=== PATIENT | male | born 1950 | race Caucasian/White ===

== ENCOUNTER 2020-03-19 14:23 | Outpatient (REF) | payer OTHER, MEDICARE, SELFPAY ==
[2020-03-19 15:02] LABS: MANUAL DIFF FLAG NO
[2020-03-19 15:04] LABS: Basophils Absolute Auto 0.1 X10*3/uL (0.0-0.2); Basophils Percent Auto 0.7 % (0-2); Eosinophils Absolute Auto 0.2 X10*3/uL (0.0-0.4); Hematocrit 45.1 % (42-52); Hemoglobin 15.3 g/dl (14.0-18.0); Imm Gran Abs Auto 0.02 X10*3/uL (0.00-0.03); Imm Gran Pct Auto 0.2 % (0.0-0.4); Lymphocytes Absolute Auto 2.1 X10*3/uL (1.2-4.9); Lymphocytes Percent Auto 25.6 % (20-40); Mean Corpuscular HGB Conc 33.9 g/dl (31.0-36.0); Mean Corpuscular Hemoglobin 32.8 pg (27.0-33.0); Mean Corpuscular Volume 96.6 fL (80-98); Mean Platelet Volume 11.2 fL (9.4-12.4); Monocytes Absolute Auto 0.8 X10*3/uL (0.1-1.2); Monocytes Percent Auto 9.3 % (2-11); Neutrophils Absolute Auto 5.1 X10*3/uL (2.0-8.3); Neutrophils Percent Auto 62.2 % (45-73); Platelet Count 176 X10*3/uL (160-400); Red Blood Count 4.67 X10*6/uL (4.60-5.80); Red Cell Distribution Width 13.1 % (11.0-16.0); White Blood Count 8.2 X10*3/uL (4.8-10.8)
[2020-03-19 15:32] LABS: Anion Gap 17 (12-20); Blood Urea Nitrogen 16 mg/dL (9-16); Calcium 9.1 mg/dL (8.4-10.2); Carbon Dioxide 23 mmol/L (22-29); Chloride 101 mmol/L (96-108); Estimated Glomerular Filt Rate 52; Glucose Random 349 mg/dL (60-115); Potassium 5.3 mmol/l (3.3-5.1); Sodium 136 mmol/L (135-145)
[2020-03-19 15:54] LABS: Thyroid Stimulating Hormone 0.67 uIU/mL (0.32-4.0)
== END 2020-03-19 14:24 | disposition home or self-care (01) ==
LOC: HO.LAB 14:23
PROVIDERS: PCP Internal Medicine; Visit Provider Internal Medicine
DX: R51.9 Headache, unspecified (principal); E03.9 Hypothyroidism, unspecified
CPT/HCPCS: 36415; 80048; 84443; 85025

== ENCOUNTER → 2020-04-10 15:45 | Outpatient (BNV) | payer BC, OTHER, MEDICARE, SELFPAY | PROVIDERS: PCP Internal Medicine; Visit Provider Internal Medicine | DX: Z85.038 Personal history of other malignant neoplasm of large intestine (principal); Z85.05 Personal history of malignant neoplasm of liver | CPT/HCPCS: 99213; 99214 ==

== ENCOUNTER 2021-03-11 14:51 | Outpatient (REF) | payer OTHER, MEDICARE, SELFPAY ==
--- NOTE | ~2021-03-11 | US_ITS ---
EXAMINATION: US VENOUS ULTRASOUND WITH DOPPLER LOWER EXTREMITY, RIGHT CLINICAL INFORMATION: Right leg edema COMPARISON: None TECHNIQUE: Ultrasound of the deep veins is performed from the hip to the calf with compression sonography and color and pulse Doppler assessment. Spectral analysis with color-flow imaging is performed. FINDINGS: There is normal venous compression and respiratory variation and augmented flow. The visualized common femoral vein, superficial femoral vein, profunda femoral vein, popliteal vein, and the trifurcation region shows no evidence of deep venous thrombosis. There is no significant popliteal fossa cyst. If the patient's symptoms persist, followup ultrasound in 5 days 7 days might be of value to exclude proximal propagation from a non-visualized calf vein. US/US venous duplex LE RT IMPRESSION: No DVT demonstrated in the right lower extremity.
[2021-03-11 15:28] LABS: INTERNATIONAL NORM RATIO 1.1 (0.9-1.1); Prothrombin Time 12.4 SEC (9.9-13.0)
[2021-03-11 15:31] LABS: Partial Thromboplastin Time 37.9 SEC (24.1-38.0)
[2021-03-11 15:36] LABS: Alanine Aminotransferase 28 U/L (0-40); Albumin Level 3.6 g/dL (3.5-5.0); Alkaline Phosphatase 73 U/L (39-117); Anion Gap 11 (12-20); Aspartate Amino Transferase 30 U/L (5-37); Bilirubin Total 0.8 mg/dL (0.0-1.0); Blood Urea Nitrogen 16 mg/dL (9-16); Calcium 9.5 mg/dL (8.4-10.2); Carbon Dioxide 25 mmol/L (22-29); Chloride 107 mmol/L (96-108); Estimated Glomerular Filt Rate > 60; Glucose Random 160 mg/dL (60-115); Sodium 139 mmol/L (135-145); Total Protein 7.2 g/dL (6.5-8.0)
== END 2021-03-11 14:52 | disposition home or self-care (01) ==
LOC: HO.LAB 14:51
PROVIDERS: PCP Internal Medicine; Visit Provider Internal Medicine
DX: Z01.818 Encounter for other preprocedural examination (principal)
CPT/HCPCS: 36415; 80053; 85610; 85730

== ENCOUNTER 2021-05-23 14:49 | Outpatient (REF) | payer OTHER, MEDICARE, SELFPAY | END 2021-05-23 14:50 | disposition home or self-care (01) | LOC: HO.US 14:49 | PROVIDERS: PCP Internal Medicine; Visit Provider Internal Medicine | DX: R60.0 Localized edema (principal) | CPT/HCPCS: 93971 ==

== ENCOUNTER 2022-02-06 14:31 | Outpatient (REF) | payer OTHER, MEDICARE, SELFPAY ==
[2022-02-06 14:55] LABS: MANUAL DIFF FLAG NO
[2022-02-06 15:17] LABS: Basophils Absolute Auto 0.1 X10*3/uL (0.0-0.2); Eosinophils Absolute Auto 0.2 X10*3/uL (0.0-0.4); Eosinophils Percent Auto 4.1 % (0-4); Hemoglobin 14.2 g/dl (14.0-18.0); Imm Gran Abs Auto 0.02 X10*3/uL (0.00-0.03); Imm Gran Pct Auto 0.3 % (0.0-0.4); Lymphocytes Absolute Auto 1.7 X10*3/uL (1.2-4.9); Lymphocytes Percent Auto 29.5 % (20-40); Mean Corpuscular HGB Conc 33.8 g/dl (31.0-36.0); Mean Corpuscular Hemoglobin 32.4 pg (27.0-33.0); Mean Corpuscular Volume 95.9 fL (80.0-98.0); Mean Platelet Volume 10.4 fL (9.4-12.4); Monocytes Absolute Auto 0.8 X10*3/uL (0.1-1.2); Monocytes Percent Auto 12.8 % (2-11); Neutrophils Absolute Auto 3.1 x10*3/uL (2.0-8.3); Neutrophils Percent Auto 52.3 % (45-73); Platelet Count 225 X10*3/uL (160-400); Red Blood Count 4.38 X10*6/uL (4.60-5.80); Red Cell Distribution Width 13.3 % (11.0-16.0); White Blood Count 5.9 X10*3/uL (4.8-10.8)
[2022-02-06 16:54] LABS: Alanine Aminotransferase 27 U/L (0-40); Albumin Level 3.8 g/dL (3.5-5.0); Alkaline Phosphatase 58 U/L (39-117); Anion Gap 12 (12-20); Aspartate Amino Transferase 28 U/L (5-37); Bilirubin Total 0.7 mg/dL (0.0-1.0); Blood Urea Nitrogen 20 mg/dL (9-16); Calcium 9.2 mg/dL (8.4-10.2); Carbon Dioxide 27 mmol/L (22-29); Chloride 104 mmol/L (96-108); Cholesterol 142 mg/dL; Estimated Glomerular Filt Rate 58; Glucose Fasting 124 mg/dL (60-99); HDL Cholesterol 37 mg/dL; LDL Cholesterol Calculated 81 mg/dl; Potassium 4.9 mmol/L (3.3-5.1); Sodium 138 mmol/L (135-145); Thyroid Stimulating Hormone 1.43 uIU/mL (0.32-4.0); Total Protein 7.2 g/dL (6.5-8.0); Triglycerides 120 mg/dL
[2022-02-11 21:04] LABS: Testosterone, Free 28.7 pg/mL (30.0-135.0); Testosterone, Total 479 ng/dL (250-1100)
== END 2022-02-06 14:32 | disposition home or self-care (01) ==
LOC: HO.LAB 14:31
PROVIDERS: PCP Internal Medicine; Visit Provider Internal Medicine
DX: I10 Essential (primary) hypertension (principal); E03.9 Hypothyroidism, unspecified; E78.5 Hyperlipidemia, unspecified; R68.82 Decreased libido; Z13.0 Encounter for screening for diseases of the blood and blood-forming organs and certain disorders involving the immune mechanism
CPT/HCPCS: 36415; 80053; 80061; 84402; 84403; 84443; 85025

== ENCOUNTER 2022-10-30 13:03 | Outpatient (AMB) | payer BC, MEDICARE, SELFPAY ==
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
[2022-10-30 13:07] VITALS: BP 160/80; PULSE 85; BMI 41.3
== END 2022-10-30 13:50 | disposition home or self-care (01) ==
PROVIDERS: PCP Internal Medicine; Visit Provider Internal Medicine
DX: B35.6 Tinea cruris (principal)
CPT/HCPCS: 99213

== ENCOUNTER 2022-12-14 14:38 | Outpatient (REF) | payer BC, MEDICARE, SELFPAY ==
--- NOTE | 2022-12-14 14:56 | ECG_ITS ---
Test Reason : preop Blood Pressure : / mmHG Vent. Rate : 060 BPM Atrial Rate : 060 BPM P-R Int : 170 ms QRS Dur : 136 ms QT Int : 436 ms P-R-T Axes : -13 -21 -12 degrees QTc Int : 436 ms Normal sinus rhythm Right bundle branch block Abnormal ECG When compared with ECG of 10-SEP-2017 15:10, Right bundle branch block is now Present Referred By: Nikos Mendez Electronically Signed By:ALFREDO SEQUEIRA MD
== END 2022-12-14 14:39 | disposition home or self-care (01) ==
LOC: HO.LAB 14:38
PROVIDERS: Visit Provider Radiology Diagnostic Radiology
DX: Z01.818 Encounter for other preprocedural examination (principal)
CPT/HCPCS: 93005

== ENCOUNTER 2023-05-23 19:11 | Inpatient (IN) | payer BC, MEDICARE, SELFPAY ==
--- NOTE | 2023-05-23 | ECG_ITS ---
Test Reason : fall Blood Pressure : / mmHG Vent. Rate : 059 BPM Atrial Rate : 059 BPM P-R Int : 162 ms QRS Dur : 154 ms QT Int : 502 ms P-R-T Axes : -01 -29 -12 degrees QTc Int : 496 ms Sinus bradycardia Non-specific intra-ventricular conduction block Abnormal ECG When compared with ECG of 14-DEC-2022 14:58, Non-specific intra-ventricular conduction block has replaced Right bundle branch block Referred By: Generic ED Physician Electronically Signed By:Noe Sams
--- NOTE | ~2023-05-23 | CT_ITS ---
EXAMINATION: CT HEAD WITHOUT CONTRAST CT CERVICAL SPINE WITHOUT CONTRAST CLINICAL INFORMATION: Fall. COMPARISON: None available. TECHNIQUE: Contiguous axial imaging was performed from the skull base to vertex without intravenous administration of contrast. Contiguous axial imaging was performed from the upper chest through the skull base without intravenous administration of contrast. Coronal and sagittal reformats were obtained at the acquisition workstation. This CT examination was performed using dose optimization techniques as appropriate, variously including the following: *Automated exposure control. *Adjustment of mA and/or kV according to patient size (this includes techniques or standardized protocols for targeted exams where dose is matched to indication/reason for exam; i.e. extremities or head). *Use of iterative reconstruction technique. DLP: 1391 mGy-cm FINDINGS: Head: There is no evidence of acute intracranial hemorrhage or edematous territorial infarction. Villarreal-white matter differentiation is preserved. Scattered and partially confluent hypoattenuation in the periventricular and deep white matter are consistent with moderate microangiopathy. Proportional prominence of the ventricles and sulcal spaces without evidence of obstructive hydrocephalus. No abnormal mass effect or midline shift. No extra-axial fluid collections. Calcific atherosclerotic disease of the intracranial internal carotid and vertebral arteries. No hyperdense vessel sign. No acute soft tissue or osseous abnormalities. Mild mucosal thickening of the paranasal sinuses. The mastoid air cells and middle ear cavities are clear. Cervical Spine: The atlantooccipital and atlantoaxial articulations remain well aligned. Mild degenerative separate entrance disease of C3-C5. Otherwise, there is anatomic alignment of the vertebral bodies and posterior elements. No evidence of acute fracture or subluxation. The vertebral body heights are maintained. Moderate degenerative disc disease from C4-C7. Mild degenerative disc disease at all visualized levels. Facet and uncovertebral joint arthropathy leads to osseous encroachment on the neural foramina from C3-C7. There is no prevertebral soft tissue swelling. Right-sided chest port in place. The thyroid gland and remaining cervical soft tissues are within normal limits. The lung apices demonstrate no abnormalities. CT/CT cervical spine wo IV con IMPRESSION: 1. No evidence of acute intracranial hemorrhage or edematous territorial infarction. 2. Moderate underlying microangiopathy and generalized cerebral volume loss. 3. No evidence of acute fracture or traumatic subluxation of the cervical spine. 4. Moderate multilevel degenerative spondyloarthropathy of the cervical spine.
--- NOTE | ~2023-05-23 | US_ITS ---
EXAMINATION: US VENOUS ULTRASOUND WITH DOPPLER LOWER EXTREMITY, RIGHT CLINICAL INFORMATION: Right lower extremity edema. COMPARISON: Venous ultrasound dated 07/23/2021. TECHNIQUE: Ultrasound of the deep veins is performed from the hip to the calf with compression sonography and color and pulse Doppler assessment. Spectral analysis with color-flow imaging is performed. Imaging is limited by body habitus and edematous changes. FINDINGS: There is normal venous compression and respiratory variation and augmented flow. The visualized common femoral vein, superficial femoral vein, profunda femoral vein, popliteal vein, and the included trifurcation region shows no evidence of deep venous thrombosis. The peroneal veins are poorly visualized due to edematous changes. There is no significant popliteal fossa cyst. If the patient's symptoms persist, followup ultrasound in 5 days 7 days might be of value to exclude proximal propagation from a non-visualized calf vein. US/US venous duplex LE RT IMPRESSION: No DVT demonstrated in the right lower extremity.
--- NOTE | ~2023-05-23 | CT_ITS ---
EXAMINATION: CT ABDOMEN AND PELVIS WITH CONTRAST CLINICAL INFORMATION: Left lower quadrant pain. COMPARISON: None available. TECHNIQUE: Multidetector volumetric images were obtained from the superior aspect of the liver through the pubic symphysis following administration 85 mL of Omnipaque 350 intravenous contrast. Sagittal and coronal reformatted images were obtained on the technologist's workstation. Oral contrast: No This CT examination was performed using dose optimization techniques as appropriate, variously including the following: *Automated exposure control *Adjustment of mA and/or kV according to patient size (this includes techniques or standardized protocols for targeted exams where dose is matched to indication/reason for exam; i.e. extremities or head) *Use of iterative reconstruction technique DLP: 1509 mGy-cm FINDINGS: LUNG BASES: There is scarring at the left lung base. LIVER, GALLBLADDER, AND BILIARY TREE: The liver is of heterogeneous diminished attenuation and irregular in contour. No definitive focal liver lesions are seen. There is no intrahepatic biliary duct dilatation. There are a few gallstones. PANCREAS: Unremarkable. SPLEEN: Unremarkable. ADRENAL GLANDS: Unremarkable. KIDNEYS AND URETERS: The kidneys are normal in size, shape, and attenuation. There are a few renal vascular calcifications. There are a few left subcentimeter hypodensities likely small cysts. There is no hydronephrosis. BLADDER: There is a1 to 2 mm calculus which appears to be within the dependent urinary bladder. GASTROINTESTINAL TRACT: The small and large bowel are unremarkable. The appendix is unremarkable. ABDOMINAL WALL: No significant hernia is appreciated. LYMPH NODES: Normal. VASCULAR: There is atherosclerotic plaque of the abdominal aorta and proximal branches. PELVIC VISCERA: Unremarkable. OSSEOUS STRUCTURES: There is diffuse thoracolumbar disc degenerative change and mild to moderate bilateral hip degenerative change. CT/CT abdomen pelvis w IV con IMPRESSION: 1. 1 to 2 mm calculus in the dependent urinary bladder. No hydronephrosis. 2. Cholelithiasis. 3. The liver is of heterogeneous diminished attenuation and and irregular in contour. This may be related to fatty infiltration and/or cirrhosis. No definitive focal liver lesions are seen. Fleischner guidelines were followed.
--- NOTE | ~2023-05-23 | XR_ITS ---
EXAMINATION: XR CHEST CLINICAL INFORMATION: Low O2 sat. COMPARISON: September 10, 2017. TECHNIQUE: Frontal view of the chest was obtained. FINDINGS: Right internal jugular approach chest port tip projects at the cavoatrial junction, allowing for patient rotation. Degenerative changes in the thoracic spine. Left basilar consolidation and left costophrenic angle blunting persist, limiting evaluation of the cardiomediastinal silhouette. No new focal consolidation appreciated in the right lung. Persistent mild right costophrenic angle blunting. XR/XR chest 1V IMPRESSION: Persistent left basilar consolidation and left costophrenic angle blunting. This study was presented today May 24, 2023 for interpretation. Prompt inpatient results provided at this time as requested by referring provider.
[2023-05-23 19:22] VITALS: BP 150/96; BP 95/48; PULSE 61; PULSE 70; RESP 16; TEMP 36.7; O2SAT 94; BMI 39.6
--- NOTE | 2023-05-23 20:17 | PC.NURSE ---
This RN attempted to access port for labs but was unsuccessful.
[2023-05-23 20:28] LABS: Mean Corpuscular HGB Conc 35.1 g/dl (31.0-36.0); Mean Corpuscular Hemoglobin 32.1 pg (27.0-33.0); Mean Corpuscular Volume 91.4 fL (80.0-98.0); Mean Platelet Volume 10.1 fL (9.4-12.4); Platelet Count 199 X10*3/uL (160-400); Red Blood Count 4.05 X10*6/uL (4.60-5.80); Red Cell Distribution Width 14.7 % (11.0-16.0)
[2023-05-23 20:33] LABS: INTERNATIONAL NORM RATIO 1.1 (0.9-1.1); Prothrombin Time 13.5 SEC (11.1-13.3)
[2023-05-23 21:02] LABS: Alanine Aminotransferase 73 U/L (0-40); Albumin Level 2.5 g/dL (3.5-5.0); Alkaline Phosphatase 101 U/L (39-117); Anion Gap 17 (12-20); Aspartate Amino Transferase 267 U/L (5-37); Bilirubin Total 0.5 mg/dL (0.0-1.0); Blood Urea Nitrogen 26 mg/dL (9-16); Calcium 8.9 mg/dL (8.4-10.2); Carbon Dioxide 24 mmol/L (22-29); Chloride 97 mmol/L (96-108); Creatinine Clr Calc Pharmacy 60.2; Estimated Glomerular Filt Rate 42; Glucose Random 137 mg/dL (60-115); Magnesium 1.6 mg/dL (1.6-2.6); Potassium 3.3 mmol/L (3.3-5.1); Sodium 135 mmol/L (135-145); Total Protein 5.3 g/dL (6.5-8.0)
[2023-05-23 21:53] VITALS: BP 107/56; PULSE 57; RESP 16; O2SAT 88
[2023-05-23 21:55] VITALS: O2SAT 96
--- NOTE | 2023-05-23 21:56 | PC.NURSE ---
O2 sat down to 88% on room air. Discussed with and pt placed 2L NC IMPROVED TO 96%
[2023-05-23 22:38] VITALS: BP 108/72; PULSE 64; RESP 14; TEMP 36.3; O2SAT 92
[2023-05-23] MEDS: oxyCODONE HCl Immed Release 5 MG TABLET 10 MG PO (23:24)
[2023-05-23] MEDS: Nystatin Powder 15 GM BOTTLE 1 APPL TOPICAL (23:25)
--- NOTE | 2023-05-23 23:44 | PC.NURSE ---
IV #20 L-AC placed for CT scan. Pt medicated per APR for 8 pain.
[2023-05-23] MEDS: iohexoL 350 MG/ML 100 ML INFUS..BTL 85 ML IV (23:48)
[2023-05-24] VITALS (8 sets, daily range): BP systolic 96–172; BP diastolic 50–98; PULSE 57–92; RESP 12–20; TEMP 36.2–37; O2SAT 93–98
[2023-05-24 01:49] LABS: Appearance Urine Cloudy; Color Urine Dark Yellow; Glucose Urine UA Negative (Negative); Leukocyte Esterase Urine Trace (Negative); Nitrite Urine Negative (Negative); PH 5.5 (5.0-9.0); Specific Gravity - Urine >= 1.030 (1.005-1.025); UMIC TRIGGER UACC YES; Urine Blood Large (3+) (Negative); Urine Ketones Trace mg/dL (Negative); Urine Protein 30 (1+) mg/dL (Neg-Trace)
[2023-05-24 02:01] LABS: Bacteria Urine None Seen (None Seen); Calcium Oxalate Crystals Urine Present; RBC Urine >20 /HPF (0-2); WBC Urine 0-5 /HPF (0-5)
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
[2023-05-24] MEDS: 0.9 % Sodium Chloride 1,000 ML 999 ML IVCONT (02:41)
[2023-05-24 04:08] LABS: Influenza A PCR NEGATIVE (Negative); Influenza B PCR NEGATIVE (Negative); Resp Syncy Virus RNA Qual PCR NEGATIVE (Negative); SARS COV2 PCR INHOUSE NEGATIVE (Negative)
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
[2023-05-24 06:48] LABS: MANUAL DIFF FLAG NO
[2023-05-24 06:51] LABS: Basophils Absolute Auto 0.1 X10*3/uL (0.0-0.2); Basophils Percent Auto 0.8 % (0-2); Eosinophils Absolute Auto 0.2 X10*3/uL (0.0-0.4); Eosinophils Percent Auto 1.4 % (0-4); Hematocrit 35.6 % (42.0-52.0); Hemoglobin 12.4 g/dl (14.0-18.0); Imm Gran Abs Auto 0.16 X10*3/uL (0.00-0.03); Imm Gran Pct Auto 1.3 % (0.0-0.4); Lymphocytes Absolute Auto 1.9 X10*3/uL (1.2-4.9); Lymphocytes Percent Auto 15.2 % (20-40); Mean Corpuscular HGB Conc 34.8 g/dl (31.0-36.0); Mean Platelet Volume 10.3 fL (9.4-12.4); Monocytes Absolute Auto 1.1 X10*3/uL (0.1-1.2); Monocytes Percent Auto 9.1 % (2-11); Neutrophils Absolute Auto 8.9 x10*3/uL (2.0-8.3); Neutrophils Percent Auto 72.2 % (45-73); Platelet Count 182 X10*3/uL (160-400); Red Blood Count 3.87 X10*6/uL (4.60-5.80); Red Cell Distribution Width 14.6 % (11.0-16.0); White Blood Count 12.3 X10*3/uL (4.8-10.8)
[2023-05-24] MEDS: oxyCODONE HCl Immed Release 5 MG TABLET PO ×3 (06:53→16:57)
[2023-05-24 07:11] LABS: B Type Natriuretic Peptide 72 pg/mL (<100)
[2023-05-24 07:12] LABS: Alanine Aminotransferase 73 U/L (0-40); Albumin Level 2.2 g/dL (3.5-5.0); Alkaline Phosphatase 88 U/L (39-117); Anion Gap 10 (12-20); Aspartate Amino Transferase 240 U/L (5-37); Bilirubin Total 0.6 mg/dL (0.0-1.0); Blood Urea Nitrogen 22 mg/dL (9-16); Carbon Dioxide 26 mmol/L (22-29); Chloride 102 mmol/L (96-108); Creatinine Clr Calc Pharmacy 85.3; Estimated Glomerular Filt Rate > 60; Glucose Random 134 mg/dL (60-115); Potassium 3.3 mmol/L (3.3-5.1); Sodium 135 mmol/L (135-145); Total Protein 4.7 g/dL (6.5-8.0)
--- NOTE | 2023-05-24 07:28 | PC.NURSE ---
This RN assisted pt up to commode with great difficulty and pt had a lot of pain. MD aware and ordered Oxycodone 5 mg and it was administered. Pt has multiple fungal area and skin breakdown to groin, scrotum and bilateral abdominal folds as well as under right breast. Interdry and nystatin powder applied.
[2023-05-24] MEDS: Lactated Ringers 1,000 ML 100 ML IVCONT (08:24)
[2023-05-24] MEDS: 0.9 % Sodium Chloride Flush 3 ML SYRINGE IVFLUSH (08:25)
--- NOTE | 2023-05-24 08:48 | PC.NURSE ---
pt moved into a hospital bed for comfort. pt tolerated bed move ok with a lot of pain but reports he is much more comfortable at this time
--- NOTE | 2023-05-24 10:01 | MHC.CM.PN ---
Met with patient in regards to discharge planning. Patient lives with his and family, ambulates with a walker and had no services prior to coming to the hospital. Patient is currently on oxygen but does not use oxygen at home. PCP verified as Dr Abrams. Patient denies having a HCP. Patient believes he has a copy at home and will attempt to obtain a copy. IMM explained and signed. Physical therapy eval is pending at this time. Patient requesting info on home health aides. Referral made to [facility] Care liaisons to see if patient would qualify for any additional services. Anticipate patient's family will transport patient home. Continue to monitor for d/c needs.
--- NOTE | 2023-05-24 10:03 | PHA.MEDREC ---
Pharmacy Consult ? Medication Reconciliation Pharmacy has completed the medication reconciliation. Spoke to patient and confirmed medication list. Patient said he takes minocycline 100 mg bid, vitamin C 1000 mg bid and Vitamin D3 2000 units bid.
[2023-05-24] MEDS: Heparin Sodium,Porcine 5,000 UNIT/ML VIAL 5000 UNIT SUBCUT ×2 (11:06→16:59)
[2023-05-24] MEDS: Nystatin Oral Susp 500,000 UNIT/5 ML ORAL.SUSP 200000 UNIT BUCCAL ×4 (11:06→22:14)
[2023-05-24] MEDS: Nystatin Powder 15 GM BOTTLE 1 APPL TOPICAL ×2 (11:07→22:15)
--- NOTE | 2023-05-24 11:23 | HO.PM.IMPN ---
Subjective Subjective Date of Service: 05/24/23 Interval History: f/u on generalized weakness, diarrhea, and renal failure. He is feeling better, renal function improved still has diarrhea Physical Exam Vital Signs: Vital Signs: Last Vital Signs Temp 98.5 F 05/24/23 03:06 Pulse 57 05/24/23 05:51 Resp 18 05/24/23 05:51 BP 112/50 L 05/24/23 05:51 Pulse Ox 94 05/24/23 05:51 O2 Del Method Nasal Cannula 05/24/23 05:51 O2 Flow Rate 2.5 05/24/23 05:51 BMI result Body Mass Index 39.6 General: AO X 3, no acute distress Resp: CTA bilateral CVS: S1,S2,RRR, nonpitting leg edam GI: +BS, NT, no distention Skin: No rash Neuro: motor grossly intact Psych: appropriate affect Objective Data Active Medications Acetaminophen (Acetaminophen 325 Mg Tablet) 650 mg PO Q6H PRN PRN Reason: Pain, Mild (Pain Scale 1-3) Ascorbic Acid (Ascorbic Acid 500 Mg Tablet) 1,000 mg PO BID [facility] Cyclobenzaprine HCl (Cyclobenzaprine Hcl 10 Mg Tablet) 10 mg PO TID [facility] Dexamethasone (Dexamethasone 4 Mg Tablet) 4 mg PO BID [facility] Dexamethasone Sodium Phosphate (Dexamethasone Sod Phosphate 4 Mg/Ml Vial) 4 mg IVPUSH ONCE ONE Stop: 05/24/23 11:21 Diphenoxylate HCl/Atropine (Diphenoxylate/Atrop 2.5/0.025 Tablet) 1 tab PO QID PRN PRN Reason: Diarrhea Gabapentin (Gabapentin 300 Mg Capsule) 300 mg PO TID [facility] Heparin Sodium (Porcine) (Heparin Sodium,Porcine 5,000 Unit/Ml Vial) 5,000 unit SUBCUT Q8H [facility] Last Admin: 05/24/23 11:06 Dose: 5,000 unit Documented By: ROCKY Lactated Ringer's (Lr) 1,000 mls @ 100 mls/hr IVCONT .Q10H [facility] Last Admin: 05/24/23 08:24 Dose: 100 mls/hr Documented By: ROCKY Nystatin (Nystatin Powder 15 Gm Bottle) 1 appl TOPICAL BID [facility]; Protocol Last Admin: 05/24/23 11:07 Dose: 1 appl Documented By: ROCKY Nystatin (Nystatin Oral Susp 500,000 Unit/5 Ml Oral.Susp) 200,000 unit BUCCAL QID [facility]; Protocol Last Admin: 05/24/23 11:06 Dose: 200,000 unit Documented By: ROCKY Nystatin/Triamcinolone Acetonide (Nystatin/Triamcinolone Cream 15 Gm Tube) 1 appl TOPICAL BID [facility] Oxycodone HCl (Oxycodone Hcl Immed Release 5 Mg Tablet) 5 mg PO Q4H PRN PRN Reason: Pain, Severe (Pain Scale 7-10) Last Admin: 05/24/23 11:06 Dose: 5 mg Documented By: ROCKY Sertraline HCl (Sertraline Hcl 50 Mg Tablet) 50 mg PO DAILY [facility] Sodium Chloride (0.9 % Sodium Chloride Flush 3 Ml Syringe) 3 ml IVFLUSH QSHIFT [facility] Last Admin: 05/24/23 08:25 Dose: 3 ml Documented By: ROCKY Vitamin D (Cholecalciferol (Vitamin D3) 25 Mcg Tablet) 50 mcg PO BID [facility] Zolpidem Tartrate (Zolpidem Tartrate 5 Mg Tablet) 5 mg PO BEDTIME [facility] Labs 05/24/23 06:18 05/24/23 06:18 Labs: Laboratory Results - last 24 hr 05/23/23 05/24/23 05/24/23 20:23 01:38 03:19 MCV 91.4 MCH 32.1 MCHC 35.1 RDW 14.7 Plt Count 199 MPV 10.1 Immature Gran % (Auto) Neut % (Auto) Lymph % (Auto) Mobile % (Auto) Eos % (Auto) Baso % (Auto) Lymph # (Auto) Mobile # (Auto) Eos # (Auto) Baso # (Auto) Abs Immat Gran (auto) Absolute Neuts (auto) Absolute Nucleated RBC 0.000 Nucleated RBC % (auto) 0.0 PT 13.5 H INR 1.1 Anion Gap 17 Estim Creat Clear Calc 60.2 Estimated GFR 42 Random Glucose 137 H Calcium 8.9 Magnesium 1.6 Total Bilirubin 0.5 AST 267 H ALT 73 H Alkaline Phosphatase 101 Troponin I High Sens 32.0 B-Natriuretic Peptide Total Protein 5.3 L Albumin 2.5 L Urine Color Dark Yellow Urine Appearance Cloudy Urine pH 5.5 Ur Specific [place] >= 1.030 H Urine Protein 30 (1+) H Urine Glucose (UA) Negative Urine Ketones Trace Urine Blood Large (3+) H Urine Nitrite Negative Ur Leukocyte Esterase Trace H Urine RBC >20 H Urine WBC 0-5 Ur Squamous Epith Cells 3-5 Calcium Oxalate Crystal Present Urine Bacteria None Seen Hyaline Casts 11-20 Influenza Type A (PCR) NEGATIVE Influenza Type B (PCR) NEGATIVE RSV RNA Qual (PCR) NEGATIVE SARS-CoV-2 RNA (RT-PCR) NEGATIVE 05/24/23 06:18 MCV 92.0 MCH 32.0 MCHC 34.8 RDW 14.6 Plt Count 182 MPV 10.3 Immature Gran % (Auto) 1.3 H Neut % (Auto) 72.2 Lymph % (Auto) 15.2 L Mobile % (Auto) 9.1 Eos % (Auto) 1.4 Baso % (Auto) 0.8 Lymph # (Auto) 1.9 Mobile # (Auto) 1.1 Eos # (Auto) 0.2 Baso # (Auto) 0.1 Abs Immat Gran (auto) 0.16 H Absolute Neuts (auto) 8.9 H Absolute Nucleated RBC 0.000 Nucleated RBC % (auto) 0.0 PT INR Anion Gap 10 L Estim Creat Clear Calc 85.3 Estimated GFR > 60 Random Glucose 134 H Calcium 8.0 L D Magnesium Total Bilirubin 0.6 AST 240 H ALT 73 H Alkaline Phosphatase 88 Troponin I High Sens B-Natriuretic Peptide 72 Total Protein 4.7 L Albumin 2.2 L Urine Color Urine Appearance Urine pH Ur Specific [place] Urine Protein Urine Glucose (UA) Urine Ketones Urine Blood Urine Nitrite Ur Leukocyte Esterase Urine RBC Urine WBC Ur Squamous Epith Cells Calcium Oxalate Crystal Urine Bacteria Hyaline Casts Influenza Type A (PCR) Influenza Type B (PCR) RSV RNA Qual (PCR) SARS-CoV-2 RNA (RT-PCR) Assessment and Plan (1) Candidiasis of genitalia: Status: Acute (2) Multiple falls: Status: Acute (3) Weakness: Status: Acute (4) JOHN (acute kidney injury): Status: Acute (5) Obesity: Status: Acute Plan 72 years old man with past medical history significant for 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 Continue IVF Acute kidney injury, renal function improved. Likely secondary to poor p.o. intake. Continue IV fluids. Hold captopril. Continue to monitor renal function. Avoid nephrotoxic agents. Fall d/t weakness. Fall precaution. PT eval Leukocytosis and hypotension, improving after IV fluids. Leukocytosis d/t steroid. No sepsis. Continue to monitor WBC count and blood pressure. Elevated transaminases. Likely due to liver mets and hepatic steatosis. Continue to monitor. Essential hypertension. Hold atenolol and captopril. Hold meds in light of hypotension Tinea cruris. Continue nystatin. Wound care consult Obstructive sleep apnea. Diarrhea, check C dif History of CHF. No symptoms reported. Morbid obesity. BMI 39.6 kg/m2. Weight loss advised history of colon cancer with mets--On chemo, oncology consult, continue Decadrone ? use micocycline, presribed 100 bid x 30 dose on May 04 DVT prophylaxis: Heparin subQ Code status: Full Need for inpatient: JOHN, weakness, related to dehydration, renal failure in setting of chemo, being hydrated with IVF Quality Stroke Does the patient have a stroke diagnosis?: No VTE Prior VTE?: No VTE Risk Level:: Medical - moderate - high VTE Device Contraindication: N/A - Device Ordered VTE Drug Contraindication: N/A - Med Ordered
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
[2023-05-24] MEDS: Diphenoxylate/Atrop 2.5/0.025 TABLET 1 TAB PO (13:28)
[2023-05-24] MEDS: dexAMETHasone sod phosphate 4 MG/ML VIAL IVPUSH (13:28)
--- NOTE | 2023-05-24 16:37 | MHC.EDTECH ---
THIS PCT ASSUMED CARE OF PATIENT AT 1500 ,VITALS TAKEN ,PT WAS A MAX ASST OF 3 PERSON TO BEDSIDE COMMODE ,PT HAD LARGE LOOSE BOWEL MOVEMENT ,CARE GIVEN AND PATIENT WAS ASSISTED BACK TO BED ,FRESH ICE WATER GIVEN ,PILLOW PLACE UNDER ARM AND LEGS .
[2023-05-24] MEDS: Cyclobenzaprine HCl 10 MG TABLET PO ×2 (16:57→22:11)
[2023-05-24] MEDS: Gabapentin 300 MG CAPSULE PO ×2 (16:58→22:11)
--- NOTE | 2023-05-24 19:58 | PC.NURSE ---
this rn assumed care of pt. pt resting in stretcher, no acute distress noted, pt normal sinus on tele 80-84bpm.
--- NOTE | 2023-05-24 21:39 | MHC.EDTECH ---
2200 rounding done ,vitals taken ,i & o done ,Patient sleeping ,call kay within Pt reach ,will continue to monitor .
[2023-05-24] MEDS: Cholecalciferol (Vitamin D3) 25 MCG TABLET 50 MCG PO (22:14)
[2023-05-24] MEDS: Zolpidem Tartrate 5 MG TABLET PO (22:14)
[2023-05-24] MEDS: Ascorbic Acid 500 MG TABLET 1000 MG PO (22:14)
[2023-05-24] MEDS: Nystatin/Triamcinolone Cream 15 GM TUBE 1 APPL TOPICAL (22:15)
--- NOTE | 2023-05-24 22:21 | PC.NURSE ---
this rn assessed pt skin, pt groin noted to be red and tender to touch. nystatin powder used per apr.
[2023-05-25] VITALS (9 sets, daily range): BP systolic 122–176; BP diastolic 64–89; PULSE 71–109; RESP 17–20; TEMP 36.3–36.8; O2SAT 95–98
[2023-05-25] MEDS: Lactated Ringers 1,000 ML 75 ML IVCONT (02:23)
[2023-05-25] MEDS: Heparin Sodium,Porcine 5,000 UNIT/ML VIAL 5000 UNIT SUBCUT ×3 (02:24→16:36)
--- NOTE | 2023-05-25 02:24 | PC.NURSE ---
pt medicated per mar, pt tolerated well. no acute distress noted, pt sating 95-97% on 3L nasal cannula.
[2023-05-25 06:33] LABS: Glucose, Whole Blood 166 mg/dL (60-115)
--- NOTE | 2023-05-25 06:35 | PC.NURSE ---
this RN and Walt son at bedside to assist in cleaning an repositioning pt. pt agitated and confused, combative with staff. pt POC drawn at this time. aware and at beside. pt repositioned to left side, pt calm and cooperative. pt right under breast noted to be red and bleeding, pt skin cleaned at this time.
--- NOTE | 2023-05-25 06:39 | MHC.EDTECH ---
0600 ROUNDING DONE ,VITALS TAKEN ,LORENZANA CATHETER EMPTY ,PATIENT WAS WASHED UP BY THIS PCT AND RN MARQUEZ ,CLEAN GOWN ON AND BEDDING CHANGE ,PATIENT WAS VERY COMBATIVE TOWARDS STAFF ,PATIENT WAS REPOSITION ON LEFT SIDE WITH PILLOW BEHIND BACK AND PILLOW UNDER HEEL ,CALL WALLACE WITHIN PT REACH .
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
[2023-05-25] MEDS: Nystatin Oral Susp 500,000 UNIT/5 ML ORAL.SUSP 200000 UNIT BUCCAL ×4 (09:07→20:25)
[2023-05-25] MEDS: Gabapentin 300 MG CAPSULE PO ×3 (09:08→20:26)
[2023-05-25] MEDS: Ascorbic Acid 500 MG TABLET 1000 MG PO ×2 (09:08→20:25)
[2023-05-25] MEDS: Cyclobenzaprine HCl 10 MG TABLET PO ×3 (09:08→20:26)
[2023-05-25] MEDS: Cholecalciferol (Vitamin D3) 25 MCG TABLET 50 MCG PO ×2 (09:09→20:25)
[2023-05-25] MEDS: oxyCODONE HCl Immed Release 5 MG TABLET PO ×3 (09:09→23:06)
[2023-05-25] MEDS: Sertraline HCL 50 MG TABLET PO (09:09)
[2023-05-25] MEDS: Nystatin Powder 15 GM BOTTLE 1 APPL TOPICAL ×2 (09:11→20:41)
[2023-05-25] MEDS: Nystatin/Triamcinolone Cream 15 GM TUBE 1 APPL TOPICAL ×2 (09:11→20:41)
--- NOTE | 2023-05-25 09:44 | P.PNIM_ITS ---
Subjective Subjective Date of Service: 05/25/23 Interval History: f/u on syncope, weakness, john Overall feels better today, still weak,blood pressure is up, no arrythmia noted on tele Physical Exam 2 Vital Signs: Vital Signs: Last Vital Signs Temp 97.4 F 05/25/23 08:53 Pulse 92 05/25/23 08:53 Resp 18 05/25/23 08:53 BP 176/87 H 05/25/23 08:53 Pulse Ox 95 05/25/23 08:53 O2 Del Method Nasal Cannula 05/25/23 08:53 O2 Flow Rate 3 05/25/23 08:53 BMI result Body Mass Index 39.6 Objective Data Active Medications Acetaminophen (Acetaminophen 325 Mg Tablet) 650 mg PO Q6H PRN PRN Reason: Pain, Mild (Pain Scale 1-3) Ascorbic Acid (Ascorbic Acid 500 Mg Tablet) 1,000 mg PO BID [facility] Last Admin: 05/25/23 09:08 Dose: 1,000 mg Documented By: ZOE Cyclobenzaprine HCl (Cyclobenzaprine Hcl 10 Mg Tablet) 10 mg PO TID [facility] Last Admin: 05/25/23 09:08 Dose: 10 mg Documented By: ZOE Diphenoxylate HCl/Atropine (Diphenoxylate/Atrop 2.5/0.025 Tablet) 1 tab PO QID PRN PRN Reason: Diarrhea Last Admin: 05/24/23 13:28 Dose: 1 tab Documented By: ROCKY Gabapentin (Gabapentin 300 Mg Capsule) 300 mg PO TID [facility] Last Admin: 05/25/23 09:08 Dose: 300 mg Documented By: ZOE Heparin Sodium (Porcine) (Heparin Sodium,Porcine 5,000 Unit/Ml Vial) 5,000 unit SUBCUT Q8H [facility] Last Admin: 05/25/23 09:09 Dose: 5,000 unit Documented By: ZOE Lactated Ringer's (Lr) 1,000 mls @ 75 mls/hr IVCONT .[id number] [facility] Last Infusion: 05/25/23 09:11 Dose: 0 mls/hr Documented By: ZOE Nystatin (Nystatin Powder 15 Gm Bottle) 1 appl TOPICAL BID [facility]; Protocol Last Admin: 05/25/23 09:11 Dose: 1 appl Documented By: ZOE Nystatin (Nystatin Oral Susp 500,000 Unit/5 Ml Oral.Susp) 200,000 unit BUCCAL QID [facility]; Protocol Last Admin: 05/25/23 09:07 Dose: 200,000 unit Documented By: ZOE Nystatin/Triamcinolone Acetonide (Nystatin/Triamcinolone Cream 15 Gm Tube) 1 appl TOPICAL BID [facility] Last Admin: 05/25/23 09:11 Dose: 1 appl Documented By: ZOE Oxycodone HCl (Oxycodone Hcl Immed Release 5 Mg Tablet) 5 mg PO Q4H PRN PRN Reason: Pain, Severe (Pain Scale 7-10) Last Admin: 05/25/23 09:09 Dose: 5 mg Documented By: ZOE Sertraline HCl (Sertraline Hcl 50 Mg Tablet) 50 mg PO DAILY [facility] Last Admin: 05/25/23 09:09 Dose: 50 mg Documented By: ZOE Sodium Chloride (0.9 % Sodium Chloride Flush 3 Ml Syringe) 3 ml IVFLUSH QSHIFT [facility] Last Admin: 05/25/23 07:23 Dose: Not Given Documented By: JUAN Non-Admin Reason: IV Running Vitamin D (Cholecalciferol (Vitamin D3) 25 Mcg Tablet) 50 mcg PO BID [facility] Last Admin: 05/25/23 09:09 Dose: 50 mcg Documented By: ZOE Zolpidem Tartrate (Zolpidem Tartrate 5 Mg Tablet) 5 mg PO BEDTIME [facility] Last Admin: 05/24/23 22:14 Dose: 5 mg Documented By: KYLE Labs 05/24/23 06:18 05/24/23 06:18 Labs: Laboratory Results - last 24 hr 05/25/23 06:30 POC Glucose 166 H Assessment and Plan (1) Candidiasis of genitalia: Status: Acute (2) Multiple falls: Status: Acute (3) Weakness: Status: Acute (4) JOHN (acute kidney injury): Status: Acute (5) Syncope: Status: Acute (6) Obesity: Status: Acute Plan 72 years old man with past medical history significant for 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 Continue IVF Acute kidney injury, renal function improved. Likely secondary to poor p.o. intake and use of HCTZ. Resolved. DC IV fluids. Fall d/t weakness. Fall precaution. PT eval Syncope--likely related to low BP, no able to stand for orthostatic, BP is better with IVF, no arrythmia noted, awaiting cardiology consult Leukocytosis and hypotension, improving after IV fluids. Leukocytosis d/t steroid. No sepsis. Continue to monitor WBC count and blood pressure. Elevated transaminases. Likely due to liver mets and hepatic steatosis. Continue to monitor. Essential hypertension. BP meds were on hold due to Hypotension but BP is high now and will restart meds Restart Captopril and Atenlol Tinea cruris. Continue nystatin. Wound care consult Obstructive sleep apnea. Diarrhea, check C dif History of CHF. No symptoms reported. Morbid obesity. BMI 39.6 kg/m2. Weight loss advised history of colon cancer with mets--On chemo, oncology consult, continue Decadrone ? use micocycline, presribed 100 bid x 30 dose on May 04 DC DVT prophylaxis: Heparin subQ Code status: Full Need for inpatient: JOHN, weakness, related to dehydration, renal failure in setting of chemo, being hydrated with IVF PT eval Quality Stroke Does the patient have a stroke diagnosis?: No VTE Prior VTE?: No VTE Risk Level:: Medical - moderate - high VTE Device Contraindication: N/A - Device Ordered VTE Drug Contraindication: N/A - Med Ordered
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
[2023-05-25] MEDS: captopriL 25 MG TABLET PO ×2 (11:52→20:25)
[2023-05-25] MEDS: 0.9 % Sodium Chloride Flush 3 ML SYRINGE IVFLUSH (16:08)
--- NOTE | 2023-05-25 16:11 | HO.WOUND ---
Wound Consult: Initial 72yr old? Male admitted to [facility] on 05/24/23 - See progress notes and H&P for detailed history.? Wound consult placed for Perineal, Abdominal skin folds, right breast skin fold and toes.? Patient initially was agreeable to assessment and photo documentation he quickly became agitated, aggressive and threatening violence.? I attempted to defuse the situation but became verbally rude and aggressive and refused assessment.? Assessment not completed will attempt assessment tomorrow.? ?
--- NOTE | 2023-05-25 18:21 | PC.NURSE ---
Pt arrived to unit from ED in bed. A&OX4 although pt states I feel off . THORNE to command with generalized weakness, BLE with 2-3+ pitting edema RLE greater than left. LSC dim denies SOB or CP on 2L oxygen via NC satting mid 90's, NS/ST on tele. BS+X4 abdomen soft non-tender denies nausea/vomiting. c/o pain to groin/scrotum areas under right breast, abdominal fold, groin and scrotum cleaned. Wound RN at bedside in afternoon pt yelling out refusing to be seen at this time. Pt refused to be seen by PT. Jackson cath in place with clear dark yellow urine, jackson care provided. Pt insisted to get OOB early evening to commode no BM able to move with 1 assist. RIght chest port-cath accessed by gas line repairer in afternoon unable to get blood return. Pt refusing peripheral draws. Dr Toscano notified. updated by MD late afternoon at bedside on plan.
[2023-05-25] MEDS: Metoprolol Tartrate 50 MG TABLET PO (20:25)
[2023-05-25] MEDS: Zolpidem Tartrate 5 MG TABLET PO (20:26)
[2023-05-26] VITALS (7 sets, daily range): BP systolic 97–165; BP diastolic 52–74; PULSE 63–124; RESP 18–27; TEMP 36.4–37.8; O2SAT 91–97
[2023-05-26] MEDS: Heparin Sodium,Porcine 5,000 UNIT/ML VIAL 5000 UNIT SUBCUT ×4 (02:41→23:33)
[2023-05-26 03:52] LABS: CDiff Gene PCR NEGATIVE (Negative)
--- NOTE | 2023-05-26 07:00 | CA_ITS ---
Transthoracic Echocardiogram Patient (Last, First, Middle): Jeffery Marcus, Gender: Male Date of : 1950 Age: 72 Procedure Date: 05/26/2023 Procedure Type: Transthoracic Echocardiogram [place] [facility] Height: 187.96 cm Weight: 139.71 kg BSA: 2.61 m2 Heart Rate: bpm BP: 176 / 87 mmHg Certified Nutritionist: Referring MD: Shiloh Beck MD Symptoms: syncope, h/o chf Study Quality: Technically Difficult Conclusions: - Normal left ventricular size and systolic function. There is severely increased left ventricular wall thickness. The visually estimated ejection fraction is between 55-60%. - Mildly increased right ventricular cavity size. There is normal right ventricular systolic function. - There is mild dilatation of the ascending aorta measuring 3.90 cm. - Technically very limited study with off axis imaging. Findings Procedure Information Contrast agent, definity, is being given per protocol without apparent complications. Left Ventricle Normal left ventricular size and systolic function. There is severely increased left ventricular wall thickness. The visually estimated ejection fraction is between 55-60%. Regional wall motion abnormalities can not be excluded due to suboptimal endocardial definition. Abnormal diastolic function is noted. Spectral Doppler is indicative of an impaired relaxation filling pattern. E/E prime ratio is between 8 and 15 consistent with indeterminate filling pressures. Right Ventricle Mildly increased right ventricular cavity size. There is normal right ventricular systolic function. Atria The left atrium was not well visualized. Aortic Valve The aortic valve was not well visualized. There is no aortic valve stenosis. There is no aortic valve regurgitation. Mitral Valve The mitral valve was not well visualized. Pulmonic Valve The pulmonic valve is likely normal. Tricuspid Valve Likely normal tricuspid valve structure and function. Tricuspid regurgitation envelope is inadequate for calculation of right ventricular systolic pressure. Normal right atrial pressure. Great Vessels There is mild dilatation of the ascending aorta measuring 3.90 cm. Venous The inferior vena cava is normal in size and collapses greater than 50% with inspiration. Pericardium/Pleural There is no evidence of pericardial effusion. Prior Study Comparison No significant change compared to prior study dated: 09/11/2017. Measurements 2D Linear Measurements IVSd: 1.62 0.6-0.9/0.6-1.0 cm LVIDd: 4.35 3.9-5.3/4.2-5.9 cm LVIDd Index: 1.67 2.4-3.2/2.2-3.1 cm/m2 LVIDs: 2.67 2.0-3.6 cm LVPWd: 1.53 0.7-1.1 cm Ao Root: 3.80 2.1-3.5 cm LA Diam: 5.20 2.7-3.8/3.0-4.0 cm LAIDs Index: 1.99 1.5-2.3 cm/m2 LV Mass: 353.14 67-162/88-224 g LV Mass Index: 135.30 43-95/49-115 g/m2 LVOT Diam: 2.80 3.0+(-)1.3 cm Mitral Valve MV Pk E: 0.67 MV Decel Time: 116.00 E'Lateral: 5.66 E'Medial: 4.90 E/E' Med: 13.70 E/E' Lat: 11.90 PHT: 34.00 MVA PHT: 6.47 Decel Lenoir: 5.79 Aortic Valve AoV Pk Nelson: 1.71 AoV Mn Nelson: 1.25 AoV VTI: 0.36 AoV Pk Grad: 12.00 Aov Mn Grad: 7.00 MELIZA Cont.VTI: 3.04 LVOT LVOT Pk Nelson: 0.79 LVOT Mn Nelson: 0.55 LVOT VTI: 0.18 LVOT Pk Grad: 3.00 LVOT Mn Grad: 1.00 LVOT Diam: 2.80 LVOT Area: 6.16 Diastolic Function MV Pk E: 0.67 E'Medial: 4.90 E/E' Med: 13.70 E' Laterial: 5.66 E/E' Lat: 11.90 Right Ventricle TAPSE (mm): 29.00 Tricuspid Valve TR Pk Nelson: 1.95 TR Pk Grad: 15.00 Great Vessels Aorta Ao Root-2D: 3.80 2.0-3.7 cm Ao Asc: 3.90 2.1-3.4 cm Pulmonary Valve PV Pk Nelson: 1.28 Peak PV Grad: 7.00 Updated in Other Vendor System with Status of Final Noe Sams MD electronically signed on 05/26/2023 7:54:57 PM with status of Final
--- NOTE | 2023-05-26 08:42 | P.PNIM_ITS ---
Subjective Subjective Date of Service: 05/26/23 Interval History: f/u on syncope, weakness, john Overall feels better but generally very weak, Low blood pressure resolved, Cr had returned to baseline, he refused labs yesterday Physical Exam 2 Vital Signs: Vital Signs: Last Vital Signs Temp 97.8 F 05/26/23 07:15 Pulse 84 05/26/23 07:15 Resp 20 05/26/23 07:15 BP 119/58 L 05/26/23 07:15 Pulse Ox 97 05/26/23 07:15 O2 Del Method Nasal Cannula 05/26/23 07:15 O2 Flow Rate 2 05/26/23 07:15 BMI result Body Mass Index 39.6 Objective Data Active Medications Acetaminophen (Acetaminophen 325 Mg Tablet) 650 mg PO Q6H PRN PRN Reason: Pain, Mild (Pain Scale 1-3) Ascorbic Acid (Ascorbic Acid 500 Mg Tablet) 1,000 mg PO BID [facility] Last Admin: 05/25/23 20:25 Dose: 1,000 mg Documented By: MARCELO Captopril (Captopril 25 Mg Tablet) 25 mg PO BID [facility]; Protocol Last Admin: 05/25/23 20:25 Dose: 25 mg Documented By: MARCELO Cyclobenzaprine HCl (Cyclobenzaprine Hcl 10 Mg Tablet) 10 mg PO TID [facility] Last Admin: 05/25/23 20:26 Dose: 10 mg Documented By: MARCELO Diphenoxylate HCl/Atropine (Diphenoxylate/Atrop 2.5/0.025 Tablet) 1 tab PO QID PRN PRN Reason: Diarrhea Last Admin: 05/24/23 13:28 Dose: 1 tab Documented By: ROCKY Gabapentin (Gabapentin 300 Mg Capsule) 300 mg PO TID [facility] Last Admin: 05/25/23 20:26 Dose: 300 mg Documented By: MARCELO Heparin Sodium (Porcine) (Heparin Sodium,Porcine 5,000 Unit/Ml Vial) 5,000 unit SUBCUT Q8H [facility] Last Admin: 05/26/23 02:41 Dose: 5,000 unit Documented By: MARCELO Metoprolol Tartrate (Metoprolol Tartrate 50 Mg Tablet) 50 mg PO BID [facility]; Protocol Last Admin: 05/25/23 20:25 Dose: 50 mg Documented By: MARCELO Morphine Sulfate (Morphine Sulfate 2 Mg/Ml Cartridge) 2 mg IVPUSH Q6H PRN; Protocol PRN Reason: Pain, Severe (Pain Scale 7-10) Nystatin (Nystatin Powder 15 Gm Bottle) 1 appl TOPICAL BID [facility]; Protocol Last Admin: 05/25/23 20:41 Dose: 1 appl Documented By: MARCELO Nystatin (Nystatin Oral Susp 500,000 Unit/5 Ml Oral.Susp) 200,000 unit BUCCAL QID [facility]; Protocol Last Admin: 05/25/23 20:25 Dose: 200,000 unit Documented By: MARCELO Nystatin/Triamcinolone Acetonide (Nystatin/Triamcinolone Cream 15 Gm Tube) 1 appl TOPICAL BID [facility] Last Admin: 05/25/23 20:41 Dose: 1 appl Documented By: MARCELO Oxycodone HCl (Oxycodone Hcl Immed Release 5 Mg Tablet) 5 mg PO Q4H PRN PRN Reason: Pain, Severe (Pain Scale 7-10) Last Admin: 05/25/23 23:06 Dose: 5 mg Documented By: MARCELO Sertraline HCl (Sertraline Hcl 50 Mg Tablet) 50 mg PO DAILY [facility] Last Admin: 05/25/23 09:09 Dose: 50 mg Documented By: ZOE Sodium Chloride (0.9 % Sodium Chloride Flush 3 Ml Syringe) 3 ml IVFLUSH QSHIFT [facility] Last Admin: 05/26/23 03:33 Dose: Not Given Documented By: MARCELO Non-Admin Reason: IV Running Vitamin D (Cholecalciferol (Vitamin D3) 25 Mcg Tablet) 50 mcg PO BID [facility] Last Admin: 05/25/23 20:25 Dose: 50 mcg Documented By: MARCELO Zolpidem Tartrate (Zolpidem Tartrate 5 Mg Tablet) 5 mg PO BEDTIME [facility] Last Admin: 05/25/23 20:26 Dose: 5 mg Documented By: MARCELO Labs 05/24/23 06:18 05/24/23 06:18 Labs: Laboratory Results - last 24 hr 05/25/23 05/26/23 13:31 02:45 Anion Gap Cancelled Estim Creat Clear Calc Cancelled Estimated GFR Cancelled Random Glucose Cancelled Calcium Cancelled C. 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 He has been suficiently hydrated and recommend ample oral hydration from here Acute kidney injury, renal function improved. Likely secondary to poor p.o. intake and use of HCTZ. Resolved. Stopped IV fluids. recheck labs, he refused yesterday Fall d/t weakness. Fall precaution. PT eval; I suspect he will need a lot of help at home and may benefit rehab Syncope--likely related to low BP, no able to stand for orthostatic. BP is better with IVF, no arrythmia noted. Seen by cardiology not believed to be acute cardiac issues but recommends changing to atenolol to metoprolol Leukocytosis and hypotension, improving after IV fluids. Leukocytosis d/t steroid. No sepsis. Continue to monitor WBC count and blood pressure. Elevated transaminases. Likely due to liver mets and hepatic steatosis. Continue to monitor. Essential hypertension. BP meds were on hold due to Hypotension but BP is high now and Restart Captopril and Atenlol change to metoprolo per cardiology recommendation Tinea cruris. Continue nystatin. Wound care consult for further recommendation Obstructive sleep apnea. Diarrhea, negative C dif History of CHF. No symptoms reported. Cancer--following by Oncology, done with decadron Morbid obesity. BMI 39.6 kg/m2. Weight loss advised history of colon cancer with mets--On chemo, oncology consult, continue Decadrone ? use micocycline, presribed 100 bid x 30 dose on May 04 DVT prophylaxis: Heparin subQ Code status: Full Need for inpatient: JOHN, weakness, related to dehydration, renal failure in setting of chemo, being hydrated with IVF PT eval Quality Stroke Does the patient have a stroke diagnosis?: No VTE Prior VTE?: No VTE Risk Level:: Medical - moderate - high VTE Device Contraindication: N/A - Device Ordered VTE Drug Contraindication: N/A - Med Ordered
[2023-05-26] MEDS: Sertraline HCL 50 MG TABLET PO (09:14)
[2023-05-26] MEDS: oxyCODONE HCl Immed Release 5 MG TABLET PO ×3 (09:14→21:39)
[2023-05-26] MEDS: Ascorbic Acid 500 MG TABLET 1000 MG PO ×2 (09:14→21:38)
[2023-05-26] MEDS: Cholecalciferol (Vitamin D3) 25 MCG TABLET 50 MCG PO ×2 (09:15→21:39)
[2023-05-26] MEDS: Cyclobenzaprine HCl 10 MG TABLET PO ×3 (09:15→21:38)
[2023-05-26] MEDS: Gabapentin 300 MG CAPSULE PO ×3 (09:15→21:38)
[2023-05-26] MEDS: captopriL 25 MG TABLET PO ×2 (09:15→21:39)
[2023-05-26] MEDS: Metoprolol Tartrate 50 MG TABLET PO ×2 (09:15→21:39)
[2023-05-26] MEDS: Nystatin Oral Susp 500,000 UNIT/5 ML ORAL.SUSP 200000 UNIT BUCCAL ×4 (09:16→21:39)
[2023-05-26] MEDS: 0.9 % Sodium Chloride Flush 3 ML SYRINGE IVFLUSH ×3 (09:17→21:42)
[2023-05-26 09:23] LABS: Hematocrit 32.6 % (42.0-52.0); Hemoglobin 11.5 g/dl (14.0-18.0); Mean Corpuscular HGB Conc 35.3 g/dl (31.0-36.0); Mean Corpuscular Hemoglobin 31.9 pg (27.0-33.0); Mean Corpuscular Volume 90.6 fL (80.0-98.0); Mean Platelet Volume 10.7 fL (9.4-12.4); Platelet Count 156 X10*3/uL (160-400); Red Cell Distribution Width 14.8 % (11.0-16.0); White Blood Count 8.6 X10*3/uL (4.8-10.8)
[2023-05-26 09:35] LABS: Anion Gap 12 (12-20); Blood Urea Nitrogen 13 mg/dL (9-16); Calcium 8.6 mg/dL (8.4-10.2); Carbon Dioxide 28 mmol/L (22-29); Chloride 100 mmol/L (96-108); Creatinine Clr Calc Pharmacy 117.6; Estimated Glomerular Filt Rate > 60; Glucose Random 144 mg/dL (60-115); Potassium 3.1 mmol/L (3.3-5.1); Sodium 137 mmol/L (135-145)
[2023-05-26] MEDS: Morphine Sulfate 2 MG/ML CARTRIDGE IVPUSH ×2 (10:01→23:35)
--- NOTE | 2023-05-26 10:50 | HO.WOUND ---
Wound Consult: Initial 72yr old? admitted to [facility] on 05/24/23 - See progress notes and H&P for detailed history.? Wound consult placed for Right Breast - abdominal skin fold, scrotum and bilateral groin.? Yesterday patient refused assessment and consultation. Today prior to pre-pain medication introductions were complete and he as informed of the plan to medicate him prior to cleansing and assessment - he was agreeable to this plan at the time. Unfortunately at the time of my arrival to the bed side Jeffery began to refuse assessment - a significant amount of time was spent trying to accommodate Gerunds questions. Ultimately he was medicated a second time within providers orders to allow our assessment see below for details. Unfortunately he did not allow himself to be repositioned and the posterior side of his scrotum and buttocks were not able to be assessed. He was educated that he was sitting on a wet dry lesia pad he continued refusal despite education that this will likely cause continued skin break down. Direct care team will reach out to me if he becomes agreeable. Right Breast assessed for MASD - at base of skin fold with partial thickness tissue loss - clean no slough noted - Triad paste applied patient tolerated well. Bilateral heels assessed for intact blanchable redness - no pressure injury noted at this time. Bilateral great toes with intact red scab / pigmentation changes noted - they patient reports these are rub underwood fro his home. He reports he has neuropathy and his toes get caught when walking Often. No topical interventions needs at this time. Left Abdominal skin fold assessed for MASD (Moisture Associated Skin Damage) Currently treating with antifungal powder and cream per provider from Oncology. Patient reports his skin has improved since starting these medications. Left Abdomen is red and erythematous with scattered area of partial and full thickness tissue loss. Patient was not able to tolerate cleansing well. Antifungal cream and Triad paste applied. Scrotum was assessed for significant skin break down very tender to touch was not able to tolerate cleansing. Triad applied in an attempt to sooth irritated, excoriated and inflamed tissue. Scrotum Left Skin Folds Left great toe Righht Great Toe Recommendations: 1. Turn and Reposition every 2 hours and as needed for patient comfort.? Use pillows or wedges to support off loading positions. 2. Off Load all bony prominences with use of pillows and heel boots if needed.? Apply Preventative foams where needed. ? 3. Monitor for incontinence and moisture control, use barrier creams when needed for prevention and treatment. 4. Provide adequate and supplemental nutrition.? 5. Order Bariatric low air loss mattress. 6. When applicable maintain blood glucose levels per Providers order. 7. Heels - Elevate heels off of surface of bed - apply preventative foams peel back and assess Q shift and change every 3 days. 8. Right Breast - Cleanse with Ph balance soap, dry thoroughly. Apply Triad to base of skin fold. Apply twice daily. 9. Left Abdominal Skin Fold, Bilateral Groin and Scrotum - Cleanse thoroughly with Ph balanced wipes, dry well with ABD pad. Gently apply antifungal per provider orders. Apply thin layer of Triad to wound bed - only pat and dab no scrub and rub when soiling occurs. Reapply thin layer PRN and twice daily. Re-consult wound care Nurse for wound deterioration or wound changes.
[2023-05-26] MEDS: Nystatin/Triamcinolone Cream 15 GM TUBE 1 APPL TOPICAL ×2 (12:14→21:45)
[2023-05-26] MEDS: Nystatin Powder 15 GM BOTTLE 1 APPL TOPICAL ×2 (12:15→21:45)
--- NOTE | 2023-05-26 13:19 | MHC.CM.PN ---
Per PT, STR is the recommendation. CM will follow.
--- NOTE | 2023-05-26 13:38 | MHC.CM.PN ---
CM assisted Patient with the completion of a HCP; he has named his as his Primary Agent and his Son as his Alternate. HCP has been uploaded into [facility], copy on the chart and original and copies to Patient.
--- NOTE | 2023-05-26 14:58 | PC.NURSE ---
pt is refusing to allow nurse/ wound care nurse to adequately assess/ clean wounds. Pt is also refusing to get of bed after multiple attempts of asking. Pt was educated on the importance of ambulation and wound care. Pt is also refusing to be rolled to remove wet pads underneath, pt educated on the importance of keeping skin dry in order to prevent future wounds. Pt states we do not know what we are doing/ talking about MD notified, will continue to educate pt.
[2023-05-26] MEDS: Zolpidem Tartrate 5 MG TABLET PO (21:39)
[2023-05-27] VITALS (7 sets, daily range): BP systolic 100–132; BP diastolic 55–73; PULSE 57–106; RESP 16–22; TEMP 35.9–38.2; O2SAT 90–99
--- NOTE | 2023-05-27 04:10 | PC.NURSE ---
Patient complains of lower pelvic pain, nausea, pressure, need to void despite having a jackson in. Bladder scanned for 223ml. Jackson noted to be quite a way out. Jackson cleaned with Promon wipes, jackson insertion site swabbed/cleaned with betadine, catheter balloon deflated, and sterile technique used to gently advance jackson catheter back into place- immediate 200ml output. Balloon refilled. Patient stated pressure was relieved. Urine dark in color, concentrated with sediment noted, clamped, UA to be sent down to lab. Zofran 4mg IVP prn given at 0417 for nausea with effectiveness .
[2023-05-27] MEDS: ondansetron HCL 4 MG/2 ML VIAL IVPUSH (04:17)
[2023-05-27] MEDS: Acetaminophen 325 MG TABLET 650 MG PO ×2 (04:17→20:49)
[2023-05-27] MEDS: oxyCODONE HCl Immed Release 5 MG TABLET PO ×3 (04:17→20:49)
--- NOTE | 2023-05-27 04:17 | PC.NURSE ---
Zofran prn, oxycodone, and tylenol given at this time during downtime and back charted.
--- NOTE | 2023-05-27 06:50 | PC.NURSE ---
Bolus administered. Lab still not up to draw Blood cultures and lactate. Called phlebotomy to ensure they get drawn ANDREW. They stated they would send someone up from phleb. Report given to LUIS MIGUEL Joyce assuming care of patient. Aware to give abx once labs drawn.
--- NOTE | 2023-05-27 06:51 | PM.EVENT ---
Event Note Date of Service: 05/27/23 Event Note: Nurse reported that patient had a fever of 100.8. Blood pressure is stable but found to be tachycardic. Obtaining lactic acid, blood culture and giving IV fluids. Empiric Rocephin. Urine was cloudy as per the nurse. Obtaining UA. Time Spent With Patient Time: Total time managing care of this patient today ____ minutes.
[2023-05-27] MEDS: 0.9 % Sodium Chloride 500 ML IV (06:57)
[2023-05-27 07:18] LABS: Appearance Urine Turbid; Glucose Urine UA Negative (Negative); Leukocyte Esterase Urine Small (1+) (Negative); Nitrite Urine Negative (Negative); Specific Gravity - Urine >= 1.030 (1.005-1.025); UMIC TRIGGER UACC YES; Urine Blood Large (3+) (Negative); Urine Ketones Trace mg/dL (Negative); Urine Protein 100 (2+) mg/dL (Neg-Trace)
[2023-05-27 07:19] LABS: Color Urine Dark Yellow
[2023-05-27 07:28] LABS: Bacteria Urine Trace (None Seen); Calcium Oxalate Crystals Urine Present; RBC Urine >20 /HPF (0-2); UACC Culture Trigger YES
[2023-05-27 07:49] LABS: Lactic Acid 1.8 mmol/L (0.5-2.0)
[2023-05-27] MEDS: Nystatin Oral Susp 500,000 UNIT/5 ML ORAL.SUSP 200000 UNIT BUCCAL ×3 (08:54→20:48)
[2023-05-27] MEDS: 0.9 % Sodium Chloride Flush 3 ML SYRINGE IVFLUSH ×3 (08:54→20:47)
[2023-05-27] MEDS: captopriL 25 MG TABLET PO ×2 (08:55→20:48)
[2023-05-27] MEDS: Ascorbic Acid 500 MG TABLET 1000 MG PO ×2 (08:55→20:48)
[2023-05-27] MEDS: Cyclobenzaprine HCl 10 MG TABLET PO ×3 (08:56→20:48)
[2023-05-27] MEDS: Metoprolol Tartrate 50 MG TABLET PO ×2 (08:56→20:49)
[2023-05-27] MEDS: Gabapentin 300 MG CAPSULE PO ×3 (08:56→20:48)
[2023-05-27] MEDS: Sertraline HCL 50 MG TABLET PO (08:56)
[2023-05-27] MEDS: Cholecalciferol (Vitamin D3) 25 MCG TABLET 50 MCG PO ×2 (08:56→20:48)
[2023-05-27] MEDS: Heparin Sodium,Porcine 5,000 UNIT/ML VIAL 5000 UNIT SUBCUT ×2 (08:56→17:09)
[2023-05-27] MEDS: cefTRIAXone sodium 1 GM in 0.9 % Sodium Chloride 50 ML IV (08:57)
[2023-05-27] MEDS: Nystatin Powder 15 GM BOTTLE 1 APPL TOPICAL ×2 (08:57→20:59)
[2023-05-27] MEDS: Nystatin/Triamcinolone Cream 15 GM TUBE 1 APPL TOPICAL ×2 (08:57→20:59)
[2023-05-27] MEDS: Morphine Sulfate 2 MG/ML CARTRIDGE IVPUSH (11:12)
[2023-05-27 12:28] LABS: Influenza A PCR NEGATIVE (Negative); Influenza B PCR NEGATIVE (Negative); Resp Syncy Virus RNA Qual PCR NEGATIVE (Negative); SARS COV2 PCR INHOUSE NEGATIVE (Negative)
--- NOTE | 2023-05-27 13:57 | P.PNIM_ITS ---
Subjective Subjective Date of Service: 05/27/23 Interval History: f/u on syncope, weakness, john, on chemo. new Fever and UTI Physical Exam 2 Vital Signs: Vital Signs: Last Vital Signs Temp 98.4 F 05/27/23 12:00 Pulse 84 05/27/23 12:00 Resp 20 05/27/23 12:00 BP 100/59 L 05/27/23 12:00 Pulse Ox 95 05/27/23 12:00 O2 Del Method Nasal Cannula 05/27/23 12:00 O2 Flow Rate 3 05/27/23 12:00 BMI result Body Mass Index 39.6 General: AO X 3, no acute distress Resp: CTA bilateral CVS: S1,S2,RRR, nonpitting leg edam GI: +BS, NT, no distention Skin: extensive perineal fungal rash--see wound care pictures Neuro: motor grossly intact Psych: appropriate affect Objective Data Active Medications Acetaminophen (Acetaminophen 325 Mg Tablet) 650 mg PO Q6H PRN PRN Reason: Pain, Mild (Pain Scale 1-3) Last Admin: 05/27/23 04:17 Dose: 650 mg Documented By: TERRI Ascorbic Acid (Ascorbic Acid 500 Mg Tablet) 1,000 mg PO BID [facility] Last Admin: 05/27/23 08:55 Dose: 1,000 mg Documented By: MARINO Captopril (Captopril 25 Mg Tablet) 25 mg PO BID [facility]; Protocol Last Admin: 05/27/23 08:55 Dose: 25 mg Documented By: MARINO Cyclobenzaprine HCl (Cyclobenzaprine Hcl 10 Mg Tablet) 10 mg PO TID [facility] Last Admin: 05/27/23 08:56 Dose: 10 mg Documented By: MARINO Diphenoxylate HCl/Atropine (Diphenoxylate/Atrop 2.5/0.025 Tablet) 1 tab PO QID PRN PRN Reason: Diarrhea Last Admin: 05/24/23 13:28 Dose: 1 tab Documented By: ROCKY Gabapentin (Gabapentin 300 Mg Capsule) 300 mg PO TID [facility] Last Admin: 05/27/23 08:56 Dose: 300 mg Documented By: MARINO Heparin Sodium (Porcine) (Heparin Sodium,Porcine 5,000 Unit/Ml Vial) 5,000 unit SUBCUT Q8H [facility] Last Admin: 05/27/23 08:56 Dose: 5,000 unit Documented By: MARINO Ceftriaxone Sodium 1 gm/ (Sodium Chloride) 50 mls @ 100 mls/hr IV Q24H [facility] Last Infusion: 05/27/23 09:29 Dose: Infused Documented By: MARINO Metoprolol Tartrate (Metoprolol Tartrate 50 Mg Tablet) 50 mg PO BID [facility]; Protocol Last Admin: 05/27/23 08:56 Dose: 50 mg Documented By: MARINO Morphine Sulfate (Morphine Sulfate 2 Mg/Ml Cartridge) 2 mg IVPUSH Q6H PRN; Protocol PRN Reason: Pain, Severe (Pain Scale 7-10) Last Admin: 05/27/23 11:12 Dose: 2 mg Documented By: MARINO Nystatin (Nystatin Powder 15 Gm Bottle) 1 appl TOPICAL BID [facility]; Protocol Last Admin: 05/27/23 08:57 Dose: 1 appl Documented By: MARINO Nystatin (Nystatin Oral Susp 500,000 Unit/5 Ml Oral.Susp) 200,000 unit BUCCAL QID [facility]; Protocol Last Admin: 05/27/23 08:54 Dose: 200,000 unit Documented By: MARINO Nystatin/Triamcinolone Acetonide (Nystatin/Triamcinolone Cream 15 Gm Tube) 1 appl TOPICAL BID [facility] Last Admin: 05/27/23 08:57 Dose: 1 appl Documented By: MARINO Ondansetron HCl (Ondansetron Hcl 4 Mg/2 Ml Vial) 4 mg IVPUSH Q8H PRN PRN Reason: Nausea Last Admin: 05/27/23 04:17 Dose: 4 mg Documented By: TERRI Comments: Administered on downtime at 0417 for c/o nausea Oxycodone HCl (Oxycodone Hcl Immed Release 5 Mg Tablet) 5 mg PO Q4H PRN PRN Reason: Pain, Severe (Pain Scale 7-10) Last Admin: 05/27/23 08:55 Dose: 5 mg Documented By: MARINO Sertraline HCl (Sertraline Hcl 50 Mg Tablet) 50 mg PO DAILY [facility] Last Admin: 05/27/23 08:56 Dose: 50 mg Documented By: MARINO Sodium Chloride (0.9 % Sodium Chloride Flush 3 Ml Syringe) 3 ml IVFLUSH QSHIFT [facility] Last Admin: 05/27/23 08:54 Dose: 3 ml Documented By: MARINO Vitamin D (Cholecalciferol (Vitamin D3) 25 Mcg Tablet) 50 mcg PO BID [facility] Last Admin: 05/27/23 08:56 Dose: 50 mcg Documented By: MARINO Zolpidem Tartrate (Zolpidem Tartrate 5 Mg Tablet) 5 mg PO BEDTIME [facility] Last Admin: 05/26/23 21:39 Dose: 5 mg Documented By: TERRI Labs 05/26/23 09:01 05/26/23 09:01 Labs: Laboratory Results - last 24 hr 05/27/23 05/27/23 05/27/23 06:05 07:27 11:40 Lactic Acid 1.8 Urine Color Dark Yellow Urine Appearance Turbid Urine pH 6.0 Ur Specific [place] >= 1.030 H Urine Protein 100 (2+) H Urine Glucose (UA) Negative Urine Ketones Trace Urine Blood Large (3+) H Urine Nitrite Negative Ur Leukocyte Esterase Small (1+) H Urine RBC >20 H Urine WBC 11-20 H Ur Squamous Epith Cells 6-10 Calcium Oxalate Crystal Present Urine Bacteria Trace Hyaline Casts 3-5 Influenza Type A (PCR) NEGATIVE Influenza Type B (PCR) NEGATIVE RSV RNA Qual (PCR) NEGATIVE SARS-CoV-2 RNA (RT-PCR) NEGATIVE Assessment and Plan (1) Candidiasis of genitalia: Status: Acute (2) Multiple falls: Status: Acute (3) Weakness: Status: Acute (4) JOHN (acute kidney injury): Status: Acute (5) Syncope: Status: Acute (6) Obesity: Status: Acute Plan 72 years old man with past medical history significant for 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 He has been suficiently hydrated and recommend ample oral hydration as able and will follow labs closely Acute kidney injury, renal function improved. Likely secondary to poor p.o. intake and use of HCTZ. Resolved. Stopped IV fluids. recheck labs, Fall d/t weakness. Fall precaution. PT recommends STR Syncope--likely related to low BP, no able to stand for orthostatic. BP is better with IVF, no arrythmia noted. Seen by cardiology not believed to be acute cardiac issues but recommends changing to atenolol to metoprolol Leukocytosis and hypotension, improving after IV fluids. Leukocytosis d/t steroid. UTI/fever/has jackson--started on Ceftriaxone, follow urine culture Elevated transaminases. Likely due to liver mets and hepatic steatosis. Continue to monitor. Essential hypertension. BP meds were on hold due to Hypotension but BP is back up and has been restarted on Captopril and Atenlol change to metoprolo per cardiology recommendation Tinea cruris with extensive perineal involvment, continue barrier topical option, wound care follow, jackson to keep skin integrity intact. Continue nystatin. Wound care consult for further recommendation Obstructive sleep apnea. Diarrhea, negative C dif History of CHF. No symptoms reported. Cancer--following by Oncology, done with decadron Morbid obesity. BMI 39.6 kg/m2. Weight loss advised DVT prophylaxis: Heparin subQ Code status: Full Need for inpatient: JOHN, weakness, related to dehydration, renal failure in setting of chemo, being hydrated with IVF PT eval Quality Stroke Does the patient have a stroke diagnosis?: No VTE Prior VTE?: No VTE Risk Level:: Medical - moderate - high VTE Device Contraindication: N/A - Device Ordered VTE Drug Contraindication: N/A - Med Ordered
[2023-05-27] MEDS: Zolpidem Tartrate 5 MG TABLET PO (20:48)
[2023-05-28] VITALS (7 sets, daily range): BP systolic 108–134; BP diastolic 57–61; PULSE 58–97; RESP 16–20; TEMP 36.1–37.1; O2SAT 96–98
[2023-05-28] MEDS: Acetaminophen 325 MG TABLET 650 MG PO ×2 (06:05→20:52)
[2023-05-28] MEDS: oxyCODONE HCl Immed Release 5 MG TABLET PO ×3 (06:06→20:51)
[2023-05-28 06:54] LABS: Anion Gap 8 (12-20); Blood Urea Nitrogen 13 mg/dL (9-16); Calcium 8.6 mg/dL (8.4-10.2); Carbon Dioxide 32 mmol/L (22-29); Chloride 101 mmol/L (96-108); Creatinine Clr Calc Pharmacy 108.3; Estimated Glomerular Filt Rate > 60; Glucose Random 119 mg/dL (60-115); Potassium 4.2 mmol/L (3.3-5.1); Sodium 137 mmol/L (135-145)
[2023-05-28] MEDS: Ascorbic Acid 500 MG TABLET 1000 MG PO ×2 (09:05→20:51)
[2023-05-28] MEDS: Cyclobenzaprine HCl 10 MG TABLET PO ×3 (09:05→20:51)
[2023-05-28] MEDS: captopriL 25 MG TABLET PO ×2 (09:06→20:51)
[2023-05-28] MEDS: Sertraline HCL 50 MG TABLET PO (09:06)
[2023-05-28] MEDS: Nystatin Oral Susp 500,000 UNIT/5 ML ORAL.SUSP 200000 UNIT BUCCAL ×4 (09:06→20:52)
[2023-05-28] MEDS: Gabapentin 300 MG CAPSULE PO ×3 (09:06→20:51)
[2023-05-28] MEDS: Metoprolol Tartrate 50 MG TABLET PO ×2 (09:06→20:51)
[2023-05-28] MEDS: Cholecalciferol (Vitamin D3) 25 MCG TABLET 50 MCG PO ×2 (09:06→20:52)
[2023-05-28] MEDS: Heparin Sodium,Porcine 5,000 UNIT/ML VIAL 5000 UNIT SUBCUT ×2 (09:12→18:18)
[2023-05-28] MEDS: 0.9 % Sodium Chloride Flush 3 ML SYRINGE IVFLUSH ×2 (09:12→20:52)
[2023-05-28] MEDS: cefTRIAXone sodium 1 GM in 0.9 % Sodium Chloride 50 ML IV (09:12)
[2023-05-28] MEDS: Nystatin Powder 15 GM BOTTLE 1 APPL TOPICAL ×2 (09:19→21:01)
[2023-05-28] MEDS: Nystatin/Triamcinolone Cream 15 GM TUBE 1 APPL TOPICAL ×2 (09:19→21:01)
--- NOTE | 2023-05-28 13:01 | MHC.CM.PN ---
Addendum entered by Rosenda Marbury 05/28/23 16:08: Pts had concerns about pts chemo plan, she will follow up with Dr. Beck on Wednesday 05/31 as she is currently on vacation. Original Note: EMR reviewed and per MD rounds, pt is medically cleared for D/C to [facility]. Bed offer received from [facility], this CM met with pt and his present at bedside, and they accept bed offer at [facility]. [facility] notified and will go for auth. Hospitalist aware.
[2023-05-28] MEDS: Morphine Sulfate 2 MG/ML CARTRIDGE IVPUSH (13:08)
--- NOTE | 2023-05-28 14:40 | HO.PM.IMPN ---
Subjective Subjective Date of Service: 05/28/23 Interval History: He is reporting feeling better today, vital are stable and no more fever, he's still pretty much unambulatory and not in bed all the time Physical Exam Vital Signs: Vital Signs: Last Vital Signs Temp 97.1 F 05/28/23 12:00 Pulse 72 05/28/23 12:00 Resp 20 05/28/23 12:00 BP 134/59 L 05/28/23 12:00 Pulse Ox 97 05/28/23 12:00 O2 Del Method Nasal Cannula 05/28/23 12:00 O2 Flow Rate 3 05/28/23 12:00 BMI result Body Mass Index 39.6 General: AO X 3, no acute distress Resp: CTA bilateral CVS: S1,S2,RRR, nonpitting leg edema in both legs GI: +BS, NT, no distention Skin: extensive perineal and abdominal area fungal rash--see wound care pictures Neuro: motor grossly intact Psych: appropriate affect Objective Data Active Medications Acetaminophen (Acetaminophen 325 Mg Tablet) 650 mg PO Q6H PRN PRN Reason: Pain, Mild (Pain Scale 1-3) Last Admin: 05/28/23 06:05 Dose: 650 mg Documented By: KIKI-RIVBERNARD Ascorbic Acid (Ascorbic Acid 500 Mg Tablet) 1,000 mg PO BID [facility] Last Admin: 05/28/23 09:05 Dose: 1,000 mg Documented By: ZOE Captopril (Captopril 25 Mg Tablet) 25 mg PO BID [facility]; Protocol Last Admin: 05/28/23 09:06 Dose: 25 mg Documented By: ZOE Cyclobenzaprine HCl (Cyclobenzaprine Hcl 10 Mg Tablet) 10 mg PO TID [facility] Last Admin: 05/28/23 14:29 Dose: 10 mg Documented By: ZOE Diphenoxylate HCl/Atropine (Diphenoxylate/Atrop 2.5/0.025 Tablet) 1 tab PO QID PRN PRN Reason: Diarrhea Last Admin: 05/24/23 13:28 Dose: 1 tab Documented By: ROCKY Gabapentin (Gabapentin 300 Mg Capsule) 300 mg PO TID [facility] Last Admin: 05/28/23 14:28 Dose: 300 mg Documented By: ZOE Heparin Sodium (Porcine) (Heparin Sodium,Porcine 5,000 Unit/Ml Vial) 5,000 unit SUBCUT Q8H [facility] Last Admin: 05/28/23 09:12 Dose: 5,000 unit Documented By: ZOE Ceftriaxone Sodium 1 gm/ (Sodium Chloride) 50 mls @ 100 mls/hr IV Q24H [facility] Last Infusion: 05/28/23 09:45 Dose: Infused Documented By: ZOE Metoprolol Tartrate (Metoprolol Tartrate 50 Mg Tablet) 50 mg PO BID [facility]; Protocol Last Admin: 05/28/23 09:06 Dose: 50 mg Documented By: ZEO Morphine Sulfate (Morphine Sulfate 2 Mg/Ml Cartridge) 2 mg IVPUSH Q6H PRN; Protocol PRN Reason: Pain, Severe (Pain Scale 7-10) Last Admin: 05/28/23 13:08 Dose: 2 mg Documented By: MATTI Nystatin (Nystatin Powder 15 Gm Bottle) 1 appl TOPICAL BID [facility]; Protocol Last Admin: 05/28/23 09:19 Dose: 1 appl Documented By: ZOE Nystatin (Nystatin Oral Susp 500,000 Unit/5 Ml Oral.Susp) 200,000 unit BUCCAL QID [facility]; Protocol Last Admin: 05/28/23 14:29 Dose: 200,000 unit Documented By: ZOE Nystatin/Triamcinolone Acetonide (Nystatin/Triamcinolone Cream 15 Gm Tube) 1 appl TOPICAL BID [facility] Last Admin: 05/28/23 09:19 Dose: 1 appl Documented By: ZOE Ondansetron HCl (Ondansetron Hcl 4 Mg/2 Ml Vial) 4 mg IVPUSH Q8H PRN PRN Reason: Nausea Last Admin: 05/27/23 04:17 Dose: 4 mg Documented By: TERRI Comments: Administered on downtime at 0417 for c/o nausea Oxycodone HCl (Oxycodone Hcl Immed Release 5 Mg Tablet) 5 mg PO Q4H PRN PRN Reason: Pain, Severe (Pain Scale 7-10) Last Admin: 05/28/23 14:28 Dose: 5 mg Documented By: ZOE Sertraline HCl (Sertraline Hcl 50 Mg Tablet) 50 mg PO DAILY [facility] Last Admin: 05/28/23 09:06 Dose: 50 mg Documented By: ZOE Sodium Chloride (0.9 % Sodium Chloride Flush 3 Ml Syringe) 3 ml IVFLUSH QSHIFT [facility] Last Admin: 05/28/23 09:12 Dose: 3 ml Documented By: ZOE Vitamin D (Cholecalciferol (Vitamin D3) 25 Mcg Tablet) 50 mcg PO BID [facility] Last Admin: 05/28/23 09:06 Dose: 50 mcg Documented By: ZOE Zolpidem Tartrate (Zolpidem Tartrate 5 Mg Tablet) 5 mg PO BEDTIME [facility] Last Admin: 05/27/23 20:48 Dose: 5 mg Documented By: KIKI-RIVLA Labs 05/26/23 09:01 05/28/23 06:13 Labs: Laboratory Results - last 24 hr 05/28/23 06:13 Hold Purple Top SEE NOTE Anion Gap 8 L Estim Creat Clear Calc 108.3 Estimated GFR > 60 Random Glucose 119 H Calcium 8.6 Microbiology Microbiology Results: Microbiology 05/27/23 Unknown Urine Culture - Final Urine Catheterized - Jackson Catheter No growth. 05/27/23 07:27 Blood Culture - Preliminary Blood - Venous No growth after 24 hours. 05/27/23 07:15 Blood Culture - Preliminary Blood - Venous No growth after 24 hours. 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 He has been suficiently hydrated, he remains generally very weak and will need extensive therapy to get back on his feet Acute kidney injury, renal function improved. Likely secondary to poor p.o. intake and use of HCTZ. Resolved. Stopped IV fluids. recheck labs, Fall d/t weakness. Fall precaution. PT recommends STR, he is agreeable Syncope--likely related to low BP, no able to stand for orthostatic. BP is better with IVF, no arrythmia noted. Seen by cardiology not believed to be acute cardiac issues but recommends changing to atenolol to metoprolol Leukocytosis and hypOtension, improving after IV fluids. Leukocytosis d/t steroid. UTI/fever/has jackson--started on Ceftriaxone, follow urine culture Elevated transaminases. Likely due to liver mets and hepatic steatosis. Continue to monitor. Essential hypertension. BP meds were on hold due to Hypotension but BP is back up and has been restarted on Captopril and Atenlol change to metoprolo per cardiology recommendation Tinea cruris with extensive perineal involvment, and under skin fold, continue barrier topical option, wound care follow, jackson to keep skin integrity intact. Continue nystatin. Wound care consult for further recommendation Obstructive sleep apnea. Diarrhea, negative C dif History of CHF. No symptoms reported. Cancer--following by Oncology, future chemotherapy deferred per Dr. Beck not for the next weeks at least Morbid obesity. BMI 39.6 kg/m2. Weight loss advised DVT prophylaxis: Heparin subQ Code status: Full Need for inpatient: JOHN, weakness, related to dehydration, renal failure in setting of chemo, being hydrated with IVF PT eval recommends [facility] Quality Stroke Does the patient have a stroke diagnosis?: No VTE Prior VTE?: No VTE Risk Level:: Medical - moderate - high VTE Device Contraindication: N/A - Device Ordered VTE Drug Contraindication: N/A - Med Ordered
[2023-05-28 16:51] LABS: Lymphocytes Absolute Auto 0.8 X10*3/uL (1.2-4.9); PLT CLUMP 1; SCAN SMEAR FLAG 1
[2023-05-28 16:53] LABS: Basophils Percent Auto 0.8 % (0-2); Eosinophils Absolute Auto 0.2 X10*3/uL (0.0-0.4); Eosinophils Percent Auto 3.2 % (0-4); Hematocrit 30.2 % (42.0-52.0); Hemoglobin 10.7 g/dl (14.0-18.0); Imm Gran Abs Auto 0.08 X10*3/uL (0.00-0.03); Imm Gran Pct Auto 1.6 % (0.0-0.4); Lymphocytes Percent Auto 16.5 % (20-40); MANUAL DIFF FLAG SCAN; Mean Corpuscular HGB Conc 35.4 g/dl (31.0-36.0); Mean Corpuscular Hemoglobin 32.9 pg (27.0-33.0); Mean Corpuscular Volume 92.9 fL (80.0-98.0); Monocytes Absolute Auto 0.4 X10*3/uL (0.1-1.2); Monocytes Percent Auto 8.9 % (2-11); Neutrophils Absolute Auto 3.4 x10*3/uL (2.0-8.3); Red Blood Count 3.25 X10*6/uL (4.60-5.80)
[2023-05-28 16:57] LABS: PLT ABN DIST 1
[2023-05-28 17:05] LABS: Alanine Aminotransferase 51 U/L (0-40); Albumin Level 2.1 g/dL (3.5-5.0); Alkaline Phosphatase 68 U/L (39-117); Aspartate Amino Transferase 48 U/L (5-37); Bilirubin Direct 0.1 mg/dL (0.0-0.5); Bilirubin Total 0.4 mg/dL (0.0-1.0); Total Protein 5.1 g/dL (6.5-8.0)
[2023-05-28 17:41] LABS: SLIDE REVIEW VERIFIED
[2023-05-28] MEDS: polyethylene glycoL 3350 17 GM POWD.PACK PO (20:49)
[2023-05-28] MEDS: bisacodyL 5 MG TABLET.DR PO (20:51)
[2023-05-28] MEDS: Zolpidem Tartrate 5 MG TABLET PO (20:51)
[2023-05-28] MEDS: ondansetron HCL 4 MG/2 ML VIAL IVPUSH (20:53)
[2023-05-29] MEDS: Heparin Sodium,Porcine 5,000 UNIT/ML VIAL 5000 UNIT SUBCUT ×3 (00:43→17:28)
[2023-05-29 03:11] VITALS: BP 119/56; PULSE 72; RESP 18; TEMP 36.3; O2SAT 97
[2023-05-29 07:44] VITALS: BP 138/67; PULSE 74; RESP 20; TEMP 36.3; O2SAT 97
[2023-05-29] MEDS: cefTRIAXone sodium 1 GM in 0.9 % Sodium Chloride 50 ML IV (10:01)
[2023-05-29] MEDS: Ascorbic Acid 500 MG TABLET 1000 MG PO ×2 (10:03→20:13)
[2023-05-29] MEDS: Cholecalciferol (Vitamin D3) 25 MCG TABLET 50 MCG PO ×2 (10:05→20:14)
[2023-05-29] MEDS: captopriL 25 MG TABLET PO ×2 (10:05→20:15)
[2023-05-29] MEDS: Cyclobenzaprine HCl 10 MG TABLET PO ×3 (10:06→20:14)
[2023-05-29] MEDS: Gabapentin 300 MG CAPSULE PO ×3 (10:06→20:15)
[2023-05-29] MEDS: Metoprolol Tartrate 50 MG TABLET PO ×2 (10:07→20:12)
[2023-05-29] MEDS: Nystatin Oral Susp 500,000 UNIT/5 ML ORAL.SUSP 200000 UNIT BUCCAL ×3 (10:07→20:12)
[2023-05-29] MEDS: Sertraline HCL 50 MG TABLET PO (10:08)
[2023-05-29] MEDS: Nystatin/Triamcinolone Cream 15 GM TUBE 1 APPL TOPICAL ×2 (10:09→20:20)
[2023-05-29] MEDS: Nystatin Powder 15 GM BOTTLE 1 APPL TOPICAL ×2 (10:09→20:20)
--- NOTE | 2023-05-29 10:42 | PM.DS ---
DS: Providers Provider Date of Service: 06/02/23 Date of admission: 05/24/23 05:23 Primary care physician: Alban Abrams MD Consults: 05/24/23 10:16 Consult to Wound Care Routine Reason for consultation: perineal candidiasis 05/24/23 11:33 Consult to Hematology / Oncology Routine Consulting Provider: Shiloh Beck Reason for consultation: colon cancer with met Has provider been notified: Yes 05/24/23 14:45 Consult to Cardiology Routine Consulting Provider: [facility] [place] Cardi[facility] Services Reason for consultation: Syncope Has provider been notified: Yes DS: Diagnosis Discharge Diagnosis (1) Candidiasis of genitalia: Status: Acute (2) Multiple falls: Status: Acute (3) Syncope: Status: Acute (4) Obesity: Status: Acute DS: Summary Hospital Course Hospital Course: admission hpi Chief Complaint: Generalized weakness Jeffery Marcus is a 72 years old man with past medical history significant for 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 Beck), BRANDON, CHF, obesity and hypertension presents to the emergency department complaining of general weakness. He fell today while walking to the bathroom secondary to dizziness. Denied loss of consciousness. Reported left lower quadrant pain. He did not report any headache, shortness on breath, chest pain, palpitations, nausea, vomiting or diarrhea. He reported poor appetite. In the ED, he was found to have low BP. There is no tachycardia or fever. Oxygen saturation dropped to 88% on room air. Currently requiring 2 liters/minute supplemental oxygen via nasal cannula. Blood workup is remarkable for leukocytosis, 19.0, hemoglobin 13.0 and platelet 199. Electrolyte abnormal. BUN and creatinine are increased, 26 and 1.6, respectively. Transaminases. Alk-phos and bilirubin are normal. Troponin is 32.0. EKG showed sinus bradycardia, heart rate bpm without acute ischemia. Abdomen pelvis CT scan showed 1-2 cm calculus in the dependent urinary bladder without hydronephrosis, cholecystitis and fatty liver/cirrhosis changes. ED tx: oxycodone 10 mg PO, NS 1L bolus and nystatin powder. 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 He has been suficiently hydrated, generalised weakness somewhat improving but will need extensive therapy to get back on his feet, seen by Pt- recomended rehab. Acute kidney injury, renal function improved. Likely secondary to poor p.o. intake and use of HCTZ. Resolved. Stopped IV fluids. moniter bmp in rehab in 1 week. Syncope--likely related to low BP, no able to stand for orthostatic. BP is better with IVF, no arrythmia noted. Seen by cardiology not believed to be acute cardiac issues but recommends changing to atenolol to metoprolol. Leukocytosis and hypOtension, improving after IV fluids. Leukocytosis d/t steroid,leucocytosis seems improved. UTI/fever/has jackson--started on Ceftriaxone, follow urine culture: Completed ceftriaxone for 7 days, urine culture negative. Consider trial of voiding and discontinuing Jackson in rehab. Elevated transaminases. Likely due to liver mets and hepatic steatosis. Continue to monitor. Monitor LFTs in 1 week. Tinea cruris with extensive perineal involvment, and under skin fold, continue barrier topical option, wound care follow, jackson to keep skin integrity intact,Wound care consult for further recommendation-please see below -inaddition patient is on topical antifungals ,added po fluconazole 100 mg daily ( end date 06/06/23). skin /wound care: Turn and Reposition every 2 hours and as needed for patient comfort.? Use pillows or wedges to support off loading positions. Off Load all bony prominences with use of pillows and heel boots if needed.? Apply Preventative foams where needed. ? Monitor for incontinence and moisture control, use barrier creams when needed for prevention and treatment. Provide adequate and supplemental nutrition.? Order Bariatric low air loss mattress. When applicable maintain blood glucose levels per Providers order. Heels - Elevate heels off of surface of bed - apply preventative foams peel back and assess Q shift and change every 3 days. Right Breast - Cleanse with Ph balance soap, dry thoroughly. Apply Triad to base of skin fold. Apply twice daily. Left Abdominal Skin Fold, Bilateral Groin and Scrotum - Cleanse thoroughly with Ph balanced wipes, dry well with ABD pad. Gently apply antifungal per provider orders. inaddition surgery recomended :Mix antifungal cream with zinc oxide 20% barrier cream and apply in the areas. Clean often reapply once and then p.r.n. daily. Patient would benefit from using InterDry if we have it to line the creases to wick away moisture. avoid triad . Cancer--following by Oncology, future chemotherapy deferred per Dr. Beck for now ,follow-up with Oncology outpatient. plan: plan: fluconazole 100 mg daily for 4 more says. atenolol changed to metoprolol. competed ceftriaxone for uti.urine cultures negative. Elevated transaminases. Likely due to liver mets and hepatic steatosis. Trending down. moniter lFt's in 1 week. wound care in rehab ,consider surgery followup if needed. Above management discussed with the patient and his in detail length, they both understand and in agreement with the above plan, time spent 50 minute. Time Attestation Discharge Coordination Time (in mins): 50 Quality: Safe Use of Opioids Does Pt have an Active Cancer Diagnosis on the Problem List?: Yes Opioid Measure Date for [facility] Report: 06/10/23 Opioid Measure Time for [facility] Report: 16:01 Quality: Stroke Does the patient have a stroke diagnosis?: No Physical Exam Vital Signs: Vital Signs: Last Vital Signs Temp 97.4 F 05/29/23 07:44 Pulse 74 05/29/23 07:44 Resp 20 05/29/23 07:44 BP 138/67 05/29/23 07:44 Pulse Ox 97 05/29/23 07:44 O2 Del Method Nasal Cannula 05/29/23 07:44 O2 Flow Rate 3 05/29/23 07:44 BMI result Body Mass Index 39.6 DS: Data Data Completed and Pending Labs on day of discharge: Laboratory Results - last 24 hr 05/28/23 06:13 WBC 5.0 RBC 3.25 L Hgb 10.7 L Hct 30.2 L MCV 92.9 MCH 32.9 MCHC 35.4 RDW 16.0 Plt Count TNP MPV 13.0 H Immature Gran % (Auto) 1.6 H Neut % (Auto) 69.0 Lymph % (Auto) 16.5 L Cavalier % (Auto) 8.9 Eos % (Auto) 3.2 Baso % (Auto) 0.8 Lymph # (Auto) 0.8 L [place] # (Auto) 0.4 Eos # (Auto) 0.2 Baso # (Auto) 0.0 Abs Immat Gran (auto) 0.08 H Absolute Neuts (auto) 3.4 Absolute Nucleated RBC 0.100 H Nucleated RBC % (auto) 2.0 H Smear Tech's Comments VERIFIED Total Bilirubin 0.4 Direct Bilirubin 0.1 AST 48 H ALT 51 H Alkaline Phosphatase 68 Total Protein 5.1 L Albumin 2.1 L Preliminary micro results at discharge 05/27/23 07:27 Blood Culture - Preliminary Blood - Venous No growth after 48 hours. 05/27/23 07:15 Blood Culture - Preliminary Blood - Venous No growth after 48 hours. Discharge Plan Discharge Anticipated Discharge Date/Time: 06/02/23 09:11 Patient Disposition: er [facility] Discharge Diagnosis: Generalized weakness, JOHN, UTI, perineal skin wound , Referrals: [facility] [Outside] - 1 Week Alban Abrams MD [Primary Care Provider] - 1 Week Rosio Hicks MD [Physician] - 1 Week (follow up outaptient) Discharge Medications: New nystatin 100,000 unit/mL Suspension 200,000 unit buccal QID Qty: 1 0RF Rx Instructions: end date in 06/03/2023 zinc oxide 20 % Ointment 1 appl topical BID PRN (Reason: Diaper Rash) Qty: 1 0RF Protocol: Apply to: Apply to: mix with nystatin cream in 2 zinc oxide 1 nystatin part and apply rasharea nystatin 100,000 unit/gram Powder 1 appl topical BID Qty: 1 0RF Protocol: Apply to: Apply to: affected area oxycodone 5 mg Tablet 10 mg PO BID PRN (Reason: Pain, Mild (Pain Scale 1-3)) Qty: 10 0RF Rx Instructions: use oxycodone before dressing change metoprolol tartrate 50 mg Tablet 50 mg PO BID Qty: 1 0RF Protocol: Hold for SBP/HR < HOLD for SBP < : 90 HOLD for HR < : 60 Continued captopril 25 mg tablet 25 mg PO BID Qty: 180 8RF sertraline 50 mg tablet 50 mg PO DAILY Qty: 90 8RF diphenoxylate-atropine 2.5-0.025 mg tablet 1 tab PO QID PRN (Reason: Diarrhea) Qty: 60 5RF cyclobenzaprine 10 mg tablet 10 mg PO TID Qty: 90 8RF zolpidem 12.5 mg tablet,ext release multiphase 12.5 mg PO BEDTIME Qty: 30 0RF oxycodone-acetaminophen 10-325 mg tablet 1 tab PO Q12H PRN (Reason: pain) Qty: 60 0RF ondansetron 8 mg Tablet,Disintegrating 8 mg PO Q8H PRN (Reason: Nausea And Vomiting) Qty: 60 2RF dexamethasone 4 mg Tablet 4 mg PO BID Qty: 30 3RF Rx Instructions: for 2 days after chemo nystatin 100,000 unit/gram Powder 1 appl TOPICAL TID Qty: 1000 2RF ascorbic acid (vitamin C) [Vitamin C] 500 mg tablet 1,000 mg PO BID gabapentin 300 mg capsule 300 mg PO TID cholecalciferol (vitamin D3) [Vitamin D3] 50 mcg (2,000 unit) tablet 50 mcg PO BID clotrimazole-betamethasone 1-0.05 % cream 1 appl topical BID 14 Days Qty: 45 0RF Discontinued atenolol 100 mg tablet 100 mg PO DAILY Qty: 90 3RF minocycline 50 mg capsule 100 mg PO BID fluconazole [Diflucan] 100 mg tablet 100 mg PO DAILY Discharge Orders: Discharge Order (Routine); Ordered 06/02/23 Ordered By: Lit Peng Diet: Advance to usual diet Activity on Discharge: As tolerated Stand Alone Forms: Patient Portal Discharge page Print Language: Spanish Care Plan Goals: skin care: Turn and Reposition every 2 hours and as needed for patient comfort.? Use pillows or wedges to support off loading positions. Off Load all bony prominences with use of pillows and heel boots if needed.? Apply Preventative foams where needed. ? Monitor for incontinence and moisture control, use barrier creams when needed for prevention and treatment. Provide adequate and supplemental nutrition.? Order Bariatric low air loss mattress. When applicable maintain blood glucose levels per Providers order. Heels - Elevate heels off of surface of bed - apply preventative foams peel back and assess Q shift and change every 3 days. Right Breast - Cleanse with Ph balance soap, dry thoroughly. Apply Triad to base of skin fold. Apply twice daily. Left Abdominal Skin Fold, Bilateral Groin and Scrotum - Cleanse thoroughly with Ph balanced wipes, dry well with ABD pad. Gently apply antifungal per provider orders. inaddition surgery recomended :Mix antifungal cream with zinc oxide 20% barrier cream and apply in the areas. Clean often reapply once and then p.r.n. daily. Patient would benefit from using InterDry if we have it to line the creases to wick away moisture. avoid triad. Health Concerns: plan: fluconazole 100 mg daily for 4 more says. atenolol changed to metoprolol. competed ceftriaxone for uti.urine cultures negative. Elevated transaminases. Likely due to liver mets and hepatic steatosis. Trending down. moniter lFt's in 1 week. wound care in rehab ,consider surgery followup if needed. Plan of Treatment: as above. Assessment: as above. Discharge Date/Time: 06/02/23 15:40
--- NOTE | 2023-05-29 10:56 | P.PNIM_ITS ---
Subjective Subjective Date of Service: 05/30/23 Interval History: He continues to feels better, he selpt the best since hospitalization, unfortunately he is not making any progresssing with activity and movment His vital signs are normal and has no fever Physical Exam 2 Vital Signs: Vital Signs: Last Vital Signs Temp 97.4 F 05/29/23 07:44 Pulse 74 05/29/23 07:44 Resp 20 05/29/23 07:44 BP 138/67 05/29/23 07:44 Pulse Ox 97 05/29/23 07:44 O2 Del Method Nasal Cannula 05/29/23 07:44 O2 Flow Rate 3 05/29/23 07:44 BMI result Body Mass Index 39.6 General: AO X 3, no acute distress Resp: CTA bilateral CVS: S1,S2,RRR, nonpitting leg edema in both legs GI: +BS, NT, no distention Skin: extensive perineal and abdominal area fungal rash--see wound care pictures Neuro: motor grossly intact Psych: appropriate affect Objective Data Active Medications Acetaminophen (Acetaminophen 325 Mg Tablet) 650 mg PO Q6H PRN PRN Reason: Pain, Mild (Pain Scale 1-3) Last Admin: 05/28/23 20:52 Dose: 650 mg Documented By: N-RIVLA Ascorbic Acid (Ascorbic Acid 500 Mg Tablet) 1,000 mg PO BID [facility] Last Admin: 05/29/23 10:03 Dose: 1,000 mg Documented By: PODMORP Captopril (Captopril 25 Mg Tablet) 25 mg PO BID [facility]; Protocol Last Admin: 05/29/23 10:05 Dose: 25 mg Documented By: PODMORP Cyclobenzaprine HCl (Cyclobenzaprine Hcl 10 Mg Tablet) 10 mg PO TID [facility] Last Admin: 05/29/23 10:06 Dose: 10 mg Documented By: PODMORP Gabapentin (Gabapentin 300 Mg Capsule) 300 mg PO TID [facility] Last Admin: 05/29/23 10:06 Dose: 300 mg Documented By: JENNIFREMORP Heparin Sodium (Porcine) (Heparin Sodium,Porcine 5,000 Unit/Ml Vial) 5,000 unit SUBCUT Q8H [facility] Last Admin: 05/29/23 10:07 Dose: 5,000 unit Documented By: PODMORP Ceftriaxone Sodium 1 gm/ (Sodium Chloride) 50 mls @ 100 mls/hr IV Q24H [facility] Last Admin: 05/29/23 10:01 Dose: 100 mls/hr Documented By: PODMORP Metoprolol Tartrate (Metoprolol Tartrate 50 Mg Tablet) 50 mg PO BID [facility]; Protocol Last Admin: 05/29/23 10:07 Dose: 50 mg Documented By: PODMORP Morphine Sulfate (Morphine Sulfate 2 Mg/Ml Cartridge) 2 mg IVPUSH Q6H PRN; Protocol PRN Reason: Pain, Severe (Pain Scale 7-10) Last Admin: 05/28/23 13:08 Dose: 2 mg Documented By: ALTAMAT Nystatin (Nystatin Powder 15 Gm Bottle) 1 appl TOPICAL BID [facility]; Protocol Last Admin: 05/29/23 10:09 Dose: 1 appl Documented By: JENNIFERMORP Nystatin (Nystatin Oral Susp 500,000 Unit/5 Ml Oral.Susp) 200,000 unit BUCCAL QID [facility]; Protocol Last Admin: 05/29/23 10:07 Dose: 200,000 unit Documented By: JENNIFERMORP Nystatin/Triamcinolone Acetonide (Nystatin/Triamcinolone Cream 15 Gm Tube) 1 appl TOPICAL BID [facility] Last Admin: 05/29/23 10:09 Dose: 1 appl Documented By: JENNIFERMORP Ondansetron HCl (Ondansetron Hcl 4 Mg/2 Ml Vial) 4 mg IVPUSH Q8H PRN PRN Reason: Nausea Last Admin: 05/28/23 20:53 Dose: 4 mg Documented By: KIKI-KING Sertraline HCl (Sertraline Hcl 50 Mg Tablet) 50 mg PO DAILY [facility] Last Admin: 05/29/23 10:08 Dose: 50 mg Documented By: PODMORP Sodium Chloride (0.9 % Sodium Chloride Flush 3 Ml Syringe) 3 ml IVFLUSH QSHIFT [facility] Last Admin: 05/28/23 20:52 Dose: 3 ml Documented By: KIKI-KING Vitamin D (Cholecalciferol (Vitamin D3) 25 Mcg Tablet) 50 mcg PO BID [facility] Last Admin: 05/29/23 10:05 Dose: 50 mcg Documented By: PODMORP Zolpidem Tartrate (Zolpidem Tartrate 5 Mg Tablet) 5 mg PO BEDTIME [facility] Last Admin: 05/28/23 20:51 Dose: 5 mg Documented By: TERRI Labs 05/28/23 06:13 05/28/23 06:13 Labs: Laboratory Results - last 24 hr 05/28/23 06:13 MCV 92.9 MCH 32.9 MCHC 35.4 RDW 16.0 Plt Count TNP MPV 13.0 H Immature Gran % (Auto) 1.6 H Neut % (Auto) 69.0 Lymph % (Auto) 16.5 L [place] % (Auto) 8.9 Eos % (Auto) 3.2 Baso % (Auto) 0.8 Lymph # (Auto) 0.8 L [place]ent # (Auto) 0.4 Eos # (Auto) 0.2 Baso # (Auto) 0.0 Abs Immat Gran (auto) 0.08 H Absolute Neuts (auto) 3.4 Absolute Nucleated RBC 0.100 H Nucleated RBC % (auto) 2.0 H Smear Tech's Comments VERIFIED Total Bilirubin 0.4 Direct Bilirubin 0.1 AST 48 H ALT 51 H Alkaline Phosphatase 68 Total Protein 5.1 L Albumin 2.1 L Microbiology Microbiology Results: Microbiology 05/27/23 07:27 Blood Culture - Preliminary Blood - Venous No growth after 48 hours. 05/27/23 07:15 Blood Culture - Preliminary Blood - Venous No growth after 48 hours. 05/27/23 Unknown Urine Culture - Final Urine Catheterized - Jackson Catheter No growth. 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 He has been suficiently hydrated, he remains generally very weak and will need extensive therapy to get back on his feet Acute kidney injury, Likely secondary to poor p.o. intake and use of HCTZ. Resolved Fall d/t weakness. Fall precaution. PT recommends STR, he is agreeable Syncope on presentation--likely related to low BP, no able to stand for orthostatic. BP is better with IVF, no arrythmia noted. Seen by cardiology not believed to be acute cardiac issues but recommendsed changing to atenolol to metoprolol Leukocytosis and hypOtension, improving after IV fluids. Leukocytosis d/t steroid--resolved. UTI/fever/has jackson--started on Ceftriaxone for 7 to 10 days, follow urine culture so far no growth but responding to Abx Elevated transaminases. Likely due to liver mets and hepatic steatosis. Continue to monitor. HTN. Initially hypotensive but BP within normal and to continue Metoprolo and Captopril Tinea cruris with extensive perineal involvment, and under skin fold, buttuc escoriation d/t lack of mobilitycontinue barrier topical option, wound care follow, jackson to keep skin integrity intact event with all these measures, it remains very challenging to keep skin from breaking d/t his size and minimal mobility, will continue to use all precaution and treatment, will get surgery wound surgery to see for further recommendation Obstructive sleep apnea, not on cpap Diarrhea, negative C dif, seems resolved History of CHF. No symptoms reported. Cancer--following by Oncology, future chemotherapy deferred per Dr. Beck not for the next 2 weeks at least Morbid obesity. BMI 39.6 kg/m2. Weight loss advised DVT prophylaxis: Heparin subQ Code status: Full Need for inpatient: JOHN, weakness, related to dehydration, renal failure in setting of chemo, being hydrated with IVF At this point he is medically clear for discharge. Encourage to PT eval recommends STR Quality Stroke Does the patient have a stroke diagnosis?: No VTE Prior VTE?: No VTE Risk Level:: Medical - moderate - high VTE Device Contraindication: N/A - Device Ordered VTE Drug Contraindication: N/A - Med Ordered
[2023-05-29 11:12] VITALS: BP 114/60; PULSE 93; RESP 18; TEMP 36.1; O2SAT 98
[2023-05-29] MEDS: Morphine Sulfate 2 MG/ML CARTRIDGE IVPUSH ×2 (15:14→21:34)
[2023-05-29 15:24] VITALS: BP 125/66; PULSE 92; RESP 18; TEMP 36.2; O2SAT 95
[2023-05-29] MEDS: 0.9 % Sodium Chloride Flush 3 ML SYRINGE IVFLUSH ×3 (17:29→20:18)
[2023-05-29 19:06] VITALS: BP 105/55; PULSE 91; RESP 18; TEMP 36.4; O2SAT 95
[2023-05-29] MEDS: Zolpidem Tartrate 5 MG TABLET PO (20:15)
[2023-05-29 23:14] VITALS: BP 99/58; PULSE 97; RESP 20; TEMP 36.3; O2SAT 95
[2023-05-30] MEDS: Heparin Sodium,Porcine 5,000 UNIT/ML VIAL 5000 UNIT SUBCUT ×3 (01:28→16:29)
[2023-05-30 03:29] VITALS: BP 105/55; PULSE 75; RESP 20; TEMP 36.1; O2SAT 94
[2023-05-30 07:16] VITALS: BP 124/77; PULSE 84; RESP 18; TEMP 36.2; O2SAT 94
[2023-05-30] MEDS: cefTRIAXone sodium 1 GM in 0.9 % Sodium Chloride 50 ML IV (08:51)
[2023-05-30] MEDS: 0.9 % Sodium Chloride Flush 3 ML SYRINGE IVFLUSH ×2 (08:51→16:38)
[2023-05-30] MEDS: Nystatin Oral Susp 500,000 UNIT/5 ML ORAL.SUSP 200000 UNIT BUCCAL ×4 (08:53→20:39)
[2023-05-30] MEDS: Gabapentin 300 MG CAPSULE PO ×3 (08:54→20:39)
[2023-05-30] MEDS: captopriL 25 MG TABLET PO ×2 (08:54→20:38)
[2023-05-30] MEDS: Ascorbic Acid 500 MG TABLET 1000 MG PO ×2 (08:54→20:38)
[2023-05-30] MEDS: Metoprolol Tartrate 50 MG TABLET PO ×2 (08:54→20:39)
[2023-05-30] MEDS: Sertraline HCL 50 MG TABLET PO (08:54)
[2023-05-30] MEDS: Cyclobenzaprine HCl 10 MG TABLET PO ×3 (08:54→20:39)
[2023-05-30] MEDS: Cholecalciferol (Vitamin D3) 25 MCG TABLET 50 MCG PO ×2 (08:54→20:38)
[2023-05-30] MEDS: Nystatin/Triamcinolone Cream 15 GM TUBE 1 APPL TOPICAL ×2 (08:56→20:47)
[2023-05-30] MEDS: Nystatin Powder 15 GM BOTTLE 1 APPL TOPICAL (08:57)
--- NOTE | 2023-05-30 09:00 | HO.PM.IMPN ---
Subjective Subjective Date of Service: 05/31/23 Interval History: He says he feels better, and is not reporting any new symptoms, vitals stable, pain is controlled. Physical Exam Vital Signs: Vital Signs: Last Vital Signs Temp 97.1 F 05/30/23 07:16 Pulse 84 05/30/23 07:16 Resp 18 05/30/23 07:16 BP 124/77 05/30/23 07:16 Pulse Ox 94 05/30/23 07:16 O2 Del Method Nasal Cannula 05/30/23 07:16 O2 Flow Rate 3 05/30/23 07:16 BMI result Body Mass Index 39.6 Objective Data Active Medications Acetaminophen (Acetaminophen 325 Mg Tablet) 650 mg PO Q6H PRN PRN Reason: Pain, Mild (Pain Scale 1-3) Last Admin: 05/28/23 20:52 Dose: 650 mg Documented By: KIKI-RIVLA Ascorbic Acid (Ascorbic Acid 500 Mg Tablet) 1,000 mg PO BID [facility] Last Admin: 05/29/23 20:13 Dose: 1,000 mg Documented By: SIMI Captopril (Captopril 25 Mg Tablet) 25 mg PO BID [facility]; Protocol Last Admin: 05/29/23 20:15 Dose: 25 mg Documented By: SIMI Cyclobenzaprine HCl (Cyclobenzaprine Hcl 10 Mg Tablet) 10 mg PO TID [facility] Last Admin: 05/29/23 20:14 Dose: 10 mg Documented By: SIMI Gabapentin (Gabapentin 300 Mg Capsule) 300 mg PO TID [facility] Last Admin: 05/29/23 20:15 Dose: 300 mg Documented By: SIMI Heparin Sodium (Porcine) (Heparin Sodium,Porcine 5,000 Unit/Ml Vial) 5,000 unit SUBCUT Q8H [facility] Last Admin: 05/30/23 01:28 Dose: 5,000 unit Documented By: SIMI Ceftriaxone Sodium 1 gm/ (Sodium Chloride) 50 mls @ 100 mls/hr IV Q24H [facility] Last Infusion: 05/29/23 10:31 Dose: Infused Documented By: PODMORP Metoprolol Tartrate (Metoprolol Tartrate 50 Mg Tablet) 50 mg PO BID [facility]; Protocol Last Admin: 05/29/23 20:12 Dose: 50 mg Documented By: SIMI Morphine Sulfate (Morphine Sulfate 2 Mg/Ml Cartridge) 2 mg IVPUSH Q6H PRN; Protocol PRN Reason: Pain, Severe (Pain Scale 7-10) Last Admin: 05/29/23 21:34 Dose: 2 mg Documented By: SIMI Nystatin (Nystatin Powder 15 Gm Bottle) 1 appl TOPICAL BID [facility]; Protocol Last Admin: 05/29/23 20:20 Dose: 1 appl Documented By: SIMI Nystatin (Nystatin Oral Susp 500,000 Unit/5 Ml Oral.Susp) 200,000 unit BUCCAL QID [facility]; Protocol Last Admin: 05/29/23 20:12 Dose: 200,000 unit Documented By: SIMI Nystatin/Triamcinolone Acetonide (Nystatin/Triamcinolone Cream 15 Gm Tube) 1 appl TOPICAL BID [facility] Last Admin: 05/29/23 20:20 Dose: 1 appl Documented By: SIMI Ondansetron HCl (Ondansetron Hcl 4 Mg/2 Ml Vial) 4 mg IVPUSH Q8H PRN PRN Reason: Nausea Last Admin: 05/28/23 20:53 Dose: 4 mg Documented By: KIKI-RIVBERNARD Sertraline HCl (Sertraline Hcl 50 Mg Tablet) 50 mg PO DAILY [facility] Last Admin: 05/29/23 10:08 Dose: 50 mg Documented By: PODMORP Sodium Chloride (0.9 % Sodium Chloride Flush 3 Ml Syringe) 3 ml IVFLUSH QSHIFT [facility] Last Admin: 05/29/23 20:18 Dose: 3 ml Documented By: SIIM Vitamin D (Cholecalciferol (Vitamin D3) 25 Mcg Tablet) 50 mcg PO BID [facility] Last Admin: 05/29/23 20:14 Dose: 50 mcg Documented By: SIMI Zinc Oxide (Zinc Oxide 20% Ointment 28.35 Gm Tube) 1 appl TOPICAL BID PRN; Protocol PRN Reason: Diaper Rash Labs 05/30/23 08:51 05/30/23 08:51 Microbiology Microbiology Results: Microbiology 05/27/23 07:27 Blood Culture - Preliminary Blood - Venous No growth after 48 hours. 05/27/23 07:15 Blood Culture - Preliminary Blood - Venous No growth after 48 hours. 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 He has been suficiently hydrated, he remains generally very weak and will need extensive therapy to get back on his feet Acute kidney injury, Likely secondary to poor p.o. intake and use of HCTZ. Resolved Fall d/t weakness. Fall precaution. PT recommends STR, he is agreeable Syncope on presentation--likely related to low BP, no able to stand for orthostatic. BP is better with IVF, no arrythmia noted. Seen by cardiology not believed to be acute cardiac issues but recommendsed changing to atenolol to metoprolol Leukocytosis and hypOtension, improving after IV fluids. Leukocytosis d/t steroid--resolved. UTI/fever/has jackson--started on Ceftriaxone for 7 to 10 days, follow urine culture so far no growth but responding to Abx Elevated transaminases. Likely due to liver mets and hepatic steatosis. Trending down. Continue to monitor. HTN. Initially hypOtensive but BP within normal and to continue Metoprolo and Captopril Tinea cruris with extensive perineal involvment, and under skin fold, buttuc escoriation d/t lack of mobilitycontinue barrier topical option, wound care follow, jackson to keep skin integrity intact event with all these measures, it remains very challenging to keep skin from breaking d/t his size and minimal mobility, will continue to use all precaution and treatment, will get surgery wound surgery to see for further recommendation Obstructive sleep apnea, not on cpap Diarrhea, negative C dif, seems resolved History of CHF. No symptoms reported. Cancer--following by Oncology, future chemotherapy deferred per Dr. Beck not for the next 2 weeks at least Morbid obesity. BMI 39.6 kg/m2. Weight loss advised DVT prophylaxis: Heparin subQ Code status: Full Need for inpatient: JOHN, weakness, related to dehydration, renal failure in setting of chemo, being hydrated with IVF At this point he is medically clear for discharge. Encourage to PT eval recommends STR Quality Stroke Does the patient have a stroke diagnosis?: No VTE Prior VTE?: No VTE Risk Level:: Medical - moderate - high VTE Device Contraindication: N/A - Device Ordered VTE Drug Contraindication: N/A - Med Ordered
[2023-05-30 09:10] LABS: Hemoglobin 10.8 g/dl (14.0-18.0); PLT CLUMP 1; Red Cell Distribution Width 16.1 % (11.0-16.0)
[2023-05-30 09:12] LABS: Hematocrit 32.1 % (42.0-52.0); Mean Corpuscular HGB Conc 33.6 g/dl (31.0-36.0); Mean Corpuscular Hemoglobin 31.9 pg (27.0-33.0); Mean Corpuscular Volume 94.7 fL (80.0-98.0); Mean Platelet Volume 10.7 fL (9.4-12.4); Red Blood Count 3.39 X10*6/uL (4.60-5.80)
[2023-05-30 09:15] LABS: Platelet Count 139 X10*3/uL (160-400); White Blood Count 5.9 X10*3/uL (4.8-10.8)
[2023-05-30 11:07] VITALS: BP 130/60; PULSE 73; RESP 20; TEMP 36.2; O2SAT 94
[2023-05-30 12:17] LABS: Anion Gap 8 (12-20); Blood Urea Nitrogen 12 mg/dL (9-16); Calcium 8.6 mg/dL (8.4-10.2); Carbon Dioxide 29 mmol/L (22-29); Chloride 100 mmol/L (96-108); Estimated Glomerular Filt Rate > 60; Glucose Random 131 mg/dL (60-115); Potassium 4.2 mmol/L (3.3-5.1); Sodium 133 mmol/L (135-145)
[2023-05-30] MEDS: Morphine Sulfate 2 MG/ML CARTRIDGE IVPUSH (13:28)
--- NOTE | 2023-05-30 14:12 | PM.PNGS ---
Subjective Subjective Date of Service: 05/30/23 Interval history: Patient is feeling okay says the rash areas improved but still bothersome. He wants to go home Physical Exam Vital Signs: Vital Signs: Last Vital Signs Temp 97.1 F 05/30/23 11:07 Pulse 73 05/30/23 11:07 Resp 20 05/30/23 11:07 BP 130/60 05/30/23 11:07 Pulse Ox 94 05/30/23 11:07 O2 Del Method Nasal Cannula 05/30/23 11:07 O2 Flow Rate 3 05/30/23 11:07 BMI result Body Mass Index 39.6 Skin: Other: Patient has erythematous rash which actually looks better in the groin area and scrotal area. It is tender also. There are areas that are weeping clear fluid Objective Data Active Medications Acetaminophen (Acetaminophen 325 Mg Tablet) 650 mg PO Q6H PRN PRN Reason: Pain, Mild (Pain Scale 1-3) Last Admin: 05/28/23 20:52 Dose: 650 mg Documented By: TERRI Ascorbic Acid (Ascorbic Acid 500 Mg Tablet) 1,000 mg PO BID [facility] Last Admin: 05/30/23 08:54 Dose: 1,000 mg Documented By: ALISON Captopril (Captopril 25 Mg Tablet) 25 mg PO BID [facility]; Protocol Last Admin: 05/30/23 08:54 Dose: 25 mg Documented By: ALISON Cyclobenzaprine HCl (Cyclobenzaprine Hcl 10 Mg Tablet) 10 mg PO TID [facility] Last Admin: 05/30/23 13:28 Dose: 10 mg Documented By: ALISON Gabapentin (Gabapentin 300 Mg Capsule) 300 mg PO TID [facility] Last Admin: 05/30/23 13:28 Dose: 300 mg Documented By: ALISON Heparin Sodium (Porcine) (Heparin Sodium,Porcine 5,000 Unit/Ml Vial) 5,000 unit SUBCUT Q8H [facility] Last Admin: 05/30/23 08:54 Dose: 5,000 unit Documented By: ALISON Ceftriaxone Sodium 1 gm/ (Sodium Chloride) 50 mls @ 100 mls/hr IV Q24H [facility] Last Infusion: 05/30/23 09:25 Dose: Infused Documented By: ALISON Metoprolol Tartrate (Metoprolol Tartrate 50 Mg Tablet) 50 mg PO BID [facility]; Protocol Last Admin: 05/30/23 08:54 Dose: 50 mg Documented By: ALISON Morphine Sulfate (Morphine Sulfate 2 Mg/Ml Cartridge) 2 mg IVPUSH Q6H PRN; Protocol PRN Reason: Pain, Severe (Pain Scale 7-10) Last Admin: 05/30/23 13:28 Dose: 2 mg Documented By: ALISON Nystatin (Nystatin Powder 15 Gm Bottle) 1 appl TOPICAL BID [facility]; Protocol Last Admin: 05/30/23 08:57 Dose: 1 appl Documented By: ALISON Nystatin (Nystatin Oral Susp 500,000 Unit/5 Ml Oral.Susp) 200,000 unit BUCCAL QID [facility]; Protocol Last Admin: 05/30/23 12:11 Dose: 200,000 unit Documented By: ALISON Nystatin/Triamcinolone Acetonide (Nystatin/Triamcinolone Cream 15 Gm Tube) 1 appl TOPICAL BID [facility] Last Admin: 05/30/23 08:56 Dose: 1 appl Documented By: ALISON Ondansetron HCl (Ondansetron Hcl 4 Mg/2 Ml Vial) 4 mg IVPUSH Q8H PRN PRN Reason: Nausea Last Admin: 05/28/23 20:53 Dose: 4 mg Documented By: TERRI Sertraline HCl (Sertraline Hcl 50 Mg Tablet) 50 mg PO DAILY [facility] Last Admin: 05/30/23 08:54 Dose: 50 mg Documented By: ALISON Sodium Chloride (0.9 % Sodium Chloride Flush 3 Ml Syringe) 3 ml IVFLUSH QSHIFT [facility] Last Admin: 05/30/23 08:51 Dose: 3 ml Documented By: ALISON Vitamin D (Cholecalciferol (Vitamin D3) 25 Mcg Tablet) 50 mcg PO BID [facility] Last Admin: 05/30/23 08:54 Dose: 50 mcg Documented By: ALISON Zinc Oxide (Zinc Oxide 20% Ointment 28.35 Gm Tube) 1 appl TOPICAL BID PRN; Protocol PRN Reason: Diaper Rash Labs 05/30/23 08:51 05/30/23 08:51 Labs: Laboratory Results - last 24 hr 05/30/23 08:51 MCV 94.7 MCH 31.9 MCHC 33.6 RDW 16.1 H Plt Count 139 L MPV 10.7 Absolute Nucleated RBC 0.000 Nucleated RBC % (auto) 0.0 Anion Gap 8 L Estim Creat Clear Calc 119.0 Estimated GFR > 60 Random Glucose 131 H Calcium 8.6 Procedures Date of Service Date of Service: 05/30/23 Progress Note: A&P Assessment and plan (1) Candidiasis of genitalia: Status: Acute Assessment and Plan: Continue with recommended wound care. P.o. antifungal medication as needed as well as topical. Mix antifungal cream with zinc oxide 20% barrier cream and apply in the areas. Clean often reapply once and then p.r.n. daily. Patient would benefit from using InterDry if we have it to line the creases to wick away moisture. No need for any surgical intervention debridement etc. at this point. Time Spent With Patient Time: Total time managing care of this patient today ____ minutes. Quality Stroke Does the patient have a stroke diagnosis?: No VTE Prior VTE?: No VTE Risk Level:: Medical - moderate - high VTE Device Contraindication: N/A - Device Ordered VTE Drug Contraindication: N/A - Med Ordered
[2023-05-30 15:19] VITALS: BP 121/61; PULSE 82; RESP 18; TEMP 36.2; O2SAT 95
[2023-05-30 20:00] VITALS: BP 124/78; PULSE 98; RESP 20; TEMP 36.3; O2SAT 95
[2023-05-30] MEDS: Zinc Oxide 20% Ointment 28.35 GM TUBE 1 APPL TOPICAL (20:48)
[2023-05-31] VITALS (7 sets, daily range): BP systolic 118–146; BP diastolic 57–91; PULSE 64–94; RESP 18–20; TEMP 36.1–36.8; O2SAT 93–99
--- NOTE | 2023-05-31 | ECG_ITS ---
Test Reason : diflucan Blood Pressure : / mmHG Vent. Rate : 083 BPM Atrial Rate : 083 BPM P-R Int : 158 ms QRS Dur : 140 ms QT Int : 384 ms P-R-T Axes : 036 -30 055 degrees QTc Int : 451 ms Normal sinus rhythm Left axis deviation Non-specific intra-ventricular conduction block T wave abnormality, consider anterolateral ischemia Abnormal ECG When compared with ECG of 23-MAY-2023 19:37, T wave inversion more evident in Lateral leads Referred By: Alirio Toscano Electronically Signed By:SONA MEYER MD
[2023-05-31] MEDS: Morphine Sulfate 2 MG/ML CARTRIDGE IVPUSH ×2 (01:04→17:01)
[2023-05-31] MEDS: 0.9 % Sodium Chloride Flush 3 ML SYRINGE IVFLUSH ×4 (01:08→20:24)
[2023-05-31] MEDS: Nystatin Powder 15 GM BOTTLE 1 APPL TOPICAL ×3 (01:09→20:23)
[2023-05-31] MEDS: oxyCODONE HCl Immed Release 5 MG TABLET 10 MG PO (02:40)
[2023-05-31] MEDS: Sertraline HCL 50 MG TABLET PO (09:46)
[2023-05-31] MEDS: Metoprolol Tartrate 50 MG TABLET PO ×2 (09:46→20:18)
[2023-05-31] MEDS: Cholecalciferol (Vitamin D3) 25 MCG TABLET 50 MCG PO ×2 (09:46→20:17)
[2023-05-31] MEDS: Cyclobenzaprine HCl 10 MG TABLET PO ×3 (09:47→20:18)
[2023-05-31] MEDS: Gabapentin 300 MG CAPSULE PO ×3 (09:47→20:34)
[2023-05-31] MEDS: Heparin Sodium,Porcine 5,000 UNIT/ML VIAL 5000 UNIT SUBCUT ×2 (09:47→17:22)
[2023-05-31] MEDS: cefTRIAXone sodium 1 GM in 0.9 % Sodium Chloride 50 ML IV (09:48)
[2023-05-31] MEDS: Ascorbic Acid 500 MG TABLET 1000 MG PO ×2 (09:52→20:17)
[2023-05-31] MEDS: captopriL 25 MG TABLET PO ×2 (09:53→20:18)
[2023-05-31] MEDS: Nystatin Oral Susp 500,000 UNIT/5 ML ORAL.SUSP 200000 UNIT BUCCAL ×4 (09:53→20:17)
--- NOTE | 2023-05-31 10:49 | MHC.CM.PN ---
CM went to see pt to discuss his transfer to [facility], pt said he cannot go any place today because he is in too much pain to be moved. CM let the provider know this. Update sent to [facility].
[2023-05-31] MEDS: Zinc Oxide 20% Ointment 28.35 GM TUBE 1 APPL TOPICAL ×2 (13:46→20:24)
[2023-05-31] MEDS: Nystatin/Triamcinolone Cream 15 GM TUBE 1 APPL TOPICAL ×2 (13:47→20:24)
--- NOTE | 2023-05-31 16:03 | P.PNIM_ITS ---
Subjective Subjective Date of Service: 07/10/23 Interval History: He says he feels better, and is not reporting any new symptoms, vitals stable, pain is controlled. Skin remains pretty raw in the perineal area and buttocks area Physical Exam 2 Vital Signs: Vital Signs: Last Vital Signs Temp 98.3 F 05/31/23 15:33 Pulse 86 05/31/23 15:33 Resp 20 05/31/23 15:33 BP 125/69 05/31/23 15:33 Pulse Ox 98 05/31/23 15:33 O2 Del Method Nasal Cannula 05/31/23 15:33 O2 Flow Rate 4 05/31/23 15:33 BMI result Body Mass Index 39.6 Objective Data Active Medications Acetaminophen (Acetaminophen 325 Mg Tablet) 650 mg PO Q6H PRN PRN Reason: Pain, Mild (Pain Scale 1-3) Last Admin: 05/28/23 20:52 Dose: 650 mg Documented By: TERRI Ascorbic Acid (Ascorbic Acid 500 Mg Tablet) 1,000 mg PO BID [facility] Last Admin: 05/31/23 09:52 Dose: 1,000 mg Documented By: MATTI Captopril (Captopril 25 Mg Tablet) 25 mg PO BID [facility]; Protocol Last Admin: 05/31/23 09:53 Dose: 25 mg Documented By: MATTI Cyclobenzaprine HCl (Cyclobenzaprine Hcl 10 Mg Tablet) 10 mg PO TID [facility] Last Admin: 05/31/23 14:03 Dose: 10 mg Documented By: MATTI Gabapentin (Gabapentin 300 Mg Capsule) 300 mg PO TID [facility] Last Admin: 05/31/23 14:04 Dose: 300 mg Documented By: MATTI Heparin Sodium (Porcine) (Heparin Sodium,Porcine 5,000 Unit/Ml Vial) 5,000 unit SUBCUT Q8H [facility] Last Admin: 05/31/23 09:47 Dose: 5,000 unit Documented By: MATTI Ceftriaxone Sodium 1 gm/ (Sodium Chloride) 50 mls @ 100 mls/hr IV Q24H [facility] Last Infusion: 05/31/23 13:29 Dose: Infused Documented By: MATTI Metoprolol Tartrate (Metoprolol Tartrate 50 Mg Tablet) 50 mg PO BID [facility]; Protocol Last Admin: 05/31/23 09:46 Dose: 50 mg Documented By: MATTI Morphine Sulfate (Morphine Sulfate 2 Mg/Ml Cartridge) 2 mg IVPUSH Q6H PRN; Protocol PRN Reason: Pain, Severe (Pain Scale 7-10) Last Admin: 05/31/23 01:04 Dose: 2 mg Documented By: MYLES Nystatin (Nystatin Powder 15 Gm Bottle) 1 appl TOPICAL BID [facility]; Protocol Last Admin: 05/31/23 13:45 Dose: 1 appl Documented By: MATTI Nystatin (Nystatin Oral Susp 500,000 Unit/5 Ml Oral.Susp) 200,000 unit BUCCAL QID [facility]; Protocol Last Admin: 05/31/23 14:03 Dose: 200,000 unit Documented By: MATTI Nystatin/Triamcinolone Acetonide (Nystatin/Triamcinolone Cream 15 Gm Tube) 1 appl TOPICAL BID [facility] Last Admin: 05/31/23 13:47 Dose: 1 appl Documented By: MATTI Ondansetron HCl (Ondansetron Hcl 4 Mg/2 Ml Vial) 4 mg IVPUSH Q8H PRN PRN Reason: Nausea Last Admin: 05/28/23 20:53 Dose: 4 mg Documented By: TERRI Sertraline HCl (Sertraline Hcl 50 Mg Tablet) 50 mg PO DAILY [facility] Last Admin: 05/31/23 09:46 Dose: 50 mg Documented By: MATTI Sodium Chloride (0.9 % Sodium Chloride Flush 3 Ml Syringe) 3 ml IVFLUSH [facility] Last Admin: 05/31/23 09:48 Dose: 3 ml Documented By: MATTI Vitamin D (Cholecalciferol (Vitamin D3) 25 Mcg Tablet) 50 mcg PO BID [facility] Last Admin: 05/31/23 09:46 Dose: 50 mcg Documented By: MATTI Zinc Oxide (Zinc Oxide 20% Ointment 28.35 Gm Tube) 1 appl TOPICAL BID PRN; Protocol PRN Reason: Diaper Rash Last Admin: 05/31/23 13:46 Dose: 1 appl Documented By: MATTI Labs 05/30/23 08:51 05/30/23 08:51 Labs: Laboratory Results - last 24 hr 05/28/23 06:13 Smear Path Review Assessment and Plan (1) Multiple falls: Status: Acute (2) Hypertension: Status: Acute (3) Syncope: Status: Acute Plan 72 years old man with past medical history significant for 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 He has been suficiently hydrated, he remains generally very weak and will need extensive therapy to get back on his feet Acute kidney injury, Likely secondary to poor p.o. intake and use of HCTZ. Resolved Fall d/t weakness. Fall precaution. PT recommends STR, he is agreeable Syncope on presentation--likely related to low BP, no able to stand for orthostatic. BP is better with IVF, no arrythmia noted. Seen by cardiology not believed to be acute cardiac issues but recommendsed changing to atenolol to metoprolol Leukocytosis and hypOtension, improving after IV fluids. Leukocytosis d/t steroid--resolved. UTI/fever/has jackson--started on Ceftriaxone for 7 to 10 days, follow urine culture so far no growth but responding to Abx Elevated transaminases. Likely due to liver mets and hepatic steatosis. Trending down. Continue to monitor. HTN. Initially hypOtensive but BP within normal and to continue Metoprolo and Captopril Tinea cruris with extensive perineal involvment, and under skin fold, buttuc escoriation d/t lack of mobilitycontinue barrier topical option, wound care follow, jackson to keep skin integrity intact event with all these measures, it remains very challenging to keep skin from breaking d/t his size and minimal mobility, will continue to use all precaution and treatment, will get surgery wound surgery recommends no intervention. Adding oral Diflucan, and get ID input, keep area dry, frequent change in position. Obstructive sleep apnea, not on cpap Diarrhea, negative C dif, seems resolved History of CHF. No symptoms reported. Cancer--following by Oncology, future chemotherapy deferred per Dr. Beck not for the next 2 weeks at least Morbid obesity. BMI 39.6 kg/m2. Weight loss advised DVT prophylaxis: Heparin subQ Code status: Full Need for inpatient: JOHN, weakness, related to dehydration, renal failure in setting of chemo, being hydrated with IVF At this point he is medically clear for discharge. Encourage to PT eval recommends STR Plan of care was discussed with patient's at the bedside today, patient is reluctant to go rehab Quality Stroke Does the patient have a stroke diagnosis?: No VTE Prior VTE?: No VTE Risk Level:: Medical - moderate - high VTE Device Contraindication: N/A - Device Ordered VTE Drug Contraindication: N/A - Med Ordered
[2023-05-31] MEDS: Acetaminophen 325 MG TABLET 650 MG PO (17:07)
[2023-05-31] MEDS: Fluconazole 150 MG TABLET PO (19:04)
[2023-06-01] VITALS (11 sets, daily range): BP systolic 110–169; BP diastolic 59–88; PULSE 73–101; RESP 16–20; TEMP 36.3–36.8; O2SAT 95–97
[2023-06-01] MEDS: Morphine Sulfate 2 MG/ML CARTRIDGE IVPUSH ×3 (00:48→22:44)
[2023-06-01] MEDS: Heparin Sodium,Porcine 5,000 UNIT/ML VIAL 5000 UNIT SUBCUT ×3 (02:50→18:15)
[2023-06-01] MEDS: HYDROmorphone HCl 0.5 MG/0.5 ML SYRINGE IVPUSH (04:32)
[2023-06-01] MEDS: 0.9 % Sodium Chloride Flush 3 ML SYRINGE IVFLUSH ×2 (07:48→18:15)
[2023-06-01] MEDS: cefTRIAXone sodium 1 GM in 0.9 % Sodium Chloride 50 ML IV (07:49)
[2023-06-01] MEDS: Nystatin Oral Susp 500,000 UNIT/5 ML ORAL.SUSP 200000 UNIT BUCCAL ×4 (07:51→21:49)
[2023-06-01] MEDS: Ascorbic Acid 500 MG TABLET 1000 MG PO ×2 (07:51→21:51)
[2023-06-01] MEDS: Sertraline HCL 50 MG TABLET PO (07:52)
[2023-06-01] MEDS: Cyclobenzaprine HCl 10 MG TABLET PO ×3 (07:52→21:52)
[2023-06-01] MEDS: captopriL 25 MG TABLET PO ×2 (07:52→21:50)
[2023-06-01] MEDS: Cholecalciferol (Vitamin D3) 25 MCG TABLET 50 MCG PO ×2 (07:52→21:51)
[2023-06-01] MEDS: Gabapentin 300 MG CAPSULE PO ×3 (07:52→21:50)
[2023-06-01] MEDS: Metoprolol Tartrate 50 MG TABLET PO ×2 (07:52→21:52)
[2023-06-01] MEDS: oxyCODONE HCl Immed Release 5 MG TABLET 10 MG PO ×3 (09:56→21:50)
[2023-06-01] MEDS: Nystatin Powder 15 GM BOTTLE 1 APPL TOPICAL (09:58)
[2023-06-01] MEDS: Nystatin/Triamcinolone Cream 15 GM TUBE 1 APPL TOPICAL (09:58)
--- NOTE | 2023-06-01 11:35 | HO.WOUND ---
Wound Consult: Follow up 72yr old? admitted to [facility] on 05/24/23 - See progress notes and H&P for detailed history.? Wound consult follow up for Right Breast - abdominal skin fold, scrotum and bilateral groin.? Discussed with direct care nurse - Provider placed consult for Interdry request - Interdry available on unit and at the bedside and in place per discussion with direct care nurse. Direct care nurse reports patients skin remains denuded and at times remains resistant to care but over all s/s of improvement. Will follow up towards end of week if patient remains inpatient. Continue with current topical recommendations in addition to Interdry to skin folds. Recommendations: 1. Turn and Reposition every 2 hours and as needed for patient comfort.? Use pillows or wedges to support off loading positions. 2. Off Load all bony prominences with use of pillows and heel boots if needed.? Apply Preventative foams where needed. ? 3. Monitor for incontinence and moisture control, use barrier creams when needed for prevention and treatment. 4. Provide adequate and supplemental nutrition.? 5. Order Bariatric low air loss mattress. 6. When applicable maintain blood glucose levels per Providers order. 7. Heels - Elevate heels off of surface of bed - apply preventative foams peel back and assess Q shift and change every 3 days. 8. Right Breast - Cleanse with Ph balance soap, dry thoroughly. Apply Triad to base of skin fold. Apply twice daily. 9. Left Abdominal Skin Fold, Bilateral Groin and Scrotum - Cleanse thoroughly with Ph balanced wipes, dry well with ABD pad. Gently apply antifungal per provider orders. Apply thin layer of Triad to wound bed - only pat and dab no scrub and rub when soiling occurs. Reapply thin layer PRN and twice daily. Re-consult wound care Nurse for wound deterioration or wound changes.
--- NOTE | 2023-06-01 12:25 | MHC.CM.PN ---
Fellow CM received a call from Patient's who stated that she visited [facility] and does not feel that they can meet Patients needs; when this CM met with Patient, he agreed. Per Patient/family's request, CM extended the SNF search and after texting Patient's Oncologist,and learned that chemo would not be done while Patient is in [facility],2 additional SNFs accepted Patient([facility] [place] and [facility] [place]). Patient has chosen [facility]; CM has informed [facility] of the change and [facility]. CM will follow.
--- NOTE | 2023-06-01 14:09 | P.PNIM_ITS ---
Subjective Subjective Date of Service: 06/02/23 Interval History: He says he feels better, and is not reporting any new symptoms, vitals stable, pain is controlled. Review of Systems Skin remains still raw in the perineal area and buttocks area Physical Exam 2 Vital Signs: Vital Signs: Last Vital Signs Temp 98.3 F 06/01/23 10:52 Pulse 73 06/01/23 10:52 Resp 20 06/01/23 10:52 BP 110/60 06/01/23 10:52 Pulse Ox 95 06/01/23 10:52 O2 Del Method Nasal Cannula 06/01/23 10:52 O2 Flow Rate 3 06/01/23 10:52 BMI result Body Mass Index 39.6 General: AO X 3, no acute distress Resp: CTA bilateral CVS: S1,S2,RRR, nonpitting leg edema in both legs GI: +BS, NT, no distention Skin: extensive perineal and abdominal area fungal rash--see wound care pictures Neuro: motor grossly intact Psych: appropriate affect Objective Data Active Medications Acetaminophen (Acetaminophen 325 Mg Tablet) 650 mg PO Q6H PRN PRN Reason: Pain, Mild (Pain Scale 1-3) Last Admin: 05/31/23 17:07 Dose: 650 mg Documented By: MATTI Ascorbic Acid (Ascorbic Acid 500 Mg Tablet) 1,000 mg PO BID [facility] Last Admin: 06/01/23 07:51 Dose: 1,000 mg Documented By: CHRISTINA Captopril (Captopril 25 Mg Tablet) 25 mg PO BID [facility]; Protocol Last Admin: 06/01/23 07:52 Dose: 25 mg Documented By: CHRISTINA Cyclobenzaprine HCl (Cyclobenzaprine Hcl 10 Mg Tablet) 10 mg PO TID [facility] Last Admin: 06/01/23 07:52 Dose: 10 mg Documented By: CHRISTINA Gabapentin (Gabapentin 300 Mg Capsule) 300 mg PO TID [facility] Last Admin: 06/01/23 07:52 Dose: 300 mg Documented By: CHRISTINA Heparin Sodium (Porcine) (Heparin Sodium,Porcine 5,000 Unit/Ml Vial) 5,000 unit SUBCUT Q8H [facility] Last Admin: 06/01/23 07:51 Dose: 5,000 unit Documented By: CHRISTINA Ceftriaxone Sodium 1 gm/ (Sodium Chloride) 50 mls @ 100 mls/hr IV Q24H [facility] Last Infusion: 06/01/23 08:36 Dose: Infused Documented By: CHRISTINA Metoprolol Tartrate (Metoprolol Tartrate 50 Mg Tablet) 50 mg PO BID [facility]; Protocol Last Admin: 06/01/23 07:52 Dose: 50 mg Documented By: CHRISTINA Morphine Sulfate (Morphine Sulfate 2 Mg/Ml Cartridge) 2 mg IVPUSH Q6H PRN; Protocol PRN Reason: Pain, Severe (Pain Scale 7-10) Last Admin: 06/01/23 00:48 Dose: 2 mg Nystatin (Nystatin Powder 15 Gm Bottle) 1 appl TOPICAL BID [facility]; Protocol Last Admin: 06/01/23 09:58 Dose: 1 appl Documented By: CHRISTINA Nystatin (Nystatin Oral Susp 500,000 Unit/5 Ml Oral.Susp) 200,000 unit BUCCAL QID [facility]; Protocol Last Admin: 06/01/23 13:39 Dose: 200,000 unit Documented By: CHRISTINA Nystatin/Triamcinolone Acetonide (Nystatin/Triamcinolone Cream 15 Gm Tube) 1 appl TOPICAL BID [facility] Last Admin: 06/01/23 09:58 Dose: 1 appl Documented By: CHRISTINA Ondansetron HCl (Ondansetron Hcl 4 Mg/2 Ml Vial) 4 mg IVPUSH Q8H PRN PRN Reason: Nausea Last Admin: 05/28/23 20:53 Dose: 4 mg Documented By: KIKI-KING Oxycodone HCl (Oxycodone Hcl Immed Release 5 Mg Tablet) 10 mg PO Q4H PRN PRN Reason: Pain, Mild (Pain Scale 1-3) Last Admin: 06/01/23 13:40 Dose: 10 mg Documented By: CHRISTINA Sertraline HCl (Sertraline Hcl 50 Mg Tablet) 50 mg PO DAILY [facility] Last Admin: 06/01/23 07:52 Dose: 50 mg Documented By: CHRISTINA Sodium Chloride (0.9 % Sodium Chloride Flush 3 Ml Syringe) 3 ml IVFLUSH QSHIFT [facility] Last Admin: 06/01/23 07:48 Dose: 3 ml Documented By: CHRISTINA Vitamin D (Cholecalciferol (Vitamin D3) 25 Mcg Tablet) 50 mcg PO BID [facility] Last Admin: 06/01/23 07:52 Dose: 50 mcg Documented By: CHRISTINA Zinc Oxide (Zinc Oxide 20% Ointment 28.35 Gm Tube) 1 appl TOPICAL BID PRN; Protocol PRN Reason: Diaper Rash Last Admin: 05/31/23 20:24 Dose: 1 appl Documented By: MYLES Labs 05/30/23 08:51 05/30/23 08:51 Microbiology Microbiology Results: Microbiology 05/27/23 07:27 Blood Culture - Final Blood - Venous No growth after 5 days. 05/27/23 07:15 Blood Culture - Final Blood - Venous No growth after 5 days. 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 He has been suficiently hydrated, he remains generally very weak and will need extensive therapy to get back on his feet. Acute kidney injury, Likely secondary to poor p.o. intake and use of HCTZ. Resolved. Syncope on presentation--likely related to low BP, no able to stand for orthostatic. BP is better with IVF, no arrythmia noted. Seen by cardiology not believed to be acute cardiac issues but recommendsed changing to atenolol to metoprolol Leukocytosis and hypOtension, improving after IV fluids. Leukocytosis d/t steroid--resolved. UTI/fever/has jackson--started on Ceftriaxone for 7 to 10 days, follow urine culture so far no growth but responding to Abx Elevated transaminases. Likely due to liver mets and hepatic steatosis. Trending down. Continue to monitor. Tinea cruris with extensive perineal involvment, and under skin fold, buttuc escoriation d/t lack of mobilitycontinue barrier topical option, wound care follow, manuel to keep skin integrity intact event with all these measures, it remains very challenging to keep skin from breaking d/t his size and minimal mobility, will continue to use all precaution and treatment. surgery wound surgery recommends no intervention,also continue couwnd care. seems received oral Diflucan, and get ID input, keep area dry, frequent change in position,turn Obstructive sleep apnea, not on cpap Diarrhea, negative C dif, seems resolved History of CHF. No symptoms reported. Cancer--following by Oncology, needed further decison for chemo visited with oncology -to plan discharge for rehab. Morbid obesity. BMI 39.6 kg/m2. Weight loss advised Need for inpatient: JOHN, weakness, related to dehydration, renal failure in setting of chemo, being hydrated with IVF At this point he is medically clear for discharge. PT eval recommends [facility] Plan of care was discussed with patient's at the bedside today, patient is reluctant to go rehab. DVT prophylaxis: Heparin subQ Ongoing need for hospitlaisation:rehab placement after oncology follow up plan for chemo ,Id eval-for signiifocant skin fungal infection -need Id input . Quality Stroke Does the patient have a stroke diagnosis?: No VTE Prior VTE?: No VTE Risk Level:: Medical - moderate - high VTE Device Contraindication: N/A - Device Ordered VTE Drug Contraindication: N/A - Med Ordered
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
[2023-06-02] MEDS: Nystatin Powder 15 GM BOTTLE 1 APPL TOPICAL ×2 (00:54→09:01)
[2023-06-02] MEDS: Heparin Sodium,Porcine 5,000 UNIT/ML VIAL 5000 UNIT SUBCUT ×2 (01:10→08:56)
[2023-06-02 03:12] VITALS: BP 129/73; PULSE 71; RESP 18; TEMP 37.1; O2SAT 95
--- NOTE | 2023-06-02 06:36 | PC.NURSE ---
Contacted by at start of shift saying they have decided against [facility] and have sided with [facility]. This morning around 0530, called saying they have now decided [facility] in [place]. She asked this nurse to relay this info to day nurse and CM.
[2023-06-02 07:59] VITALS: BP 136/74; PULSE 81; RESP 18; TEMP 36.5; O2SAT 94
[2023-06-02] MEDS: Ascorbic Acid 500 MG TABLET 1000 MG PO (08:50)
[2023-06-02] MEDS: Cholecalciferol (Vitamin D3) 25 MCG TABLET 50 MCG PO (08:51)
[2023-06-02] MEDS: Metoprolol Tartrate 50 MG TABLET PO (08:51)
[2023-06-02] MEDS: 0.9 % Sodium Chloride Flush 3 ML SYRINGE IVFLUSH (08:51)
[2023-06-02] MEDS: Cyclobenzaprine HCl 10 MG TABLET PO (08:51)
[2023-06-02] MEDS: Gabapentin 300 MG CAPSULE PO (08:51)
[2023-06-02] MEDS: Sertraline HCL 50 MG TABLET PO (08:51)
[2023-06-02] MEDS: captopriL 25 MG TABLET PO (08:51)
[2023-06-02] MEDS: Nystatin Oral Susp 500,000 UNIT/5 ML ORAL.SUSP 200000 UNIT BUCCAL ×2 (08:55→13:09)
[2023-06-02] MEDS: cefTRIAXone sodium 1 GM in 0.9 % Sodium Chloride 50 ML IV (08:57)
[2023-06-02] MEDS: Zinc Oxide 20% Ointment 28.35 GM TUBE 1 APPL TOPICAL (09:01)
[2023-06-02] MEDS: Nystatin/Triamcinolone Cream 15 GM TUBE 1 APPL TOPICAL (09:02)
[2023-06-02] MEDS: Fluconazole 100 MG TABLET PO (09:08)
--- NOTE | 2023-06-02 09:17 | MHC.CM.PN ---
Critical access hospital has received auth from [facility] for Patient to change from [facility] to Critical access hospital. CM met with Patient yesterday and addressed IMM(original given to Patient and a copy has been placed on the chart). CM spoke with /HCP at [phone] to inform her of the new/second dc plan. CM spoke with at length; she wanted to change either back to [facility] or accept [facility] previous bed offer. toured [facility] to accept [facility] bed at [facility]).CM explained that Patient/family has the right to appeal the dc and that Patient has been medically cleared for dc to SNF/STR since 05/28/2023(5 days). Ultimately, agreed to the dc plan and informed CM that she wishes to be the one who informs the Patient. is aware.Patient will dc to Critical access hospital today at 11AM, via [facility].
--- NOTE | 2023-06-02 09:35 | P.DS_ITS ---
DS: Providers Provider Date of Service: 06/02/23 Date of admission: 05/24/23 05:23 Date of discharge: 06/02/23 Primary care physician: Alban Abrams MD Consults: 05/24/23 10:16 Consult to Wound Care Routine Reason for consultation: perineal candidiasis 05/24/23 11:33 Consult to Hematology / Oncology Routine Consulting Provider: Shiloh Beck Reason for consultation: colon cancer with met Has provider been notified: Yes 05/24/23 14:45 Consult to Cardiology Routine Consulting Provider: [facility] [facility] Reason for consultation: Syncope Has provider been notified: Yes 05/29/23 16:37 Consult to General Surgery Routine Consulting Provider: [facility] [place] General Surgeons Reason for consultation: extensive skin excoriation, please make further recommendation 05/30/23 14:33 Consult to Wound Care Routine Reason for consultation: can we get inter dry material to place in groin creases etc 05/31/23 16:09 Consult to Infectious Diseases Routine Consulting Provider: [facility] [place] Infectious Disease Reason for consultation: fungal skin infection Has provider been notified: No Attending physician on discharge: Lit Peng Discharging clinician: Lit Peng DS: Diagnosis Discharge Diagnosis (1) Colon cancer: Status: Chronic DS: Summary Hospital Course Hospital Course: admission hpi Chief Complaint: Generalized weakness Jeffery Marcus is a 72 years old man with past medical history significant for 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 Beck), BRANDON, CHF, obesity and hypertension presents to the emergency department complaining of general weakness. He fell today while walking to the bathroom secondary to dizziness. Denied loss of consciousness. Reported left lower quadrant pain. He did not report any headache, shortness on breath, chest pain, palpitations, nausea, vomiting or diarrhea. He reported poor appetite. In the ED, he was found to have low BP. There is no tachycardia or fever. Oxygen saturation dropped to 88% on room air. Currently requiring 2 liters/minute supplemental oxygen via nasal cannula. Blood workup is remarkable for leukocytosis, 19.0, hemoglobin 13.0 and platelet 199. Electrolyte abnormal. BUN and creatinine are increased, 26 and 1.6, respectively. Transaminases. Alk-phos and bilirubin are normal. Troponin is 32.0. EKG showed sinus bradycardia, heart rate bpm without acute ischemia. Abdomen pelvis CT scan showed 1-2 cm calculus in the dependent urinary bladder without hydronephrosis, cholecystitis and fatty liver/cirrhosis changes. ED tx: oxycodone 10 mg PO, NS 1L bolus and nystatin powder. 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 He has been suficiently hydrated, generalised weakness somewhat improving but will need extensive therapy to get back on his feet, seen by Pt- recomended rehab. Acute kidney injury, renal function improved. Likely secondary to poor p.o. intake and use of HCTZ. Resolved. Stopped IV fluids. moniter bmp in rehab in 1 week. Syncope--likely related to low BP, no able to stand for orthostatic. BP is better with IVF, no arrythmia noted. Seen by cardiology not believed to be acute cardiac issues but recommends changing to atenolol to metoprolol. Leukocytosis and hypOtension, improving after IV fluids. Leukocytosis d/t steroid,leucocytosis seems improved. UTI/fever/has jackson--started on Ceftriaxone, follow urine culture: Completed ceftriaxone for 7 days, urine culture negative. Consider trial of voiding and discontinuing Jackson in rehab. Elevated transaminases. Likely due to liver mets and hepatic steatosis. Continue to monitor. Monitor LFTs in 1 week. Tinea cruris with extensive perineal involvment, and under skin fold, continue barrier topical option, wound care follow, jackson to keep skin integrity intact,Wound care consult for further recommendation-please see below - inaddition patient is on topical antifungals ,added po fluconazole 100 mg daily ( end date 06/06/23). skin /wound care: Turn and Reposition every 2 hours and as needed for patient comfort.? Use pillows or wedges to support off loading positions. Off Load all bony prominences with use of pillows and heel boots if needed.? Apply Preventative foams where needed. ? Monitor for incontinence and moisture control, use barrier creams when needed for prevention and treatment. Provide adequate and supplemental nutrition.? Order Bariatric low air loss mattress. When applicable maintain blood glucose levels per Providers order. Heels - Elevate heels off of surface of bed - apply preventative foams peel back and assess Q shift and change every 3 days. Right Breast - Cleanse with Ph balance soap, dry thoroughly. Apply Triad to base of skin fold. Apply twice daily. Left Abdominal Skin Fold, Bilateral Groin and Scrotum - Cleanse thoroughly with Ph balanced wipes, dry well with ABD pad. Gently apply antifungal per provider orders. inaddition surgery recomended :Mix antifungal cream with zinc oxide 20% barrier cream and apply in the areas. Clean often reapply once and then p.r.n. daily. Patient would benefit from using InterDry if we have it to line the creases to wick away moisture. avoid triad . Cancer--following by Oncology, future chemotherapy deferred per Dr. Beck for now ,follow-up with Oncology outpatient. plan: plan: fluconazole 100 mg daily for 4 more says. atenolol changed to metoprolol. competed ceftriaxone for uti.urine cultures negative. Elevated transaminases. Likely due to liver mets and hepatic steatosis. Trending down. moniter lFt's in 1 week. wound care in rehab ,consider surgery followup if needed. Above management discussed with the patient and his in detail length, they both understand and in agreement with the above plan, time spent 50 minute. Time Attestation Total time managing care of this patient today: 50 mintues. Discharge Coordination Time (in mins): 50 min Quality: Safe Use of Opioids Does Pt have an Active Cancer Diagnosis on the Problem List?: Yes Opioid Measure Date for [facility] Report: 05/03/23 Opioid Measure Time for [facility] Report: 09:47 Quality: Stroke Does the patient have a stroke diagnosis?: No Physical Exam Vital Signs: Vital Signs: Last Vital Signs Temp 97.7 F 06/02/23 07:59 Pulse 81 06/02/23 07:59 Resp 18 06/02/23 07:59 BP 136/74 06/02/23 07:59 Pulse Ox 94 06/02/23 07:59 O2 Del Method Nasal Cannula 06/02/23 07:59 O2 Flow Rate 4 06/02/23 07:59 BMI result Body Mass Index 39.6 General: AO X 3, no acute distress Resp: CTA bilateral CVS: S1,S2,RRR, nonpitting leg edema in both legs GI: +BS, NT, no distention Skin: extensive perineal and abdominal area fungal rash--see wound care pictures. Neuro: motor grossly intact Psych: appropriate affect DS: Data Imaging Chest x-ray: Radiologist's impression: ITS Impressions Cervical Spine CT 05/23/23 19:55 IMPRESSION: 1. No evidence of acute intracranial hemorrhage or edematous territorial infarction. 2. Moderate underlying microangiopathy and generalized cerebral volume loss. 3. No evidence of acute fracture or traumatic subluxation of the cervical spine. 4. Moderate multilevel degenerative spondyloarthropathy of the cervical spine. Head CT 05/23/23 19:55 IMPRESSION: 1. No evidence of acute intracranial hemorrhage or edematous territorial infarction. 2. Moderate underlying microangiopathy and generalized cerebral volume loss. 3. No evidence of acute fracture or traumatic subluxation of the cervical spine. 4. Moderate multilevel degenerative spondyloarthropathy of the cervical spine. Abdomen/Pelvis CT 05/23/23 23:50 IMPRESSION: 1. 1 to 2 mm calculus in the dependent urinary bladder. No hydronephrosis. 2. Cholelithiasis. 3. The liver is of heterogeneous diminished attenuation and and irregular in contour. This may be related to fatty infiltration and/or cirrhosis. No definitive focal liver lesions are seen. Fleischner guidelines were followed. Chest X-Ray 05/24/23 05:35 IMPRESSION: Persistent left basilar consolidation and left costophrenic angle blunting. This study was presented today May 24, 2023 for interpretation. Prompt inpatient results provided at this time as requested by referring provider. Venous Duplex 05/24/23 13:10 IMPRESSION: No DVT demonstrated in the right lower extremity. Discharge Plan Discharge Anticipated Discharge Date/Time: 06/02/23 09:11 Patient Disposition: Xfer SNF Discharge Diagnosis: Generalized weakness, JOHN, UTI, perineal skin wound , Referrals: [facility] [Outside] - 1 Week Alban Abrams MD [Primary Care Provider] - 1 Week Rosio Hicks MD [Physician] - 1 Week (follow up outaptient) Discharge Medications: New nystatin 100,000 unit/mL Suspension 200,000 unit buccal QID Qty: 1 0RF Rx Instructions: end date in 06/03/2023 zinc oxide 20 % Ointment 1 appl topical BID PRN (Reason: Diaper Rash) Qty: 1 0RF Protocol: Apply to: Apply to: mix with nystatin cream in 2 zinc oxide 1 nystatin part and apply rasharea nystatin 100,000 unit/gram Powder 1 appl topical BID Qty: 1 0RF Protocol: Apply to: Apply to: affected area oxycodone 5 mg Tablet 10 mg PO BID PRN (Reason: Pain, Mild (Pain Scale 1-3)) Qty: 10 0RF Rx Instructions: use oxycodone before dressing change metoprolol tartrate 50 mg Tablet 50 mg PO BID Qty: 1 0RF Protocol: Hold for SBP/HR < HOLD for SBP < : 90 HOLD for HR < : 60 Continued captopril 25 mg tablet 25 mg PO BID Qty: 180 8RF sertraline 50 mg tablet 50 mg PO DAILY Qty: 90 8RF diphenoxylate-atropine 2.5-0.025 mg tablet 1 tab PO QID PRN (Reason: Diarrhea) Qty: 60 5RF cyclobenzaprine 10 mg tablet 10 mg PO TID Qty: 90 8RF zolpidem 12.5 mg tablet,ext release multiphase 12.5 mg PO BEDTIME Qty: 30 0RF oxycodone-acetaminophen 10-325 mg tablet 1 tab PO Q12H PRN (Reason: pain) Qty: 60 0RF ondansetron 8 mg Tablet,Disintegrating 8 mg PO Q8H PRN (Reason: Nausea And Vomiting) Qty: 60 2RF dexamethasone 4 mg Tablet 4 mg PO BID Qty: 30 3RF Rx Instructions: for 2 days after chemo nystatin 100,000 unit/gram Powder 1 appl TOPICAL TID Qty: 1000 2RF ascorbic acid (vitamin C) [Vitamin C] 500 mg tablet 1,000 mg PO BID gabapentin 300 mg capsule 300 mg PO TID cholecalciferol (vitamin D3) [Vitamin D3] 50 mcg (2,000 unit) tablet 50 mcg PO BID fluconazole [Diflucan] 100 mg tablet 100 mg PO DAILY Qty: 4 0RF clotrimazole-betamethasone 1-0.05 % cream 1 appl topical BID 14 Days Qty: 45 0RF Discontinued atenolol 100 mg tablet 100 mg PO DAILY Qty: 90 3RF minocycline 50 mg capsule 100 mg PO BID Discharge Orders: Discharge Order (Routine); Ordered 06/02/23 Ordered By: Lit Peng Diet: Advance to usual diet Activity on Discharge: As tolerated Stand Alone Forms: Patient Portal Discharge page Care Plan Goals: skin care: Turn and Reposition every 2 hours and as needed for patient comfort.? Use pillows or wedges to support off loading positions. Off Load all bony prominences with use of pillows and heel boots if needed.? Apply Preventative foams where needed. ? Monitor for incontinence and moisture control, use barrier creams when needed for prevention and treatment. Provide adequate and supplemental nutrition.? Order Bariatric low air loss mattress. When applicable maintain blood glucose levels per Providers order. Heels - Elevate heels off of surface of bed - apply preventative foams peel back and assess Q shift and change every 3 days. Right Breast - Cleanse with Ph balance soap, dry thoroughly. Apply Triad to base of skin fold. Apply twice daily. Left Abdominal Skin Fold, Bilateral Groin and Scrotum - Cleanse thoroughly with Ph balanced wipes, dry well with ABD pad. Gently apply antifungal per provider orders. inaddition surgery recomended :Mix antifungal cream with zinc oxide 20% barrier cream and apply in the areas. Clean often reapply once and then p.r.n. daily. Patient would benefit from using InterDry if we have it to line the creases to wick away moisture. avoid triad. Health Concerns: plan: fluconazole 100 mg daily for 4 more says. atenolol changed to metoprolol. competed ceftriaxone for uti.urine cultures negative. Elevated transaminases. Likely due to liver mets and hepatic steatosis. Trending down. moniter lFt's in 1 week. wound care in rehab ,consider surgery followup if needed. Plan of Treatment: as above. Assessment: as above.
[2023-06-02] MEDS: oxyCODONE HCl Immed Release 5 MG TABLET 10 MG PO ×2 (09:54→14:27)
--- NOTE | 2023-06-02 10:52 | MHC.CM.PN ---
CM and MD met with Patient at bedside and addressed all of Patient's questions. Patient and requested a copy of the dc summary, which this CM gave to Patient. Patient read through the entire dc summary and all questions were answered. Per Attending, dc has been moved from 11AM until 2 PM.CM will follow further PRN.
[2023-06-02] MEDS: Morphine Sulfate 2 MG/ML CARTRIDGE IVPUSH (10:53)
[2023-06-02 12:00] VITALS: BP 132/63; PULSE 74; RESP 20; TEMP 36.4; O2SAT 95
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
--- NOTE | 2023-06-04 11:49 | P.CDIM_ITS ---
PROVIDER RESPONSE TEXT: To clarify, the appropriate diagnosis supported by the clinical indicators: Other (explain): uti QUERY TEXT: PHYSICIAN'S DOCUMENTATION REQUEST Date of Query: 06/04/2023 10:54 AM EDT Patient Name: Jeffery Marcus Admit Date: 05/24/2023 Dear Lit Peng, A review of the medical record indicates additional documentation may be needed. Please review below and update the documentation accordingly. Documentation includes the conditions of UTI and indwelling urethral catheter. Clinical Indicators: temperature on 05/27/23: 100.8, P 106, R 22 urine culture pending treated with IV Ceftriaxone Please clarify the relationship between these conditions: Yes, UTI is related to / associated with / due to indwelling urethral catheter No, UTI is not related to / associated with / due indwelling urethral catheter Other (explain) Clinically unable to determine (explain) Thank you, Keyla Jama RN Use of terms such as suspected, likely, concern for, or probable (associated with a specific diagnosi s that is being evaluated, monitored, or treated as if it exists) are acceptable and can be coded in the inpatient se tting, when documented at the time of discharge. Please use your independent medical judgment in providing your response. THIS QUERY IS PART OF THE PERMANENT MEDICAL RECORD
--- NOTE | 2023-06-18 10:30 | MHC.HEMONC ---
Triage call-Spoke with pt who states he has been at [facility] for a few weeks. States he just got out of isolation States he could not move the left side of his body. States he believes this is related to chemotherapy. States he will need to go to rehab after he gets discharged from [facility]. Pt is unsure of when he will be discharged. Pt instructed to call our department when he is discharged-pt agrees to call our department
== END 2023-06-02 15:40 | disposition skilled nursing facility (03) | DRG 469 ==
LOC: HO.ED 05-24 02:39 → HO.EDOVER 05-24 05:29 → HO.IMC 05-25 07:09
PROVIDERS: Emergency Medicine; Internal Medicine; Student in an Organized Health Care Education/Training Program; Admitting Provider Internal Medicine; Emergency Provider Emergency Medicine; PCP Internal Medicine; Visit Provider Internal Medicine
DX: N17.9 Acute kidney failure, unspecified (principal); C78.01 Secondary malignant neoplasm of right lung; C78.7 Secondary malignant neoplasm of liver and intrahepatic bile duct; I11.0 Hypertensive heart disease with heart failure; E66.01 Morbid (severe) obesity due to excess calories; I50.9 Heart failure, unspecified; E86.0 Dehydration; C19 Malignant neoplasm of rectosigmoid junction; B37.49 Other urogenital candidiasis; K12.31 Oral mucositis (ulcerative) due to antineoplastic therapy; B37.2 Candidiasis of skin and nail; N39.0 Urinary tract infection, site not specified; T45.1X5A Adverse effect of antineoplastic and immunosuppressive drugs, initial encounter; K76.0 Fatty (change of) liver, not elsewhere classified; I95.2 Hypotension due to drugs; T50.2X5A Adverse effect of carbonic-anhydrase inhibitors, benzothiadiazides and other diuretics, initial encounter; B35.6 Tinea cruris; G47.33 Obstructive sleep apnea (adult) (pediatric); R29.6 Repeated falls; Z20.822 Contact with and (suspected) exposure to COVID-19; Z68.39 Body mass index [BMI] 39.0-39.9, adult; Z79.899 Other long term (current) drug therapy
CPT/HCPCS: 0241U; 36415; 70450; 71045; 72125; 74177; 80048; 80053; 80076; 81001; 82947; 83605; 83735; 83880; 84484; 85025; 85027; 85610; 87040; 87086; 87493; 92950; 93005; 93306; 93971; 97116; 97162; 97530; 99285; C1758; J0696; J1100; J1170; J1644; J2270; J2405; J7120; Q9957; Q9967

== ENCOUNTER → 2023-05-23 19:37 | Outpatient (BNV) | payer BC, MEDICARE, SELFPAY | PROVIDERS: Admitting Provider Internal Medicine; Emergency Provider Emergency Medicine; PCP Internal Medicine; Visit Provider Internal Medicine Cardiovascular Disease | DX: R00.1 Bradycardia, unspecified (principal) | CPT/HCPCS: 93010 ==

== ENCOUNTER 2023-05-24 05:23 | Outpatient (BNV) | payer BC, MEDICARE, SELFPAY | END 2023-05-31 16:41 | PROVIDERS: Admitting Provider Internal Medicine; Emergency Provider Emergency Medicine; PCP Internal Medicine; Visit Provider Internal Medicine Cardiovascular Disease | DX: I45.4 Nonspecific intraventricular block (principal); R94.31 Abnormal electrocardiogram [ECG] [EKG] | CPT/HCPCS: 93010 ==

== ENCOUNTER 2023-05-24 05:23 | Outpatient (BNV) | payer BC, MEDICARE, SELFPAY | END 2023-05-26 07:00 | PROVIDERS: Admitting Provider Internal Medicine; Emergency Provider Emergency Medicine; PCP Internal Medicine; Visit Provider Internal Medicine Cardiovascular Disease | DX: I71.21 Aneurysm of the ascending aorta, without rupture (principal) | CPT/HCPCS: 93306 ==

== ENCOUNTER → 2023-05-24 05:23 | Outpatient (BNV) | payer BC, MEDICARE, SELFPAY | PROVIDERS: Admitting Provider Internal Medicine; Emergency Provider Emergency Medicine; Visit Provider Internal Medicine | DX: B37.49 Other urogenital candidiasis (principal); R29.6 Repeated falls; R55 Syncope and collapse; E66.01 Morbid (severe) obesity due to excess calories; Z68.39 Body mass index [BMI] 39.0-39.9, adult; I10 Essential (primary) hypertension | CPT/HCPCS: 99223; 99231; 99232; 99239; 99499 ==

== ENCOUNTER → 2023-05-24 05:23 | Outpatient (BNV) | payer BC, MEDICARE, SELFPAY | PROVIDERS: Admitting Provider Internal Medicine; Emergency Provider Emergency Medicine; PCP Internal Medicine; Visit Provider Internal Medicine | DX: R55 Syncope and collapse (principal); B37.49 Other urogenital candidiasis; R29.6 Repeated falls; R53.1 Weakness | CPT/HCPCS: 99221 ==

== ENCOUNTER → 2023-05-24 05:23 | Outpatient (BNV) | payer BC, MEDICARE, SELFPAY | PROVIDERS: Admitting Provider Internal Medicine; Emergency Provider Emergency Medicine; PCP Internal Medicine; Visit Provider Internal Medicine Cardiovascular Disease | DX: R55 Syncope and collapse (principal); R29.6 Repeated falls | CPT/HCPCS: 99223 ==

== ENCOUNTER → 2023-05-24 05:23 | Outpatient (BNV) | payer BC, MEDICARE, SELFPAY | PROVIDERS: Admitting Provider Internal Medicine; Emergency Provider Emergency Medicine; PCP Internal Medicine; Visit Provider Surgery | DX: B37.49 Other urogenital candidiasis (principal) | CPT/HCPCS: 99231 ==

== ENCOUNTER → 2023-05-24 05:23 | Outpatient (BNV) | payer BC, MEDICARE, SELFPAY | PROVIDERS: Admitting Provider Internal Medicine; Emergency Provider Emergency Medicine; PCP Internal Medicine; Visit Provider Internal Medicine | DX: C18.9 Malignant neoplasm of colon, unspecified (principal) | CPT/HCPCS: 99222; 99231 ==

== ENCOUNTER → 2023-08-03 23:59 | Outpatient (BNV) | payer BC, MEDICARE, SELFPAY | PROVIDERS: PCP Internal Medicine; Visit Provider Internal Medicine | DX: G81.94 Hemiplegia, unspecified affecting left nondominant side (principal); C20 Malignant neoplasm of rectum; I10 Essential (primary) hypertension | CPT/HCPCS: G0180 ==

== ENCOUNTER 2023-08-18 11:00 | Outpatient (AMB) | payer BC, MEDICARE, SELFPAY ==
[2023-08-18 11:03] VITALS: BP 138/64; PULSE 65; O2SAT 98; BMI 41.3
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
== END 2023-08-18 11:30 | disposition home or self-care (01) ==
PROVIDERS: PCP Internal Medicine; Visit Provider Internal Medicine
DX: C18.9 Malignant neoplasm of colon, unspecified (principal); M51.9 Unspecified thoracic, thoracolumbar and lumbosacral intervertebral disc disorder
CPT/HCPCS: 99213

== ENCOUNTER 2023-12-13 12:52 | Outpatient (AMB) | payer BC, MEDICARE, SELFPAY ==
[2023-12-13 12:54] VITALS: BP 132/80; PULSE 122; O2SAT 97; BMI 39.8
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
== END 2023-12-13 13:42 | disposition home or self-care (01) ==
PROVIDERS: PCP Internal Medicine; Visit Provider Internal Medicine
DX: C18.9 Malignant neoplasm of colon, unspecified (principal)

== ENCOUNTER → 2023-12-13 12:52 | Outpatient (BNVA) | payer BC, MEDICARE, SELFPAY | PROVIDERS: PCP Internal Medicine; Visit Provider Internal Medicine | DX: C18.9 Malignant neoplasm of colon, unspecified (principal); Z23 Encounter for immunization | CPT/HCPCS: 90471; 90656 ==

== ENCOUNTER 2024-01-04 10:06 | Outpatient (REF) | payer BC, MEDICARE, SELFPAY | END 2024-01-04 10:07 | disposition home or self-care (01) | LOC: HO.HOSX 10:06 | PROVIDERS: Visit Provider Orthopaedic Surgery | DX: M25.561 Pain in right knee (principal); M25.562 Pain in left knee; M17.0 Bilateral primary osteoarthritis of knee | CPT/HCPCS: 73562 ==

== ENCOUNTER 2024-01-04 15:15 | Outpatient (AMB) | payer BC, MEDICARE, SELFPAY ==
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
[2024-01-04 15:42] VITALS: BMI 38.5
== END 2024-01-04 16:01 | disposition home or self-care (01) ==
LOC: HO.HOS 15:15
PROVIDERS: PCP Internal Medicine; Visit Provider Orthopaedic Surgery
DX: M25.561 Pain in right knee (principal); M25.562 Pain in left knee
CPT/HCPCS: 99203

== ENCOUNTER 2024-02-08 15:59 | Outpatient (REF) | payer BC, MEDICARE, SELFPAY ==
--- OUTSIDE RECORDS SUMMARY | 2024-02-10 03:08 | XMS_ITS | Continuity of Care Document ---
Author Organization [facility] Address [address] [place] [id number]- [facility] Name Relationship Address Phone KUFTA, RAJANI Personal Relationship Unknown Unava ilable KUFTA, RAJANI spouse Unknown Unavailable KUFTA, KATHLEEN child Unknown Unavailable KUFTA, PHOUNG Personal Relationship Unknown Unava ilable KUFTA, RAJANI Personal Relationship Unknown Unava ilable KUFTA, RAJANI spouse Unknown Unavailable Care Team Providers Care Bass Viol Repairer Name Role Phone Jose Alberto EUGENE, Alban Mcpherson Primary Care Physician [place] [facility] [place]): [place]/[facility] [address] [place] [id number] Attending Physician: Robina Velazquez Admitting Physician: AdmtrRobina Referring Physician: AdmtrRobina Encounter Type: Triage Allergies, Adverse Reactions, Alerts Substance Criticality Severity Reaction Reaction Severity Status aspirin facial swelling, hives Active Immunizations Given and Recorded Vaccine Date Status Refusal Reason influenza virus vaccine, inactivated 02/11/23 Al rded influenza virus vaccine, inactivated 01/01/20 Al rded influenza virus vaccine, inactivated 03/28/19 Al rded influenza virus vaccine, inactivated 02/18/18 Al rded influenza virus vaccine, inactivated 01/15/17 Al rded influenza virus vaccine, inactivated 12/13/15 Al rded influenza virus vaccine, inactivated 11/21/08 Al rded influenza virus vaccine, inactivated 11/21/07 Al rded SARS-CoV-2 (COVID-19) mRNA BNT-162b2 vac 02/14/21 Recorded SARS-CoV-2 (COVID-19) mRNA BNT-162b2 vac 06/04/20 Recorded SARS-CoV-2 (COVID-19) mRNA BNT-162b2 vac 05/14/20 Recorded tetanus-diphtheria toxoids (Td) 04/10/17 Recorded pneumococcal 23-valent vaccine 12/13/15 Recorded tetanus/diphtheria/pertussis, acel(Tdap) 12/13/15 Recorded Medications acetaminophen-oxycodone 325 mg-10 mg oral tablet See Instructions, 1 tab every 12 hours prn pain Start Date: 10/18/23 Status: Ordered Repeat number: 1 Ascorbic Acid 0 Refills, Maintenance, 04/27/23 3:32:00 PM EST, Partial fill upon patient request if the prescription is for a schedule II opioid drug. Start Date: 04/27/23 Status: Ordered Repeat number: 1 atenolol 100 mg oral tablet 1 tablet = 100 mg, By Mouth, Daily, 0 Refills, Soft Stop, 01/11/09 9:22:08 AM EST Start Date: 01/11/09 Stop Date: 02/10/09 Status: Ordered Repeat number: 1 Capoten 25 mg oral tablet 1 tablet = 25 mg, By Mouth, 2 times a day, 0 Refills, Soft Stop, 01/11/09 9:23:18 AM EST Start Date: 01/11/09 Stop Date: 02/10/09 Status: Ordered Repeat number: 1 Centrum Silver Men's By Mouth, Daily, 0 Refills, Maintenance, 02/02/22 1:40:00 PM EST, Partial fill upon patient request if the prescription is for a schedule II opioid drug. Start Date: 02/02/22 Status: Ordered Repeat number: 1 cyclobenzaprine 10 mg oral tablet 10 mg, 1, tablet, By Mouth, 3 times a day, PRN, Spasm Start Date: 06/21/23 Status: Ordered Repeat number: 1 gabapentin 300 mg oral capsule 300 mg, By Mouth, 3 times a day, Refills 0, Maintenance, 06/21/23 11:06:00 AM EDT, Partial fill uponpatient request if the prescription is for a schedule II opioid drug. Start Date: 06/21/23 Status: Ordered Repeat number: 1 Guaiatussin = 600 mg, By Mouth, Every 4 hours, Maintenance, 11/26/23 2:55:00 PM EDT Start Date: 11/26/23 Status: Ordered Repeat number: 1 HYDROmorphone 4 mg oral tablet 1 tablet = 4 mg, By Mouth, Every 4 hours, PRN as needed for pain, 0 Refills, Maintenance, 11/26/23 2:51:00 PM EDT, Tablet, Partial fill upon patient request if the prescription is for a schedule II opioid drug. Start Date: 11/26/23 Status: Ordered Repeat number: 1 Multivitamin 0 Refills, Maintenance, 04/27/23 3:32:00 PM EST, Partial fill upon patient request if the prescription is for a schedule II opioid drug. Start Date: 04/27/23 Status: Ordered Repeat number: 1 nystatin topical 470659 u/gm powder APPLY TO AFFECTED AREA TOPICALLY 3 TIMES A DAY Start Date: 06/21/23 Status: Ordered Repeat number: 1 sertraline 50 mg oral tablet 1 tablet = 50 mg, By Mouth, Daily, # 30 tablet, 0 Refills, Maintenance, 06/11/23 5:43:00 AM EDT, Tablet, Partial fill upon patient request if the prescription is for a schedule II opioid drug. Start Date: 06/11/23 Status: Ordered Quantity: 30.0 Unit: tablet Repeat number: 1 venlafaxine 75 mg oral tablet 1 tablet = 75 mg, By Mouth, Daily, 0 Refills, Maintenance, 06/11/23 5:45:00 AM EDT, Tablet, Partial fill upon patient request if the prescription is for a schedule II opioid drug. Start Date: 06/11/23 Stop Date: 07/11/23 Status: Ordered Repeat number: 1 Vitamin D3 2000 intl units oral tablet 1 tablet = 50 mcg, By Mouth, Daily, 0 Refills, Maintenance, 04/27/23 3:31:00 PM EST, Partial fill upon patient request if the prescription is for a schedule II opioid drug. Start Date: 04/27/23 Status: Ordered Repeat number: 1 Problem List Condition Confirmation Course Effective Dates Status H ealth Status Informant Sacroiliac joint dysfunction of both sides Confirmed Active Obesity Confirmed Active Knee osteoarthritis Confirmed Active Severe obesity Confirmed Active Sleep apnea Confirmed Active Social History Social History Type Response Smoking Status Former smoker entered on: 01/26/17 Sex Sex Representation Male (finding) Patient Care team information Care Team Personnel Name: Isaias Jacome RN Position: [facility] RN Member Role: Primary Care Nurse Name: Savita Martins RN Position: [facility] Supv Member Role: Primary Care Nurse Name: Luke Hanley Position: [facility] RN Member Role: Primary Care Nurse Name: Alban Abrams MD Position: Reference Physician Member Role: PCP Address: [address] [place] [address] Telecom: Name: Amee Francis RN Position: [facility] RN Member Role: Primary Care Nurse Name: Brielle Howard RN Position: [facility] RN Member Role: Primary Care Nurse Name: Melonie Tomas RN Position: [facility] RN Member Role: Primary Care Nurse Name: Sommer Angeles RN Position: [facility] RN Member Role: Primary Care Nurse Name: Janny Platt RN Position: [facility] RN Member Role: Primary Care Nurse Name: Ashwin Patrick RN Position: [facility] RN Member Role: Primary Care Nurse Name: Palma Hawk RN Position: [facility] RN Member Role: Primary Care Nurse Name: Dede Rocha LPN Position: [facility] RN Member Role: Primary Care Nurse Care Team Related Persons Name: KATHLEEN HERNANDEZ Name: RAJANI HERNANDEZ Insurance Providers Guarantor name: INESSA HERNANDEZ Health Plan Information #: 1 Payer: [employer] Member Number: NA Policy Number: NA Group Number: NA Health Plan Information #: 2 Payer: MEDICARE PART B OUTPT Member Number: NA Policy Number: NA Group Number: NA
--- OUTSIDE RECORDS SUMMARY | 2024-02-10 03:09 | XMS_ITS | Data Portability ---
Author Organization [facility] igobubble [facility], Main Office Address [address] [place] [address] Care Team Providers Care Compliance Reviewer Name Role Phone BEREKET SURESH - 2ND FLOOR OTHER BERTHA BARRY Primary Care Provider Assessment No assessment recorded. Plan of Treatment Reminders Order Date Submit Date Provider Last Modified By Organization Details Last Modified Time Details Appointments None recorded. Lab None recorded. Referral None recorded. Procedures None recorded. Surgeries None recorded. Imaging None recorded. Medication Orders oxycodone 5 mg tablet 2023 024 [facility] , [address] [place] [address], [id number], 4 08:37:48 Ambien CR 12.5 mg tablet,ext ended release 2023 024 [facility] , [address] [place] [address], [id number], 4 08:37:48 Patient TargetsNo targets recorded. Patient Instructions Encounter Date Encounter Id Patient Instructions Last Modified By Organization Details Last Modified Time 06/04/2023 [id number] shingles: care instructions Not available 06/04/2023 17:34:45 Reason for Referral None Reported. Problems Name Problem SNOMED Code Status Onset Date Resolution Date Notes Provider Name and Address Organization Details Recorded Time 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 Active 2023 Bren Valero NP [address] [facility] [facility], [address], [place], [address] [email or web address] 4 08:59:38 Acute kidney injury 67838859 Active 2023 Bren Valero NP [address], [address], [place], [address], [facility] 4 08:59:46 Tinfelix singletary 165179872 Active 2023 Bren Valero NP [address], [address], [place], [address], [facility] 4 09:00:05 Obstructive sleep apnea syndrome 88629300 Active 2023 Bren Valero NP [address], [address], [place], [address], [facility] 4 09:00:33 Obesity 277915117 Active 2023 Bren Valero NP [address], [address], [place], [address], [facility] 4 09:00:40 Congestive heart failure 41722204 Active 2023 Bren Valero NP [address], [address], [place], [address], [facility] 4 09:00:47 Recurrent falls 253531311 Active 2023 Bren Valero NP [address], [place], [address], [facility] 4 09:00:54 Hypertensiv e disorder 21451745 Active 2023 Bren Valero NP [address], [address], [place], [address], [facility] 4 09:01:04 Asthenia 60961359 Active 2023 Bren Valero NP [address], [place], [address], [facility] 4 09:04:03 Retention of urine 356065543 Active 2023 Bren Valero NP [address], [place], [address], [facility] 4 09:07:12 Syncope 126504146 Active 2023 Bren Valero NP [address] [facility], [address], [place], [address], [facility] 4 09:09:13 Leukocytosi s 840715908 Active 2023 Bren Valero NP [address] [facility], [address], [place], [address], [facility] 4 09:13:27 Aspartate transaminas e level above reference range 8304287320661 08 Active 2023 Bren Valero NP [address] [facility], [address], [place], [address], [facility] 4 09:15:25 Loose stool 333017653 Active 2023 Bren Valero NP [address] [facility], [address], [place], [address], [facility] 4 09:24:36 Candidiasis 34156526 Active 2023 Bren Valero NP [address] [facility], [address], [place], [address], [facility] 4 09:28:02 Insomnia 034852897 Active 2023 Bren Valero NP [address] [facility], [address], [place], [address], [facility] 4 10:17:35 Malignant neoplasm of colon and/or rectum 078324075 Active 2023 Joselo Alonso MD [address] [facility], [address], [place], [address], [facility] 4 14:45:45 Problem Notes None recorded. Medical Equipment None Reported. Allergies Allergen ID Allergen Name Allergen Category Reaction Reaction Severity Criticality Documentation Date Start Date Code Code System Note Provider Name and Address Organization Details Recorded Time 24155 aspirin medicatio n other Not available unabletoasse 06/03/2023 1191 RxNorm rBen Valero NP [address] [facility], [address], [place], [address], [facility] 4 10:21:26 Medications Name Sig Start Date Stop Date Status Note LastModified by Organization Details LastModified Time Dilaudid 2 mg tablet Take 1 tablet every 4 hours by oral route as needed, for pain. active Not Available Not Available Not Avai lable morphine concentrate 100 mg/5 mL (20 mg/mL) oral solution 5-10 mg PO q 4 hours PRN pain active Not Available Not Available Not Avai lable atenolol 100 mg tablet TAKE 1 TABLET BY MOUTH DAILY active Not Available Not Available No t Available minocycline 50 mg capsule active Not Available Not Availabl e Not Available captopril 25 mg tablet TAKE 1 TABLET BY MOUTH TWICE A DAY active Not Available Not Available No t Available gabapentin 300 mg capsule TAKE 1 CAPSULE BY MOUTH THREE TIMES A DAY active Not Available Not Available No t Available nystatin 100,000 unit/gram topical powder active Not Available Not Available Not Available sertraline 50 mg tablet TAKE 1 TABLET BY MOUTH DAILY active Not Available Not Available No t Available oxycodone 5 mg tablet 1 tab po mild mod pain and 2 tabs mod severe pain q 6 hours prn active Not Available Not Available Not Avai lable Ambien CR 12.5 mg tablet,extend ed release 1 tab po qhs active Not Available Not Available Not Avai lable OxyContin 20 mg tablet,crush resistant,ext ended release active Not Available Not Availabl e Not Available Vitals Date Recorded Heart rate Respiratory rate Systolic blood pressure Diastolic blood pressure Provider Name and Address Organization Details Last Updated DateTime 06/03/2023 100 /min 18 /min 130 mm[Hg] 84 mm[Hg] Bren Valero NP [address] [facility] [address], [place], [address] , [facility] 06/03/2023 08:19:07 Date Recorded Heart rate Respiratory rate Body temperature Oxygen saturation Oxygen saturation in Arterial blood by Pulse oximetry Systolic blood pressure Diastolic blood pressure Provider Name and Address Organization Details Last Updated DateTime 100 /min 18 /min 97.6 [degF] 93 % 93 % 149 mm[Hg] 83 mm[Hg] Bren Valero NP [address] [facility] [address], [place], [address], [facility] 17:23:47 Date Recorded Heart rate Respiratory rate Body temperature Oxygen saturation Oxygen saturation in Arterial blood by Pulse oximetry Systolic blood pressure Diastolic blood pressure Provider Name and Address Organization Details Last Updated DateTime 98 /min 16 /min 97.9 [degF] 94 % 94 % 149 mm[Hg] 92 mm[Hg] Bren Valero NP [address] [facility], [address], [place], [address], [facility] 12:33:05 Date Recorded Systolic blood pressure Diastolic blood pressure Provider Name and Address Organization Details Last Updated DateTime 06/05/2023 177 mm[Hg] 100 mm[Hg] Joselo Alonso MD [address] [facility], [address], [place], [address], [facility] 06/05/2023 14:39:02 Social History Question Answer Notes LastModified by Organizat ion Details LastModified Time Tobacco Smoking Status Former Smoker Bren Valero NP [address] [facility], [address], [place], [address], [facility] 06/03/2023 10:22:59 Do You Have An Advance Directive? No Information not available 06/03/2023 What Is Your Level Of Alcohol Consumption? None Information not available 06/03/2023 What Is Your Code Status? Full Code Information not available 06/03/2023 Where Do You Live? [place] Information not available 06/03/2023 What Was The Date Of Your Most Recent Tobacco Screening? 06/03/2023 Information not available 06/03/2023 Do You Have An Out Of Hospital DNR? No Information not available 06/03/2023 What Is Your Relationship Status? Information not available 06/03/2023 How Much Tobacco Do You Smoke? No Information not available 06/03/2023 Do You Use Any Illicit Or Recreational Drugs? No Tried Cbd Gummies 2 Years Ago Information not available 06/03/2023 Has Tobacco Cessation Counseling Been Provided? No Information not available 06/03/2023 Do You Or Have You Ever Used Any Other Forms Of Tobacco Or Nicotine? No Information not available 06/03/2023 Sex: Male Functional Status None recorded. Mental Status None recorded. Family History Nothing Reported Notes:father: colon and kidn ey cancer Medical History No medical history recorded. Immunizations Vaccine Type Date Status Note Provider Nam e and Address Organization Details Recorded Time [facility] 12:23:34 Td(adult) unspecified formulation 8 completed [facility] 06/04/2023 12:23:50 pneumococcal polysaccharide PPV23 6 completed [facility] 06/04/2023 12:24:08 influenza, unspecified formulation 3 completed [facility] 06/04/2023 12:24:27 SARS-COV-2 (COVID-19) vaccine, UNSPECIFIED 1 completed [facility] 06/04/2023 12:24:41 SARS-COV-2 (COVID-19) vaccine, UNSPECIFIED 1 completed [facility] 06/04/2023 12:24:50 SARS-COV-2 (COVID-19) vaccine, UNSPECIFIED 1 completed [facility] 06/04/2023 12:24:59 Past Encounters Encounter ID Performer Location Encounter Start Date Encounter Closed Date Diagnosis/Indication Diagnosis SNOMED-CT Code Diagnosis ICD10 Code [id number] Bren Valero NP [address] [address] 06/03/2023 08:17:28 06/07/2023 10:25:32 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 2768226826 C80.1 Acute kidney injury 1466 9001 N17.9 Recurrent falls 68321984 2 R29.6 Asthenia 07415438 R53.1 Tinea cruris 269938926 B 35.6 Hypertensive disorder 38 897487 I10 Obstructiv e sleep apnea syndrome 24869019 G47.33 Congestive heart failure 98982074 I50.9 Obesity 894027341 E66.9 Retention of urine 04857 4002 R33.9 Syncope 474891008 R55 Leukocytosis 931709109 D 72.829 Aspartate transaminase level above reference range 2591618708 99347 R74.01 Depressive disorder 3548 9007 F32.A Loose stool 101728569 R1 9.5 Candidiasis 86924592 B37 .9 Insomnia 122476452 G47.0 0 Chronic pain 58558968 G8 9.29 [id number] Bren Valero NP [address] [address] 06/04/2023 16:56:47 06/07/2023 12:36:23 Herpes zoster 7883490 B02.9 [id number] Joselo Alonso MD [address] [address] 06/05/2023 14:38:30 06/08/2023 12:28:37 Malignant neoplasm of colon and/or rectum 531282355 C19 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 3380417613 C80.1 Acute kidney injury 1466 9001 N17.8 Recurrent falls 30944204 2 R29.6 Asthenia 61564906 R53.1 Hypertensive disorder 38 106214 I10 Congestive heart failure 70722518 I50.22 Depressive disorder 3548 9007 F33.8 Insomnia 804703822 G47.0 0 Acute infe ctive cystitis 365187670 N30.00 Herpes zoster 0631559 B0 2.9 Edema of scrotum 5028180 0 N50.89 Candidiasis of skin 4988 3006 B37.2 [id number] [facility] [address] 06/08/2023 12:31:40 06/16/2023 11:13:19 Malignant neoplasm of colon and/or rectum 921100490 C19 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 0057642814 C80.1 Acute kidney injury 1466 9001 N17.8 Asthenia 17662325 R53.1 Recurrent falls 62053585 2 R29.6 Hypertensive disorder 38 844799 I10 Congestive heart failure 77456190 I50.22 Acute infe ctive cystitis 641769907 N30.00 Depressive disorder 3548 9007 F33.8 Insomnia 981195701 G47.0 0 Herpes zoster 8037400 B0 2.9 Candidiasis of skin 4988 3006 B37.2 Edema of scrotum 1289258 0 N50.89 Health Concerns Section Related Observation LastModified by Organization Detai ls LastModified Time None Recorded Concern Status LastModified by Organization Details LastModified Time None Recorded Advance Directives Directive N: Payers Encounter Date Sequence Insurance Name Policy Number Policy Ochoa Covered Member ID Ochoa Member ID Guarantor Name 06/03/2023 1 [employer]) [id number] Jeffery Landisa [id number] Jeffery [employer] 06/04/2023 1 [employer] [id number] Jeffery Landisa [id number] Jeffery [employer] 06/05/2023 1 [employer]) [id number] Jeffery Juddfta [id number] Jeffery [employer] 06/08/2023 1 [employer]) [id number] Jeffery Landisa [id number] Jeffery Landisa Notes Date Note Type Note Provider Name and Address Organization Details Recorded Time 06/03/19 24 text/htm l Pt is seen for an initial visit. 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 Beck, BRANDON, CHF, obesity, HTN. Jeffery a 72 yo male with pmh above who [facility] continued care after hospitalization at [facility] from 05/22/-06/02/23 initially presenting with fall, weakness, and dizziness found to have dehydration secondary to chemo, JOHN, leukocytosis, UTI, tinea cruris, and elevated transaminases. His workup showed low bp, o2 88% on ra resolved with o2, leukocytosis 19, hgb 13 and platelet 199, bun 26, cr 1.6. trop 32. Abd CT showed 1-2 cm calculus in the urinary bladder without hydronephrosis, cholelithiasis, and fatty liver/cirrhosis changes. Cervical spine Ct and head CT showed no acute changes. Moderate underlying microangiopathy and gen cerebral vol loss. 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 Vencous doppler showed no DVT to RLE.He was treated with IVF, oxycodone, nystatin powder, and fluconazole for 4 more days. leukocytosis felt to be from steroids. UTI with jackson was treated with ceftriaxone and urine culture negative with plan to dc jackson in rehab. Elevated transaminases felt likely to liver mets and hepatic steatosis with recheck of LFTs rec in one week. During his hospitalization he was started on nystatin susp, zinc oxide ointment, oxycodone 10 mg po bid prn and metoprolol tartate 50 mg bid, fluconazole x 4 doses, and clotrimazole/betamethasone cream. His atenolol and minocycline were d/c'd. On exam, pt is alert and oriented x4. He is very articulate in his needs and a good historian. Overall received chemo approx 10 days ago and also follows with Alexa Alejandro. He is unsure of next appt with Dr. Beck and will have [facility] [place] for appt today. Lungs diminshed throughtout, very obese with poor effort and has extensive rash to abd folds and groin. He denies any concerns except pain today and mentions he received IV pain meds in addition to oxycodone there. He requests oxycodone more frequent and will agree as he percocet will be dc'd due to liver mets. He does not have oral thrush today, but also on diflucan. MOLST:Full code 06/03 23 signedBIMS /15MOLST high fall risk Bren Valero, BK [address] [facility], [address], [place], [address], [email or web address] 06/03/2023 10:48:27 06/04/19 24 text/htm l Pt is seen for an acute visit for nursing concern of shingles per wound PA. 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 Beck, BRANDON, CHF, obesity, HTN. Jeffery a 72 yo male with pmh above who is admitted to [facility] for rehab and continued care after hospitalization at [facility] from 05/22/-06/02/23 initially presenting with fall, weakness, and dizziness found to have dehydration secondary to chemo, JOHN, leukocytosis, UTI, tinea cruris, and elevated transaminases. On exam, Pt is sitting up in bed in NAD. He states he is due for the oxycodone and would like his dose but overall states he needs the IV pain management with morphine, dilaudid, or demerol. He is aware we cannot provide IV narcotic medications in rehab and will have nurse deliver his next dose. He is alert and awake and shows this RADIO MECHANIC APPRENTICE his panus with multiple vesicular open areas in his fold which he states is very painful. He has interdry sheets to the area currently. Education on shingles is provided to nursing, pt, and daughter in room including precautions. Plan to keep the area covered as much as possible. Due to immunosuppression with recent chemo without leukopenia will start acyclovir today. MOLST:Full code 06/03 23 signedBIMS MOLST high fall risk Bren Valero NP [address] [facility], [address], [place], [address], [facility] 06/04/2023 17:34:47 06/05/19 24 text/htm l Patient is a 72 yo male admit from hospital after presenting with weakness s/p fall. Found to be in ARF with elevated wbc count and UTI complicated by rectosigmoid cancer s/p partial colectomy on chemotherapy, concern for dehydration. Treated with rocephin and IVF. Elevated LFTs felt secondary to probable metastatic spread to liver. Followed at [facility] for above CA, now with chemo at [facility] Of note since arrival at facility patient dx with shingles and started on acyclovir present and questions answered PMH significant forcolon CA s/p partial colectomychfhtnobesityOSA admit to facility for continued care and therapy to eval and treat Joselo Alonso MD [address] [facility], [address], [place], [address], [facility] 06/05/2023 15:30:47 06/08/19 24 text/htm l Pt is seen for acute rounding visit today. 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 Beck, BRANDON, CHF, obesity, HTN. Jeffery is a 72 yo male admitted to [facility] from hospital 05/22-06/01 after presenting with weakness s/p fall. Found to be in ARF with leukocytosis felt due to UTI complicated by rectosigmoid cancer s/p partial colectomy on chemotherapy, and concern for dehydration. While in the hosp he tx with rocephin and IVF. Elevated LFTs felt likely to metastatic spread to liver. Followed at [facility] for above CA, now with chemo at [facility]. On 06/03 pt diagnosed with shingles and fungal rash to abd/groin/panus, started on acyclovir, requiring oxycodone to manage pain.On 06/04 pt required extended addition of diflucan, oxycontin for pain in addition to oxycodone on admit, and increased metoprolol for high hr.On 06/07 this provider completed a P to P with insurance to inquire about clinical status for his care and progress with therapy which took over 10-15 minutes of this providers time. On exam, Pt is sitting up in bed in [facility]. He is scrolling through the pictures on his phone stating he would like to share some pictures. This RADIO MECHANIC APPRENTICE waited over 10 minutes for pt to show his picture on his phone which he cannot bring up regarding his wound. He refuses to left this RADIO MECHANIC APPRENTICE see his wound today. He reports standing and leg exercises daily with therapy but is too weak to do much more. He also reports pain 5/10 which is tolerable today on current pain regimen. Lungs clear and heart rate reg. No new concerns today. MOLST:Full code 06/02 24 signedBIMS MOLST high fall risk Bren Valero, BK [address] [facility], [address], [place], [address], [facility] - [email or web address] 06/08/2023 14:09:08
== END 2024-02-08 16:00 | disposition home or self-care (01) ==
LOC: HO.HOSX 15:59
PROVIDERS: Visit Provider Orthopaedic Surgery
DX: Z13.89 Encounter for screening for other disorder (principal)

== ENCOUNTER 2024-04-18 09:59 | Outpatient (REF) | payer BC, MEDICARE, SELFPAY ==
--- NOTE | ~2024-04-18 | US_ITS ---
EXAMINATION: US TRIPLEX LOWER EXTREMITY, RIGHT CLINICAL INFORMATION: Pain, right lower extremity COMPARISON: May 24, 2023. TECHNIQUE: Color-flow triplex imaging with spectral analysis and compression Doppler were performed on the right lower extremity. FINDINGS: Respiratory variation, normal compression and augmented flow are noted throughout the right lower extremity. The visualized common femoral vein, superficial femoral vein, profunda femoral vein, popliteal vein and midcalf peroneal and posterior tibial venous segments show no evidence of deep venous thrombosis. There is no Beatty's cyst. Prominent inguinal lymph nodes. US/US venous duplex LE RT IMPRESSION: No acute deep venous thrombosis involving the right lower extremity. Negative for DVT.. Electronically signed by: Carmelo Read MD 04/18/2024 03:38 PM EST
--- NOTE | ~2024-04-18 | XR_ITS ---
CLINICAL HISTORY: cough 2 view chest x-ray Comparison: None Findings: Limited films due to body habitus. Left lower lobe consolidation and/or hemidiaphragm elevation. Left lower lobe nodular density is nonspecific. Follow-up chest CT may be of value. No prior studies available for comparison. Right lung clear. Cardiomegaly. Right infusion catheter tip SVC. No acute bony abnormality. Impression: Nonspecific lobular left lower lobe density Question consolidation with or without hemidiaphragm elevation 3 cm rounded density left lower lobe, recommend follow-up CT This document has been electronically signed by: Bharathi Allen MD on 04/18/2024 19:07:13
--- OUTSIDE RECORDS SUMMARY | 2024-04-18 10:49 | XMS_ITS | Clinical Summary ---
Author Organization [facility] Address [address] [place] [address] Care Team Providers Care Alcohol Rubber Name Role Phone Pcp, No Primary Care Provider Unavailabl e Allergies Active Allergy Reactions Criticality Noted Date Comments Aspirin Hives Medium 11/24/2022 Medications Medication Sig Dispensed Refills Start Date End Date Status gabapentin (NEURONTIN) 300 MG capsuleIndications:P ain in left ankle and joints of left foot TAKE 1 CAPSULE BY MOUTH THREE TIMES A DAY 270 capsule 02/22/2024 Active [facility] Vitamin C 500 MG tabletIndications:No ndisplaced fracture of fifth metatarsal bone, unspecified foot, initial encounter for closed fracture TAKE 2 TABLETS BY MOUTH EVERY DAY 30 tablet 3 02/22/2024 Active Cholecalciferol (D3) 50 MCG (1999) TabIndications:Nondi splaced fracture of fifth metatarsal bone, unspecified foot, initial encounter for closed fracture TAKE 2 TABLETS (4,000 UNITS TOTAL) BY MOUTH DAILY. 180 tablet 3 02/22/2024 Active Encounters Date Type Department Care Team Description 02/21/2024 Ref[facility] [address] [address] Angie Greer, ANDREA Nondisplaced fracture of fifth metatarsal bone, unspecified foot, initial encounter for closed fracture 02/21/2024 [facility] [address] [facility] [address] [facility] [address] [place] [address] Raymon Castellanos MD Pain in left ankle and joints of left foot from Last 3 Months Social History Tobacco Use Types Packs/Day Years Used Date Smoking Tobacco: Never Assessed Sex and Gender Information Value Date Recorded Sex Assigned at Male 11/24/2022 7:02 AM EDT Gender Identity Male 11/24/2022 7:02 AM EDT Sexual Orientation Choose not to disclose 2022 7:02 AM EDT Plan of Treatment Health Maintenance Due Date Last Done Comments Hepatitis C Virus Screening 1950 DTaP/Tdap/Td Vaccines (1 - Tdap) 12/27/1967 Colonoscopy 1993 Pneumococcal Vaccines 50+ (1 of 1 - PCV) 1998 Zoster (Shingles) Vaccine (1 of 2) 1998 Influenza Vaccine 09/30/2023 COVID-19 Vaccine (1 - 2023-2 5 season) 2023 RSV Vaccine 60 years and old er and Patients (1 - 1-dose 75+ series) 12/27/2023 Hepatitis B Vaccines Aged Out No long er eligible based on patient's age to complete this topic Care Teams Alcohol Rubber Relationship Specialty Start Date End Date Pcp, No PCP - General General Medicine 11/23/22
--- OUTSIDE RECORDS SUMMARY | 2024-04-18 10:49 | XMS_ITS ---
Author Name [facility] Organization Unknown Problems Problem Status Onset Date Problem Type Date of Resoluti on Source Nondisplaced fracture of fifth metatarsal bone, unspecified foot, initial encounter for closed fracture [facility]
--- OUTSIDE RECORDS SUMMARY | 2024-04-18 10:49 | XMS_ITS | Continuity of Care Document ---
Author Organization [facility] Address [address] [place] [id number] [facility] Name Relationship Address Phone KUFTA, RAJANI Personal Relationship Unknown Unava ilable KUFTA, RAJANI spouse Unknown Unavailable KUFTA, KATHLEEN child Unknown Unavailable KUFTA, PHOUNG Personal Relationship Unknown Unava ilable KUFTA, RAJANI Personal Relationship Unknown Unava ilable KUFTA, RAJANI spouse Unknown Unavailable Care Team Providers Care Supervisor Contact Lens Name Role Phone Jose Alberto EUGENE, Alban Mcpherson Primary [id number] Date(s): 01/20/24 - 03/23/24 [facility] [address] [place] [id number] Attending Physician: Franky Ramirez MD Admitting Physician: Franky Ramierz MD Encounter Type: Pre-OutPatient One Time Allergies, Adverse Reactions, Alerts Substance Criticality Severity [...] 06/04/20 Recorded SARS-CoV-2 (COVID-19) mRNA BNT-162b2 vac 3/16/21 Recorded tetanus-diphtheria toxoids (Td) 04/10/17 Recorded pneumococcal [...] Status: Ordered Repeat number: 1 nystatin topical [id number] u/gm powder APPLY TO AFFECTED AREA TOPICALLY [...] Team Personnel Name: Isaias Jacome RN Position: S RN Member Role: Primary Care Nurse Name: Savita Martins RN Position: S RN Supv Member Role: Primary Care Nurse Name: Luke Hanley Position: [facility] RN Member Role: Primary Care Nurse Name: Alban Abrams MD Position: Reference Physician Member Role: PCP Address: [address] [place] [id number] Telecom: Name: Amee Francis RN Position: [facility] RN Member Role: Primary Care Nurse Name: Brielle Howard RN Position: S RN Member Role: Primary Care Nurse Name: Melonie Tomas RN Position: [facility] RN Member Role: Primary Care Nurse Name: Sommer Angeles RN Position: [facility] RN Member Role: Primary Care Nurse Name: Janny Platt RN Position: [facility] RN Member Role: Primary Care Nurse Name: Ashwin Patrick RN Position: [facility] RN Member Role: Primary Care Nurse Name: Palma Hawk RN Position: [facility] RN Member Role: Primary Care Nurse Name: Dede Rocha LPN Position: [facility] RN Member Role: Primary Care Nurse Care Team Related Persons Name: KATHLEEN HERNANDEZ Name: RAJANI HERNANDEZ Insurance Providers Guarantor name: INESSA HERNANDEZ Health Plan Information #: 4 Payer: [facility] Member Number: [id number] Policy Number: NA Group Number: NA Health Plan Information #: 1 Payer: [employer] Member Number: [id number] Policy Number: NA Group Number: [id number] Health Plan Information #: 3 Payer: OUT OF STATE PLANS Member Number: [id number] Policy Number: NA Group Number: NA Health Plan Information #: 2 Payer: MEDICARE PART B OUTPT Member Number: [id number] Policy Number: NA Group Number: NA
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
== END 2024-04-18 10:00 | disposition home or self-care (01) ==
LOC: HO.US 09:59
PROVIDERS: PCP Internal Medicine; Visit Provider Internal Medicine
DX: C18.9 Malignant neoplasm of colon, unspecified (principal); R05.9 Cough, unspecified; R60.9 Edema, unspecified
CPT/HCPCS: 71046; 93971

== ENCOUNTER → 2024-04-18 10:07 | Outpatient (BNV) | payer BC, MEDICARE, SELFPAY | PROVIDERS: PCP Internal Medicine; Visit Provider Radiology Diagnostic Radiology | DX: R91.1 Solitary pulmonary nodule (principal); M79.604 Pain in right leg | CPT/HCPCS: 71046; 93971 ==

== ENCOUNTER → 2024-04-25 09:42 | Outpatient (BNVA) | payer BC, MEDICARE, SELFPAY | PROVIDERS: PCP Internal Medicine ==

== ENCOUNTER 2024-04-26 14:30 | Outpatient (AMB) | payer BC, MEDICARE, SELFPAY ==
[2024-04-26 14:35] VITALS: BP 148/82; PULSE 120; O2SAT 93; BMI 41.7
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
--- OUTSIDE RECORDS SUMMARY | 2024-04-26 17:57 | XMS_ITS | Clinical Summary ---
Author Organization [facility] Address [address] [place] [address] Care Team Providers Care Fan Engine Engineer Name Role Phone Pcp, No Primary Care [...] Care Team Description 02/21/2024 [facility] [address] [address] Angie Greer, ANDREA Nondisplaced fracture of fifth metatarsal bone, unspecified foot, initial encounter for closed fracture 02/21/2024 [facility] [address] [place] [address] Raymon Castellanos MD Pain in left ankle [...] age to complete this topic Care Teams Fan Engine Engineer Relationship Specialty Start Date End Date Pcp, No PCP - General General Medicine 11/23/22
--- OUTSIDE RECORDS SUMMARY | 2024-04-26 17:57 | XMS_ITS | Data Portability ---
Author Organization [facility] [email or web address] [facility], Main Office Address [address] [place] [address] Care Team Providers Care Film Washer Name Role Phone BEREKET SURESH - 2ND FLOOR OTHER BERTHA BARRY Primary Care Provider [phone] Assessment No assessment recorded. Plan of Treatment Reminders Order Date Submit Date Provider Last Modified By Organization Details Last Modified Time Details Appointments None recorded. Lab None recorded. Referral None recorded. Procedures None recorded. Surgeries None recorded. Imaging None recorded. Medication Orders oxycodone 5 mg tablet 2023 024 [facility] , [address] [place] [address], [id number], 4 08:37:48 Ambien CR 12.5 mg tablet,ext ended release 2023 024 [facility] , [address] [place] [address], [id number], 4 08:37:48 Patient TargetsNo targets recorded. Patient Instructions Encounter Date Encounter Id Patient Instructions Last Modified By Organization Details Last Modified Time 06/04/2023 [id number] shingles: care instructions Not available 06/04/2023 17:34:45 Reason for Referral None Reported. Problems Name Problem SNOMED Code Status Onset Date Resolution Date Notes Provider Name and Address Organization Details Recorded Time 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 Active 2023 Bren Valero NP [address], [address], [place], [address] , [facility] [employer] 4 08:59:38 Acute kidney injury 21284885 Active 2023 Bren Valero NP [address], [address], [place], [address], [facility] 4 08:59:46 Tinfelix singletary 066940956 Active 2023 Bren Valero NP [address], [address], [place], [address], [facility] 4 09:00:05 Obstructive sleep apnea syndrome 22292907 Active 2023 Bren Valero NP [address], [address], [place], [address], [facility] 4 09:00:33 Obesity 942055841 Active 2023 Bren Valero NP [address], [address], [place], [address], [facility] 4 09:00:40 Congestive heart failure 74442032 Active 2023 Bren Valero NP [address], [place], [address], [facility] 4 09:00:47 Recurrent falls 275092334 Active 2023 Bren Valero NP [address], [address], [place], [address], [facility] 4 09:00:54 Hypertensiv e disorder 67973758 Active 2023 Bren Valero NP [address], [place], [address], [facility] 4 09:01:04 Asthenia 89183622 Active 2023 Bren Valero NP [address], [address], [place], [address], [facility] 4 09:04:03 Retention of urine 180827975 Active 2023 Bren Valero NP [address], [place], [address], [facility] 4 09:07:12 Syncope 364685120 Active 2023 Bren Valero NP [address], [address], [place], [address], [facility] 4 09:09:13 Leukocytosi s 646456375 Active 2023 Bren Valero NP [address], [address], [place], [address], [facility] 4 09:13:27 Aspartate transaminas e level above reference range 8018590042412 08 Active 2023 Bren Valero NP [address], [address], [place], [address], [facility] 4 09:15:25 Loose stool 053925567 Active 2023 Bren Valero NP [address], [address], [place], [address], [facility] 4 09:24:36 Candidiasis 77178832 Active 2023 Bren Valero NP [address], [address], [place], [address], [facility] 4 09:28:02 Insomnia 273635699 Active 2023 Bren Valero NP [address], [address], [place], [address], [facility] 4 10:17:35 Malignant neoplasm of colon and/or rectum 421034189 Active 2023 Joselo Alonso MD [address], [address], [place], [address], [facility] 4 14:45:45 Problem Notes None recorded. Medical Equipment None Reported. Allergies Allergen ID Allergen Name Allergen Category Reaction Reaction Severity Criticality Documentation Date Start Date Code Code System Note Provider Name and Address Organization Details Recorded Time 88193 aspirin medicatio n other Not available unabletoasse ss 06/03/2023 1191 RxNorm Not Available Not Available Not Available Medications Name Sig Start Date Stop Date Status Note LastModified by Organization Details LastModified Time Dilaudid 2 mg tablet Take 1 tablet every 4 hours by oral route as needed, for pain. 024 active Not Available Not Available Not Avai lable morphine concentrate 100 mg/5 mL (20 mg/mL) oral solution 5-10 mg PO q 4 hours PRN pain 024 active Not Available Not Available Not Avai [...] mod severe pain q 6 hours prn 024 active Not Available Not Available Not Avai lable Ambien CR 12.5 mg tablet,extend ed release 1 tab po qhs 024 active Not Available Not Available Not Avai lable OxyContin 20 mg tablet,crush resistant,ext ended release active Not Available Not Availabl e Not Available Vitals Date Recorded Heart rate Respiratory rate Systolic blood pressure Diastolic blood pressure Provider Name and Address Organization Details Last Updated DateTime 06/03/2023 100 /min 18 /min 130 mm[Hg] 84 mm[Hg] Bren Valero NP [address], [address] , [facility] 06/03/2023 08:19:07 Date Recorded Heart rate Respiratory rate Body temperature Oxygen saturation Oxygen saturation in Arterial blood by Pulse oximetry Systolic blood pressure Diastolic blood pressure Provider Name and Address Organization Details Last Updated DateTime 4 100 /min 18 /min 97.6 [degF] 93 % 93 % 149 mm[Hg] 83 mm[Hg] Bren Valero NP [address] [facility] [address], [place], [address], [facility] 4 17:23:47 Date Recorded Heart rate Respiratory rate Body temperature Oxygen saturation Oxygen saturation in Arterial blood by Pulse oximetry Systolic blood pressure Diastolic blood pressure Provider Name and Address Organization Details Last Updated DateTime 4 98 /min 16 /min 97.9 [degF] 94 % 94 % 149 mm[Hg] 92 mm[Hg] Bren Valero NP [address], [address], [place], [address], [facility] 4 12:33:05 Date Recorded Systolic blood pressure Diastolic blood pressure Provider Name and Address Organization Details Last Updated DateTime 06/05/2023 177 mm[Hg] 100 mm[Hg] Joselo Alonso MD [address], [address], [place], [address], [facility] 06/05/2023 14:39:02 Social History Question Answer Notes LastModified by Organizat ion Details LastModified Time Tobacco Smoking Status Former Smoker Bren Valero NP [address], [address], [place], [address], [facility] 06/03/2023 10:22:59 Do You Have An Advance Directive? No Information not available 06/03/2023 What Is Your Level Of Alcohol Consumption? None Information not available 06/03/2023 What Is Your Code Status? Full Code Information not available 06/03/2023 Where Do You Live? [facility] Information not available 06/03/2023 What Was The [...] Organization Details Recorded Time Tdap 6 completed [facility] 06/04/2023 12:23:34 Td(adult) unspecified formulation 8 completed [facility] 06/04/2023 12:23:50 pneumococcal polysaccharide PPV23 6 completed [facility] 06/04/2023 12:24:08 influenza, unspecified formulation 3 completed [facility] 06/04/2023 12:24:27 SARS-COV-2 (COVID-19) vaccine, UNSPECIFIED 1 completed [facility] 06/04/2023 12:24:41 SARS-COV-2 (COVID-19) vaccine, UNSPECIFIED 1 completed [facility] 06/04/2023 12:24:50 SARS-COV-2 (COVID-19) vaccine, UNSPECIFIED 1 completed [facility] 06/04/2023 12:24:59 Past Encounters Encounter ID Performer Location Encounter Start Date Encounter Closed Date Diagnosis/Indication Diagnosis SNOMED-CT Code Diagnosis ICD10 Code Diagnosis Note [id number] Bren Valero NP [address] [address] 06/03/2023 08:17:28 06/07/2023 10:25:32 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 4688655497 C80.1 rectosigmo id cancer with mets to liver and lungs with partial colectomy on chemochang e oxycodone 5 mg mild to mod pain, 10 mg mod to severe pain q 6 hours prn ( pt reports extreme pain and was using iv meds in hosp)dc percocet with liver diseasecon tcyclobenz aprine 10 mg po tiddexamet hasone 4 mg bid 2 days after chemoascor bic acid 500 mg po bidgabapen tin 300 mg po tidcholeca liferol 50 mcg po bidfu with dr beck outpt for chemo , nsg to call and see when next appt is for chemomonit or for sequelae, vitals Acute kidney injury 1466 9001 N17.9 JOHN resolved with fluids in hosp, hctz stoppedmon itor bmp weekly while heremonito r for s/s of dehydratio nmonitor bmp weekly while here Recurrent falls 35077259 2 R29.6 recurrent falls at homewhile in hosp felt due to syncope, dehydratio n and chemoCT head/spine neg for fxPT/OT treat and evalsuppor tive measures and safetymoni tor labs weekly and hydration status Asthenia 19763971 R53.1 felt very deconditio raquel in hosp and rec:PT OT eval and treat with rehab for strength, gait, balance, conditioni ng Tinea cruris 140913348 B 35.6 rash extensiveP kaylyn:nystat in powder topically tiddicfluc an 100 mg po daily x 4 more dosesclotr imazole betamethas one cream topcially bid to affected areainterd rywound consult Hypertensive disorder 38 191003 I10 metoprolol tartate 50 mg po bid hold SBP <90 HR <60captopr il 25 mg po bidmonitor bp, vitals Obstructiv e sleep apnea syndrome 54902696 G47.33 monitor resp status Congestive heart failure 31123819 I50.9 0-4 liters prn keep sat >90%monito r resp status, vitals, labs Obesity 130706183 E66.9 encourage good eating habitsweek ly wgtsdietic katiana consult for supportive diet and planmonito r Retention of urine 61192 4002 R33.9 retention of urine in hosp with foleyhad UTI resolved with ceftriaxon e x 7 days, however urine culture negremove jackson today, pvr q shift, sc > 350, reinsert jackson > 3 times sc, remove pvr if <350 x 3. Syncope 178222857 R55 found to be orthostati c with syncope in hospfelt resolved with fluids, no arrythmias foundateno lol changed to metoprolol in hospitalmo nitor Leukocytosis 230176614 D 72.829 felt rt steriods and tx with ceftriaxon e x 7 days with resolution monitor cbc weekly Aspartate transaminase level above reference range 6741546095 56768 R74.01 likely due to liver mets and hepatic steatosism onitor lfts weekly x 3 while in rehabavoid liver toxic meds/ pt on diflucanmo nitor closely Depressive disorder 3548 9007 F32.A sertraline 50 mg po dailymonit or Loose stool 405649593 R1 9.5 diphenoxyl ate-atropi ne 2.5/0.025 mg po qid prn loose stoolsmoni tor Candidiasis 98167883 B37 .9 minimal to no thrush noted on exam todaynysta tin susp po swish and spit qidalso on diflucanmo nitor Insomnia 379552348 G47.0 0 ambien 12.5 mg po qhsmonitor Chronic pain 25842679 G8 9.29 see mets cancerchan ge oxycodone 5 mg mild to mod pain, 10 mg mod to severe pain q 6 hours prn ( pt reports extreme pain and was using iv meds in hosp)dc percocet with liver disease [id number] Bren Valero NP [address] [address] 06/04/2023 16:56:47 06/07/2023 12:36:23 Herpes zoster 5871958 B02.9 shingles noted by wound team today with pain banding in stomach and vescicular blister like open areas to abd foldfacili ty precaution s with contact precaution s and no preg staff/fami lyacyclovi r 800 mg po 5 x /day x 10 daysalread y on gabapentin 300 mg po tid and oxycodone 10 mg q 6 hours prnfamily pt and staff educated on shinglesmo nitor [id number] Joselo Alonso MD [address] [address] 06/05/2023 14:38:30 06/08/2023 12:28:37 Malignant neoplasm of colon and/or rectum 888656485 C19 see HPIrectosi gmoid cancer s/p partial colectomy on chemothera pyLFTs felt secondary to probable metastatic spread to liverfollo wed [facility] te with concernsmo nitor for pain control now on oxycodone for pain controlwil l start oxycontin 20 mg bidcontinu e oxycodone 10 mg q 5-10 mg q 6 pro breakthrou gh 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 4126598271 C80.1 see above with recent elevated LFTsmonito r CMP on current antiviralc oordinate care with oncology Acute kidney injury 1466 9001 N17.8 hx colon resection with ARF appears secondary to dehydratio nmonitor fluid intake and renal functionno w off diureticre cintia on captopril Recurrent falls 88181490 2 R29.6 PT OT Eval and treatmonit or fall risk Asthenia 60966832 R53.1 PT OT eval and treatmonit or for improvemen t in functional ability and need for increased assist in community Hypertensive disorder 38 467400 I10 metoprolol 50 mg bidcaptopr il 25 mg bidcurrent ly elevated will increase metoprolol to 75 mg bid with parameters in placediscu ssed with nursing Congestive heart failure 18144409 I50.22 carrying dxno longer on HCTZmonito r respirator y and fluid status Depressive disorder 3548 9007 F33.8 zoloft 50 mg qdmonitor for effectpsyc h eval prn Insomnia 440166174 G47.0 0 ambien 12.5 mg qhsmonitor for effect Acute infe ctive cystitis 306301390 N30.00 treated with course of rocephinmo nitor for recurrent disease Herpes zoster 2790578 B0 2.9 question zoster outbreak left groinnow on acyclovir to complete courseprec autions in placemonit or to resolution on gabapentin 300 mg tid at baseline Edema of scrotum 1159172 0 N50.89 see abovemonit or for impairment of circulatio n to tissueto ED for acute decompensa tion Candidiasis of skin 4988 3006 B37.2 severe candidiasi s not improving on nystatin powderwith erythema, weeping edema and maceration of skinstart diflucan 150 mg qd x 10 dayswound care to follow with continued dressing changes in skin folds [id number] Bren Valero NP [address] [address] 06/08/2023 12:31:40 06/16/2023 11:13:19 Malignant neoplasm of colon and/or rectum 427640373 C19 see HPI for hxrectosig moid cancer s/p partial colectomy on chemothera pyLFTs felt secondary to probable metastatic spread to liverfollo wed [facility] outptupdat e with concernsmo nitor for pain control now on oxycodone for pain controlcon toxycontin 20 mg bidoxycodo ne 10 mg q 5-10 mg q 6 pro breakthrou ghcycloben zaprine 10 mg po tiddexamet hasone 4 mg bid 2 days after chemoascor bic acid 500 mg po bidgabapen tin 300 mg po tidcholeca lciferol 50 mcg po bidfu with dr beck outpt for chemo , nsg to call and see when next appt is for chemo, roughly around 4/ per pt. 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 2965147437 C80.1 see above with recent elevated LFTsmonito r CMP on current antiviralc oordinate care with oncology Acute kidney injury 1466 9001 N17.8 hx colon resection with ARF appears secondary to dehydratio navoid nephrotoxi c medsccmoni tor fluid intake and renal functionno w off diureticre cintia on captoprilm onitor labs cbc and bmp abd liver profile weekly Asthenia 17927373 R53.1 PT OT eval and treatmonit or for improvemen t in functional ability and need for increased assist in community Recurrent falls 13308782 2 R29.6 PT OT Eval and treatmonit or fall risk Hypertensive disorder 38 951748 I10 contcaptop ril 25 mg bidmetopro lol to 75 mg bid with parameters in place(incr eased on 06/04) hr decreasing with slightly high at times still 80-90s.dis cussed with nursing Congestive heart failure 41918188 I50.22 carrying dxno longer on HCTZadd bnp to labsmonito r respirator y and fluid status Acute infe ctive cystitis 874488842 N30.00 resolvedtr eated with course of rocephin in hospmonito r for recurrent disease Depressive disorder 3548 9007 F33.8 contzoloft 50 mg qdmonitor for effectpsyc h eval prn Insomnia 337856284 G47.0 0 contambien 12.5 mg qhsmonitor for effect Herpes zoster 8830040 B0 2.9 question zoster outbreak left groinnow on acyclovir to complete courseprec autions in placemonit or to resolution gabapentin 300 mg tid at baselineox ycontin 20 mg bidoxycodo ne 10 mg q 5-10 mg q 6 prn breakthrou gh Candidiasis of skin 4988 3006 B37.2 severe candidiasi s not improving on nystatin powder alonewith erythema, weeping edema and maceration of skindifluc an 150 mg qd x 10 days total extended hereinterd rypossibly related to shingles alsowound care to follow with continued dressing changes in skin folds Edema of scrotum 9546821 0 N50.89 see abovemonit or for impairment of circulatio n to tissueto ED for acute decompensa tion Health Concerns Section Related Observation LastModified by Organization Detai ls LastModified Time None Recorded Concern Status LastModified by Organization Details LastModified Time None Recorded Advance Directives Directive N: Payers Encounter Date Sequence Insurance Name Policy Number Policy Ochoa Covered Member ID Ochoa Member ID Guarantor Name 06/03/2023 1 [employer] [id number] Jeffery Marcus [id number] Jeffery Marcus 06/04/2023 1 [employer] [id number] Jeffery Landisa [id number] Jeffery Landisa 06/05/2023 1 [employer] [id number] Jeffery Landisa [id number] Jeffery Landisa 06/08/2023 1 [employer] [id number] Jeffery Marcus [id number] Jeffery Marcus Notes Date Note Type Note Provider Name and Address Organization Details Recorded Time 06/03/19 24 text/htm l Pt is seen for an initial visit. 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 Beck, BRANDON, CHF, obesity, HTN. Jeffery a 72 yo male with pmh above who is admitted to [facility] care for rehab and continued care after hospitalization at [facility] from 05/22/-06/02/23 initially presenting with fall, weakness, [...] days ago and also follows with [facility]. He is unsure of next appt with Dr. Beck and will have nsg call for appt today. Lungs diminshed throughtout, [...] on diflucan. MOLST:Full code 06/03 23 signedBIMS MOLST high fall risk Bren Valero, BK [address], [address], [place], [address], [facility] 06/03/2023 10:48:27 06/04/19 24 text/htm l Pt is seen for an acute visit for nursing concern of shingles per wound PA. 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 Beck, BRANDON, CHF, obesity, HTN. Jeffery a 72 yo male with pmh above who is admitted to [facility] for rehab and continued care after hospitalization at [facility] from -06/02/23 initially presenting with fall, weakness, and dizziness [...] is alert and awake and shows this [employer] his panus with multiple vesicular open areas [...] 23 signedBIMS MOLST high fall risk Bren Valero, [employer] [address], [address], [place], [address], [facility] [employer] 06/04/2023 17:34:47 06/05/19 24 text/htm l Patient is a 72 yo male admit from hospital after presenting with weakness s/p fall. Found to be in ARF with elevated wbc count and UTI complicated by rectosigmoid cancer s/p partial colectomy on chemotherapy, concern for dehydration. Treated with rocephin and IVF. Elevated LFTs felt secondary to probable metastatic spread to liver. Followed at [facility] for above CA, now with chemo at [facility] Of note since arrival at facility patient dx with shingles and started on acyclovir present and questions answered PMH significant forcolon CA s/p partial colectomychfhtnobesityOSA admit to facility for continued care and therapy to eval and treat Joselo Alonso MD [address], [address], [place], [address], [facility] [employer] 06/05/2023 15:30:47 06/08/19 24 text/htm l Pt is seen for acute rounding visit today. 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 Beck, BRANDON, CHF, obesity, HTN. Jeffery is a 72 yo male admitted to [facility] from hospital 05/22-06/01 after presenting with weakness s/p fall. Found to be in ARF with leukocytosis felt due to UTI complicated by rectosigmoid cancer s/p partial colectomy on chemotherapy, and concern for dehydration. While in the hosp he tx with rocephin and IVF. Elevated LFTs felt likely to metastatic spread to liver. Followed at [facility] for above CA, now with chemo at [facility]. On 06/03 pt diagnosed with shingles and [...] sitting up in bed in NAD. He is scrolling through the pictures on his phone stating he would like to share some pictures. This [employer] waited over 10 minutes for pt to show his picture on his phone which he cannot bring up regarding his wound. He refuses to left this [employer] INS[employer] see his wound today. He reports standing and leg exercises daily with therapy but is too weak to do much more. He also reports pain 5/10 which is tolerable today on current pain regimen. Lungs clear and heart rate reg. No new concerns today. MOLST:Full code 4/4 24 signedBITN MOLST high fall risk Bren Valero, BK [address], [address], [place], [address], [facility] 06/08/2023 14:09:08
== END 2024-04-26 15:51 | disposition home or self-care (01) ==
PROVIDERS: PCP Internal Medicine; Visit Provider Internal Medicine
DX: C18.9 Malignant neoplasm of colon, unspecified (principal); C78.7 Secondary malignant neoplasm of liver and intrahepatic bile duct; I10 Essential (primary) hypertension; I73.9 Peripheral vascular disease, unspecified; M54.50 Low back pain, unspecified; R35.0 Frequency of micturition

== ENCOUNTER → 2024-04-26 14:30 | Outpatient (BNVA) | payer BC, MEDICARE, SELFPAY | PROVIDERS: PCP Internal Medicine; Visit Provider Internal Medicine | DX: C18.9 Malignant neoplasm of colon, unspecified (principal); C78.7 Secondary malignant neoplasm of liver and intrahepatic bile duct; I10 Essential (primary) hypertension; I73.9 Peripheral vascular disease, unspecified; M54.50 Low back pain, unspecified; R35.0 Frequency of micturition | CPT/HCPCS: 96127 ==

== ENCOUNTER 2024-05-24 13:37 | Outpatient (REF) | payer BC, MEDICARE, SELFPAY ==
--- NOTE | ~2024-05-24 | XR_ITS ---
EXAMINATION: XR SHOULDER, LEFT CLINICAL INFORMATION: M25.512 - Pain in left shoulder COMPARISON: None available. TECHNIQUE: AP external rotation, Grashey, scapular Y, and axillary views of the left shoulder. FINDINGS: Sclerosis of the articular surface of the acromioclavicular joint and glenohumeral joint. No acute cortical disruption or malalignment. No lytic or blastic lesions. XR/XR shoulder LT min 2V IMPRESSION: [id number]-odnpfova degenerative changes, left shoulder. Electronically signed by: Carmelo Read MD 05/24/2024 03:25 PM EDT
--- NOTE | ~2024-05-24 | US_ITS ---
CLINICAL HISTORY: R35.0 - Frequency of micturition US prostate and bladder Comparison: None Findings: The urinary bladder is unremarkable. Prevoid volume 246 mL. Post void volume 159 mL. Right ureteral jet visualized. Left ureteral jet not visualized. Prostate is never well visualized. Rounded structure is measured in the lower pelvis. This structure measures 6.1 x 4.6 x 5.9 cm. It is heterogeneous without specific focal nodule. Volume of presumed prostate 87.9 mL. Impression: Prostate heterogeneous and enlarged but not well seen Postvoid residual volume 159 mL This document has been electronically signed by: Bharathi Allen MD on 05/24/2024 19:10:14
--- NOTE | ~2024-05-24 | XR_ITS ---
EXAMINATION: XR LUMBOSACRAL SPINE CLINICAL INFORMATION: M54.50 - Low back pain, unspecified COMPARISON: None available. TECHNIQUE: Three views of the lumbosacral spine. FINDINGS: Multilevel endplate sclerosis and marginal osteophyte formation more conspicuous at L5-S1. Bilateral facet joint hypertrophy from L3-4 to L5-S1. No acute cortical disruption or gross malalignment. Calcified plaques throughout the aorta. Degenerative changes in the left hip. Vascular calcifications in the splenic artery. XR/XR lumbar spine 2-3V IMPRESSION: Multilevel thoracolumbar spondylosis. Atherosclerosis disease. Electronically signed by: Carmelo Read MD 05/24/2024 03:21 PM EDT
== END 2024-05-24 13:38 | disposition home or self-care (01) ==
LOC: HO.US 13:37
PROVIDERS: PCP Internal Medicine; Visit Provider Internal Medicine
DX: R35.0 Frequency of micturition (principal); M54.50 Low back pain, unspecified; M25.512 Pain in left shoulder
CPT/HCPCS: 72100; 73030; 76857

== ENCOUNTER → 2024-05-24 13:42 | Outpatient (BNV) | payer BC, MEDICARE, SELFPAY | PROVIDERS: PCP Internal Medicine; Visit Provider Radiology Diagnostic Radiology | DX: M19.012 Primary osteoarthritis, left shoulder (principal); M47.895 Other spondylosis, thoracolumbar region; N40.1 Benign prostatic hyperplasia with lower urinary tract symptoms | CPT/HCPCS: 72100; 73030; 76857 ==

== ENCOUNTER 2024-06-20 15:32 | Outpatient (AMB) | payer BC, MEDICARE, SELFPAY ==
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
[2024-06-20 15:51] VITALS: BP 140/80; PULSE 112; TEMP 36.6; O2SAT 92; BMI 39.3
--- OUTSIDE RECORDS SUMMARY | 2024-06-20 18:26 | XMS_ITS | Clinical Summary ---
Author Organization [facility] Address [address] [place] [address] Care Team Providers Care Operations Planner Name Role Phone Pcp, No Primary Care Provider Unavailabl e Allergies Active Allergy Reactions Criticality Noted Date Comments Aspirin Hives Medium 11/24/2022 Medications gabapentin (NEURONTIN) 300 MG capsuleIndicatio ns:Pain in left ankle and joints of left foot TAKE 1 CAPSULE BY MOUTH THREE TIMES A DAY 270 capsule 02/22/2024 Active [facility] Vitamin C 500 MG tabletIndication s:Nondisplaced fracture of fifth metatarsal bone, unspecified foot, initial encounter for closed fracture TAKE 2 TABLETS BY MOUTH EVERY DAY 30 tablet 3 02/22/2024 Active Cholecalciferol (D3) 50 MCG (1999 UT) TabIndications:N ondisplaced fracture of fifth metatarsal bone, unspecified foot, initial encounter for closed fracture TAKE 2 TABLETS (4,000 UNITS TOTAL) BY MOUTH DAILY. 180 tablet 3 02/22/2024 Active Social History Tobacco Use Types Packs/Day Years Used Date Smoking Tobacco: Never Assessed Sex and Gender Information Value Date Recorded Sex Assigned at Male 11/24/2022 7:02 AM EDT Legal Sex Male 10:17 AM EDT Gender Identity Male 11/24/2022 7:02 AM EDT Sexual Orientation Choose not to disclose 2022 7:02 AM EDT Plan of Treatment Health Maintenance Due Date Last Done Comments Hepatitis C Virus Screening 1950 DTaP/Tdap/Td Vaccines (1 - Tdap) 12/27/1967 Colonoscopy 1993 Pneumococcal Vaccines 50+ (1 of 1 - PCV) 1998 Zoster (Shingles) Vaccine (1 of 2) 1998 Influenza Vaccine 09/30/2023 COVID-19 Vaccine ( - 2023-2 5 season) 2023 RSV Vaccine 60 years and old er and Patients (1 - 1-dose 75+ series) 12/27/2023 Hepatitis B Vaccines Aged Out No long er eligible based on patient's age to complete this topic Insurance MEDICARE PART A & B [facility] Care Teams Operations Planner Relationship Specialty Start Date End Date Pcp, No PCP - General General Medicine 11/23/22
--- OUTSIDE RECORDS SUMMARY | 2024-06-20 18:26 | XMS_ITS | Data Portability ---
Author Organization [facility] [employer] [facility] (formerly [facility])[3], Main Office Address [address], [address] [place] [address] Care Team Providers Care Palletiser Operator Name Role Phone BEREKET SURESH - 2ND FLOOR OTHER BERTHA BARRY Primary Care Provider Assessment No assessment recorded. Plan of Treatment Reminders Order Date Submit Date Provider Last Modified By Organization Details Last Modified Time Details Appointments None recorded. Lab None recorded. Referral None recorded. Procedures None recorded. Surgeries None recorded. Imaging None recorded. Medication Orders oxycodone 5 mg tablet 2023 024 [facility] , [address] [place] [address], [address], 4 08:37:48 Ambien CR 12.5 mg tablet,ext ended release 2023 024 [facility] , [address] [place] [address], [address], 4 08:37:48 Patient TargetsNo targets recorded. Patient Instructions Encounter Date Encounter Id Patient Instructions Last Modified By Organization Details Last Modified Time 06/04/2023 [id number] shingles: care instructions Not available 06/04/2023 17:34:45 Reason for Referral None Reported. Problems Name Problem SNOMED Code Status Onset Date Resolution Date Notes Provider Name and Address Organization Details Recorded Time 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 Active 2023 Bren Valero NP [address], [address], [place], [address] , [facility] 4 08:59:38 Acute kidney injury 06227459 Active 2023 Bren Valero NP [address], [address], [place], [address], [facility] 4 08:59:46 Tinfelix singletary 636240338 Active 2023 Bren Valero NP [address], [address], [place], [address], [facility] 4 09:00:05 Obstructive sleep apnea syndrome 58539476 Active 2023 Bren Valero NP [address], [place], [address], [facility] 4 09:00:33 Obesity 103895702 Active 2023 Bren Valero NP [address], [place], [address], [facility] 4 09:00:40 Congestive heart failure 42634079 Active 2023 Bren Valero NP [address], [place], [address], [facility] 4 09:00:47 Recurrent falls 522996821 Active 2023 Bren Valero NP [address], [address], [place], [address], [facility] 4 09:00:54 Hypertensiv e disorder 96986715 Active 2023 Bren Valero NP [address], [place], [address], [facility] 4 09:01:04 Asthenia 38589881 Active 2023 Bren Valero NP [address], [place], [address], [facility] 4 09:04:03 Retention of urine 282903231 Active 2023 Bren Valero NP [address], [place], [address], [facility] 4 09:07:12 Syncope 592902173 Active 2023 Bren Valero NP [address], [address], [place], [address], [facility] 4 09:09:13 Leukocytosi s 452706887 Active 2023 Bren Valreo NP [address], [address], [place], [address], [facility] 4 09:13:27 Aspartate transaminas e level above reference range 9411155910712 08 Active 2023 Bren Valero NP [address], [address], [place], [address], [facility] 4 09:15:25 Loose stool 253686854 Active 2023 Bren Valero NP [address], [address], [place], [address], [facility] 4 09:24:36 Candidiasis 25465012 Active 2023 Bren Valero NP [address], [address], [place], [address], [facility] 4 09:28:02 Insomnia 070517084 Active 2023 Bren Valero NP [address], [address], [place], [address], [facility] 4 10:17:35 Malignant neoplasm of colon and/or rectum 705606428 Active 2023 Joselo Alonso MD [address], [address], [place], [address], [facility] 4 14:45:45 Problem Notes None recorded. Medical Equipment None Reported. Allergies Allergen ID Allergen Name Allergen Category Reaction Reaction Severity Criticality Documentation Date Start Date Code Code System Note Provider Name and Address Organization Details Recorded Time 16733 aspirin medicatio n other Not available unabletoasse [...] mm[Hg] 84 mm[Hg] Bren Valero NP [address], [address] , [facility] 06/03/2023 08:19:07 Date Recorded Heart rate Respiratory rate Body temperature Oxygen saturation Oxygen saturation in Arterial blood by Pulse oximetry Systolic blood pressure Diastolic blood pressure Provider Name and Address Organization Details Last Updated DateTime 4 100 /min 18 /min 97.6 [degF] 93 % 93 % 149 mm[Hg] 83 mm[Hg] Bren Valero NP [address] [facility] [address], [place], [address], [facility] 4 17:23:47 Date Recorded Heart rate Respiratory rate Body temperature Oxygen saturation Oxygen saturation in Arterial blood by Pulse oximetry Systolic blood pressure Diastolic blood pressure Provider Name and Address Organization Details Last Updated DateTime 4 98 /min 16 /min 97.9 [degF] 94 % 94 % 149 mm[Hg] 92 mm[Hg] Bren Valero NP [address], [address], [place], [address], [facility] 4 12:33:05 Date Recorded Systolic blood pressure Diastolic blood pressure Provider Name and Address Organization Details Last Updated DateTime 06/05/2023 177 mm[Hg] 100 mm[Hg] Joselo Alonso MD [address], [address], [place], [address], [facility] 06/05/2023 14:39:02 Social History Question Answer Notes LastModified by Organizat ion Details LastModified Time Tobacco Smoking Status Former Smoker Bren Valero NP [address], [address], [place], [address], [facility] 06/03/2023 10:22:59 Do You Have An Advance Directive? No Information not available 06/03/2023 What Is Your Level Of Alcohol Consumption? None Information not available 06/03/2023 What Is Your Code Status? Full Code Information not available 06/03/2023 Where Do You Live? [facility] Information not available 06/03/2023 What Was [...] Tdap 6 completed [facility] 06/04/2023 12:23:34 Td(adult) unspecified formulation 8 completed [facility] 06/04/2023 12:23:50 pneumococcal polysaccharide PPV23 6 completed [facility] 06/04/2023 12:24:08 influenza, unspecified formulation 3 completed [facility] 06/04/2023 12:24:27 SARS-COV-2 (COVID-19) vaccine, UNSPECIFIED 1 completed [facility] 06/04/2023 12:24:41 SARS-COV-2 (COVID-19) vaccine, UNSPECIFIED 1 completed [facility] 06/04/2023 12:24:50 SARS-COV-2 (COVID-19) vaccine, UNSPECIFIED 1 completed [facility] 06/04/2023 12:24:59 Past Encounters Encounter ID Performer Location Encounter Start Date Encounter Closed Date Diagnosis/Indication Diagnosis SNOMED-CT Code Diagnosis ICD10 Code Diagnosis Note [id number] Bren Valero NP [address] [address] 06/03/2023 08:17:28 06/07/2023 10:25:32 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 7773280082 C80.1 rectosigmo id cancer with mets to [...] liferol 50 mcg po bidfu with dr [facility] outpt for chemo , nsg to call and see when next appt is for chemomonit or for sequelae, vitals Acute kidney injury 1466 9001 N17.9 JOHN resolved with fluids in hosp, hctz stoppedmon itor bmp weekly while heremonito r for s/s of dehydratio nmonitor bmp weekly while here Recurrent falls 69102490 2 R29.6 recurrent falls at homewhile in hosp felt due to syncope, dehydratio n and chemoCT head/spine neg for fxPT/OT treat and evalsuppor tive measures and safetymoni tor labs weekly and hydration status Asthenia 08111725 R53.1 felt very deconditio raquel in hosp and rec:PT OT eval and treat with rehab for strength, gait, balance, conditioni ng Tinea cruris 860499816 B 35.6 rash extensiveP kaylyn:nystat in powder topically tiddicfluc an 100 mg po daily x 4 more dosesclotr imazole betamethas one cream topcially bid to affected areainterd rywound consult Hypertensive disorder 38 520043 I10 metoprolol tartate 50 mg po bid hold SBP <90 HR <60captopr il 25 mg po bidmonitor bp, vitals Obstructiv e sleep apnea syndrome 23330939 G47.33 monitor resp status Congestive heart failure 18948261 I50.9 0-4 liters prn keep sat >90%monito r resp status, vitals, labs Obesity 861128659 E66.9 encourage good eating habitsweek ly wgtsdietic katiana consult for supportive diet and planmonito r Retention of urine 70866 4002 R33.9 retention of urine in hosp with foleyhad UTI resolved with ceftriaxon e x 7 days, however urine culture negremove jackson today, pvr q shift, sc > 350, reinsert jackson > 3 times sc, remove pvr if <350 x 3. Syncope 413445354 R55 found to be orthostati c with syncope in hospfelt resolved with fluids, no arrythmias foundateno lol changed to metoprolol in hospitalmo nitor Leukocytosis 677772779 D 72.829 felt rt steriods and tx with ceftriaxon e x 7 days with resolution monitor cbc weekly Aspartate transaminase level above reference range 5813909706 37508 R74.01 likely due to liver mets and hepatic steatosism onitor lfts weekly x 3 while in rehabavoid liver toxic meds/ pt on diflucanmo nitor closely Depressive disorder 3548 9007 F32.A sertraline 50 mg po dailymonit or Loose stool 431969851 R1 9.5 diphenoxyl ate-atropi ne 2.5/0.025 mg po qid prn loose stoolsmoni tor Candidiasis 55383648 B37 .9 minimal to no thrush noted on exam todaynysta tin susp po swish and spit qidalso on diflucanmo nitor Insomnia 922083617 G47.0 0 ambien 12.5 mg po qhsmonitor Chronic pain 33127404 G8 9.29 see mets cancerchan ge oxycodone 5 mg mild to mod pain, 10 mg mod to severe pain q 6 hours prn ( pt reports extreme pain and was using iv meds in hosp)dc percocet with liver disease [id number] Bren Valero NP [address] [address] 06/04/2023 16:56:47 06/07/2023 12:36:23 Herpes zoster 5313074 B02.9 shingles noted by wound team today [...] pt and staff educated on shinglesmo nitor [id number] Joselo Alonso MD [address] [address] 06/05/2023 14:38:30 06/08/2023 12:28:37 Malignant neoplasm of colon and/or rectum 403770963 C19 see HPIrectosi gmoid cancer s/p partial colectomy on chemothera pyLFTs felt secondary to probable metastatic spread to liverfollo [facility] with concernsmo nitor for pain control now on oxycodone for pain controlwil l start oxycontin 20 mg bidcontinu e oxycodone 10 mg q 5-10 mg q 6 pro breakthrou gh 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 9587597419 C80.1 see above with recent elevated LFTsmonito r CMP on current antiviralc oordinate care with oncology Acute kidney injury 1466 9001 N17.8 hx colon resection with ARF appears secondary to dehydratio nmonitor fluid intake and renal functionno w off diureticre cintia on captopril Recurrent falls 23934261 2 R29.6 PT OT Eval and treatmonit or fall risk Asthenia 44750959 R53.1 PT OT eval and treatmonit or for improvemen t in functional ability and need for increased assist in community Hypertensive disorder 38 872412 I10 metoprolol 50 mg bidcaptopr il 25 mg bidcurrent ly elevated will increase metoprolol to 75 mg bid with parameters in placediscu ssed with nursing Congestive heart failure 39453913 I50.22 carrying dxno longer on HCTZmonito r respirator y and fluid status Depressive disorder 3548 9007 F33.8 zoloft 50 mg qdmonitor for effectpsyc h eval prn Insomnia 071245729 G47.0 0 ambien 12.5 mg qhsmonitor for effect Acute infe ctive cystitis 203750690 N30.00 treated with course of rocephinmo nitor for recurrent disease Herpes zoster 6510255 B0 2.9 question zoster outbreak left groinnow on acyclovir to complete courseprec autions in placemonit or to resolution on gabapentin 300 mg tid at baseline Edema of scrotum 2914925 0 N50.89 see abovemonit or for impairment of circulatio n to tissueto ED for acute decompensa tion Candidiasis of skin 4988 3006 B37.2 severe candidiasi s not improving on nystatin powderwith erythema, weeping edema and maceration of skinstart diflucan 150 mg qd x 10 dayswound care to follow with continued dressing changes in skin folds [id number] Bren Valero NP [address] [address] 06/08/2023 12:31:40 06/16/2023 11:13:19 Malignant neoplasm of colon and/or rectum 546289831 C19 see HPI for hxrectosig moid cancer s/p partial colectomy on chemothera pyLFTs felt secondary to probable metastatic spread to liverfollo wed [facility] outptupdat e with concernsmo nitor for pain [...] tor for relief 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 7548351702 C80.1 see above with recent elevated LFTsmonito r CMP on current antiviralc oordinate care with oncology Acute kidney injury 1466 9001 N17.8 hx colon resection with ARF appears secondary to dehydratio navoid nephrotoxi c medsccmoni tor fluid intake and renal functionno w off diureticre cintia on captoprilm onitor labs cbc and bmp abd liver profile weekly Asthenia 44214642 R53.1 PT OT eval and treatmonit or for improvemen t in functional ability and need for increased assist in community Recurrent falls 68241425 2 R29.6 PT OT Eval and treatmonit or fall risk Hypertensive disorder 38 183960 I10 contcaptop ril 25 mg bidmetopro lol to 75 mg bid with parameters in place(incr eased on 06/04) hr decreasing with slightly high at times still 80-90s.dis cussed with nursing Congestive heart failure 46247844 I50.22 carrying dxno longer on HCTZadd bnp to labsmonito r respirator y and fluid status Acute infe ctive cystitis 485075226 N30.00 resolvedtr eated with course of rocephin in hospmonito r for recurrent disease Depressive disorder 3548 9007 F33.8 contzoloft 50 mg qdmonitor for effectpsyc h eval prn Insomnia 752169017 G47.0 0 contambien 12.5 mg qhsmonitor for effect Herpes zoster 8389305 B0 2.9 question zoster outbreak left groinnow [...] changes in skin folds Edema of scrotum 0621202 0 N50.89 see abovemonit or for impairment [...] Guarantor Name 06/03/2023 1 [employer] [id number] Jeffery Marcus [id number] Jeffery Marcus 06/04/2023 1 [employer] [id number] Jeffery Landisa [id number] Jeffery Landisa 06/05/2023 1 [employer] [id number] Jeffrey Landisa [id number] Jeffery Landisa 06/08/2023 1 [employer] [id number] Jeffery Marcus [id number] Jeffery Marcus Notes Date Note Type Note [...] with pmh above who is admitted to [facility] for rehab and continued care after hospitalization at [facility] from 05/22/-06/02/23 initially presenting with fall, weakness, [...] days ago and also follows with [facility]. He is unsure of next appt with [...] high fall risk Bren Valero, BK [address], [address], [place], [address], [facility] 06/03/2023 10:48:27 06/04/19 24 text/htm l Pt is seen for an acute visit for nursing concern of shingles per wound PA. 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 Beck, BRANDON, CHF, obesity, HTN. Jeffery a 72 yo male with pmh above who is admitted to [facility] for rehab and continued care after hospitalization at [facility] from -06/02/23 initially presenting with fall, weakness, [...] is alert and awake and shows this [employer] his panus with multiple vesicular open areas [...] signedBIMS MOLST high fall risk Bren Valero, [employer] [address], [address], [place], [address], [facility] [employer] 06/04/2023 17:34:47 06/05/19 24 text/htm l Patient is a 72 yo male admit from hospital after presenting with weakness s/p fall. Found to be in ARF with elevated wbc count and UTI complicated by rectosigmoid cancer s/p partial colectomy on chemotherapy, concern for dehydration. Treated with rocephin and IVF. Elevated LFTs felt secondary to probable metastatic spread to liver. Followed at [facility] for above CA, now with chemo at [facility] Of note since arrival at facility patient dx with shingles and started on acyclovir present and questions answered PMH significant forcolon CA s/p partial colectomychfhtnobesityOSA admit to facility for continued care and therapy to eval and treat Joselo Alonso MD [address], [address], [place], [address], [facility] [employer] 06/05/2023 15:30:47 06/08/19 24 text/htm l Pt is seen for acute rounding visit today. 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 Beck, BRANDON, CHF, obesity, HTN. Jeffery is a 72 yo male admitted to [facility] from hospital 05/22-06/01 after presenting with weakness s/p fall. Found to be in ARF with leukocytosis felt due to UTI complicated by rectosigmoid cancer s/p partial colectomy on chemotherapy, and concern for dehydration. While in the hosp he tx with rocephin and IVF. Elevated LFTs felt likely to metastatic spread to liver. Followed at [facility] for above CA, now with chemo at [facility]. On 06/03 pt diagnosed with shingles and [...] would like to share some pictures. This [employer] waited over 10 minutes for pt to show his picture on his phone which he cannot bring up regarding his wound. He refuses to left this [employer] see his wound today. He reports standing and leg exercises daily with therapy but is too weak to do much more. He also reports pain 5/10 which is tolerable today on current pain regimen. Lungs clear and heart rate reg. No new concerns today. MOLST:Full code 4/4 24 signedBIOH MOLST high fall risk Bren Valero, BK [address], [address], [place], [address], [facility] 06/08/2023 14:09:08
== END 2024-06-20 17:11 | disposition home or self-care (01) ==
LOC: HO.HMCH 15:32
PROVIDERS: PCP Internal Medicine
DX: R20.0 Anesthesia of skin (principal); C18.9 Malignant neoplasm of colon, unspecified; C78.7 Secondary malignant neoplasm of liver and intrahepatic bile duct; R44.1 Visual hallucinations; R44.0 Auditory hallucinations; I10 Essential (primary) hypertension; R60.0 Localized edema; R29.898 Other symptoms and signs involving the musculoskeletal system; R07.9 Chest pain, unspecified; H04.123 Dry eye syndrome of bilateral lacrimal glands

== ENCOUNTER → 2024-06-20 15:32 | Outpatient (BNVA) | payer BC, MEDICARE, SELFPAY | PROVIDERS: PCP Internal Medicine ==

== ENCOUNTER 2024-06-26 14:35 | Outpatient (REF) | payer BC, MEDICARE, SELFPAY ==
--- OUTSIDE RECORDS SUMMARY | 2024-06-26 17:27 | XMS_ITS | Data Portability ---
Author Organization [facility] [employer] [facility], Main Office Address [address] [facility] [address] [place] [address] Care Team Providers Care Pulper Name Role Phone BEREKET SURESH - 2ND FLOOR OTHER BERTHA BARRY Primary Care Provider Assessment No assessment recorded. Plan of Treatment Reminders Order Date Submit Date Provider Last Modified By Organization Details Last Modified Time Details Appointments None recorded. Lab None recorded. Referral None recorded. Procedures None recorded. Surgeries None recorded. Imaging None recorded. Medication Orders oxycodone 5 mg tablet 2023 024 [facility] , [address] [place] [address], [address], 4 08:37:48 Ambien CR 12.5 mg tablet,ext ended release 2023 024 [facility] , [address] [place] [address], [address], 4 08:37:48 Patient TargetsNo targets recorded. Patient Instructions Encounter Date Encounter Id Patient Instructions Last Modified By Organization Details Last Modified Time 06/04/2023 [id number] shingles: care instructions Not available 06/04/2023 17:34:45 Reason for Referral None Reported. Problems Name Problem SNOMED Code Status Onset Date Resolution Date Notes Provider Name and Address Organization Details Recorded Time 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 Active 2023 Bren Valero NP [address] [facility], [address], [place], [address] , [facility] [employer] 4 08:59:38 Acute kidney injury 48093018 Active 2023 Bren Valero NP [address], [address], [place], [address], [facility] 4 08:59:46 Tinfelix singletary 738143200 Active 2023 Bren Valero NP [address], [address], [place], [address], [facility] 4 09:00:05 Obstructive sleep apnea syndrome 43159882 Active 2023 Bren Valero NP [address], [address], [place], [address], [facility] 4 09:00:33 Obesity 087985021 Active 2023 Bren Valero NP [address], [address], [place], [address], [facility] 4 09:00:40 Congestive heart failure 09894970 Active 2023 Bren Valero NP [address], [address], [place], [address], [facility] 4 09:00:47 Recurrent falls 186057878 Active 2023 Bren Valero NP [address], [address], [place], [address], [facility] 4 09:00:54 Hypertensiv e disorder 67848252 Active 2023 Bren Valero NP [address], [address], [place], [address], [facility] 4 09:01:04 Asthenia 27202122 Active 2023 Bren Valero NP [address], [address], [place], [address], [facility] 4 09:04:03 Retention of urine 324528099 Active 2023 Bren Valero NP [address], [address], [place], [address], [facility] 4 09:07:12 Syncope 796055486 Active 2023 Bren Valero NP [address] [facility], [address], [place], [address], [facility] 4 09:09:13 Leukocytosi s 534875550 Active 2023 Bren Valero NP [address] [facility], [address], [place], [address], [facility] 4 09:13:27 Aspartate transaminas e level above reference range 8388422191273 08 Active 2023 Bren Valero NP [address] [facility], [address], [place], [address], [facility] 4 09:15:25 Loose stool 918009604 Active 2023 Bren Valero NP [address] [facility], [address], [place], [address], [facility] 4 09:24:36 Candidiasis 67340744 Active 2023 Bren Valero NP [address] [facility], [address], [place], [address], [facility] 4 09:28:02 Insomnia 123436352 Active 2023 Bren Valero NP [address] [facility], [address], [place], [address], [facility] 4 10:17:35 Malignant neoplasm of colon and/or rectum 919697088 Active 2023 Joselo Alonso MD [address] [facility], [address], [place], [address], [facility] 4 14:45:45 Problem Notes None recorded. Medical Equipment None Reported. Allergies Allergen ID Allergen Name Allergen Category Reaction Reaction Severity Criticality Documentation Date Start Date Code Code System Note Provider Name and Address Organization Details Recorded Time 74177 aspirin medicatio n other Not available unabletoasse [...] mm[Hg] 84 mm[Hg] Bren Valero NP [address], [address] , [facility] 06/03/2023 08:19:07 Date Recorded Heart rate Respiratory rate Body temperature Oxygen saturation Oxygen saturation in Arterial blood by Pulse oximetry Systolic blood pressure Diastolic blood pressure Provider Name and Address Organization Details Last Updated DateTime 4 100 /min 18 /min 97.6 [degF] 93 % 93 % 149 mm[Hg] 83 mm[Hg] Bren Valero NP 38 [facility] [address], [place], [address], [facility] 4 17:23:47 Date Recorded Heart rate Respiratory rate Body temperature Oxygen saturation Oxygen saturation in Arterial blood by Pulse oximetry Systolic blood pressure Diastolic blood pressure Provider Name and Address Organization Details Last Updated DateTime 4 98 /min 16 /min 97.9 [degF] 94 % 94 % 149 mm[Hg] 92 mm[Hg] Bren Valero NP [address] [facility], [address], [place], [address], [facility] 4 12:33:05 Date Recorded Systolic blood pressure Diastolic blood pressure Provider Name and Address Organization Details Last Updated DateTime 06/05/2023 177 mm[Hg] 100 mm[Hg] Joselo Alonso MD [address] [facility], [address], [place], [address], [facility] 06/05/2023 14:39:02 Social History Question Answer Notes LastModified by Organizat ion Details LastModified Time Tobacco Smoking Status Former Smoker Bren Valero NP [address] [facility], [address], [place], [address], [facility] 06/03/2023 10:22:59 Do You Have An Advance Directive? No Information not available 06/03/2023 What Is Your Level Of Alcohol Consumption? None Information not available 06/03/2023 What Is Your Code Status? Full Code Information not available 06/03/2023 Where Do You Live? [facility] Information not available 06/03/2023 What Was [...] Organization Details Recorded Time Tdap 6 completed [facility] 06/04/2023 12:23:34 Td(adult) unspecified formulation 8 completed [facility] 06/04/2023 12:23:50 pneumococcal polysaccharide PPV23 6 completed [facility] 06/04/2023 12:24:08 influenza, unspecified formulation 3 completed [facility] 06/04/2023 12:24:27 SARS-COV-2 (COVID-19) vaccine, UNSPECIFIED 1 completed [facility] 06/04/2023 12:24:41 SARS-COV-2 (COVID-19) vaccine, UNSPECIFIED 1 completed [facility] 06/04/2023 12:24:50 SARS-COV-2 (COVID-19) vaccine, UNSPECIFIED 1 completed [facility] 06/04/2023 12:24:59 Past Encounters Encounter ID Performer Location Encounter Start Date Encounter Closed Date Diagnosis/Indication Diagnosis SNOMED-CT Code Diagnosis ICD10 Code Diagnosis Note [id number] Bren Valero NP [address] [address] 06/03/2023 08:17:28 06/07/2023 10:25:32 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 5216107183 C80.1 rectosigmo id cancer with mets to [...] nmonitor bmp weekly while here Recurrent falls 36614104 2 R29.6 recurrent falls at homewhile in hosp felt due to syncope, dehydratio n and chemoCT head/spine neg for fxPT/OT treat and evalsuppor tive measures and safetymoni tor labs weekly and hydration status Asthenia 85886496 R53.1 felt very deconditio raquel in hosp and rec:PT OT eval and treat with rehab for strength, gait, balance, conditioni ng Tinea cruris 139582839 B 35.6 rash extensiveP kaylyn:nystat in powder topically tiddicfluc an 100 mg po daily x 4 more dosesclotr imazole betamethas one cream topcially bid to affected areainterd rywound consult Hypertensive disorder 38 060617 I10 metoprolol tartate 50 mg po bid hold SBP <90 HR <60captopr il 25 mg po bidmonitor bp, vitals Obstructiv e sleep apnea syndrome 20099909 G47.33 monitor resp status Congestive heart failure 96881013 I50.9 0-4 liters prn keep sat >90%monito r resp status, vitals, labs Obesity 925231557 E66.9 encourage good eating habitsweek ly wgtsdietic katiana consult for supportive diet and planmonito r Retention of urine 98003 4002 R33.9 retention of urine in hosp with foleyhad UTI resolved with ceftriaxon e x 7 days, however urine culture negremove jackson today, pvr q shift, sc > 350, reinsert jackson > 3 times sc, remove pvr if <350 x 3. Syncope 760270868 R55 found to be orthostati c with syncope in hospfelt resolved with fluids, no arrythmias foundateno lol changed to metoprolol in hospitalmo nitor Leukocytosis 712162487 D 72.829 felt rt steriods and tx with ceftriaxon e x 7 days with resolution monitor cbc weekly Aspartate transaminase level above reference range 5788628262 05110 R74.01 likely due to liver mets and hepatic steatosism onitor lfts weekly x 3 while in rehabavoid liver toxic meds/ pt on diflucanmo nitor closely Depressive disorder 3548 9007 F32.A sertraline 50 mg po dailymonit or Loose stool 763946871 R1 9.5 diphenoxyl ate-atropi ne 2.5/0.025 mg po qid prn loose stoolsmoni tor Candidiasis 56428398 B37 .9 minimal to no thrush noted on exam todaynysta tin susp po swish and spit qidalso on diflucanmo nitor Insomnia 208143559 G47.0 0 ambien 12.5 mg po qhsmonitor Chronic pain 23986531 G8 9.29 see mets cancerchan ge oxycodone 5 mg mild to mod pain, 10 mg mod to severe pain q 6 hours prn ( pt reports extreme pain and was using iv meds in hosp)dc percocet with liver disease [id number] Bren Valero NP [address] [address] 06/04/2023 16:56:47 06/07/2023 12:36:23 Herpes zoster 0119168 B02.9 shingles noted by wound team today [...] pt and staff educated on shinglesmo nitor [id number] Joselo Alonso MD [address] [address] 06/05/2023 14:38:30 06/08/2023 12:28:37 Malignant neoplasm of colon and/or rectum 188291112 C19 see HPIrectosi gmoid cancer s/p partial colectomy on chemothera pyLFTs felt secondary to probable metastatic spread [facility] liverfollo [facility] with concernsmo nitor for pain control now on oxycodone for pain controlwil l start oxycontin 20 mg bidcontinu e oxycodone 10 mg q 5-10 mg q 6 pro breakthrou gh 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 2438476532 C80.1 see above with recent elevated LFTsmonito r CMP on current antiviralc oordinate care with oncology Acute kidney injury 1466 9001 N17.8 hx colon resection with ARF appears secondary to dehydratio nmonitor fluid intake and renal functionno w off diureticre cintia on captopril Recurrent falls 98712382 2 R29.6 PT OT Eval and treatmonit or fall risk Asthenia 16544826 R53.1 PT OT eval and treatmonit or for improvemen t in functional ability and need for increased assist in community Hypertensive disorder 38 875856 I10 metoprolol 50 mg bidcaptopr il 25 mg bidcurrent ly elevated will increase metoprolol to 75 mg bid with parameters in placediscu ssed with nursing Congestive heart failure 95430117 I50.22 carrying dxno longer on HCTZmonito r respirator y and fluid status Depressive disorder 3548 9007 F33.8 zoloft 50 mg qdmonitor for effectpsyc h eval prn Insomnia 326791143 G47.0 0 ambien 12.5 mg qhsmonitor for effect Acute infe ctive cystitis 620942516 N30.00 treated with course of rocephinmo nitor for recurrent disease Herpes zoster 6082373 B0 2.9 question zoster outbreak left groinnow on acyclovir to complete courseprec autions in placemonit or to resolution on gabapentin 300 mg tid at baseline Edema of scrotum 7165821 0 N50.89 see abovemonit or for impairment of circulatio n to tissueto ED for acute decompensa tion Candidiasis of skin 4988 3006 B37.2 severe candidiasi s not improving on nystatin powderwith erythema, weeping edema and maceration of skinstart diflucan 150 mg qd x 10 dayswound care to follow with continued dressing changes in skin folds [id number] Bren Valero NP [address] [address] 06/08/2023 12:31:40 06/16/2023 11:13:19 Malignant neoplasm of colon and/or rectum 300328509 C19 see HPI for hxrectosig moid cancer s/p partial colectomy on chemothera pyLFTs felt secondary to probable metastatic spread to liverfollo [facility] with concernsmo nitor for pain [...] tor for relief 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 9453892023 C80.1 see above with recent elevated LFTsmonito r CMP on current antiviralc oordinate care with oncology Acute kidney injury 1466 9001 N17.8 hx colon resection with ARF appears secondary to dehydratio navoid nephrotoxi c medsccmoni tor fluid intake and renal functionno w off diureticre cintia on captoprilm onitor labs cbc and bmp abd liver profile weekly Asthenia 51294208 R53.1 PT OT eval and treatmonit or for improvemen t in functional ability and need for increased assist in community Recurrent falls 13728859 2 R29.6 PT OT Eval and treatmonit or fall risk Hypertensive disorder 38 861531 I10 contcaptop ril 25 mg bidmetopro lol to 75 mg bid with parameters in place(incr eased on 06/04) hr decreasing with slightly high at times still 80-90s.dis cussed with nursing Congestive heart failure 40700661 I50.22 carrying dxno longer on HCTZadd bnp to labsmonito r respirator y and fluid status Acute infe ctive cystitis 623976518 N30.00 resolvedtr eated with course of rocephin in hospmonito r for recurrent disease Depressive disorder 3548 9007 F33.8 contzoloft 50 mg qdmonitor for effectpsyc h eval prn Insomnia 386515321 G47.0 0 contambien 12.5 mg qhsmonitor for effect Herpes zoster 9118398 B0 2.9 question zoster outbreak left groinnow [...] changes in skin folds Edema of scrotum 8165249 0 N50.89 see abovemonit or for impairment [...] Guarantor Name 06/03/2023 1 [employer] [id number] Jeffery Marcus [id number] Jeffery Marcus 06/04/2023 1 [employer] [id number] Jeffery Landisa [id number] Jeffery Landisa 06/05/2023 1 [employer] [id number] Jeffery Landisa [id number] Jeffery Landisa 06/08/2023 1 [employer] [id number] Jeffery Marcus [id number] Jeffery Marcus Notes Date Note Type Note [...] with pmh above who is admitted to [facility] for rehab and continued care after hospitalization at [facility] [place] 05/22/-06/02/23 initially presenting with fall, weakness, [...] days ago and also follows with Alexa Hamill. He is unsure of next appt with [...] high fall risk Bren Valero, BK [address] [facility], [address], [place], [address], [facility] 06/03/2023 10:48:27 06/04/19 24 text/htm l Pt is seen for an acute visit for nursing concern of shingles per wound PA. 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 Beck, BRANDON, CHF, obesity, HTN. Jeffery a 72 yo male with pmh above who is admitted to [facility] for rehab and continued care after hospitalization at [facility] from -06/02/23 initially presenting with fall, weakness, [...] is alert and awake and shows this SAP PORTAL ARCHITECT his panus with multiple vesicular open areas [...] signedBIMS MOLST high fall risk Bren Valero, SAP PORTAL ARCHITECT [address] [facility], [address], [place], [address], [facility] [employer] 06/04/2023 17:34:47 06/05/19 24 text/htm l Patient is a 72 yo male admit from hospital after presenting with weakness s/p fall. Found to be in ARF with elevated wbc count and UTI complicated by rectosigmoid cancer s/p partial colectomy on chemotherapy, concern for dehydration. Treated with rocephin and IVF. Elevated LFTs felt secondary to probable metastatic spread to liver. Followed at [facility] for above CA, now with chemo at [facility] Of note since arrival at facility patient dx with shingles and started on acyclovir present and questions answered PMH significant forcolon CA s/p partial colectomychfhtnobesityOSA admit to facility for continued care and therapy to eval and treat Joselo Alonso MD [address] [facility], [address], [place], [address], [facility] [employer] 06/05/2023 15:30:47 06/08/19 24 text/htm l Pt is seen for acute rounding visit today. 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 Beck, BRANDON, CHF, obesity, HTN. Jeffery is a 72 yo male admitted to [facility] from hospital 05/22-06/01 after presenting with weakness s/p fall. Found to be in ARF with leukocytosis felt due to UTI complicated by rectosigmoid cancer s/p partial colectomy on chemotherapy, and concern for dehydration. While in the hosp he tx with rocephin and IVF. Elevated LFTs felt likely to metastatic spread to liver. Followed at [facility] for above CA, now with chemo at [facility]. On 06/03 pt diagnosed with shingles [...] would like to share some pictures. This SAP PORTAL ARCHITECT waited over 10 minutes for pt to show his picture on his phone which he cannot bring up regarding his wound. He refuses to left this SAP PORTAL ARCHITECT see his wound today. He reports standing and leg exercises daily with therapy but is too weak to do much more. He also reports pain 5/10 which is tolerable today on current pain regimen. Lungs clear and heart rate reg. No new concerns today. MOLST:Full code 4/4 24 signedBIHI MOLST high fall risk Bren Valero, BK [address] [facility], [address], [place], [address], [facility] 06/08/2023 14:09:08
--- OUTSIDE RECORDS SUMMARY | 2024-06-26 17:27 | XMS_ITS | Clinical Summary ---
Author Organization [facility] Address [address] [place] [address] Care Team Providers Care Quarantine Officer Name Role Phone Pcp, No Primary Care [...] topic Insurance MEDICARE PART A & B [facility] Care Teams Quarantine Officer Relationship Specialty Start Date End Date Pcp, No PCP - General General Medicine 11/23/22
== END 2024-06-26 14:36 | disposition home or self-care (01) ==
LOC: HO.CT 14:35
PROVIDERS: PCP Internal Medicine
DX: Z13.89 Encounter for screening for other disorder (principal)

== ENCOUNTER 2024-06-26 15:17 | Emergency (ER) | payer BC, MEDICARE, SELFPAY ==
[2024-06-26] VITALS (8 sets, daily range): BP systolic 141–190; BP diastolic 84–110; PULSE 89–122; RESP 16–20; TEMP 36.6–37.1; O2SAT 94–98; BMI 39.3
--- NOTE | 2024-06-26 | ECG_ITS ---
Test Reason : cp Blood Pressure : */* mmHG Vent. Rate : 121 BPM Atrial Rate : 121 BPM P-R Int : 146 ms QRS Dur : 132 ms QT Int : 346 ms P-R-T Axes : 29 -20 -52 degrees QTcB Int : 491 ms Sinus tachycardia Right bundle branch block T wave abnormality, consider inferolateral ischemia Abnormal ECG When compared with ECG of 31-May-2023 16:41, Inverted T waves have replaced nonspecific T wave abnormality in Inferior leads Referred By: Generic ED Physician Electronically Signed By: Noe Sams
--- NOTE | ~2024-06-26 | XR_ITS ---
EXAMINATION: XR CHEST CLINICAL INFORMATION: pain COMPARISON: April 18, 2024. TECHNIQUE: 2 views of the chest were obtained. FINDINGS: No consolidation. Blunting of the right costophrenic angle. No pneumothorax. Cardiomediastinal silhouette size is normal. Calcified plaque thoracic aorta. Multilevel thoracic spondylosis. Osteopenia versus osteoporosis. Right-sided Port-A-Cath tip ends in the SVC, unchanged. XR/XR chest 2V IMPRESSION: Right-sided pleural effusion, small to moderate volume. Mild interstitial lung edema. Electronically signed by: Carmelo Read MD 06/26/2024 04:20 PM EDT
--- NOTE | ~2024-06-26 | CT_ITS ---
CLINICAL HISTORY: new Auditory hallucination CT head without contrast Comparison: Head CT from 05/23/2023 Findings: No acute intracranial hemorrhage. No midline shift or hydrocephalus. Mild-moderate white matter lesions are redemonstrated as can be seen with small-vessel ischemic disease. No large arterial territorial infarction. No change in small left basal ganglia region lacunar infarctions. Vascular calcifications again noted. Mucosal thickening includes imaged paranasal sinuses. Imaged mastoid air cells are well-aerated. No acute skull fracture. IMPRESSION: 1. No acute intracranial abnormality by CT. This document has been electronically signed by: Micheal Bell MD on 06/26/2024 21:23:36
--- NOTE | ~2024-06-26 | CT_ITS ---
CLINICAL HISTORY: dissection CT angiography chest with contrast. With MIP MPR Postprocessing. Comparison: CT of the abdomen and pelvis from same day. Findings: No central pulmonary embolism accounting for motion artifacts. Solid pulmonary nodule measures 2.7 cm in the superior segment of the left lower lobe. Multiple additional pulmonary nodules are scattered in both lower lobes, with right lower measuring 2 cm. Additional atelectasis/pneumonitis of both lung bases. Calcified and noncalcified plaque involving the tortuous aorta. No dissection flap accounting for motion artifacts. Ascending thoracic aorta selectively measures 3.8 cm in the study with motion artifacts. Coronary artery calcifications noted with mild cardiomegaly majority of the mediastinum deviated to the left. Mild mediastinal lipomatosis also present. Mild vertebral height losses appear old/chronic and accentuated by Schmorl's nodes. Bridging osteophytes are multifocal. Degenerative changes include imaged shoulders and imaged spine. Right-sided chest port is in place. The visualized upper abdomen is unremarkable. No acute fractures. IMPRESSION: 1. No central pulmonary embolism or aortic dissection accounting for artifacts. 2. Bibasilar atelectasis/pneumonitis. 3. Multiple pulmonary nodules particularly in the lower lobes concerning for lung neoplasms. 4. Please refer to separate report for CT of the abdomen and pelvis. This document has been electronically signed by: Micheal Bell MD on 06/26/2024 21:36:08
--- NOTE | ~2024-06-26 | CT_ITS ---
CLINICAL HISTORY: dissection CT angiography abdomen and pelvis with contrast. With MIP MPR post processing. Comparison: CT abdomen and pelvis from 05/23/2023 Findings: Redemonstration of the steatotic change of the liver. Multiple cholelithiasis are redemonstrated in the distended gallbladder. Spleen is nonenlarged. Mild volume loss of the pancreas noted. The adrenal glands are normal. No hydronephrosis. No aneurysmal dilatation of the infrarenal abdominal aorta. Tortuosity aorta noted. No defined dissection flap accounting for artifacts. Calcified and noncalcified plaque involving the imaged aorta and its branches. Mild stenosis of the celiac axis and SMA accounting for motion artifacts and calcium artifacts. Petufvci-tf-qwudwr stenosis of the proximal right renal artery. Moderate stenosis of the proximal left renal artery. MELODY opacifies. Tortuosity of the imaged iliacs without significant stenosis. Calcified and noncalcified plaque including the imaged femoral arteries with mild stenosis of the left common femoral artery. Prostate gland measures 4.7 cm transversely and indents upon the urinary bladder with mild nonspecific wall thickening of the urinary bladder. No small bowel obstruction. Mild wall thickening of the large intestine including cecum may reflect colitis but is nonspecific by CT. No free intraperitoneal air. Artifacts noted including from motion, superficial metal, and positioning of the upper extremities. Mild vertebral height losses appear old/chronic and accentuated by multifocal Schmorl's nodes. Degenerative changes include severe osteoarthritis of the both hips. Mild/minimal pelvis deformities otherwise appear old/chronic. CT findings of spinal stenosis including lumbar spine. IMPRESSION: 1. Multifocal atherosclerosis, without dissection accounting for artifacts. 2. Cholelithiasis. 3. Please refer to separate report for chest CT. This document has been electronically signed by: Micheal Bell MD on 06/26/2024 21:30:31
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
[2024-06-26 15:40] LABS: MANUAL DIFF FLAG NO
[2024-06-26 15:43] LABS: Basophils Percent Auto 0.5 % (0-2); Eosinophils Percent Auto 0.5 % (0-4); Hematocrit 43.8 % (42.0-52.0); Hemoglobin 15.2 g/dl (14.0-18.0); Imm Gran Abs Auto 0.03 X10*3/uL (0.00-0.03); Imm Gran Pct Auto 0.5 % (0.0-0.4); Lymphocytes Absolute Auto 0.9 X10*3/uL (1.2-4.9); Mean Corpuscular HGB Conc 34.7 g/dl (31.0-36.0); Mean Corpuscular Hemoglobin 31.9 pg (27.0-33.0); Mean Platelet Volume 10.3 fL (9.4-12.4); Monocytes Absolute Auto 0.7 X10*3/uL (0.1-1.2); Monocytes Percent Auto 10.3 % (2-11); Neutrophils Absolute Auto 4.8 x10*3/uL (2.0-8.3); Neutrophils Percent Auto 74.2 % (45-73); Platelet Count 279 X10*3/uL (160-400); Red Blood Count 4.76 X10*6/uL (4.60-5.80); Red Cell Distribution Width 14.6 % (11.0-16.0); White Blood Count 6.5 X10*3/uL (4.8-10.8)
[2024-06-26 15:56] LABS: Alanine Aminotransferase 46 U/L (0-40); Albumin Level 3.7 g/dL (3.5-5.0); Alkaline Phosphatase 151 U/L (39-117); Anion Gap 18 (12-20); Aspartate Amino Transferase 59 U/L (5-37); Bilirubin Total 1.1 mg/dL (0.0-1.0); Blood Urea Nitrogen 10 mg/dL (9-16); Calcium 9.8 mg/dL (8.4-10.2); Carbon Dioxide 24 mmol/L (22-29); Chloride 103 mmol/L (96-108); Creatinine Clr Calc Pharmacy 101.7; Estimated Glomerular Filt Rate > 60; Glucose Random 119 mg/dL (60-115); Lipase 35 U/L (8-78); Potassium 4.9 mmol/L (3.3-5.1); Sodium 140 mmol/L (135-145); Total Protein 7.7 g/dL (6.5-8.0)
[2024-06-26 16:00] LABS: B Type Natriuretic Peptide 88 pg/mL (<100); Troponin-I High Sensitivity 36.6 ng/L (<3.5-35.0)
--- OUTSIDE RECORDS SUMMARY | 2024-06-26 19:18 | XMS_ITS | Clinical Summary ---
Author Organization [facility] Address [address] [place] [address] Care Team Providers Care Sales Leader Name Role Phone Pcp, No Primary Care [...] topic Insurance MEDICARE PART A & B [facility] Care Teams Sales Leader Relationship Specialty Start Date End Date Pcp, No PCP - General General Medicine 11/23/22
[2024-06-26 19:33] LABS: Bilirubin Direct 0.5 mg/dL (0.0-0.5)
--- NOTE | 2024-06-26 20:17 | PC.NURSE ---
Port accessed to right upper chest by Swati Tamez RN & this RN assisting. Pt has double ports to right chest. Power push/CT compatible needle used. Sterile technique performed. Patient away for CT scan at this time. at bedside. Plan to administer medications upon return. Primarily receives oncology care at [facility].
[2024-06-26 20:24] LABS: Ammonia 32 umol/L (13-55)
[2024-06-26] MEDS: iohexoL 350 MG/ML 100 ML INFUS..BTL IV (20:53)
[2024-06-26 20:54] LABS: Appearance Urine Clear; Color Urine Dark Yellow; Glucose Urine UA Negative (Negative); Leukocyte Esterase Urine Negative (Negative); Nitrite Urine Negative (Negative); PH 5.5 (5.0-9.0); Specific Gravity - Urine >= 1.030 (1.005-1.025); UMIC TRIGGER UACC YES; Urine Blood Small (1+) (Negative); Urine Ketones 40 mg/dL (Negative); Urine Protein Trace mg/dL (Neg-Trace)
[2024-06-26] MEDS: HYDROmorphone HCl 1 MG/ML SYRINGE IVPUSH (21:03)
[2024-06-26] MEDS: ondansetron HCL 4 MG/2 ML VIAL IVPUSH (21:03)
[2024-06-26] MEDS: 0.9 % Sodium Chloride 1,000 ML 999 ML IV (21:04)
[2024-06-26 21:05] LABS: Bacteria Urine None Seen (None Seen); Calcium Oxalate Crystals Urine Present; WBC Urine 0-5 /HPF (0-5)
[2024-06-26 23:30] LABS: Troponin-I High Sensitivity 37.5 ng/L (<3.5-35.0)
--- NOTE | 2024-06-26 23:33 | PC.NURSE ---
Took over care from LUIS MIGUEL Longoria, pt resting at this time. awaiting disposition.
[2024-06-27 01:03] VITALS: BP 157/101; PULSE 98; RESP 16; TEMP 36.8; O2SAT 98
--- NOTE | 2024-06-27 01:17 | PC.NURSE ---
pt discharged by Charge nurse Mckenna.
--- NOTE | 2024-06-27 01:20 | PC.NURSE ---
port de-accessed and discharge instruction given and reviewed by charge nurse Mckenna.
== END 2024-06-27 01:21 | disposition home or self-care (01) ==
PROVIDERS: Physician Assistant; Physician Assistant Medical; Emergency Provider Emergency Medicine; PCP Internal Medicine
DX: R07.89 Other chest pain (principal); R10.2 Pelvic and perineal pain; R00.0 Tachycardia, unspecified; R94.31 Abnormal electrocardiogram [ECG] [EKG]; I45.10 Unspecified right bundle-branch block; R51.9 Headache, unspecified; R06.02 Shortness of breath; Z79.899 Other long term (current) drug therapy; Z87.891 Personal history of nicotine dependence
CPT/HCPCS: 36415; 70450; 71046; 71275; 74174; 80053; 81001; 82140; 82248; 83690; 83880; 84484; 85025; 93005; 96374; 96375; 99284; 99285; J1171; J2405; Q9967

== ENCOUNTER → 2024-06-26 15:20 | Outpatient (BNV) | payer BC, MEDICARE, SELFPAY | PROVIDERS: Emergency Provider Emergency Medicine; PCP Internal Medicine; Visit Provider Internal Medicine Cardiovascular Disease | DX: I45.10 Unspecified right bundle-branch block (principal); R00.0 Tachycardia, unspecified | CPT/HCPCS: 93010 ==

== ENCOUNTER → 2024-06-26 15:26 | Outpatient (BNV) | payer BC, MEDICARE, SELFPAY | PROVIDERS: PCP Internal Medicine; Visit Provider Radiology Diagnostic Radiology | DX: R91.8 Other nonspecific abnormal finding of lung field (principal); J98.11 Atelectasis; R44.0 Auditory hallucinations; J90 Pleural effusion, not elsewhere classified; J84.9 Interstitial pulmonary disease, unspecified; I25.10 Atherosclerotic heart disease of native coronary artery without angina pectoris; K80.80 Other cholelithiasis without obstruction | CPT/HCPCS: 70450; 71046; 71275; 74174 ==

== ENCOUNTER 2024-07-17 16:12 | Outpatient (AMB) | payer MEDICARE, SELFPAY ==
--- OUTSIDE RECORDS SUMMARY | 2024-07-17 16:16 | XMS_ITS ---
Author Organization [facility] Care Team Providers Care Controller [place] Name Role Phone Catracho Aysha Unavailable Unavailable Duncan Lane Unavailable Unavailable Kellen Blevins Unavailable Unavailable Aurea Garduno Unavailable Unavailable Petr Medina Unavailable Unavailable Allergies and adverse reactions Code CodeSystem Substance Reaction Severity StartDate Concern Status 1191 RXNORM Aspirin Unknown 06/21/2023 active Care Team Name Role Address Phone Organization Dates Duncan [address] PCP [address], [place], [address], [place] (Office): [facility] 06/21/2023 - 07/07/2023 Aysha Hayden [address], [place], [address], [place] (Office): [facility] 06/21/2023 - 07/07/2023 Kellen Blevins [address], [place], [address], [place] (Office): [facility] 06/21/2023 - 07/07/2023 Aurea Garduno [address] [place], [address], [place] (Office): [facility] 06/21/2023 - 07/07/2023 Petr Medina [address] [place], [address], [place] (Office): : [facility] 06/21/2023 - 07/07/2023 Immunizations Immunization Status Vaccine Details Vaccine Code CodeSystem Date Notes Influenza completed Influenza, split virus, trivalent, injectable, contains preservative 141 CVX created date: 06/23/2023 administere d date: 02/11/2023 TB 2 Step Mantoux Skin Test completed tuberculin skin test; unspecified formulation lotNumber: [id number] expiry: 01/29/2025 Mfg: [employer] Given 0.1 ml Left Forearm subcutaneously Step 1 of Multi-step 98 CVX created date: 06/29/2023 consent date: 06/29/2023 administere d date: 06/29/2023 Pneumococcal Polysaccharide Vaccine (PPSV23) completed pneumococcal polysaccharide vaccine, 23 valent 33 CVX created date: 06/23/2023 administere d date: 12/13/2015 SARS-COV-2 (COVID-19) completed SARS-COV-2 (COVID-19) vaccine, mRNA, spike protein, LNP, preservative free, 30 mcg/0.3mL dose Step 1 of Multi-step with next step required 208 CVX created date: 06/23/2023 administere d date: 02/14/2021 SARS-COV-2 (COVID-19) completed SARS-COV-2 (COVID-19) vaccine, mRNA, spike protein, LNP, bivalent, preservative free, 30 mcg/0.3 mL dose, vita-sucrose formulation Step 1 of Multi-step with next step required 300 CVX created date: 06/23/2023 administere d date: 06/04/2020 SARS-COV-2 (COVID-19) completed SARS-COV-2 (COVID-19) vaccine, mRNA, spike protein, LNP, bivalent, preservative free, 30 mcg/0.3 mL dose, vita-sucrose formulation Step 1 of Multi-step with next step required 300 CVX created date: 06/23/2023 administere d date: 05/14/2020 Td (adult), 5 Lf tetanus toxoid, preservative free, adsorbed completed tetanus and diphtheria toxoids, adsorbed, preservative free, for adult use (5 Lf of tetanus toxoid and 2 Lf of diphtheria toxoid) 113 CVX created date: 06/23/2023 administere d date: 04/10/2017 Tdap completed tetanus toxoid, reduced diphtheria toxoid, and acellular pertussis vaccine, adsorbed 115 CVX created date: 06/23/2023 administere d date: 12/13/2015 Mental Status Section Date Assessment Total Score Description 07/07/2023 BIMS 14 cognitively int act CAM 0 No delirium ind icated PHQ-9 00 06/27/2023 BIMS 14 cognitively int act CAM 0 No delirium ind icated PHQ-9 00 Problems Problem # Description Date of onset Resolved Date Code CodeSystem Concern Status 1 DEPRESSION, UNSPECIFIED 06/22/[address] active 2 INSOMNIA, UNSPECIFIED 06/22/[address] active 3 BILATERAL PRIMARY OSTEOARTHRITIS OF KNEE 06/21/[address] active 4 CHRONIC PAIN SYNDROME 06/21/[address] active 5 DIFFICULTY IN WALKING, NOT ELSEWHERE CLASSIFIED 06/21/[address] active 6 ELEVATION OF LEVELS OF LIVER TRANSAMINASE LEVELS 06/21/[address] active 7 ESSENTIAL (PRIMARY) HYPERTENSION 06/21/[address] active 8 MALIGNANT NEOPLASM OF COLON, UNSPECIFIED 06/21/[address] active 9 MALIGNANT NEOPLASM OF RECTUM 06/21/[address] active 10 MUSCLE WEAKNESS (GENERALIZED) 06/21/[address] active 11 NEED FOR ASSISTANCE WITH PERSONAL CARE 06/21/[id number] active 12 OTHER INJURY OF UNSPECIFIED BODY REGION, SUBSEQUENT ENCOUNTER 06/21/[address] active 13 SLEEP APNEA, UNSPECIFIED 06/21/[address] active 14 UNSPECIFIED DEMENTIA, UNSPECIFIED SEVERITY, WITHOUT BEHAVIORAL DISTURBANCE, PSYCHOTIC DISTURBANCE, MOOD DISTURBANCE, AND ANXIETY 06/21/[address] active 15 UNSPECIFIED SYMPTOMS AND SIGNS INVOLVING THE NERVOUS SYSTEM 06/21/[address] active 16 WEAKNESS 06/21/[address] active Reason for Referral No Reasons for Referral Entered Social History Social History Observation Description Start Date End Date Code Code System Current Smoking Status Tobacco smoking consumption unknown 991402961 SNOMED CT Sex Assigned At Male 1950 68248-7 [facility] Gender Identity Vital Signs Code Code System Vitals Name Values and Units Timing Information 85333-8 [facility] O2 % BldC Oximetry Value=96.0 Units= % 07/07/2023 58166-8 [facility] Pain Level Value=2.0 07/07/2023 9279-1 [facility] Respiratory Rate Value=16.0 Units=/m in 07/07/2023 8310-5 [facility] Body Temperature Value=98.2 Units=?? F 07/07/2023 8867-4 [facility] Heart rate Value=78.0 Units=/min 09/2023 8462-4 [facility] Blood Pressure-Diastolic Value=69 Un its=mmHg 07/07/2023 8480-6 [facility] Blood Pressure-Systolic Yutjk=596 Un its=mmHg 07/07/2023 50756-6 [facility] Weight Ercqp=951.0 Units=Lbs 04/2023 8302-2 [facility] Height Value=74.0 Units=Inches 06/21/2023
--- OUTSIDE RECORDS SUMMARY | 2024-07-17 16:16 | XMS_ITS | Data Portability ---
Author Organization [facility], Main Office Address [address] [facility] [address], [address] [place] [address] Care Team Providers Care General Repairer Name Role Phone BEREKET SURESH - 2ND FLOOR OTHER BERTHA BARRY Primary Care Provider [phone] Assessment No assessment recorded. Plan of Treatment Reminders Order Date Submit Date Provider Last Modified By Organization Details Last Modified Time Details Appointments None recorded. Lab None recorded. Referral None recorded. Procedures None recorded. Surgeries None recorded. Imaging None recorded. Medication Orders oxycodone 5 mg tablet 2023 024 [facility] , [address] [place] [address], [address], 4 08:37:48 Ambien CR 12.5 mg tablet,ext ended release 2023 024 [facility] , [address] [place] [address], [address], 4 08:37:48 Patient TargetsNo targets recorded. Patient Instructions Encounter Date Encounter Id Patient Instructions Last Modified By Organization Details Last Modified Time 06/04/2023 [id number] shingles: care instructions Not available 06/04/2023 17:34:45 Reason for Referral None Reported. Problems Name Problem SNOMED Code Status Onset Date Resolution Date Notes Provider Name and Address Organization Details Recorded Time 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 Active 2023 Bren Valero NP [address] [facility], [address], [place], [address] , [facility] 4 08:59:38 Acute kidney injury 65684316 Active 2023 Bren Valero NP [address], [address], [place], [address], [facility] 4 08:59:46 Tinfelix singletary 581693936 Active 2023 Bren Valero NP [address], [address], [place], [address], [facility] 4 09:00:05 Obstructive sleep apnea syndrome 76196758 Active 2023 Bren Valero NP [address], [place], [address], [facility] 4 09:00:33 Obesity 756485952 Active 2023 Bren Valero NP [address], [address], [place], [address], [facility] 4 09:00:40 Congestive heart failure 59395393 Active 2023 Bren Valero NP [address], [place], [address], [facility] 4 09:00:47 Recurrent falls 850532907 Active 2023 Bren Valero NP [address], [place], [address], [facility] 4 09:00:54 Hypertensiv e disorder 37395641 Active 2023 Bren Valero NP [address], [place], [address], [facility] 4 09:01:04 Asthenia 99859201 Active 2023 Bren Valero NP [address], [place], [address], [facility] 4 09:04:03 Retention of urine 453970532 Active 2023 Bren Valero NP [address], [place], [address], [facility] 4 09:07:12 Syncope 898011051 Active 2023 Bren Valero NP [address] [facility], [address], [place], [address], [facility] 4 09:09:13 Leukocytosi s 502014765 Active 2023 Bren Valero NP [address] [facility], [address], [place], [address], [facility] 4 09:13:27 Aspartate transaminas e level above reference range 6074116736000 08 Active 2023 Bren Valero NP [address] [facility], [address], [place], [address], [facility] 4 09:15:25 Loose stool 806288853 Active 2023 Bren Valero NP [address] [facility], [address], [place], [address], [facility] 4 09:24:36 Candidiasis 74797866 Active 2023 Bren Valero NP [address] [facility], [address], [place], [address], [facility] 4 09:28:02 Insomnia 379340027 Active 2023 Bren Valero NP [address] [facility], [address], [place], [address], [facility] 4 10:17:35 Malignant neoplasm of colon and/or rectum 198161007 Active 2023 Joselo Alonso MD [address] [facility], [address], [place], [address], [facility] 4 14:45:45 Problem Notes None recorded. Medical Equipment None Reported. Allergies Allergen ID Allergen Name Allergen Category Reaction Reaction Severity Criticality Documentation Date Start Date Code Code System Note Provider Name and Address Organization Details Recorded Time 28667 aspirin medicatio n other Not available unabletoasse 06/03/2023 1191 RxNorm Bren Valero NP [address] [facility], [address], [place], [address], [facility] 4 10:21:26 Medications Name Sig Start [...] mm[Hg] 84 mm[Hg] Bren Valero NP [address] [facility] [address], [place], [address] , [facility] 06/03/2023 08:19:07 Date Recorded Heart rate Respiratory rate Body temperature Oxygen saturation Oxygen saturation in Arterial blood by Pulse oximetry Systolic blood pressure Diastolic blood pressure Provider Name and Address Organization Details Last Updated DateTime 100 /min 18 /min 97.6 [degF] 93 % 93 % 149 mm[Hg] 83 mm[Hg] Bren Valero NP [address] [facility] [address], [place], [address], [facility] 17:23:47 Date Recorded Heart rate Respiratory rate Body temperature Oxygen saturation Oxygen saturation in Arterial blood by Pulse oximetry Systolic blood pressure Diastolic blood pressure Provider Name and Address Organization Details Last Updated DateTime 98 /min 16 /min 97.9 [degF] 94 % 94 % 149 mm[Hg] 92 mm[Hg] Bren Valero NP [address] [facility], [address], [place], [address], [facility] 4 12:33:05 Date Recorded Systolic blood pressure Diastolic blood pressure Provider Name and Address Organization Details Last Updated DateTime 06/05/2023 177 mm[Hg] 100 mm[Hg] Joselo Alonso MD [address] [facility], [address], [place], [address], [facility] 06/05/2023 14:39:02 Social History Question Answer Notes LastModified by Jiankongbao Details LastModified Time Tobacco Smoking Status Former Smoker Bren Valero NP [address] [facility], [address], [place], [address], [facility] 06/03/2023 10:22:59 Do You Have An [...] You Smoke? No Information not available 06/03/2023 Has Tobacco Cessation Counseling Been Provided? No Information not available 06/03/2023 Sex: Male Functional Status Question Answer Note LastModified by Jiankongbao Details LastModified Time Do you use any illicit or recreational drugs? No tried cbd gummies 2 years ago Information not available 06/03/2023 Do you or have you ever used any other forms of tobacco or nicotine? No Information not available 06/03/2023 What is your level of alcohol consumption? None Information not available 06/03/2023 Mental Status None recorded. Family History Nothing Reported Notes:father: colon and kidn ey cancer Medical History No medical history recorded. Immunizations Vaccine Type Date Status Note Provider Nam e and Address Organization Details Recorded Time Tdap 6 completed [facility] 06/04/2023 12:23:34 Td(adult) unspecified formulation 8 completed [facility] 06/04/2023 12:23:50 pneumococcal polysaccharide PPV23 6 completed [facility] 06/04/2023 12:24:08 influenza, unspecified formulation 3 completed [facility] 06/04/2023 12:24:27 SARS-COV-2 (COVID-19) vaccine, UNSPECIFIED 1 completed [facility] 06/04/2023 12:24:41 SARS-COV-2 (COVID-19) vaccine, UNSPECIFIED 1 completed [facility] 06/04/2023 12:24:50 SARS-COV-2 (COVID-19) vaccine, UNSPECIFIED 1 completed [facility] 06/04/2023 12:24:59 Past Encounters Encounter ID Performer Location Encounter Start Date Encounter Closed Date Diagnosis/Indication Diagnosis SNOMED-CT Code Diagnosis ICD10 Code Diagnosis Note [id number] Bren Valero NP [facility] [address] [place] [address] 06/03/2023 08:17:28 06/07/2023 10:25:32 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 7583015097 C80.1 rectosigmo id cancer with mets to [...] nmonitor bmp weekly while here Recurrent falls 60835442 2 R29.6 recurrent falls at homewhile in hosp felt due to syncope, dehydratio n and chemoCT head/spine neg for fxPT/OT treat and evalsuppor tive measures and safetymoni tor labs weekly and hydration status Asthenia 76485794 R53.1 felt very deconditio raquel in hosp and rec:PT OT eval and treat with rehab for strength, gait, balance, conditioni ng Tinea cruris 011480735 B 35.6 rash extensiveP kaylyn:nystat in powder topically tiddicfluc an 100 mg po daily x 4 more dosesclotr imazole betamethas one cream topcially bid to affected areainterd rywound consult Hypertensive disorder 38 460435 I10 metoprolol tartate 50 mg po bid hold SBP <90 HR <60captopr il 25 mg po bidmonitor bp, vitals Obstructiv e sleep apnea syndrome 04449092 G47.33 monitor resp status Congestive heart failure 85506388 I50.9 0-4 liters prn keep sat >90%monito r resp status, vitals, labs Obesity 833299527 E66.9 encourage good eating habitsweek ly wgtsdietic katiana consult for supportive diet and planmonito r Retention of urine 82908 4002 R33.9 retention of urine in hosp with foleyhad UTI resolved with ceftriaxon e x 7 days, however urine culture negremove jackson today, pvr q shift, sc > 350, reinsert jackson > 3 times sc, remove pvr if <350 x 3. Syncope 743941065 R55 found to be orthostati c with syncope in hospfelt resolved with fluids, no arrythmias foundateno lol changed to metoprolol in hospitalmo nitor Leukocytosis 976171065 D 72.829 felt rt steriods and tx with ceftriaxon e x 7 days with resolution monitor cbc weekly Aspartate transaminase level above reference range 4289736925 95279 R74.01 likely due to liver mets and hepatic steatosism onitor lfts weekly x 3 while in rehabavoid liver toxic meds/ pt on diflucanmo nitor closely Depressive disorder 3548 9007 F32.A sertraline 50 mg po dailymonit or Loose stool 286971153 R1 9.5 diphenoxyl ate-atropi ne 2.5/0.025 mg po qid prn loose stoolsmoni tor Candidiasis 16175475 B37 .9 minimal to no thrush noted on exam todaynysta tin susp po swish and spit qidalso on diflucanmo nitor Insomnia 981157080 G47.0 0 ambien 12.5 mg po qhsmonitor Chronic pain 56357926 G8 9.29 see mets cancerchan ge oxycodone 5 mg mild to mod pain, 10 mg mod to severe pain q 6 hours prn ( pt reports extreme pain and was using iv meds in hosp)dc percocet with liver disease [id number] Bren Valero NP [address] [address] 06/04/2023 16:56:47 06/07/2023 12:36:23 Herpes zoster 4429194 B02.9 shingles noted by wound team today [...] pt and staff educated on shinglesmo nitor [id number] [facility] [address] 06/05/2023 14:38:30 06/08/2023 12:28:37 Malignant neoplasm of colon and/or rectum 980158231 C19 see HPIrectosi gmoid cancer s/p partial colectomy on chemothera pyLFTs felt secondary to probable metastatic spread to liverfollo wed at [facility] te with concernsmo nitor for pain control now on oxycodone for pain controlwil l start oxycontin 20 mg bidcontinu e oxycodone 10 mg q 5-10 mg q 6 pro breakthrou gh 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 4711114394 C80.1 see above with recent elevated LFTsmonito r CMP on current antiviralc oordinate care with oncology Acute kidney injury 1466 9001 N17.8 hx colon resection with ARF appears secondary to dehydratio nmonitor fluid intake and renal functionno w off diureticre cintia on captopril Recurrent falls 31290409 2 R29.6 PT OT Eval and treatmonit or fall risk Asthenia 27813515 R53.1 PT OT eval and treatmonit or for improvemen t in functional ability and need for increased assist in community Hypertensive disorder 38 578230 I10 metoprolol 50 mg bidcaptopr il 25 mg bidcurrent ly elevated will increase metoprolol to 75 mg bid with parameters in placediscu ssed with nursing Congestive heart failure 76956997 I50.22 carrying dxno longer on HCTZmonito r respirator y and fluid status Depressive disorder 3548 9007 F33.8 zoloft 50 mg qdmonitor for effectpsyc h eval prn Insomnia 672962285 G47.0 0 ambien 12.5 mg qhsmonitor for effect Acute infe ctive cystitis 772670242 N30.00 treated with course of rocephinmo nitor for recurrent disease Herpes zoster 4448529 B0 2.9 question zoster outbreak left groinnow on acyclovir to complete courseprec autions in placemonit or to resolution on gabapentin 300 mg tid at baseline Edema of scrotum 0550377 0 N50.89 see abovemonit or for impairment of circulatio n to tissueto ED for acute decompensa tion Candidiasis of skin 4988 3006 B37.2 severe candidiasi s not improving on nystatin powderwith erythema, weeping edema and maceration of skinstart diflucan 150 mg qd x 10 dayswound care to follow with continued dressing changes in skin folds [id number] Bren Valero NP [facility] [place] [address] 06/08/2023 12:31:40 06/16/2023 11:13:19 Malignant neoplasm of colon and/or rectum 895024250 C19 see HPI for hxrectosig moid cancer s/p partial colectomy on chemothera pyLFTs felt secondary to probable metastatic spread to liverfollo wed at [facility] outptupdat e with concernsmo nitor for pain [...] tor for relief 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 5097493198 C80.1 see above with recent elevated LFTsmonito r CMP on current antiviralc oordinate care with oncology Acute kidney injury 1466 9001 N17.8 hx colon resection with ARF appears secondary to dehydratio navoid nephrotoxi c medsccmoni tor fluid intake and renal functionno w off diureticre cintia on captoprilm onitor labs cbc and bmp abd liver profile weekly Asthenia 20820766 R53.1 PT OT eval and treatmonit or for improvemen t in functional ability and need for increased assist in community Recurrent falls 05121609 2 R29.6 PT OT Eval and treatmonit or fall risk Hypertensive disorder 38 893644 I10 contcaptop ril 25 mg bidmetopro lol to 75 mg bid with parameters in place(incr eased on 06/04) hr decreasing with slightly high at times still 80-90s.dis cussed with nursing Congestive heart failure 87226239 I50.22 carrying dxno longer on HCTZadd bnp to labsmonito r respirator y and fluid status Acute infe ctive cystitis 669677777 N30.00 resolvedtr eated with course of rocephin in hospmonito r for recurrent disease Depressive disorder 3548 9007 F33.8 contzoloft 50 mg qdmonitor for effectpsyc h eval prn Insomnia 418426922 G47.0 0 contambien 12.5 mg qhsmonitor for effect Herpes zoster 3016545 B0 2.9 question zoster outbreak left groinnow [...] changes in skin folds Edema of scrotum 1091744 0 N50.89 see abovemonit or for impairment [...] Guarantor Name 06/03/2023 1 [employer] [id number] Jeffery Marcus [id number] Jeffery Marcus 06/04/2023 1 [employer] [id number] Jeffery Marcus [id number] Jeffery Marcus 06/05/2023 1 [employer] [id number] Jeffery Marcus [id number] Jeffery Marcus 06/08/2023 1 [employer] [id number] Jeffery Marcus [id number] Jeffery Marcus Notes Date Note Type Note [...] with pmh above who is [facility] and continued care after hospitalization at [facility] from 05/22/-06/02/23 initially presenting [...] days ago and also follows with [facility]. He is unsure of next appt with [...] also on diflucan. MOLST:Full code 06/03 23 signedBIOK 1515MOLST high fall risk Bren Valero, BK [address] [facility], [address], [place], [address], [facility] 06/03/2023 10:48:27 06/04/19 24 text/htm l Pt is seen for an acute visit for nursing concern of shingles per wound PA. 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 Beck, BRANDON, CHF, obesity, HTN. Jeffery a 72 yo male with pmh above who is admitted to [facility] for rehab and continued care after hospitalization at [facility] from 05/22/-06/02/23 initially presenting [...] is alert and awake and shows this BUDDHIST MONK his panus with multiple vesicular open areas [...] start acyclovir today. MOLST:Full code 06/03 [facility]MOL[facility] high fall risk Bren Valero NP [address] [facility], [address], [place], [address], [facility] 06/04/2023 17:34:47 06/05/19 24 text/htm l Patient is a 72 yo male admit from hospital after presenting with weakness s/p fall. Found to be in ARF with elevated wbc count and UTI complicated by rectosigmoid cancer s/p partial colectomy on chemotherapy, concern for dehydration. Treated with rocephin and IVF. Elevated LFTs felt secondary to probable metastatic spread to liver. Followed at [facility] for above CA, now with chemo at [facility] Of note since arrival at facility patient dx with shingles and started on acyclovir present and questions answered PMH significant forcolon CA s/p partial colectomychfhtnobesityOSA admit to facility for continued care and therapy to eval and treat Joselo Alonso MD [address] [facility], [address], [place], [address], [facility] 06/05/2023 15:30:47 06/08/19 24 text/htm l Pt is seen for acute rounding visit today. 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 Beck, BRANDON, CHF, obesity, HTN. Jeffery is a 72 yo male admitted to [facility] from hospital 05/22-06/01 after presenting with weakness s/p fall. Found to be in ARF with leukocytosis felt due to UTI complicated by rectosigmoid cancer s/p partial colectomy on chemotherapy, and concern for dehydration. While in the hosp he tx with rocephin and IVF. Elevated LFTs felt likely to metastatic spread to liver. Followed at [facility] for above CA, now with chemo at [facility]. On 06/03 pt diagnosed with shingles [...] would like to share some pictures. This BUDDHIST MONK waited over 10 minutes for pt to show his picture on his phone which he cannot bring up regarding his wound. He refuses to left this BUDDHIST MONK see his wound today. He reports standing and leg exercises daily with therapy but is too weak to do much more. He also reports pain 5/10 which is tolerable today on current pain regimen. Lungs clear and heart rate reg. No new concerns today. MOLST:Full code 06/03 23 signedBIMS MOLST high fall risk Bren Valero NP [address] [facility], [address], [place], [address], [facility] 06/08/2023 14:09:08
--- OUTSIDE RECORDS SUMMARY | 2024-07-17 16:16 | XMS_ITS | Clinical Summary ---
Author Organization [facility] Address [address] [place] [address] Care Team Providers Care Varnish Inspector Name Role Phone Pcp, No Primary Care [...] Zoster (Shingles) Vaccine (1 of 2) 1998 COVID-19 Vaccine (2023-2 5 season) 2023 RSV Vaccine 60 years and old er and Patients (1 - 1-dose 75+ series) 12/27/2023 Influenza Vaccine 09/29/2024 Hepatitis B Vaccines Aged Out No long er eligible based on patient's age to complete this topic Insurance MEDICARE PART A & B [facility] Care Teams Varnish Inspector Relationship Specialty Start Date End Date Pcp, No PCP - General General Medicine 11/23/22
[2024-07-17 16:31] VITALS: BP 144/80; PULSE 60; O2SAT 94; BMI 38.2
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
== END 2024-07-17 17:15 | disposition home or self-care (01) ==
LOC: HO.HMCH 16:13
PROVIDERS: PCP Internal Medicine; Visit Provider Internal Medicine
DX: R44.1 Visual hallucinations (principal); E66.9 Obesity, unspecified; Z68.38 Body mass index [BMI] 38.0-38.9, adult; C18.9 Malignant neoplasm of colon, unspecified; C78.7 Secondary malignant neoplasm of liver and intrahepatic bile duct; I10 Essential (primary) hypertension

== ENCOUNTER → 2024-07-17 16:12 | Outpatient (BNVA) | payer BC, MEDICARE, SELFPAY | PROVIDERS: PCP Internal Medicine; Visit Provider Internal Medicine | DX: E66.9 Obesity, unspecified (principal); Z68.38 Body mass index [BMI] 38.0-38.9, adult; C18.9 Malignant neoplasm of colon, unspecified; C78.7 Secondary malignant neoplasm of liver and intrahepatic bile duct; R44.1 Visual hallucinations; I10 Essential (primary) hypertension; Z79.899 Other long term (current) drug therapy | CPT/HCPCS: 96127; 99212 ==

== ENCOUNTER 2024-08-24 13:57 | Outpatient (REF) | payer BC, MEDICARE, SELFPAY ==
--- NOTE | 2024-08-24 14:01 | EMG_ITS ---
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 History of peripheral neuropathy affecting both feet and fingertips. Sudden onset weakness on left arm. Exam shows atrophy of left FDI. But he does not have any intrinsic hand weakness. Reason for referral: Evaluate for ulnar neuropathy Referred by: Ely ZAMBRANO Procedure done: Left upper extremity NCS/EMG Precautions and/or limitations: None The limb temperature was monitored continuously and remained between 32-36 degrees C during the performance of the NCS. Ulnar motor NCS was performed with moderate elbow flexion between 70-90 degrees, with across-elbow distance of 10 cm. Nerve Conduction Studies Anti Sensory Summary Table ?Stim Site NR Onset (ms) Norm Onset (ms) Peak (ms) Norm Peak (ms) O-P Amp (?V) Norm O-P Amp Site1 Site2 Delta-0 (ms) Dist (cm) Nelson (m/s) Norm Nelson (m/s) Left Median Anti Sensory (2nd Digit) Wrist ? 2.7 3.5 <3.6 4.7 >10 Wrist 2nd Digit 2.7 14.0 52 Left Radial Anti Sensory (Thumb) Forearm ? 1.7 2.2 <3.1 5.7 Forearm Thumb 1.7 0.0 Left Ulnar Anti Sensory (5th Digit) Wrist NR <3.7 >15.0 Wrist 5th Digit 14.0 Motor Summary Table ?Stim Site NR Onset (ms) Norm Onset (ms) O-P Amp (mV) Norm O-P Amp iAmp (mV) Amp (1st) (%) Site1 Site2 Delta-0 (ms) Dist (cm) Nelson (m/s) Norm Nelson (m/s) Left Median Motor (Abd Poll Brev) Wrist ? 3.8 <3.9 7.2 >4.5 10.0 100.0 Elbow Wrist 5.0 25.0 50 >45 Elbow ? 8.8 7.3 9.7 101.4 Left Ulnar Motor (Abd Dig Minimi) Wrist ? 3.4 <3.0 2.5 >5 3.4 100.0 B Elbow Wrist 6.3 24.0 38 >45 B Elbow ? 9.7 1.5 1.9 60.0 A Elbow B Elbow 2.0 10.0 50 >45 A Elbow ? 11.7 2.6 3.4 104.0 Left Ulnar Motor (FDI) Wrist ? 4.7 <3.0 3.6 >5 4.3 100.0 B Elbow Wrist 5.8 22.0 38 >45 B Elbow ? 10.5 0.4 0.4 11.1 A Elbow B Elbow 2.0 10.0 50 >45 A Elbow ? 12.5 1.0 1.1 27.8 EMG ?Side Muscle Nerve Root Ins Act Fibs Psw Amp Dur Poly Recrt Int Pat Comment Left 1stDorInt Ulnar C8-T1 Incr 1+ 1+ Nml Nml 0 Nml Complete Left Biceps Musculocut C5-6 Nml Nml Nml Nml Nml 0 Nml Complete Left Triceps Radial C6-7-8 Nml Nml Nml Nml Nml 0 Nml Complete Left Deltoid Axillary C5-6 Nml Nml Nml Nml Nml 0 Nml Complete Left FlexCarpiUln Ulnar C8,T1 Nml Nml Nml Nml Nml 0 Nml Complete Paraspinal EMG ?Side Muscle Nerve Root Ins Act Fibs Psw Comment Left Cervical Upper Rami Nml Nml Nml Left Cervical Mid Rami Nml Nml Nml Left Cervical Lower Rami Nml Nml Nml FINDINGS: Left ulnar motor nerve, recording at ADM and FDI, both showed prolonged distal latency, small amplitudes and slow conduction velocity distally. But no conduction block across elbow. Left ulnar sensory nerve absent response. Left median sensory nerve showed normal peak latency but small amplitude. Left radial sensory nerve also showed small amplitude. All other nerves tested were within normal. Concentric needle EMG was performed in selected muscles of the left upper extremity and cervical paraspinals. Study revealed signs of electric abnormalities as shown in the table above. Left FDI showed increased insertional activity, PSWs and fibrillations. No denervation seen on FCU muscle. No denervation seen on cervical paraspinals. IMPRESSION: 1. This is an abnormal study. 2. 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 3. There is no electrodiagnostic evidence for median neuropathy, brachial plexopathy, or cervical radiculopathy. Thank you for your kind referral. Giovanna Suazo MD, [place] Board Certified, [place] [employer] and [employer] (ABPMR) Board Certified, [place] Board [employer] Electro[employer]ostic [employer] (ABEM) [place] [id number] [address]
--- OUTSIDE RECORDS SUMMARY | 2024-08-24 16:50 | XMS_ITS | Data Portability ---
Author Organization [facility], Main Office Address [address] [place] [address] Care Team Providers Care Brainer Name Role Phone BEREKET SURESH - 2ND FLOOR OTHER BERTHA BARRY Primary Care Provider Assessment No assessment recorded. Plan of Treatment Reminders Order Date Submit Date Provider Last Modified By Organization Details Last Modified Time Details Appointments None recorded. Lab None recorded. Referral None recorded. Procedures None recorded. Surgeries None recorded. Imaging None recorded. Medication Orders oxycodone 5 mg tablet 2023 024 [facility] , [address] [place] [address], [id number], 4 08:37:48 Ambien CR 12.5 mg tablet,ext ended release 2023 024 [facility] , [address] [place] [address], [id number], 4 08:37:48 Patient TargetsNo targets recorded. Patient Instructions Encounter Date Encounter Id Patient Instructions Last Modified By Organization Details Last Modified Time 06/04/2023 [id number] shingles: care instructions Not available 06/04/2023 17:34:45 Reason for Referral None Reported. Problems Name Problem SNOMED Code Status Onset Date Resolution Date Notes Provider Name and Address Organization Details Recorded Time 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 Active 2023 Bren Valero NP [address] [facility], [address], [place], [address], [facility] 4 08:59:38 Acute kidney injury 42614264 Active 2023 Bren Valero NP [address] [facility], [address], [place], [address], [facility] 4 08:59:46 Deondre singletary 362414721 Active 2023 Bren Valeor NP [address], [address], [place], [address], [facility] 4 09:00:05 Obstructive sleep apnea syndrome 48631091 Active 2023 Bren Valero NP [address] [facility], [address], [place], [address], [facility] 4 09:00:33 Obesity 738847472 Active 2023 Bren Valero NP [address] [facility], [address], [place], [address], [facility] 4 09:00:40 Congestive heart failure 78545014 Active 2023 Bren Valero NP [address] [facility], [address], [place], [address], [facility] 4 09:00:47 Recurrent falls 067439165 Active 2023 Bren Valero NP [address] [facility], [address], [place], [address], [facility] 4 09:00:54 Hypertensiv e disorder 41921461 Active 2023 Bren Valero NP [address] [facility], [address], [place], [address], [facility] 4 09:01:04 Asthenia 28569241 Active 2023 Bren Valero NP [address] [facility], [address], [place], [address], [facility] 4 09:04:03 Retention of urine 209603703 Active 2023 Bren Valero NP [address] [facility], [address], [place], [address], [facility] 4 09:07:12 Syncope 962104508 Active 2023 Bren Valero NP [address] [facility], [address], [place], [address], [facility] 4 09:09:13 Leukocytosi s 054122349 Active 2023 Bren Valero NP [address] [facility], [address], [place], [address], [facility] 4 09:13:27 Aspartate transaminas e level above reference range 8545152284051 08 Active 2023 Bren Valero NP [address] [facility], [address], [place], [address], [facility] 4 09:15:25 Loose stool 139947228 Active 2023 Bren Valero NP [address] [facility], [address], [place], [address], [facility] 4 09:24:36 Candidiasis 26807212 Active 2023 Bren Valero NP [address] [facility], [address], [place], [address], [facility] 4 09:28:02 Insomnia 810187747 Active 2023 Bren Valero NP [address] [facility], [address], [place], [address], [facility] 4 10:17:35 Malignant neoplasm of colon and/or rectum 625369697 Active 2023 Joselo Alonso MD [address] [facility], [address], [place], [address], [facility] 4 14:45:45 Problem Notes None recorded. Medical Equipment None Reported. Allergies Allergen ID Allergen Name Allergen Category Reaction Reaction Severity Criticality Documentation Date Start Date Code Code System Note Provider Name and Address Organization Details Recorded Time 79983 aspirin medicatio n other Not available unabletoasse 06/03/2023 1191 RxNorm Bren Valero NP [address] [facility], [address], [place], [address], [facility] 4 10:21:26 Medications Name Sig Start Date Stop Date Status Note LastModified by Organization Details LastModified Time Dilaudid 2 mg tablet Take 1 tablet every 4 hours by oral route as needed, for pain. active Not Available Not Available Not Avai labmatt morphine concentrate 100 mg/5 mL (20 mg/mL) [...] mm[Hg] 84 mm[Hg] Bren Valero NP [address] [facility] [address], [place], [address] , [facility] 06/03/2023 08:19:07 Date Recorded Heart rate Respiratory rate Body temperature Oxygen saturation Oxygen saturation in Arterial blood by Pulse oximetry Systolic blood pressure Diastolic blood pressure Provider Name and Address Organization Details Last Updated DateTime 100 /min 18 /min 97.6 [degF] 93 % 93 % 149 mm[Hg] 83 mm[Hg] Bren Valero NP [address] [facility] [address], [place], [address], [facility] 4 17:23:47 Date Recorded Systolic blood pressure Diastolic blood pressure Provider Name and Address Organization Details Last Updated DateTime 06/05/2023 177 mm[Hg] 100 mm[Hg] Joselo Alonso MD [address] [facility], [address], [place], [address], [facility] 06/05/2023 14:39:02 Date Recorded Heart rate Respiratory rate Body temperature Oxygen saturation Oxygen saturation in Arterial blood by Pulse oximetry Systolic blood pressure Diastolic blood pressure Provider Name and Address Organization Details Last Updated DateTime 98 /min 16 /min 97.9 [degF] 94 % 94 % 149 mm[Hg] 92 mm[Hg] Bren Valero NP [address] [facility], [address], [place], [address], [facility] 4 12:33:05 Social History Question Answer Notes LastModified by [employer] Details LastModified Time Tobacco Smoking Status Former Smoker Bren Valero NP [address] [facility], [facility] [[email or web address] [address], [place], [address], [facility] 06/03/2023 10:22:59 Do You Have An [...] Functional Status Question Answer Note LastModified by [employer] Details LastModified Time Do you use any [...] Organization Details Recorded Time Tdap 6 completed [facility] 06/04/2023 12:23:34 Td(adult) unspecified formulation 8 completed [facility] 06/04/2023 12:23:50 pneumococcal polysaccharide PPV23 6 completed [facility] 06/04/2023 12:24:08 influenza, unspecified formulation 3 completed [facility] 06/04/2023 12:24:27 SARS-COV-2 (COVID-19) vaccine, UNSPECIFIED 1 completed [facility] 06/04/2023 12:24:41 SARS-COV-2 (COVID-19) vaccine, UNSPECIFIED 1 completed [facility] 06/04/2023 12:24:50 SARS-COV-2 (COVID-19) vaccine, UNSPECIFIED 1 completed [facility] 06/04/2023 12:24:59 Past Encounters Encounter ID Performer Location Encounter Start Date Encounter Closed Date Diagnosis/Indication Diagnosis SNOMED-CT Code Diagnosis ICD10 Code Diagnosis Note [id number] Bren Valero NP [facility] [address] [place] [address] 06/03/2023 08:17:28 06/07/2023 10:25:32 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 0233116794 C80.1 rectosigmo id cancer with mets to [...] nmonitor bmp weekly while here Recurrent falls 64068369 2 R29.6 recurrent falls at homewhile in hosp felt due to syncope, dehydratio n and chemoCT head/spine neg for fxPT/OT treat and evalsuppor tive measures and safetymoni tor labs weekly and hydration status Asthenia 39784906 R53.1 felt very deconditio raquel in hosp and rec:PT OT eval and treat with rehab for strength, gait, balance, conditioni ng Tinea cruris 202602834 B 35.6 rash extensiveP kaylyn:nystat in powder topically tiddicfluc an 100 mg po daily x 4 more dosesclotr imazole betamethas one cream topcially bid to affected areainterd rywound consult Hypertensive disorder 38 006097 I10 metoprolol tartate 50 mg po bid hold SBP <90 HR <60captopr il 25 mg po bidmonitor bp, vitals Obstructiv e sleep apnea syndrome 40841919 G47.33 monitor resp status Congestive heart failure 57358773 I50.9 0-4 liters prn keep sat >90%monito r resp status, vitals, labs Obesity 975355996 E66.9 encourage good eating habitsweek ly wgtsdietic katiana consult for supportive diet and planmonito r Retention of urine 73786 4002 R33.9 retention of urine in hosp with foleyhad UTI resolved with ceftriaxon e x 7 days, however urine culture negremove jackson today, pvr q shift, sc > 350, reinsert jackson > 3 times sc, remove pvr if <350 x 3. Syncope 122727317 R55 found to be orthostati c with syncope in hospfelt resolved with fluids, no arrythmias foundateno lol changed to metoprolol in hospitalmo nitor Leukocytosis 135041880 D 72.829 felt rt steriods and tx with ceftriaxon e x 7 days with resolution monitor cbc weekly Aspartate transaminase level above reference range 6337023068 14547 R74.01 likely due to liver mets and hepatic steatosism onitor lfts weekly x 3 while in rehabavoid liver toxic meds/ pt on diflucanmo nitor closely Depressive disorder 3548 9007 F32.A sertraline 50 mg po dailymonit or Loose stool 528471456 R1 9.5 diphenoxyl ate-atropi ne 2.5/0.025 mg po qid prn loose stoolsmoni tor Candidiasis 17618521 B37 .9 minimal to no thrush noted on exam todaynysta tin susp po swish and spit qidalso on diflucanmo nitor Insomnia 104355623 G47.0 0 ambien 12.5 mg po qhsmonitor Chronic pain 26939700 G8 9.29 see mets cancerchan ge oxycodone 5 mg mild to mod pain, 10 mg mod to severe pain q 6 hours prn ( pt reports extreme pain and was using iv meds in hosp)dc percocet with liver disease [id number] Bren Valero NP [address] [address] 06/04/2023 16:56:47 06/07/2023 12:36:23 Herpes zoster 0882172 B02.9 shingles noted by wound team today [...] pt and staff educated on shinglesmo nitor [id number] Joselo Alonso MD [address] [address] 06/05/2023 14:38:30 06/08/2023 12:28:37 Malignant neoplasm of colon and/or rectum 613990211 C19 see HPIrectosi gmoid cancer s/p partial colectomy on chemothera pyLFTs felt secondary to probable metastatic spread to liverfollo [facility] with concernsmo nitor for pain control now on oxycodone for pain controlwil l start oxycontin 20 mg bidcontinu e oxycodone 10 mg q 5-10 mg q 6 pro breakthrou gh 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 6015920691 C80.1 see above with recent elevated LFTsmonito r CMP on current antiviralc oordinate care with oncology Acute kidney injury 1466 9001 N17.8 hx colon resection with ARF appears secondary to dehydratio nmonitor fluid intake and renal functionno w off diureticre cintia on captopril Recurrent falls 61864016 2 R29.6 PT OT Eval and treatmonit or fall risk Asthenia 57006306 R53.1 PT OT eval and treatmonit or for improvemen t in functional ability and need for increased assist in community Hypertensive disorder 38 320894 I10 metoprolol 50 mg bidcaptopr il 25 mg bidcurrent ly elevated will increase metoprolol to 75 mg bid with parameters in placediscu ssed with nursing Congestive heart failure 81399115 I50.22 carrying dxno longer on HCTZmonito r respirator y and fluid status Depressive disorder 3548 9007 F33.8 zoloft 50 mg qdmonitor for effectpsyc h eval prn Insomnia 242488845 G47.0 0 ambien 12.5 mg qhsmonitor for effect Acute infe ctive cystitis 141533035 N30.00 treated with course of rocephinmo nitor for recurrent disease Herpes zoster 4586137 B0 2.9 question zoster outbreak left groinnow on acyclovir to complete courseprec autions in placemonit or to resolution on gabapentin 300 mg tid at baseline Edema of scrotum 2973459 0 N50.89 see abovemonit or for impairment of circulatio n to tissueto ED for acute decompensa tion Candidiasis of skin 4988 3006 B37.2 severe candidiasi s not improving on nystatin powderwith erythema, weeping edema and maceration of skinstart diflucan 150 mg qd x 10 dayswound care to follow with continued dressing changes in skin folds [id number] Bren Valero NP [facility] [address] [facility] [place] [address] 06/08/2023 12:31:40 06/16/2023 11:13:19 Malignant neoplasm of colon and/or rectum 654199123 C19 see HPI for hxrectosig moid cancer s/p partial colectomy on chemothera pyLFTs felt secondary to probable metastatic spread to liverfollo wed at [facility] outptupdat e with concernsmo nitor for [...] next appt is for chemo, roughly around 05/30 per pt. 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 2903012025 C80.1 see above with recent elevated LFTsmonito r CMP on current antiviralc oordinate care with oncology Acute kidney injury 1466 9001 N17.8 hx colon resection with ARF appears secondary to dehydratio navoid nephrotoxi c medsccmoni tor fluid intake and renal functionno w off diureticre cintia on captoprilm onitor labs cbc and bmp abd liver profile weekly Asthenia 14318591 R53.1 PT OT eval and treatmonit or for improvemen t in functional ability and need for increased assist in community Recurrent falls 33531759 2 R29.6 PT OT Eval and treatmonit or fall risk Hypertensive disorder 38 649801 I10 contcaptop ril 25 mg bidmetopro lol to 75 mg bid with parameters in place(incr eased on 06/04) hr decreasing with slightly high at times still 80-90s.dis cussed with nursing Congestive heart failure 07132487 I50.22 carrying dxno longer on HCTZadd bnp to labsmonito r respirator y and fluid status Acute infe ctive cystitis 965833550 N30.00 resolvedtr eated with course of rocephin in hospmonito r for recurrent disease Depressive disorder 3548 9007 F33.8 contzoloft 50 mg qdmonitor for effectpsyc h eval prn Insomnia 673522846 G47.0 0 contambien 12.5 mg qhsmonitor for effect Herpes zoster 4615125 B0 2.9 question zoster outbreak left groinnow [...] changes in skin folds Edema of scrotum 0710670 0 N50.89 see abovemonit or for impairment of circulatio n to tissueto ED for acute decompensa tion Health Concerns Section Related Observation LastModified by Organization Detai ls LastModified Time None Recorded Concern Status LastModified by Organization Details LastModified Time None Recorded Advance Directives Directive N: Payers Insurance Date Sequence Insurance Name Policy Number Policy Ochoa Covered Member ID Ochoa Member ID Guarantor Name 06/16/2023 1 [facility] BCBS (PPO) [id number] Jeffery Marcus [id number] Jeffery Marcus 06/03/2023 1 MEDICARE B-[place]: [facility] [employer] Jeffery Marcus [id number] Jeffery Marcus Notes Date Note Type Note [...] with pmh above who is admitted to [facility] for rehab and continued care [place] [facility] [place] initially presenting with fall, weakness, [...] days ago and also follows with [facility] [place]. He is unsure of next appt with [...] high fall risk Bren Valero, BK [address] [facility], [address], [place], [address], [facility] 06/03/2023 10:48:27 06/04/19 24 text/htm l Pt [...] rehab and continued care after hospitalization [place] [facility] [place] -[place] initially presenting with fall, weakness, [...] is alert and awake and shows this SEW ON OPERATOR his panus with multiple vesicular open areas [...] signedBIMS MOLST high fall risk Bren Valero, SEW ON OPERATOR [address] [facility], [address], [place], [address], [facility] 06/04/2023 17:34:47 06/05/19 24 text/htm l Patient is a 72 yo male admit from hospital after presenting with weakness s/p fall. Found to be in ARF with elevated wbc count and UTI complicated by rectosigmoid cancer s/p partial colectomy on chemotherapy, concern for dehydration. Treated with rocephin and IVF. Elevated LFTs felt secondary to probable metastatic spread to liver. Followed at [facility] for above CA, now with chemo at [facility] Of note since arrival at facility patient dx with shingles and started on acyclovir present and questions answered PMH significant forcolon CA s/p partial colectomychfhtnobesityOSA admit to facility for continued care and therapy to eval and treat Joselo Alonso MD [address] [facility], [address], [place], [address], [facility] 06/05/2023 15:30:47 06/08/19 24 text/htm l Pt is seen for acute rounding visit today. 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 Beck, BRANDON, CHF, obesity, HTN. Jeffery is a 72 yo male admitted to [facility] from hospital 05/22-06/01 after presenting with weakness s/p fall. Found to be in ARF with leukocytosis felt due to UTI complicated by rectosigmoid cancer s/p partial colectomy on chemotherapy, and concern for dehydration. While in the hosp he tx with rocephin and IVF. Elevated LFTs felt likely to metastatic spread to liver. Followed at [facility] for above CA, now with chemo at [facility]. On 06/03 pt diagnosed with [...] would like to share some pictures. This SEW ON OPERATOR waited over 10 minutes for pt to show his picture on his phone which he cannot bring up regarding his wound. He refuses to left this SEW ON OPERATOR see his wound today. He reports standing and leg exercises daily with therapy but is too weak to do much more. He also reports pain 5/10 which is tolerable today on current pain regimen. Lungs clear and heart rate reg. No new concerns today. MOLST:Full code 06/03 23 signedBIMS MOLST high fall risk Bren Valero NP [address] [facility], [address], [place], [address], [facility] 06/08/2023 14:09:08
== END 2024-08-24 13:58 | disposition home or self-care (01) ==
LOC: HO.NEURO 13:57
PROVIDERS: PCP Internal Medicine
DX: R20.0 Anesthesia of skin (principal)
CPT/HCPCS: 95886; 95909

== ENCOUNTER → 2024-08-24 14:01 | Outpatient (BNV) | payer BC, MEDICARE, SELFPAY | PROVIDERS: PCP Internal Medicine; Visit Provider Physical Medicine & Rehabilitation | DX: G56.22 Lesion of ulnar nerve, left upper limb (principal) | CPT/HCPCS: 95886; 95909 ==

== ENCOUNTER 2024-09-05 13:54 | Outpatient (AMB) | payer BC, MEDICARE, SELFPAY ==
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
--- OUTSIDE RECORDS SUMMARY | 2024-09-05 14:45 | XMS_ITS | Data Portability ---
Author Organization [facility] [employer] [facility], Main Office Address [address] [place] [address] Care Team Providers Care Motorcycle Builder Name Role Phone BEREKET SURESH - 2ND FLOOR OTHER BERTHA BARRY Primary Care Provider Assessment No assessment recorded. Plan of Treatment Reminders Order Date Submit Date Provider Last Modified By Organization Details Last Modified Time Details Appointments None recorded. Lab None recorded. Referral None recorded. Procedures None recorded. Surgeries None recorded. Imaging None recorded. Medication Orders oxycodone 5 mg tablet 2023 024 [facility] , [address] [place] [address], [address], 4 08:37:48 Ambien CR 12.5 mg tablet,ext ended release 2023 024 [facility] , [address] [place] [address], [address], 4 08:37:48 Patient TargetsNo targets recorded. Patient Instructions Encounter Date Encounter Id Patient Instructions Last Modified By Organization Details Last Modified Time 06/04/2023 [id number] shingles: care instructions Not available 06/04/2023 17:34:45 Reason for Referral None Reported. Problems Name Problem SNOMED Code Status Onset Date Resolution Date Notes Provider Name and Address Organization Details Recorded Time 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 Active 2023 Bren Valero NP [address] [facility], [address], [place], [address], [facility] [employer] 4 08:59:38 Acute kidney injury 61967614 Active 2023 Bren Valero NP [address] [facility], [address], [place], [address], [facility] 4 08:59:46 Deondre singletary 629749466 Active 2023 Bren Valero NP [address], [address], [place], [address], [facility] 4 09:00:05 Obstructive sleep apnea syndrome 24662737 Active 2023 Bren Valero NP [address] [facility], [address], [place], [address], [facility] 4 09:00:33 Obesity 053213142 Active 2023 Bren Valero NP [address] [facility], [address], [place], [address], [facility] 4 09:00:40 Congestive heart failure 30266059 Active 2023 Bren Valero NP [address] [facility], [address], [place], [address], [facility] 4 09:00:47 Recurrent falls 126220222 Active 2023 Bren Valero NP [address] [facility], [address], [place], [address], [facility] 4 09:00:54 Hypertensiv e disorder 38974109 Active 2023 Bren Valero NP [address] [facility], [address], [place], [address], [facility] 4 09:01:04 Asthenia 51028963 Active 2023 Bren Valero NP [address] [facility], [address], [place], [address], [facility] 4 09:04:03 Retention of urine 728418459 Active 2023 Bren Valero NP [address] [facility], [address], [place], [address], [facility] 4 09:07:12 Syncope 667244660 Active 2023 Bren Valero NP [address] [facility], [address], [place], [address], [facility] 4 09:09:13 Leukocytosi s 716617647 Active 2023 Bren Valero NP [address] [facility], [address], [place], [address], [facility] 4 09:13:27 Aspartate transaminas e level above reference range 6148668723631 08 Active 2023 Bren Valero NP [address] [facility], [address], [place], [address], [facility] 4 09:15:25 Loose stool 953436291 Active 2023 Bren Valero NP [address] [facility], [address], [place], [address], [facility] 4 09:24:36 Candidiasis 47163936 Active 2023 Bren Valero NP [address] [facility], [address], [place], [address], [facility] 4 09:28:02 Insomnia 024146962 Active 2023 Bren Valero NP [address] [facility], [address], [place], [address], [facility] 4 10:17:35 Malignant neoplasm of colon and/or rectum 224662500 Active 2023 Joselo Alonso MD [address] [facility], [address], [place], [address], [facility] 4 14:45:45 Problem Notes None recorded. Medical Equipment None Reported. Allergies Allergen ID Allergen Name Allergen Category Reaction Reaction Severity Criticality Documentation Date Start Date Code Code System Note Provider Name and Address Organization Details Recorded Time 70607 aspirin medicatio n other Not available unabletoasse 06/03/2023 1191 RxNorm Bren Valero NP [address] [facility], [address], [place], [address], [facility] 4 10:21:26 Medications Name Sig Start [...] Date Recorded Heart rate Respiratory rate Systolic And Diastolic Provider Name and Address Organization Details Last Updated DateTime 06/03/2023 100 /min 18 /min 130/84 mm[Hg] Bren Valero NP [address] [facility] [address], [place], [address], [facility] 06/03/2023 08:19:07 Date Recorded Heart rate Respiratory rate Body temperature Oxygen saturation Oxygen saturation in Arterial blood by Pulse oximetry Systolic And Diastolic Provider Name and Address Organization Details Last Updated DateTime 100 /min 18 /min 97.6 [degF] 93 % 93 % 149/83 mm[Hg] Bren Valero NP [address] [facility] [address], [place], [address], [facility] 17:23:47 Date Recorded Systolic And Diastolic Provider Name and Address Organization Details Last Updated DateTime 06/05/2023 177/100 mm[Hg] Joselo Alonso MD [address] [facility], [address], [place], [address], [facility] 06/05/2023 14:39:02 Date Recorded Heart rate Respiratory rate Body temperature Oxygen saturation Oxygen saturation in Arterial blood by Pulse oximetry Systolic And Diastolic Provider Name and Address Organization Details Last Updated DateTime 98 /min 16 /min 97.9 [degF] 94 % 94 % 149/92 mm[Hg] Bren Valero NP [address] [facility], [address], [place], [address], [facility] 4 12:33:05 Social History Question Answer Notes LastModified by [employer] Details LastModified Time Tobacco Smoking Status Former Smoker Bren Valero NP [address] [facility], [address], [place], [address], [facility] 06/03/2023 10:22:59 Do You Have An [...] Functional Status Question Answer Note LastModified by Organizat ion Details LastModified Time Do you use any [...] Organization Details Recorded Time Tdap 6 completed [facility] 06/04/2023 12:23:34 Td(adult) unspecified formulation 8 completed [facility] 06/04/2023 12:23:50 pneumococcal polysaccharide PPV23 6 completed [facility] 06/04/2023 12:24:08 influenza, unspecified formulation 3 completed [facility] 06/04/2023 12:24:27 SARS-COV-2 (COVID-19) vaccine, UNSPECIFIED 1 completed [facility] 06/04/2023 12:24:41 SARS-COV-2 (COVID-19) vaccine, UNSPECIFIED 1 completed [facility] 06/04/2023 12:24:50 SARS-COV-2 (COVID-19) vaccine, UNSPECIFIED 1 completed [facility] 06/04/2023 12:24:59 Past Encounters Encounter ID Performer Location Encounter Start Date Encounter Closed Date Diagnosis/Indication Diagnosis SNOMED-CT Code Diagnosis ICD10 Code Diagnosis Note [id number] Bren Valero NP [address] [address] 06/03/2023 08:17:28 06/07/2023 10:25:32 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 2186760189 C80.1 rectosigmo id cancer with mets to [...] nmonitor bmp weekly while here Recurrent falls 53625118 2 R29.6 recurrent falls at homewhile in hosp felt due to syncope, dehydratio n and chemoCT head/spine neg for fxPT/OT treat and evalsuppor tive measures and safetymoni tor labs weekly and hydration status Asthenia 89126574 R53.1 felt very deconditio raquel in hosp and rec:PT OT eval and treat with rehab for strength, gait, balance, conditioni ng Tinea cruris 778114045 B 35.6 rash extensiveP kaylyn:nystat in powder topically tiddicfluc an 100 mg po daily x 4 more dosesclotr imazole betamethas one cream topcially bid to affected areainterd rywound consult Hypertensive disorder 38 273051 I10 metoprolol tartate 50 mg po bid hold SBP <90 HR <60captopr il 25 mg po bidmonitor bp, vitals Obstructiv e sleep apnea syndrome 30601340 G47.33 monitor resp status Congestive heart failure 01009853 I50.9 0-4 liters prn keep sat >90%monito r resp status, vitals, labs Obesity 567917922 E66.9 encourage good eating habitsweek ly wgtsdietic katiana consult for supportive diet and planmonito r Retention of urine 09616 4002 R33.9 retention of urine in hosp with foleyhad UTI resolved with ceftriaxon e x 7 days, however urine culture negremove jackson today, pvr q shift, sc > 350, reinsert jackson > 3 times sc, remove pvr if <350 x 3. Syncope 082758383 R55 found to be orthostati c with syncope in hospfelt resolved with fluids, no arrythmias foundateno lol changed to metoprolol in hospitalmo nitor Leukocytosis 953491247 D 72.829 felt rt steriods and tx with ceftriaxon e x 7 days with resolution monitor cbc weekly Aspartate transaminase level above reference range 6556842596 93560 R74.01 likely due to liver mets and hepatic steatosism onitor lfts weekly x 3 while in rehabavoid liver toxic meds/ pt on diflucanmo nitor closely Depressive disorder 3548 9007 F32.A sertraline 50 mg po dailymonit or Loose stool 682426978 R1 9.5 diphenoxyl ate-atropi ne 2.5/0.025 mg po qid prn loose stoolsmoni tor Candidiasis 54615622 B37 .9 minimal to no thrush noted on exam todaynysta tin susp po swish and spit qidalso on diflucanmo nitor Insomnia 743628505 G47.0 0 ambien 12.5 mg po qhsmonitor Chronic pain 12796522 G8 9.29 see mets cancerchan ge oxycodone 5 mg mild to mod pain, 10 mg mod to severe pain q 6 hours prn ( pt reports extreme pain and was using iv meds in hosp)dc percocet with liver disease [id number] [facility] [address] 06/04/2023 16:56:47 06/07/2023 12:36:23 Herpes zoster 6731620 B02.9 shingles noted by wound team today [...] pt and staff educated on shinglesmo nitor [id number] [facility]onso [facility] [address] 06/05/2023 14:38:30 06/08/2023 12:28:37 Malignant neoplasm of colon and/or rectum 759849055 C19 see HPIrectosi gmoid cancer s/p partial colectomy on chemothera pyLFTs felt secondary to probable metastatic spread to liverfollo [facility] with concernsmo nitor for pain control now on oxycodone for pain controlwil l start oxycontin 20 mg bidcontinu e oxycodone 10 mg q 5-10 mg q 6 pro breakthrou gh 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 6116458837 C80.1 see above with recent elevated LFTsmonito r CMP on current antiviralc oordinate care with oncology Acute kidney injury 1466 9001 N17.8 hx colon resection with ARF appears secondary to dehydratio nmonitor fluid intake and renal functionno w off diureticre cintia on captopril Recurrent falls 67688983 2 R29.6 PT OT Eval and treatmonit or fall risk Asthenia 84610012 R53.1 PT OT eval and treatmonit or for improvemen t in functional ability and need for increased assist in community Hypertensive disorder 38 129331 I10 metoprolol 50 mg bidcaptopr il 25 mg bidcurrent ly elevated will increase metoprolol to 75 mg bid with parameters in placediscu ssed with nursing Congestive heart failure 08156157 I50.22 carrying dxno longer on HCTZmonito r respirator y and fluid status Depressive disorder 3548 9007 F33.8 zoloft 50 mg qdmonitor for effectpsyc h eval prn Insomnia 650960177 G47.0 0 ambien 12.5 mg qhsmonitor for effect Acute infe ctive cystitis 918045756 N30.00 treated with course of rocephinmo nitor for recurrent disease Herpes zoster 6528449 B0 2.9 question zoster outbreak left groinnow on acyclovir to complete courseprec autions in placemonit or to resolution on gabapentin 300 mg tid at baseline Edema of scrotum 9322892 0 N50.89 see abovemonit or for impairment of circulatio n to tissueto ED for acute decompensa tion Candidiasis of skin 4988 3006 B37.2 severe candidiasi s not improving on nystatin powderwith erythema, weeping edema and maceration of skinstart diflucan 150 mg qd x 10 dayswound care to follow with continued dressing changes in skin folds [id number] Bren Valero NP [address] [address] 06/08/2023 12:31:40 06/16/2023 11:13:19 Malignant neoplasm of colon and/or rectum 139060920 C19 see HPI for hxrectosig moid cancer s/p partial colectomy on chemothera pyLFTs felt secondary to probable metastatic spread to liverfollo wed at [facility] outptupdat e with concernsmo nitor for [...] tor for relief 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 4151791399 C80.1 see above with recent elevated LFTsmonito r CMP on current antiviralc oordinate care with oncology Acute kidney injury 1466 9001 N17.8 hx colon resection with ARF appears secondary to dehydratio navoid nephrotoxi c medsccmoni tor fluid intake and renal functionno w off diureticre cintia on captoprilm onitor labs cbc and bmp abd liver profile weekly Asthenia 40266495 R53.1 PT OT eval and treatmonit or for improvemen t in functional ability and need for increased assist in community Recurrent falls 49385274 2 R29.6 PT OT Eval and treatmonit or fall risk Hypertensive disorder 38 422753 I10 contcaptop ril 25 mg bidmetopro lol to 75 mg bid with parameters in place(incr eased on 06/04) hr decreasing with slightly high at times still 80-90s.dis cussed with nursing Congestive heart failure 07568919 I50.22 carrying dxno longer on HCTZadd bnp to labsmonito r respirator y and fluid status Acute infe ctive cystitis 675869420 N30.00 resolvedtr eated with course of rocephin in hospmonito r for recurrent disease Depressive disorder 3548 9007 F33.8 contzoloft 50 mg qdmonitor for effectpsyc h eval prn Insomnia 211551925 G47.0 0 contambien 12.5 mg qhsmonitor for effect Herpes zoster 2238652 B0 2.9 question zoster outbreak left groinnow [...] changes in skin folds Edema of scrotum 0440730 0 N50.89 see abovemonit or for impairment [...] [place] Member ID Guarantor Name 06/16/2023 1 [employer] [facility] BC[employer] ([employer]) [id number] Jeffery Marcus [id number] Jeffery Marcus 06/03/2023 1 MEDICARE B-[place]: [employer] Jeffery Marcus [id number] Jeffery Marcus Notes Date Note Type [...] with pmh above who is admitted to [facility] for rehab and continued care after hospitalization at [facility] from 05/22/-06/02/23 initially [...] signedBIMS MOLST high fall risk Bren Valero, DIESEL ENGINE PIPE FITTER [address] [facility], [address], [place], [address], [facility] [employer] 06/03/2023 10:48:27 06/04/19 24 text/htm l Pt is seen for an acute visit for nursing concern of shingles per wound PA. 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 Beck, BRANDON, CHF, obesity, HTN. Jeffery a 72 yo male with pmh above who is admitted to [facility] for rehab and continued care after hospitalization at [facility] from -06/02/23 initially presenting with fall, weakness, [...] is alert and awake and shows this DIESEL ENGINE PIPE FITTER his panus with multiple vesicular open areas [...] signedBIMS MOLST high fall risk Bren Valero, DIESEL ENGINE PIPE FITTER [address] [facility], [address], [place], [address], [facility] [employer] 06/04/2023 17:34:47 06/05/19 24 text/htm l Patient is a 72 yo male admit from hospital after presenting with weakness s/p fall. Found to be in ARF with elevated wbc count and UTI complicated by rectosigmoid cancer s/p partial colectomy on chemotherapy, concern for dehydration. Treated with rocephin and IVF. Elevated LFTs felt secondary to probable metastatic spread to liver. Followed at [facility] for above CA, now with chemo at [facility] Of note since arrival at facility patient dx with shingles and started on acyclovir present and questions answered PMH significant forcolon CA s/p partial colectomychfhtnobesityOSA admit to facility for continued care and therapy to eval and treat Joselo Alonso MD [address] [facility], [address], [place], [address], [facility] 06/05/2023 15:30:47 06/08/19 24 text/htm l Pt is seen for acute rounding visit today. 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 Beck, BRANDON, CHF, obesity, HTN. Jeffery is a 72 yo male admitted to [facility] from hospital 05/22-06/01 after presenting with weakness s/p fall. Found to be in ARF with leukocytosis felt due to UTI complicated by rectosigmoid cancer s/p partial colectomy on chemotherapy, and concern for dehydration. While in the hosp he tx with rocephin and IVF. Elevated LFTs felt likely to metastatic spread to liver. Followed at [facility] for above CA, now with chemo at [facility]. On 06/03 pt diagnosed with shingles [...] would like to share some pictures. This DIESEL ENGINE PIPE FITTER waited over 10 minutes for pt to show his picture on his phone which he cannot bring up regarding his wound. He refuses to left this DIESEL ENGINE PIPE FITTER see his wound today. He reports standing and leg exercises daily with therapy but is too weak to do much more. He also reports pain 5/10 which is tolerable today on current pain regimen. Lungs clear and heart rate reg. No new concerns today. MOLST:Full code 06/03 23 signedBIMS 15/15MOLST high fall risk Bren Valero NP [address] [facility], [address], [place], [address], [facility] 06/08/2023 14:09:08
--- OUTSIDE RECORDS SUMMARY | 2024-09-05 14:45 | XMS_ITS | Clinical Summary ---
Author Organization [facility] Address [address] [place] [address] Care Team Providers Care Crozer Name Role Phone Pcp, No Primary Care [...] topic Insurance MEDICARE PART A & B [facility] Care Teams Crozer Relationship Specialty Start Date End Date Pcp, No PCP - General General Medicine 11/23/22
== END 2024-09-05 14:57 | disposition home or self-care (01) ==
PROVIDERS: PCP Internal Medicine; Visit Provider Urology
DX: N32.0 Bladder-neck obstruction (principal); N52.9 Male erectile dysfunction, unspecified; R35.0 Frequency of micturition
CPT/HCPCS: 99204

== ENCOUNTER → 2024-09-05 13:54 | Outpatient (BNVA) | payer BC, MEDICARE, SELFPAY | PROVIDERS: PCP Internal Medicine; Visit Provider Urology | DX: N32.0 Bladder-neck obstruction (principal); N52.9 Male erectile dysfunction, unspecified; R35.0 Frequency of micturition | CPT/HCPCS: 51798 ==

== ENCOUNTER 2024-09-27 | Outpatient (REF) | payer MEDICARE, BC, SELFPAY ==
--- NOTE | ~2024-09-27 | XR_ITS ---
EXAMINATION: XR FOOT, LEFT CLINICAL INFORMATION: Lt ankle, foot pain, edema bruising s/p fall 09/26 COMPARISON: None available. TECHNIQUE: AP, lateral, and oblique views of the left foot. FINDINGS: There appear to be fractures involving the second, third, and fourth proximal metatarsals at the metaphyseal levels. The Lisfranc interval appears preserved. Pes planus. Hammertoe deformities. Mild arthritis throughout the intertarsal and tarsometatarsal joints. Arthritis noted in the subtalar joints. There is a moderate-sized plantar calcaneal spur. There is diffuse soft tissue swelling most prominent dorsally. XR/XR foot LT min 3V IMPRESSION: 1. There are acute or subacute fractures involving the proximal metaphyses of the second, third, and fourth metatarsals, and possibly the first. Lisfranc interval appears preserved, although findings appear to represent a Lisfranc fracture pattern. 2. Extensive dorsal soft tissue swelling. 3. Pes planus deformity. Electronically signed by: Carlos Kelsey MD 09/27/2024 04:19 PM EDT
--- NOTE | ~2024-09-27 | XR_ITS ---
EXAMINATION: XR ANKLE, left CLINICAL INFORMATION: Lt ankle, foot pain, edema bruising s/p fall 09/26 COMPARISON: None available. TECHNIQUE: AP, lateral, and mortise views lower extremity joint, ankle. FINDINGS: Ankle mortise is congruent. There is no widening of the syndesmosis. There is focal low density in the medial talar dome. There is a moderate plantar calcaneal enthesiophytes. There is mild degenerative irregularity of the medial malleolus. 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 Electronically signed by: Archie Nettles MD 09/27/2024 04:14 PM EDT
--- OUTSIDE RECORDS SUMMARY | 2024-11-01 16:06 | XMS_ITS ---
Author Name [facility] Organization Unknown Allergies Allergen Reaction Severity Comment Documented Date Source Statu s [facility] 11/24/2022 CCT active Problems Problem Status Onset Date Problem Type Date of Resoluti on Source Nondisplaced fracture of fifth metatarsal bone, unspecified foot, initial encounter for closed fracture active EncounterDiagnosisAct CCT Encounters Encounter Type Encounter Reason Primary Diagnosis Location Date Ambulatory [facility] 11/24/2022 Ambulatory Nondisplaced fracture of fifth metatarsal bone, unspecified foot, initial encounter for closed fracture Nondisplaced fracture of fifth metatarsal bone, unspecified foot, initial encounter for closed fracture [facility] 11/24/2022 Care Team Organization Name Specialty Phone Email Start Date End Da te [facility] PCP,No Primary Care 11/24/2022 05/17/2024 [facility] NO PCP Primary Care 11/24/2022 12/29/2022 [facility] 11/24/2022 12/17/2022
== END 2024-09-27 00:01 | disposition home or self-care (01) ==
LOC: HO.XRAY
PROVIDERS: PCP Internal Medicine; Visit Provider Nurse Practitioner Family
DX: S99.922A Unspecified injury of left foot, initial encounter (principal); S99.912A Unspecified injury of left ankle, initial encounter; M25.572 Pain in left ankle and joints of left foot; M79.672 Pain in left foot; R60.0 Localized edema; W19.XXXA Unspecified fall, initial encounter
CPT/HCPCS: 73610; 73630

== ENCOUNTER → 2024-09-27 15:41 | Outpatient (BNV) | payer BC, MEDICARE, SELFPAY | PROVIDERS: PCP Internal Medicine; Visit Provider Radiology Diagnostic Radiology | DX: M77.32 Calcaneal spur, left foot (principal); S92.302A Fracture of unspecified metatarsal bone(s), left foot, initial encounter for closed fracture | CPT/HCPCS: 73610; 73630 ==

== ENCOUNTER 2024-11-01 11:42 | Emergency (ER) | payer BC, MEDICARE, SELFPAY ==
--- NOTE | ~2024-11-01 | XR_ITS ---
EXAMINATION: XR ANKLE, left CLINICAL INFORMATION: pain COMPARISON: September 27, 2024 TECHNIQUE: AP, lateral, and mortise views lower extremity joint, ankle. FINDINGS: Ankle mortise is congruent. There is no widening of the syndesmosis. Small marginal sites are evident involving medial malleolus. Focal osteopenia in the medial talar dome is not appreciated on the current exam. There are moderate plantar calcaneal enthesophytes. XR/XR ankle LT min 3V IMPRESSION: Mild degenerative changes in the medial ankle joint. Moderate calcaneal spur. Electronically signed by: Archie Nettles MD 11/01/2024 01:52 PM EDT
--- NOTE | ~2024-11-01 | XR_ITS ---
EXAMINATION: XR CHEST CLINICAL INFORMATION: weakness COMPARISON: June 26, 2024 TECHNIQUE: Frontal view of the chest was obtained. FINDINGS: The patient rotated to the left on the x-ray Right-sided Port-A-Cath terminating in the superior cavoatrial junction is again noted. Heart size is within normal limits. There is patchy opacity in the left lung base and blunting of the costophrenic angle. There are coarse markings in the right lung base. Lungs are otherwise clear. XR/XR chest 1V IMPRESSION: Developing left basilar opacity and small pleural effusion. Left basilar pneumonia versus atelectasis. Electronically signed by: Archie Nettles MD 11/01/2024 01:55 PM EDT
[2024-11-01 11:59] VITALS: BP 116/58; BP 142/98; PULSE 78; PULSE 99; RESP 18; TEMP 37; O2SAT 92; O2SAT 94; BMI 38.0
--- NOTE | 2024-11-01 13:29 | ECG_ITS ---
Test Reason : fall Blood Pressure : */* mmHG Vent. Rate : 71 BPM Atrial Rate : 71 BPM P-R Int : 160 ms QRS Dur : 132 ms QT Int : 420 ms P-R-T Axes : 3 -20 51 degrees QTcB Int : 456 ms Normal sinus rhythm Non-specific intra-ventricular conduction block Nonspecific T wave abnormality Abnormal ECG When compared with ECG of 26-Jun-2024 15:20, Vent. rate has decreased by 50 bpm Non-specific intra-ventricular conduction block has replaced Right bundle branch block Referred By: Preston Phelps Electronically Signed By: Noe Sams
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
--- NOTE | 2024-11-01 13:59 | PC.NURSE ---
son called stating he does live with his father but that ig his dad feels like he is safe to go home than he thinks that it would be fine for him to go home
[2024-11-01] MEDS: oxyCODONE HCl Immed Release 5 MG TABLET PO (14:04)
--- OUTSIDE RECORDS SUMMARY | 2024-11-01 14:48 | XMS_ITS | Encounter Summary ---
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 Role Phone Alban Abrams MD Primary Care Provider [phone] Self-Referred, Patient Unavailable Unavailab Jair Rodriguez MD, PhD Unavailable [phone] Jair Gonzalez MD, PhD Unavailable [phone] Raymon Norman MD Unavailable [phone] Shiloh Beck MD Unavailable [phone] Encounter Details Date Type Department Care Team (Late st Contact Info) Description 09/29/2023 Procedure Pass [facility] [address] [place] [address] Social History Tobacco Use Types Packs/Day Years Used Date Smoking Tobacco: Former Cigarettes 3 10 1 980 - 1989 Smokeless Tobacco: Never Comments:25 years ago Alcohol Use Standard Drinks/Week Comments No 0 (1 standard drink = 0.6 oz pur e alcohol) Education Answer Date Recorded Are you interested in more education? Not on surya e 06/27/2022 Are you concerned about learning? Not on file 06/27/2022 No 06/27/2022 No 06/27/2022 Digital Access Answer Date Recorded No 07/26/2022 No 07/26/2022 Reliable internet access at home? Not on file 07/26/2022 Device with a working camera? Not on file Sex and Gender Information Value Date Recorded Sex Assigned at Not on file Legal Sex Male 5:42 PM EST Gender Identity Not on file Sexual Orientation Not on file documented as of this encounter Plan of Treatment Upcoming Encounters Date Type Department Care Team (Late st Contact Info) Description 10/12/[address] [facility], [facility], [place] [address] [facility] [place] [address] 10/12/[address] [facility], [facility], [place] [address] [facility], [facility] [address] [place] [address] 01/11/2025 6:45 AM EST Blood Draw [facility], [facility], Imaging [email or web address] [address] [place] [address], [facility] [address] [place] [address] Jair Gonzalez MD, PhD [address] [place] [email or web address] 01/11/2025 8:[address] [facility], [facility], [place] [address] [facility], [facility] [address] [place] [address] Jair Gonzalez MD, PhD [address] [place] [email or web address] 01/11/2025 10:30 AM EST Office [facility], [address] 10[address] [place] [address] Jair Gonzalez MD, PhD [address] [place] [email or web address] documented as of this encounter Visit Diagnoses Not on filedocumented in this encounter Care Teams Commercial Construction Estimator Relationship Specialty Start Date End Date Alban Abrams MD [address] [place] [address] [facility] [place] [place] [address] PCP - General Internal Medicine 02/17/17 Self-Referred, Patient Referring Physician 02/17/17 Jari Gonzalez MD, PhD [address] [place] [address] [email or web address] Primary Oncologist Oncology 02/17/17 Jair Gonzalez MD, PhD [address] [place] [address] [email or web address] Primary Oncologist Oncology 02/17/17 Raymon Norman MD [address] [place] [id number] [email or web address] Primary Oncologist Surgical Oncology 03/17/17 Shiloh Beck MD [address] [place] [email or web address] 12/30/17 documented as of this encounter Additional Source Comments The information contained in this document represents components of the legal health record. It is not the complete legal health record.[facility]
--- OUTSIDE RECORDS SUMMARY | 2024-11-01 14:48 | XMS_ITS | Encounter Summary ---
Author Organization [facility] Address [address] [place] [address] Phone Care Team Providers Care Tree Scout Name Role Phone Alban Abrams MD Primary Care Provider [phone] Self-Referred, Patient Unavailable Unavailab Jair Rodriguez MD, PhD Unavailable [phone] Jair Gonzalez MD, PhD Unavailable [phone] Raymon Norman MD Unavailable [phone] Shiloh Beck MD Unavailable [phone] Reason for Referral * MRI/CAT Scan - Closed Specialty Diagnoses / Procedures Referred By Alessandra t Referred To Contact Radiology Diagnoses Malignant neoplasm of colon, unspecified part of colon Procedures CT Abdomen/Pelvis CT CHEST Jair Gonzalez MD, PhD [address] [place] [address] Phone: tel: fax: mailto:[email or web address] Referral ID Status Reason Start Date Expiration Date Visits Re quested Visits Authorized [id number] Closed 10/09/2024 04/08/2025 1 1 * MRI/CAT Scan - Closed Specialty Diagnoses / Procedures Referred By Contac t Referred To Contact Radiology Diagnoses Malignant neoplasm of colon, unspecified part of colon Procedures CT Chest CT ABDOMEN/PELVIS Jair Gonzalez MD, PhD [address] [place] [address] Phone: tel: fax: mailto:[email or web address] Referral ID Status Reason Start Date Expiration Date Visits Re quested Visits Authorized [id number] Closed 10/09/2024 04/08/2025 1 1 Encounter Details Date Type Department Care Team (Late st Contact Info) Description 10/09/2024 Orders Only [facility] [address] 10th [place] [address] Jair Gonzalez MD, PhD [address] [place] [address] [email or web address] Malignant neoplasm of colon, unspecified part of colon (Primary Dx) Social History Tobacco Use Types Packs/Day Years Used Date Smoking Tobacco: Former Cigarettes 3 10 1 - 1989 Smokeless Tobacco: Never Comments:25 years ago Alcohol Use Standard Drinks/Week Comments No 0 (1 standard drink = 0.6 oz pur e alcohol) Education Answer Date Recorded Are you interested in more education? Not on surya e 06/27/2022 Are you concerned about learning? Not on file 06/27/2022 No 06/27/2022 No 06/27/2022 Food Answer Date Recorded Within the past 6 months we worried whether our food would run out before we got money to buy more. Never True 10/26/2023 Within the past 6 months the food we bought just didn't last and we didn't have enough money to get more. Never True Residential Stability Answer Date Recor ded What is your housing situation today? I have enmanuel sing 10/26/2023 How many times have you move d in the past 12 months? Zero (I did not move) 10/26/2023 Paying for Meds Answer Date Recorded Do you have trouble paying for medicines? No 10/26/2023 Paying Utility Bills Answer Date Record ed Do you have trouble paying your heating or elect ricity bill? No 10/26/2023 Transportation Answer Date Recorded Has the lack of transportati on kept you from medical appointments or from getting medications? No 10/26/2023 Digital Access Answer Date Recorded No 10/26/2023 Yes 10/26/2023 Do you have reliable internet access at home? Ye s 10/26/2023 Do you have a device (e.g., phone, tablet, computer) with a working camera? Yes 10/26/2023 Intimate Partner Violence Answer Date R ecorded Are you denied basic needs s uch as food, clothing, or medical care? No 01/25/2024 In the past 12 months have y ou been in a relationship with a person who hurts, threatens, or tries to control you? No 01/25/2024 Are you denied basic needs s uch as food, clothing, or medical care? No 01/25/2024 In the past 12 months have y ou been in a relationship with a person who hurts, threatens, or tries to control you? No 01/25/2024 Sex and Gender Information Value Date Recorded Sex Assigned at Not on file Legal Sex Male 5:42 PM EST Gender Identity Not on file Sexual Orientation Not on file documented as of this encounter Plan of Treatment Upcoming Encounters Date Type Department Care Team (Late st Contact Info) Description 10/12/2024 Procedure Pass [facility] Imaging Department, [facility], [place] [address] [place] [address] 10/12/2024 Procedure Pass [facility] Imaging Department, [facility] [place] [address], [address] [place] [address] 01/11/2025 6:45 AM EST Blood Draw [facility] Imaging Department, [facility], Imaging [id number] [address] [place] [address] Jair Gonzalez MD, PhD [address] [place] [email or web address] 01/11/2025 8:40 AM EST Appointment [facility] Imaging Department, [facility] [place] [address], [address] [place] [address] Jair Gonzalez MD, PhD [address] [place] [address] [email or web address] 01/11/2025 10:30 AM EST Office Visit [facility] [address], 10th [place] [address] Jair Gonzalez MD, PhD [address] [place] [address] [email or web address] documented as of this encounter Results * CT ABDOMEN/PELVIS WITH CONTRAST (10/11/2024 4:05 PM EDT) Anatomical Region Laterality Modality Abdomen, Pelvis Computed Tomogra phy Other 10/12/2024 7:51 AM EDT Impressions 10/12/2024 11:59 PM EDT 1. Decrease in size of post ablation zones in the liver. 2. New trace fluid in the mesentery compared to outside CT 05/2024 similar trace fluid along the left paracolic gutter. 3. No definite new sites of metastatic disease within the abdomen and pelvis. 4. Please see same day separately reported CT chest. ATTESTATION: Manisha Mckeon, as teaching physician have reviewed the images, if any, for this patient's exam, and if necessary, have edited the report originally created by D[employer] Grof. 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 Restaging.. TECHNIQUE: Multidetector-row CT of the abdomen and pelvis was performed after administration of intravenous contrast using tailored dose modulation techniques. Images were reconstructed in the axial, coronal, and sagittal planes. COMPARISON: CT ABDOMEN/PELVIS OUTSIDE (NO INTERPRETATION) ; CT ABDOMEN/PELVIS WITH CONTRAST ; AMIGO PET/CT (RAD-LED) ; MRI ABDOMEN WITH AND WITHOUT CONTRAST FINDINGS: Lower Chest: CT chest from the same day is reported separately. Liver: Reduced attenuation consistent with fatty liver. Unchanged morphology with hypertrophy of the caudate lobe. Status post cryoablation of 3 liver metastases with decrease in size of the hypoattenuating ablation zones compared to retrospective measurements on CT 04/2024 given similar phase of imaging: - 1.6 x 1.0 cm (previously 3.2 x 2.0 cm) segment 4A (1:17) - 1.3 x 0.8 cm (previously 2.9 x 1.4 cm) segment 8 pericaval region (1:19) - 2.8 x 1.5 cm (previously 3.2 x 2.0 cm) segment 2/3 lesion (1:20) Slight decrease in size of a 7.9 x 5.4 cm (previously 8.8 x 5.9 cm) ablation zone abutting the left hepatic lobe and gastric margin (1:14). The subtle 0.8 cm hypodense focus in segment 7/[address] 04/2024 is not seen with certainty on current exam. Biliary: No biliary ductal dilatation. Cholelithiasis. Spleen: Enlarged spleen measuring 13.7 cm craniocaudad (previously 14.2 cm). No focal lesions. Pancreas: The T2 hyperintense cystic foci in the pancreatic tail are not visualized by CT likely due to size and differences in modality compared to MRI 11/2023. No ductal dilatation. Adrenal Glands: No nodules. Kidneys/Ureters: Right kidney/ureter: No solid masses or hydronephrosis. There is a punctate (0.1 cm) nonobstructing stone at the lower pole (5:68). Cortical thinning/scarring at the upper pole. Left kidney/ureter: No solid masses or hydronephrosis. Multiple nonobstructing stones measuring 0.5-0.6 cm within the mid pole collecting system (5:77-78) and 0.1-0.2 cm in the lower pole collecting system (5:75). No change in a few cortical based and exophytic hypodense lesions previously characterized as cysts on MRI 11/2023. Bowel: Status post low anterior resection with similar appearance of the anastomosis accounting for differences in the degree of distention. Normal caliber appendix. Colonic diverticulosis. No distention or wall thickening. Peritoneum/Retroperitoneum: No change in trace fluid along the left paracolic gutter adjacent to the mid to distal descending colon (1:47, 67) compared to outside CT 05/2024; however, appears new compared to CT 04/2024. New trace amount stranding fluid in the mesentery of the upper pelvis (1:67). Similar appearance of trace presacral stranding/fluid (6:104) measuring up to 1.0 cm in width at the level of the S2 vertebral body. No pneumoperitoneum. Lymph Nodes: No enlarged lymph nodes by short axis size criteria. Pelvic Organs/Bladder: Enlarged prostate measures 5.1 cm transverse. No change in mild asymmetry of the seminal vesicles, left greater than right. Moderate distention of the discrete wall abnormality. Vessels: Mild to moderate atherosclerotic calcification of the nonaneurysmal abdominal aorta and branch vessels. Bones/Soft Tissues: No destructive osseous lesions. Diffuse osseous demineralization. Mild multilevel changes in the imaged thoracolumbar spine. Lucent fracture lines with surrounding sclerosis and callus formation in the left lateral sixth, seventh, eighth, and ninth ribs likely healing fractures. Postsurgical changes along the anterior abdominal wall.Small right greater fat-containing inguinal hernia. 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 TECHNIQUE: Multidetector-row CT of the abdomen and pelvis was performedafter administration of intravenous contrast using tailored dosemodulation techniques. Images were reconstructed in the axial, coronal,and sagittal planes. COMPARISON: CT ABDOMEN/PELVIS OUTSIDE (NO INTERPRETATION) ; CTABDOMEN/PELVIS WITH CONTRAST ; AMIGO PET/CT (RAD-LED); MRI ABDOMEN WITH AND WITHOUT CONTRAST FINDINGS: Lower Chest: CT chest from the same day is reported separately. Liver: Reduced attenuation consistent with fatty liver. Unchangedmorphology with hypertrophy of the caudate lobe. Status post cryoablationof 3 liver metastases with decrease in size of the hypoattenuatingablation zones compared to retrospective measurements on CT 04/2024 givensimilar phase of imaging: - 1.6 x 1.0 cm (previously 3.2 x 2.0 cm) segment 4A (1:17) - 1.3 x 0.8 cm (previously 2.9 x 1.4 cm) segment 8 pericaval region(1:19) - 2.8 x 1.5 cm (previously 3.2 x 2.0 cm) segment 2/3 lesion (1:20) Slight decrease in size of a 7.9 x 5.4 cm (previously 8.8 x 5.9 cm)ablation zone abutting the left hepatic lobe and gastric margin (1:14). The subtle 0.8 cm hypodense focus in segment 7/[address] 04/2024 is not seenwith certainty on current exam. Biliary: No biliary ductal dilatation. Cholelithiasis. Spleen: Enlarged spleen measuring 13.7 cm craniocaudad (previously 14.2cm). No focal lesions. Pancreas: The T2 hyperintense cystic foci in the pancreatic tail are notvisualized by CT likely due to size and differences in modality comparedto MRI 11/2023. No ductal dilatation. Adrenal Glands: No nodules. Kidneys/Ureters: Right kidney/ureter: No solid masses or hydronephrosis. There is apunctate (0.1 cm) nonobstructing stone at the lower pole (5:68). Corticalthinning/scarring at the upper pole. Left kidney/ureter: No solid masses or hydronephrosis. Multiplenonobstructing stones measuring 0.5-0.6 cm within the mid pole collectingsystem (5:77-78) and 0.1-0.2 cm in the lower pole collecting system(5:75). No change in a few cortical based and exophytic hypodense lesionspreviously characterized as cysts on MRI 11/2023. Bowel: Status post low anterior resection with similar appearance of theanastomosis accounting for differences in the degree of distention. Normalcaliber appendix. Colonic diverticulosis. No distention or wallthickening. Peritoneum/Retroperitoneum: No change in trace fluid along the leftparacolic gutter adjacent to the mid to distal descending colon (1:47, 67)compared to outside CT 05/2024; however, appears new compared to CT 04/2024.New trace amount stranding fluid in the mesentery of the upper pelvis(1:67). Similar appearance of trace presacral stranding/fluid (6:104)measuring up to 1.0 cm in width at the level of the S2 vertebral body. Nopneumoperitoneum. Lymph Nodes: No enlarged lymph nodes by short axis size criteria. Pelvic Organs/Bladder: Enlarged prostate measures 5.1 cm transverse. Nochange in mild asymmetry of the seminal vesicles, left greater than right.Moderate distention of the discrete wall abnormality. Vessels: Mild to moderate atherosclerotic calcification of thenonaneurysmal abdominal aorta and branch vessels. Bones/Soft Tissues: No destructive osseous lesions. Diffuse osseousdemineralization. Mild multilevel changes in the imaged thoracolumbarspine. Lucent fracture lines with surrounding sclerosis and callusformation in the left lateral sixth, seventh, eighth, and ninth ribslikely healing fractures. Postsurgical changes along the anterior abdominal wall.Small right greaterfat-containing inguinal hernia. IMPRESSION: 1. Decrease in size of post ablation zones in the liver. 2. New trace fluid in the mesentery compared to outside CT 05/2024 similartrace fluid along the left paracolic gutter. 3. No definite new sites of metastatic disease within the abdomen andpelvis. 4. Please see same day separately reported CT chest. ATTESTATION: Manisha Mckeon, as teaching physician have reviewed theimages, if any, for this patient's exam, and if necessary, have edited thereport originally created by Dread Chawla. us Jair Gonzalez MD, PhD IMG CT ABD/PELVIS Final Result * CT CHEST WITH CONTRAST (10/11/2024 4:05 PM EDT) Anatomical Region Laterality Modality Chest Computed Tomogra phy Other 10/12/2024 8:25 AM EDT Impressions 10/12/2024 8:56 AM EDT 1. Decreased size of pulmonary metastases. 2. Healed right posterolateral fourth rib fracture, new from prior. Narrative 10/12/2024 8:[address] CHEST WITH CONTRAST Referring clinician's provided indication for this examination in Epic: * Colon cancer, restaging TECHNIQUE: Multidetector CT of the chest was performed with intravenous contrast using tailored dose modulation techniques. COMPARISON: CT CHEST OUTSIDE (NO INTERPRETATION) FINDINGS: Devices/Tubes/Lines: Right IJ port terminating at the superior cavoatrial junction. Lungs: Decreased size of multiple pulmonary nodules including: * 6 mm nodule along the superior segment of the right upper lobe previously measured 9 mm, now with central cavitation (5:177). * 4 mm nodule previously measured 8 mm (5:91). * Right upper lobe 15 x 8 mm peribronchial/endobronchial nodule with bronchial infiltration and impaction previously measured 21 x 10 mm (5:151). * 10 mm left lower lobe nodule previously measured 24 mm (5:27). Left lower lobe consolidative opacity is along the nodule status post cryoablation. Dependent atelectasis in the left lower lobe. Upper lobe predominant centrilobular emphysema. Trace secretions in the trachea (5:91). Pleura: No pleural effusion or pneumothorax. Mediastinum: No thyroid nodules. No pericardial effusion. Similar leftward mediastinal shift. No pericardial effusion. Moderate to severe amount of coronary calcifications. Aortic valve calcifications. Lymph Nodes: No enlarged supraclavicular, axillary, mediastinal, or hilar lymph nodes. Upper Abdomen: Please see concurrent abdominal CT for abdominal findings. Chest Wall: Subcutaneous stranding along the left lateral chest wall (3:30), similar to 04/28/2024. Bones: Cortical irregularities of the right posterior fourth rib appears similar, likely along a healed fracture deformity (3:21). A more lateral fourth rib healed fracture deformity (3:28), is new from 04/28/2024 and 06/26/2024. Degenerative changes of the imaged spine. Diffuse osteopenia. Procedure Note Denae Ferrer MD - 10/12/2024 CT CHEST WITH CONTRAST Referring clinician's provided indication for this examination in Epic: *Colon cancer, restaging TECHNIQUE: Multidetector CT of the chest was performed with intravenouscontrast using tailored dose modulation techniques. COMPARISON: CT CHEST OUTSIDE (NO INTERPRETATION) 2024- FINDINGS: Devices/Tubes/Lines: Right IJ port terminating at the superior cavoatrialjunction. Lungs: Decreased size of multiple pulmonary nodules including: * 6 mm nodule along the superior segment of the right upper lobepreviously measured 9 mm, now with central cavitation (5:177). * 4 mm nodule previously measured 8 mm (5:91). * Right upper lobe 15 x 8 mm peribronchial/endobronchial nodule withbronchial infiltration and impaction previously measured 21 x 10 mm(5:151). * 10 mm left lower lobe nodule previously measured 24 mm (5:27). Left lower lobe consolidative opacity is along the nodule status postcryoablation. Dependent atelectasis in the left lower lobe. Upper lobe predominantcentrilobular emphysema. Trace secretions in the trachea (5:91). Pleura: No pleural effusion or pneumothorax. Mediastinum: No thyroid nodules. No pericardial effusion. Similar leftwardmediastinal shift. No pericardial effusion. Moderate to severe amount ofcoronary calcifications. Aortic valve calcifications. Lymph Nodes: No enlarged supraclavicular, axillary, mediastinal, or hilarlymph nodes. Upper Abdomen: Please see concurrent abdominal CT for abdominalfindings. Chest Wall: Subcutaneous stranding along the left lateral chest wall(3:30), similar to 04/28/2024. Bones: Cortical irregularities of the right posterior fourth rib appearssimilar, likely along a healed fracture deformity (3:21). A more lateralfourth rib healed fracture deformity (3:28), is new from 04/28/2024 and06/26/2024. Degenerative changes of the imaged spine. Diffuse osteopenia. IMPRESSION: 1. Decreased size of pulmonary metastases. 2. Healed right posterolateral fourth rib fracture, new from prior. Jair Gonzalez MD, PhD IMG CT CHEST Final R esult * Magnesium (10/11/2024 2:25 PM EDT) Pathologist [facility] MAGNESIUM 2.1 1.7 - 2.6 mg/dL [facility]# [id number] Blood 10/11/2024 2:25 PM EDT 10/11/2024 2:26 PM EDT Jair Gonzalez MD, PhD LAB BLOOD ORDERABLES Fi nal Result [facility]# [id number] [address] [place] [address] * (ABNORMAL) Comprehensive metabolic panel (10/11/2024 2:25 PM EDT) [facility] SODIUM 139 136 - 145 mmol/L [facility] LIC# [id number] POTASSIUM 4.2 3.4 - 5.1 mmol/L [facility]# [id number] CHLORIDE 103 98 - 107 mmol/L [facility]# [id number] CO2 20(L) 22 - 31 mmol/L [facility]# [id number] BUN 27(H) 6 - 23 mg/dL [facility]# [id number] CREATININE 1.12 0.50 - 1.20 mg/dL [facility]# [id number] GLUCOSE 180(H) 70 - 100 mg/dL [facility]# [id number] ALBUMIN 3.4(L) 3.5 - 5.2 g/dL [facility]# [id number] TOTAL PROTEIN 6.0(L) 6.4 - 8.3 g/dL [facility]# [id number] CALCIUM 9.0 8.8 - 10.7 mg/dL [facility]# [id number] ALKALINE PHOSPHATASE 110 40 - 129 U/L [facility]# [id number] TOTAL BILIRUBIN 0.7 0.2 - 1.2 mg/dL [facility]# [id number] AST 33 <41 U/L [facility]# [id number] ALT 42(H) <42 U/L [facility]# [id number] GLOBULIN 2.6 2.3 - 4.2 g/dL [facility]# [id number] EGFR 69 >59 mL/min/1.7 3m2 [facility]# [id number] Comment:Estimated glomerular filtration rate calculated using the CKD-EPI refit equation. ANION GAP 16 7 - 17 mmol/L [facility]# [id number] Blood 10/11/2024 2:25 PM EDT 10/11/2024 2:26 PM EDT us Jair Gonzalez MD, PhD LAB BLOOD ORDERABLES Fi nal Result [facility]# [id number] [address] [place] [address] * (ABNORMAL) Carcinoembryonic antigen (CEA) (10/11/2024 2:25 PM EDT) CEA 6.4(H) 0 - 3.7 ng/mL [facility]# [id number] Comment: CEA REFERENCE RANGE: NON-SMOKERS: < 3.8 ng/mL SMOKERS: < 5.0 ng/mL Blood 10/11/2024 2:25 PM EDT 10/11/2024 2:26 PM EDT us Jair Gonzalez MD, PhD LAB BLOOD ORDERABLES Fi nal Result [facility]# [id number] [address] [place] [address], [facility] * (ABNORMAL) CBC and differential (10/11/2024 2:25 PM EDT) WBC 3.19(L) 4.00 - 10.00 K/uL [facility] LIC# [id number] RBC 3.19(L) 4.50 - 6.40 M/uL [facility] LIC# [id number] HGB 10.4(L) 13.5 - 18.0 g/dL [facility]# [id number] HCT 31.1(L) 40.0 - 54.0 % [facility] LIC# [id number] PLT 143(L) 150 - 450 K/uL [facility]# [id number] MCV 97.5 80.0 - 100.0 fL [facility] LIC# [id number] MCH 32.6(H) 27.0 - 32.0 pg [facility] LIC# [id number] MCHC 33.4 32.0 - 36.0 g/dL [facility]# [id number] RDW 15.4(H) 11.5 - 14.5 % [facility] LIC# [id number] MPV 9.9 8.4 - 12.0 fL [facility] LIC# [id number] NRBC 0.00 0.00 /100 WBCs [facility] LIC# [id number] ABSOLUTE NRBC 0.00 0 K/uL [facility] LIC# [id number] DIFF METHOD Auto [facility] LIC# [id number] NEUTS 86.3(H) 48.0 - 76.0 % [facility]# [id number] LYMPHS 9.7(L) 18.0 - 41.0 % [facility] LIC# [id number] MONOS 3.4(L) 4.0 - 11.0 % [facility]# [id number] EOS 0.0 0.0 - 5.0 % [facility] LIC# [id number] BASOS 0.0 0.00 - 1.50 % [facility] LIC# [id number] % IMMATURE GRANS 0.6 0.00 - 1.00 % [facility] LIC# [id number] ABSOLUTE NEUTS 2.75 1.92 - 7.60 K/uL [facility] LIC# [id number] ABSOLUTE LYMPHS 0.31(L) 0.72 - 4.10 K/uL [facility] LIC# [id number] ABSOLUTE MONOS 0.11(L) 0.16 - 1.10 K/uL [facility] LIC# [id number] ABSOLUTE EOS 0.00 0.00 - 0.50 K/uL [facility] LIC# [id number] ABSOLUTE BASOS 0.00 0.00 - 0.15 K/uL [facility] LIC# [id number] ABS IMMATURE GRANS 0.02 0.00 - 0.10 K/uL [facility] LIC# [id number] Blood 10/11/2024 2:2 5 PM EDT 10/11/2024 2:26 PM EDT us Jair Gonzalez MD, PhD LAB BLOOD ORDERABLES Fi nal Result [facility]# [id number] [address] documented in this encounter Visit Diagnoses Diagnosis Malignant neoplasm of colon, unspecified part of colon- Primary Malignant neoplasm of colon, unspecified part of colon documented in this encounter Care Teams Tree Scout Relationship Specialty Start Date End Date Alban Abrams MD [address] [place] [address] [place] [address] PCP - General Internal Medicine 02/17/17 Self-Referred, Patient Referring Physician 02/17/17 Jair Gonzalez MD, PhD [address] [place] [address] [email or web address] Primary Oncologist Oncology 02/17/17 Jair Gonzalez MD, PhD [address] [place] [address] [email or web address] Primary Oncologist Oncology 02/17/17 Raymon Norman MD [address] [place] [email or web address] Primary Oncologist Surgical Oncology 03/17/17 Shiloh Beck MD [address] [place] [id number] [email or web address] 12/30/17 documented as of this encounter Additional Source Comments The information contained in this document represents components of the legal health record. It is not the complete legal health record.[facility]
--- OUTSIDE RECORDS SUMMARY | 2024-11-01 14:48 | XMS_ITS | Encounter Summary ---
Author Organization [facility] Address [address] [facility] [address] [place] [address] Phone Care Team Providers Care Junior Administrative Assistant Name Role Phone Alban Abrams MD Primary Care Provider [phone] Self-Referred, Patient Unavailable Unavailab Jair Rodriguez MD, PhD Unavailable [phone] Jair Gonzalez MD, PhD Unavailable [phone] Raymon Norman MD Unavailable Shiloh Beck MD Unavailable [phone] Encounter Details Date Type Department Care Team (Late st Contact Info) Description 10/26/2023 Procedure Pass [facility] Periop [address] [place] [address] Social History Tobacco Use Types Packs/Day Years [...] computer) with a working camera? Yes 10/26/2023 Sex and Gender Information Value Date Recorded Sex Assigned at Not on file Legal Sex Male 5:42 PM EST Gender Identity Not on file Sexual Orientation Not on file documented as of this encounter Functional Status * Calculated C-SSRS Risk Score (Lifetime/Recent) Answer Date of Assessment Author No Risk Indicated 10/26/2023 6:20 PM EDT Dawna Pozo RN * [place]lin Suicide Severity Rating Scale (Screener/Recent Self-Report) Question Answer Date of Assessment Author 1. Wish to be (Past 1 Month) No 10/26/2023 6:20 PM EDT Debbie Kim RN 2. Non-Specific Active Suicidal Thoughts (Past 1 Month) No 10/26/2023 6:20 PM EDT Debbie Kim RN 6. Suicidal Behavior (Lifetime) No 10/26/2023 6:20 PM EDT Debbie Kim RN documented as of this encounter Plan of Treatment Upcoming Encounters Date Type Department Care Team (Late st Contact Info) Description 10/12/2024 Procedure Pass [facility] Imaging [facility], [facility], [place] [address] [facility], [address] [place] [address] 10/12/2024 Procedure Pass [facility] Imaging Department, [facility], [place] [address] [facility], [address] [place] [address] 01/11/2025 6:45 AM EST Blood Draw [facility] Imaging Department, [facility], Imaging Ltqrj-[id number] [address] [facility], [address] [place] [address] Jair Gonzalez MD, PhD [address] [place] [phone] [email or web address] 01/11/2025 8:40 AM EST Appointment [facility] Imaging Department, [facility], [place] [address] [facility], [address] [place] [address] Jair Gonzalez MD, PhD [address] [place] [id number] [email or web address] 01/11/2025 10:30 AM EST Office [facility], [address] 10[address] [place] [address] Jair Gonzalez MD, PhD [address] [place] [id number] [email or web address] documented as of this encounter Visit Diagnoses Not on filedocumented in this encounter Care Teams Junior Administrative Assistant Relationship Specialty Start Date End Date Alban Abrams MD [address] [place] [address] [place] [address] PCP - General Internal Medicine 12/20/17 Self-Referred, Patient Referring Physician 02/17/17 Jair Gonzalez MD, PhD [address] [place] [address] [email or web address] Primary Oncologist Oncology 02/17/17 Jair Gonzalez MD, PhD [address] [place] [address] [email or web address] Primary Oncologist Oncology 02/17/17 Raymon Norman MD [address] [place] [phone] [email or web address] Primary Oncologist Surgical Oncology 03/17/17 Shiloh Beck MD [address] [place] [phone] [email or web address] 12/30/17 documented as of this encounter Additional Source Comments The information contained in this document represents components of the legal health record. It is not the complete legal health record.[facility]
--- OUTSIDE RECORDS SUMMARY | 2024-11-01 14:48 | XMS_ITS | Encounter Summary ---
Author Organization [facility] Address [address] [address] [place] [address] Phone Care Team Providers Care Fish Egg Packer Name Role Phone Alban Abrams MD Primary Care Provider [phone] Self-Referred, Patient Unavailable Unavailab Jair Rodriguez MD, PhD Unavailable [phone] Jair Gonzalez MD, PhD Unavailable [phone] Raymon Norman MD Unavailable Shiloh Beck MD Unavailable [phone] Encounter Details Date Type Department Care Team (Late st Contact Info) Description 10/09/2024 Procedure Pass [facility] [place] [facility] [place] [place] [address] [facility] [address] [place] [address] Social History Tobacco Use Types Packs/Day Years [...] 10/12/2024 Procedure Pass [facility] Imaging Department, [facility] [place], [place] [address], [address] [place] [address] 10/12/2024 Procedure Pass [facility] Imaging Department, [facility], [place] [address], [address] [place] [address] 01/11/2025 6:45 AM EST Blood Draw [facility] Imaging Department, [facility], Imaging V[facility] [address], [address] [place] [address] Jair Gonzalez MD, PhD [address] [place] [phone] [email or web address] 01/11/2025 8:40 AM EST Appointment [facility] Imaging Department, [facility], [place] [address], [address] [place] [address] Jair Gonzalez MD, PhD [address] [place] [phone] [email or web address] 01/11/2025 10:30 AM EST Office [facility], [address], 10[address] [place] [address] Jair Gonzalez MD, PhD [address] [place] [phone] [email or web address] documented as of this encounter Visit Diagnoses Not on filedocumented in this encounter Care Teams Fish Egg Packer Relationship Specialty Start Date End Date Alban Abrams MD [address] [place] [address] [place] [address] PCP - General Internal Medicine 02/17/17 Self-Referred, Patient Referring Physician 02/17/17 Jair Gonzalez MD, PhD [address] [place] [address], [place] [phone] [email or web address] Primary Oncologist Oncology 02/17/17 Jair Gonzalez MD, PhD [address] [place] [address] [email or web address] Primary Oncologist Oncology 02/17/17 Raymon Norman MD [address] [place] [phone] [email or web address] Primary Oncologist Surgical Oncology 03/17/17 Shiloh Beck MD [address] [place] [phone] [email or web address] Hematology and Oncology 12/30/17 documented as of this encounter Additional Source Comments The information contained in this document represents components of the legal health record. It is not the complete legal health record.[facility]
--- OUTSIDE RECORDS SUMMARY | 2024-11-01 14:48 | XMS_ITS | Clinical Summary ---
Author Organization [facility] Address [address] [place] [address] Phone Care Team Providers Care Data Analytics Architect Name Role Phone Bertha Barry MD Primary Care Provider [phone] Self-Referred, Patient Unavailable Unavailab Jair Rodriguez MD, PhD Unavailable [phone] Jair Gonzalez MD, PhD Unavailable Raymon Norman MD Unavailable [phone] Shiloh Beck MD Unavailable [phone] Allergies Active Allergy Reactions Criticality Noted Date Comments Aspirin Anaphylaxis,Hives High 03/04/2017 Pollen Extracts 03/13/2021 Trees, shrubs Medications captopril (CAPOTEN) 50 MG tablet Take 50 mg by mouth 2 (two) times a day. Active dextromethorphan-g uaiFENesin (MUCINEX DM) 30-600 mg per 12 hr tablet Take 1 tablet by mouth every 12 (twelve) hours. Active atenolol (TENORMIN) 100 MG tablet Take 1 tablet (100 mg total) by mouth daily. 30 tablet 3 07/27/19 Active Additional Information Patient not taking.Reported on 01/24/2024 zolpidem (AMBIEN CR) 12.5 MG CR tablet Take 1 tablet (12.5 mg total) by mouth nightly at bedtime as needed. 30 tablet 1 07/27/19 Active Additional Information Patient taking differently:12.5 mg Oral Nightly PRN,for sleep, Reported on 01/25/2024 diphenoxylate-atro pine (LOMOTIL) 2.5-0.025 mg per tablet Take 2 tablets by mouth 4 (four) times a day as needed for diarrhea. 30 tablet 2 07/27/19 Active cyclobenzaprine (FLEXERIL) 10 MG tablet Take 10 mg by mouth 3 (three) times a day as needed. 09/13/19 Active loratadine (CLARITIN) 10 mg tablet Take 10 mg by mouth daily as needed for allergies. Active ux-dld-qyame-K1-ly copen-lutein (CENTRUM SILVER ULTRA MEN'S) [phone] mcg Tab Take by mouth. 02/03/20 Active cholecalciferol (VITAMIN D3) 25 MCG (1,000 unit) tablet Take 1,000 Units by mouth daily. Active ascorbic acid, vitamin C, (VITAMIN C) 500 MG tablet Take 500 mg by mouth 2 (two) times a day. Active gabapentin (NEURONTIN) 300 MG capsule Take 300 mg by mouth daily. Active sertraline (ZOLOFT) 50 MG tablet Take 50 mg by mouth daily. Active venlafaxine (EFFEXOR) 25 MG tablet Take 25 mg by mouth daily. Active nystatin (NYSTOP) powder Apply topically as needed. 09/22/19 Active ondansetron (ZOFRAN-ODT) 8 MG disintegrating tablet Take 8 mg by mouth every 8 (eight) hours as needed. 10/17/19 Active oxyCODONE-acetamin ophen (PERCOCET) 10-325 mg per tablet Take 1 tablet by mouth every 12 (twelve) hours as needed for pain (specific location in comments). 12/17/19 24 Active HYDROmorphone (DILAUDID) 2 MG tablet Take 1-2 tablets (2-4 mg total) by mouth every 4 (four) hours as needed for pain (specific location in comments). 36 tablet 01/26/20 Active dexAMETHasone (DECADRON) 4 MG tablet 08/31/19 Active ELIQUIS 2.5 mg Take 2.5 mg by mouth 2 (two) times a day. Active HYDROmorphone (DILAUDID) 4 MG tablet 10/03/19 25 Active Active Problems Problem Noted Date Diagnosed Date Metastatic colon cancer to liver 01/25/2024 Lesion of lung 11/16/2023 Lung tumor 11/16/2023 Cancer, metastatic to lung 10/26/2023 Liver tumor 08/31/2023 Observation after surgery 02/10/2023 Colon cancer 12/15/2022 Secondary malignant neoplasm of liver 02/06/2021 S/P left colectomy 04/18/2017 Rectal cancer 03/04/2017 Cancer Staging:Clinical stage from 08/17/2017:Stage JOSEPH(T3, N0, M1a) - Unsigned Pathologic stage from 08/17/2017:Stage JOSEPH(T4a, N1c, M1a) - Unsigned Encounters Date Type Department Care Team Description 10/12/2024 10:00 AM EDT [facility] Visit [facility], [address], [address] [place] [address] Jair Gonzalez MD, PhD Malignant neoplasm metastatic to lung, unspecified laterality (Primary Dx) 10/11/2024 4:30 PM EDT Infusion Infusion Therapy Services [facility] at [address] [address] Raymon Norman MD Wagner, Andrea Tomasetti, RN 10/11/2024 2:29 PM EDT - 10/11/2024 11:59 PM EDT Hospital Encounter [place], [place] [address] [address] Jair Gonzalez MD, PhD Discharge Disposition: Home or Self Care 10/10/2024 Telephone [facility], [facility] at [address] [address] Amber Jamison, LUIS MIGUEL Care Coordination 10/09/2024 Procedure Pass [address] 3rd [place] [address] 10/09/2024 Procedure Pass [facility] - [place], [place] [address] [facility] 3rd [place] [address] 10/09/2024 Orders Only [facility], [facility] [place] [address] [facility], 10th [place] [address] Jair Gonzalez MD, PhD Malignant neoplasm of colon, unspecified part of colon (Primary Dx) from Last 3 Months Immunizations Immunization Administration Dates Next Due Influenza High-Dose Quadrivalent Preservative Fr ee IM 02/11/2023 Family History Medical History Relation Comments Cancer Father prostate? Cancer Maternal Grandfather Relation Status Comments Father Maternal Grandfather Social History Tobacco Use Types Packs/Day Years Used Date Smoking Tobacco: Former Cigarettes 3 10 1 1989 Smokeless Tobacco: Never Tobacco Cessation:Counseling Given: Not Answered Comments:25 years ago Alcohol Use Standard Drinks/Week [...] on file Sexual Orientation Not on file Last Filed Vital Signs Vital Sign Reading Time Taken Comments Blood Pressure 110/57 10/12/2024 10:30 AM EDT Pulse 107 10/12/2024 10:30 AM EDT Temperature 36.9 C (98.4 F) 10/12/2024 10:30 AM EDT Respiratory Rate 16 10/12/2024 10:2 7 AM EDT Oxygen Saturation 95% 10/12/2024 10: 30 AM EDT Inhaled Oxygen Concentration - - Weight 139.8 kg (308 lb 3.3 oz) 10/12/2024 10:27 AM EDT with shoes on Height 188 cm (6' 2 ) 11/16/2023 7:13 AM EDT Body Mass Index 39.57 11/16/2023 7:13 AM EDT Plan of Treatment Upcoming Encounters Date Type Department Care Team (Late st Contact Info) Description 10/12/2024 Procedure Pass [facility] Imaging Department, [facility], [place] [address] [facility], Floor [address] [place] [address] 10/12/2024 Procedure Pass [facility] Imaging Department, [facility], [place] [address] [facility], [address] [place] [address] 01/11/2025 6:45 AM EST Blood Draw [facility] Imaging Department, [facility], Imaging [employer] [address] [facility], [address] [place] [address] Jair Gonzalez MD, PhD [address] [place] [address] [email or web address] 01/11/2025 8:40 AM EST Appointment [facility] Imaging Department, [facility], [place] [address] [facility], [address] [place] [address] Jair Gonzalze MD, PhD [address] [place] [address] [email or web address] 01/11/2025 10:30 AM EST Office Visit [facility], [facility] [address] [facility], 10th [place] [address] Jair Gonzalez MD, PhD [address] [place] [id number] [email or web address] Health Maintenance Due Date Last Done Comments LIPID PANEL 1950 DEPRESSION SCREENING 1960 HEPATITIS C SCREENING 1966 HEPATITIS A VACCINES (1 of 2 - Risk 2-dose series) 12/27/1967 ZOSTER VACCINES (1 of 2) 12/27/1967 COLOGUARD 1993 FIT TEST 1993 FOBT 1993 VIRTUAL COLONOSCOPY 1993 PNEUMOCOCCAL VACCINES (50+ years) (2 of 2 - PCV) 12/12/2016 12/13/2015 SIGMOIDOSCOPY 06/08/2023 06/07/2018, 04/13/2017 COVID-19 VACCINE ( season) 2023 02/14/2021, 06/04/2020, 05/14/2020 RSV VACCINE (1 - 1-dose 75+ series) 12/27/2023 INFLUENZA VACCINE (#1) 2024 , 02/11/2023, 01/01/2020, Additional history exists CREATININE LEVEL 10/11/2025 10/11/2024, , 01/26/2024, Additional history exists POTASSIUM LEVEL 10/11/2025 10/11/2024, 04/02, 01/26/2024, Additional history exists Adult Td,Tdap Booster 04/10/2027 04/10/2017, 016 COLONOSCOPY 01/10/2029 01/10/2019 COLORECTAL CANCER SCREENING 01/10/2029 SMOKING STATUS SCREENING (Once After 26 Yrs) Completed 08/24/2023 HIB VACCINES Aged Out No longer eligi ble based on patient's age to complete this topic MENINGOCOCCAL VACCINES (ACWY) Aged Out No longer eligible based on patient's age to complete this topic MENINGOCOCCAL VACCINES (B) Aged Out N o longer eligible based on patient's age to complete this topic Medical Devices Implanted Type Area Analysis Engineer Device Identifier Shelf Expiration Date Model / Serial / Lot Port Implantable 9.5fr Infusion Dual Lumen Catheter [employer]ureth[employer] - [id number] Implanted:Qty: 1 on 06/09/2017 by Ernie Viramontes MD at [facility] STANDARD Right: Chest Wall [employer] [id number] 01/28/2019 [id number] / / [id number] Description:RT IJ Marker Description:liver marker Procedures Procedure Name Priority Date/Time Associated Diagnosis Comments CT ABDOMEN/PELVIS WITH CONTRAST Routine 10/11/2024 4:05 PM EDT Malignant neoplasm of colon, unspecified part of colon CT CHEST WITH CONTRAST Routine 4:05 PM EDT Malignant neoplasm of colon, unspecified part of colon MAGNESIUM Routine 10/11/2024 2:25 PM EDT Malignant neoplasm of colon, unspecified part of colon COMPREHENSIVE METABOLIC PANEL Routine 10/11/2024 2:25 PM EDT Malignant neoplasm of colon, unspecified part of colon CARCINOEMBRYONIC ANTIGEN (CEA) Routine 10/11/2024 2:25 PM EDT Malignant neoplasm of colon, unspecified part of colon HC BLOOD COUNT COMPLETE AUTO&AUTO DIFRNTL WBC Routine 10/11/2024 2:25 PM EDT Malignant neoplasm of colon, unspecified part of colon ENDOSCOPY, COLON 01/10/2019 12:5 7 PM EST ENDOSCOPY, SIGMOID 06/07/2018 3: 39 PM EDT from Last 3 Months or Most Recently Relevant to Health Maintenance Results * CT CHEST WITH CONTRAST (10/11/2024 4:05 [...] clinician's provided indication for this examination in [facility]: *Colon cancer, restaging TECHNIQUE: Multidetector CT of [...] posterolateral fourth rib fracture, new from prior. us Jair Gonzalez MD, PhD IMG CT CHEST Final R esult * CT ABDOMEN/PELVIS WITH CONTRAST (10/11/2024 4:05 [...] edited the report originally created by Dread Chawla. Narrative 10/12/2024 11:[address] ABDOMEN/PELVIS [...] this examination in Epic: *Colon cancer, restaging Review of the Electronic [...] PhD IMG CT ABD/PELVIS Final Result * (ABNORMAL) Comprehensive metabolic panel (10/11/2024 2:25 PM EDT) SODIUM 139 136 - 145 mmol/L [facility]# [id number] POTASSIUM 4.2 3.4 - 5.1 mmol/L [facility]# [id number] CHLORIDE 103 98 - 107 mmol/L [facility]# [id number] CO2 20(L) 22 - 31 mmol/L [facility]# [id number] BUN 27(H) 6 - 23 mg/dL [facility]# [id number] CREATININE 1.12 0.50 - 1.20 mg/dL [facility]# [id number] GLUCOSE 180(H) 70 - 100 mg/dL [facility]# [id number] ALBUMIN 3.4(L) 3.5 - 5.2 g/dL [facility]# [id number] TOTAL PROTEIN 6.0(L) 6.4 - 8.3 g/dL [facility]# [id number] CALCIUM 9.0 8.8 - 10.7 mg/dL [facility]# [id number] ALKALINE PHOSPHATASE 110 40 - 129 U/L [facility]# [id number] TOTAL BILIRUBIN 0.7 0.2 - 1.2 mg/dL [facility]# [id number] AST 33 <41 U/L [facility]# [id number] ALT 42(H) <42 U/L [facility]# [id number] GLOBULIN 2.6 2.3 - 4.2 g/dL [facility]# [id number] EGFR 69 >59 mL/min/1.7 3m2 [facility]# [id number] Comment:Estimated glomerular filtration rate calculated using the CKD-EPI refit equation. ANION GAP 16 7 - 17 mmol/L [facility]# [id number] Blood 10/11/2024 2:25 PM EDT 10/11/2024 2:26 PM EDT us Jair Gonzalez MD, PhD LAB BLOOD ORDERABLES Fi nal Result [facility]# [id number] [address] [place] [address], [facility] * (ABNORMAL) CBC and differential (10/11/2024 2:25 PM EDT) [facility] WBC 3.19(L) 4.00 - 10.00 K/uL [facility]# [id number] RBC 3.19(L) 4.50 - 6.40 M/uL [facility]# [id number] HGB 10.4(L) 13.5 - 18.0 g/dL [facility]# [id number] HCT 31.1(L) 40.0 - 54.0 % [facility]# [id number] PLT 143(L) 150 - 450 K/uL [facility]# [id number] MCV 97.5 80.0 - 100.0 fL [facility]# [id number] MCH 32.6(H) 27.0 - 32.0 pg [facility]# [id number] MCHC 33.4 32.0 - 36.0 g/dL [facility]# [id number] RDW 15.4(H) 11.5 - 14.5 % [facility]# [id number] MPV 9.9 8.4 - 12.0 fL [facility]# [id number] NRBC 0.00 0.00 /100 WBCs [facility]# [id number] ABSOLUTE NRBC 0.00 0 K/uL [facility] LIC# [id number] DIFF METHOD Auto [facility] LIC# [id number] NEUTS 86.3(H) 48.0 - 76.0 % [facility]# [id number] LYMPHS 9.7(L) 18.0 - 41.0 % [facility]# [id number] MONOS 3.4(L) 4.0 - 11.0 % [facility]# [id number] EOS 0.0 0.0 - 5.0 % [facility]# [id number] BASOS 0.0 0.00 - 1.50 % [facility]# [id number] % IMMATURE GRANS 0.6 0.00 - 1.00 % [facility]# [id number] ABSOLUTE NEUTS 2.75 1.92 - 7.60 K/uL [facility]# [id number] ABSOLUTE LYMPHS 0.31(L) 0.72 - 4.10 K/uL [facility]# [id number] ABSOLUTE MONOS 0.11(L) 0.16 - 1.10 K/uL [facility]# [id number] ABSOLUTE EOS 0.00 0.00 - 0.50 K/uL [facility]# [id number] ABSOLUTE BASOS 0.00 0.00 - 0.15 K/uL [facility]# [id number] ABS IMMATURE GRANS 0.02 0.00 - 0.10 K/uL [facility]# [id number] Blood 10/11/2024 2:25 PM EDT 10/11/2024 2:26 PM EDT us Jair Gonzalez MD, PhD LAB BLOOD ORDERABLES Fi nal Result [facility]# [id number] [address] [place] [address], [facility] * Magnesium (10/11/2024 2:25 PM EDT) MAGNESIUM 2.1 1.7 - 2.6 mg/dL [facility]# [id number] Blood 10/11/2024 2:25 PM EDT 10/11/2024 2:26 PM EDT Jair Gonzalez MD, PhD LAB BLOOD ORDERABLES Fi nal Result Performing Organization Address [facility] de Phone Number [facility]# [id number] [address] [place] [address] * (ABNORMAL) Carcinoembryonic antigen (CEA) (10/11/2024 2:25 PM EDT) CEA 6.4(H) 0 - 3.7 ng/mL [facility]# [id number] Comment: CEA REFERENCE RANGE: NON-SMOKERS: < 3.8 ng/mL SMOKERS: < 5.0 ng/mL Blood 10/11/2024 2:25 PM EDT 10/11/2024 2:26 PM EDT Jair Gonzalez MD, PhD LAB BLOOD ORDERABLES Fi nal Result Performing Organization Address [facility] Co de Phone Number [facility]IC# [id number] [address] [place] [address] * ENDOSCOPY, COLON (01/10/2019 12:57 PM EST) 01/10/2019 12:5 7 PM EST Narrative Transcriptions Riki Lopez MD - 01/10/2019 12:57 PM EST [facility] Gastroenterology Patient Name: Jeffery Hernandez Procedure Date: 01/10/2019 12:57 PM Date of : 1950 Admit Type: Outpatient Age: 68 Room: 8 Gender: Male Note Status: Finalized Attending MD: Riki Lopez MD Procedure: Colonoscopy Indications: High risk colon cancer surveillance: Personal history of colon cancer. hx of a low anterior resection. Providers: Riki Lopez MD, RAVIN Peter RN Referring MD: BERTHA BARRY MD (Referring MD) Medicines: Midazolam 4 mg IV, Fentanyl 100 micrograms IV Complications: No immediate complications. Procedure: Pre-Anesthesia Assessment: - All questions were answered and informed consent was obtained. - ASA Grade Assessment: II - A patient with mild systemic disease. - Airway Examination: Mallampati Class II (the uvula but not tonsillar pillars visualized). After informed consent was obtained, the scope was passed under direct vision. Throughout the procedure, the patient's blood pressure, pulse, and oxygen saturations were monitored continuously. The Colonoscope was introduced through the anus and advanced to the cecum, identified by appendiceal orifice and ileocecal valve. The colonoscopy was performed without difficulty. The patient tolerated the procedure well. The quality of the bowel preparation was adequate to identify polyps. Findings: The perianal and digital rectal examinations were normal. There was evidence of a prior end-to-side colo-rectal anastomosis in the recto-sigmoid colon. This was patent and was characterized by healthy appearing mucosa. The anastomosis was traversed. A few small and large-mouthed diverticula were found in the descending colon. The exam was otherwise without abnormality. Impression: - Patent end-to-side colo-rectal anastomosis, characterized by healthy appearing mucosa. - Diverticulosis in the descending colon. - The examination was otherwise normal. - No specimens collected. Moderate Sedation: Moderate (conscious) sedation was administered by the endoscopy nurse and supervised by the endoscopist. The following parameters were monitored: oxygen saturation, heart rate, blood pressure, and response to care. Total physician intraservice time was 19 minutes. Recommendation: - Discharge patient to home (ambulatory). - Repeat colonoscopy in 3 years for surveillance. MD Riki Rdz MD 01/10/2019 1:33:51 PM This report has been signed electronically. Number of Addenda: 0 Note Initiated On: 01/10/2019 12:57 PM Bertha Barry MD GI PROCEDURE ORDERABLES Final Result * ENDOSCOPY, SIGMOID (06/07/2018 3:39 PM EDT) 06/07/2018 3:39 PM EDT Narrative Transcriptions Riki Lopez MD - 06/07/2018 3:39 PM EDT [facility] Gastroenterology Patient Name: Jeffery Hernandez Procedure Date: 06/07/2018 3:39 PM Date of : 1950 Admit Type: Outpatient Age: 67 Room: 8 Gender: Male Note Status: Finalized Attending MD: Riki Lopez MD Procedure: Flexible Sigmoidoscopy Indications: High risk colon cancer surveillance: Personal history of colon cancer. Hx of sigmoid resection last year. Complaint of irregular stools. Providers: Riki Lopez MD, HARLEY MART RN Referring MD: Riki Lopez MD (Referring MD) Medicines: None Complications: No immediate complications. Procedure: Pre-Anesthesia Assessment: - All questions were answered and informed consent was obtained. - ASA Grade Assessment: II - A patient with mild systemic disease. - Airway Examination: Mallampati Class II (the uvula but not tonsillar pillars visualized). After informed consent was obtained, the endoscope was passed under direct vision. Throughout the procedure, the patient's blood pressure, pulse, and oxygen saturations were monitored continuously. The [id number] was introduced through the anus and advanced to the descending colon. Findings: The perianal and digital rectal examinations were normal. There was evidence of a prior end-to-side colo-rectal anastomosis in the recto-sigmoid colon. This was patent and was characterized by healthy appearing mucosa. A few small-mouthed diverticula were found in the descending colon. The exam was otherwise without abnormality. Impression: - Patent end-to-side colo-rectal anastomosis, characterized by healthy appearing mucosa. - Diverticulosis in the descending colon. - The examination was otherwise normal. - No specimens collected. Recommendation: - Discharge patient to home (ambulatory). Add fiber to the diet to help normalize stool pattern. - Perform a colonoscopy in 6 months for surveillance and to rule out any new lesions. MD Riki Rdz MD 06/07/2018 3:57:40 PM This report has been signed electronically. Number of Addenda: 0 Note Initiated On: 06/07/2018 3:39 PM us Riki Lopez MD GI PROCEDURE ORDERABLES Final R esult from Last 3 Months or Most Recently Relevant to Health Maintenance Insurance MEDICARE PART A & B [facility] PPO MEDICARE PART A & B [facility] OUT OF STATE PPO MEDICARE PART A & B 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 01/25/2024 * Full Code (Latest Code Status on File) Date Activated Date Inactivated Comments 01/25/2024 4:20 PM Question Answer Comments Code Status Confirmed With: Patient * Full Code Date Activated Date Inactivated Comments 11/16/2023 7:24 PM 01/25/2024 4:20 PM Question Answer Comments Code Status Confirmed With: Patient * Full Code Date Activated Date Inactivated Comments 11/16/2023 12:14 PM 11/16/2023 7:24 PM Question Answer Comments Code Status Confirmed With: Patient * Full Code Date Activated Date Inactivated Comments 08/31/2023 4:58 PM 11/16/2023 12:14 PM Question Answer Comments Code Status Confirmed With: Other (specify below ) * Full Code Date Activated Date Inactivated Comments 12/16/2022 8:12 AM 08/31/2023 4:58 PM Question Answer Comments Code Status Confirmed With: Patient Care Teams Data Analytics Architect Relationship Specialty Start Date End Date Bertha Barry MD [address] [place] [address] [place] [address] PCP - General Internal Medicine 02/17/17 Self-Referred, Patient Referring Physician 02/17/17 Jair Gonzalez MD, PhD [address] [place] [phone] [email or web address] Primary Oncologist Oncology 02/17/17 Jair Gonzalez MD, PhD [address] [place] [phone] [email or web address] Primary Oncologist Oncology 02/17/17 Raymon Norman MD [address] [place] [phone] [email or web address] Primary Oncologist Surgical Oncology 03/17/17 Shiloh Beck MD [address] [place] [address] [email or web address] 12/30/17 Additional Source Comments The information contained in this document represents components of the legal health record. It is not the complete legal health record.[facility]
--- OUTSIDE RECORDS SUMMARY | 2024-11-01 14:48 | XMS_ITS | Encounter Summary ---
Author Organization [facility] Address [address] [place] [address] Phone Care Team Providers Care Metal Miner Blasting Name Role Phone Alban Abrams MD Primary Care Provider [phone] Self-Referred, Patient Unavailable Unavailab Jair Rodriguez MD, PhD Unavailable [phone] Jair Gonzalez MD, PhD Unavailable [phone] Raymon Norman MD Unavailable Shiloh Beck MD Unavailable [phone] Encounter Details Date Type Department Care Team (Late st Contact Info) Description 12/30/2023 Procedure Pass [facility], [facility] [place] 450 [facility], [place] [address]1 [place] [address] Social History Tobacco Use Types Packs/Day Years [...] st Contact Info) Description 10/12/2024 Procedure Pass [facility] Imaging Department, [facility] [place] [place] 450 [facility], [place] [address] [place] [address] 10/12/2024 Procedure Pass [facility] Imaging Department, [facility] [place] 450 [facility], [place] [address] [place] [address] 01/11/2025 6:45 AM EST Blood Draw [facility] Imaging Department, [facility] [place], Imaging Rcgio-te-Mywc 450 [facility], [place] [address] [place] [address] Jair Gonzalez MD, PhD [address] [place] [address] [email or web address]@d [email or web address] 01/11/2025 8:40 AM EST Appointment [facility], [facility] [place] 450 [facility], [place] [address] [place] [address] Jair Gonzalez MD, PhD [address] [place] [address] Samm@d [email or web address] 01/11/2025 10:30 AM EST Office Visit [facility], [facility] [place] 450 [facility], 10th [place] [address] Jair Gonzalez MD, PhD [address] [place] [address] [email or web address]@d [email or web address] documented as of this encounter Visit Diagnoses Not on filedocumented in this encounter Care Teams Metal Miner Blasting Relationship Specialty Start Date End Date Alban Abrams MD [address] [place] [address] [place] [address] PCP - General Internal Medicine 02/17/17 Self-Referred, Patient Referring Physician 02/17/17 Jair Gonzalez MD, PhD [address] [place] [phone] [email or web address] Primary Oncologist Oncology 02/17/17 Jair Gonzalez MD, PhD [address] [place] [address] [email or web address] Primary Oncologist Oncology 02/17/17 Raymon Norman MD [address] [place] [address] [email or web address] Primary Oncologist Surgical Oncology 03/17/17 Shiloh Beck MD [address] [place] [address] [email or web address] Hematology [facility] Oncology 12/30/17 documented as of this encounter Additional Source Comments The information contained in this document represents components of the legal health record. It is not the complete legal health record.[facility]
--- OUTSIDE RECORDS SUMMARY | 2024-11-01 14:48 | XMS_ITS | Encounter Summary ---
Author Organization [facility] Address [address] [facility] [address] [place] [address] Phone Care Team Providers Care Fire Protection Inspector Name Role Phone Alban Abrams MD Primary Care Provider [phone] Self-Referred, Patient Unavailable Unavailab Jair Rodriguez MD, PhD Unavailable [phone] Jair Gonzalez MD, PhD Unavailable [phone] Raymon Norman MD Unavailable [phone] Shiloh Beck MD Unavailable [phone] Encounter Details Date Type Department Care Team (Late st Contact Info) Description 10/15/2017 Procedure Pass [facility] Imaging Department, [facility] [place] 450 [facility], Floor L1 [place] [address] Social History Tobacco Use Types Packs/Day Years Used Date Smoking Tobacco: Former Cigarettes 3 10 1 - 1989 Smokeless Tobacco: Never Comments:25 years ago Alcohol Use Standard Drinks/Week Comments No 0 (1 standard drink = 0.6 oz pur e alcohol) Sex and Gender Information Value Date Recorded Sex Assigned at Not on file Legal Sex Male 5:42 PM EST Gender Identity Not on file Sexual Orientation Not on file documented as of this encounter Plan of Treatment Upcoming Encounters Date Type Department Care Team (Late st Contact Info) Description 10/12/[address] [facility] Imaging Department, [facility] [place] 450 [facility], Floor [address]1 [place] [address] 10/12/[address] [facility] Imaging Department, [facility] [place] 450 [facility], Floor [address]1 [place] [address] 01/11/2025 6:45 [address] [facility] Imaging Department, [facility], Imaging Amzge-nm-Ilnn 450 [facility], Floor [address]1 [place] [address] Jair Gonzalez MD, PhD [address] [place] [address] [email or web address] [facility] 01/11/2025 8:[address] [facility] Imaging Department, [facility] [place] 450 [facility], Floor [address]1 [place] [address] Jair Gonzalez MD, PhD [address] [place] [address] [email or web address] [email or web address] 01/11/2025 10:30 AM EST Office Visit [facility], [address], 10th [place] [address] Jair Gonzalez MD, PhD [address] [place] [phone] Samm@d [email or web address] documented as of this encounter Visit Diagnoses Not on filedocumented in this encounter Care Teams Fire Protection Inspector Relationship Specialty Start Date End Date Alban Abrams MD [address] [place] [address] [place] [address] PCP - General Internal Medicine 02/17/17 Self-Referred, Patient Referring Physician 02/17/17 Jair Gonzalez MD, PhD 450 [place] [address] [email or web address] Primary Oncologist Oncology 02/17/17 Jair Gonzalez MD, PhD 450 [place] [address] [email or web address] Primary Oncologist Oncology 02/17/17 Raymon Norman MD [address] [place] [address] [email or web address] Primary Oncologist Surgical Oncology 03/17/17 Shiloh Beck MD [address] [place] [phone] [email or web address] Hematology and Oncology 12/30/17 documented as of this encounter Additional Source Comments The information contained in this document represents components of the legal health record. It is not the complete legal health record.[facility]
--- OUTSIDE RECORDS SUMMARY | 2024-11-01 14:48 | XMS_ITS | Encounter Summary ---
Author Organization [facility] Address [address] [facility] [address] [place] [address] Phone Care Team Providers Care Automobile Appraiser Name Role Phone Alban Abrams MD Primary Care Provider [phone] Self-Referred, Patient Unavailable Unavailab Jair Rodriguez MD, PhD Unavailable [phone] Jair Gonzalez MD, PhD Unavailable [phone] Raymon Norman MD Unavailable Shiloh eBck MD Unavailable [phone] Encounter Details Date Type Department Care Team (Late st Contact Info) Description 10/09/2024 Procedure Pass [facility] [place] 300 [facility] [address] [place] [address] Social History Tobacco Use Types Packs/Day Years [...] Pass [facility] Imaging Department, [facility] [place] 450 [facility], Floor L1 [place] [address] 10/12/2024 Procedure Pass [facility] Imaging Department, [facility], [place] 450 [facility], Floor [address]1 [place] [address] 01/11/2025 6:45 AM EST Blood Draw [facility] Imaging Department, [facility], Imaging Pxkyo-gl-Vvdr 450 [facility], Floor [address]1 [place] [address] Jair Gonzalez MD, PhD [address] [place] [address] Samm@d [email or web address] 01/11/2025 8:40 AM EST Appointment [facility] Imaging Department, [facility], [place] 450 [facility], Floor [address]1 [place] [address] Jair Gonzalez MD, PhD [address] [place] [address] Samm@d [email or web address] 01/11/2025 10:30 AM EST Office Visit [facility], [address], 10th [place] [address] Jair Gonzalez MD, PhD [address] [place] [address] Samm@d [email or web address] documented as of this encounter Visit Diagnoses Not on filedocumented in this encounter Care Teams Automobile Appraiser Relationship Specialty Start Date End Date Alban Abrams MD [address] [place] [address] [place] [address] PCP - General Internal Medicine 02/17/17 Self-Referred, Patient Referring Physician 02/17/17 Jair Gonzalez MD, PhD [address] [place] [address], [place] [address] [email or web address] Primary Oncologist Oncology 02/17/17 Jair Gonzalez MD, PhD 450 [place] [address] [email or web address] Primary Oncologist Oncology 02/17/17 Raymon Norman MD [address] [place] [address] [email or web address] u Primary Oncologist Surgical Oncology 03/17/17 Shiloh Beck MD [address] [place] [address] [email or web address] [employer] Hematology and Oncology 12/30/17 documented as of this encounter Additional Source Comments The information contained in this document represents components of the legal health record. It is not the complete legal health record.[facility]
--- OUTSIDE RECORDS SUMMARY | 2024-11-01 14:48 | XMS_ITS | Encounter Summary ---
Author Organization [facility] Address [address] [place] [address] Phone Care Team Providers Care Specialist Wound Care Name Role Phone Alban Abrams MD Primary Care Provider [phone] Self-Referred, Patient Unavailable Unavailab Jair Rodriguez MD, PhD Unavailable [phone] Jair Gonzalez MD, PhD Unavailable [phone] Rayomn Norman MD Unavailable Shiloh Beck MD Unavailable Encounter Details Date Type Department Care Team (Late st Contact Info) Description 07/15/2023 Procedure Pass [facility] Imaging Department, [facility] [place], [place] 450 [facility], Floor L1 [place] [address] Social History Tobacco Use Types Packs/Day Years [...] st Contact Info) Description 10/12/2024 Procedure Pass [facility] Imaging Department, [facility] 450 [facility], Floor L1 [place] [address] 10/12/2024 Procedure Pass [facility] Imaging Department, [facility] [place] 450 [facility], Floor [address]1 [place] [address] 01/11/2025 6:45 AM EST Blood Draw [facility] Imaging Department, [facility], Imaging Acupw-rp-Xqrb 450 [facility], Floor [address]1 [place] [address] Jair Gonzalez MD, PhD [address] [place] [phone] Samm@[email or web address] 01/11/2025 8:40 AM EST Appointment [facility] Imaging Department, [facility] [place] 450 [facility], Floor [address]1 [place] [address] Jair Gonzalez MD, PhD [address] [place] [phone] Samm@[email or web address] 01/11/2025 10:30 AM EST Office Visit [facility], [facility] [address] [facility], 10th [place] [address] Jair Gonzalez MD, PhD 450 [place] [address] Samm@[email or web address] documented as of this encounter Visit Diagnoses Not on filedocumented in this encounter Care Teams Specialist Wound Care Relationship Specialty Start Date End Date Alban Abrams MD [address] [place] [address] [address] PCP - General Internal Medicine 02/17/17 Self-Referred, Patient Referring Physician 02/17/17 Jair Gonzalez MD, PhD [address] [place] [phone] [email or web address] Primary Oncologist Oncology 02/17/17 Jair Gonzalez MD, PhD [address] [place] [address] [email or web address] Primary Oncologist Oncology 02/17/17 Raymon Norman MD [address] [place] [address] [email or web address] Primary Oncologist Surgical Oncology 03/17/17 Shiloh Beck MD [address] [place] [address] [email or web address] Hematology and Oncology 12/30/17 documented as of this encounter Additional Source Comments The information contained in this document represents components of the legal health record. It is not the complete legal health record.[facility]
--- OUTSIDE RECORDS SUMMARY | 2024-11-01 14:48 | XMS_ITS | Encounter Summary ---
Author Organization [facility] Address [address] [facility] [address] [place] [address] Phone Care Team Providers Care Teacher Assistant Name Role Phone Alban Abrams MD Primary Care Provider [phone] Self-Referred, Patient Unavailable Unavailab Jair Rodriguez MD, PhD Unavailable [phone] Jair Gonzalez MD, PhD Unavailable [phone] Raymon Norman MD Unavailable Shiloh Beck MD Unavailable [phone] Encounter Details Date Type Department Care Team (Late st Contact Info) Description 10/23/2021 Procedure Pass [facility] Imaging Department, [facility] [place], [place] 450 [facility], Floor L1 [place] [address] Social History Tobacco Use Types Packs/Day Years [...] Info) Description 10/12/2024 Procedure Pass [facility] Imaging Department, [facility] [place] 450 [facility], Floor [address] [place] [address] 10/12/2024 Procedure Pass [facility] Imaging Department, [facility] [place] 450 [facility], Floor [address] [place] [address] 01/11/2025 6:45 AM EST Blood Draw [facility] Imaging Department, [facility], Imaging Kbpgr-ev-Ylcc 450 [facility], Floor [address]1 [place] [address] Jair Gonzalez MD, PhD [address] [place] [address] [email or web address] 01/11/2025 8:40 AM EST Appointment [facility] Imaging Department, [facility] [place] 450 [facility], Floor [address]1 [place] [address] Jair Gonzalez MD, PhD [address] [place] [phone] Samm@d [email or web address] 01/11/2025 10:30 AM EST Office Visit [facility], [address], 10th [place] [address] Jair Gonzalez MD, PhD [address] [place] [phone] [email or web address]@d [email or web address] documented as of this encounter Visit Diagnoses Not on filedocumented in this encounter Care Teams Teacher Assistant Relationship Specialty Start Date End Date Alban Arbams MD [address] [place] [address] [place] [address] PCP - General Internal Medicine 02/17/17 Self-Referred, Patient Referring Physician 02/17/17 Jair Gonzalez MD, PhD 450 [place] [address] [email or web address] Primary Oncologist Oncology 02/17/17 Jair Gonzalez MD, PhD 450 [place] [address] [email or web address] beds [facility] Primary Oncologist Oncology 02/17/17 Raymon Norman MD [address] [place] [address] [email or web address] Primary Oncologist Surgical Oncology 03/17/17 Shiloh Beck MD [address] [place] [address] [email or web address] Hematology and Oncology 12/30/17 documented as of this encounter Additional Source Comments The information contained in this document represents components of the legal health record. It is not the complete legal health record.[facility]
--- OUTSIDE RECORDS SUMMARY | 2024-11-01 14:48 | XMS_ITS | Encounter Summary ---
Author Organization [facility] Address [address] [place] [address] Phone Care Team Providers Care Shot Hole Driller Name Role Phone Alban Abrams MD Primary Care Provider [phone] Self-Referred, Patient Unavailable Unavailab Jair Rodriguez MD, PhD Unavailable Jair Gonzalez MD, PhD Unavailable [phone] Raymon Norman MD Unavailable [phone] Shiloh Beck MD Unavailable [phone] Encounter Details Date Type Department Care Team (Late st Contact Info) Description 12/30/2023 Procedure Pass [facility] Imaging Department, [facility] [place] 450 [facility], Floor L1 [place] [address] Social History Tobacco Use Types Packs/Day Years [...] st Contact Info) Description 10/12/2024 Procedure Pass [facility] Imaging Department, [facility] [place] 450 [facility], Floor [address]1 [place] [address] 10/12/2024 Procedure Pass [facility] Imaging Department, [facility] 450 [facility], Floor [address]1 [place] [address] 01/11/2025 6:45 AM EST Blood Draw [facility] Imaging Department, [facility], Imaging Xpium-my-Cbtv 450 [facility], Floor [address] [place] [address] Jair Gonzalez MD, PhD [address] [place] [phone] Samm@d [email or web address] 01/11/2025 8:40 AM EST Appointment [facility] Imaging [facility], [facility] 450 [facility], Floor [address]1 [place] [address] Jair Gonzalez MD, PhD [address] [place] [phone] Samm@d [email or web address] 01/11/2025 10:30 AM EST Office Visit [facility], [facility] 450 [facility], 10th [place] [address] Jair Gonzalez MD, PhD [address] [place] [phone] Samm@d [email or web address] documented as of this encounter Visit Diagnoses Not on filedocumented in this encounter Care Teams Shot Hole Driller Relationship Specialty Start Date End Date Alban Abrams MD [address] [place] [address] [place] [address] PCP - General Internal Medicine 02/17/17 Self-Referred, Patient Referring Physician 02/17/17 Jair Gonzalez MD, PhD [address] [place] [phone] [email or web address] Primary Oncologist Oncology 02/17/17 Jair Gonzalez MD, PhD [address] [place] [address] [email or web address] Primary Oncologist Oncology 02/17/17 Raymon Norman MD [address] [place] [address] [email or web address] Primary Oncologist Surgical Oncology 03/17/17 Shiloh Beck MD [address] [place] [phone] [email or web address] Hematology and Oncology 12/30/17 documented as of this encounter Additional Source Comments The information contained in this document represents components of the legal health record. It is not the complete legal health record.[facility]
--- OUTSIDE RECORDS SUMMARY | 2024-11-01 14:48 | XMS_ITS | Encounter Summary ---
Author Organization [facility] Address [address] [facility] [address] [place] [address] Phone Care Team Providers Care Sales Representative Metals Name Role Phone Alban Abrams MD Primary Care Provider Self-Referred, Patient Unavailable Unavailab Jair Rodriguez MD, PhD Unavailable [phone] Jair Gonzalez MD, PhD Unavailable [phone] Raymon Norman MD Unavailable [phone] Shiloh Beck MD Unavailable [phone] Encounter Details Date Type Department Care Team (Late st Contact Info) Description 10/23/2021 Procedure Pass [facility] Imaging Department, [facility] [place] 450 [facility], Floor L1 [place] [address] Social History Tobacco Use Types Packs/Day Years [...] st Contact Info) Description 10/12/2024 Procedure Pass [facility] Imaging Department, [facility], [place] 450 [facility], Floor L1 [place] [address] 10/12/2024 Procedure Pass [facility] Imaging Department, [facility] [place] 450 [facility], Floor [address] [place] [address] 01/11/2025 6:45 AM EST Blood Draw [facility] Imaging Department, [facility], Imaging Ojuet-hk-Wmsz 450 [facility], Floor [address] [place] [address] Jair Gonzalez MD, PhD [address] [place] [phone] [email or web address] 01/11/2025 8:40 AM EST Appointment [facility] Imaging Department, [facility] [place] 450 [facility], Floor [address] [place] [address] Jair Gonzalez MD, PhD [address] [place] [address] [email or web address] [email or web address] 01/11/2025 10:30 AM EST Office Visit [facility], [address], 10th [place] [address] Jair Gonzalez MD, PhD [address] [place] [phone] Samm@d [facility] documented as of this encounter Visit Diagnoses Not on filedocumented in this encounter Care Teams Sales Representative Metals Relationship Specialty Start Date End Date Alban Abrams MD [address] [place] [address] [place] [address] PCP - General Internal Medicine 02/17/17 Self-Referred, Patient Referring Physician 02/17/17 Jair Gonzalez MD, PhD 450 [place] [address] [email or web address] Primary Oncologist Oncology 02/17/17 Jair Gonzalez MD, PhD 450 [place] [address] [email or web address] Primary Oncologist Oncology 02/17/17 Raymon Norman MD [address] [place] [address] [email or web address] Primary Oncologist Surgical Oncology 03/17/17 Shiloh Beck MD [address] [place] [phone] [email or web address] Hematology and Oncology 12/30/17 documented as of this encounter Additional Source Comments The information contained in this document represents components of the legal health record. It is not the complete legal health record.[facility]
--- OUTSIDE RECORDS SUMMARY | 2024-11-01 14:48 | XMS_ITS | Encounter Summary ---
Author Organization [facility] Address [address] [facility] [address] [place] [address] Phone Care Team Providers Care Glass Vial Filler Name Role Phone Alban Abrams MD Primary Care Provider Self-Referred, Patient Unavailable Unavailab Jair Rodriguez MD, PhD Unavailable [phone] Jair Gonzalez MD, PhD Unavailable [phone] Raymon oNrman MD Unavailable [phone] Shiloh Beck MD Unavailable [phone] Encounter Details Date Type Department Care Team (Late st Contact Info) Description 11/16/2023 Procedure Pass [facility] Periop [address] [place] [address] Social History Tobacco Use Types Packs/Day Years [...] Date of Assessment Author No Risk Indicated 11/16/2023 8:13 PM EDT Kellie Mchugh RN * [place] Suicide Severity Rating Scale (Screener/Recent Self-Report) Question Answer Date of Assessment Author 1. Wish to be (Past 1 Month) No 11/16/2023 8:13 PM EDT Alem Camara RN 2. Non-Specific Active Suicidal Thoughts (Past 1 Month) No 11/16/2023 8:13 PM KATTYT Alem Camara RN 6. Suicidal Behavior (Lifetime) No 11/16/2023 8:13 PM KATTYT Alem Camara RN documented as of this encounter Plan of Treatment Upcoming Encounters Date Type Department Care Team (Late st Contact Info) Description 10/12/2024 Procedure Pass [facility], [facility], [place] [address] [facility], Floor [address]1 [place] [address] 10/12/2024 Procedure Pass [facility] Imaging Department, [facility], [place] [address] [facility], Floor [address] [place] [address] 01/11/2025 6:45 AM EST Blood Draw [facility] Imaging Department, [facility], Imaging Dcabz-nh-Bksq [address] [facility], Floor [address] [place] [address] Jair Gonzalez MD, PhD [address] [place] [address] [email or web address] 01/11/2025 8:40 AM EST Appointment [facility] Imaging Department, [facility], [place] [address] [facility], Floor [address]1 [place] [address] Jair Gonzalez MD, PhD [address] [place] [address] [email or web address] 01/11/2025 10:30 AM EST Office [facility], [address], 10th [place] [address] Jair Gonzalez MD, PhD [address] [place] [phone] [email or web address] documented as of this encounter Visit Diagnoses Not on filedocumented in this encounter Care Teams Glass Vial Filler Relationship Specialty Start Date End Date Alban Abrams MD [address] [place] [address] [place] [address] PCP - General Internal Medicine 02/17/17 Self-Referred, Patient Referring Physician 02/17/17 Jair Gonzalez MD, PhD [address] [place] [address] [email or web address] Primary Oncologist Oncology 02/17/17 Jair Gonzalez MD, PhD [address] [place] [address] [email or web address] Primary Oncologist Oncology 02/17/17 Raymon Norman MD [address] [place] [address] [email or web address] Primary Oncologist Surgical Oncology 03/17/17 Shiloh Beck MD [address] [place] [address] [email or web address] Hematology and Oncology 12/30/17 documented as of this encounter Additional Source Comments The information contained in this document represents components of the legal health record. It is not the complete legal health record.[facility]
--- OUTSIDE RECORDS SUMMARY | 2024-11-01 14:48 | XMS_ITS ---
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 Past Treatment and Therapy Plans Access and Flush Therapy Plan Plan Name Start Date Discontinue Date Treatment Medications Discontinue Reason Plan Provider ACCESS AND FLUSH (DFCI) 02/14/2020 06/17/2023 No medications scheduled. a. Therapy Complete Jair Gonzalez MD, PhD TREATMENT PLAN Plan Name Start Date Discontinue Date Treatment Medications Discontinue Reason Plan Provider Cycles OXALIPLA TIN/FLUO ROURACIL 1200 MG/M2/LE UCOVORIN 06/10/2017 08/10/2024 fluorouracil (ADRACIL)fluorou racil (ADRUCIL)fluorou racil (ADRUCIL) CADD pump infusion (total dose > 5000 mg, infusion time > 24 hours) (336 mL)oxaliplatin (ELOXATIN) IVPB a. Therapy Jair Marinelli MD, PhD 1 of 6 cycles started
--- OUTSIDE RECORDS SUMMARY | 2024-11-01 14:48 | XMS_ITS | Clinical Summary ---
Author Organization [facility] Address [address] [place] [address] Care Team Providers Care Costume Design Teacher Name Role Phone Pcp, No Primary Care [...] Health Maintenance Due Date Last Done Comments Advance Care Planning 1950 Hepatitis C Virus Screening 1950 DTaP/Tdap/Td Vaccines (1 - Tdap) 12/27/1967 Colonoscopy 1993 Pneumococcal Vaccines 50+ (1 of 1 - PCV) 1998 Zoster (Shingles) Vaccine (1 of 2) 1998 COVID-19 Vaccine ( - 2023-2 5 season) 2023 RSV Vaccine 60 years and old er and Patients (1 - 1-dose 75+ series) 12/27/2023 Influenza Vaccine 09/29/2024 Hepatitis B Vaccines Aged Out No long er eligible based on patient's age to complete this topic Insurance MEDICARE PART A & B [facility] Care Teams Costume Design Teacher Relationship Specialty Start Date End Date Pcp, No PCP - General General Medicine 11/23/22
--- OUTSIDE RECORDS SUMMARY | 2024-11-01 14:48 | XMS_ITS | Encounter Summary ---
Author Organization [facility] Address [address] [facility] [address] [place] [address] Phone Care Team Providers Care Sewer Pipe Layer Helper Name Role Phone Alban Abrams MD Primary Care Provider Self-Referred, Patient Unavailable Unavailab Jair Rodriguez MD, PhD Unavailable [phone] Jair Gonzalez MD, PhD Unavailable [phone] Raymon Norman MD Unavailable Shiloh Beck MD Unavailable [phone] Encounter Details Date Type Department Care Team (Late st Contact Info) Description 10/15/2017 Procedure Pass [facility] Imaging Department, [facility] [place], [place] [address] [facility], Floor [address]1 [place] [address] Social History Tobacco Use Types Packs/Day Years [...] Info) Description 10/12/2024 Procedure Pass [facility] Imaging Department, [facility], [place] [address] [facility], Floor [address]1 [place] [address] 10/12/2024 Procedure Pass [facility] Imaging Department, [facility], [place] [address] [facility], Floor [address]1 [place] [address] 01/11/2025 6:45 AM EST Blood Draw [facility] Imaging Department, [facility], Imaging Ukrrz-kw-Heop [address] [facility], Floor [address] [place] [address] Jair Gonzalez MD, PhD [address] [place] [phone] [email or web address] 01/11/2025 8:40 AM EST Appointment [facility] Imaging Department, [facility], [place] [address] [facility], Floor [address] [place] [address] Jair Gonzalez MD, PhD [address] [place] [phone] [email or web address] 01/11/2025 10:30 AM EST Office Visit [facility], [address], 10th [place] [address] Jair Gonzalez MD, PhD [address] [place] [address] [email or web address] documented as of this encounter Visit Diagnoses Not on filedocumented in this encounter Care Teams Sewer Pipe Layer Helper Relationship Specialty Start Date End Date Alban Abrams MD [address] [place] [address] [place] [address] PCP - General Internal Medicine 02/17/17 Self-Referred, Patient Referring Physician 02/17/17 Jair Gonzalez MD, PhD [address] [place] [address] [email or web address] Primary Oncologist Oncology 02/17/17 Jair Gonzalez MD, PhD [address] [place] [address] [email or web address] Primary Oncologist Oncology 02/17/17 Raymon Norman MD [address] [place] [phone] [email or web address] Primary Oncologist Surgical Oncology 03/17/17 Shiloh Beck MD [address] [place] [address] [email or web address] Hematology and Oncology 12/30/17 documented as of this encounter Additional Source Comments The information contained in this document represents components of the legal health record. It is not the complete legal health record.[facility]
--- OUTSIDE RECORDS SUMMARY | 2024-11-01 14:49 | XMS_ITS | Encounter Summary ---
Author Organization [facility] Address [address] [employer] [address] [facility] [address] [place] [address] Phone Care Team Providers Care Machinist Tool And Die Name Role Phone Alban Abrams MD Primary Care Provider [phone] Self-Referred, Patient Unavailable Unavailab Jair Rodriguez MD, PhD Unavailable [phone] Jair Gonzalez MD, PhD Unavailable [phone] Raymon Norman MD Unavailable [phone] Shiloh Beck MD Unavailable [phone] Encounter Details Date Type Department Care Team (Late st Contact Info) Description 04/02/2022 Procedure Pass [facility] Imaging Department, [facility] [place], [place] [address] [facility], Floor [address]1 [place] [address] Social History Tobacco Use Types Packs/Day Years [...] st Contact Info) Description 10/12/2024 Procedure Pass [facility] Imaging Department, [facility], [place] [address] [facility], Floor [address]1 [place] [address] 10/12/2024 Procedure Pass [facility] Imaging Department, [facility], [place] [address] [facility], Floor [address]1 [place] [address] 01/11/2025 6:45 AM EST Blood Draw [facility] Imaging Department, [facility], Imaging Nbngs-lw-Mwvf [address] [facility], Floor [address]1 [place] [address] Jair Gonzalez MD, PhD [address] [place] [address] [email or web address] 01/11/2025 8:40 AM EST Appointment [facility] Imaging Department, [facility], [place] [address] [facility], Floor [address]1 [place] [address] Jair Gonzalez MD, PhD [address] [place] [phone] [email or web address] [email or web address] 01/11/2025 10:30 AM EST Office Visit [facility], [address], 10th [place] [address] Jair Gonzalez MD, PhD [address] [place] [address] Samm@d [email or web address] documented as of this encounter Visit Diagnoses Not on filedocumented in this encounter Care Teams Machinist Tool And Die Relationship Specialty Start Date End Date Alban Abrams MD [address] [place] [address] [place] [address] PCP - General Internal Medicine 02/17/17 Self-Referred, Patient Referring Physician 02/17/17 Jair Gonzalez MD, PhD [address] [place] [address] [email or web address] Primary Oncologist Oncology 02/17/17 Jair Gonzalez MD, PhD [address] [place] [address] [email or web address] Primary Oncologist Oncology 02/17/17 Raymon Norman MD [address] [place] [address] [email or web address] Primary Oncologist Surgical Oncology 03/17/17 Shiloh Beck MD [address] [place] [phone] [email or web address] Hematology and Oncology 12/30/17 documented as of this encounter Additional Source Comments The information contained in this document represents components of the legal health record. It is not the complete legal health record.[facility]
--- OUTSIDE RECORDS SUMMARY | 2024-11-01 14:49 | XMS_ITS | Encounter Summary ---
Author Organization [facility] Address [address] [facility] [address] [place] [address] Phone Care Team Providers Care Physical Education Department Chair Name Role Phone Alban Abrams MD Primary Care Provider [phone] Self-Referred, Patient Unavailable Unavailab Jair Rodriguez MD, PhD Unavailable [phone] Jair Gonzalez MD, PhD Unavailable [phone] Raymon Norman MD Unavailable Shiloh Beck MD Unavailable Encounter Details Date Type Department Care Team (Late st Contact Info) Description 01/25/2024 Procedure Pass [facility] Periop [address] [place] [address] Social History Tobacco Use Types Packs/Day Years [...] st Contact Info) Description 10/12/2024 Procedure Pass [facility] Imaging Department, [facility] [place] [address] [facility], Floor [address]1 [place] [address] 10/12/2024 Procedure Pass [facility] Imaging Department, [facility], [place] [address] [facility], Floor [address]1 [place] [address] 01/11/2025 6:45 AM EST Blood Draw [facility] Imaging Department, [facility], Imaging Rmgwn-tj-Ugmc [address] [facility], Floor [address] [place] [address] Jair Gonzalez MD, PhD [address] [place] [address] Samm@d [email or web address] 01/11/2025 8:40 AM EST Appointment [facility] Imaging Department, [facility], [place] [address] [facility], Floor [address] [place] [address] Jair Gonzalez MD, PhD [address] [place] [address] Samm@d [email or web address] 01/11/2025 10:30 AM EST Office Visit [facility], [address], 10th [place] [address] Jair Gonzalez MD, PhD [address] [place] [address] [email or web address]@d [email or web address] documented as of this encounter Visit Diagnoses Not on filedocumented in this encounter Care Teams Physical Education Department Chair Relationship Specialty Start Date End Date Alban Abrams MD [address] [place] [address] [place] [address] PCP - General Internal Medicine 02/17/17 Self-Referred, Patient Referring Physician 02/17/17 Jair Gonzalez MD, PhD [address] [place] [phone] [email or web address] Primary Oncologist Oncology 02/17/17 Jair Gonzalez MD, PhD [address] [place] [address] [email or web address] Primary Oncologist Oncology 02/17/17 Raymon Norman MD [address] [place] [address] [email or web address] Primary Oncologist Surgical Oncology 03/17/17 Shiloh Beck MD [address] [place] [phone] [email or web address] Hematology and Oncology 12/30/17 documented as of this encounter Additional Source Comments The information contained in this document represents components of the legal health record. It is not the complete legal health record.[facility]
--- OUTSIDE RECORDS SUMMARY | 2024-11-01 14:49 | XMS_ITS | Encounter Summary ---
Author Organization [facility] Address [address] [place] [address] Phone Care Team Providers Care Mill Tender Washing Name Role Phone Alban Abrams MD Primary Care Provider [phone] Self-Referred, Patient Unavailable Unavailab Jair Rodriguez MD, PhD Unavailable [phone] Jair Gonzalez MD, PhD Unavailable [phone] Raymon Norman MD Unavailable [phone] Shiloh Beck MD Unavailable [phone] Encounter Details Date Type Department Care Team (Late st Contact Info) Description 01/05/2024 Procedure Pass [facility] [address] [place] [address] Social History Tobacco Use Types Packs/Day Years [...] Info) Description 10/12/2024 Procedure Pass [facility] Imaging Department, [facility], [place] [address] [facility], Floor [address]1 [place] [address] 10/12/2024 Procedure Pass [facility] Imaging Department, [facility], [place] [address] [facility], Floor [address]1 [place] [address] 01/11/2025 6:45 AM EST Blood Draw [facility] Imaging Department, [facility], Imaging Wpfyo-dn-Zxkz [address] [facility], Floor [address] [place] [address] Jair Gonzalez MD, PhD [address] [place] [address] Samm@[email or web address] 01/11/2025 8:40 AM EST Appointment [facility], [facility], [place] [address] [facility], Floor [address] [place] [address] Jair Gonzalez MD, PhD [address] [place] [address] [email or web address]@[email or web address] 01/11/2025 10:30 AM EST Office Visit [facility], [facility] [address] [facility], 10th [place] [address] Jair Gonzalez MD, PhD [address] [place] [address] [email or web address]@d [email or web address] documented as of this encounter Visit Diagnoses Not on filedocumented in this encounter Care Teams Mill Tender Washing Relationship Specialty Start Date End Date Alban Abrams MD [address] [place] [address] [place] [address] PCP - General Internal Medicine 02/17/17 Self-Referred, Patient Referring Physician 02/17/17 Jair Gonzalez MD, PhD [address] [place] [phone] [email or web address] Primary Oncologist Oncology 02/17/17 Jair Gonzalez MD, PhD [address] [place] [phone] [email or web address] Primary Oncologist Oncology 02/17/17 Raymon Norman MD [address] [place] [phone] [email or web address] Primary Oncologist Surgical Oncology 03/17/17 Shiloh Beck MD [address] [place] [phone] [email or web address] Hematology and Oncology 12/30/17 documented as of this encounter Additional Source Comments The information contained in this document represents components of the legal health record. It is not the complete legal health record.[facility]
--- OUTSIDE RECORDS SUMMARY | 2024-11-01 14:49 | XMS_ITS | Encounter Summary ---
Author Organization [facility] Address [address] [place] [address] Phone Care Team Providers Care Senior Regulatory Affairs Specialist Name Role Phone Alban Abrams MD Primary Care Provider [phone] Self-Referred, Patient Unavailable Unavailab Jair Rodriguez MD, PhD Unavailable [phone] Jair Gonzalez MD, PhD Unavailable [phone] Raymon Norman MD Unavailable [phone] Shiloh Beck MD Unavailable [phone] Encounter Details Date Type Department Care Team (Late st Contact Info) Description 08/11/[address] [facility] [address] [place] [address] Social History Tobacco Use Types Packs/Day Years [...] Info) Description 10/12/2024 Procedure Pass [facility] Imaging Department, [facility], [place] [address] [facility], Floor [address]1 [place] [address] 10/12/2024 Procedure Pass [facility] Imaging Department, [facility], [place] [address] [facility], [facility] L1 [place] [address] 01/11/2025 6:45 AM EST Blood Draw [facility] Imaging Department, [facility], Imaging Urjoo-cj-Jdsd [address] [place] [address], [facility] L1 [place] [address] Jair Gonzalez MD, PhD [address] [place] [phone] [email or web address] 01/11/2025 8:40 AM EST Appointment [facility] Imaging Department, [facility], [place] [address] [facility], [facility] [address]1 [place] [address] Jair Gonzalez MD, PhD [address] [place] [phone] [email or web address] 01/11/2025 10:30 AM EST Office Visit [facility], [address], 10th [place] [address] Jair Gonzalez MD, PhD [address] [place] [phone] Samm@d [email or web address] documented as of this encounter Visit Diagnoses Not on filedocumented in this encounter Care Teams Senior Regulatory Affairs Specialist Relationship Specialty Start Date End Date Alban Abrams MD [address] [place] [address] [facility] [place] [address] PCP - General Internal Medicine 02/17/17 Self-Referred, Patient Referring Physician 02/17/17 Jair Gonzalez MD, PhD [address] [place] [address] [email or web address] Primary Oncologist Oncology 02/17/17 Jair Gonzalez MD, PhD [address] [place] [address] [email or web address] Primary Oncologist Oncology 02/17/17 Raymon Norman MD [address] [place] [phone] [email or web address] Primary Oncologist Surgical Oncology 03/17/17 Shiloh Beck MD [address] [place] [address] [email or web address] Hematology and Oncology 12/30/17 documented as of this encounter Additional Source Comments The information contained in this document represents components of the legal health record. It is not the complete legal health record.[facility]
--- OUTSIDE RECORDS SUMMARY | 2024-11-01 14:49 | XMS_ITS | Encounter Summary ---
Author Organization [facility] Address [address] [place] [address] Phone Care Team Providers Care Jersey Knitter Name Role Phone Alban Abrams MD Primary Care Provider [phone] Self-Referred, Patient Unavailable Unavailab Jair Rodriguez MD, PhD Unavailable [phone] Jair Gonzalez MD, PhD Unavailable [phone] Raymon Norman MD Unavailable [phone] Shiloh Beck MD Unavailable [phone] Encounter Details Date Type Department Care Team (Late Contact Info) Description 06/07/2018 Procedure Pass [facility] Endoscopy Department [address] [place] [address] Social History Tobacco Use Types Packs/Day Years [...] Contact Info) Description 10/12/2024 Procedure Pass [facility] Imaging [facility], [facility], [place] [address], [address] [place] [address] 10/12/2024 Procedure Pass [facility] Imaging Department, [facility], [place] [address], [address] [place] [address] 01/11/2025 6:45 AM EST Blood Draw [facility] Imaging Department, [facility], Imaging Xmafz-dg-Dfyg [address], [address] [place] [address] Jair Gonzalez MD, PhD [address] [place] [phone] [email or web address] 01/11/2025 8:40 AM EST Appointment [facility] Imaging Department, [facility], [place] [address], Floor [address] [place] [address] Jair Gonzalez MD, PhD [address] [place] [phone] [email or web address] 01/11/2025 10:30 AM EST Office Visit [facility], [address], 10th [place] [address] Jair Gonzalez MD, PhD [address] [place] [phone] [email or web address] documented as of this encounter Visit Diagnoses Not on filedocumented in this encounter Care Teams Jersey Knitter Relationship Specialty Start Date End Date Alban Abrams MD [address] [place] [address] [place] [address] PCP - General Internal Medicine 02/17/17 Self-Referred, Patient Referring Physician 02/17/17 Jair Gonzalez MD, PhD [address] [place] [address] [email or web address] Primary Oncologist Oncology 02/17/17 Jair Gonzalez MD, PhD [address] [place] [address] [email or web address] Primary Oncologist Oncology 02/17/17 Raymon Norman MD [address] [place] [address] [email or web address] Primary Oncologist Surgical Oncology 03/17/17 Shiloh Beck MD [address] [place] [address] [email or web address] Hematology and Oncology 12/30/17 documented as of this encounter Additional Source Comments The information contained in this document represents components of the legal health record. It is not the complete legal health record.[facility]
--- OUTSIDE RECORDS SUMMARY | 2024-11-01 14:49 | XMS_ITS | Encounter Summary ---
Author Organization [facility] Address [address] [place] [address] Phone Care Team Providers Care Commercial Housekeeper Name Role Phone Alban Abrams MD Primary Care Provider [phone] Self-Referred, Patient Unavailable Unavailab Jair Rodriguez MD, PhD Unavailable [phone] Jair Gonzalez MD, PhD Unavailable [phone] Raymon Norman MD Unavailable [phone] Shiloh Beck MD Unavailable Encounter Details Date Type Department Care Team (Late Contact Info) Description 01/10/2019 Procedure Pass [facility] Endoscopy Department [address] [place] [address] Social History Tobacco Use Types Packs/Day Years [...] st Contact Info) Description 10/12/2024 Procedure Pass [facility] Imaging Department, [facility], [place] [address] [facility], Floor [address] [place] [address] 10/12/2024 Procedure Pass [facility] Imaging Department, [facility], [place] [address] [facility], [address] [place] [address] 01/11/2025 6:45 AM EST Blood Draw [facility] Imaging Department, [facility], Imaging Hijqw-li-Ixwa [address] [facility], [address] [place] [address] Jair Gonzalez MD, PhD [address] [place] [address] [email or web address] 01/11/2025 8:40 AM EST Appointment [facility] Imaging Department, [facility], [place] [address] [facility], Floor [address] [place] [address] Jair Gonzalez MD, PhD [address] [place] [phone] [email or web address] 01/11/2025 10:30 AM EST Office Visit [facility], [address], 10th [place] [address] Jair Gonzalez MD, PhD [address] [place] [phone] [email or web address] documented as of this encounter Visit Diagnoses Not on filedocumented in this encounter Care Teams Commercial Housekeeper Relationship Specialty Start Date End Date Alban Abrams MD [address] [place] [address] [place] [address] PCP - General Internal Medicine 02/17/17 Self-Referred, Patient Referring Physician 02/17/17 Jair Gonzalez MD, PhD [address] [place] [address] [email or web address] Primary Oncologist Oncology 02/17/17 Jair Gonzalez MD, PhD [address] [place] [address] [email or web address] Primary Oncologist Oncology 02/17/17 Raymon Norman MD [address] [place] [address] [email or web address] Primary Oncologist Surgical Oncology 03/17/17 Shiloh Beck MD [address] [place] [address] [email or web address] Hematology and Oncology 12/30/17 documented as of this encounter Additional Source Comments The information contained in this document represents components of the legal health record. It is not the complete legal health record.[facility]
--- OUTSIDE RECORDS SUMMARY | 2024-11-01 14:49 | XMS_ITS | Encounter Summary ---
Author Organization [facility] Address [address] [place] [address] Phone Care Team Providers Care Studio Control Operator Name Role Phone Alban Abrams MD Primary Care Provider [phone] Self-Referred, Patient Unavailable Unavailab Jair Rodriguez MD, PhD Unavailable [phone] Jair Gonzalez MD, PhD Unavailable [phone] Raymon Norman MD Unavailable [phone] Shiloh Beck MD Unavailable [phone] Encounter Details Date Type Department Care Team (Late st Contact Info) Description 08/11/2023 Procedure Pass [facility] [address] [place] [address] Social History Tobacco Use Types Packs/Day Years [...] st Contact Info) Description 10/12/2024 Procedure Pass [facility] Imaging Department, [facility], [place] [address] [facility], [address] [place] [address] 10/12/2024 Procedure Pass [facility] Imaging Department, [facility], [place] [address], [facility] L1 [place] [address] 01/11/2025 6:45 AM EST Blood Draw [facility] Imaging Department, [facility], Imaging Xvisq-hw-Eeqz [address] [place] [address], [facility] [address] [place] [address] Jair Gonzalez MD, PhD [address] [place] [phone] [email or web address] 01/11/2025 8:40 AM EST Appointment [facility] Imaging Department, [facility], [place] [address] [facility], [facility] [address]1 [place] [address] Jair Gonzalez MD, PhD [address] [place] [address] [email or web address] 01/11/2025 10:30 AM EST Office Visit [facility], [address], 10th [place] [address] Jair Gonzalez MD, PhD [address] [place] [address] [email or web address] documented as of this encounter Visit Diagnoses Not on filedocumented in this encounter Care Teams Studio Control Operator Relationship Specialty Start Date End Date Alban Abrams MD [address] [place] [address] [facility] [place] [address] PCP - General Internal Medicine 02/17/17 Self-Referred, Patient Referring Physician 02/17/17 Jair Gonzalez MD, PhD [address] [place] [address] [email or web address] Primary Oncologist Oncology 02/17/17 Jair Gonzalez MD, PhD [address] [place] [address] [email or web address] Primary Oncologist Oncology 02/17/17 Raymon Norman MD [address] [place] [phone] [email or web address] Primary Oncologist Surgical Oncology 03/17/17 Shiloh Beck MD [address] [place] [phone] [email or web address] H[facility] On[facility] 12/30/17 documented as of this encounter Additional Source Comments The information contained in this document represents components of the legal health record. It is not the complete legal health record.[facility]
--- OUTSIDE RECORDS SUMMARY | 2024-11-01 14:49 | XMS_ITS | Encounter Summary ---
Author Organization [facility] Address [address] [place] [address] Phone Care Team Providers Care Small Business Representative Name Role Phone Alban Abrams MD Primary Care Provider [phone] Self-Referred, Patient Unavailable Unavailab Jair Rodriguez MD, PhD Unavailable [phone] Jair Gonzalez MD, PhD Unavailable [phone] Raymon Norman MD Unavailable [phone] Shiloh Beck MD Unavailable [phone] Encounter Details Date Type Department Care Team (Late st Contact Info) Description 05/26/2023 Procedure Pass [facility] [address] [place] [address] Social History Tobacco Use Types Packs/Day Years [...] Info) Description 10/12/2024 Procedure Pass [facility] Imaging Department, [facility], [place] [address] [facility], Floor [address] [place] [address] 10/12/2024 Procedure Pass [facility] Imaging Department, [facility], [place] [address] [facility], [facility] [address] [place] [address] 01/11/2025 6:45 AM EST Blood Draw [facility] Imaging Department, [facility], Imaging Ohksy[employer] [address] [place] [address], Floor [address] [place] [address] Jair Gonzalez MD, PhD [address] [place] [address] [email or web address] 01/11/2025 8:40 AM EST Appointment [facility] Imaging Department, [facility], [place] [address] [facility], [facility] [address] [place] [address] Jair Gonzalez MD, PhD [address] [place] [phone] [email or web address] 01/11/2025 10:30 AM EST Office Visit [facility], [address], 10th [place] [address] Jair Gonzalez MD, PhD [address] [place] [address] [email or web address]@d [email or web address] documented as of this encounter Visit Diagnoses Not on filedocumented in this encounter Care Teams Small Business Representative Relationship Specialty Start Date End Date Alban Abrams MD [address] [place] [address] [address] PCP - General Internal Medicine 02/17/17 Self-Referred, Patient Referring Physician 02/17/17 Jair Gonzalez MD, PhD [address] [place] [address] [email or web address] Primary Oncologist Oncology 02/17/17 Jair Gonzalez MD, PhD [address] [place] [address] [email or web address] Primary Oncologist Oncology 02/17/17 Raymon Norman MD [address] [place] [address] [email or web address] Primary Oncologist Surgical Oncology 03/17/17 Shiloh Beck MD [address] [place] [address] [email or web address] Hematology and Oncology 12/30/17 documented as of this encounter Additional Source Comments The information contained in this document represents components of the legal health record. It is not the complete legal health record.[facility]
--- OUTSIDE RECORDS SUMMARY | 2024-11-01 14:49 | XMS_ITS | Encounter Summary ---
Author Organization [facility] Address [address] [place] [address] Phone Care Team Providers Care Wood Mechanist Name Role Phone Alban Abrams MD Primary Care Provider [phone] Self-Referred, Patient Unavailable Unavailab Jair Rodriguez MD, PhD Unavailable [phone] Jair Gonzalez MD, PhD Unavailable [phone] Raymon Norman MD Unavailable [phone] Shiloh Beck MD Unavailable [phone] Reason for Referral * MRI/CAT Scan - Closed Specialty Diagnoses / Procedures Referred By Alessandra t Referred To Contact Radiology Diagnoses Liver lesion Procedures CT Abdomen/Pelvis CT Abdomen Only (No Pelvis) CHG CT SCAN OF ABDOMEN COMBO CHG CT SCAN,ABDOMENT AND PELVIS,W CONTRAST Nikos Mendez MD Phone: tel: fax: mailto:[email or web address] Referral ID Status Reason Start Date Expiration Date Visits Re quested Visits Authorized [id number] Closed 08/30/2023 02/26/2024 1 1 Encounter Details Date Type Department Care Team (Late Contact Info) Description 08/30/2023 Ancillary Orders [facility] Radiology [facility] [address], 3rd Floor, [place] [address] Nikos Mendez MD [address] [place] [address] [email or web address] Liver lesion (Primary Dx) Social History Tobacco Use Types [...] Encounters Date Type Department Care Team (Late Contact Info) Description 10/12/2024 Procedure Pass [facility] Imaging Department, [facility], [place] [address] [facility], Floor [address]1 [place] [address] 10/12/2024 Procedure Pass [facility] Imaging Department, [facility] [place] [address] [facility] [address] [facility], Floor [address]1 [place] [address] 01/11/2025 6:45 AM EST Blood Draw [facility] Imaging Department, [facility], Imaging Rgcrh-kj-Bnoi [address] [facility] [address] [facility], Floor [address]1 [place] [address] Jair Gonzalez MD, PhD [address] [place] [address] Samm@[email or web address] 01/11/2025 8:40 AM EST Appointment [facility] Imaging Department, [facility], [place] [address] [facility], Floor [address]1 [place] [address] Jair Gonzalez MD, PhD [address] [place] [address] Samm@[email or web address] 01/11/2025 10:30 AM EST Office Visit [facility], [facility] [address] [facility], 10th [place] [address] Jair Gonzalez MD, PhD [address] [place] [phone] [email or web address] documented as of this encounter Results * CT ABDOMEN/PELVIS (LIVER) WITH CONTRAST (08/30/2023 6:30 PM EDT) Anatomical Region Laterality Modality Abdomen, Pelvis Computed Tomogra phy 08/31/2023 8:18 AM EDT Impressions 09/01/2023 11:41 AM EDT 1. Three liver metastases, two of which appear slightly increased in size in segment 5 and segment 6/7 and third is similar to prior allowing for variation in exam technique. 2. Small lung base nodules, as seen on prior chest CT. 3. No new sites of metastatic disease in the abdomen/pelvis Narrative 09/01/2023 11:[address] ABDOMEN/PELVIS (LIVER) WITH CONTRAST Referring clinician's provided indication for this examination in Epic: * Liver lesion, > 1cm, US nondiagnostic; Colorectal cancer, liver lesions. TECHNIQUE: Multidetector-row CT of the abdomen and pelvis was performed after administration of intravenous contrast using tailored dose modulation techniques. Images were reconstructed in the axial, coronal, and sagittal planes. COMPARISON: Abdominal MRI from July 14, 2023, CT abdomen/pelvis from May 23, 2023 FINDINGS: Lower Chest: Bilateral subcentimeter lung base nodules, more fully evaluated on June [address] No pleural effusions. Liver: Similar appearance with caudate lobe hypertrophy. Three lesions are again seen: * 3.2 x 2.6cm segment 5 lesion (10:28), previously 2.3 x 2.0cm remeasured in similar contrast phase. * 1.9 x 1.9 cm segment 6/7 lesion adjacent to the IVC (10:29), previously 1.2 x 1.0 remeasured in similar plane * 1.5 x 1.4 cm segment 2/3 lesion (10:21) at inferior aspect of remote ablation zone and adjacent to the stomach, previously 1.4 x 1.4 cm. Biliary: Cholelithiasis. No biliary system dilation. Spleen: No splenomegaly or focal lesions. Pancreas: No main duct dilation. Tiny cystic lesions better appreciated on prior MRI. Adrenal Glands: No nodules. Kidneys/Ureters: Unchanged cysts. Bilateral sub-5mm nonobstructing renal calyceal stones. No solid masses or hydronephrosis. Bowel: No distention or wall thickening. Post LAR with anastomosis in the pelvis. Colonic diverticulosis. Peritoneum/Retroperitoneum: No masses, pneumoperitoneum, or fluid. Mild stranding in the upper abdomen adjacent to the celiac artery origin (10:40), similar. Lymph Nodes: No lymphadenopathy. Pelvic Organs/Bladder: No mass. Vessels: No abdominal aortic aneurysm. Bones/Soft Tissues: No focal marrow replacing lesions. Small bilateral inguinal hernias. Laxity of left abdominal wall. Degenerative changes in the spine. Procedure Note Nikos Mendez MD - 09/01/2023 CT ABDOMEN/PELVIS (LIVER) WITH CONTRAST Referring clinician's provided indication for this examination in Epic: *Liver lesion, > 1cm, US nondiagnostic; Colorectal cancer, liver lesions. TECHNIQUE: Multidetector-row CT of the abdomen and pelvis was performedafter administration of intravenous contrast using tailored dosemodulation techniques. Images were reconstructed in the axial, coronal,and sagittal planes. COMPARISON: Abdominal MRI from July 14, 2023, CT abdomen/pelvis from 2023 FINDINGS: Lower Chest: Bilateral subcentimeter lung base nodules, more fullyevaluated on June [address] No pleural effusions. Liver: Similar appearance with caudate lobe hypertrophy. Three lesions are again seen: * 3.2 x 2.6cm segment 5 lesion (10:28), previously 2.3 x 2.0cm remeasuredin similar contrast phase. * 1.9 x 1.9 cm segment 6/7 lesion adjacent to the IVC (10:29), previously1.2 x 1.0 remeasured in similar plane * 1.5 x 1.4 cm segment 2/3 lesion (10:21) at inferior aspect of remoteablation zone and adjacent to the stomach, previously 1.4 x 1.4 cm. Biliary: Cholelithiasis. No biliary system dilation. Spleen: No splenomegaly or focal lesions. Pancreas: No main duct dilation. Tiny cystic lesions better appreciated onprior MRI. Adrenal Glands: No nodules. Kidneys/Ureters: Unchanged cysts. Bilateral sub-5mm nonobstructing renalcalyceal stones. No solid masses or hydronephrosis. Bowel: No distention or wall thickening. Post LAR with anastomosis in thepelvis. Colonic diverticulosis. Peritoneum/Retroperitoneum: No masses, pneumoperitoneum, or fluid. Mildstranding in the upper abdomen adjacent to the celiac artery origin(10:40), similar. Lymph Nodes: No lymphadenopathy. Pelvic Organs/Bladder: No mass. Vessels: No abdominal aortic aneurysm. Bones/Soft Tissues: No focal marrow replacing lesions. Small bilateralinguinal hernias. Laxity of left abdominal wall. Degenerative changes inthe spine. IMPRESSION: 1. Three liver metastases, two of which appear slightly increased in sizein segment 5 and segment 6/7 and third is similar to prior allowing forvariation in exam technique. 2. Small lung base nodules, as seen on prior chest CT. 3. No new sites of metastatic disease in the abdomen/pelvis Nikos Mendez MD IMG CT ABD/PELVIS Final Result documented in this encounter Visit Diagnoses Diagnosis Liver lesion Other specified disorders of liver Liver lesion- Primary Other specified disorders of liver documented in this encounter Care Teams Wood Mechanist Relationship Specialty Start Date End Date Alban Abrams MD [address] [place] [address] [place] [address] PCP - General Internal Medicine 02/17/17 Self-Referred, Patient Referring Physician 02/17/17 Jair Gonzalez MD, PhD [address] [place] [address] [email or web address] include 234 beds at [facility] Primary Oncologist Oncology 02/17/17 Jair Gonzalez MD, PhD [address] [place] [address] [email or web address] include 234 beds at the [facility] Primary Oncologist Oncology 02/17/17 Raymon Norman MD [address] [place] [address] [email or web address] Primary Oncologist Surgical Oncology 03/17/17 Shiloh Beck MD [address] [place] [address] Hematology and Oncology 12/30/17 documented as of this encounter Additional Source Comments The information contained in this document represents components of the legal health record. It is not the complete legal health record.[facility]
--- OUTSIDE RECORDS SUMMARY | 2024-11-01 14:49 | XMS_ITS | Encounter Summary ---
Author Organization [facility] Address [address] [place] [address] Phone Care Team Providers Care Director Asset Name Role Phone Alban Abrams MD Primary Care Provider [phone] Self-Referred, Patient Unavailable Unavailab Jair Rodriguez MD, PhD Unavailable [phone] Jair Gonzalez MD, PhD Unavailable [phone] Raymon Norman MD Unavailable [phone] Shiloh Beck MD Unavailable [phone] Encounter Details Date Type Department Care Team (Late st Contact Info) Description 03/11/2017 Procedure Pass [facility] OUTSIDE IMG [address] [place] [address] Social History Tobacco Use Types Packs/Day Years [...] (Late Contact Info) Description 10/12/2024 Procedure Pass [facility] Imaging Department, [facility] [place] [place] [address] [facility], Floor [address]1 [place] [address] 10/12/2024 Procedure Pass [facility] Imaging Department, [facility] [place] [address] [facility], [facility] L1 [place] [address] 01/11/2025 6:45 AM EST Blood Draw [facility] Imaging Department, [facility], Imaging Gogjl-gk-Xhgs [address] [facility], Floor [address]1 [place] [address] Jair Gonzalez MD, PhD [address] [place] [address] [email or web address] 01/11/2025 8:40 AM EST Appointment [facility] Imaging Department, [facility], [place] [address] [facility], Floor [address]1 [place] [address] Jair Gonzalez MD, PhD [address] [place] [address] Samm@d [email or web address] 01/11/2025 10:30 AM EST Office Visit [facility], [address], 10th [place] [address] Jair Gonzalez MD, PhD [address] [place] [address] [email or web address] documented as of this encounter Visit Diagnoses Not on filedocumented in this encounter Care Teams Director Asset Relationship Specialty Start Date End Date Alban Abrams MD [address] [place] [address] [place] [address] PCP - General Internal Medicine 02/17/17 Self-Referred, Patient Referring Physician 02/17/17 Jair Gonzalez MD, PhD [address] [place] [address] [email or web address] Primary Oncologist Oncology 02/17/17 Jair Gonzalez MD, PhD [address] [place] [address] [email or web address] Primary Oncologist Oncology 02/17/17 Raymon Norman MD [address] [place] [address] [email or web address] Primary Oncologist Surgical Oncology 03/17/17 Shiloh Beck MD 5 [place] [address] [email or web address] Hematology and Oncology 12/30/17 documented as of this encounter Additional Source Comments The information contained in this document represents components of the legal health record. It is not the complete legal health record.[facility]
--- OUTSIDE RECORDS SUMMARY | 2024-11-01 14:49 | XMS_ITS | Encounter Summary ---
Author Organization [facility] Address [address] [facility] [address] [place] [address] Phone Care Team Providers Care Keller Machine Operator Name Role Phone Alban Abrams MD Primary Care Provider [phone] Self-Referred, Patient Unavailable Unavailab Jair Rodriguez MD, PhD Unavailable [phone] Jair Gonzalez MD, PhD Unavailable [phone] Raymon Norman MD Unavailable [phone] Shiloh Beck MD Unavailable [phone] Encounter Details Date Type Department Care Team (Late st Contact Info) Description 04/02/2022 Procedure Pass [facility] Imaging Department, [facility] [place], [place] [address] [facility], Floor [address]1 [place] [address] Social History Tobacco Use Types Packs/Day Years [...] Description 10/12/2024 Procedure Pass [facility] Imaging Department, [facility], [place] [address] [facility], Floor [address]1 [place] [address] 10/12/2024 Procedure Pass [facility] Imaging Department, [facility], [place] [address] [facility], Floor [address]1 [place] [address] 01/11/2025 6:45 AM EST Blood Draw [facility] Imaging Department, [facility], Imaging Isrcy-rn-Pfti [address] [facility], Floor [address]1 [place] [address] Jair Gonzalez MD, PhD [address] [place] [phone] Samm@[email or web address] 01/11/2025 8:40 AM EST Appointment [facility] Imaging Department, [facility], [place] [address] [facility], Floor [address]1 [place] [address] Jair Gonzalez MD, PhD [address] [place] [address] [email or web address] [email or web address] 01/11/2025 10:30 AM EST Office Visit [facility], [address], 10th [place] [address] Jair Gonzalez MD, PhD [address] [place] [address] Samm@d [email or web address] documented as of this encounter Visit Diagnoses Not on filedocumented in this encounter Care Teams Keller Machine Operator Relationship Specialty Start Date End Date Alban Abrams MD [address] [place] [address] [place] [address] PCP - General Internal Medicine 02/17/17 Self-Referred, Patient Referring Physician 02/17/17 Jair Gonzalez MD, PhD [address] [place] [address] [email or web address] Primary Oncologist Oncology 02/17/17 Jair Gonzalez MD, PhD [address] [place] [address] [email or web address] Primary Oncologist Oncology 02/17/17 Raymon Norman MD [address] [place] [address] [email or web address] Primary Oncologist Surgical Oncology 03/17/17 Shiloh Beck MD [address] [place] [address] [email or web address] Hematology and Oncology 12/30/17 documented as of this encounter Additional Source Comments The information contained in this document represents components of the legal health record. It is not the complete legal health record.[facility]
--- OUTSIDE RECORDS SUMMARY | 2024-11-01 14:49 | XMS_ITS | Encounter Summary ---
Author Organization [facility] Address [address] [facility] [address] [place] [address] Phone Care Team Providers Care Screening Specialist Name Role Phone Alban Abrams MD Primary Care Provider [phone] Self-Referred, Patient Unavailable Unavailab Jair Rodriguez MD, PhD Unavailable [phone] Jair Gonzalez MD, PhD Unavailable [phone] Raymon Norman MD Unavailable [phone] Shiloh Beck MD Unavailable [phone] Encounter Details Date Type Department Care Team (Late st Contact Info) Description 10/03/2019 Procedure Pass [facility] Imaging Department, [facility] [place], [place] [address] [facility], Floor [address]1 [place] [address] Social History Tobacco Use Types Packs/Day Years [...] Contact Info) Description 10/12/2024 Procedure Pass [facility] Imaging Department, [facility], [place] [address] [facility], Floor [address]1 [place] [address] 10/12/2024 Procedure Pass [facility] Imaging Department, [facility], [place] [address] [facility], Floor [address] [place] [address] 01/11/2025 6:45 AM EST Blood Draw [facility] Imaging Department, [facility], Imaging Fmsgm-pd-Astv [address] [facility], Floor [address] [place] [address] Jair Gonzalez MD, PhD [address] [place] [address] Samm@d [email or web address] 01/11/2025 8:40 AM EST Appointment [facility] Imaging Department, [facility], [place] [address] [facility], Floor [address]1 [place] [address] Jair Gonzalez MD, PhD [address] [place] [phone] [email or web address] [email or web address] 01/11/2025 10:30 AM EST Office Visit [facility], [address], 10th [place] [address] Jair Gonzalez MD, PhD [address] [place] [phone] Samm@d [email or web address] documented as of this encounter Visit Diagnoses Not on filedocumented in this encounter Care Teams Screening Specialist Relationship Specialty Start Date End Date Alban Abrams MD [address] [place] [address] [place] [address] PCP - General Internal Medicine 02/17/17 Self-Referred, Patient Referring Physician 02/17/17 Jair Gonzalez MD, PhD 450 [place] [address] [email or web address] Primary Oncologist Oncology 02/17/17 Jair Gonzalez MD, PhD 450 [place] [address] [email or web address] Primary Oncologist Oncology 02/17/17 Raymon Norman MD [address] [place] [address] [email or web address] Primary Oncologist Surgical Oncology 03/17/17 Shiloh Beck MD [address] [place] [phone] [email or web address] Hematology and Oncology 12/30/17 documented as of this encounter Additional Source Comments The information contained in this document represents components of the legal health record. It is not the complete legal health record.[facility]
--- OUTSIDE RECORDS SUMMARY | 2024-11-01 14:49 | XMS_ITS | Encounter Summary ---
Author Organization [facility] Address [address] [place] [address] Phone Care Team Providers Care Reinforcer Name Role Phone Alban Abrams MD Primary Care Provider [phone] Self-Referred, Patient Unavailable Unavailab Jair Rodriguez MD, PhD Unavailable [phone] Jair Gonzalez MD, PhD Unavailable [phone] Raymon Norman MD Unavailable [phone] Shiloh Beck MD Unavailable Encounter Details Date Type Department Care Team (Late st Contact Info) Description 09/23/2023 Procedure Pass [facility] Imaging Department, [facility] [place], [place] [address] [facility], Floor L1 [place] [address] Social History Tobacco Use Types Packs/Day Years [...] Contact Info) Description 10/12/2024 Procedure Pass [facility] Imaging Department, [facility], [place] [address] [facility], Floor [address]1 [place] [address] 10/12/2024 Procedure Pass [facility] Imaging Department, [facility], [place] [address] [facility], Floor [address]1 [place] [address] 01/11/2025 6:45 AM EST Blood Draw [facility] Imaging Department, [facility], Imaging Ykami-xg-Exwp [address] [facility], Floor [address]1 [place] [address] Jair Gonzalez MD, PhD [address] [place] [address] [email or web address] 01/11/2025 8:40 AM EST Appointment [facility] Imaging Department, [facility], [place] [address] [facility], Floor L1 [place] [address] Jair Gonzalez MD, PhD [address] [place] [phone] [email or web address] 01/11/2025 10:30 AM EST Office Visit [facility], [facility] 450 [facility], 10th [place] [address] Jair Gonzalez MD, PhD 450 [place] [address] [email or web address] documented as of this encounter Visit Diagnoses Not on filedocumented in this encounter Care Teams Reinforcer Relationship Specialty Start Date End Date Alban Abrams MD [address] [place] [address] [address] PCP - General Internal Medicine 02/17/17 Self-Referred, Patient Referring Physician 02/17/17 Jair Gonzalez MD, PhD [address] [place] [phone] [email or web address] Primary Oncologist Oncology 02/17/17 Jair Gonzalez MD, PhD [address] [place] [address] Samm@[email or web address] Primary Oncologist Oncology 02/17/17 Raymon Norman MD [address] [place] [address] [email or web address] Primary Oncologist Surgical Oncology 03/17/17 Shiloh Beck MD [address] [place] [address] [email or web address] Hematology and Oncology 12/30/17 documented as of this encounter Additional Source Comments The information contained in this document represents components of the legal health record. It is not the complete legal health record.[facility]
--- OUTSIDE RECORDS SUMMARY | 2024-11-01 14:49 | XMS_ITS | Encounter Summary ---
Author Organization [facility] Address [address] [facility] [facility] [address] [place] [address] Phone Care Team Providers Care Supervisor Cemetery Workers Name Role Phone Alban Abrams MD Primary Care Provider [phone] Self-Referred, Patient Unavailable Unavailab Jair Rodriguez MD, PhD Unavailable [phone] Jair Gonzalez MD, PhD Unavailable [phone] Raymon Norman MD Unavailable [phone] Shiloh Beck MD Unavailable [phone] Encounter Details Date Type Department Care Team (Late st Contact Info) Description 05/26/2023 Procedure Pass [facility] Imaging, [place] [address] [place] [address] Social History Tobacco Use Types Packs/Day Years [...] st Contact Info) Description 10/12/2024 Procedure Pass [facility] [place] Imaging Department, [facility], [place] [address] [facility], Floor L1 [place] [address] 10/12/2024 Procedure Pass [facility] [place] Imaging Department, [facility], [place] [address] [facility], [facility] L1 [place] [address] 01/11/2025 6:45 AM EST Blood Draw [facility] [place] Imaging Department, [facility], Imaging Cfaub-tl-Fktp [address] [place] [address], Floor L1 [place] [address] Jair Gonzalez MD, PhD [address] [place] [address] Samm@[email or web address] 01/11/2025 8:40 AM EST Appointment [facility] [place] Imaging Department, [facility], [place] [address] [facility], [facility] L1 [place] [address] Jair Gonzalez MD, PhD [address] [place] [phone] Samm@[email or web address] 01/11/2025 10:30 AM EST Office Visit [facility], [address], 10th [place] [address] Jair Gonzalez MD, PhD [address] [place] [address] Samm@d [email or web address] documented as of this encounter Visit Diagnoses Not on filedocumented in this encounter Care Teams Supervisor Cemetery Workers Relationship Specialty Start Date End Date Alban Abrams MD [address] [place] [address] [address] PCP - General Internal Medicine 02/17/17 Self-Referred, Patient Referring Physician 02/17/17 Jair Gonzalez MD, PhD 450 [place] [address] [email or web address] Primary Oncologist Oncology 02/17/17 Jair Gonzalez MD, PhD 450 [place] [address] Samm@[email or web address] Primary Oncologist Oncology 02/17/17 Raymon Norman MD [address] [place] [phone] [email or web address] Primary Oncologist Surgical Oncology 03/17/17 Shiloh Beck MD [address] [place] [phone] [email or web address] Hematology and Oncology 12/30/17 documented as of this encounter Additional Source Comments The information contained in this document represents components of the legal health record. It is not the complete legal health record.[facility]
--- OUTSIDE RECORDS SUMMARY | 2024-11-01 14:49 | XMS_ITS | Encounter Summary ---
Author Organization [facility] Address [address] [place] [address] Phone Care Team Providers Care Cereal Maker Name Role Phone Alban Abrams MD Primary Care Provider Self-Referred, Patient Unavailable Unavailab Jair Rodriguez MD, PhD Unavailable [phone] Jair Gonzalez MD, PhD Unavailable [phone] Raymon Norman MD Unavailable Shiloh Beck MD Unavailable [phone] Encounter Details Date Type Department Care Team (Late st Contact Info) Description 01/05/2024 Procedure Pass [facility] [address] [place] [address] Social History Tobacco Use Types Packs/Day Years [...] Info) Description 10/12/2024 Procedure Pass [facility] Imaging Department, [facility], [place] [address] [facility], Floor L1 [place] [address] 10/12/2024 Procedure Pass [facility] Imaging Department, [facility], [place] [address] [facility], Floor L1 [place] [address] 01/11/2025 6:45 AM EST Blood Draw [facility] Imaging Department, [facility], Imaging Gtaqn-vw-Ktgt [address] [facility], Floor [address]1 [place] [address] Jair Gonzalez MD, PhD 450 [place] [address] Samm@[email or web address] 01/11/2025 8:40 AM EST Appointment [facility], [facility], [place] [address] [facility], Floor L1 [place] [address] Jair Gonzalez MD, PhD [address] [place] [address] Samm@d [email or web address] 01/11/2025 10:30 AM EST Office Visit [facility], [facility] 450 [facility], 10th [place] [address] Jair Gonzalez MD, PhD 450 [place] [address] [email or web address] [email or web address] documented as of this encounter Visit Diagnoses Not on filedocumented in this encounter Care Teams Cereal Maker Relationship Specialty Start Date End Date Alban Abrams MD [address] [place] [address] [place] [address] PCP - General Internal Medicine 02/17/17 Self-Referred, Patient Referring Physician 02/17/17 Jair Gonzalez MD, PhD [address] [place] [phone] [email or web address] Primary Oncologist Oncology 02/17/17 Jair Gonzalez MD, PhD [address] [place] [address] Samm@[email or web address] Primary Oncologist Oncology 02/17/17 Raymon Norman MD [address] [place] [phone] [email or web address] Primary Oncologist Surgical Oncology 03/17/17 Shiloh Beck MD [address] [place] [phone] [email or web address] Hematology and Oncology 12/30/17 documented as of this encounter Additional Source Comments The information contained in this document represents components of the legal health record. It is not the complete legal health record.[facility]
--- OUTSIDE RECORDS SUMMARY | 2024-11-01 14:49 | XMS_ITS | Encounter Summary ---
Author Organization [facility] Address [address] [place] [address] Phone Care Team Providers Care Gas Turbine Mechanic Name Role Phone Alban Abrams MD Primary Care Provider [phone] Self-Referred, Patient Unavailable Unavailab Jair Rodriguez MD, PhD Unavailable [phone] Jair Gonzalez MD, PhD Unavailable [phone] Raymon Norman MD Unavailable Shiloh Beck MD Unavailable [phone] Encounter Details Date Type Department Care Team (Late st Contact Info) Description 09/23/2023 Procedure Pass [facility] [address] [facility], Floor [address]1 [place] [address] Social History Tobacco Use Types Packs/Day Years [...] Contact Info) Description 10/12/2024 Procedure Pass [facility] Imaging Department, [facility], [place] [address] [facility], Floor [address]1 [place] [address] 10/12/2024 Procedure Pass [facility] Imaging Department, [facility], [place] [address] [facility], Floor [address]1 [place] [address] 01/11/2025 6:45 AM EST Blood Draw [facility] Imaging Department, [facility], Imaging Hzpwn-cl-Jgif [address] [facility], Floor [address]1 [place] [address] Jair Gonzalez MD, PhD [address] [place] [phone] [email or web address] 01/11/2025 8:40 AM EST Appointment [facility] Imaging Department, [facility], [place] [address] [facility], Floor [address]1 [place] [address] Jair Gonzalez MD, PhD [address] [place] [phone] [email or web address] 01/11/2025 10:30 AM EST Office Visit [facility], [facility] 450 [facility], 10th [place] [address] Jair Gonzalez MD, PhD 450 [place] [address] [email or web address] documented as of this encounter Visit Diagnoses Not on filedocumented in this encounter Care Teams Gas Turbine Mechanic Relationship Specialty Start Date End Date Alban Abrams MD [address] [place] [address] [address] PCP - General Internal Medicine 02/17/17 Self-Referred, Patient Referring Physician 02/17/17 Jair Gonzalez MD, PhD [address] [place] [phone] [email or web address] Primary Oncologist Oncology 02/17/17 Jair Gonzalez MD, PhD [address] [place] [phone] Samm@[email or web address] Primary Oncologist Oncology 02/17/17 Raymon Norman MD [address] [place] [address] [email or web address] Primary Oncologist Surgical Oncology 03/17/17 Shiloh Beck MD [address] [place] [phone] [email or web address] Hematology and Oncology 12/30/17 documented as of this encounter Additional Source Comments The information contained in this document represents components of the legal health record. It is not the complete legal health record.[facility]
--- OUTSIDE RECORDS SUMMARY | 2024-11-01 14:49 | XMS_ITS | Encounter Summary ---
Author Organization [facility] Address [address] [facility] [address] [place] [address] Phone Care Team Providers Care Medical Detailist Name Role Phone Alban Abrams MD Primary Care Provider [phone] Self-Referred, Patient Unavailable Unavailab Jair Rodriguez MD, PhD Unavailable [phone] Jair Gonzalez MD, PhD Unavailable [phone] Raymon Norman MD Unavailable Shiloh Beck MD Unavailable Encounter Details Date Type Department Care Team (Late st Contact Info) Description 10/03/2019 Procedure Pass [facility] Imaging Department, [facility] [address] [facility], Floor [address]1 [place] [address] Social History Tobacco Use Types Packs/Day Years [...] st Contact Info) Description 10/12/2024 Procedure Pass [facility] Imaging Department, [facility], [place] [address] [facility], Floor [address]1 [place] [address] 10/12/2024 Procedure Pass [facility] Imaging Department, [facility] [address] [facility], Floor [address] [place] [address] 01/11/2025 6:45 AM EST Blood Draw [facility] Imaging Department, [facility], Imaging Pktwg-vl-Ddfp [address] [facility], Floor [address] [place] [address] Jair Gonzalez MD, PhD [address] [place] [address] [email or web address] 01/11/2025 8:40 AM EST Appointment [facility] Imaging Department, [facility] [address] [facility], Floor [address]1 [place] [address] Jair Gonzalze MD, PhD [address] [place] [address] [email or web address] [email or web address] 01/11/2025 10:30 AM EST Office Visit [facility], [address], 10th [place] [address] Jair Gonzalez MD, PhD [address] [place] [address] [email or web address] documented as of this encounter Visit Diagnoses Not on filedocumented in this encounter Care Teams Medical Detailist Relationship Specialty Start Date End Date Alban Abrams MD [address] [place] [address] [place] [address] PCP - General Internal Medicine 02/17/17 Self-Referred, Patient Referring Physician 02/17/17 Jair Gonzalez MD, PhD [address] [place] [address] [email or web address] Primary Oncologist Oncology 02/17/17 Jair Gonzalez MD, PhD [address] [place] [address] [email or web address] Primary Oncologist Oncology 02/17/17 Raymon Normna MD [address] [place] [address] [email or web address] Primary Oncologist Surgical Oncology 03/17/17 Shiloh Beck MD [address] [place] [address] [email or web address] Hematology and Oncology 12/30/17 documented as of this encounter Additional Source Comments The information contained in this document represents components of the legal health record. It is not the complete legal health record.[facility]
--- OUTSIDE RECORDS SUMMARY | 2024-11-01 14:49 | XMS_ITS | Encounter Summary ---
Author Organization [facility] Address [address] [place] [address] Phone Care Team Providers Care Grinder Operator Surface Tool Name Role Phone Alban Abrams MD Primary Care Provider [phone] Self-Referred, Patient Unavailable Unavailab Jair Rodriguez MD, PhD Unavailable [phone] Jair Gonzalez MD, PhD Unavailable [phone] Raymon Norman MD Unavailable [phone] Shiloh Beck MD Unavailable [phone] Encounter Details Date Type Department Care Team (Late st Contact Info) Description 10/27/2023 Procedure Pass [facility] [address] [place] [address] Social History Tobacco Use Types Packs/Day Years [...] st Contact Info) Description 10/12/2024 Procedure Pass [facility] Imaging Department, [facility], [place] [address] [facility], Floor [address]1 [place] [address] 10/12/2024 Procedure Pass [facility] Imaging Department, [facility], [place] [address] [facility], [address] [place] [address] 01/11/2025 6:45 AM EST Blood Draw [facility] Imaging Department, [facility], Imaging Hhrlf-gq-Qttg [address] [facility], [address] [place] [address] Jair Gonzalez MD, PhD [address] [place] [address] [email or web address] 01/11/2025 8:40 AM EST Appointment [facility] Imaging Department, [facility], [place] [address] [facility], Floor [address] [place] [address] Jair Gonzalez MD, PhD 450 [place] [address] Samm@d [email or web address] 01/11/2025 10:30 AM EST Office Visit [facility], [facility] [address] [facility], 10th [place] [address] Jair Gonzalez MD, PhD [address] [place] [address] Samm@d [email or web address] documented as of this encounter Visit Diagnoses Not on filedocumented in this encounter Care Teams Grinder Operator Surface Tool Relationship Specialty Start Date End Date Alban Abrams MD [address] [place] [address] [place] [address] PCP - General Internal Medicine 02/17/17 Self-Referred, Patient Referring Physician 02/17/17 Jair Gonzalez MD, PhD [address] [place] [address] [email or web address] Primary Oncologist Oncology 02/17/17 Jair Gonzalez MD, PhD [address] [place] [address] [email or web address] Primary Oncologist Oncology 02/17/17 Raymon Norman MD [address] [place] [address] [email or web address] Primary Oncologist Surgical Oncology 03/17/17 Shiloh Beck MD [address] [place] [address] [email or web address] Hematology and Oncology 12/30/17 documented as of this encounter Additional Source Comments The information contained in this document represents components of the legal health record. It is not the complete legal health record.[facility]
--- OUTSIDE RECORDS SUMMARY | 2024-11-01 14:50 | XMS_ITS | Encounter Summary ---
Author Organization [facility] Address [address] [facility] [address] [place] [address] Phone Care Team Providers Care Home Demonstration Agent Name Role Phone Alban Abrams MD Primary Care Provider [phone] Self-Referred, Patient Unavailable Unavailab Jair Rodriguez MD, PhD Unavailable [phone] Jair Gonzalez MD, PhD Unavailable [phone] Raymon Norman MD Unavailable [phone] Shiloh Beck MD Unavailable Encounter Details Date Type Department Care Team (Late Contact Info) Description 05/25/2017 Procedure Pass [facility] Imaging, [place] [address] [place] [address] Social History Tobacco Use Types Packs/Day Years [...] st Contact Info) Description 10/12/2024 Procedure Pass [facility] Imaging Department, [facility] [address] [facility], Floor [address]1 [place] [address] 10/12/2024 Procedure Pass [facility] Imaging Department, [facility] [address] [facility], [address]1 [place] [address] 01/11/2025 6:45 AM EST Blood Draw [facility] Imaging Department, [facility], Imaging Qhndl-yg-Epnp [address] [facility], Floor [address]1 [place] [address] Jair Gonzalez MD, PhD [address] [place] [address] [email or web address] 01/11/2025 8:40 AM EST Appointment [facility] Imaging Department, [facility], [place] [address] [facility], Floor [address]1 [place] [address] Jair Gonzalez MD, PhD [address] [place] [address] [email or web address] [email or web address] 01/11/2025 10:30 AM EST Office Visit [facility], [address], 10th [place] [address] Jair Gonzalez MD, PhD [address] [place] [phone] Samm@d [email or web address] documented as of this encounter Visit Diagnoses Not on filedocumented in this encounter Care Teams Home Demonstration Agent Relationship Specialty Start Date End Date Alban Abrams MD [address] [place] [address] [place] [address] PCP - General Internal Medicine 02/17/17 Self-Referred, Patient Referring Physician 02/17/17 Jair Gonzalez MD, PhD 450 [place] [address] [email or web address] Primary Oncologist Oncology 02/17/17 Jair Gonzalez MD, PhD 450 [place] [address] [email or web address] Primary Oncologist Oncology 02/17/17 Raymon Norman MD [address] [place] [address] [email or web address] Primary Oncologist Surgical Oncology 03/17/17 Shiloh Beck MD [address] [place] [phone] [email or web address] [facility] [employer] Hematology and Oncology 12/30/17 documented as of this encounter Additional Source Comments The information contained in this document represents components of the legal health record. It is not the complete legal health record.[facility]
--- OUTSIDE RECORDS SUMMARY | 2024-11-01 14:50 | XMS_ITS | Encounter Summary ---
Author Organization [facility] Address [address] [facility] [address] [place] [address] Phone Care Team Providers Care Rotary Engine Assembler Name Role Phone Alban Abrams MD Primary Care Provider [phone] Self-Referred, Patient Unavailable Unavailab Jair Rodriguez MD, PhD Unavailable [phone] Jair Gonzalez MD, PhD Unavailable [phone] Raymon Norman MD Unavailable Shiloh Beck MD Unavailable [phone] Encounter Details Date Type Department Care Team (Late st Contact Info) Description 12/15/2022 Procedure Pass [facility] Periop [address] [place] [address] Social History Tobacco Use Types Packs/Day Years [...] Date of Assessment Author No Risk Indicated 12/15/2022 11:00 PM EDT Orly Milton RN * [place] Suicide Severity Rating Scale (Screener/Recent Self-Report) Question Answer Date of Assessment Author 1. Wish to be (Past 1 Month) No 023 11:00 PM EDT Orly Milton RN 2. Non-Specific Active Suici tra Thoughts (Past 1 Month) No 12/15/2022 11:00 PM EDT Orly Milton RN 6. Suicidal Behavior (Lifetime) No 11:00 PM EDT Orly Milton RN documented as of this encounter Plan of Treatment Upcoming Encounters Date Type Department Care Team (Late st Contact Info) Description 10/12/2024 Procedure Pass [facility] Imaging Department, [facility] [address] [facility], Floor [address]1 [place] [address] 10/12/2024 Procedure Pass [facility] Imaging Department, [facility], [place] [address] [facility], [address]1 [place] [address] 01/11/2025 6:45 AM EST Blood Draw [facility] Imaging Department, [facility], Imaging Lxqtf-nk-Xxie [address] [facility], [address]1 [place] [address] Jair Gonzalez MD, PhD 450 [place] [address] [email or web address] [email or web address] 01/11/2025 8:40 AM EST Appointment [facility] Imaging Department, [facility], [place] [address] [facility], [address]1 [place] [address] Jair Gonzalez MD, PhD 450 [place] [address] Samm@d [facility] 01/11/2025 10:30 AM EST Office Visit [facility], [facility] [place] 450 [facility], 10th [place] [address] Jair Gonzalez MD, PhD 450 [place] [address] Samm@d [facility] documented as of this encounter Visit Diagnoses Not on filedocumented in this encounter Care Teams Rotary Engine Assembler Relationship Specialty Start Date End Date Alban Abrams MD [address] [place] [address] [place] [address] PCP - General Internal Medicine 02/17/17 Self-Referred, Patient Referring Physician 02/17/17 Jair Gonzalez MD, PhD [address] [place] [address] [email or web address] Primary Oncologist Oncology 02/17/17 Jair Gonzalez MD, PhD [address] [place] [phone] [email or web address] Primary Oncologist Oncology 02/17/17 Raymon Norman MD [address] [place] [address] [email or web address] Primary Oncologist Surgical Oncology 03/17/17 Shiloh Beck MD [address] [place] [address] [email or web address] Hematology and Oncology 12/30/17 documented as of this encounter Additional Source Comments The information contained in this document represents components of the legal health record. It is not the complete legal health record.[facility]
--- OUTSIDE RECORDS SUMMARY | 2024-11-01 14:50 | XMS_ITS | Encounter Summary ---
Author Organization [facility] Address [address] [facility] [address] [place] [address] Phone Care Team Providers Care Clerical Car Checker Name Role Phone Alban Abrams MD Primary Care Provider [phone] Self-Referred, Patient Unavailable Unavailab Jair Rodriguez MD, PhD Unavailable [phone] Jair Gonzalez MD, PhD Unavailable [phone] Raymon Norman MD Unavailable [phone] Shiloh Beck MD Unavailable [phone] Encounter Details Date Type Department Care Team (Late st Contact Info) Description 04/16/2017 Procedure Pass [facility] Periop [address] [place] [address] Social History Tobacco Use Types Packs/Day Years [...] Contact Info) Description 10/12/2024 Procedure Pass [facility] Imaging Department, [facility], [place] [address] [facility], Floor [address]1 [place] [address] 10/12/2024 Procedure Pass [facility] Imaging Department, [facility], [place] [address] [facility], Floor [address]1 [place] [address] 01/11/2025 6:45 AM EST Blood Draw [facility] Imaging Department, [facility], Imaging Jomxc-zo-Dtdg [address] [facility], Floor [address]1 [place] [address] Jair Gonzalez MD, PhD [address] [place] [phone] Samm@d [email or web address] 01/11/2025 8:40 AM EST Appointment [facility] Imaging Department, [facility], [place] [address] [facility], Floor [address]1 [place] [address] Jair Gonzalez MD, PhD [address] [place] [phone] Samm@d [email or web address] 01/11/2025 10:30 AM EST Office Visit [facility], [address], 10th [place] [address] Jair Gonzalez MD, PhD [address] [place] [phone] Samm@d [email or web address] documented as of this encounter Visit Diagnoses Not on filedocumented in this encounter Care Teams Clerical Car Checker Relationship Specialty Start Date End Date Alban Abrams MD [address] [place] [address] [place] [address] PCP - General Internal Medicine 02/17/17 Self-Referred, Patient Referring Physician 02/17/17 Jair Gonzalez MD, PhD 450 [place] [address] Samm@[email or web address] Primary Oncologist Oncology 02/17/17 Jair Gonzalez MD, PhD 450 [place] [address] Samm@[email or web address] Primary Oncologist Oncology 02/17/17 Raymon Norman MD [address] [place] [address] [email or web address] Primary Oncologist Surgical Oncology 03/17/17 Shiloh Beck MD [address] [place] [phone] Hematology and Oncology 12/30/17 documented as of this encounter Additional Source Comments The information contained in this document represents components of the legal health record. It is not the complete legal health record.[facility]
--- OUTSIDE RECORDS SUMMARY | 2024-11-01 14:50 | XMS_ITS | Encounter Summary ---
Author Organization [facility] Address [address] [facility] [address] [place] [address] Phone Care Team Providers Care Pulper Tender Name Role Phone Alban Abrams MD Primary Care Provider [phone] Self-Referred, Patient Unavailable Unavailab Jair Rodriguez MD, PhD Unavailable [phone] Jair Gonzalez MD, PhD Unavailable [phone] Raymon Norman MD Unavailable [phone] Shiloh Beck MD Unavailable [phone] Encounter Details Date Type Department Care Team (Late st Contact Info) Description 10/24/2020 Procedure Pass [facility] [place] [address] [facility] 3rd [place] [address] Social History Tobacco Use Types Packs/Day Years [...] Info) Description 10/12/2024 Procedure Pass [facility] Imaging Department, [employer], [place] [address] [facility], Floor [address]1 [place] [address] 10/12/2024 Procedure Pass [facility] Imaging Department, [employer], [place] [address] [facility], Floor [address] [place] [address] 01/11/2025 6:45 AM EST Blood Draw [facility] Imaging Department, [employer], Imaging Lknrd-dj-Kybz [address] [facility], Floor [address] [place] [address] Jair Gonzalez MD, PhD [address] [place] [address] [email or web address] 01/11/2025 8:40 AM EST Appointment [facility] Imaging Department, [employer], [place] [address] [facility], Floor [address] [place] [address] Jair Gonzalez MD, PhD [address] [place] [address] [address] [email or web address] [email or web address] 01/11/2025 10:30 AM EST Office Visit [facility], [address], 10th [place] [address] Jair Gonzalez MD, PhD [address] [place] [address] [email or web address] documented as of this encounter Visit Diagnoses Not on filedocumented in this encounter Care Teams Pulper Tender Relationship Specialty Start Date End Date Alban Abrams MD [address] [place] [address] [place] [address] PCP - General Internal Medicine 02/17/17 Self-Referred, Patient Referring Physician 02/17/17 Jair Gonzalez MD, PhD 450 [place] [address] [email or web address] Primary Oncologist Oncology 02/17/17 Jair Gonzalez MD, PhD 450 [place] [address] [email or web address] Primary Oncologist Oncology 02/17/17 Raymon Norman MD [address] [place] [address] [email or web address] Primary Oncologist Surgical Oncology 03/17/17 Shiloh Beck MD [address] [place] [address] [email or web address] Hematology and Oncology 12/30/17 documented as of this encounter Additional Source Comments The information contained in this document represents components of the legal health record. It is not the complete legal health record.[facility]
--- OUTSIDE RECORDS SUMMARY | 2024-11-01 14:50 | XMS_ITS | Encounter Summary ---
Author Organization [facility] Address [address] [facility] [address] [place] [address] Phone Care Team Providers Care Supervisor Filtration Name Role Phone Alban Abrams MD Primary Care Provider [phone] Self-Referred, Patient Unavailable Unavailab Jair Rodriguez MD, PhD Unavailable [phone] Jair Gonzalez MD, PhD Unavailable [phone] Raymon Norman MD Unavailable [phone] Shiloh Beck MD Unavailable [phone] Encounter Details Date Type Department Care Team (Late st Contact Info) Description 10/24/2020 Procedure Pass [facility] [place], MRI [address] [facility] 4th [place] [address] Social History Tobacco Use Types Packs/Day Years [...] [facility], [facility], [place] 450 [facility], Floor L1 [place] [address] 10/12/2024 Procedure Pass [facility] Imaging Department, [facility], [place] 450 [facility], Floor [address]1 [place] [address] 01/11/2025 6:45 AM EST Blood Draw [facility] Imaging Department, [facility], Imaging Svchj-td-Djbp [address] [facility], Floor [address]1 [place] [address] Jair Gonzalez MD, PhD [address] [place] [phone] [email or web address] 01/11/2025 8:40 AM EST Appointment [facility] Imaging Department, [facility], [place] [address] [facility], Floor [address]1 [place] [address] Jair Gonzalez MD, PhD [address] [place] [address] [email or web address] [email or web address] 01/11/2025 10:30 AM EST Office Visit [facility], [address], 10th [place] [address] Jair Gonzalez MD, PhD [address] [place] [phone] [email or web address] documented as of this encounter Visit Diagnoses Not on filedocumented in this encounter Care Teams Supervisor Filtration Relationship Specialty Start Date End Date Alban Abrams MD [address] [place] [address] [place] [address] PCP - General Internal Medicine 02/17/17 Self-Referred, Patient Referring Physician 02/17/17 Jair Gonzalez MD, PhD 450 [place] [address] [email or web address] Primary Oncologist Oncology 02/17/17 Jair Gonzalez MD, PhD 450 [place] [address] [email or web address] Primary Oncologist Oncology 02/17/17 Raymon Norman MD [address] [place] [address] [email or web address] Primary Oncologist Surgical Oncology 03/17/17 Shiloh Beck MD [address] [place] [address] [email or web address] Hematology and Oncology 12/30/17 documented as of this encounter Additional Source Comments The information contained in this document represents components of the legal health record. It is not the complete legal health record.[facility]
--- OUTSIDE RECORDS SUMMARY | 2024-11-01 14:50 | XMS_ITS | Encounter Summary ---
Author Organization [facility] Address [address] [place] [address] Phone Care Team Providers Care Animal Nutrition Consultant Name Role Phone Alban Abrams MD Primary Care Provider [phone] Self-Referred, Patient Unavailable Unavailab Jair Rodriguez MD, PhD Unavailable [phone] Jair Gonzalez MD, PhD Unavailable [phone] Raymon Norman MD Unavailable [phone] Shiloh Beck MD Unavailable [phone] Encounter Details Date Type Department Care Team (Late st Contact Info) Description 11/11/2022 Procedure Pass [facility] [address] [place] [address] Social History Tobacco Use Types Packs/Day Years [...] Info) Description 10/12/2024 Procedure Pass [facility] Imaging Department, [facility], [place] [address] [facility], Floor L1 [place] [address] 10/12/2024 Procedure Pass [facility] Imaging Department, [facility], [place] [address] [facility], [facility] L1 [place] [address] 01/11/2025 6:45 AM EST Blood Draw [facility] Imaging Department, [facility], Imaging Vlmsc-bf-Jwff [address] [place] [address], [facility] L1 [place] [address] Jair Gonzalez MD, PhD [address] [place] [address] Samm@[email or web address] 01/11/2025 8:40 AM EST Appointment [facility] Imaging Department, [facility], [place] [address] [facility], [facility] L1 [place] [address] Jair Gonzalez MD, PhD [address] [place] [address] Samm@[email or web address] 01/11/2025 10:30 AM EST Office Visit [facility], [address], 10th [place] [address] Jair Gonzalez MD, PhD [address] [place] [address] [email or web address] documented as of this encounter Visit Diagnoses Not on filedocumented in this encounter Care Teams Animal Nutrition Consultant Relationship Specialty Start Date End Date Alban Abrams MD [address] [place] [address] [facility] [place] [address] PCP - General Internal Medicine 02/17/17 Self-Referred, Patient Referring Physician 02/17/17 Jair Gonzalez MD, PhD [address] [place] [address] [email or web address] Primary Oncologist Oncology 02/17/17 Jair Gonzalez MD, PhD [address] [place] [address] [email or web address] Primary Oncologist Oncology 02/17/17 Raymon Norman MD [address] [place] [address] [email or web address] Primary Oncologist Surgical Oncology 03/17/17 Shiloh Beck MD [address] [place] [address] [email or web address] 12/30/17 documented as of this encounter Additional Source Comments The information contained in this document represents components of the legal health record. It is not the complete legal health record.[facility]
--- OUTSIDE RECORDS SUMMARY | 2024-11-01 14:50 | XMS_ITS | Encounter Summary ---
Author Organization [facility] Address [address] [facility] [address] [place] [address] Phone Care Team Providers Care Thermal Cutter Hand Name Role Phone Alban Abrams MD Primary Care Provider [phone] Self-Referred, Patient Unavailable Unavailab Jair Rodriguez MD, PhD Unavailable [phone] Jair Gonzalez MD, PhD Unavailable [phone] Raymon Norman MD Unavailable [phone] Shiloh Beck MD Unavailable [phone] Encounter Details Date Type Department Care Team (Late st Contact Info) Description 03/11/2017 Procedure Pass [facility] OUTSIDE IMG [address] [place] [address] Social History Tobacco Use Types Packs/Day Years [...] 10/12/2024 Procedure Pass [facility], [facility] [place] [address] [facility], Floor L1 [place] [address] 10/12/2024 Procedure Pass [facility] Imaging Department, [facility] [place] [address] [facility], [facility] L1 [place] [address] 01/11/2025 6:45 AM EST Blood Draw [facility] Imaging Department, [facility], Imaging Afsor-ag-Vixu [address] [facility], Floor L1 [place] [address] Jair Gonzalez MD, PhD [address] [place] [address] [email or web address] 01/11/2025 8:40 AM EST Appointment [facility] Imaging Department, [facility] [place] [address] [facility], Floor [address]1 [place] [address] Jair Gonzalez MD, PhD [address] [place] [address] Samm@d [email or web address] 01/11/2025 10:30 AM EST Office Visit [facility], [address], 10th [place] [address] Jair Gonzalez MD, PhD [address] [place] [address] Samm@d [email or web address] documented as of this encounter Visit Diagnoses Not on filedocumented in this encounter Care Teams Thermal Cutter Hand Relationship Specialty Start Date End Date Alban Abrams MD [address] [place] [address] [place] [address] PCP - General Internal Medicine 02/17/17 Self-Referred, Patient Referring Physician 02/17/17 Jair Gonzalez MD, PhD [address] [place] [address] [email or web address] Primary Oncologist Oncology 02/17/17 Jair Gonzalez MD, PhD [address] [place] [address] [email or web address] Primary Oncologist Oncology 02/17/17 Raymon Norman MD [address] [place] [address] [email or web address] Primary Oncologist Surgical Oncology 03/17/17 Shiloh Beck MD [address] [place] [address] [email or web address] Hematology and Oncology 12/30/17 documented as of this encounter Additional Source Comments The information contained in this document represents components of the legal health record. It is not the complete legal health record.[facility]
--- OUTSIDE RECORDS SUMMARY | 2024-11-01 14:50 | XMS_ITS | Encounter Summary ---
Author Organization [facility] Address [address] [facility] [address] [place] [address] Phone Care Team Providers Care Investigative Research Specialist Name Role Phone Alban Abrams MD Primary Care Provider [phone] Self-Referred, Patient Unavailable Unavailab Jair Rodriguez MD, PhD Unavailable [phone] Jair Gonzalez MD, PhD Unavailable [phone] Raymon Norman MD Unavailable Shiloh Beck MD Unavailable [phone] Encounter Details Date Type Department Care Team (Late st Contact Info) Description 02/09/2023 Procedure Pass [facility] Periop [address] [place] [address] Social History Tobacco Use Types Packs/Day Years [...] Date of Assessment Author No Risk Indicated 02/09/2023 6:00 PM Ruth Cool RN * [place] Suicide Severity Rating Scale (Screener/Recent Self-Report) Question Answer Date of Assessment Author 1. Wish to be (Past 1 Month) No 02/09/2023 6:00 PM Ruth Cool RN 2. Non-Specific Active Suicidal Thoughts (Past 1 Month) No 02/09/2023 6:00 PM Ruth Cool RN 6. Suicidal Behavior (Lifetime) No 02/09/2023 6:00 PM Ruth Cool RN documented as of this encounter Plan of Treatment Upcoming Encounters Date Type Department Care Team (Late st Contact Info) Description 10/12/2024 Procedure Pass [facility] Imaging Department, [facility] [place] [place] [address] [facility], Floor [address]1 [place] [address] 10/12/2024 Procedure Pass [facility] Imaging Department, [facility] [place] [address] [facility], Floor [address]1 [place] [address] 01/11/2025 6:45 AM EST Blood Draw [facility] Imaging Department, [facility] [place], Imaging Hefqw-wl-Uetz [address] [facility], Floor [address]1 [place] [address] Jair Gonzalez MD, PhD 450 [place] [address] [email or web address] 01/11/2025 8:40 AM EST Appointment [facility] Imaging Department, [facility] [place] [address] [facility], Floor [address]1 [place] [address] Jair Gonzalez MD, PhD 450 [place] [address] Samm@d [email or web address] 01/11/2025 10:30 AM EST Office Visit [facility], [facility] [place] [address] [facility], 10th [place] [address] Jair Gonzalez MD, PhD [address] [place] [address] Samm@d [facility] documented as of this encounter Visit Diagnoses Not on filedocumented in this encounter Care Teams Investigative Research Specialist Relationship Specialty Start Date End Date Alban Abrams MD [address] [place] [address] [place] [address] PCP - General Internal Medicine 02/17/17 Self-Referred, Patient Referring Physician 02/17/17 Jair Gonzalez MD, PhD [address] [place] [phone] [email or web address] Primary Oncologist Oncology 02/17/17 Jair Gonzalez MD, PhD [address] [place] [phone] Samm@[email or web address] Primary Oncologist Oncology 02/17/17 Raymon Norman MD [address] [place] [address] [email or web address] Primary Oncologist Surgical Oncology 03/17/17 Shiloh Beck MD [address] [place] [address] [email or web address] On[facility] 12/30/17 documented as of this encounter Additional Source Comments The information contained in this document represents components of the legal health record. It is not the complete legal health record.[facility]
--- OUTSIDE RECORDS SUMMARY | 2024-11-01 14:50 | XMS_ITS | Encounter Summary ---
Author Organization [facility] Address [address] [place] [address] Phone Care Team Providers Care Ecommerce Marketing Specialist Name Role Phone Alabn Abrams MD Primary Care Provider [phone] Self-Referred, Patient Unavailable Unavailab Jair Rodriguez MD, PhD Unavailable [phone] Jair Gonzalez MD, PhD Unavailable [phone] Raymon Norman MD Unavailable Shiloh Beck MD Unavailable [phone] Encounter Details Date Type Department Care Team (Late st Contact Info) Description 07/15/2023 Procedure Pass [facility] [place] [address] [facility], Floor L1 [place] [address] Social History Tobacco Use Types Packs/Day Years [...] Info) Description 10/12/2024 Procedure Pass [facility] Imaging Department, [facility], [place] [address] [facility], Floor L1 [place] [address] 10/12/2024 Procedure Pass [facility] Imaging Department, [facility] [place] [address] [facility], Floor L1 [place] [address] 01/11/2025 6:45 AM EST Blood Draw [facility] Imaging Department, [facility], Imaging Vihlh-oh-Nzqn [address] [facility], Floor L1 [place] [address] Jair Gonzalez MD, PhD [address] [place] [phone] [email or web address] 01/11/2025 8:40 AM EST Appointment [facility] Imaging Department, [facility], [place] [address] [facility], Floor L1 [place] [address] Jair Gonzalez MD, PhD [address] [place] [address] [email or web address] 01/11/2025 10:30 AM EST Office Visit [facility], [facility] [address] [facility], 10th [place] [address] Jair Gonzalez MD, PhD 450 [place] [address] [email or web address] documented as of this encounter Visit Diagnoses Not on filedocumented in this encounter Care Teams Ecommerce Marketing Specialist Relationship Specialty Start Date End Date Alban Abrams MD [address] [place] [address] [address] PCP - General Internal Medicine 02/17/17 Self-Referred, Patient Referring Physician 02/17/17 Jair Gonzalez MD, PhD [address] [place] [phone] [email or web address] Primary Oncologist Oncology 02/17/17 Jair Gonzalez MD, PhD [address] [place] [phone] [email or web address] Primary Oncologist Oncology 02/17/17 Raymon Norman MD [address] [place] [address] [email or web address] Primary Oncologist Surgical Oncology 03/17/17 Shiloh Beck MD [address] [place] [address] [email or web address] 12/30/17 documented as of this encounter Additional Source Comments The information contained in this document represents components of the legal health record. It is not the complete legal health record.[facility]
--- OUTSIDE RECORDS SUMMARY | 2024-11-01 14:50 | XMS_ITS | Encounter Summary ---
Author Organization [facility] Address [address] [facility] [address] [place] [address] Phone Care Team Providers Care Insurance Coder Name Role Phone Alban Abrams MD Primary Care Provider [phone] Self-Referred, Patient Unavailable Unavailab Jair Rodriguez MD, PhD Unavailable [phone] Jair Gonzalez MD, PhD Unavailable [phone] Raymon Norman MD Unavailable [phone] Shiloh Beck MD Unavailable [phone] Encounter Details Date Type Department Care Team (Late st Contact Info) Description 08/11/2023 Procedure Pass [facility] [address] [place] [address] Social History Tobacco Use Types Packs/Day Years [...] Info) Description 10/12/2024 Procedure Pass [facility] Imaging Department, [facility] [place] [place] [address] [facility], Floor L1 [place] [address] 10/12/2024 Procedure Pass [facility] Imaging Department, [facility] [place] [place] [address] [facility], [facility] L1 [place] [address] 01/11/2025 6:45 AM EST Blood Draw [facility] Imaging Department, [facility] [place], Imaging Xpphn-wp-Scfs [address] [place] [address], Floor L1 [place] [address] Jair Gonzalez MD, PhD [address] [place] [address] Samm@[email or web address] 01/11/2025 8:40 AM EST Appointment [facility] Imaging Department, [facility] [place] [place] [address] [facility], [facility] L1 [place] [address] Jair Gonzalez MD, PhD [address] [place] [phone] Samm@[email or web address] 01/11/2025 10:30 AM EST Office Visit [facility], [address], 10th [place] [address] Jair Gonzalez MD, PhD [address] [place] [phone] Samm@d [facility] documented as of this encounter Visit Diagnoses Not on filedocumented in this encounter Care Teams Insurance Coder Relationship Specialty Start Date End Date Alban Abrams MD [address] [place] [address] [address] PCP - General Internal Medicine 02/17/17 Self-Referred, Patient Referring Physician 02/17/17 Jair Gonzalez MD, PhD 450 [place] [address] [email or web address] Primary Oncologist Oncology 02/17/17 Jair Gonzalez MD, PhD 450 [place] [address] [email or web address] Primary Oncologist Oncology 02/17/17 Raymon Norman MD [address] [place] [address] [email or web address] Primary Oncologist Surgical Oncology 03/17/17 Shiloh Beck MD [address] [place] [address] [email or web address] Hemat[facility] On[facility] 12/30/17 documented as of this encounter Additional Source Comments The information contained in this document represents components of the legal health record. It is not the complete legal health record.[facility]
--- OUTSIDE RECORDS SUMMARY | 2024-11-01 14:51 | XMS_ITS | Encounter Summary ---
Author Organization [facility] Address [address] [facility] [address] [place] [address] Phone Care Team Providers Care Managed Care Specialist Name Role Phone Alban Abrams MD Primary Care Provider [phone] Self-Referred, Patient Unavailable Unavailab Jair Rodriguez MD, PhD Unavailable [phone] Jair Gonzalez MD, PhD Unavailable [phone] Raymon Norman MD Unavailable [phone] Shiloh Beck MD Unavailable [phone] Encounter Details Date Type Department Care Team (Late st Contact Info) Description 04/15/2017 Transcribe Orders [facility] Echocardiography [address] [place] [address] Riki Lopez MD [address] [facility] 3rd [place] [address] [email or web address] Social History Tobacco Use Types Packs/Day Years [...] Info) Description 10/12/2024 Procedure Pass [facility] Imaging Department, [facility], [place] [address] [facility], Floor [address]1 [place] [address] 10/12/2024 Procedure Pass [facility] Imaging Department, [facility] [place] [address] [facility], Floor L1 [place] [address] 01/11/2025 6:45 AM EST Blood Draw [facility] Imaging Department, [facility], Imaging Xofua-vo-Snxm [address] [facility], Floor [address]1 [place] [address] Jair Gonzalez MD, PhD [address] [place] [phone] Samm@d [email or web address] 01/11/2025 8:40 AM EST Appointment [facility] Imaging Department, [facility], [place] [address] [facility], Floor [address]1 [place] [address] Jair Gonzalez MD, PhD [address] [place] [phone] Samm@d [email or web address] 01/11/2025 10:30 AM EST Office Visit [facility], [facility] [address] [facility], 10th [place] [address] Jair Gonzalez MD, PhD [address] [place] [phone] Samm@d [email or web address] documented as of this encounter Visit Diagnoses Not on filedocumented in this encounter Care Teams Managed Care Specialist Relationship Specialty Start Date End Date Alban Abrams MD [address] [place] [address] PCP - General Internal Medicine 02/17/17 Self-Referred, Patient Referring Physician 02/17/17 Jair Gonzalez MD, PhD 450 [place] [address] [email or web address] Primary Oncologist Oncology 02/17/17 Jair Gonzalez MD, PhD 450 [place] [address] Samm@[email or web address] Primary Oncologist Oncology 02/17/17 Raymon Norman MD [address] [place] [phone] [email or web address] Primary Oncologist Surgical Oncology 03/17/17 Shiloh Beck MD [address] [place] [address] [email or web address] [employer] Hematology and Oncology 12/30/17 documented as of this encounter Additional Source Comments The information contained in this document represents components of the legal health record. It is not the complete legal health record.[facility]
--- OUTSIDE RECORDS SUMMARY | 2024-11-01 14:51 | XMS_ITS | Encounter Summary ---
Author Organization [facility] Address [address] [facility] [address] [place] [address] Phone Care Team Providers Care Short Goods Drier Name Role Phone Alban Abrams MD Primary Care Provider [phone] Self-Referred, Patient Unavailable Unavailab Jair Rodriguez MD, PhD Unavailable [phone] Jair Gonzalez MD, PhD Unavailable [phone] Raymon Norman MD Unavailable [phone] Shiloh Beck MD Unavailable [phone] Encounter Details Date Type Department Care Team (Late Contact Info) Description 04/13/2017 Procedure Pass [facility] Endoscopy Department [address] [place] [address] Social History Tobacco Use Types Packs/Day Years [...] st Contact Info) Description 10/12/2024 Procedure Pass [facility] Imaging Department, [facility], [place] [address] [facility], Floor [address]1 [place] [address] 10/12/2024 Procedure Pass [facility] Imaging Department, [facility], [place] [address] [facility], Floor [address]1 [place] [address] 01/11/2025 6:45 AM EST Blood Draw [facility] Imaging Department, [facility], Imaging Bbmsr-rf-Zsnx [address] [facility], Floor [address]1 [place] [address] Jair Gonzalez MD, PhD [address] [place] [phone] Samm@d [facility] 01/11/2025 8:40 AM EST Appointment [facility] Imaging Department, [facility], [place] [address] [facility], Floor [address]1 [place] [address] Jair Gonzalez MD, PhD [address] [place] [phone] [email or web address] [email or web address] 01/11/2025 10:30 AM EST Office Visit [facility], [address], 10th [place] [address] Jair Gonzalez MD, PhD [address] [place] [phone] [email or web address] [email or web address] documented as of this encounter Visit Diagnoses Not on filedocumented in this encounter Care Teams Short Goods Drier Relationship Specialty Start Date End Date Alban Abrams MD [address] [place] [address] [place] [address] PCP - General Internal Medicine 02/17/17 Self-Referred, Patient Referring Physician 02/17/17 Jair Gonzalez MD, PhD 450 [place] [address] [email or web address] Primary Oncologist Oncology 02/17/17 Jair Gonzalez MD, PhD [address] [place] [address] [email or web address] Primary Oncologist Oncology 02/17/17 Raymon Norman MD [address] [place] [address] [email or web address] Primary Oncologist Surgical Oncology 03/17/17 Shiloh Beck MD [address] [place] [phone] [email or web address] H[facility]ology [facility] On[facility] 12/30/17 documented as of this encounter Additional Source Comments The information contained in this document represents components of the legal health record. It is not the complete legal health record.[facility]
--- OUTSIDE RECORDS SUMMARY | 2024-11-01 14:51 | XMS_ITS | Encounter Summary ---
Author Organization [facility] Address [address] [place] [address] Phone Care Team Providers Care Ply Splicer Name Role Phone Alban Abrams MD Primary Care Provider [phone] Self-Referred, Patient Unavailable Unavailab Jair Rodriguez MD, PhD Unavailable [phone] Jair Gonzalez MD, PhD Unavailable [phone] Raymon Norman MD Unavailable [phone] Shiloh Beck MD Unavailable [phone] Encounter Details Date Type Department Care Team (Late st Contact Info) Description 12/22/2022 Procedure Pass [facility] [address] [place] [address] Social History Tobacco Use Types Packs/Day Years [...] Info) Description 10/12/2024 Procedure Pass [facility] Imaging Department, [facility], [place] [address] [facility], Floor L1 [place] [address] 10/12/2024 Procedure Pass [facility] Imaging Department, [facility], [place] [address] [facility], [facility] L1 [place] [address] 01/11/2025 6:45 AM EST Blood Draw [facility] Imaging Department, [facility], Imaging Fwrlw-bx-Sxbu [address] [place] [address], [facility] [address]1 [place] [address] Jair Gonzalez MD, PhD [address] [place] [address] [email or web address] 01/11/2025 8:40 AM EST Appointment [facility] Imaging Department, [facility], [place] [address] [facility], [facility] [address]1 [place] [address] Jair Gonzalez MD, PhD [address] [place] [address] [email or web address] 01/11/2025 10:30 AM EST Office [facility], [address], 10th [place] [address] Jair Gonzalez MD, PhD [address] [place] [address] [email or web address]@d [email or web address] documented as of this encounter Visit Diagnoses Not on filedocumented in this encounter Care Teams Ply Splicer Relationship Specialty Start Date End Date Alban Abrams MD [address] [place] [address] [facility] [place] [address] PCP - General Internal Medicine 02/17/17 Self-Referred, Patient Referring Physician 02/17/17 Jair Gonzalez MD, PhD [address] [place] [address] [email or web address] Primary Oncologist Oncology 02/17/17 Jair Gonzalez MD, PhD [address] [place] [address] [email or web address] Primary Oncologist Oncology 02/17/17 Raymon Norman MD [address] [place] [address] [email or web address] Primary Oncologist Surgical Oncology 03/17/17 Shiloh Beck MD [address] [place] [address] [email or web address] [employer] Hematology and Oncology 12/30/17 documented as of this encounter Additional Source Comments The information contained in this document represents components of the legal health record. It is not the complete legal health record.[facility]
--- OUTSIDE RECORDS SUMMARY | 2024-11-01 14:51 | XMS_ITS | Encounter Summary ---
Author Organization [facility] Address [address] [facility] [address] [place] [address] Phone Care Team Providers Care Dough Braker Name Role Phone Alban Abrams MD Primary Care Provider [phone] Self-Referred, Patient Unavailable Unavailab Jair Rodriguez MD, PhD Unavailable Jair Gonzalez MD, PhD Unavailable [phone] Raymon Norman MD Unavailable [phone] Shiloh Beck MD Unavailable [phone] Encounter Details Date Type Department Care Team (Late st Contact Info) Description 03/31/2017 Prep for Surgery [facility] General & GI Surgery [address] [place] [address] ASB2-3 [place] [address] Mercy Lyles MD [address] [place] [address] Department of Anesthesiology-CWN L1 [place] [address] Social History Tobacco Use Types Packs/Day Years Used Date Smoking Tobacco: Former Cigarettes 3 10 1 980 - 1989 Smokeless Tobacco: Never Comments:25 years ago Alcohol Use Standard Drinks/Week Comments No 0 (1 standard drink = 0.6 oz pur e alcohol) 1 glass wine per month Sex and Gender Information Value Date Recorded Sex Assigned at Not on file Legal Sex Male 5:42 PM EST Gender Identity Not on file Sexual Orientation Not on file documented as of this encounter Plan of Treatment Upcoming Encounters Date Type Department Care Team (Late st Contact Info) Description 10/12/2024 Procedure Pass [facility] Imaging Department, [facility], [place] [address] [facility], Floor L1 [place] [address] 10/12/2024 Procedure Pass [facility] Imaging Department, [facility], [place] [address] [facility], Floor L1 [place] [address] 01/11/2025 6:45 AM EST Blood Draw [facility] Imaging Department, [facility], Imaging Cmcii-bo-Figq [address] [facility], Floor [address]1 [place] [address] Jair Gonzalez MD, PhD [address] [place] [address] [email or web address] 01/11/2025 8:40 AM EST Appointment [facility] Imaging Department, [facility], [place] [address] [facility], Floor L1 [place] [address] Jair Gonzalez MD, PhD [address] [place] [address] Samm@d [email or web address] 01/11/2025 10:30 AM EST Office Visit [facility], [address], 10th [place] [address] Jair Gonzalez MD, PhD [address] [place] [phone] Samm@d [email or web address] documented as of this encounter Visit Diagnoses Not on filedocumented in this encounter Care Teams Dough Braker Relationship Specialty Start Date End Date Alban Abrams MD [address] [place] [address] PCP - General Internal Medicine 02/17/17 Self-Referred, Patient Referring Physician 02/17/17 Jair Gonzalez MD, PhD 450 [place] [address] [email or web address] Primary Oncologist Oncology 02/17/17 Jair Gonzalez MD, PhD [address] [place] [address] Samm@[email or web address] Primary Oncologist Oncology 02/17/17 Raymon Norman MD [address] [place] [address] [email or web address] Primary Oncologist Surgical Oncology 03/17/17 Shiloh Beck MD [address] [place] [address] [email or web address] Hematology and Oncology 12/30/17 documented as of this encounter Additional Source Comments The information contained in this document represents components of the legal health record. It is not the complete legal health record.[facility]
--- OUTSIDE RECORDS SUMMARY | 2024-11-01 14:51 | XMS_ITS | Encounter Summary ---
Author Organization [facility] Address [address] [facility] [address] [place] [address] Phone Care Team Providers Care Digester Cook Name Role Phone Alban Abrams MD Primary Care Provider [phone] Self-Referred, Patient Unavailable Unavailab Jair Rodriguez MD, PhD Unavailable [phone] Jair Gonzalez MD, PhD Unavailable [phone] Raymon Norman MD Unavailable [phone] Shiloh Beck MD Unavailable [phone] Encounter Details Date Type Department Care Team (Late st Contact Info) Description 10/10/2020 Procedure Pass [facility] Imaging [facility], [facility] [place], [place] [address] [facility], Floor L1 [place] [address] Social History Tobacco Use Types Packs/Day Years [...] st Contact Info) Description 10/12/2024 Procedure Pass [facility] Imaging Department, [facility], [place] [address] [facility], Floor [address]1 [place] [address] 10/12/2024 Procedure Pass [facility] Imaging Department, [facility], [place] [address] [facility], Floor [address]1 [place] [address] 01/11/2025 6:45 AM EST Blood Draw [facility] Imaging Department, [facility], Imaging Xbslg-cz-Puqj [address] [facility], Floor [address]1 [place] [address] Jair Gonzalez MD, PhD [address] [place] [address] [email or web address] 01/11/2025 8:40 AM EST Appointment [facility] Imaging Department, [facility], [place] [address] [facility], Floor L1 [place] [address] Jair Gonzalez MD, PhD [address] [place] [address] Samm@d [email or web address] 01/11/2025 10:30 AM EST Office Visit [facility], [address], 10th [place] [address] Jair Gonzalez MD, PhD [address] [place] [address] [email or web address] [email or web address] documented as of this encounter Visit Diagnoses Not on filedocumented in this encounter Care Teams Digester Cook Relationship Specialty Start Date End Date Alban Abrams MD [address] [place] [address] [place] [address] PCP - General Internal Medicine 02/17/17 Self-Referred, Patient Referring Physician 02/17/17 Jair Gonzalez MD, PhD 450 [place] [address] Samm@[email or web address] Primary Oncologist Oncology 02/17/17 Jair Gonzalez MD, PhD 450 [place] [address] Samm@[email or web address] Primary Oncologist Oncology 02/17/17 Raymon Norman MD [address] [place] [address] [email or web address] u Primary Oncologist Surgical Oncology 03/17/17 Shiloh Beck MD [address] [place] [address] [email or web address] Hematology and Oncology 12/30/17 documented as of this encounter Additional Source Comments The information contained in this document represents components of the legal health record. It is not the complete legal health record.[facility]
--- OUTSIDE RECORDS SUMMARY | 2024-11-01 14:51 | XMS_ITS | Encounter Summary ---
Author Organization [facility] Address [address] [facility] [address] [place] [address] Phone Care Team Providers Care Right Of Way Cutter Name Role Phone Alban Abrams MD Primary Care Provider [phone] Self-Referred, Patient Unavailable Unavailab Jair Rodriguez MD, PhD Unavailable [phone] Jair Gonzalez MD, PhD Unavailable [phone] Raymon Norman MD Unavailable [phone] Shiloh Beck MD Unavailable [phone] Encounter Details Date Type Department Care Team (Late st Contact Info) Description 10/10/2020 Procedure Pass [facility] Imaging Department, [facility] [place] [address] [facility], Floor L1 [place] [address] Social History Tobacco Use Types Packs/Day Years [...] Info) Description 10/12/2024 Procedure Pass [facility] Imaging Department, [facility], [place] [address] [facility], Floor L1 [place] [address] 10/12/2024 Procedure Pass [facility] Imaging Department, [facility], [place] [address] [facility], Floor [address]1 [place] [address] 01/11/2025 6:45 AM EST Blood Draw [facility] Imaging Department, [facility], Imaging Dcrkj-ck-Mvkl [address] [facility], Floor [address]1 [place] [address] Jair Gonzalez MD, PhD [address] [place] [phone] Samm@[email or web address] 01/11/2025 8:40 AM EST Appointment [facility] Imaging Department, [facility], [place] [address] [facility], Floor [address]1 [place] [address] Jair Gonzalez MD, PhD [address] [place] [address] [email or web address] 01/11/2025 10:30 AM EST Office Visit [facility], [address], 10th [place] [address] Jair Gonzalez MD, PhD [address] [place] [address] [email or web address]@d [email or web address] documented as of this encounter Visit Diagnoses Not on filedocumented in this encounter Care Teams Right Of Way Cutter Relationship Specialty Start Date End Date Alban Abrams MD [address] [place] [address] [place] [address] PCP - General Internal Medicine 02/17/17 Self-Referred, Patient Referring Physician 02/17/17 Jair Gonzalez MD, PhD [address] [place] [address] [email or web address] Primary Oncologist Oncology 02/17/17 Jair Gonzalez MD, PhD [address] [place] [address] Samm@[email or web address] Primary Oncologist Oncology 02/17/17 Raymon Norman MD [address] [place] [address] [email or web address] Primary Oncologist Surgical Oncology 03/17/17 Shiloh Beck MD [address] [place] [address] [email or web address] Hematology and Oncology 12/30/17 documented as of this encounter Additional Source Comments The information contained in this document represents components of the legal health record. It is not the complete legal health record.[facility]
--- OUTSIDE RECORDS SUMMARY | 2024-11-01 14:51 | XMS_ITS | Encounter Summary ---
Author Organization [facility] Address [address] [facility] [address] [place] [address] Phone Care Team Providers Care Haulpak Driver Name Role Phone Alban Abrams MD Primary Care Provider [phone] Self-Referred, Patient Unavailable Unavailab Jair Rodriguez MD, PhD Unavailable [phone] Jair Gonzalez MD, PhD Unavailable [phone] Raymon Norman MD Unavailable Shiloh Beck MD Unavailable [phone] Encounter Details Date Type Department Care Team (Late st Contact Info) Description 08/31/2023 Procedure Pass [facility] Periop [address] [place] [address] Social History Tobacco Use Types Packs/Day Years [...] Contact Info) Description 10/12/2024 Procedure Pass [facility] Imaging Department, [facility], [place] [address] [facility], [facility] L1 [place] [address] 10/12/2024 Procedure Pass [facility] Imaging Department, [facility], [place] [address] [facility], [facility] L1 [place] [address] 01/11/2025 6:45 AM EST Blood Draw [facility] Imaging Department, [facility], Imaging Cuxhc-xa-Eszi [address] [place] [address], Floor L1 [place] [address] Jair Gonzalez MD, PhD [address] [place] [address] Samm@d [facility] 01/11/2025 8:40 AM EST Appointment [facility] Imaging Department, [facility], [place] [address] [facility], Floor [address]1 [place] [address] Jair Gonzalez MD, PhD [address] [place] [phone] Samm@d [facility] 01/11/2025 10:30 AM EST Office Visit [facility], [address], 10th [place] [address] Jair Gonzalez MD, PhD [address] [place] [address] Samm@d [facility] documented as of this encounter Visit Diagnoses Not on filedocumented in this encounter Care Teams Haulpak Driver Relationship Specialty Start Date End Date Alban Abrams MD [address] [place] [address] [address] PCP - General Internal Medicine 02/17/17 Self-Referred, Patient Referring Physician 02/17/17 Jair Gonzalez MD, PhD 450 [place] [address] [email or web address] Primary Oncologist Oncology 02/17/17 Jair Gonzalez MD, PhD 450 [place] [address] [email or web address] Primary Oncologist Oncology 02/17/17 Raymon Norman MD [address] [place] [address] [email or web address] Primary Oncologist Surgical Oncology 03/17/17 Shiloh Beck MD [address] [place] [address] [email or web address] [employer] Hematology and Oncology 12/30/17 documented as of this encounter Additional Source Comments The information contained in this document represents components of the legal health record. It is not the complete legal health record.[facility]
--- OUTSIDE RECORDS SUMMARY | 2024-11-01 14:52 | XMS_ITS | Encounter Summary ---
Author Organization [facility] Address [address] [facility] [address] [place] [address] Phone Care Team Providers Care Training Consultant Name Role Phone Alban Abrams MD Primary Care Provider [phone] Self-Referred, Patient Unavailable Unavailab Jair Rodriguez MD, PhD Unavailable [phone] Jair Gonzalez MD, PhD Unavailable [phone] Raymon Norman MD Unavailable [phone] Shiloh Beck MD Unavailable [phone] Encounter Details Date Type Department Care Team (Late Contact Info) Description 03/13/2021 Procedure Pass [facility] Periop [address] [place] [address] Social History Tobacco Use Types Packs/Day Years [...] Pass [facility] Imaging Department, [facility], [place] [address] [facility], Floor L1 [place] [address] 10/12/2024 Procedure Pass [facility] Imaging Department, [facility], [place] [address] [facility], Floor L1 [place] [address] 01/11/2025 6:45 AM EST Blood Draw [facility] Imaging Department, [facility], Imaging Lsxdj-cf-Sqqa [address] [facility], Floor [address]1 [place] [address] Jair Gonzalez MD, PhD [address] [place] [address] Samm@d [facility] 01/11/2025 8:40 AM EST Appointment [facility] Imaging Department, [facility], [place] [address] [facility], Floor [address]1 [place] [address] Jair Gonzalez MD, PhD [address] [place] [address] [email or web address] [email or web address] 01/11/2025 10:30 AM EST Office Visit [facility], [address], 10th [place] [address] Jair Gonzalez MD, PhD [address] [place] [phone] [email or web address] [email or web address] documented as of this encounter Visit Diagnoses Not on filedocumented in this encounter Care Teams Training Consultant Relationship Specialty Start Date End Date Alban Abrams MD [address] [place] [address] [place] [address] PCP - General Internal Medicine 02/17/17 Self-Referred, Patient Referring Physician 02/17/17 Jair Gonzalez MD, PhD 450 [place] [address] [email or web address] Primary Oncologist Oncology 02/17/17 Jair Gonzalez MD, PhD [address] [place] [address] Samm@[facility] Primary Oncologist Oncology 02/17/17 Raymon Norman MD [address] [place] [address] [email or web address] Primary Oncologist Surgical Oncology 03/17/17 Shiloh Beck MD [address] [place] [address] [email or web address] Hematology and Oncology 12/30/17 documented as of this encounter Additional Source Comments The information contained in this document represents components of the legal health record. It is not the complete legal health record.[facility]
--- OUTSIDE RECORDS SUMMARY | 2024-11-01 14:52 | XMS_ITS | Encounter Summary ---
Author Organization [facility] Address [address] [facility] [address] [place] [address] Phone Care Team Providers Care Chief Writer Name Role Phone Alban Abrams MD Primary Care Provider [phone] Self-Referred, Patient Unavailable Unavailab Jair Rodriguez MD, PhD Unavailable [phone] Jair Gonzalez MD, PhD Unavailable [phone] Raymon Norman MD Unavailable [phone] Shiloh Beck MD Unavailable [phone] Encounter Details Date Type Department Care Team (Late st Contact Info) Description 01/16/2021 Procedure Pass [facility] Imaging Department, [facility] [place] [place] [address] [facility], Floor L1 [place] [address] Social History Tobacco Use Types Packs/Day Years [...] Info) Description 10/12/2024 Procedure Pass [facility] Imaging Department, [facility], [place] [address] [facility], Floor L1 [place] [address] 10/12/2024 Procedure Pass [facility] Imaging Department, [facility], [place] [address] [facility], Floor L1 [place] [address] 01/11/2025 6:45 AM EST Blood Draw [facility] Imaging Department, [facility], Imaging Jigrh-hy-Ujra [address] [facility], Floor [address]1 [place] [address] Jair Gonzalez MD, PhD [address] [place] [phone] Samm@[email or web address] 01/11/2025 8:40 AM EST Appointment [facility] Imaging Department, [facility], [place] [address] [facility], Floor [address]1 [place] [address] Jair Gonzalez MD, PhD [address] [place] [phone] [email or web address] [email or web address] 01/11/2025 10:30 AM EST Office Visit [facility], [address] [place] [address], 10th [place] [address] Jair Gonzalez MD, PhD [address] [place] [address] Samm@d [email or web address] documented as of this encounter Visit Diagnoses Not on filedocumented in this encounter Care Teams Chief Writer Relationship Specialty Start Date End Date Alban Abrams MD [address] [place] [address] [place] [address] PCP - General Internal Medicine 02/17/17 Self-Referred, Patient Referring Physician 02/17/17 Jair Gonzalez MD, PhD 450 [place] [address] [email or web address] Primary Oncologist Oncology 02/17/17 Jair Gonzalez MD, PhD 450 [place] [address] [email or web address] Primary Oncologist Oncology 02/17/17 Raymon Norman MD [address] [place] [address] [email or web address] Primary Oncologist Surgical Oncology 03/17/17 Shiloh Beck MD [address] [place] [address] [email or web address] Hematology and Oncology 12/30/17 documented as of this encounter Additional Source Comments The information contained in this document represents components of the legal health record. It is not the complete legal health record.[facility]
--- OUTSIDE RECORDS SUMMARY | 2024-11-01 14:52 | XMS_ITS | Encounter Summary ---
Author Organization [facility] Address [address] [place] [address] Phone Care Team Providers Care Foundry Worker General Name Role Phone Alban Abrams MD Primary Care Provider [phone] Self-Referred, Patient Unavailable Unavailab Jair Rodriguez MD, PhD Unavailable [phone] Jair Gonzalez MD, PhD Unavailable [phone] Raymon Norman MD Unavailable [phone] Shiloh Beck MD Unavailable [phone] Encounter Details Date Type Department Care Team (Late Contact Info) Description 02/07/2021 Procedure Pass [facility] [address] [place] [address] Social History Tobacco Use Types Packs/Day Years [...] (Late Contact Info) Description 10/12/2024 Procedure Pass [facility] Imaging [facility], [facility], [place] [address] [facility], Floor L1 [place] [address] 10/12/2024 Procedure Pass [facility] Imaging Department, [facility] [place] [address] [facility], Floor [address]1 [place] [address] 01/11/2025 6:45 AM EST Blood Draw [facility] Imaging Department, [facility], Imaging Ovwyo-cq-Ibhd [address] [facility], Floor [address]1 [place] [address] Jair Gonzalez MD, PhD [address] [place] [address] [email or web address] 01/11/2025 8:40 AM EST Appointment [facility] Imaging Department, [facility], [place] [address] [facility], Floor [address]1 [place] [address] Jair Gonzalez MD, PhD [address] [place] [address] Samm@d [email or web address] 01/11/2025 10:30 AM EST Office Visit [facility], [address], 10th [place] [address] Jair Gonzalez MD, PhD [address] [place] [address] Samm@d [email or web address] documented as of this encounter Visit Diagnoses Not on filedocumented in this encounter Care Teams Foundry Worker General Relationship Specialty Start Date End Date Alban Abrams MD [address] [place] [address] [place] [address] PCP - General Internal Medicine 02/17/17 Self-Referred, Patient Referring Physician 02/17/17 Jair Gonzalez MD, PhD [address] [place] [address] Samm@[email or web address] Primary Oncologist Oncology 02/17/17 Jair Gonzalez MD, PhD [address] [place] [address] Samm@[email or web address] Primary Oncologist Oncology 02/17/17 Raymon Norman MD [address] [place] [address] [email or web address] u Primary Oncologist Surgical Oncology 03/17/17 Shiloh Beck MD [address] [place] [address] [email or web address] Hematology and Oncology 12/30/17 documented as of this encounter Additional Source Comments The information contained in this document represents components of the legal health record. It is not the complete legal health record.[facility]
--- OUTSIDE RECORDS SUMMARY | 2024-11-01 14:52 | XMS_ITS | Encounter Summary ---
Author Organization [facility] Address [address] [facility] [address] [facility] [address] [place] [address] Phone Care Team Providers Care Therapist Asst Name Role Phone Alban Abrams MD Primary Care Provider [phone] Self-Referred, Patient Unavailable Unavailab Jair Rodriguez MD, PhD Unavailable [phone] Jair Gonzalez MD, PhD Unavailable [phone] Raymon Norman MD Unavailable [phone] Shiloh Beck MD Unavailable [phone] Encounter Details Date Type Department Care Team (Late Contact Info) Description 10/08/2017 Procedure Pass [facility] Imaging, Carpenter [address] [place] [address] Social History Tobacco Use Types Packs/Day Years [...] [facility] Imaging Department, [facility], [place] [address] [facility], Floor [address]1 [place] [address] 10/12/2024 Procedure Pass [facility] Imaging Department, [facility] [place] [address] [facility], Floor [address]1 [place] [address] 01/11/2025 6:45 AM EST Blood Draw [facility] Imaging Department, [facility], Imaging Eymax-gj-Rlpj [address] [facility], Floor [address]1 [place] [address] Jair Goznalez MD, PhD [address] [place] [address] Samm@[email or web address] 01/11/2025 8:40 AM EST Appointment [facility] Imaging Department, [facility], [place] [address] [facility], Floor [address]1 [place] [address] Jair Gonzalez MD, PhD [address] [place] [address] Samm@d [email or web address] 01/11/2025 10:30 AM EST Office Visit [facility], [address], 10th [place] [address] Jair Gonzalez MD, PhD [address] [place] [address] Samm@[email or web address] documented as of this encounter Visit Diagnoses Not on filedocumented in this encounter Care Teams Therapist Asst Relationship Specialty Start Date End Date Alban Abrams MD [address] [place] [address] [place] [address] PCP - General Internal Medicine 02/17/17 Self-Referred, Patient Referring Physician 02/17/17 Jair Gonzalez MD, PhD [address] [place] [address] Samm@[email or web address] Primary Oncologist Oncology 02/17/17 Jair Gonzalez MD, PhD [address] [place] [address] Samm@[email or web address] Primary Oncologist Oncology 02/17/17 Raymon Norman MD [address] [place] [address] [email or web address] Primary Oncologist Surgical Oncology 03/17/17 Shiloh Beck MD [address] [place] [address] [email or web address] Hematology and Oncology 12/30/17 documented as of this encounter Additional Source Comments The information contained in this document represents components of the legal health record. It is not the complete legal health record.[facility]
--- OUTSIDE RECORDS SUMMARY | 2024-11-01 14:52 | XMS_ITS | Encounter Summary ---
Author Organization [facility] Address [address] [place] [address] Phone Care Team Providers Care Head Usher Name Role Phone Alban Abrams MD Primary Care Provider [phone] Self-Referred, Patient Unavailable Unavailab Jair Rodriguez MD, PhD Unavailable [phone] Jair Gonzalez MD, PhD Unavailable [phone] Raymon Norman MD Unavailable [phone] Shiloh Beck MD Unavailable [phone] Encounter Details Date Type Department Care Team (Late st Contact Info) Description 03/18/2023 Procedure Pass [facility] Contracts Administrator [place] [address] [place] [address] Social History Tobacco Use Types Packs/Day Years [...] Info) Description 10/12/2024 Procedure Pass [facility] Imaging Department, [facility] [place] [address] [facility], Floor [address] [place] [address] 10/12/2024 Procedure Pass [facility] Imaging Department, [facility] [place] [address] [facility], [facility] L1 [place] [address] 01/11/2025 6:45 AM EST Blood Draw [facility] Imaging Department, [facility], Imaging Ggdin-sq-Fdby [address] [place] [address], Floor L1 [place] [address] Jair Gonzalez MD, PhD [address] [place] [address] Samm@[email or web address] 01/11/2025 8:40 AM EST Appointment [facility] Imaging Department, [facility] [place] [address] [facility], Floor [address] [place] [address] Jair Gonzalez MD, PhD [address] [place] [address] Samm@[email or web address] 01/11/2025 10:30 AM EST Office Visit [facility], [address], 10th [place] [address] Jair Gonzalez MD, PhD [address] [place] [address] Samm@[email or web address] documented as of this encounter Visit Diagnoses Not on filedocumented in this encounter Care Teams Head Usher Relationship Specialty Start Date End Date Alban Abrams MD [address] [place] [address] PCP - General Internal Medicine 02/17/17 Self-Referred, Patient Referring Physician 02/17/17 Jair Gonzalez MD, PhD [address] [place] [address] Samm@[email or web address] Primary Oncologist Oncology 02/17/17 Jair Gonzalez MD, PhD [address] [place] [address] Samm@[email or web address] Primary Oncologist Oncology 02/17/17 Raymon Norman MD [address] [place] [address] [email or web address] u Primary Oncologist Surgical Oncology 03/17/17 Shiloh Beck MD [address] [place] [address] [email or web address] Hematology and Oncology 12/30/17 documented as of this encounter Additional Source Comments The information contained in this document represents components of the legal health record. It is not the complete legal health record.[facility]
--- OUTSIDE RECORDS SUMMARY | 2024-11-01 14:52 | XMS_ITS | Encounter Summary ---
Author Organization [facility] Address [address] [place] [address] Phone Care Team Providers Care Order Processing Clerk Name Role Phone Alban Abrams MD Primary Care Provider [phone] Self-Referred, Patient Unavailable Unavailab Jair Rodriguez MD, PhD Unavailable [phone] Jair Gonzalez MD, PhD Unavailable [phone] Raymon Norman MD Unavailable [phone] Shiloh Beck MD Unavailable [phone] Encounter Details Date Type Department Care Team (Late st Contact Info) Description 11/13/2022 Procedure Pass [facility], [facility] [place] [address] [facility], Floor [address]1 [place] [address] Social History Tobacco Use Types Packs/Day Years [...] 10/12/2024 Procedure Pass [facility] Imaging Department, [facility], [place] [address] [facility], Floor L1 [place] [address] 10/12/2024 Procedure Pass [facility] Imaging Department, [facility] [address] [facility], Floor [address]1 [place] [address] 01/11/2025 6:45 AM EST Blood Draw [facility] Imaging Department, [facility], Imaging Xqwip-bj-Ghvc [address] [facility], Floor [address]1 [place] [address] Jair Gonzalez MD, PhD [address] [place] [phone] Samm@[email or web address] 01/11/2025 8:40 AM EST Appointment [facility] Imaging Department, [facility], [place] [address] [facility], Floor [address]1 [place] [address] Jair Gonzalez MD, PhD [address] [place] [phone] Samm@[email or web address] 01/11/2025 10:30 AM EST Office Visit [facility], [facility] [address] [facility], 10th [place] [address] Jair Gonzalez MD, PhD [address] [place] [address] Samm@[email or web address] documented as of this encounter Visit Diagnoses Not on filedocumented in this encounter Care Teams Order Processing Clerk Relationship Specialty Start Date End Date Alban Abrams MD [address] [place] [address] [address] PCP - General Internal Medicine 02/17/17 Self-Referred, Patient Referring Physician 02/17/17 Jair Gonzalez MD, PhD [address] [place] [address] Samm@[email or web address] Primary Oncologist Oncology 02/17/17 Jair Gonzalez MD, PhD [address] [place] [phone] Samm@[email or web address] Primary Oncologist Oncology 02/17/17 Raymon Norman MD [address] [place] [address] [email or web address] Primary Oncologist Surgical Oncology 03/17/17 Shiloh Beck MD [address] [place] [address] [email or web address] Hematology and Oncology 12/30/17 documented as of this encounter Additional Source Comments The information contained in this document represents components of the legal health record. It is not the complete legal health record.[facility]
--- OUTSIDE RECORDS SUMMARY | 2024-11-01 14:52 | XMS_ITS | Encounter Summary ---
Author Organization [facility] Address [address] [employer] [address] [facility] [address] [place] [address] Phone Care Team Providers Care Precision Aircraft Systems Assembler Name Role Phone Alban Abrams MD Primary Care Provider [phone] Self-Referred, Patient Unavailable Unavailab Jair Rodriguez MD, PhD Unavailable [phone] Jair Gonzalez MD, PhD Unavailable [phone] Raymon Norman MD Unavailable Shiloh Beck MD Unavailable [phone] Encounter Details Date Type Department Care Team (Late st Contact Info) Description 06/10/2017 Procedure Pass [facility] Imaging [facility], [facility] [place], MRI [address] [facility], Floor L1 [place] [address] Social History Tobacco Use Types Packs/Day Years [...] Pass [facility] Imaging Department, [facility] [place] [address] [facility], Floor L1 [place] [address] 10/12/2024 Procedure Pass [facility] Imaging Department, [facility] [place] [address] [facility], Floor L1 [place] [address] 01/11/2025 6:45 AM EST Blood Draw [facility] Imaging Department, [facility], Imaging [employer] [address] [facility], Floor L1 [place] [address] Jair Gonzalez MD, PhD [address] [place] [address] Samm@d [email or web address] 01/11/2025 8:40 AM EST Appointment [facility] Imaging Department, [facility] [place] [address] [facility], Floor [address]1 [place] [address] Jair Gonzalez MD, PhD [address] [place] [phone] Samm@d [email or web address] 01/11/2025 10:30 AM EST Office Visit [facility], [address], 10th [place] [address] Jair Gonzalez MD, PhD [address] [place] [address] Samm@d [email or web address] documented as of this encounter Visit Diagnoses Not on filedocumented in this encounter Care Teams [employer] Assembler Relationship Specialty Start Date End Date Alban Abrams MD [address] [place] [address] [place] [address] PCP - General Internal Medicine 02/17/17 Self-Referred, Patient Referring Physician 02/17/17 Jair Gonzalez MD, PhD [address] [place] [address] Samm@[email or web address] Primary Oncologist Oncology 02/17/17 Jair Gonzalez MD, PhD [address] [place] [address] Samm@[email or web address] Primary Oncologist Oncology 02/17/17 Raymon Norman MD [address] [place] [address] [email or web address] Primary Oncologist Surgical Oncology 03/17/17 Shiloh Beck MD [address] [place] [address] [email or web address] Hematology and Oncology 12/30/17 documented as of this encounter Additional Source Comments The information contained in this document represents components of the legal health record. It is not the complete legal health record.[facility]
--- OUTSIDE RECORDS SUMMARY | 2024-11-01 14:52 | XMS_ITS | Encounter Summary ---
Author Organization [facility] Address [address] [facility] [address] [place] [address] Phone Care Team Providers Care Family Independence Case Manager Name Role Phone Alban Abrams MD Primary Care Provider [phone] Self-Referred, Patient Unavailable Unavailab Jair Rodriguez MD, PhD Unavailable [phone] Jair Gonzalez MD, PhD Unavailable [phone] Raymon Norman MD Unavailable [phone] Shiloh Beck MD Unavailable [phone] Encounter Details Date Type Department Care Team (Late Contact Info) Description 05/25/2017 Procedure Pass [facility] Imaging, Carpenter [address] [place] [address] Social History Tobacco Use Types Packs/Day Years [...] 10/12/2024 Procedure Pass [facility] Imaging Department, [facility], [place] [address] [facility], Floor L1 [place] [address] 10/12/2024 Procedure Pass [facility] Imaging Department, [facility], [place] [address] [facility], Floor [address]1 [place] [address] 01/11/2025 6:45 AM EST Blood Draw [facility] Imaging Department, [facility], Imaging Btdsc-bd-Zduc [address] [facility], Floor [address]1 [place] [address] Jair Gonzalez MD, PhD [address] [place] [phone] Samm@[email or web address] 01/11/2025 8:40 AM EST Appointment [facility] Imaging Department, [facility] [place] [address] [facility], Floor [address]1 [place] [address] Jair Gonzalez MD, PhD [address] [place] [phone] Samm@d [email or web address] 01/11/2025 10:30 AM EST Office Visit [facility], [address], 10th [place] [address] Jair Gonzalez MD, PhD [address] [place] [phone] Samm@d [email or web address] documented as of this encounter Visit Diagnoses Not on filedocumented in this encounter Care Teams Family Independence Case Manager Relationship Specialty Start Date End Date Alban Abrams MD [address] [place] [address] [place] [address] PCP - General Internal Medicine 02/17/17 Self-Referred, Patient Referring Physician 02/17/17 Jair Gonzalez MD, PhD [address] [place] [address] Samm@[email or web address] Primary Oncologist Oncology 02/17/17 Jair Gonzalez MD, PhD [address] [place] [address] [email or web address] Primary Oncologist Oncology 02/17/17 Raymon Norman MD [address] [place] [address] [email or web address] Primary Oncologist Surgical Oncology 03/17/17 Shiloh Beck MD [address] [place] [address] [email or web address] Hematology and Oncology 12/30/17 documented as of this encounter Additional Source Comments The information contained in this document represents components of the legal health record. It is not the complete legal health record.[facility]
--- OUTSIDE RECORDS SUMMARY | 2024-11-01 14:52 | XMS_ITS | Encounter Summary ---
Author Organization [facility] Address [address] [employer] [facility] [address] [place] [address] Phone Care Team Providers Care Phosphatic Fertilizer Supervisor Name Role Phone Alban Abrams MD Primary Care Provider [phone] Self-Referred, Patient Unavailable Unavailab Jair Rodriguez MD, PhD Unavailable [phone] Jair Gonzalez MD, PhD Unavailable [phone] Raymon Norman MD Unavailable [phone] Shiloh Beck MD Unavailable [phone] Encounter Details Date Type Department Care Team (Late st Contact Info) Description 01/16/2021 Procedure Pass [facility] Imaging Department, [facility] [place], [place] [address] [facility], Floor L1 [place] [address] Social History Tobacco Use Types Packs/Day Years [...] [facility] Imaging [facility], [facility], [place] [address] [facility], Floor L1 [place] [address] 10/12/2024 Procedure Pass [facility] Imaging Department, [facility] [place] [address] [facility], Floor L1 [place] [address] 01/11/2025 6:45 AM EST Blood Draw [facility] Imaging Department, [facility], Imaging Aupeb-nz-Oigm [address] [facility], Floor L1 [place] [address] Jair Gonzalez MD, PhD [address] [place] [phone] Samm@[email or web address] 01/11/2025 8:40 AM EST Appointment [facility] Imaging Department, [facility] [place] [address] [facility], Floor [address]1 [place] [address] Jair Gonzalez MD, PhD [address] [place] [phone] Samm@d [email or web address] 01/11/2025 10:30 AM EST Office Visit [facility], [address], 10th [place] [address] Jair Gonzalez MD, PhD [address] [place] [phone] Samm@d [facility] documented as of this encounter Visit Diagnoses Not on filedocumented in this encounter Care Teams Phosphatic Fertilizer Supervisor Relationship Specialty Start Date End Date Alban Abrams MD [address] [place] [address] [place] [address] PCP - General Internal Medicine 02/17/17 Self-Referred, Patient Referring Physician 02/17/17 Jair Gonzalez MD, PhD [address] [place] [address] Samm@[email or web address] Primary Oncologist Oncology 02/17/17 Jair Gonzalez MD, PhD [address] [place] [address] Samm@[email or web address] Primary Oncologist Oncology 02/17/17 Raymon Norman MD [address] [place] [address] [email or web address] u Primary Oncologist Surgical Oncology 03/17/17 Shiloh Beck MD [address] [place] [phone] [email or web address] Hematology and Oncology 12/30/17 documented as of this encounter Additional Source Comments The information contained in this document represents components of the legal health record. It is not the complete legal health record.[facility]
--- OUTSIDE RECORDS SUMMARY | 2024-11-01 14:52 | XMS_ITS | Encounter Summary ---
Author Organization [facility] Address [address] [place] [address] Phone Care Team Providers Care General Office Assistant Name Role Phone Alban Abrams MD Primary Care Provider [phone] Self-Referred, Patient Unavailable Unavailab Jair Rodriguez MD, PhD Unavailable [phone] Jair Gonzalez MD, PhD Unavailable [phone] Raymon Norman MD Unavailable Shiloh Beck MD Unavailable [phone] Encounter Details Date Type Department Care Team (Late st Contact Info) Description 11/13/2022 Procedure Pass [facility], [facility] [place], [place] [address] [facility], [address] [place] [address] Social History Tobacco Use Types Packs/Day Years [...] Contact Info) Description 10/12/2024 Procedure Pass [facility] Imaging Department, [facility], [place] [address] [facility], [address] [place] [address] 10/12/2024 Procedure Pass [facility] Imaging Department, [facility], [place] [address] [facility], [address] [place] [address] 01/11/2025 6:45 AM EST Blood Draw [facility] Imaging Department, [facility], Imaging Fqopx-ur-Qzdm [address] [facility], [address] [place] [address] Jair Gonzalez MD, PhD [address] [place] [phone] [email or web address] [email or web address] 01/11/2025 8:40 AM EST Appointment [facility] Imaging Department, [facility], [place] [address] [facility], [address] [place] [address] Jair Gonzalez MD, PhD [address] [place] [phone] [email or web address] [email or web address] 01/11/2025 10:30 AM EST Office Visit [facility], [facility] [address] [facility], 10th [place] [address] Jair Gonzalez MD, PhD [address] [place] [address] [email or web address] documented as of this encounter Visit Diagnoses Not on filedocumented in this encounter Care Teams General Office Assistant Relationship Specialty Start Date End Date Alban Abrams MD [address] [place] [address] [address] PCP - General Internal Medicine 02/17/17 Self-Referred, Patient Referring Physician 02/17/17 Jair Gonzalez MD, PhD [address] [place] [phone] [email or web address] Primary Oncologist Oncology 02/17/17 Jair Gonzalez MD, PhD [address] [place] [phone] [email or web address] Primary Oncologist Oncology 02/17/17 Raymon Norman MD [address] [place] [phone] [email or web address] Primary Oncologist Surgical Oncology 03/17/17 Shiloh Beck MD [address] [place] [phone] [email or web address] [facility] [email or web address] 12/30/17 documented as of this encounter Additional Source Comments The information contained in this document represents components of the legal health record. It is not the complete legal health record.[facility]
--- OUTSIDE RECORDS SUMMARY | 2024-11-01 14:52 | XMS_ITS | Encounter Summary ---
Author Organization [facility] Address [address] [facility] [facility] [place] [address] Phone Care Team Providers Care Import Customer Service Manager Name Role Phone Alban Abrams MD Primary Care Provider [phone] Self-Referred, Patient Unavailable Unavailab Jair Rodriguez MD, PhD Unavailable [phone] Jair Gonzalez MD, PhD Unavailable [phone] Raymon Norman MD Unavailable [phone] Shiloh Beck MD Unavailable [phone] Encounter Details Date Type Department Care Team (Late st Contact Info) Description 06/12/2021 Procedure Pass [facility] [place] [facility] [place] [address] [facility] 3rd [place] [address] Social History Tobacco Use Types Packs/Day Years [...] st Contact Info) Description 10/12/2024 Procedure Pass [facility] Imaging Department, [facility], [place] [address] [facility], [address] [place] [address] 10/12/2024 Procedure Pass [facility] Imaging Department, [facility], [place] [address] [facility], [address] [place] [address] 01/11/2025 6:45 AM EST Blood Draw [facility] Imaging Department, [facility], Imaging Aewve-xq-Kch[facility] [address] [facility], [address] [place] [address] Jair Gonzalez MD, PhD [address] [place] [phone] [email or web address] 01/11/2025 8:40 AM EST Appointment [facility] Imaging Department, [facility], [place] [address] [facility], [address] [place] [address] Jair Gonzalez MD, PhD [address] [place] [phone] [email or web address] 01/11/2025 10:30 AM EST Office Visit [facility], [address] [place] [address] Jair Gonzalez MD, PhD [address] [place] [phone] [email or web address] documented as of this encounter Visit Diagnoses Not on filedocumented in this encounter Care Teams Import Customer Service Manager Relationship Specialty Start Date End Date Alban Abrams MD [address] [place] [address] [place] [id number] PCP - General Internal Medicine 02/17/17 Self-Referred, Patient Referring Physician 02/17/17 Jair Gonzalez MD, PhD [address] [place] [address] [email or web address] Primary Oncologist Oncology 02/17/17 Jair Gonzalez MD, PhD [address] [place] [address] [email or web address] Primary Oncologist Oncology 02/17/17 Raymon Norman MD [address] [place] [phone] [email or web address] Primary Oncologist Surgical Oncology 03/17/17 Shiloh Beck MD [address] [place] [phone] [email or web address] Hematology and Oncology 12/30/17 documented as of this encounter Additional Source Comments The information contained in this document represents components of the legal health record. It is not the complete legal health record.[facility]
[2024-11-01 15:01] LABS: Alanine Aminotransferase 35 U/L (0-40); Albumin Level 2.7 g/dL (3.5-5.0); Alkaline Phosphatase 83 U/L (39-117); Anion Gap 10 (12-20); Aspartate Amino Transferase 26 U/L (5-37); Blood Urea Nitrogen 24 mg/dL (9-16); Calcium 8.1 mg/dL (8.4-10.2); Carbon Dioxide 26 mmol/L (22-29); Chloride 103 mmol/L (96-108); Creatinine Clr Calc Pharmacy 81.5; Estimated Glomerular Filt Rate > 60; Lipase 35 U/L (8-78); Potassium 4.2 mmol/L (3.3-5.1); Sodium 135 mmol/L (135-145); Total Protein 4.8 g/dL (6.5-8.0)
[2024-11-01 15:47] LABS: Appearance Urine Cloudy; Glucose Urine UA Negative (Negative); PH 5.0 (5.0-9.0); Specific Gravity - Urine 1.020 (1.005-1.025); UMIC TRIGGER UACC YES
[2024-11-01 15:52] LABS: Hematocrit 27.5 % (42.0-52.0); Hemoglobin 9.5 g/dl (14.0-18.0); Imm Gran Abs Auto 0.01 X10*3/uL (0.00-0.03); Imm Gran Pct Auto 0.5 % (0.0-0.4); Lymphocytes Absolute Auto 0.6 X10*3/uL (1.2-4.9); Mean Corpuscular HGB Conc 34.5 g/dl (31.0-36.0); Mean Corpuscular Hemoglobin 33.1 pg (27.0-33.0); Mean Corpuscular Volume 95.8 fL (80.0-98.0); NRBC Abs Auto 0.020 X10*3/uL (0.0-0.012); Red Blood Count 2.87 X10*6/uL (4.60-5.80); SCAN SMEAR FLAG 1
[2024-11-01 15:53] LABS: NRBC Pct Auto 1.1 /100WBC (0.0-0.2); Platelet Count 72 X10*3/uL (160-400); White Blood Count 1.9 X10*3/uL (4.8-10.8)
[2024-11-01 16:27] LABS: MANUAL DIFF FLAG NO
[2024-11-01 17:12] VITALS: BP 116/58; PULSE 78; RESP 18; TEMP 37; O2SAT 92
--- NOTE | 2024-11-01 21:07 | MHC.CM.ED ---
Pt is A&Ox3. Has colon CA with mets to lung and liver. Cared for by Dr. Beck and [facility]. Pt with weakness and falls. Unable to get up. Lives with . States he is active with [facility]. PT recommends STR. Pt declines. Wants services in his home. Will use hospital bed on first floor of home. Has commode, walker and Wheelchair. Lives with his . Son, George is HCP. He lives in [place]. Pt also tells CM that he is waiting for MOW to begin. Will placed referral to [facility] and to [facility]. CM spoke with , Nara.([phone]). She verifies the above information. She feels her is safe at home. She will pick him up at discharge. She tells CM that he has 3 months of chemo. CM encouraged to have patient return if she feels he is too weak or that he needs STR. Will contact [facility] about them being active with this patient. F2F completed if needed. Will upload if requested. Pt discharged to home.
== END 2024-11-01 17:12 | disposition home or self-care (01) ==
PROVIDERS: Emergency Provider Emergency Medicine; PCP Internal Medicine
DX: S99.912A Unspecified injury of left ankle, initial encounter (principal); R94.31 Abnormal electrocardiogram [ECG] [EKG]; I45.10 Unspecified right bundle-branch block; M25.572 Pain in left ankle and joints of left foot; J90 Pleural effusion, not elsewhere classified; R26.81 Unsteadiness on feet; E66.9 Obesity, unspecified; W06.XXXA Fall from bed, initial encounter; Z91.81 History of falling; Y93.9 Activity, unspecified; Y92.9 Unspecified place or not applicable; Y99.8 Other external cause status; Z79.899 Other long term (current) drug therapy; Z87.891 Personal history of nicotine dependence
CPT/HCPCS: 36415; 71045; 73610; 80053; 81001; 83690; 85025; 93005; 97162; 99285

== ENCOUNTER → 2024-11-01 13:29 | Outpatient (BNV) | payer MEDICARE, BC, SELFPAY | PROVIDERS: Emergency Provider Emergency Medicine; PCP Internal Medicine; Visit Provider Internal Medicine Cardiovascular Disease | DX: I45.4 Nonspecific intraventricular block (principal) | CPT/HCPCS: 93010 ==

== ENCOUNTER → 2024-11-01 13:30 | Outpatient (BNV) | payer MEDICARE, BC, SELFPAY | PROVIDERS: Emergency Provider Emergency Medicine; PCP Internal Medicine; Visit Provider Radiology Diagnostic Radiology | DX: J90 Pleural effusion, not elsewhere classified (principal); R91.8 Other nonspecific abnormal finding of lung field; M77.32 Calcaneal spur, left foot | CPT/HCPCS: 71045; 73610 ==

== ENCOUNTER 2024-11-03 10:10 | Inpatient (IN) | payer BC, MEDICARE, SELFPAY ==
[2024-11-03] VITALS (20 sets, daily range): BP systolic 107–171; BP diastolic 50–97; PULSE 76–131; RESP 16–29; TEMP 36.7–39.6; O2SAT 87–97; BMI 39.5
--- NOTE | 2024-11-03 | ECG_ITS ---
Test Reason : TACHYCARDIA, SEPSIS Blood Pressure : */* mmHG Vent. Rate : 115 BPM Atrial Rate : 115 BPM P-R Int : 150 ms QRS Dur : 128 ms QT Int : 358 ms P-R-T Axes : 34 -21 68 degrees QTcB Int : 495 ms Sinus tachycardia with Premature atrial complexes Non-specific intra-ventricular conduction block T wave abnormality, consider anterior ischemia Abnormal ECG When compared with ECG of 01-Nov-2024 14:31, Premature atrial complexes are now Present Vent. rate has increased by 44 bpm T wave inversion more evident in Anterior leads Referred By: Gagandeep Murphy Electronically Signed By: Noe Sams
--- NOTE | ~2024-11-03 | CT_ITS ---
EXAMINATION: CT ANGIOGRAM CHEST CLINICAL INFORMATION: Possible pulmonary emboli. COMPARISON: June 26, 2024. TECHNIQUE: Multiple axial images were obtained through the chest after the administration of 65 mL of Omnipaque 350 intravenous contrast. Extensive vascular post-processing including two-dimensional and three-dimensional reformatted images were created and reviewed on an independent workstation. SmartPrep technique. This CT examination was performed using dose optimization techniques as appropriate, variously including the following: *Automated exposure control *Adjustment of mA and/or kV according to patient size (this includes techniques or standardized protocols for targeted exams where dose is matched to indication/reason for exam; i.e. extremities or head) *Use of iterative reconstruction technique DLP: 1114 mGy centimeter. FINDINGS: The main pulmonary artery or its main branches and its main subsegmental pulmonary branches are patent without intraluminal filling defects No aneurysm or dissection, thoracic aorta. Calcified plaques in the thoracic aorta wall and its main branches and the coronary arteries. There is a patchy confluent pulmonary groundglass extending from the perihilar regions to almost to the periphery of the lungs, right greater than left. Right-sided the pleural effusion, moderate volume. Left-sided pleural effusion, small volume. No pneumothorax. No pneumomediastinum. No hemothorax. No pericardial effusion. No mediastinal lymphadenopathy. Central venous line ends at the right atrium junction. The intra-abdominal organs demonstrated a prominent caudate lobe of the liver and a nodular surface. Punctate calcification left hepatic lobe. Multilevel thoracic spondylosis with the ossification of the anterior longitudinal ligament and kyphotic deformity apex at T3-4. CT/CT angio chest PE protocol IMPRESSION: No acute pulmonary artery emboli. No aneurysm or dissection, thoracic aorta. Concerning pulmonary edema and bilateral pleural effusions, moderate volume on the right and small volume on the left. Probable hepatocellular dysfunction/cirrhosis. Ankylosis spondylitis, thoracic spine. Fleischner guidelines were followed. Electronically signed by: Carmelo Read MD 11/06/2024 12:01 PM EDT
--- NOTE | ~2024-11-03 | US_ITS ---
CLINICAL HISTORY: pain swelling; eval for clot Bilateral lower extremity venous duplex ultrasound. Study was performed using color and spectral waveform analysis. Comparison: 04/18/2024 Findings: Visualized deep veins are fully compressible with normal flow and augmentation. No popliteal cysts. No significant adenopathy. Impression: Bilateral lower extremity venous duplex ultrasound negative for DVT This document has been electronically signed by: Bharathi Allen MD on 11/03/2024 21:03:10
--- NOTE | ~2024-11-03 | XR_ITS ---
EXAMINATION: XR CHEST 1 VIEW HISTORY: sob COMPARISON: Comparison is made with the prior examination dated 11/03/2024. FINDINGS: Two AP portable views of the chest performed at 8:31 AM are submitted. A right-sided central venous catheter is unchanged in position. There is new opacity throughout the right lung which may represent pneumonia or pulmonary edema. There is persistent opacification of the left lung base. There is no pneumothorax. The heart is normal in size. There is degenerative disc disease of the spine. XR/XR chest 1V IMPRESSION: 1. Diffuse opacity in the right lung which may represent pneumonia or pulmonary edema. 2. Persistent opacification of the left lung base which may represent atelectasis or pneumonia. Electronically signed by: Herrera Molina MD 11/06/2024 08:58 AM EDT
--- NOTE | ~2024-11-03 | XR_ITS ---
EXAMINATION: XR CHEST 1 VIEW HISTORY: cough, fever, ,lung CA COMPARISON: Comparison is made with the prior examination dated 11/01/2024. FINDINGS: Two AP portable views of the chest performed at 11:11 AM are submitted. The patient is rotated to the left. A right-sided port is unchanged in position. Again seen is partial opacification of the left lung base which may represent atelectasis or pneumonia. There may be a trace left pleural effusion. There is no pneumothorax or pulmonary vascular congestion. The heart is normal in size. There is degenerative disc disease of the spine. XR/XR chest 1V IMPRESSION: Left basilar atelectasis versus pneumonia. Probable tiny left pleural effusion. Electronically signed by: Herrera Molina MD 11/03/2024 11:26 AM EDT
--- NOTE | ~2024-11-03 | XR_ITS ---
EXAMINATION: XR FOOT, LEFT CLINICAL INFORMATION: pain, swelling COMPARISON: 09/27/2024 FINDINGS: There appear to be subacute healing involving the first, second, third, and fourth proximal metatarsals at the metaphyseal levels. The Lisfranc interval appears preserved. Pes planus. Hammertoe deformities. Mild arthritis throughout the intertarsal and tarsometatarsal joints. Arthritis noted in the subtalar joints. There is a moderate-sized plantar calcaneal spur. There is diffuse soft tissue swelling most prominent dorsally. XR/XR foot LT min 3V IMPRESSION: 1. There are subacute healing fractures involving the proximal metaphyses of the second, third, and fourth metatarsals, and possibly the first. Lisfranc interval appears preserved, although findings again appear to represent a Lisfranc fracture pattern. 2. Persistent but improving dorsal soft tissue swelling. 3. Pes planus deformity. Electronically signed by: Carlos Kelsey MD 11/03/2024 12:59 PM EDT
--- NOTE | ~2024-11-03 | XR_ITS ---
EXAMINATION: XR CHEST 2 VIEWS HISTORY: pneumonia COMPARISON: Comparison is made with the prior examination dated 11/07/2024. FINDINGS: AP and lateral views of the chest are submitted. A right-sided port is unchanged in position. Again seen is diffuse opacity throughout the right lung, compatible with pneumonia. There is persistent opacification of the left lung base may represent atelectasis or pneumonia. A small left pleural effusion is not excluded. There is no pneumothorax. The heart appears enlarged. There is degenerative disc disease of the spine. XR/XR chest 2V IMPRESSION: 1. Persistent opacity throughout the right lung consistent with pneumonia. 2. Left basilar atelectasis versus pneumonia. Electronically signed by: Herrera Molina MD 11/08/2024 07:57 AM EDT
--- NOTE | ~2024-11-03 | CT_ITS ---
EXAMINATION: CT HEAD WITHOUT CONTRAST CLINICAL INFORMATION: encephalopathy COMPARISON: November 03, 2024 TECHNIQUE: Contiguous axial imaging was performed from the skull base to vertex without intravenous administration of contrast. This CT examination was performed using dose optimization techniques as appropriate, variously including the following: *Automated exposure control *Adjustment of mA and/or kV according to patient size (this includes techniques or standardized protocols for targeted exams where dose is matched to indication/reason for exam; i.e. extremities or head) *Use of iterative reconstruction technique DLP: 1195 mGy-cm FINDINGS: Bilateral, multifocal patchy and confluent deep periventricular white matter hypodensity involving centrum semiovale and asher radiata. Multifocal old lacunar infarct, distal ganglia and extracapsular and asher radiata white matter. No acute intracranial hemorrhage, mass effect, midline shift, hydrocephalus or herniation. Prominence of the extra-axial CSF spaces cerebral sulci and ventricles. Sellar/suprasellar region demonstrated no gross masses. Craniocervical junction demonstrates normal position of the cerebellar tonsils. No air-fluid levels in the paranasal sinuses. Small retention cysts versus polyp, right maxillary sinus. Tympanic cavities and mastoid cells are aerated. Calcified plaques in the cavernous supraclinoid segments both ICAs in the V3 segments of the vertebral arteries. CT/CT head/brain wo IV con IMPRESSION: No acute intracranial hemorrhage. Extensive white matter disease. Superimposed encephalopathy cannot be excluded. Electronically signed by: Carmelo Read MD 11/07/2024 11:22 AM EDT
--- NOTE | ~2024-11-03 | CT_ITS ---
EXAMINATION: CT HEAD WITHOUT IV CONTRAST HISTORY: altered mental status, hx of metastatic CA. TECHNIQUE: Unenhanced helical CT of the head was performed per standard departmental protocol. Coronal and sagittal reformats of the head were also evaluated. One or more of the following techniques was used for dose reduction: Automated exposure control, adjustment of the mA and/or kV according to patient size, use of iterative reconstruction technique. DLP: 885 mGy-cm COMPARISON: Comparison is made with the prior examination dated 06/26/2024. FINDINGS: BRAIN: There is diffuse prominence of the ventricular system and cortical sulci, consistent with atrophy. Periventricular and subcortical white matter hypodensities are noted which are nonspecific, but often seen in the setting of small vessel ischemic disease. There is no mass effect or midline shift. No intra- or extra-axial fluid collections are identified. SINUSES: The visualized paranasal sinuses are clear. The mastoid air cells and middle ear cavities are well pneumatized. ORBITS: The visualized orbits are unremarkable. BONES/SOFT TISSUES: The extracranial soft tissues are unremarkable. The calvarium is intact. No suspicious lytic or sclerotic lesions. CT/CT head/brain wo IV con IMPRESSION: No acute intracranial abnormality. Electronically signed by: Herrera Molina MD 11/03/2024 03:15 PM EDT
--- NOTE | ~2024-11-03 | XR_ITS ---
EXAMINATION: XR CHEST CLINICAL INFORMATION: sob COMPARISON: November 06, 2024 and November 03, 2024. TECHNIQUE: Frontal view of the chest was obtained. FINDINGS: Opacity left lower hemithorax. Poor inspiration. Prominence of the interstitial markings asymmetric to the right lung. No gross pneumothorax. Right-sided Port-A-Cath remains at the SVC/right atrium. XR/XR chest 1V IMPRESSION: Worsening asymmetric right-sided pulmonary edema versus pneumonitis versus multifocal pneumonia. Persistent left-sided pleural effusion and compression atelectasis versus airspace disease. Electronically signed by: Carmelo Read MD 11/07/2024 12:08 PM EDT
--- NOTE | ~2024-11-03 | XR_ITS ---
EXAMINATION: XR CHEST 1 VIEW HISTORY: pneumonia COMPARISON: Comparison is made with the prior examination dated 11/08/2024. FINDINGS: A single AP portable view of the chest performed at 7:13 AM is submitted. A right-sided port is unchanged in position. There has been improved aeration of the right lung since the prior study. Residual interstitial and groundglass opacities remain. There is persistent airspace opacity at the left lung base, consistent with atelectasis or pneumonia. There maybe a small left pleural effusion. No pneumothorax. The heart is normal in size. There is degenerative disc disease of the spine. XR/XR chest 1V IMPRESSION: 1. Improved aeration of the right lung. 2. Persistent airspace opacity at the left lung base, consistent with atelectasis or pneumonia. Electronically signed by: Herrera Molina MD 11/10/2024 07:39 AM EDT
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
--- NOTE | 2024-11-03 11:17 | PC.NURSE ---
IV abx admin delayed- pt has port that was accessed by primary RN, however blood return was not adequate for lab specimens. MD Murphy to bedside to place US IV.
[2024-11-03 11:37] LABS: VBG HCO3 26 mmol/L (22-26); VBG O2 % Saturation 42.0 %
[2024-11-03 11:37] LABS: Hematocrit 29.3 % (42.0-52.0); Hemoglobin 10.0 g/dl (14.0-18.0); Imm Gran Abs Auto 0.01 X10*3/uL (0.00-0.03); Imm Gran Pct Auto 1.0 % (0.0-0.4); Lymphocytes Absolute Auto 0.3 X10*3/uL (1.2-4.9); MANUAL DIFF FLAG SCAN; Mean Corpuscular Hemoglobin 32.1 pg (27.0-33.0); Mean Corpuscular Volume 93.9 fL (80.0-98.0); NRBC Abs Auto 0.000 X10*3/uL (0.0-0.012); NRBC Pct Auto 0.0 /100WBC (0.0-0.2); Red Blood Count 3.12 X10*6/uL (4.60-5.80); SCAN SMEAR FLAG 1
[2024-11-03 11:38] LABS: Venous Blood Gas Refer to POC result
[2024-11-03 11:38] LABS: Platelet Count 85 X10*3/uL (160-400); White Blood Count 1.0 X10*3/uL (4.8-10.8)
[2024-11-03 11:40] LABS: Mean Corpuscular HGB Conc 34.1 g/dl (31.0-36.0)
[2024-11-03 11:42] LABS: INTERNATIONAL NORM RATIO 1.3 (0.9-1.1); Prothrombin Time 14.7 SEC (10.9-12.4)
--- OUTSIDE RECORDS SUMMARY | 2024-11-03 11:48 | XMS_ITS | Clinical Summary ---
Author Organization [facility] Address [address] [facility] [address] [place] [address] Phone Care Team Providers Care Batch Records Clerk Name Role Phone Bertha Barry MD Primary Care Provider [phone] Self-Referred, Patient Unavailable Unavailab Jair Rodriguez MD, PhD Unavailable [phone] Jair Gonzalez MD, PhD Unavailable [phone] Raymon Norman MD Unavailable [phone] Shiloh Beck MD Unavailable [phone] Allergies Active Allergy Reactions Criticality Noted [...] mouth daily as needed for allergies. Active lq-ccc-gqodq-K1-ly copen-lutein (CENTRUM SILVER ULTRA MEN'S) [id number] mcg Tab Take by mouth. 02/03/20 Active [...] EDT Office Visit [facility], [address], [address] [place] [address] Jair Gonzalez MD, PhD Malignant neoplasm metastatic to lung, unspecified laterality (Primary Dx) 10/11/2024 4:30 PM EDT Infusion Infusion Therapy Services [facility] at [address] [address] Raymon Norman MD Wagner, Andrea Tomasetti, RN 10/11/2024 2:29 PM EDT - 10/11/2024 11:59 PM EDT Hospital Encounter [place], [place] [address] [address] Jair Gonzalez MD, PhD Discharge Disposition: Home or Self Care 10/10/2024 Telephone [facility], [facility] at [address] [address] Amber Jamison, LUIS MIGUEL Care Coordination 10/09/2024 Procedure Pass [address] 3rd [place] [address] 10/09/2024 Procedure Pass [facility] [place] [place] [address] [facility] 3rd [place] [address] 10/09/2024 Orders Only [facility], [facility] [place] [address] [facility], 10th [place] [address] Jair Gonzalez MD, PhD Malignant neoplasm of [...] Contact Info) Description 10/12/2024 Procedure Pass [facility] Imaging Department, [facility], [place] [address] [facility], Floor [address]1 [place] [address] 10/12/2024 Procedure Pass [facility] Imaging Department, [facility], [place] [address] [facility], Floor [address]1 [place] [address] 01/11/2025 6:45 AM EST Blood Draw [facility] Imaging Department, [facility], Imaging Kodrt-vm-Miop [address] [facility], Floor [address] [place] [address] Jair Gonzalez MD, PhD 450 [place] [address] Samm@[email or web address] 01/11/2025 8:40 AM EST Appointment [facility] Imaging Department, [facility], [place] [address] [facility], Floor [address] [place] [address] Jair Gonzalez MD, PhD 450 [place] [address] Samm@[email or web address] 01/11/2025 10:30 AM EST Office Visit [facility], [facility] [address] [facility], 10th [place] [address] Jair Gonzalez MD, PhD [address] [place] [address] [email or web address] Health Maintenance Due Date Last Done Comments [...] this topic Medical Devices Implanted Type Area Electrical Sign Wirer Helper Device Identifier Shelf Expiration Date Model / Serial / Lot Port Implantable 9.5fr Infusion Dual Lumen Catheter [employer] - [id number] Implanted:Qty: 1 on 06/09/2017 by Ernie Viramontes MD at [facility] STANDARD Right: Chest Wall [employer] [id number] 01/28/2019 [id number] / / [id number] Description:RT IJ Marker Description:liver marker Procedures Procedure [...] clinician's provided indication for this examination in [facility]: *Colon cancer, restaging TECHNIQUE: [...] EDT) SODIUM 139 136 - 145 mmol/L [facility]# [id number] POTASSIUM 4.2 3.4 - 5.1 mmol/L [facility]# [id number] CHLORIDE 103 98 - 107 mmol/L [facility]# [id number] CO2 20(L) 22 - 31 mmol/L [facility]# [id number] BUN 27(H) 6 - 23 mg/dL [facility]# [id number] CREATININE 1.12 0.50 - 1.20 mg/dL [facility]# [id number] GLUCOSE 180(H) 70 - 100 mg/dL [facility]# [id number] ALBUMIN 3.4(L) 3.5 - 5.2 g/dL [facility]# [id number] TOTAL PROTEIN 6.0(L) 6.4 - 8.3 g/dL [facility]# [id number] CALCIUM 9.0 8.8 - 10.7 mg/dL [facility]# [id number] ALKALINE PHOSPHATASE 110 40 - 129 U/L [facility]# [id number] TOTAL BILIRUBIN 0.7 0.2 - 1.2 mg/dL [facility]# [id number] AST 33 <41 U/L [facility]# [id number] ALT 42(H) <42 U/L [facility]# [id number] GLOBULIN 2.6 2.3 - 4.2 g/dL [facility]# [id number] EGFR 69 >59 mL/min/1.7 3m2 [facility]# [id number] Comment:Estimated glomerular filtration rate calculated using the CKD-EPI refit equation. ANION GAP 16 7 - 17 mmol/L [facility]# [id number] Blood 10/11/2024 2:25 PM EDT 10/11/2024 2:26 PM EDT us Jair Gonzalez MD, PhD LAB BLOOD ORDERABLES Fi nal Result [facility]# [id number] [address] [place] [address], [facility] * (ABNORMAL) CBC and differential (10/11/2024 2:25 PM EDT) [facility] WBC 3.19(L) 4.00 - 10.00 K/uL [facility]# [id number] RBC 3.19(L) 4.50 - 6.40 M/uL [facility]# [id number] HGB 10.4(L) 13.5 - 18.0 g/dL [facility]# [id number] HCT 31.1(L) 40.0 - 54.0 % [facility]# [id number] PLT 143(L) 150 - 450 K/uL [facility]# [id number] MCV 97.5 80.0 - 100.0 fL [facility]# [id number] MCH 32.6(H) 27.0 - 32.0 pg [facility]# [id number] MCHC 33.4 32.0 - 36.0 g/dL [facility]# [id number] RDW 15.4(H) 11.5 - 14.5 % [facility]# [id number] MPV 9.9 8.4 - 12.0 fL [facility]# [id number] NRBC 0.00 0.00 /100 WBCs [facility]# [id number] ABSOLUTE NRBC 0.00 0 K/uL [facility]# [id number] DIFF METHOD Auto [facility]# [id number] NEUTS 86.3(H) 48.0 - 76.0 % [facility]# [id number] LYMPHS 9.7(L) 18.0 - 41.0 % [facility]# [id number] MONOS 3.4(L) 4.0 - 11.0 % [facility]# [id number] EOS 0.0 0.0 - 5.0 % [facility]# [id number] BASOS 0.0 0.00 - 1.50 % [facility]# [id number] % IMMATURE GRANS 0.6 0.00 - 1.00 % [facility]# [id number] ABSOLUTE NEUTS 2.75 1.92 - 7.60 K/uL [facility]# [id number] ABSOLUTE LYMPHS 0.31(L) 0.72 - 4.10 K/uL [facility]# [id number] ABSOLUTE MONOS 0.11(L) 0.16 - 1.10 K/uL [facility]# [id number] ABSOLUTE EOS 0.00 0.00 - 0.50 K/uL [facility]# [id number] ABSOLUTE BASOS 0.00 0.00 - 0.15 K/uL [facility]# [id number] ABS IMMATURE GRANS 0.02 0.00 - 0.10 K/uL [facility]# [id number] Blood 10/11/2024 2:25 PM EDT 10/11/2024 2:26 PM EDT us Jair Gonzalez MD, PhD LAB BLOOD ORDERABLES Fi nal Result [facility]# [id number] [address] [place] [address], [facility] * Magnesium (10/11/2024 2:25 PM EDT) MAGNESIUM 2.1 1.7 - 2.6 mg/dL [facility]# [id number] Blood 10/11/2024 2:25 PM EDT 10/11/2024 2:26 PM EDT Jair Gonzalez MD, PhD LAB BLOOD ORDERABLES Fi nal Result Performing Organization Address [facility] de Phone Number [facility]# [id number] [address] [place] [address] * (ABNORMAL) Carcinoembryonic antigen (CEA) (10/11/2024 2:25 PM EDT) CEA 6.4(H) 0 - 3.7 ng/mL [facility]# [id number] Comment: CEA REFERENCE RANGE: NON-SMOKERS: < 3.8 ng/mL SMOKERS: < 5.0 ng/mL Blood 10/11/2024 2:25 PM EDT 10/11/2024 2:26 PM EDT Jair Gonzalez MD, PhD LAB BLOOD ORDERABLES Fi nal Result Performing Organization Address [facility] Co de Phone Number [facility]# [id number] [address] [place] [address] * ENDOSCOPY, COLON (01/10/2019 12:57 PM EST) 01/10/2019 12:5 7 PM EST Narrative Transcriptions Riki Lopez MD - 01/10/2019 12:57 PM EST [facility] Gastroenterology Patient Name: Jeffery Hernandez Procedure Date: [...] Lopez MD - 06/07/2018 3:39 PM EDT [facility] Gastroenterology Patient Name: Jeffery Hernandez Procedure Date: [...] Maintenance Insurance MEDICARE PART A & B [facility] PPO MEDICARE PART A & B [facility] OUT OF STATE PPO MEDICARE PART A & B [facility] OUT [facility] MEDICARE [facility] A & B MEDICARE PART A & B MEDICARE PART A & B [employer] OUT OF STATE PPO MEDICARE PART A & B [facility] PPO MEDICARE PART A & B MEDICARE PART A & B PPO Advance Directives For more information, please contact: [phone] (9AM - 5PM Jes/[facility], Wednesday-Wednesday) Documents on File Type Date Recorded Patient Aerial Photograph Interpreter Expl anation Healthcare Proxy 01/25/2024 * Full [...] Code Status Confirmed With: Patient Care Teams Batch Records Clerk Relationship Specialty Start Date End Date Bertha Barry MD [address] [place] [address] [place] [address] PCP - General Internal Medicine 02/17/17 Self-Referred, Patient Referring Physician 02/17/17 Jair Gonzalez MD, PhD [address] [place] [phone] [email or web address] Primary Oncologist Oncology 02/17/17 Jair Gonzalez MD, PhD [address] [place] [phone] [email or web address] Primary Oncologist Oncology 02/17/17 Raymon Norman MD [address] [place] [address] [email or web address] Primary Oncologist Surgical Oncology 03/17/17 Shiloh Beck MD [address] [place] [address] [email or web address] 12/30/17 Additional Source Comments The information contained in this document represents components of the legal health record. It is not the complete legal health record.[facility]
--- OUTSIDE RECORDS SUMMARY | 2024-11-03 11:48 | XMS_ITS | Encounter Summary ---
Author Organization [facility] Address [address] [place] [address] Phone Care Team Providers Care Last Code Striper Name Role Phone Alban Abrams MD Primary Care Provider [phone] Self-Referred, Patient Unavailable Unavailab Jair Rodriguez MD, PhD Unavailable [phone] Jair Gonzalez MD, PhD Unavailable [phone] Raymon Norman MD Unavailable Shiloh Beck MD Unavailable [phone] Encounter Details Date Type Department Care Team (Late st Contact Info) Description 07/15/2023 Procedure Pass [facility], [facility] [place], [place] [address] [facility], Floor [address]1 [place] [address] Social History Tobacco Use Types Packs/Day Years [...] st Contact Info) Description 10/12/2024 Procedure Pass [facility] Imaging Department, [facility], [place] [address] [facility], Floor [address]1 [place] [address] 10/12/2024 Procedure Pass [facility] Imaging Department, [facility], [place] [address] [facility], Floor [address]1 [place] [address] 01/11/2025 6:45 AM EST Blood Draw [facility] Imaging Department, [facility], Imaging Sqkpk-vn-Rkpv [address] [facility], Floor [address] [place] [address] Jair Gonzalez MD, PhD [address] [place] [phone] [email or web address] 01/11/2025 8:40 AM EST Appointment [facility] Imaging Department, [facility], [place] [address] [facility], [address] [place] [address] Jair Gonzalez MD, PhD [address] [place] [phone] [email or web address] 01/11/2025 10:30 AM EST Office Visit [facility], [facility] [address] [facility], 10th [place] [address] Jair Gonzalez MD, PhD 450 [place] [address] [email or web address] documented as of this encounter Visit Diagnoses Not on filedocumented in this encounter Care Teams Last Code Striper Relationship Specialty Start Date End Date Alban Abrams MD [address] [place] [address] [address] PCP - General Internal Medicine 02/17/17 Self-Referred, Patient Referring Physician 02/17/17 Jair Gonzalez MD, PhD [address] [place] [phone] [email or web address] Primary Oncologist Oncology 02/17/17 Jair Gonzalez MD, PhD [address] [place] [phone] [email or web address] Primary Oncologist Oncology 02/17/17 Raymon Norman MD [address] [place] [address] [email or web address] Primary Oncologist Surgical Oncology 03/17/17 Shiloh Beck MD [address] [place] [phone] [email or web address] 12/30/17 documented as of this encounter Additional Source Comments The information contained in this document represents components of the legal health record. It is not the complete legal health record.[facility]
--- OUTSIDE RECORDS SUMMARY | 2024-11-03 11:49 | XMS_ITS | Encounter Summary ---
Author Organization [facility] Address [address] [employer] [facility] [address] [place] [address] Phone Care Team Providers Care Transfer Controller Name Role Phone Alban Abrams MD Primary Care Provider [phone] Self-Referred, Patient Unavailable Unavailab Jair Rodriguez MD, PhD Unavailable [phone] Jair Gonzalez MD, PhD Unavailable [phone] Raymon Norman MD Unavailable [phone] Shiloh Beck MD Unavailable [phone] Encounter Details Date Type Department Care Team (Late st Contact Info) Description 04/02/2022 Procedure Pass [facility] Imaging [facility], [facility] [place] [address] [facility], Floor [address]1 [place] [address] Social History Tobacco Use Types Packs/Day Years [...] Pass [facility] Imaging Department, [facility], [place] [address] [facility], Floor [address] [place] [address] 10/12/2024 Procedure Pass [facility] Imaging Department, [facility], [place] [address] [facility], Floor [address]1 [place] [address] 01/11/2025 6:45 AM EST Blood Draw [facility] Imaging Department, [facility], Imaging Ancek-cm-Utas [address] [facility], Floor [address] [place] [address] Jair Gonzalez MD, PhD [address] [place] [phone] [email or web address] 01/11/2025 8:40 AM EST Appointment [facility] Imaging Department, [facility], [place] [address] [facility], Floor [address] [place] [address] Jair Gonzalez MD, PhD [address] [place] [phone] [email or web address] 01/11/2025 10:30 AM EST Office Visit [facility], [address], 10th [place] [address] Jair Gonzalez MD, PhD [address] [place] [phone] [email or web address] documented as of this encounter Visit Diagnoses Not on filedocumented in this encounter Care Teams Transfer Controller Relationship Specialty Start Date End Date Alban Abrams MD [address] [place] [address] [place] [address] PCP - General Internal Medicine 02/17/17 Self-Referred, Patient Referring Physician 02/17/17 Jair Gonzalez MD, PhD 450 [place] [address] [email or web address] Primary Oncologist Oncology 02/17/17 Jair Gonzalez MD, PhD 450 [place] [address] [email or web address] Primary Oncologist Oncology 02/17/17 Raymon Norman MD [address] [place] [address] [email or web address] Primary Oncologist Surgical Oncology 03/17/17 Shiloh Beck MD [address] [place] [address] [email or web address] [facility] 12/30/17 documented as of this encounter Additional Source Comments The information contained in this document represents components of the legal health record. It is not the complete legal health record.[facility]
--- OUTSIDE RECORDS SUMMARY | 2024-11-03 11:49 | XMS_ITS | Encounter Summary ---
Author Organization [facility] Address [address] [place] [address] Phone Care Team Providers Care Field Examiner Name Role Phone Alban Abrams MD Primary Care Provider [phone] Self-Referred, Patient Unavailable Unavailab Jair Rodriguez MD, PhD Unavailable [phone] Jair Gonzalez MD, PhD Unavailable [phone] Raymon Norman MD Unavailable Shiloh Beck MD Unavailable [phone] Encounter Details Date Type Department Care Team (Late st Contact Info) Description 09/29/2023 Procedure Pass [facility] [address] [place] [address] Social History Tobacco Use Types Packs/Day Years [...] Contact Info) Description 10/12/2024 Procedure Pass [facility] Imaging Department, [facility], [place] 450 [facility], Floor [address]1 [place] [address] 10/12/2024 Procedure Pass [facility] Imaging Department, [facility], [place] 450 [facility], [facility] L1 [place] [address] 01/11/2025 6:45 AM EST Blood Draw [facility] Imaging Department, [facility], Imaging Asphw-sb-Wwyb [address] [place] [address], [facility] [address] [place] [address] Jair Gonzalez MD, PhD [address] [place] [phone] [email or web address] 01/11/2025 8:40 AM EST Appointment [facility] Imaging Department, [facility], [place] 450 [facility], [facility] [address] [place] [address] Jair Gonzalez MD, PhD [address] [place] [phone] [email or web address] 01/11/2025 10:30 AM EST Office Visit [facility], [address], 10th [place] [address] Jair Gonzalez MD, PhD [address] [place] [phone] [email or web address] [email or web address] documented as of this encounter Visit Diagnoses Not on filedocumented in this encounter Care Teams Field Examiner Relationship Specialty Start Date End Date Alban Abrams MD [address] [place] [address] [facility] [address] PCP - General Internal Medicine 02/17/17 Self-Referred, Patient Referring Physician 02/17/17 Jair Gonzalez MD, PhD [address] [place] [address] [email or web address] Primary Oncologist Oncology 02/17/17 Jair Gonzalez MD, PhD [address] [place] [address] [email or web address] Primary Oncologist Oncology 02/17/17 Raymon Norman MD [address] [place] [phone] [email or web address] Primary Oncologist Surgical Oncology 03/17/17 Shiloh Beck MD [address] [place] [phone] [email or web address] Hemat[facility] On[facility] 12/30/17 documented as of this encounter Additional Source Comments The information contained in this document represents components of the legal health record. It is not the complete legal health record.[facility]
--- OUTSIDE RECORDS SUMMARY | 2024-11-03 11:49 | XMS_ITS | Encounter Summary ---
Author Organization [facility] Address [address] [facility] [address] [place] [address] Phone Care Team Providers Care Dental Laboratory Supervisor Name Role Phone Alban Abrams MD Primary Care Provider [phone] Self-Referred, Patient Unavailable Unavailab Jair Rodriguez MD, PhD Unavailable [phone] Jair Gonzalez MD, PhD Unavailable [phone] Raymon Norman MD Unavailable [phone] Shiloh Beck MD Unavailable [phone] Encounter Details Date Type Department Care Team (Late Contact Info) Description 01/10/2019 Procedure Pass [facility] Endoscopy Department 75 [place] [address] Social History Tobacco Use Types Packs/Day Years [...] st Contact Info) Description 10/12/2024 Procedure Pass [facility] Imaging Department, [facility], [place] [address] [facility], Floor [address]1 [place] [address] 10/12/2024 Procedure Pass [facility] Imaging Department, [facility], [place] [address] [facility], Floor [address]1 [place] [address] 01/11/2025 6:45 AM EST Blood Draw [facility] Imaging Department, [facility], Imaging Oermt-es-Ugns [address] [facility], [address] [place] [address] Jair Gonzalez MD, PhD [address] [place] [phone] [email or web address] 01/11/2025 8:40 AM EST Appointment [facility] Imaging Department, [facility], [place] [address] [facility], Floor [address] [place] [address] Jair Gonzalez MD, PhD [address] [place] [phone] [email or web address] 01/11/2025 10:30 AM EST Office Visit [facility], [address], 10th [place] [address] Jair Gonzalez MD, PhD [address] [place] [phone] [email or web address] documented as of this encounter Visit Diagnoses Not on filedocumented in this encounter Care Teams Dental Laboratory Supervisor Relationship Specialty Start Date End Date Alban Abrams MD [address] [place] [address] [place] [address] PCP - General Internal Medicine 02/17/17 Self-Referred, Patient Referring Physician 02/17/17 Jair Gonzalez MD, PhD 450 [place] [address] [email or web address] Primary Oncologist Oncology 02/17/17 Jair Gonzalez MD, PhD 450 [place] [address] [email or web address] Primary Oncologist Oncology 02/17/17 Raymon Norman MD [address] [place] [address] [email or web address] Primary Oncologist Surgical Oncology 03/17/17 Shiloh Beck MD [address] [place] [address] [email or web address] [facility] 12/30/17 documented as of this encounter Additional Source Comments The information contained in this document represents components of the legal health record. It is not the complete legal health record.[facility]
--- OUTSIDE RECORDS SUMMARY | 2024-11-03 11:49 | XMS_ITS | Encounter Summary ---
Author Organization [facility] Address [address] [place] [address] Phone Care Team Providers Care Door Technician Name Role Phone Alban Abrams MD Primary Care Provider [phone] Self-Referred, Patient Unavailable Unavailab Jair Rodriguez MD, PhD Unavailable [phone] Jair Gonzalez MD, PhD Unavailable [phone] Raymon Norman MD Unavailable Shiloh Beck MD Unavailable [phone] Encounter Details Date Type Department Care Team (Late st Contact Info) Description 12/30/2023 Procedure Pass [facility], [facility] [place] [address] [facility], Floor L1 [place] [address] Social History Tobacco Use Types Packs/Day Years [...] st Contact Info) Description 10/12/2024 Procedure Pass [facility] Imaging Department, [facility], [place] [address] [facility], Floor L1 [place] [address] 10/12/2024 Procedure Pass [facility] Imaging Department, [facility], [place] [address] [facility], Floor L1 [place] [address] 01/11/2025 6:45 AM EST Blood Draw [facility] Imaging Department, [facility], Imaging Eppji-eq-Cbmw [address] [facility], Floor L1 [place] [address] Jair Gonzalez MD, PhD [address] [place] [address] [email or web address] 01/11/2025 8:40 AM EST Appointment [facility], [facility], [place] [address] [facility], Floor L1 [place] [address] Jair Gonzalez MD, PhD [address] [place] [phone] [email or web address] 01/11/2025 10:30 AM EST Office Visit [facility], [facility] [address] [facility], 10th [place] [address] Jair Gonzalez MD, PhD [address] [place] [address] [email or web address] documented as of this encounter Visit Diagnoses Not on filedocumented in this encounter Care Teams Door Technician Relationship Specialty Start Date End Date Alban Abrams MD [address] [place] [address] [place] [address] PCP - General Internal Medicine 02/17/17 Self-Referred, Patient Referring Physician 02/17/17 Jair Gonzalez MD, PhD [address] [place] [phone] [email or web address] Primary Oncologist Oncology 02/17/17 Jair Gonzalez MD, PhD [address] [place] [phone] [email or web address] Primary Oncologist Oncology 02/17/17 Raymon Norman MD [address] [place] [phone] [email or web address] Primary Oncologist Surgical Oncology 03/17/17 Shiloh Beck MD [address] [place] [phone] [email or web address] Hematology and Oncology 12/30/17 documented as of this encounter Additional Source Comments The information contained in this document represents components of the legal health record. It is not the complete legal health record.[facility]
--- OUTSIDE RECORDS SUMMARY | 2024-11-03 11:49 | XMS_ITS | Encounter Summary ---
Author Organization [facility] Address [address] [place] [address] Phone Care Team Providers Care Master Plumber Name Role Phone Alban Abrams MD Primary Care Provider [phone] Self-Referred, Patient Unavailable Unavailab Jair Rodriguez MD, PhD Unavailable Jair Gonzalez MD, PhD Unavailable [phone] Raymon Norman MD Unavailable Shiloh Beck MD Unavailable [phone] Encounter Details Date Type Department Care Team (Late st Contact Info) Description 12/30/2023 Procedure Pass [facility] Imaging [facility], [facility] [place] [address] [facility], Floor L1 [place] [address] Social History Tobacco Use Types Packs/Day Years [...] st Contact Info) Description 10/12/2024 Procedure Pass [facility] Imaging Department, [facility], [place] [address] [facility], Floor [address]1 [place] [address] 10/12/2024 Procedure Pass [facility] Imaging Department, [facility], [place] [address] [facility], Floor [address]1 [place] [address] 01/11/2025 6:45 AM EST Blood Draw [facility] Imaging Department, [facility], Imaging Fmmsu-rl-Gdlx [address] [facility], Floor [address]1 [place] [address] Jair Gonzalez MD, PhD [address] [place] [phone] [email or web address] 01/11/2025 8:40 AM EST Appointment [facility], [facility], [place] [address] [facility], Floor [address]1 [place] [address] Jair Gonzalez MD, PhD [address] [place] [phone] [email or web address] 01/11/2025 10:30 AM EST Office Visit [facility], [facility] 450 [facility], 10th [place] [address] Jair Gonzalez MD, PhD [address] [place] [phone] [email or web address] documented as of this encounter Visit Diagnoses Not on filedocumented in this encounter Care Teams Master Plumber Relationship Specialty Start Date End Date Alban Abrams MD [address] [place] [address] [place] [address] PCP - General Internal Medicine 02/17/17 Self-Referred, Patient Referring Physician 02/17/17 Jair Gonzalez MD, PhD [address] [place] [phone] [email or web address] Primary Oncologist Oncology 02/17/17 Jair Gonzalez MD, PhD [address] [place] [phone] [email or web address] Primary Oncologist Oncology 02/17/17 Raymon Norman MD [address] [place] [phone] [email or web address] Primary Oncologist Surgical Oncology 03/17/17 Shiloh Beck MD [address] [place] [phone] [email or web address] Hematology [email or web address] 12/30/17 documented as of this encounter Additional Source Comments The information contained in this document represents components of the legal health record. It is not the complete legal health record.[facility]
--- OUTSIDE RECORDS SUMMARY | 2024-11-03 11:49 | XMS_ITS | Encounter Summary ---
Author Organization [facility] Address [address] [facility] [address] [place] [address] Phone Care Team Providers Care Horn Player Name Role Phone Alban Abrams MD Primary Care Provider [phone] Self-Referred, Patient Unavailable Unavailab Jair Rodriguez MD, PhD Unavailable [phone] Jair Gonzalez MD, PhD Unavailable [phone] Raymon Norman MD Unavailable [phone] Shiloh Beck MD Unavailable [phone] Encounter Details Date Type Department Care Team (Late st Contact Info) Description 10/23/2021 Procedure Pass [facility] Imaging [facility], [facility] [place] 450 [facility], Floor L1 [place] [address] Social History Tobacco Use Types Packs/Day Years [...] st Contact Info) Description 10/12/2024 Procedure Pass [facility] Imaging Department, [facility], [place] [address] [facility], Floor [address]1 [place] [address] 10/12/2024 Procedure Pass [facility] Imaging Department, [facility], [place] [address] [facility], Floor [address]1 [place] [address] 01/11/2025 6:45 AM EST Blood Draw [facility] Imaging Department, [facility], Imaging Ebkdl-ua-Pecm [address] [facility], Floor [address]1 [place] [address] Jair Gonzalez MD, PhD [address] [place] [phone] [email or web address] 01/11/2025 8:40 AM EST Appointment [facility] Imaging Department, [facility], [place] [address] [facility], Floor [address]1 [place] [address] Jair Gonzalez MD, PhD [address] [place] [phone] [email or web address] 01/11/2025 10:30 AM EST Office Visit [facility], [address], 10th [place] [address] Jair Gonzalez MD, PhD [address] [place] [phone] [email or web address] documented as of this encounter Visit Diagnoses Not on filedocumented in this encounter Care Teams Horn Player Relationship Specialty Start Date End Date Alban Abrams MD [address] [place] [address] [place] [address] PCP - General Internal Medicine 02/17/17 Self-Referred, Patient Referring Physician 02/17/17 Jair Gonzalez MD, PhD [address] [place] [address] [email or web address] Primary Oncologist Oncology 02/17/17 Jiar Gonzalez MD, PhD [address] [place] [address] [email or web address] Primary Oncologist Oncology 02/17/17 Raymon Norman MD [address] [place] [phone] [email or web address] u Primary Oncologist Surgical Oncology 03/17/17 Shiloh Bekc MD [address] [place] [phone] [email or web address] Hematology and Oncology 12/30/17 documented as of this encounter Additional Source Comments The information contained in this document represents components of the legal health record. It is not the complete legal health record.[facility]
--- OUTSIDE RECORDS SUMMARY | 2024-11-03 11:49 | XMS_ITS | Encounter Summary ---
Author Organization [facility] Address [address] [facility] [address] [place] [address] Phone Care Team Providers Care Wheel Assembler Name Role Phone Alban Abrams MD Primary Care Provider [phone] Self-Referred, Patient Unavailable Unavailab Jair Rodriguez MD, PhD Unavailable [phone] Jair Gonzalez MD, PhD Unavailable [phone] Raymon Norman MD Unavailable [phone] Shiloh Beck MD Unavailable [phone] Reason for Referral * MRI/CAT Scan - Closed Specialty Diagnoses / Procedures Referred By Alessandra t Referred To Contact Radiology Diagnoses Malignant neoplasm of colon, unspecified part of colon Procedures CT Abdomen/Pelvis CT CHEST Jair Gonzalez MD, PhD [address] [place] [address] Phone: tel: fax: mailto:[email or web address] Referral ID Status Reason Start Date Expiration Date Visits Re quested Visits Authorized [id number] Closed 10/09/2024 04/08/2025 1 1 * MRI/CAT Scan - Closed Specialty Diagnoses / Procedures Referred By Contac t Referred To Contact Radiology Diagnoses Malignant neoplasm of colon, unspecified part of colon Procedures CT Chest CT ABDOMEN/PELVIS Jair Gonzalez MD, PhD [address] [place] [address] Phone: tel: fax: mailto:[email or web address] Referral ID Status Reason Start Date Expiration Date Visits Re quested Visits Authorized [id number] Closed 10/09/2024 04/08/2025 1 1 Encounter Details Date Type Department Care Team (Late st Contact Info) Description 10/09/2024 Orders Only [facility], [facility] [place] [address] [facility], 10th [place] [address] Jair Gonzalez MD, PhD [address] [place] [address] [email or web address] Malignant neoplasm of colon, unspecified part of [...] st Contact Info) Description 10/12/2024 Procedure Pass [facility] Imaging Department, [facility], [place] [address] [facility], Floor [address]1 [place] [address] 10/12/2024 Procedure Pass [facility] Imaging Department, [facility], [place] [address] [facility], [place] [address] [place] [address] 01/11/2025 6:45 AM EST Blood Draw [facility] Imaging Department, [facility], Imaging Jwrlf-iv-Whdz [address] [facility], [place] [address] [place] [address] Jair Gonzalez MD, PhD [address] [place] [address] [email or web address] 01/11/2025 8:40 AM EST Appointment [facility], [facility], [place] [address] [facility], [place] [address] [place] [address] Jair Gonzalez MD, PhD [address] [place] [address] [email or web address] [email or web address] 01/11/2025 10:30 AM EST Office Visit [facility], [facility] [address] [facility], 10th [place] [address] Jair Gonzalez MD, PhD [address] [place] [address] [email or web address] documented as of this encounter Results * [...] clinician's provided indication for this examination in [facility]: *Colon cancer, restaging Review of the Electronic [...] * Magnesium (10/11/2024 2:25 PM EDT) Pathologist [facility] MAGNESIUM 2.1 1.7 - 2.6 mg/dL [facility]# [id number] Blood 10/11/2024 2:25 PM EDT 10/11/2024 2:26 PM EDT Jair Gonzalez MD, PhD LAB BLOOD ORDERABLES Fi nal Result [facility]# [id number] [address] [place] [address] * (ABNORMAL) Comprehensive metabolic panel (10/11/2024 2:25 PM EDT) [facility] SODIUM 139 136 - 145 mmol/L [facility] LIC# [id number] POTASSIUM 4.2 3.4 - 5.1 mmol/L [facility]# [id number] CHLORIDE 103 98 - 107 mmol/L [facility]# [id number] CO2 20(L) 22 - 31 mmol/L [facility]# [id number] BUN 27(H) 6 - 23 mg/dL [facility]# [id number] CREATININE 1.12 0.50 - 1.20 mg/dL [facility]# [id number] GLUCOSE 180(H) 70 - 100 mg/dL [facility]# [id number] ALBUMIN 3.4(L) 3.5 - 5.2 g/dL [facility]# [id number] TOTAL PROTEIN 6.0(L) 6.4 - 8.3 g/dL [facility]# [id number] CALCIUM 9.0 8.8 - 10.7 mg/dL [facility]# [id number] ALKALINE PHOSPHATASE 110 40 - 129 U/L [facility]# [id number] TOTAL BILIRUBIN 0.7 0.2 - 1.2 mg/dL [facility]# [id number] AST 33 <41 U/L [facility]# [id number] ALT 42(H) <42 U/L [facility]# [id number] GLOBULIN 2.6 2.3 - 4.2 g/dL [facility]# [id number] EGFR 69 >59 mL/min/1.7 3m2 [facility]# [id number] Comment:Estimated glomerular filtration rate calculated using the CKD-EPI refit equation. ANION GAP 16 7 - 17 mmol/L [facility]# [id number] Blood 10/11/2024 2:25 PM EDT 10/11/2024 2:26 PM EDT us Jair Gonzalez MD, PhD LAB BLOOD ORDERABLES Fi nal Result [facility]# [id number] [address] [place] [address] * (ABNORMAL) Carcinoembryonic antigen (CEA) (10/11/2024 2:25 PM EDT) CEA 6.4(H) 0 - 3.7 ng/mL [facility]# [id number] Comment: CEA REFERENCE RANGE: NON-SMOKERS: < 3.8 ng/mL SMOKERS: < 5.0 ng/mL Blood 10/11/2024 2:25 PM EDT 10/11/2024 2:26 PM EDT us Jair Gonzalez MD, PhD LAB BLOOD ORDERABLES Fi nal Result [facility]# [id number] [address] [place] [address], [facility] * (ABNORMAL) CBC and differential (10/11/2024 2:25 PM EDT) WBC 3.19(L) 4.00 - 10.00 K/uL [facility]IC# [id number] RBC 3.19(L) 4.50 - 6.40 M/uL [facility]IC# [id number] HGB 10.4(L) 13.5 - 18.0 g/dL [facility]# [id number] HCT 31.1(L) 40.0 - 54.0 % [facility] LIC# [id number] PLT 143(L) 150 - 450 K/uL [facility]# [id number] MCV 97.5 80.0 - 100.0 fL [facility]# [id number] MCH 32.6(H) 27.0 - 32.0 pg [facility]# [id number] MCHC 33.4 32.0 - 36.0 g/dL [facility]# [id number] RDW 15.4(H) 11.5 - 14.5 % [facility]IC# [id number] MPV 9.9 8.4 - 12.0 fL [facility]# [id number] NRBC 0.00 0.00 /100 WBCs [facility] LIC# [id number] ABSOLUTE NRBC 0.00 0 K/uL [facility] LIC# [id number] DIFF METHOD Auto [facility] LIC# [id number] NEUTS 86.3(H) 48.0 - 76.0 % [facility]# [id number] LYMPHS 9.7(L) 18.0 - 41.0 % [facility]IC# [id number] MONOS 3.4(L) 4.0 - 11.0 % [facility]# [id number] EOS 0.0 0.0 - 5.0 % [facility]IC# [id number] BASOS 0.0 0.00 - 1.50 % [facility] LIC# [id number] % IMMATURE GRANS 0.6 0.00 - 1.00 % [facility] LIC# [id number] ABSOLUTE NEUTS 2.75 1.92 - 7.60 K/uL [facility]IC# [id number] ABSOLUTE LYMPHS 0.31(L) 0.72 - 4.10 K/uL [facility]IC# [id number] ABSOLUTE MONOS 0.11(L) 0.16 - 1.10 K/uL [facility] LIC# [id number] ABSOLUTE EOS 0.00 0.00 - 0.50 K/uL [facility] LIC# [id number] ABSOLUTE BASOS 0.00 0.00 - 0.15 K/uL [facility]IC# [id number] ABS IMMATURE GRANS 0.02 0.00 - 0.10 K/uL [facility]IC# [id number] Blood 10/11/2024 2:2 5 PM EDT 10/11/2024 2:26 PM EDT us Jair Gonzalez MD, PhD LAB BLOOD ORDERABLES Fi nal Result [facility]# [id number] [address] documented in this encounter Visit Diagnoses Diagnosis Malignant neoplasm of colon, unspecified part of colon- Primary Malignant neoplasm of colon, unspecified part of colon documented in this encounter Care Teams Wheel Assembler Relationship Specialty Start Date End Date Alban Abrams MD [address] [place] [address] [place] [address] PCP - General Internal Medicine 02/17/17 Self-Referred, Patient Referring Physician 02/17/17 Jair Gonzalez MD, PhD [address] [place] [address] [email or web address] Primary Oncologist Oncology 02/17/17 Jair Gonzalez MD, PhD [address] [place] [address] [email or web address] Primary Oncologist Oncology 02/17/17 Raymon Norman MD [address] [place] [phone] [email or web address] Primary Oncologist Surgical Oncology 03/17/17 Shiloh Beck MD [address] [place] [phone] [email or web address] [email or web address] 12/30/17 documented as of this encounter Additional Source Comments The information contained in this document represents components of the legal health record. It is not the complete legal health record.[facility]
--- OUTSIDE RECORDS SUMMARY | 2024-11-03 11:49 | XMS_ITS | Encounter Summary ---
Author Organization [facility] Address [address] [place] [address] Phone Care Team Providers Care Nurse Recruiter Name Role Phone Alban Abrams MD Primary Care Provider Self-Referred, Patient Unavailable Unavailab Jair Rodriguez MD, PhD Unavailable [phone] Jair Gonzalez MD, PhD Unavailable [phone] Raymon Norman MD Unavailable Shiloh Beck MD Unavailable [phone] Encounter Details Date Type Department Care Team (Late st Contact Info) Description 09/23/2023 Procedure Pass [facility] Imaging Department, [facility] [place], [place] [address] [facility], Floor [address]1 [place] [address] Social History Tobacco Use Types Packs/Day Years [...] Procedure Pass [facility] Imaging Department, [facility], [place] [address] [facility], Floor [address] [place] [address] 10/12/2024 Procedure Pass [facility] Imaging Department, [facility], [place] [address] [facility], Floor [address]1 [place] [address] 01/11/2025 6:45 AM EST Blood Draw [facility] Imaging Department, [facility], Imaging Kszqw-sd-Lmwi [address] [facility], [address] [place] [address] Jair Gonzalez MD, PhD [address] [place] [phone] [email or web address] 01/11/2025 8:40 AM EST Appointment [facility] Imaging Department, [facility], [place] [address] [facility], [address]1 [place] [address] Jair Gonzalez MD, PhD [address] [place] [phone] [email or web address] 01/11/2025 10:30 AM EST Office Visit [facility], [facility] 450 [facility], 10th [place] [address] Jair Gonzalez MD, PhD [address] [place] [address] [email or web address] documented as of this encounter Visit Diagnoses Not on filedocumented in this encounter Care Teams Nurse Recruiter Relationship Specialty Start Date End Date Alban Abrams MD [address] [place] [address] [address] PCP - General Internal Medicine 02/17/17 Self-Referred, Patient Referring Physician 02/17/17 Jair Gonzalez MD, PhD [address] [place] [phone] [email or web address] Primary Oncologist Oncology 02/17/17 Jair Gonzalez MD, PhD [address] [place] [phone] [email or web address] Primary Oncologist Oncology 02/17/17 Raymon Norman MD [address] [place] [phone] [email or web address] Primary Oncologist Surgical Oncology 03/17/17 Shiloh Beck MD [address] [place] [phone] [email or web address] Hematology and Oncology 12/30/17 documented as of this encounter Additional Source Comments The information contained in this document represents components of the legal health record. It is not the complete legal health record.[facility]
--- OUTSIDE RECORDS SUMMARY | 2024-11-03 11:49 | XMS_ITS | Clinical Summary ---
Author Organization [facility] Address [address] [place] [address] Care Team Providers Care Director Erp Name Role Phone Pcp, No Primary Care [...] Zoster (Shingles) Vaccine (1 of 2) 1998 RSV Vaccine 60 years and old er and Patients (1 - 1-dose 75+ series) 12/27/2023 Influenza Vaccine 09/29/2024 COVID-19 Vaccine (2023-2 5 season) 2024 Hepatitis B Vaccines Aged Out No long er eligible based on patient's age to complete this topic Insurance MEDICARE PART A & B [facility] Care Teams Director Erp Relationship Specialty Start Date End Date Pcp, No PCP - General General Medicine 11/23/22
--- OUTSIDE RECORDS SUMMARY | 2024-11-03 11:49 | XMS_ITS | Encounter Summary ---
Author Organization [facility] Address [address] [employer] [facility] [address] [place] [address] Phone Care Team Providers Care Gear Hobber Operator Name Role Phone Alban Abrams MD Primary Care Provider [phone] Self-Referred, Patient Unavailable Unavailab Jair Rodriguez MD, PhD Unavailable [phone] Jair Gonzalez MD, PhD Unavailable [phone] Raymon Norman MD Unavailable Shiloh Beck MD Unavailable Encounter Details Date Type Department Care Team (Late st Contact Info) Description 10/15/2017 Procedure Pass [facility], [facility] [place] [address] [facility], Floor [address]1 [place] [address] Social History Tobacco Use Types Packs/Day Years [...] Info) Description 10/12/2024 Procedure Pass [facility] Imaging Department, [facility], [place] [address] [facility], [address] [place] [address] 10/12/2024 Procedure Pass [facility] Imaging Department, [facility] [place] [address] [facility], [address] [place] [address] 01/11/2025 6:45 AM EST Blood Draw [facility] Imaging Department, [facility], Imaging Vvqpl-na-Wprn [address] [facility], [address] [place] [address] Jair Gonzalez MD, PhD [address] [place] [phone] Samm@d [facility] 01/11/2025 8:40 AM EST Appointment [facility] Imaging Department, [facility], [place] [address] [facility], [address] [place] [address] Jair Gonzalez MD, PhD [address] [place] [address] Samm@d [email or web address] 01/11/2025 10:30 AM EST Office Visit [facility], [address], 10th [place] [address] Jair Gonzalez MD, PhD [address] [place] [address] Samm@d [facility] documented as of this encounter Visit Diagnoses Not on filedocumented in this encounter Care Teams Gear Hobber Operator Relationship Specialty Start Date End Date Alban Abrams MD [address] [place] [address] [place] [address] PCP - General Internal Medicine 02/17/17 Self-Referred, Patient Referring Physician 02/17/17 Jair Gonzalez MD, PhD [address] [place] [address] [email or web address] Primary Oncologist Oncology 02/17/17 Jair Gonzalez MD, PhD [address] [place] [address] [email or web address] Primary Oncologist Oncology 02/17/17 Raymon Norman MD [address] [place] [address] [email or web address] Primary Oncologist Surgical Oncology 03/17/17 Shiloh Beck MD [address] [place] [address] [email or web address] Hematology and Oncology 12/30/17 documented as of this encounter Additional Source Comments The information contained in this document represents components of the legal health record. It is not the complete legal health record.[facility]
--- OUTSIDE RECORDS SUMMARY | 2024-11-03 11:49 | XMS_ITS | Encounter Summary ---
Author Organization [facility] Address [address] [employer] [facility] [address] [place] [address] Phone Care Team Providers Care Acrobatic Dancer Name Role Phone Alban Abrams MD Primary Care Provider [phone] Self-Referred, Patient Unavailable Unavailab Jair Rodriguez MD, PhD Unavailable [phone] Jair Gonzalez MD, PhD Unavailable [phone] Raymon Norman MD Unavailable [phone] Shiloh Beck MD Unavailable [phone] Encounter Details Date Type Department Care Team (Late st Contact Info) Description 10/23/2021 Procedure Pass [facility], [facility] [place] [address] [facility], Floor [address]1 [place] [address] Social History Tobacco Use Types Packs/Day Years [...] Contact Info) Description 10/12/2024 Procedure Pass [facility] Imaging Department, [facility], [place] [address] [facility], Floor [address]1 [place] [address] 10/12/2024 Procedure Pass [facility] Imaging Department, [facility] [address] [facility], [address] [place] [address] 01/11/2025 6:45 AM EST Blood Draw [facility] Imaging Department, [facility], Imaging Jkzfl-on-Sxcz [address] [facility], [address] [place] [address] Jair Gonzalez MD, PhD [address] [place] [address] [email or web address] 01/11/2025 8:40 AM EST Appointment [facility] Imaging Department, [facility], [place] [address] [facility], Floor [address]1 [place] [address] Jair Gonzalez MD, PhD [address] [place] [address] [email or web address] [email or web address] 01/11/2025 10:30 AM EST Office Visit [facility], [address], 10th [place] [address] Jair Gonzalez MD, PhD [address] [place] [address] Samm@d [facility] documented as of this encounter Visit Diagnoses Not on filedocumented in this encounter Care Teams Acrobatic Dancer Relationship Specialty Start Date End Date Alban Abrams MD [address] [place] [address] [place] [address] PCP - General Internal Medicine 02/17/17 Self-Referred, Patient Referring Physician 02/17/17 Jair Gonzalez MD, PhD [address] [place] [address] [email or web address] Primary Oncologist Oncology 02/17/17 Jair Gonzalez MD, PhD [address] [place] [address] Samm@[email or web address] Primary Oncologist Oncology 02/17/17 Raymon Norman MD [address] [place] [address] [email or web address] Primary Oncologist Surgical Oncology 03/17/17 Shiloh Beck MD [address] [place] [phone] [email or web address] Hematology and Oncology 12/30/17 documented as of this encounter Additional Source Comments The information contained in this document represents components of the legal health record. It is not the complete legal health record.[facility]
--- OUTSIDE RECORDS SUMMARY | 2024-11-03 11:49 | XMS_ITS | Encounter Summary ---
Author Organization [facility] Address [address] [place] [address] Phone Care Team Providers Care Ict Programmer Name Role Phone Alban Abrams MD Primary Care Provider [phone] Self-Referred, Patient Unavailable Unavailab Jair Rodriguez MD, PhD Unavailable [phone] Jair Gonzalez MD, PhD Unavailable [phone] Raymon Norman MD Unavailable Shiloh Beck MD Unavailable [phone] Encounter Details Date Type Department Care Team (Late st Contact Info) Description 10/09/2024 Procedure Pass [facility] [place] [facility] [place] [address] [facility] 3rd [place] [address] Social History Tobacco Use Types Packs/Day Years [...] Pass [facility] Imaging Department, [facility] [place], [place] 450 [facility], Floor [address]1 [place] [address] 10/12/2024 Procedure Pass [facility] Imaging Department, [facility] [place] [address] [facility], Floor [address] [place] [address] 01/11/2025 6:45 AM EST Blood Draw [facility] Imaging Department, [facility], Imaging Vzpak-dr-Htlp [address] [facility], Floor [address] [place] [address] Jair Gonzalez MD, PhD [address] [place] [address] Samm@d [facility] 01/11/2025 8:40 AM EST Appointment [facility] Imaging Department, [facility] [place] [address] [facility], [address] [place] [address] Jair Gonzalez MD, PhD [address] [place] [phone] Samm@d [facility] 01/11/2025 10:30 AM EST Office Visit [facility], [address], 10th [place] [address] Jair Gonzalez MD, PhD [address] [place] [phone] Samm@d [facility] documented as of this encounter Visit Diagnoses Not on filedocumented in this encounter Care Teams Ict Programmer Relationship Specialty Start Date End Date Alban Abrams MD [address] [place] [address] [place] [address] PCP - General Internal Medicine 02/17/17 Self-Referred, Patient Referring Physician 02/17/17 Jair Gonzalez MD, PhD [address] [place] [address], [place] [address] [email or web address] Primary Oncologist Oncology 02/17/17 Jair Gonzalez MD, PhD [address] [place] [address] [email or web address] Primary Oncologist Oncology 02/17/17 Raymon Norman MD [address] [place] [address] [email or web address] Primary Oncologist Surgical Oncology 03/17/17 Shiloh Beck MD [address] [place] [address] [email or web address] Hematology and Oncology 12/30/17 documented as of this encounter Additional Source Comments The information contained in this document represents components of the legal health record. It is not the complete legal health record.[facility]
--- OUTSIDE RECORDS SUMMARY | 2024-11-03 11:49 | XMS_ITS | Encounter Summary ---
Author Organization [facility] Address [address] [facility] [address] [place] [address] Phone Care Team Providers Care Ham Curer Name Role Phone Alban Abrams MD Primary Care Provider [phone] Self-Referred, Patient Unavailable Unavailab Jair Rodriguez MD, PhD Unavailable [phone] Jair Gonzalez MD, PhD Unavailable [phone] Raymon Norman MD Unavailable Shiloh Beck MD Unavailable [phone] Encounter Details Date Type Department Care Team (Late st Contact Info) Description 11/16/2023 Procedure Pass [facility] Periop [address] [place] [address] Social History Tobacco Use Types Packs/Day Years [...] 8:13 PM EDT Kellie Mchugh RN * [place] Suicide Severity Rating Scale (Screener/Recent Self-Report) Question [...] 10/12/2024 Procedure Pass [facility], [facility], [place] [address] [facility], Floor [address]1 [place] [address] 10/12/2024 Procedure Pass [facility] Imaging Department, [facility] [place] [address] [facility], [address]1 [place] [address] 01/11/2025 6:45 AM EST Blood Draw [facility] Imaging Department, [facility], Imaging Ljqfo-hc-Tisr [address] [facility], [address] [place] [address] Jair Gonzalez MD, PhD [address] [place] [address] [email or web address] 01/11/2025 8:40 AM EST Appointment [facility] Imaging Department, [facility], [place] [address] [facility], [address]1 [place] [address] Jair Gonzalez MD, PhD [address] [place] [address] Samm@d [email or web address] 01/11/2025 10:30 AM EST Office Visit [facility], [address], 10th [place] [address] Jair Gonzalez MD, PhD [address] [place] [phone] Samm@d [email or web address] documented as of this encounter Visit Diagnoses Not on filedocumented in this encounter Care Teams Ham Curer Relationship Specialty Start Date End Date Alban Abrams MD [address] [place] [address] [place] [address] PCP - General Internal Medicine 02/17/17 Self-Referred, Patient Referring Physician 02/17/17 Jair Gonzalez MD, PhD [address] [place] [address] Samm@[email or web address] Primary Oncologist Oncology 02/17/17 Jair Gonzalez MD, PhD [address] [place] [address] Samm@[email or web address] Primary Oncologist Oncology 02/17/17 Raymon Norman MD [address] [place] [phone] [email or web address] Primary Oncologist Surgical Oncology 03/17/17 Shiloh Beck MD [address] [place] [address] [email or web address] Hematology and Oncology 12/30/17 documented as of this encounter Additional Source Comments The information contained in this document represents components of the legal health record. It is not the complete legal health record.[facility]
--- OUTSIDE RECORDS SUMMARY | 2024-11-03 11:49 | XMS_ITS | Encounter Summary ---
Author Organization [facility] Address [address] [place] [address] Phone Care Team Providers Care Greige Mender Name Role Phone Alban Abrams MD Primary Care Provider [phone] Self-Referred, Patient Unavailable Unavailab Jair Rodriguez MD, PhD Unavailable [phone] Jair Gonzalez MD, PhD Unavailable [phone] Raymon Norman MD Unavailable [phone] Shiloh Beck MD Unavailable [phone] Encounter Details Date Type Department Care Team (Late st Contact Info) Description 10/27/2023 Procedure Pass [facility] [address] [place] [address] Social History Tobacco Use Types Packs/Day Years [...] st Contact Info) Description 10/12/2024 Procedure Pass [facility] Imaging Department, [facility], [place] [address] [facility], Floor [address]1 [place] [address] 10/12/2024 Procedure Pass [facility] Imaging Department, [facility] [place] [address] [facility], Floor [address] [place] [address] 01/11/2025 6:45 AM EST Blood Draw [facility] Imaging Department, [facility], Imaging Ckcug-pw-Ojyi [address] [facility], Floor [address]1 [place] [address] Jair Gonzalez MD, PhD [address] [place] [address] Samm@[email or web address] 01/11/2025 8:40 AM EST Appointment [facility], [facility], [place] [address] [facility], Floor [address]1 [place] [address] Jair Gonzalez MD, PhD [address] [place] [address] Samm@d [facility] 01/11/2025 10:30 AM EST Office Visit [facility], [facility] [address] [facility], 10th [place] [address] Jair Gonzalez MD, PhD [address] [place] [address] Samm@d [facility] documented as of this encounter Visit Diagnoses Not on filedocumented in this encounter Care Teams Greige Mender Relationship Specialty Start Date End Date Alban Abrams MD [address] [place] [address] [place] [address] PCP - General Internal Medicine 02/17/17 Self-Referred, Patient Referring Physician 02/17/17 Jair Gonzalez MD, PhD [address] [place] [phone] Samm@[email or web address] Primary Oncologist Oncology 02/17/17 Jair Gonzalez MD, PhD [address] [place] [phone] Samm@[email or web address] Primary Oncologist Oncology 02/17/17 Raymon Norman MD [address] [place] [address] [email or web address] Primary Oncologist Surgical Oncology 03/17/17 Shiloh Beck MD [address] [place] [address] [email or web address] Hematology and Oncology 12/30/17 documented as of this encounter Additional Source Comments The information contained in this document represents components of the legal health record. It is not the complete legal health record.[facility]
--- OUTSIDE RECORDS SUMMARY | 2024-11-03 11:49 | XMS_ITS | Encounter Summary ---
Author Organization [facility] Address [address] [place] [address] Phone Care Team Providers Care Brass Buffer Name Role Phone Alban Abrams MD Primary Care Provider [phone] Self-Referred, Patient Unavailable Unavailab Jair Rodriguez MD, PhD Unavailable [phone] Jair Gonzalez MD, PhD Unavailable [phone] Raymon Norman MD Unavailable Shiloh Beck MD Unavailable [phone] Encounter Details Date Type Department Care Team (Late st Contact Info) Description 10/09/2024 Procedure Pass [facility] [place] 300 [facility] 3rd [place] [address] Social History Tobacco Use Types Packs/Day Years [...] Pass [facility] Imaging Department, [facility] [place] [address] [facility], Floor [address]1 [place] [address] 10/12/2024 Procedure Pass [facility] Imaging Department, [facility] [place] [address] [facility], Floor [address]1 [place] [address] 01/11/2025 6:45 AM EST Blood Draw [facility] Imaging Department, [facility], Imaging Znxlj-ee-Kgcn [address] [facility], Floor [address]1 [place] [address] Jair Gonzalez MD, PhD [address] [place] [address] Samm@d [facility] 01/11/2025 8:40 AM EST Appointment [facility] Imaging Department, [facility], [place] [address] [facility], Floor [address]1 [place] [address] Jair Gonzalez MD, PhD [address] [place] [phone] Samm@d [facility] 01/11/2025 10:30 AM EST Office Visit [facility], [address], 10th [place] [address] Jair Gonzalez MD, PhD [address] [place] [address] Samm@d [facility] documented as of this encounter Visit Diagnoses Not on filedocumented in this encounter Care Teams Brass Buffer Relationship Specialty Start Date End Date Alban Abrams MD [address] [place] [address] [place] [address] PCP - General Internal Medicine 02/17/17 Self-Referred, Patient Referring Physician 02/17/17 Jair Gonzalez MD, PhD [address] [place] [address], [place] [address] [email or web address] Primary Oncologist Oncology 02/17/17 Jair Gonzalez MD, PhD 450 [place] [address] [email or web address] Primary Oncologist Oncology 02/17/17 Raymon Norman MD [address] [place] [address] [email or web address]. u Primary Oncologist Surgical Oncology 03/17/17 Shiloh Beck MD [address] [place] [address] [email or web address] Hematology and Oncology 12/30/17 documented as of this encounter Additional Source Comments The information contained in this document represents components of the legal health record. It is not the complete legal health record.[facility]
--- OUTSIDE RECORDS SUMMARY | 2024-11-03 11:49 | XMS_ITS | Encounter Summary ---
Author Organization [facility] Address [address] [employer] [facility] [address] [place] [address] Phone Care Team Providers Care Director Script Name Role Phone Alban Abrams MD Primary Care Provider Self-Referred, Patient Unavailable Unavailab Jair Rodriguez MD, PhD Unavailable [phone] Jair Gonzalez MD, PhD Unavailable [phone] Raymon Norman MD Unavailable Shiloh Beck MD Unavailable [phone] Encounter Details Date Type Department Care Team (Late st Contact Info) Description 10/15/2017 Procedure Pass [facility] Imaging Department, [facility] [place] [address] [facility], Floor [address]1 [place] [address] Social History Tobacco Use Types Packs/Day Years [...] st Contact Info) Description 10/12/2024 Procedure Pass [facility] Imaging Department, [facility] [place] [address] [facility], Floor [address]1 [place] [address] 10/12/2024 Procedure Pass [facility] Imaging Department, [facility] [place] [address] [facility], Floor [address]1 [place] [address] 01/11/2025 6:45 AM EST Blood Draw [facility] Imaging Department, [facility], Imaging Ayfzn-hx-Tjta [address] [facility], Floor [address] [place] [address] Jair Gonzalez MD, PhD [address] [place] [phone] Samm@d [email or web address] 01/11/2025 8:40 AM EST Appointment [facility] Imaging Department, [facility], [place] [address] [facility], Floor [address] [place] [address] Jair Gonzalez MD, PhD [address] [place] [phone] [email or web address] [email or web address] 01/11/2025 10:30 AM EST Office Visit [facility], [address], 10th [place] [address] Jair Gonzalez MD, PhD [address] [place] [address] Samm@d [facility] documented as of this encounter Visit Diagnoses Not on filedocumented in this encounter Care Teams Director Script Relationship Specialty Start Date End Date Alban Abrams MD [address] [place] [address] [place] [address] PCP - General Internal Medicine 02/17/17 Self-Referred, Patient Referring Physician 02/17/17 Jair Gonzalez MD, PhD 450 [place] [address] [email or web address] Primary Oncologist Oncology 02/17/17 Jair Gonzalez MD, PhD [address] [place] [address] [email or web address] Primary Oncologist Oncology 02/17/17 Raymon Norman MD [address] [place] [phone] [email or web address] Primary Oncologist Surgical Oncology 03/17/17 Shiloh Beck MD [address] [place] [address] [email or web address] Hematology and Oncology 12/30/17 documented as of this encounter Additional Source Comments The information contained in this document represents components of the legal health record. It is not the complete legal health record.[facility]
--- OUTSIDE RECORDS SUMMARY | 2024-11-03 11:49 | XMS_ITS | Encounter Summary ---
Author Organization [facility] Address [address] [place] [address] Phone Care Team Providers Care Online Advertising Manager Name Role Phone Alban Abrams MD Primary Care Provider [phone] Self-Referred, Patient Unavailable Unavailab Jair Rodriguez MD, PhD Unavailable [phone] Jair Gonzlaez MD, PhD Unavailable [phone] Raymon Norman MD Unavailable [phone] Shiloh Beck MD Unavailable [phone] Encounter Details Date Type Department Care Team (Late Contact Info) Description 06/07/2018 Procedure Pass [facility] Endoscopy Department [address] [place] [address] Social History Tobacco Use Types Packs/Day Years [...] Info) Description 10/12/[address] [facility] Imaging Department, [facility], [place] [address] [facility], Floor [address]1 [place] [address] 10/12/[address] [facility] Imaging Department, [facility], [place] [address] [facility], Floor [address]1 [place] [address] 01/11/2025 6:45 AM EST Blood Draw [facility] Imaging Department, [facility], Imaging Hxxzd-dk-Fova [address], Floor [address]1 [place] [address] Jair Gonzalez MD, PhD [address] [place] [phone] Samm@d [email or web address] 01/11/2025 8:40 AM EST Appointment [facility] Imaging Department, [facility], [place] [address] [facility], Floor [address]1 [place] [address] Jair Gonzalez MD, PhD [address] [place] [address] Samm@d [email or web address] 01/11/2025 10:30 AM EST Office Visit [facility], [address], 10th [place] [address] Jair Gonzalez MD, PhD [address] [place] [address] Samm@d [email or web address] documented as of this encounter Visit Diagnoses Not on filedocumented in this encounter Care Teams Online Advertising Manager Relationship Specialty Start Date End Date Alban Abrams MD [address] [place] [address] [place] [address] PCP - General Internal Medicine 02/17/17 Self-Referred, Patient Referring Physician 02/17/17 Jair Gonzalez MD, PhD [address] [place] [address] [email or web address] Primary Oncologist Oncology 02/17/17 Jair Gonzalez MD, PhD [address] [place] [address] [email or web address] Primary Oncologist Oncology 02/17/17 Raymon Norman MD [address] [place] [address] [email or web address] Primary Oncologist Surgical Oncology 03/17/17 Shiloh Beck MD [address] [place] [address] [email or web address] Hematology and Oncology 12/30/17 documented as of this encounter Additional Source Comments The information contained in this document represents components of the legal health record. It is not the complete legal health record.[facility]
--- OUTSIDE RECORDS SUMMARY | 2024-11-03 11:49 | XMS_ITS | Encounter Summary ---
Author Organization [facility] Address [address] [place] [address] Phone Care Team Providers Care Musician Instrumental Name Role Phone Alban Abrams MD Primary Care Provider [phone] Self-Referred, Patient Unavailable Unavailab Jair Rodriguez MD, PhD Unavailable [phone] Jair Gonzalez MD, PhD Unavailable [phone] Raymon Norman MD Unavailable Shiloh Beck MD Unavailable [phone] Encounter Details Date Type Department Care Team (Late st Contact Info) Description 09/23/2023 Procedure Pass [facility] [place] [address] [facility], Floor [address]1 [place] [address] Social History Tobacco Use Types Packs/Day Years [...] st Contact Info) Description 10/12/2024 Procedure Pass [facility] Imaging Department, [facility], [place] [address] [facility], Floor [address]1 [place] [address] 10/12/2024 Procedure Pass [facility] Imaging Department, [facility], [place] [address] [facility], Floor [address]1 [place] [address] 01/11/2025 6:45 AM EST Blood Draw [facility] Imaging Department, [facility], Imaging Iwlic-wz-Bmvp [address] [facility], Floor [address]1 [place] [address] Jair Gonzalez MD, PhD [address] [place] [address] Samm@[email or web address] 01/11/2025 8:40 AM EST Appointment [facility] Imaging Department, [facility], [place] [address] [facility], Floor [address]1 [place] [address] Jair Gonzalez MD, PhD [address] [place] [phone] Samm@[email or web address] 01/11/2025 10:30 AM EST Office Visit [facility], [facility] [address] [facility], 10th [place] [address] Jair Gonzalez MD, PhD [address] [place] [address] Samm@[email or web address] documented as of this encounter Visit Diagnoses Not on filedocumented in this encounter Care Teams Musician Instrumental Relationship Specialty Start Date End Date Alban Abrams MD [address] [place] [address] [address] PCP - General Internal Medicine 02/17/17 Self-Referred, Patient Referring Physician 02/17/17 Jair Gonzalez MD, PhD [address] [place] [phone] [email or web address] Primary Oncologist Oncology 02/17/17 Jair Gonzalez MD, PhD [address] [place] [address] [email or web address] Primary Oncologist Oncology 02/17/17 Raymon Norman MD [address] [place] [address] [email or web address] Primary Oncologist Surgical Oncology 03/17/17 Shiloh Beck MD [address] [place] [address] [email or web address] Hematology and Oncology 12/30/17 documented as of this encounter Additional Source Comments The information contained in this document represents components of the legal health record. It is not the complete legal health record.[facility]
--- OUTSIDE RECORDS SUMMARY | 2024-11-03 11:49 | XMS_ITS ---
Author Organization [facility] Address [address] [place] [address] Phone Care Team Providers Care Instrument Setter Name Role Phone Alban Abrams MD Primary Care Provider [phone] Self-Referred, Patient Unavailable Unavailab Jair Rodriguez MD, PhD Unavailable [phone] Jair Gonzalez MD, PhD Unavailable [phone] Raymon Norman MD Unavailable [phone] Shiloh Beck MD Unavailable [phone] Active Problems Problem Noted Date Diagnosed [...]
--- OUTSIDE RECORDS SUMMARY | 2024-11-03 11:49 | XMS_ITS | Encounter Summary ---
Author Organization [facility] Address [address] [facility] [address] [place] [address] Phone Care Team Providers Care Doper Name Role Phone Alban Abrams MD Primary Care Provider [phone] Self-Referred, Patient Unavailable Unavailab Jair Rodriguez MD, PhD Unavailable [phone] Jair Gonzalez MD, PhD Unavailable [phone] Raymon Norman MD Unavailable Shiloh Beck MD Unavailable [phone] Encounter Details Date Type Department Care Team (Late st Contact Info) Description 10/26/2023 Procedure Pass [facility] Periop [address] [place] [address] Social History Tobacco Use Types Packs/Day Years [...] 6:20 PM EDT Dawna Pozo RN * [place] Suicide Severity Rating Scale (Screener/Recent Self-Report) Question [...] 10/12/2024 Procedure Pass [facility] Imaging Department, [facility], [place] [address] [facility], Floor [address]1 [place] [address] 10/12/2024 Procedure Pass [facility] Imaging Department, [facility], [place] [address] [facility], Floor [address]1 [place] [address] 01/11/2025 6:45 AM EST Blood Draw [facility] Imaging Department, [facility], Imaging Fngzc-kr-Vobb [address] [facility], Floor [address]1 [place] [address] Jair Gonzalez MD, PhD [address] [place] [phone] [email or web address] 01/11/2025 8:40 AM EST Appointment [facility] Imaging Department, [facility], [place] [address] [facility], Floor [address]1 [place] [address] Jair Gonzalez MD, PhD [address] [place] [phone] Samm@d [email or web address] 01/11/2025 10:30 AM EST Office Visit [facility], [address], 10th [place] [address] Jair Gonzalez MD, PhD [address] [place] [phone] Samm@d [email or web address] documented as of this encounter Visit Diagnoses Not on filedocumented in this encounter Care Teams Doper Relationship Specialty Start Date End Date Alban Abrams MD [address] [place] [address] [place] [address] PCP - General Internal Medicine 12/20/17 Self-Referred, Patient Referring Physician 02/17/17 Jair Gonzalez MD, PhD 450 [place] [address] [email or web address] Primary Oncologist Oncology 02/17/17 Jair Gonzalez MD, PhD [address] [place] [address] [email or web address] Primary Oncologist Oncology 02/17/17 Raymon Norman MD [address] [place] [address] [email or web address] Primary Oncologist Surgical Oncology 03/17/17 Shiloh Beck MD [address] [place] [address] [email or web address] Hematology and Oncology 12/30/17 documented as of this encounter Additional Source Comments The information contained in this document represents components of the legal health record. It is not the complete legal health record.[facility]
--- OUTSIDE RECORDS SUMMARY | 2024-11-03 11:50 | XMS_ITS | Encounter Summary ---
Author Organization [facility] Address [address] [facility] [address] [place] [address] Phone Care Team Providers Care Cannoneer Name Role Phone Alban Abrams MD Primary Care Provider [phone] Self-Referred, Patient Unavailable Unavailab Jair Rodriguez MD, PhD Unavailable [phone] Jair Gonzalez MD, PhD Unavailable [phone] Raymon Norman MD Unavailable [phone] Shiloh Beck MD Unavailable [phone] Encounter Details Date Type Department Care Team (Late st Contact Info) Description 10/24/2020 Procedure Pass [facility] [place] [facility] [place] [address] [facility] 3rd [place] [address] Social History Tobacco Use Types Packs/Day Years [...] st Contact Info) Description 10/12/2024 Procedure Pass [facility] Imaging Department, [facility] [place] [address] [facility], Floor L1 [place] [address] 10/12/2024 Procedure Pass [facility] Imaging Department, [facility] [place] [address] [facility], Floor [address]1 [place] [address] 01/11/2025 6:45 AM EST Blood Draw [facility] Imaging Department, [facility], Imaging Tomtr-dd-Elqy [address] [facility], Floor [address]1 [place] [address] Jair Gonzalez MD, PhD [address] [place] [address] Samm@[email or web address] 01/11/2025 8:40 AM EST Appointment [facility] Imaging Department, [facility], [place] [address] [facility], Floor L1 [place] [address] Jair Gonzalez MD, PhD [address] [place] [phone] Samm@d [email or web address] 01/11/2025 10:30 AM EST Office Visit [facility], [address], 10th [place] [address] Jair Gonzalez MD, PhD [address] [place] [address] Samm@[email or web address] documented as of this encounter Visit Diagnoses Not on filedocumented in this encounter Care Teams Cannoneer Relationship Specialty Start Date End Date Alban Abrams MD [address] [place] [address] [place] [address] PCP - General Internal Medicine 02/17/17 Self-Referred, Patient Referring Physician 02/17/17 Jair Gonzalez MD, PhD 450 [place] [address] [email or web address] Primary Oncologist Oncology 02/17/17 Jair Gonzalez MD, PhD [address] [place] [address] Samm@[email or web address] Primary Oncologist Oncology 02/17/17 Raymon Norman MD [address] [place] [address] [email or web address] Primary Oncologist Surgical Oncology 03/17/17 Shiloh Beck MD [address] [place] [phone] Hematology and Oncology 12/30/17 documented as of this encounter Additional Source Comments The information contained in this document represents components of the legal health record. It is not the complete legal health record.[facility]
--- OUTSIDE RECORDS SUMMARY | 2024-11-03 11:50 | XMS_ITS | Encounter Summary ---
Author Organization [facility] Address [address] [place] [address] Phone Care Team Providers Care Filling Hauler Name Role Phone Alban Abrams MD Primary Care Provider [phone] Self-Referred, Patient Unavailable Unavailab Jair Rodriguez MD, PhD Unavailable [phone] Jair Gonzalez MD, PhD Unavailable [phone] Raymon Norman MD Unavailable [phone] Shiloh Beck MD Unavailable [phone] Encounter Details Date Type Department Care Team (Late st Contact Info) Description 01/05/2024 Procedure Pass [facility] [address] [place] [address] Social History Tobacco Use Types Packs/Day Years [...] Info) Description 10/12/2024 Procedure Pass [facility] Imaging Department, [facility] [address] [facility], Floor [address]1 [place] [address] 10/12/2024 Procedure Pass [facility] Imaging Department, [facility] [place] [address] [facility], Floor [address]1 [place] [address] 01/11/2025 6:45 AM EST Blood Draw [facility] Imaging Department, [facility], Imaging Pzswp-im-Vbcl [address] [facility], Floor [address]1 [place] [address] Jair Gonzalez MD, PhD [address] [place] [address] Samm@[email or web address] 01/11/2025 8:40 AM EST Appointment [facility] Imaging Department, [facility], [place] [address] [facility], Floor [address]1 [place] [address] Jair Gonzalez MD, PhD [address] [place] [address] Samm@d [facility] 01/11/2025 10:30 AM EST Office Visit [facility], [facility] [address] [facility], 10th [place] [address] Jair Gonzalez MD, PhD [address] [place] [address] Samm@d [email or web address] documented as of this encounter Visit Diagnoses Not on filedocumented in this encounter Care Teams Filling Hauler Relationship Specialty Start Date End Date Alban Abrams MD [address] [place] [address] [place] [address] PCP - General Internal Medicine 02/17/17 Self-Referred, Patient Referring Physician 02/17/17 Jair Gonzalez MD, PhD [address] [place] [phone] Samm@[email or web address] Primary Oncologist Oncology 02/17/17 Jair Gonzalez MD, PhD [address] [place] [phone] Samm@[email or web address] Primary Oncologist Oncology 02/17/17 Raymon Norman MD [address] [place] [address] [email or web address] Primary Oncologist Surgical Oncology 03/17/17 Shiloh Beck MD [address] [place] [address] [email or web address] Hematology and Oncology 12/30/17 documented as of this encounter Additional Source Comments The information contained in this document represents components of the legal health record. It is not the complete legal health record.[facility]
--- OUTSIDE RECORDS SUMMARY | 2024-11-03 11:50 | XMS_ITS | Encounter Summary ---
Author Organization [facility] Address [address] [facility] [address] [place] [address] Phone Care Team Providers Care Railroad Dispatcher Name Role Phone Alban Abrams MD Primary Care Provider Self-Referred, Patient Unavailable Unavailab Jair Rodriguez MD, PhD Unavailable [phone] Jair Gonzalez MD, PhD Unavailable [phone] Raymon Norman MD Unavailable Shiloh Beck MD Unavailable [phone] Encounter Details Date Type Department Care Team (Late st Contact Info) Description 01/25/[address] [facility] Periop [address] [place] [address] Social History Tobacco Use Types Packs/Day Years [...] Info) Description 10/12/2024 Procedure Pass [facility] Imaging Department, [facility] [place] [place] [address] [facility], Floor [address]1 [place] [address] 10/12/2024 Procedure Pass [facility] Imaging Department, [facility], [place] [address] [facility], Floor [address]1 [place] [address] 01/11/2025 6:45 AM EST Blood Draw [facility] Imaging Department, [facility], Imaging Fojds-an-Cvia [address] [facility], Floor [address]1 [place] [address] Jair Gonzalez MD, PhD [address] [place] [address] Samm@d [facility] 01/11/2025 8:40 AM EST Appointment [facility] Imaging Department, [facility], [place] [address] [facility], Floor [address]1 [place] [address] Jair Gonzalez MD, PhD [address] [place] [address] Samm@d [facility] 01/11/2025 10:30 AM EST Office Visit [facility], [address], 10th [place] [address] Jair Gonzalez MD, PhD [address] [place] [phone] Samm@d [facility] documented as of this encounter Visit Diagnoses Not on filedocumented in this encounter Care Teams Railroad Dispatcher Relationship Specialty Start Date End Date Alban Abrams MD [address] [place] [address] [place] [address] PCP - General Internal Medicine 02/17/17 Self-Referred, Patient Referring Physician 02/17/17 Jair Gonzalez MD, PhD [address] [place] [address] [email or web address] Primary Oncologist Oncology 02/17/17 Jair Gonzalez MD, PhD [address] [place] [phone] [email or web address] Primary Oncologist Oncology 02/17/17 Raymon Norman MD [address] [place] [address] [email or web address] Primary Oncologist Surgical Oncology 03/17/17 Shiloh Beck MD [address] [place] [address] [email or web address] Hematology and Oncology 12/30/17 documented as of this encounter Additional Source Comments The information contained in this document represents components of the legal health record. It is not the complete legal health record.[facility]
--- OUTSIDE RECORDS SUMMARY | 2024-11-03 11:50 | XMS_ITS | Encounter Summary ---
Author Organization [facility] Address [address] [place] [address] Phone Care Team Providers Care Records Technician Name Role Phone Alban Abrams MD Primary Care Provider [phone] Self-Referred, Patient Unavailable Unavailab Jair Rodriguez MD, PhD Unavailable [phone] Jair Gonzalez MD, PhD Unavailable [phone] Raymon Norman MD Unavailable Shiloh Beck MD Unavailable [phone] Encounter Details Date Type Department Care Team (Late st Contact Info) Description 08/11/2023 Procedure Pass [facility] [address] [place] [address] Social History Tobacco Use Types Packs/Day Years [...] Contact Info) Description 10/12/2024 Procedure Pass [facility] Imaging Department, [facility], [place] [address] [facility], Floor [address]1 [place] [address] 10/12/2024 Procedure Pass [facility] Imaging Department, [facility], [place] [address] [facility], [facility] [address]1 [place] [address] 01/11/2025 6:45 AM EST Blood Draw [facility] Imaging Department, [facility], Imaging Xxovm-oj-Tkvn [address] [place] [address], [facility] [address]1 [place] [address] Jair Gonzalez MD, PhD [address] [place] [phone] Samm@[email or web address] 01/11/2025 8:40 AM EST Appointment [facility] Imaging Department, [facility], [place] [address] [facility], [facility] [address] [place] [address] Jair Gonzalez MD, PhD [address] [place] [phone] Samm@[email or web address] 01/11/2025 10:30 AM EST Office Visit [facility], [address], 10th [place] [address] Jair Gonzalez MD, PhD [address] [place] [address] Samm@d [email or web address] documented as of this encounter Visit Diagnoses Not on filedocumented in this encounter Care Teams Records Technician Relationship Specialty Start Date End Date Alban Abrams MD [address] [place] [address] [facility] [place] [address] PCP - General Internal Medicine 02/17/17 Self-Referred, Patient Referring Physician 02/17/17 Jair Gonzalez MD, PhD [address] [place] [address] [email or web address] Primary Oncologist Oncology 02/17/17 Jair Gonzalez MD, PhD [address] [place] [address] [email or web address] Primary Oncologist Oncology 02/17/17 Raymon Norman MD [address] [place] [address] [email or web address] Primary Oncologist Surgical Oncology 03/17/17 Shiloh Beck MD [address] [place] [address] [email or web address] Hematology and Oncology 12/30/17 documented as of this encounter Additional Source Comments The information contained in this document represents components of the legal health record. It is not the complete legal health record.[facility]
--- OUTSIDE RECORDS SUMMARY | 2024-11-03 11:50 | XMS_ITS | Encounter Summary ---
Author Organization [facility] Address [address] [place] [address] Phone Care Team Providers Care Railway Track Worker Name Role Phone Alban Abrams MD Primary Care Provider Self-Referred, Patient Unavailable Unavailab Jair Rodriguez MD, PhD Unavailable [phone] Jair Gonzalez MD, PhD Unavailable [phone] Raymon Norman MD Unavailable [phone] Shiloh Beck MD Unavailable [phone] Encounter Details Date Type Department Care Team (Late st Contact Info) Description 08/11/2023 Procedure Pass [facility] [address] [place] [address] Social History Tobacco Use Types Packs/Day Years [...] st Contact Info) Description 10/12/2024 Procedure Pass [facility] Imaging Department, [facility], [place] [address] [facility], Floor L1 [place] [address] 10/12/2024 Procedure Pass [facility] Imaging Department, [facility], [place] [address] [facility], [facility] [address] [place] [address] 01/11/2025 6:45 AM EST Blood Draw [facility] Imaging Department, [facility], Imaging Mqbce-ka-Bnhi [address] [place] [address], [facility] [address] [place] [address] Jair Gonzalez MD, PhD [address] [place] [phone] Samm@[email or web address] 01/11/2025 8:40 AM EST Appointment [facility] Imaging Department, [facility], [place] [address] [facility], [facility] [address] [place] [address] Jair Gonzalez MD, PhD [address] [place] [phone] Samm@[email or web address] 01/11/2025 10:30 AM EST Office Visit [facility], [address], 10th [place] [address] Jair Gonzalez MD, PhD [address] [place] [address] Samm@d [email or web address] documented as of this encounter Visit Diagnoses Not on filedocumented in this encounter Care Teams Railway Track Worker Relationship Specialty Start Date End Date Alban Abrams MD [address] [place] [address] [facility] [place] [address] PCP - General Internal Medicine 02/17/17 Self-Referred, Patient Referring Physician 02/17/17 Jair Gonzalez MD, PhD [address] [place] [address] [email or web address] Primary Oncologist Oncology 02/17/17 Jair Gonzalez MD, PhD [address] [place] [address] [email or web address] Primary Oncologist Oncology 02/17/17 Raymon Norman MD [address] [place] [address] [email or web address] Primary Oncologist Surgical Oncology 03/17/17 Shiloh Beck MD [address] [place] [address] [email or web address] [employer] Hematology and Oncology 12/30/17 documented as of this encounter Additional Source Comments The information contained in this document represents components of the legal health record. It is not the complete legal health record.[facility]
--- OUTSIDE RECORDS SUMMARY | 2024-11-03 11:50 | XMS_ITS | Encounter Summary ---
Author Organization [facility] Address [address] [facility] [address] [place] [address] Phone Care Team Providers Care Power Superintendent Name Role Phone Alban Abrams MD Primary Care Provider [phone] Self-Referred, Patient Unavailable Unavailab Jair Rodriguez MD, PhD Unavailable [phone] Jair Gonzalez MD, PhD Unavailable [phone] Raymon Norman MD Unavailable [phone] Shiloh Beck MD Unavailable [phone] Encounter Details Date Type Department Care Team (Late st Contact Info) Description 03/11/2017 Procedure Pass [facility] OUTSIDE IMG [address] [place] [address] Social History Tobacco Use Types Packs/Day Years [...] Pass [facility] Imaging Department, [facility] [place], [place] [address] [facility], Floor L1 [place] [address] 10/12/2024 Procedure Pass [facility] Imaging Department, [facility], [place] [address] [facility], [facility] L1 [place] [address] 01/11/2025 6:45 AM EST Blood Draw [facility] Imaging Department, [facility], Imaging Axcfk-qb-Kunp [address] [facility], Floor [address]1 [place] [address] Jair Gonzalez MD, PhD [address] [place] [address] [email or web address] 01/11/2025 8:40 AM EST Appointment [facility] Imaging Department, [facility], [place] [address] [facility], Floor [address]1 [place] [address] Jair Gonzalez MD, PhD [address] [place] [phone] Samm@d [email or web address] 01/11/2025 10:30 AM EST Office Visit [facility], [address], 10th [place] [address] Jair Gonzalez MD, PhD [address] [place] [phone] [email or web address] [email or web address] documented as of this encounter Visit Diagnoses Not on filedocumented in this encounter Care Teams Power Superintendent Relationship Specialty Start Date End Date Alban Abrams MD [address] [place] [address] [place] [address] PCP - General Internal Medicine 02/17/17 Self-Referred, Patient Referring Physician 02/17/17 Jair Gonzalez MD, PhD [address] [place] [address] [email or web address] Primary Oncologist Oncology 02/17/17 Jair Gonzalez MD, PhD [address] [place] [address] [email or web address] Primary Oncologist Oncology 02/17/17 Raymon Norman MD [address] [place] [address] [email or web address]. u Primary Oncologist Surgical Oncology 03/17/17 Shiloh Beck MD [address] [place] [address] [email or web address] Hematology and Oncology 12/30/17 documented as of this encounter Additional Source Comments The information contained in this document represents components of the legal health record. It is not the complete legal health record.[facility]
--- OUTSIDE RECORDS SUMMARY | 2024-11-03 11:50 | XMS_ITS | Encounter Summary ---
Author Organization [facility] Address [address] [facility] [address] [place] [address] Phone Care Team Providers Care County Manager Name Role Phone Alban Abrams MD Primary Care Provider [phone] Self-Referred, Patient Unavailable Unavailab Jair Rodriguez MD, PhD Unavailable [phone] Jair Gonzalez MD, PhD Unavailable [phone] Raymon Norman MD Unavailable [phone] Shiloh Beck MD Unavailable [phone] Encounter Details Date Type Department Care Team (Late st Contact Info) Description 05/26/2023 Procedure Pass [facility], [place] [address] [place] [address] Social History Tobacco Use Types Packs/Day Years [...] Contact Info) Description 10/12/2024 Procedure Pass [facility] Imaging Department, [facility], [place] [address] [facility], Floor [address]1 [place] [address] 10/12/2024 Procedure Pass [facility] Imaging Department, [facility], [place] [address] [facility], [facility] [place] [address] 01/11/2025 6:45 AM EST Blood Draw [facility] Imaging Department, [facility], Imaging Fcgrb-vn-Hjlw [address] [place] [address], Floor [address]1 [place] [address] Jair Gonzalez MD, PhD [address] [place] [phone] Samm@[email or web address] 01/11/2025 8:40 AM EST Appointment [facility] Imaging Department, [facility], [place] [address] [facility], [facility] [address] [place] [address] Jair Gonzalez MD, PhD [address] [place] [phone] Samm@[facility] 01/11/2025 10:30 AM EST Office Visit [facility], [address], 10th [place] [address] Jair Gonzalez MD, PhD [address] [place] [address] Samm@d [facility] documented as of this encounter Visit Diagnoses Not on filedocumented in this encounter Care Teams County Manager Relationship Specialty Start Date End Date Alban Abrams MD [address] [place] [address] [address] PCP - General Internal Medicine 02/17/17 Self-Referred, Patient Referring Physician 02/17/17 Jair Gonzalez MD, PhD [address] [place] [address] [email or web address] Primary Oncologist Oncology 02/17/17 Jair Gonzalez MD, PhD [address] [place] [address] Samm@[email or web address] Primary Oncologist Oncology 02/17/17 Raymon Norman MD [address] [place] [address] [email or web address] Primary Oncologist Surgical Oncology 03/17/17 Shiloh Beck MD [address] [place] [address] [email or web address] Hematology and Oncology 12/30/17 documented as of this encounter Additional Source Comments The information contained in this document represents components of the legal health record. It is not the complete legal health record.[facility]
--- OUTSIDE RECORDS SUMMARY | 2024-11-03 11:50 | XMS_ITS | Encounter Summary ---
Author Organization [facility] Address [address] [facility] [address] [place] [address] Phone Care Team Providers Care Journalism Internship Name Role Phone Alban Abrams MD Primary Care Provider [phone] Self-Referred, Patient Unavailable Unavailab Jair Rodriguez MD, PhD Unavailable [phone] Jair Gonzalez MD, PhD Unavailable [phone] Raymon Norman MD Unavailable [phone] Shiloh Beck MD Unavailable [phone] Encounter Details Date Type Department Care Team (Late st Contact Info) Description 04/02/2022 Procedure Pass [facility] Imaging Department, [facility] [place] [address] [facility], Floor L1 [place] [address] Social History Tobacco Use Types Packs/Day Years [...] [facility] Imaging Department, [facility], [place] [address] [facility], Floor L1 [place] [address] 10/12/2024 Procedure Pass [facility] Imaging Department, [facility], [place] [address] [facility], Floor [address]1 [place] [address] 01/11/2025 6:45 AM EST Blood Draw [facility] Imaging Department, [facility], Imaging Kzjts-nj-Vyvw [address] [facility], Floor [address]1 [place] [address] Jair Gonzalez MD, PhD [address] [place] [address] Samm@[email or web address] 01/11/2025 8:40 AM EST Appointment [facility] Imaging Department, [facility], [place] [address] [facility], Floor L1 [place] [address] Jair Gonzalez MD, PhD [address] [place] [address] Samm@d [email or web address] 01/11/2025 10:30 AM EST Office Visit [facility], [address], 10th [place] [address] Jair Gonzalez MD, PhD [address] [place] [phone] Samm@d [email or web address] documented as of this encounter Visit Diagnoses Not on filedocumented in this encounter Care Teams Journalism Internship Relationship Specialty Start Date End Date Alban Abrams MD [address] [place] [address] [place] [address] PCP - General Internal Medicine 02/17/17 Self-Referred, Patient Referring Physician 02/17/17 Jair Gonzalez MD, PhD 450 [place] [address] [email or web address] Primary Oncologist Oncology 02/17/17 Jair Gonzalez MD, PhD [address] [place] [address] [email or web address] Primary Oncologist Oncology 02/17/17 Raymon Norman MD [address] [place] [address] [email or web address] u Primary Oncologist Surgical Oncology 03/17/17 Shiloh Beck MD [address] [place] [address] [email or web address] Hematology and Oncology 12/30/17 documented as of this encounter Additional Source Comments The information contained in this document represents components of the legal health record. It is not the complete legal health record.[facility]
--- OUTSIDE RECORDS SUMMARY | 2024-11-03 11:50 | XMS_ITS | Encounter Summary ---
Author Organization [facility] Address [address] [facility] [address] [facility] [address] [place] [address] Phone Care Team Providers Care Quality Control Industrial Engineer Name Role Phone Alban Abrams MD Primary Care Provider [phone] Self-Referred, Patient Unavailable Unavailab Jair Rodriguez MD, PhD Unavailable [phone] Jair Gonzalez MD, PhD Unavailable [phone] Raymon Norman MD Unavailable [phone] Shiloh Beck MD Unavailable [phone] Encounter Details Date Type Department Care Team (Late st Contact Info) Description 05/26/2023 Procedure Pass [facility] [address] [place] [address] Social History Tobacco Use Types Packs/Day Years [...] Procedure Pass [facility] Imaging Department, [facility], [place] [address] [facility], Floor L1 [place] [address] 10/12/2024 Procedure Pass [facility] Imaging Department, [facility], [place] [address] [facility], [facility] L1 [place] [address] 01/11/2025 6:45 AM EST Blood Draw [facility] Imaging Department, [facility], Imaging Igxak-ks-Fmgr [address] [place] [address], Floor [address]1 [place] [address] Jair Gonzalez MD, PhD [address] [place] [address] Samm@[email or web address] 01/11/2025 8:40 AM EST Appointment [facility] Imaging Department, [facility], [place] [address] [facility], [facility] L1 [place] [address] Jair Gonzalez MD, PhD [address] [place] [phone] Samm@[email or web address] 01/11/2025 10:30 AM EST Office Visit [facility], [address], 10th [place] [address] Jair Gonzalez MD, PhD [address] [place] [phone] Samm@d [email or web address] documented as of this encounter Visit Diagnoses Not on filedocumented in this encounter Care Teams Quality Control Industrial Engineer Relationship Specialty Start Date End Date Alban Abrams MD [address] [place] [address] [address] PCP - General Internal Medicine 02/17/17 Self-Referred, Patient Referring Physician 02/17/17 Jair Gonzalez MD, PhD [address] [place] [address] Samm@[email or web address] Primary Oncologist Oncology 02/17/17 Jair Gonzalez MD, PhD [address] [place] [address] Samm@[email or web address] Primary Oncologist Oncology 02/17/17 Raymon Norman MD [address] [place] [address] [email or web address] Primary Oncologist Surgical Oncology 03/17/17 Shiloh Beck MD [address] [place] [phone] [email or web address] Hematology [facility] Oncology 12/30/17 documented as of this encounter Additional Source Comments The information contained in this document represents components of the legal health record. It is not the complete legal health record.[facility]
--- OUTSIDE RECORDS SUMMARY | 2024-11-03 11:50 | XMS_ITS | Encounter Summary ---
Author Organization [facility] Address [address] [facility] [address] [place] [address] Phone Care Team Providers Care Research Programmer Name Role Phone Alban Abrams MD Primary Care Provider [phone] Self-Referred, Patient Unavailable Unavailab Jair Rodriguez MD, PhD Unavailable [phone] Jair Gonzalez MD, PhD Unavailable [phone] Raymon Norman MD Unavailable Shiloh Beck MD Unavailable [phone] Encounter Details Date Type Department Care Team (Late st Contact Info) Description 08/11/2023 Procedure Pass [facility] [address] [place] [address] Social History Tobacco Use Types Packs/Day Years [...] Info) Description 10/12/2024 Procedure Pass [facility] Imaging Department, [facility], [place] [address] [facility], Floor L1 [place] [address] 10/12/2024 Procedure Pass [facility] Imaging Department, [facility], [place] [address] [facility], [facility] L1 [place] [address] 01/11/2025 6:45 AM EST Blood Draw [facility] Imaging Department, [facility], Imaging Imnje-qe-Qdup [address] [place] [address], Floor L1 [place] [address] Jair Gonzalez MD, PhD [address] [place] [phone] Samm@[email or web address] 01/11/2025 8:40 AM EST Appointment [facility] Imaging Department, [facility], [place] [address] [facility], [facility] L1 [place] [address] Jair Gonzalez MD, PhD [address] [place] [address] Samm@[email or web address] 01/11/2025 10:30 AM EST Office Visit [facility], [address], 10th [place] [address] Jair Gonzalez MD, PhD [address] [place] [address] Samm@d [facility] documented as of this encounter Visit Diagnoses Not on filedocumented in this encounter Care Teams Research Programmer Relationship Specialty Start Date End Date Alban Abrams MD [address] [place] [address] [address] PCP - General Internal Medicine 02/17/17 Self-Referred, Patient Referring Physician 02/17/17 Jair Gonzalez MD, PhD 450 [place] [address] Samm@[email or web address] Primary Oncologist Oncology 02/17/17 Jair Gonzalez MD, PhD [address] [place] [address] Samm@[email or web address] Primary Oncologist Oncology 02/17/17 Raymon Norman MD [address] [place] [address] [email or web address] Primary Oncologist Surgical Oncology 03/17/17 Shiloh Beck MD [address] [place] [address] [email or web address] Hematology and Oncology 12/30/17 documented as of this encounter Additional Source Comments The information contained in this document represents components of the legal health record. It is not the complete legal health record.[facility]
--- OUTSIDE RECORDS SUMMARY | 2024-11-03 11:50 | XMS_ITS | Encounter Summary ---
Author Organization [facility] Address [address] [facility] [address] [place] [address] Phone Care Team Providers Care Aeronautics Commission Director Name Role Phone Alban Abrams MD Primary Care Provider [phone] Self-Referred, Patient Unavailable Unavailab Jair Rodriguez MD, PhD Unavailable [phone] Jair Gonzalez MD, PhD Unavailable [phone] Raymon Norman MD Unavailable [phone] Shiloh Beck MD Unavailable Encounter Details Date Type Department Care Team (Late st Contact Info) Description 03/11/2017 Procedure Pass [facility] OUTSIDE IMG [address] [place] [address] Social History Tobacco Use Types Packs/Day Years [...] Pass [facility] Imaging Department, [facility] [place], [place] [address] [facility], Floor L1 [place] [address] 10/12/2024 Procedure Pass [facility] Imaging Department, [facility], [place] [address] [facility], [facility] L1 [place] [address] 01/11/2025 6:45 AM EST Blood Draw [facility] Imaging Department, [facility], Imaging Sohfw-tp-Zshq [address] [facility], Floor L1 [place] [address] Jair Gonzalez MD, PhD [address] [place] [address] Samm@[email or web address] 01/11/2025 8:40 AM EST Appointment [facility] Imaging Department, [facility], [place] [address] [facility], Floor [address]1 [place] [address] Jair Gonzalez MD, PhD [address] [place] [address] Samm@d [facility] 01/11/2025 10:30 AM EST Office Visit [facility], [address], 10th [place] [address] Jair Gonzalez MD, PhD [address] [place] [address] [email or web address] [email or web address] documented as of this encounter Visit Diagnoses Not on filedocumented in this encounter Care Teams Aeronautics Commission Director Relationship Specialty Start Date End Date Alban Abrams MD [address] [place] [address] [place] [address] PCP - General Internal Medicine 02/17/17 Self-Referred, Patient Referring Physician 02/17/17 Jair Gonzalez MD, PhD [address] [place] [address] Samm@[email or web address] Primary Oncologist Oncology 02/17/17 Jair Gonzalez MD, PhD [address] [place] [address] Samm@[email or web address] Primary Oncologist Oncology 02/17/17 Raymon Norman MD [address] [place] [address] [email or web address] Primary Oncologist Surgical Oncology 03/17/17 Shiloh Beck MD 5 [place] [address] [email or web address] Hematology and Oncology 12/30/17 documented as of this encounter Additional Source Comments The information contained in this document represents components of the legal health record. It is not the complete legal health record.[facility]
--- OUTSIDE RECORDS SUMMARY | 2024-11-03 11:50 | XMS_ITS | Encounter Summary ---
Author Organization [facility] Address [address] [employer] [facility] [address] [place] [address] Phone Care Team Providers Care Customer Sales Service Manager Name Role Phone Alban Abrams MD Primary Care Provider [phone] Self-Referred, Patient Unavailable Unavailab Jair Rodriguez MD, PhD Unavailable [phone] Jair Gonzalez MD, PhD Unavailable [phone] Raymon Norman MD Unavailable [phone] Shiloh Beck MD Unavailable Encounter Details Date Type Department Care Team (Late st Contact Info) Description 10/03/2019 Procedure Pass [facility], [facility] [place], [place] [address] [facility], Floor [address]1 [place] [address] Social History Tobacco Use Types Packs/Day Years [...] st Contact Info) Description 10/12/2024 Procedure Pass [facility] Imaging Department, [facility], [place] [address] [facility], Floor [address]1 [place] [address] 10/12/2024 Procedure Pass [facility] Imaging Department, [facility] [place] [address] [facility], Floor [address]1 [place] [address] 01/11/2025 6:45 AM EST Blood Draw [facility] Imaging Department, [facility], Imaging Iwteo-at-Vyox [address] [facility], Floor [address]1 [place] [address] Jair Gonzalez MD, PhD [address] [place] [address] Samm@d [email or web address] 01/11/2025 8:40 AM EST Appointment [facility] Imaging Department, [facility], [place] [address] [facility], Floor [address]1 [place] [address] Jair Gonzalez MD, PhD [address] [place] [address] Samm@d [email or web address] 01/11/2025 10:30 AM EST Office Visit [facility], [address], 10th [place] [address] Jair Gonzalez MD, PhD [address] [place] [address] Samm@d [facility] documented as of this encounter Visit Diagnoses Not on filedocumented in this encounter Care Teams Customer Sales Service Manager Relationship Specialty Start Date End Date Alban Abrams MD [address] [place] [address] [place] [address] PCP - General Internal Medicine 02/17/17 Self-Referred, Patient Referring Physician 02/17/17 Jair Gonzalez MD, PhD 450 [place] [address] [email or web address] Primary Oncologist Oncology 02/17/17 Jair Gonzalez MD, PhD 450 [place] [address] [email or web address] Primary Oncologist Oncology 02/17/17 Raymon Norman MD [address] [place] [address] [email or web address] Primary Oncologist Surgical Oncology 03/17/17 Shiloh Beck MD [address] [place] [address] [email or web address] Hematology and Oncology 12/30/17 documented as of this encounter Additional Source Comments The information contained in this document represents components of the legal health record. It is not the complete legal health record.[facility]
--- OUTSIDE RECORDS SUMMARY | 2024-11-03 11:50 | XMS_ITS | Encounter Summary ---
Author Organization [facility] Address [address] [facility] [address] [place] [address] Phone Care Team Providers Care Back Office Medical Assistant Name Role Phone Alban Abrams MD Primary Care Provider [phone] Self-Referred, Patient Unavailable Unavailab Jair Rodriguez MD, PhD Unavailable [phone] Jair Gonzalez MD, PhD Unavailable [phone] Raymon Norman MD Unavailable Shiloh Beck MD Unavailable [phone] Encounter Details Date Type Department Care Team (Late st Contact Info) Description 12/15/2022 Procedure Pass [facility] Periop [address] [place] [address] Social History Tobacco Use Types Packs/Day Years [...] 11:00 PM EDT Orly Milton RN * [place] Suicide Severity Rating Scale (Screener/Recent Self-Report) Question [...] Info) Description 10/12/2024 Procedure Pass [facility] Imaging Department, [facility], [place] [address] [facility], Floor [address]1 [place] [address] 10/12/2024 Procedure Pass [facility] Imaging Department, [facility], [place] [address] [facility], Floor [address]1 [place] [address] 01/11/2025 6:45 AM EST Blood Draw [facility] Imaging Department, [facility], Imaging Uflwp-yg-Besi [address] [facility], Floor [address] [place] [address] Jair Gonzalez MD, PhD 450 [place] [address] [email or web address] 01/11/2025 8:40 AM EST Appointment [facility] Imaging Department, [facility], [place] [address] [facility], Floor [address]1 [place] [address] Jair Gonzalez MD, PhD 450 [place] [address] [email or web address]@d [email or web address] 01/11/2025 10:30 AM EST Office Visit [facility], [employer] [facility] [place] [address] [facility], 10th [place] [address] Jair Gonzalez MD, PhD [address] [place] [address] [email or web address]@d [email or web address] documented as of this encounter Visit Diagnoses Not on filedocumented in this encounter Care Teams Back Office Medical Assistant Relationship Specialty Start Date End Date Alban Abrams MD [address] [place] [address] [place] [address] PCP - General Internal Medicine 02/17/17 Self-Referred, Patient Referring Physician 02/17/17 Jair Gonzalez MD, PhD [address] [place] [address] [email or web address] Primary Oncologist Oncology 02/17/17 Jair Gonzalez MD, PhD [address] [place] [address] Samm@[email or web address] Primary Oncologist Oncology 02/17/17 Raymon Norman MD [address] [place] [place] [address] [email or web address] Primary Oncologist Surgical Oncology 03/17/17 Shiloh Beck MD [address] [place] [address] [email or web address] Hematology and Oncology 12/30/17 documented as of this encounter Additional Source Comments The information contained in this document represents components of the legal health record. It is not the complete legal health record.[facility]
--- OUTSIDE RECORDS SUMMARY | 2024-11-03 11:50 | XMS_ITS | Encounter Summary ---
Author Organization [facility] Address [address] [facility] [address] [place] [address] Phone Care Team Providers Care Job Analyst Name Role Phone Alban Abrams MD Primary Care Provider [phone] Self-Referred, Patient Unavailable Unavailab Jair Rodriguez MD, PhD Unavailable [phone] Jair Gonzalez MD, PhD Unavailable Raymon Norman MD Unavailable [phone] Shiloh Beck MD Unavailable [phone] Reason for Referral * MRI/CAT Scan - Closed Specialty Diagnoses / Procedures Referred By Alessandra t Referred To Contact Radiology Diagnoses Liver lesion Procedures CT Abdomen/Pelvis CT Abdomen Only (No Pelvis) CHG CT SCAN OF ABDOMEN COMBO CHG CT SCAN,ABDOMENT AND PELVIS,W CONTRAST Nikos Mendez MD Phone: tel: fax: mailto:[email or web address] Referral ID Status Reason Start Date Expiration Date Visits Re quested Visits Authorized [id number] Closed 08/30/2023 02/26/2024 1 1 Encounter Details Date Type Department Care Team (Late Contact Info) Description 08/30/2023 Ancillary Orders [facility] Radiology [facility] [address] [facility], 3rd Floor, [place] [address] Nikos Mendez MD [address] [place] [address] [email or web address] Liver lesion (Primary Dx) Social History Tobacco [...] (Late Contact Info) Description 10/12/2024 Procedure Pass [facility] Imaging Department, [facility] [place] [address] [facility], Floor [address]1 [place] [address] 10/12/2024 Procedure Pass [facility] Imaging Department, [facility] [place], [place] [address] [facility], Floor [address]1 [place] [address] 01/11/2025 6:45 AM EST Blood Draw [facility] Imaging Department, [facility], Imaging Rblnk-gy-Civi [address] [facility], Floor [address] [place] [address] Jair Gonzalez MD, PhD 450 [place] [address] Samm@[email or web address] 01/11/2025 8:40 AM EST Appointment [facility] Imaging Department, [facility] [address] [facility], Floor [address]1 [place] [address] Jair Gonzalez MD, PhD 450 [place] [address] Samm@[email or web address] 01/11/2025 10:30 AM EST Office Visit [facility], [facility] 450 [facility], 10th [place] [address] Jair Gonzalez MD, PhD [address] [place] [address] [email or web address] documented as of this encounter Results * [...] liver documented in this encounter Care Teams Job Analyst Relationship Specialty Start Date End Date Alban Abrams MD [address] [place] [address] [place] [address] PCP - General Internal Medicine 02/17/17 Self-Referred, Patient Referring Physician 02/17/17 Jari Gonzalez MD, PhD 450 [place] [address] [email or web address] Primary Oncologist Oncology 02/17/17 Jair Gonzalez MD, PhD 450 [place] [address] Samm@[email or web address] Primary Oncologist Oncology 02/17/17 Raymon Norman MD [address] [place] [address] [email or web address] Primary Oncologist Surgical Oncology 03/17/17 Shiloh Beck MD [address] [place] [address] Hematology and Oncology 12/30/17 documented as of this encounter Additional Source Comments The information contained in this document represents components of the legal health record. It is not the complete legal health record.[facility]
--- OUTSIDE RECORDS SUMMARY | 2024-11-03 11:50 | XMS_ITS | Encounter Summary ---
Author Organization [facility] Address [address] [facility] [address] [place] [address] Phone Care Team Providers Care Stoker Erector And Servicer Name Role Phone Alban Abrams MD Primary Care Provider [phone] Self-Referred, Patient Unavailable Unavailab Jair Rodriguez MD, PhD Unavailable [phone] Jair Gonzalez MD, PhD Unavailable [phone] Raymon Norman MD Unavailable [phone] Shiloh Beck MD Unavailable [phone] Encounter Details Date Type Department Care Team (Late st Contact Info) Description 10/24/2020 Procedure Pass [facility] [place] [facility], [place] [address] [facility] 4th [place] [address] Social History Tobacco Use Types Packs/Day Years [...] Info) Description 10/12/2024 Procedure Pass [facility] Imaging Department, [facility] [place] [address] [facility], Floor [address]1 [place] [address] 10/12/2024 Procedure Pass [facility] Imaging Department, [facility] [address] [facility], Floor [address]1 [place] [address] 01/11/2025 6:45 AM EST Blood Draw [facility] Imaging Department, [facility], Imaging Entts-iv-Lljo [address] [facility], Floor [address]1 [place] [address] Jair Gonzalez MD, PhD [address] [place] [address] Samm@[email or web address] 01/11/2025 8:40 AM EST Appointment [facility] Imaging Department, [facility] [address] [facility], Floor [address]1 [place] [address] Jair Gonzalez MD, PhD [address] [place] [address] Samm@d [email or web address] 01/11/2025 10:30 AM EST Office Visit [facility], [address], 10th [place] [address] Jair Gonzalez MD, PhD [address] [place] [address] [email or web address] documented as of this encounter Visit Diagnoses Not on filedocumented in this encounter Care Teams Stoker Erector And Servicer Relationship Specialty Start Date End Date Alban Abrams MD [address] [place] [address] [place] [address] PCP - General Internal Medicine 02/17/17 Self-Referred, Patient Referring Physician 02/17/17 Jair Gonzalez MD, PhD 450 [place] [address] Samm@[email or web address] Primary Oncologist Oncology 02/17/17 Jair Gonzalez MD, PhD 450 [place] [address] Samm@[email or web address] Primary Oncologist Oncology 02/17/17 Raymon Norman MD [address] [place] [address] [email or web address] Primary Oncologist Surgical Oncology 03/17/17 Shiloh Beck MD [address] [place] [address] [email or web address] Hematology and Oncology 12/30/17 documented as of this encounter Additional Source Comments The information contained in this document represents components of the legal health record. It is not the complete legal health record.[facility]
--- OUTSIDE RECORDS SUMMARY | 2024-11-03 11:50 | XMS_ITS | Encounter Summary ---
Author Organization [facility] Address [address] [employer] [facility] [address] [place] [address] Phone Care Team Providers Care Food Beverage Supervisor Name Role Phone Alban Abrams MD Primary Care Provider [phone] Self-Referred, Patient Unavailable Unavailab Jair Rodriguez MD, PhD Unavailable [phone] Jair Gonzalez MD, PhD Unavailable [phone] Raymon Norman MD Unavailable [phone] Shiloh Beck MD Unavailable [phone] Encounter Details Date Type Department Care Team (Late st Contact Info) Description 10/03/2019 Procedure Pass [facility] Imaging Department, [facility] [place], [place] [address] [facility], Floor [address]1 [place] [address] Social History Tobacco Use Types Packs/Day Years [...] [facility], [facility] [place] [address] [facility], Floor [address] [place] [address] 10/12/2024 Procedure Pass [facility] Imaging Department, [facility] [place] [address] [facility], Floor [address] [place] [address] 01/11/2025 6:45 AM EST Blood Draw [facility] Imaging Department, [facility], Imaging Cqonq-kb-Riyv [address] [facility], Floor [address] [place] [address] Jair Gonzalez MD, PhD [address] [place] [address] Samm@d [email or web address] 01/11/2025 8:40 AM EST Appointment [facility] Department, [facility] [place] [address] [facility], Floor [address]1 [place] [address] Jair Gonzalez MD, PhD [address] [place] [address] Samm@d [email or web address] 01/11/2025 10:30 AM EST Office Visit [facility], [address], 10th [place] [address] Jair Gonzalez MD, PhD [address] [place] [address] Samm@d [email or web address] documented as of this encounter Visit Diagnoses Not on filedocumented in this encounter Care Teams Food Beverage Supervisor Relationship Specialty Start Date End Date Alban Abrams MD [address] [place] [address] [place] [address] PCP - General Internal Medicine 02/17/17 Self-Referred, Patient Referring Physician 02/17/17 Jair Gonzalez MD, PhD 450 [place] [address] [email or web address] Primary Oncologist Oncology 02/17/17 Jair Gonzalez MD, PhD 450 [place] [address] [email or web address] Primary Oncologist Oncology 02/17/17 Raymon Norman MD [address] [place] [address] [email or web address] Primary Oncologist Surgical Oncology 03/17/17 Shiloh Beck MD [address] [place] [address] [email or web address] Hematology and Oncology 12/30/17 documented as of this encounter Additional Source Comments The information contained in this document represents components of the legal health record. It is not the complete legal health record.[facility]
--- OUTSIDE RECORDS SUMMARY | 2024-11-03 11:50 | XMS_ITS | Encounter Summary ---
Author Organization [facility] Address [address] [facility] [address] [place] [address] Phone Care Team Providers Care Compensation And Benefits Administrator Name Role Phone Alban Abrams MD Primary Care Provider Self-Referred, Patient Unavailable Unavailab Jair Rodriguez MD, PhD Unavailable [phone] Jair Gonzalez MD, PhD Unavailable [phone] Raymon Norman MD Unavailable Shiloh Beck MD Unavailable [phone] Encounter Details Date Type Department Care Team (Late st Contact Info) Description 02/09/2023 Procedure Pass [facility] Periop [address] [place] [address] Social History Tobacco Use Types Packs/Day Years [...] 02/09/2023 6:00 PM Ruth Cool RN * [place] Suicide Severity Rating Scale (Screener/Recent Self-Report) Question [...] Procedure Pass [facility] Imaging Department, [facility], [place] [address] [facility], Floor [address]1 [place] [address] 10/12/2024 Procedure Pass [facility] Imaging Department, [facility] [address] [facility], Floor [address]1 [place] [address] 01/11/2025 6:45 AM EST Blood Draw [facility] Imaging Department, [facility], Imaging Fvlgd-sh-Jdcq [address] [facility], Floor [address]1 [place] [address] Jair Gonzalez MD, PhD 450 [place] [address] [email or web address] 01/11/2025 8:40 AM EST Appointment [facility] Imaging Department, [facility], [place] [address] [facility], Floor [address] [place] [address] Jair Gonzalez MD, PhD 450 [place] [address] Samm@d [email or web address] 01/11/2025 10:30 AM EST Office Visit [facility], [facility] [address] [facility], 10th [place] [address] Jair Gonzalez MD, PhD 450 [place] [address] Samm@d [facility] documented as of this encounter Visit Diagnoses Not on filedocumented in this encounter Care Teams Compensation And Benefits Administrator Relationship Specialty Start Date End Date Alban Abrams MD [address] [place] [address] [place] [address] PCP - General Internal Medicine 02/17/17 Self-Referred, Patient Referring Physician 02/17/17 Jair Gonzalez MD, PhD [address] [place] [address] [email or web address] Primary Oncologist Oncology 02/17/17 Jair Gonzalez MD, PhD [address] [place] [address] Samm@[email or web address] Primary Oncologist Oncology 02/17/17 Raymon Norman MD [address] [place] [address] [email or web address] Primary Oncologist Surgical Oncology 03/17/17 Shiloh Beck MD [address] [place] [address] [email or web address] Hematology and Oncology 12/30/17 documented as of this encounter Additional Source Comments The information contained in this document represents components of the legal health record. It is not the complete legal health record.[facility]
--- OUTSIDE RECORDS SUMMARY | 2024-11-03 11:50 | XMS_ITS | Encounter Summary ---
Author Organization [facility] Address [address] [place] [address] Phone Care Team Providers Care Venipuncturist Name Role Phone Alban Abrams MD Primary Care Provider [phone] Self-Referred, Patient Unavailable Unavailab Jair Rodriguez MD, PhD Unavailable [phone] Jair Gonzalez MD, PhD Unavailable [phone] Raymon Norman MD Unavailable [phone] Shiloh Beck MD Unavailable [phone] Encounter Details Date Type Department Care Team (Late st Contact Info) Description 11/11/2022 Procedure Pass [facility] 75 [place] [address] Social History Tobacco Use Types Packs/Day Years [...] st Contact Info) Description 10/12/2024 Procedure Pass [facility] Imaging Department, [facility], [place] [address] [facility], Floor [address]1 [place] [address] 10/12/2024 Procedure Pass [facility] Imaging Department, [facility], [place] [address] [facility], [facility] [address]1 [place] [address] 01/11/2025 6:45 AM EST Blood Draw [facility] Imaging Department, [facility], Imaging Dzlty-mp-Vtjc [address] [place] [address], [facility] L1 [place] [address] Jair Gonzalez MD, PhD [address] [place] [phone] Samm@[email or web address] 01/11/2025 8:40 AM EST Appointment [facility] Imaging Department, [facility], [place] [address] [facility], [facility] L1 [place] [address] Jair Gonzalez MD, PhD [address] [place] [address] Samm@[email or web address] 01/11/2025 10:30 AM EST Office Visit [facility], [address], 10th [place] [address] Jair Gonzalez MD, PhD [address] [place] [phone] Samm@d [email or web address] documented as of this encounter Visit Diagnoses Not on filedocumented in this encounter Care Teams Venipuncturist Relationship Specialty Start Date End Date Alban Abrams MD [address] [place] [address] [place] [address] PCP - General Internal Medicine 02/17/17 Self-Referred, Patient Referring Physician 02/17/17 Jair Gonzalez MD, PhD 450 [place] [address] [email or web address] Primary Oncologist Oncology 02/17/17 Jari Gonzalez MD, PhD 450 [place] [address] [email or web address] Primary Oncologist Oncology 02/17/17 Raymon Norman MD [address] [place] [address] [email or web address] Primary Oncologist Surgical Oncology 03/17/17 Shiloh Beck MD [address] [place] [address] [email or web address] [employer] [employer] Hematology and Oncology 12/30/17 documented as of this encounter Additional Source Comments The information contained in this document represents components of the legal health record. It is not the complete legal health record.[facility]"
--- OUTSIDE RECORDS SUMMARY | 2024-11-03 11:50 | XMS_ITS | Encounter Summary ---
Author Organization [facility] Address [address] [place] [address] Phone Care Team Providers Care Site Operations Manager Name Role Phone Alban Abrams MD Primary Care Provider Self-Referred, Patient Unavailable Unavailab Jair Rodriguez MD, PhD Unavailable [phone] Jair Gonzalez MD, PhD Unavailable [phone] Raymon oNrman MD Unavailable [phone] Shiloh Beck MD Unavailable [phone] Encounter Details Date Type Department Care Team (Late st Contact Info) Description 01/05/[address] [facility] [address] [place] [address] Social History Tobacco Use Types Packs/Day Years [...] st Contact Info) Description 10/12/2024 Procedure Pass [facility] Imaging Department, [facility], [place] [address] [facility], [place] [address]1 [place] [address] 10/12/2024 Procedure Pass [facility] Imaging Department, [facility] [place] [address] [facility], [place] [address] [place] [address] 01/11/2025 6:45 AM EST Blood Draw [facility] Imaging Department, [facility], Imaging Twwom-je-Rech [address] [facility], [address] [place] [address] Jair Gonzalez MD, PhD [address] [place] [address] [email or web address] 01/11/2025 8:40 AM EST Appointment [facility] Imaging Department, [facility], [place] [address] [facility], [place] [address] [place] [address] Jair Gonzalez MD, PhD [address] [place] [address] Samm@d [email or web address] 01/11/2025 10:30 AM EST Office Visit [facility], [facility] [address] [facility], 10th [place] [address] Jair Gonzalez MD, PhD [address] [place] [address] [email or web address] documented as of this encounter Visit Diagnoses Not on filedocumented in this encounter Care Teams Site Operations Manager Relationship Specialty Start Date End Date Alban Abrams MD [address] [place] [address] [place] [address] PCP - General Internal Medicine 02/17/17 Self-Referred, Patient Referring Physician 02/17/17 Jair Gonzalez MD, PhD [address] [place] [address] [email or web address] Primary Oncologist Oncology 02/17/17 Jair Gonzalez MD, PhD [address] [place] [address] [email or web address] Primary Oncologist Oncology 02/17/17 Raymon Norman MD [address] [place] [address] [email or web address] Primary Oncologist Surgical Oncology 03/17/17 Shiloh Beck MD [address] [place] [address] [email or web address]) Hematology and Oncology 12/30/17 documented as of this encounter Additional Source Comments The information contained in this document represents components of the legal health record. It is not the complete legal health record.[facility]
--- OUTSIDE RECORDS SUMMARY | 2024-11-03 11:51 | XMS_ITS | Encounter Summary ---
Author Organization [facility] Address [address] [facility] [address] [place] [address] Phone Care Team Providers Care Slab Lifting Engineer Name Role Phone Alban Abrams MD Primary Care Provider [phone] Self-Referred, Patient Unavailable Unavailab Jair Rodriguez MD, PhD Unavailable [phone] Jair Gonzalez MD, PhD Unavailable [phone] Raymon Norman MD Unavailable Shiloh Beck MD Unavailable [phone] Encounter Details Date Type Department Care Team (Late Contact Info) Description 03/13/2021 Procedure Pass [facility] Periop [address] [place] [address] Social History Tobacco Use Types Packs/Day Years [...] st Contact Info) Description 10/12/2024 Procedure Pass [facility] Imaging Department, [facility], [place] [address] [facility], Floor [address]1 [place] [address] 10/12/2024 Procedure Pass [facility] Imaging Department, [facility], [place] [address] [facility], Floor [address]1 [place] [address] 01/11/2025 6:45 AM EST Blood Draw [facility] Imaging Department, [facility], Imaging Abphp-rk-Rjau [address] [facility], Floor [address]1 [place] [address] Jair Gonzalez MD, PhD [address] [place] [address] Samm@d [email or web address] 01/11/2025 8:40 AM EST Appointment [facility] Imaging Department, [facility], [place] [address] [facility], Floor [address]1 [place] [address] Jair Gonzalez MD, PhD [address] [place] [address] Samm@d [email or web address] 01/11/2025 10:30 AM EST Office Visit [facility], [address], 10th [place] [address] Jair Gonzalez MD, PhD [address] [place] [address] Samm@d [email or web address] documented as of this encounter Visit Diagnoses Not on filedocumented in this encounter Care Teams Slab Lifting Engineer Relationship Specialty Start Date End Date Alban Abrams MD [address] [place] [address] [place] [address] PCP - General Internal Medicine 02/17/17 Self-Referred, Patient Referring Physician 02/17/17 Jair Gonzalez MD, PhD [address] [place] [address] [email or web address] Primary Oncologist Oncology 02/17/17 Jair Gonzalez MD, PhD [address] [place] [address] [email or web address] Primary Oncologist Oncology 02/17/17 Raymon Noramn MD [address] [place] [address] [email or web address] Primary Oncologist Surgical Oncology 03/17/17 Shiloh Beck MD [address] [place] [address] Hematology and Oncology 12/30/17 documented as of this encounter Additional Source Comments The information contained in this document represents components of the legal health record. It is not the complete legal health record.[facility]
--- OUTSIDE RECORDS SUMMARY | 2024-11-03 11:51 | XMS_ITS | Encounter Summary ---
Author Organization [facility] Address [address] [facility] [address] [place] [address] Phone Care Team Providers Care Poultry Farmer Meat Name Role Phone Alban Abrams MD Primary Care Provider [phone] Self-Referred, Patient Unavailable Unavailab Jair Rodriguez MD, PhD Unavailable [phone] Jair Gonzalez MD, PhD Unavailable [phone] Raymon Norman MD Unavailable [phone] Shiloh Beck MD Unavailable [phone] Encounter Details Date Type Department Care Team (Late Contact Info) Description 04/13/2017 Procedure Pass [facility] Endoscopy Department [address] [place] [address] Social History Tobacco Use Types Packs/Day Years [...] Contact Info) Description 10/12/2024 Procedure Pass [facility] Imaging Department, [facility] [place], [place] [address] [facility], Floor [address]1 [place] [address] 10/12/2024 Procedure Pass [facility] Imaging Department, [facility] [place], [place] [address] [facility], Floor [address] [place] [address] 01/11/2025 6:45 AM EST Blood Draw [facility] Imaging Department, [facility], Imaging Pklic-az-Rpwf [address] [facility], Floor [address]1 [place] [address] Jair Gonzalez MD, PhD [address] [place] [address] [email or web address] 01/11/2025 8:40 AM EST Appointment [facility] Imaging Department, [facility], [place] [address] [facility], Floor [address]1 [place] [address] Jair Gonzalez MD, PhD [address] [place] [phone] Samm@d [email or web address] 01/11/2025 10:30 AM EST Office Visit [facility], [address], 10th [place] [address] Jair Gonzalez MD, PhD [address] [place] [phone] Samm@d [email or web address] documented as of this encounter Visit Diagnoses Not on filedocumented in this encounter Care Teams Poultry Farmer Meat Relationship Specialty Start Date End Date Alban Abrams MD [address] [place] [address] [place] [address] PCP - General Internal Medicine 02/17/17 Self-Referred, Patient Referring Physician 02/17/17 Jair Gonzalez MD, PhD 450 [place] [address] Samm@[email or web address] Primary Oncologist Oncology 02/17/17 Jair Gonzalez MD, PhD [address] [place] [address] Samm@[email or web address] Primary Oncologist Oncology 02/17/17 Raymon Norman MD [address] [place] [address] [email or web address]. u Primary Oncologist Surgical Oncology 03/17/17 Shiloh Beck MD [address] [place] [address] [email or web address] Hematology and Oncology 12/30/17 documented as of this encounter Additional Source Comments The information contained in this document represents components of the legal health record. It is not the complete legal health record.[facility]
--- OUTSIDE RECORDS SUMMARY | 2024-11-03 11:51 | XMS_ITS | Encounter Summary ---
Author Organization [facility] Address [address] [place] [address] Phone Care Team Providers Care Soft Work Wrapper Examiner Name Role Phone Alban Abrams MD Primary Care Provider [phone] Self-Referred, Patient Unavailable Unavailab Jair Rodriguez MD, PhD Unavailable [phone] Jair Gonzalez MD, PhD Unavailable [phone] Raymon Norman MD Unavailable [phone] Shiloh Beck MD Unavailable [phone] Encounter Details Date Type Department Care Team (Late st Contact Info) Description 11/13/2022 Procedure Pass [facility] Imaging Department, [facility] [place] [address] [facility], [address]1 [place] [address] Social History Tobacco Use Types Packs/Day Years [...] 10/12/[address] [facility] Imaging Department, [facility], [place] [address] [facility], [address]1 [place] [address] 10/12/[address] [facility] Imaging Department, [facility] [place] [address] [facility], [address] [place] [address] 01/11/2025 6:45 AM EST [facility] [address] [facility] Imaging Department, [facility], Imaging Jqlvy-st-Sdew [address] [facility], [address]1 [place] [address] Jair Gonzalez MD, PhD [address] [place] [phone] [email or web address] 01/11/2025 8:[address] [facility] Imaging Department, [facility], [place] [address] [facility], [address]1 [place] [address] Jair Gonzalez MD, PhD [address] [place] [phone] [email or web address] 01/11/2025 10:30 AM EST Office Visit [facility], [facility] 450 [facility], 10th [place] [address] Jair Gonzalez MD, PhD 450 [place] [address] [email or web address] documented as of this encounter Visit Diagnoses Not on filedocumented in this encounter Care Teams Soft Work Wrapper Examiner Relationship Specialty Start Date End Date Alban Abrams MD [address] [place] [address] [address] PCP - General Internal Medicine 02/17/17 Self-Referred, Patient Referring Physician 02/17/17 Jair Gonzalez MD, PhD [address] [place] [phone] [email or web address] Primary Oncologist Oncology 02/17/17 Jair Gonzalez MD, PhD [address] [place] [address] [email or web address] Primary Oncologist Oncology 02/17/17 Raymon Norman MD [address] [place] [address] [email or web address] Primary Oncologist Surgical Oncology 03/17/17 Shiloh Beck MD [address] [place] [address] [email or web address] Hematology and Oncology 12/30/17 documented as of this encounter Additional Source Comments The information contained in this document represents components of the legal health record. It is not the complete legal health record.[facility]
--- OUTSIDE RECORDS SUMMARY | 2024-11-03 11:51 | XMS_ITS | Encounter Summary ---
Author Organization [facility] Address [address] [facility] [address] [place] [address] Phone Care Team Providers Care Wheel Inspector Name Role Phone Alban Abrams MD Primary Care Provider Self-Referred, Patient Unavailable Unavailab Jair Rodriguez MD, PhD Unavailable Jair Gonzalez MD, PhD Unavailable [phone] Raymon Norman MD Unavailable [phone] Shiloh Beck MD Unavailable [phone] Encounter Details Date Type Department Care Team (Late st Contact Info) Description 04/15/2017 Transcribe Orders [facility] Echocardiography [address] [place] [address] Riki Lopez MD [address] [facility] 3rd [place] [address] [email or web address] Social History Tobacco Use Types Packs/Day [...] Info) Description 10/12/2024 Procedure Pass [facility] Imaging Department, [facility] [place] [address] [facility], Floor [address]1 [place] [address] 10/12/2024 Procedure Pass [facility] Imaging Department, [facility] [place] [address] [facility], Floor [address]1 [place] [address] 01/11/2025 6:45 AM EST Blood Draw [facility] Imaging Department, [facility], Imaging Avmtu-bf-Fucd [address] [facility], Floor [address]1 [place] [address] Jair Gonzalez MD, PhD [address] [place] [phone] Samm@d [facility] 01/11/2025 8:40 AM EST Appointment [facility] Imaging Department, [facility], [place] [address] [facility], Floor [address]1 [place] [address] Jair Gonzalez MD, PhD [address] [place] [phone] Samm@d [facility] 01/11/2025 10:30 AM EST Office Visit [facility], [facility] [address] [facility], 10th [place] [address] Jair Gonzalez MD, PhD [address] [place] [address] Samm@d [facility] documented as of this encounter Visit Diagnoses Not on filedocumented in this encounter Care Teams Wheel Inspector Relationship Specialty Start Date End Date Alban Abrams MD [address] [place] [address] PCP - General Internal Medicine 02/17/17 Self-Referred, Patient Referring Physician 02/17/17 Jair Gonzalez MD, PhD [address] [place] [address] [email or web address] Primary Oncologist Oncology 02/17/17 Jair Gonzalez MD, PhD [address] [place] [address] Samm@[email or web address] Primary Oncologist Oncology 02/17/17 Raymon Norman MD [address] [place] [address] [email or web address] Primary Oncologist Surgical Oncology 03/17/17 Shiloh Beck MD [address] [place] [address] [email or web address] [employer] Hematology and Oncology 12/30/17 documented as of this encounter Additional Source Comments The information contained in this document represents components of the legal health record. It is not the complete legal health record.[facility]
--- OUTSIDE RECORDS SUMMARY | 2024-11-03 11:51 | XMS_ITS | Encounter Summary ---
Author Organization [facility] Address [address] [place] [address] Phone Care Team Providers Care Pharmacy Teacher Name Role Phone Alban Abrams MD Primary Care Provider [phone] Self-Referred, Patient Unavailable Unavailab Jair Rodriguez MD, PhD Unavailable [phone] Jair Gonzalez MD, PhD Unavailable [phone] Raymon Norman MD Unavailable Shiloh Beck MD Unavailable [phone] Encounter Details Date Type Department Care Team (Late st Contact Info) Description 11/13/2022 Procedure Pass [facility] Imaging Department, [facility] [place] [address] [facility], Floor [address]1 [place] [address] Social History Tobacco Use Types Packs/Day Years [...] Description 10/12/2024 Procedure Pass [facility] Imaging Department, [facility] [place] [address] [facility], Floor [address]1 [place] [address] 10/12/2024 Procedure Pass [facility] Imaging Department, [facility] [place] [address] [facility], [address] [place] [address] 01/11/2025 6:45 AM EST Blood Draw [facility] Imaging Department, [facility], Imaging Jswkw-pi-Lpni [address] [facility], [address] [place] [address] Jair Gonzalez MD, PhD [address] [place] [address] [email or web address] 01/11/2025 8:40 AM EST Appointment [facility] Imaging Department, [facility], [place] [address] [facility], Floor [address]1 [place] [address] Jair Gonzalez MD, PhD [address] [place] [address] Samm@[email or web address] 01/11/2025 10:30 AM EST Office Visit [facility], [facility] [address] [facility], 10th [place] [address] Jair Gonzalez MD, PhD [address] [place] [address] [email or web address] documented as of this encounter Visit Diagnoses Not on filedocumented in this encounter Care Teams Pharmacy Teacher Relationship Specialty Start Date End Date Alban Abrams MD [address] [place] [address] [address] PCP - General Internal Medicine 02/17/17 Self-Referred, Patient Referring Physician 02/17/17 Jair Gonzalez MD, PhD [address] [place] [phone] Samm@[email or web address] Primary Oncologist Oncology 02/17/17 Jair Gonzalez MD, PhD [address] [place] [address] Samm@[email or web address] Primary Oncologist Oncology 02/17/17 Raymon Norman MD [address] [place] [phone] [email or web address] Primary Oncologist Surgical Oncology 03/17/17 Shiloh Beck MD [address] [place] [address] [email or web address] Hematology and Oncology 12/30/17 documented as of this encounter Additional Source Comments The information contained in this document represents components of the legal health record. It is not the complete legal health record.[facility]
--- OUTSIDE RECORDS SUMMARY | 2024-11-03 11:51 | XMS_ITS | Encounter Summary ---
Author Organization [facility] Address [address] [facility] [address] [place] [address] Phone Care Team Providers Care Applied Behavior Specialist Name Role Phone Alban Abrams MD Primary Care Provider Self-Referred, Patient Unavailable Unavailab Jair Rodriguez MD, PhD Unavailable Jair Gonzalez MD, PhD Unavailable [phone] Raymon Norman MD Unavailable [phone] Shiloh Beck MD Unavailable [phone] Encounter Details Date Type Department Care Team (Late st Contact Info) Description 03/31/2017 Prep for Surgery [facility] General & GI Surgery [address] [place] [address] ASB2-3 [place] [address] Mercy Lyles MD [address] [place] [address] Department of Anesthesiology-CWN L1 [place] [address] Social History Tobacco Use Types Packs/Day Years [...] Procedure Pass [facility] Imaging Department, [facility], [place] [address], Floor [address]1 [place] [address] 10/12/2024 Procedure Pass [facility] Imaging Department, [facility], [place] [address] [facility], Floor [address]1 [place] [address] 01/11/2025 6:45 AM EST Blood Draw [facility] Imaging Department, [facility], Imaging Xvmxt-gd-Meys [address], Floor [address]1 [place] [address] Jair Gonzalez MD, PhD [address] [place] [address] Samm@d [facility] 01/11/2025 8:40 AM EST Appointment [facility] Imaging Department, [facility], [place] [address] [facility], Floor [address]1 [place] [address] Jair Gonzalez MD, PhD [address] [place] [phone] Samm@d [email or web address] 01/11/2025 10:30 AM EST Office Visit [facility], [address], 10th [place] [address] Jair Gonzalez MD, PhD [address] [place] [phone] Samm@d [facility] documented as of this encounter Visit Diagnoses Not on filedocumented in this encounter Care Teams Applied Behavior Specialist Relationship Specialty Start Date End Date Alban Abrams MD [address] [place] [address] PCP - General Internal Medicine 02/17/17 Self-Referred, Patient Referring Physician 02/17/17 Jair Gonzalez MD, PhD [address] [place] [address] [email or web address] Primary Oncologist Oncology 02/17/17 Jair Gonzalez MD, PhD [address] [place] [phone] [email or web address] Primary Oncologist Oncology 02/17/17 Raymon Norman MD [address] [place] [address] [email or web address] Primary Oncologist Surgical Oncology 03/17/17 Shiloh Beck MD [address] [place] [address] [email or web address] Hematology and Oncology 12/30/17 documented as of this encounter Additional Source Comments The information contained in this document represents components of the legal health record. It is not the complete legal health record.[facility]
--- OUTSIDE RECORDS SUMMARY | 2024-11-03 11:51 | XMS_ITS | Encounter Summary ---
Author Organization [facility] Address [address] [facility] [address] [place] [address] Phone Care Team Providers Care Construction Project Coordinator Name Role Phone Alban Abrams MD Primary Care Provider [phone] Self-Referred, Patient Unavailable Unavailab Jair Rodriguez MD, PhD Unavailable [phone] Jair Gonzalez MD, PhD Unavailable [phone] Raymon Norman MD Unavailable [phone] Shiloh Beck MD Unavailable [phone] Encounter Details Date Type Department Care Team (Late Contact Info) Description 05/25/2017 Procedure Pass [facility] CT Imaging, Carpenter [address] [place] [address] Social History Tobacco Use Types Packs/Day Years [...] Pass [facility] Imaging Department, [facility], [place] [address] [facility], Floor [address]1 [place] [address] 10/12/2024 Procedure Pass [facility] Imaging Department, [facility], [place] [address] [facility], Floor [address]1 [place] [address] 01/11/2025 6:45 AM EST Blood Draw [facility] Imaging Department, [facility], Imaging Elypw-ty-Ozqz [address] [facility], Floor [address]1 [place] [address] Jair Gonzalez MD, PhD [address] [place] [address] [email or web address] 01/11/2025 8:40 AM EST Appointment [facility] Imaging Department, [facility], [place] [address] [facility], Floor [address]1 [place] [address] Jair Gonzalez MD, PhD [address] [place] [address] Samm@d [email or web address] 01/11/2025 10:30 AM EST Office [facility], [address], 10th [place] [address] Jair Gonzalez MD, PhD [address] [place] [address] Samm@d [email or web address] documented as of this encounter Visit Diagnoses Not on filedocumented in this encounter Care Teams Construction Project Coordinator Relationship Specialty Start Date End Date Alban Abrams MD [address] [place] [address] [place] [address] PCP - General Internal Medicine 02/17/17 Self-Referred, Patient Referring Physician 02/17/17 Jair Gonzalez MD, PhD [address] [place] [address] [email or web address] Primary Oncologist Oncology 02/17/17 Jair Gonzalez MD, PhD [address] [place] [address] Samm@[email or web address] Primary Oncologist Oncology 02/17/17 Raymon Norman MD [address] [place] [address] [email or web address] Primary Oncologist Surgical Oncology 03/17/17 Shiloh Beck MD [address] [place] [address] [email or web address] [facility] On[facility] 12/30/17 documented as of this encounter Additional Source Comments The information contained in this document represents components of the legal health record. It is not the complete legal health record.[facility]
--- OUTSIDE RECORDS SUMMARY | 2024-11-03 11:51 | XMS_ITS | Encounter Summary ---
Author Organization [facility] Address [address] [facility] [address] [place] [address] Phone Care Team Providers Care Air Moving Technician Name Role Phone Alban Abrams MD Primary Care Provider [phone] Self-Referred, Patient Unavailable Unavailab Jair Rodriguez MD, PhD Unavailable [phone] Jair Gonzalez MD, PhD Unavailable [phone] Raymon Norman MD Unavailable [phone] Shiloh Beck MD Unavailable [phone] Encounter Details Date Type Department Care Team (Late st Contact Info) Description 10/10/2020 Procedure Pass [facility] Imaging Department, [facility] [place] [address] [facility], [address]1 [place] [address] Social History Tobacco Use Types Packs/Day Years [...] st Contact Info) Description 10/12/2024 Procedure Pass [facility] Imaging Department, [facility], [place] [address] [facility], Floor [address]1 [place] [address] 10/12/2024 Procedure Pass [facility] Imaging Department, [facility], [place] [address] [facility], [address]1 [place] [address] 01/11/2025 6:45 AM EST Blood Draw [facility] Imaging Department, [facility], Imaging Wtqgn-ku-Bsdr [address] [facility], [address] [place] [address] Jair Gonzalez MD, PhD [address] [place] [address] Samm@[email or web address] 01/11/2025 8:40 AM EST Appointment [facility] Imaging Department, [facility], [place] [address] [facility], [address]1 [place] [address] Jair Gonzalez MD, PhD [address] [place] [address] Samm@d [email or web address] 01/11/2025 10:30 AM EST Office Visit [facility], [address], 10th [place] [address] Jair Gonzalez MD, PhD [address] [place] [address] Samm@d [email or web address] documented as of this encounter Visit Diagnoses Not on filedocumented in this encounter Care Teams Air Moving Technician Relationship Specialty Start Date End Date Alban Abrams MD [address] [place] [address] [place] [address] PCP - General Internal Medicine 02/17/17 Self-Referred, Patient Referring Physician 02/17/17 Jair Gonzalez MD, PhD [address] [place] [address] [email or web address] Primary Oncologist Oncology 02/17/17 Jair Gonzalez MD, PhD [address] [place] [address] Samm@[email or web address] Primary Oncologist Oncology 02/17/17 Raymon Norman MD [address] [place] [address] [email or web address] Primary Oncologist Surgical Oncology 03/17/17 Shiloh Beck MD [address] [place] [address] [email or web address] [facility] On[facility] 12/30/17 documented as of this encounter Additional Source Comments The information contained in this document represents components of the legal health record. It is not the complete legal health record.[facility]
--- OUTSIDE RECORDS SUMMARY | 2024-11-03 11:51 | XMS_ITS | Encounter Summary ---
Author Organization [facility] Address [address] [place] [address] Phone Care Team Providers Care Bank And Savings Securities Trader Name Role Phone Alban Abrams MD Primary Care Provider [phone] Self-Referred, Patient Unavailable Unavailab Jair Rodriguez MD, PhD Unavailable [phone] Jair Gonzalez MD, PhD Unavailable [phone] Raymon Norman MD Unavailable [phone] Shiloh Beck MD Unavailable [phone] Encounter Details Date Type Department Care Team (Late st Contact Info) Description 12/22/2022 Procedure Pass [facility] [address] [place] [address] Social History Tobacco Use Types Packs/Day Years [...] st Contact Info) Description 10/12/2024 Procedure Pass [facility] Imaging Department, [facility], [place] [address] [facility], Floor L1 [place] [address] 10/12/2024 Procedure Pass [facility] Imaging Department, [facility], [place] [address] [facility], [facility] L1 [place] [address] 01/11/2025 6:45 AM EST Blood Draw [facility] Imaging Department, [facility], Imaging Cmplb-yf-Wlox [address] [place] [address], [facility] L1 [place] [address] Jair Gonzalez MD, PhD [address] [place] [address] Samm@[email or web address] 01/11/2025 8:40 AM EST Appointment [facility] Imaging Department, [facility], [place] [address] [facility], [facility] L1 [place] [address] Jair Gonzalez MD, PhD [address] [place] [address] Samm@[email or web address] 01/11/2025 10:30 AM EST Office Visit [facility], [address], 10th [place] [address] Jair Gonzalez MD, PhD [address] [place] [address] Samm@d [email or web address] documented as of this encounter Visit Diagnoses Not on filedocumented in this encounter Care Teams Bank And Savings Securities Trader Relationship Specialty Start Date End Date Alban Abrams MD [address] [place] [address] [facility] [place] [address] PCP - General Internal Medicine 02/17/17 Self-Referred, Patient Referring Physician 02/17/17 Jair Gonzalez MD, PhD [address] [place] [address] [email or web address] Primary Oncologist Oncology 02/17/17 Jair Gonzalez MD, PhD [address] [place] [address] Samm@[email or web address] Primary Oncologist Oncology 02/17/17 Raymon Norman MD [address] [place] [address] [email or web address] Primary Oncologist Surgical Oncology 03/17/17 Shiloh Beck MD [address] [place] [address] [email or web address] On[facility] 12/30/17 documented as of this encounter Additional Source Comments The information contained in this document represents components of the legal health record. It is not the complete legal health record.[facility]
--- OUTSIDE RECORDS SUMMARY | 2024-11-03 11:51 | XMS_ITS | Encounter Summary ---
Author Organization [facility] Address [address] [facility] [place] [address] Phone Care Team Providers Care Seismograph Operator Name Role Phone Alban Abrams MD Primary Care Provider [phone] Self-Referred, Patient Unavailable Unavailab Jair Rodriguez MD, PhD Unavailable [phone] Jair Gonzalez MD, PhD Unavailable [phone] Raymon Norman MD Unavailable [phone] Shiloh Beck MD Unavailable [phone] Encounter Details Date Type Department Care Team (Late Contact Info) Description 02/07/2021 Procedure Pass [facility] [address] [place] [address] Social History Tobacco Use Types Packs/Day Years [...] (Late Contact Info) Description 10/12/2024 Procedure Pass [facility] Imaging Department, [facility], [place] [address] [facility], Floor L1 [place] [address] 10/12/2024 Procedure Pass [facility] Imaging Department, [facility], [place] [address] [facility], Floor [address]1 [place] [address] 01/11/2025 6:45 AM EST Blood Draw [facility] Imaging Department, [facility], Imaging Qizap-cq-Xnah [address] [facility], Floor [address]1 [place] [address] Jair Gonzalez MD, PhD [address] [place] [phone] Samm@[email or web address] 01/11/2025 8:40 AM EST Appointment [facility] Imaging Department, [facility], [place] [address] [facility], Floor [address]1 [place] [address] Jair Gonzalez MD, PhD [address] [place] [phone] Samm@d [email or web address] 01/11/2025 10:30 AM EST Office Visit [facility], [address], 10th [place] [address] Jair Gonzalez MD, PhD [address] [place] [phone] Samm@d [facility] documented as of this encounter Visit Diagnoses Not on filedocumented in this encounter Care Teams Seismograph Operator Relationship Specialty Start Date End Date Alban Abrams MD [address] [place] [address] [place] [address] PCP - General Internal Medicine 02/17/17 Self-Referred, Patient Referring Physician 02/17/17 Jair Gonzalez MD, PhD [address] [place] [address] Samm@[email or web address] Primary Oncologist Oncology 02/17/17 Jair Gonzalez MD, PhD [address] [place] [address] Samm@[email or web address] Primary Oncologist Oncology 02/17/17 Raymon Norman MD [address] [place] [phone] [email or web address] Primary Oncologist Surgical Oncology 03/17/17 Shiloh Beck MD [address] [place] [address] [email or web address] [facility]ology [facility] On[facility] 12/30/17 documented as of this encounter Additional Source Comments The information contained in this document represents components of the legal health record. It is not the complete legal health record.[facility]
--- OUTSIDE RECORDS SUMMARY | 2024-11-03 11:51 | XMS_ITS | Encounter Summary ---
Author Organization [facility] Address [address] [facility] [address] [place] [address] Phone Care Team Providers Care Outdoor Adventure Leader Name Role Phone Alban Abrams MD Primary Care Provider [phone] Self-Referred, Patient Unavailable Unavailab Jair Rodriguez MD, PhD Unavailable [phone] Jair Gonzalez MD, PhD Unavailable [phone] Raymon Norman MD Unavailable Shiloh Beck MD Unavailable [phone] Encounter Details Date Type Department Care Team (Late st Contact Info) Description 04/16/[address] [facility] Periop [address] [place] [address] Social History Tobacco Use Types Packs/Day Years [...] Procedure Pass [facility] Imaging Department, [facility], [place] [address] [facility], Floor [address] [place] [address] 10/12/2024 Procedure Pass [facility] Imaging Department, [facility], [place] [address] [facility], Floor [address]1 [place] [address] 01/11/2025 6:45 AM EST Blood Draw [facility] Imaging Department, [facility], Imaging Skyof-hy-Nzab [address] [facility], Floor [address] [place] [address] Jair Gonzalez MD, PhD [address] [place] [address] Samm@d [facility] 01/11/2025 8:40 AM EST Appointment [facility] Imaging Department, [facility], [place] [address] [facility], Floor [address] [place] [address] Jair Gonzalez MD, PhD [address] [place] [phone] Samm@d [email or web address] 01/11/2025 10:30 AM EST Office Visit [facility], [address], 10th [place] [address] Jair Gonzalez MD, PhD [address] [place] [address] Samm@[email or web address] documented as of this encounter Visit Diagnoses Not on filedocumented in this encounter Care Teams Outdoor Adventure Leader Relationship Specialty Start Date End Date Alban Abrams MD [address] [place] [address] [place] [address] PCP - General Internal Medicine 02/17/17 Self-Referred, Patient Referring Physician 02/17/17 Jair Gonzalez MD, PhD 450 [place] [address] [email or web address] Primary Oncologist Oncology 02/17/17 Jair Gonzalez MD, PhD [address] [place] [address] Samm@[email or web address] Primary Oncologist Oncology 02/17/17 Raymon [place] MD [address] [place] [address] [email or web address] Primary Oncologist Surgical Oncology 03/17/17 Shiloh Beck MD [address] [place] [phone] Hematology and Oncology 12/30/17 documented as of this encounter Additional Source Comments The information contained in this document represents components of the legal health record. It is not the complete legal health record.[facility]
--- OUTSIDE RECORDS SUMMARY | 2024-11-03 11:51 | XMS_ITS | Encounter Summary ---
Author Organization [facility] Address [address] [place] [address] Phone Care Team Providers Care Dog Control Officer Name Role Phone Alban Abrams MD Primary Care Provider [phone] Self-Referred, Patient Unavailable Unavailab Jair Rodriguez MD, PhD Unavailable [phone] Jair Gonzalez MD, PhD Unavailable [phone] Raymon Norman MD Unavailable Shiloh Beck MD Unavailable [phone] Encounter Details Date Type Department Care Team (Late st Contact Info) Description 07/15/2023 Procedure Pass [facility] [place] [address] [employer] [employer] [facility], Floor [address]1 [place] [address] Social History Tobacco Use Types Packs/Day Years [...] Contact Info) Description 10/12/2024 Procedure Pass [facility] Imaging Department, [facility], [place] [address] [facility], Floor [address]1 [place] [address] 10/12/2024 Procedure Pass [facility] Imaging Department, [facility], [place] [address] [facility], Floor [address] [place] [address] 01/11/2025 6:45 AM EST Blood Draw [facility] Imaging Department, [facility], Imaging Mgtrq-uz-Gmou [address] [facility], Floor [address]1 [place] [address] Jair Gonzalez MD, PhD [address] [place] [phone] Samm@[email or web address] 01/11/2025 8:40 AM EST Appointment [facility] Imaging Department, [facility], [place] [address] [facility] [employer] [facility], [address] [place] [address] Jair Gonzalez MD, PhD [address] [place] [address] Samm@[email or web address] 01/11/2025 10:30 AM EST Office Visit [facility], [facility] [address] [facility], 10th [place] [address] Jair Gonzalez MD, PhD [address] [place] [address] [email or web address] documented as of this encounter Visit Diagnoses Not on filedocumented in this encounter Care Teams Dog Control Officer Relationship Specialty Start Date End Date Alban Abrams MD [address] [place] [address] [address] PCP - General Internal Medicine 02/17/17 Self-Referred, Patient Referring Physician 02/17/17 Jair Gonzalez MD, PhD [address] [place] [phone] [email or web address] Primary Oncologist Oncology 02/17/17 Jair Gonzalez MD, PhD [address] [place] [address] [email or web address] Primary Oncologist Oncology 02/17/17 Raymon [place] MD [address] [place] [phone] [email or web address] Primary Oncologist Surgical Oncology 03/17/17 Shiloh Beck MD [address] [place] [address] [email or web address] Hematology [facility] On[facility] 12/30/17 documented as of this encounter Additional Source Comments The information contained in this document represents components of the legal health record. It is not the complete legal health record.[facility]
--- OUTSIDE RECORDS SUMMARY | 2024-11-03 11:51 | XMS_ITS | Encounter Summary ---
Author Organization [facility] Address [address] [facility] [address] [place] [address] Phone Care Team Providers Care Nursing Specialist Name Role Phone Alban Abrams MD Primary Care Provider [phone] Self-Referred, Patient Unavailable Unavailab Jair Rodriguez MD, PhD Unavailable [phone] Jair Gonzalez MD, PhD Unavailable [phone] Raymon Norman MD Unavailable [phone] Shiloh Beck MD Unavailable [phone] Encounter Details Date Type Department Care Team (Late Contact Info) Description 05/25/2017 Procedure Pass [facility] CT Imaging, Carpenter [address] [place] [address] Social History Tobacco Use Types Packs/Day Years [...] Contact Info) Description 10/12/2024 Procedure Pass [facility] Imaging Department, [facility], [place] [address] [facility], Floor [address]1 [place] [address] 10/12/2024 Procedure Pass [facility] Imaging Department, [facility], [place] [address] [facility], Floor [address]1 [place] [address] 01/11/2025 6:45 AM EST Blood Draw [facility] Imaging Department, [facility], Imaging Bsntg-vb-Focq [address] [facility], Floor [address]1 [place] [address] Jair Gonzalez MD, PhD [address] [place] [address] Samm@[email or web address] 01/11/2025 8:40 AM EST Appointment [facility] Imaging Department, [facility], [place] [address] [facility], Floor [address]1 [place] [address] Jair Gonzalez MD, PhD [address] [place] [phone] Samm@d [email or web address] 01/11/2025 10:30 AM EST Office Visit [facility], [address], 10th [place] [address] Jair Gonzalez MD, PhD [address] [place] [address] Samm@d [facility] documented as of this encounter Visit Diagnoses Not on filedocumented in this encounter Care Teams Nursing Specialist Relationship Specialty Start Date End Date Alban Abrams MD [address] [place] [address] [place] [address] PCP - General Internal Medicine 02/17/17 Self-Referred, Patient Referring Physician 02/17/17 Jair Gonzalez MD, PhD 450 [place] [address] [email or web address] Primary Oncologist Oncology 02/17/17 Jair Gonzalez MD, PhD 450 [place] [address] Samm@[email or web address] Primary Oncologist Oncology 02/17/17 Raymon [place] MD [address] [place] [address] [email or web address] Primary Oncologist Surgical Oncology 03/17/17 Shiloh Beck MD [address] [place] [phone] [email or web address] Hematology and Oncology 12/30/17 documented as of this encounter Additional Source Comments The information contained in this document represents components of the legal health record. It is not the complete legal health record.[facility]
--- OUTSIDE RECORDS SUMMARY | 2024-11-03 11:51 | XMS_ITS | Encounter Summary ---
Author Organization [facility] Address [address] [facility] [address] [place] [address] Phone Care Team Providers Care Echocardiography Tech Name Role Phone Alban Abrams MD Primary Care Provider [phone] Self-Referred, Patient Unavailable Unavailab Jair Rodriguez MD, PhD Unavailable [phone] Jair Gonzalez MD, PhD Unavailable [phone] Raymon Norman MD Unavailable [phone] Shiloh Beck MD Unavailable [phone] Encounter Details Date Type Department Care Team (Late st Contact Info) Description 10/10/2020 Procedure Pass [facility] Imaging [facility], [facility] [place] [address] [facility], Floor L1 [place] [address] Social History Tobacco Use Types Packs/Day Years [...] Info) Description 10/12/2024 Procedure Pass [facility] Imaging Department, [facility], [place] [address] [facility], Floor [address]1 [place] [address] 10/12/2024 Procedure Pass [facility] Imaging Department, [facility], [place] [address] [facility], Floor [address]1 [place] [address] 01/11/2025 6:45 AM EST Blood Draw [facility] Imaging Department, [facility], Imaging Pjauu-ps-Tumv [address] [facility], Floor [address]1 [place] [address] Jair Gonzalez MD, PhD [address] [place] [address] [email or web address] emergency department 01/11/2025 8:40 AM EST Appointment [facility] Imaging Department, [facility], [place] [address] [facility], Floor [address]1 [place] [address] Jair Gonzalez MD, PhD [address] [place] [address] [email or web address] 01/11/2025 10:30 AM EST Office Visit [facility], [address], 10th [place] [address] Jair Gonzalez MD, PhD [address] [place] [address] [email or web address] documented as of this encounter Visit Diagnoses Not on filedocumented in this encounter Care Teams Echocardiography Tech Relationship Specialty Start Date End Date Alban Abrams MD [address] [place] [address] [place] [address] PCP - General Internal Medicine 02/17/17 Self-Referred, Patient Referring Physician 02/17/17 Jair Gonzalez MD, PhD 450 [place] [address] [email or web address] Primary Oncologist Oncology 02/17/17 Jair Gonzalez MD, PhD 450 [place] [address] [email or web address] Primary Oncologist Oncology 02/17/17 Raymon Norman MD [address] [place] [address] [email or web address]. u Primary Oncologist Surgical Oncology 03/17/17 Shiloh Beck MD [address] [place] [address] [email or web address] [facility] On[facility] 12/30/17 documented as of this encounter Additional Source Comments The information contained in this document represents components of the legal health record. It is not the complete legal health record.[facility]
--- OUTSIDE RECORDS SUMMARY | 2024-11-03 11:51 | XMS_ITS | Encounter Summary ---
Author Organization [facility] Address [address] [place] [address] Phone Care Team Providers Care Bag Printer Name Role Phone Alban Abrams MD Primary Care Provider [phone] Self-Referred, Patient Unavailable Unavailab Jair Rodriguez MD, PhD Unavailable [phone] Jair Gonzalez MD, PhD Unavailable [phone] Raymon Norman MD Unavailable [phone] Shiloh Beck MD Unavailable [phone] Encounter Details Date Type Department Care Team (Late st Contact Info) Description 03/18/2023 Procedure Pass [facility] [place] [address] [place] [address] Social History Tobacco Use Types Packs/Day Years [...] Pass [facility] Imaging Department, [facility] [address] [facility], Floor L1 [place] [address] 10/12/2024 Procedure Pass [facility] Imaging Department, [facility] [address] [facility], [facility] L1 [place] [address] 01/11/2025 6:45 AM EST Blood Draw [facility] Imaging Department, [facility], Imaging Khmzi-jv-Mttf [address] [place] [address], Floor L1 [place] [address] Jair Gonzalez MD, PhD [address] [place] [address] Samm@[email or web address] 01/11/2025 8:40 AM EST Appointment [facility] Imaging Department, [facility], [place] [address] [facility], Floor [address]1 [place] [address] Jair Gonzalez MD, PhD [address] [place] [address] Samm@[email or web address] 01/11/2025 10:30 AM EST Office Visit [facility], [address], 10th [place] [address] Jair Gonzalez MD, PhD [address] [place] [address] [email or web address] documented as of this encounter Visit Diagnoses Not on filedocumented in this encounter Care Teams Bag Printer Relationship Specialty Start Date End Date Alban Abrams MD [address] [place] [address] PCP - General Internal Medicine 02/17/17 Self-Referred, Patient Referring Physician 02/17/17 Jair Gonzalez MD, PhD 450 [place] [address] [email or web address] Primary Oncologist Oncology 02/17/17 Jair Gonzalez MD, PhD [address] [place] [address] [email or web address] Primary Oncologist Oncology 02/17/17 Raymon Norman MD [address] [place] [phone] [email or web address] Primary Oncologist Surgical Oncology 03/17/17 Shiloh Beck MD [address] [place] [address] [email or web address] [facility] 12/30/17 documented as of this encounter Additional Source Comments The information contained in this document represents components of the legal health record. It is not the complete legal health record.[facility]
--- OUTSIDE RECORDS SUMMARY | 2024-11-03 11:51 | XMS_ITS | Encounter Summary ---
Author Organization [facility] Address [address] [facility] [address] [facility] [address] [address] [place] [address] Phone Care Team Providers Care Stitcher Utility Name Role Phone Alban Abrams MD Primary Care Provider [phone] Self-Referred, Patient Unavailable Unavailab Jair Rodriguez MD, PhD Unavailable [phone] Jair Gonzalez MD, PhD Unavailable [phone] Raymon Norman MD Unavailable [phone] Shiloh Beck MD Unavailable [phone] Encounter Details Date Type Department Care Team (Late st Contact Info) Description 08/31/2023 Procedure Pass [facility] [address] [place] [address] Social History Tobacco Use Types Packs/Day Years [...] Info) Description 10/12/2024 Procedure Pass [facility] Imaging Department, [facility], [place] [address] [facility], [facility] L1 [place] [address] 10/12/2024 Procedure Pass [facility] Imaging Department, [facility], [place] [address] [facility], [facility] L1 [place] [address] 01/11/2025 6:45 AM EST Blood Draw [facility] Imaging Department, [facility], Imaging Thine-wd-Leiw [address] [place] [address], Floor [address]1 [place] [address] Jair Gonzalez MD, PhD [address] [place] [address] Samm@[email or web address] 01/11/2025 8:40 AM EST Appointment [facility] Imaging Department, [facility], [place] [address] [facility], Floor [address]1 [place] [address] Jair Gonzalez MD, PhD [address] [place] [phone] Samm@[email or web address] 01/11/2025 10:30 AM EST Office Visit [facility], [address], 10th [place] [address] Jair Gonzalez MD, PhD [address] [place] [phone] [email or web address]@[email or web address] documented as of this encounter Visit Diagnoses Not on filedocumented in this encounter Care Teams Stitcher Utility Relationship Specialty Start Date End Date Alban Abrams MD [address] [place] [address] [address] PCP - General Internal Medicine 02/17/17 Self-Referred, Patient Referring Physician 02/17/17 Jair Gonzalez MD, PhD 450 [place] [address] [email or web address] Primary Oncologist Oncology 02/17/17 Jair Gonzalez MD, PhD [address] [place] [address] [email or web address] Primary Oncologist Oncology 02/17/17 Raymon Norman MD [address] [place] [address] [email or web address] Primary Oncologist Surgical Oncology 03/17/17 Shiloh Beck MD [address] [place] [phone] [email or web address] Hematology and Oncology 12/30/17 documented as of this encounter Additional Source Comments The information contained in this document represents components of the legal health record. It is not the complete legal health record.[facility]
[2024-11-03] MEDS: vancomycin/NS 2,000 MG/500 ML PLAST..BAG 250 MG IV (11:52)
--- OUTSIDE RECORDS SUMMARY | 2024-11-03 11:52 | XMS_ITS | Encounter Summary ---
Author Organization [facility] Address [address] [facility] [address] [place] [address] Phone Care Team Providers Care Compress Engineer Name Role Phone Alban Abrams MD Primary Care Provider [phone] Self-Referred, Patient Unavailable Unavailab Jair Rodriguez MD, PhD Unavailable [phone] Jair Gonzaelz MD, PhD Unavailable [phone] Raymon Norman MD Unavailable [phone] Shiloh Beck MD Unavailable [phone] Encounter Details Date Type Department Care Team (Late st Contact Info) Description 06/12/2021 Procedure Pass [facility] [place] [facility] [place] [address] [facility] 3rd [place] [address] Social History Tobacco Use Types Packs/Day Years [...] 10/12/2024 Procedure Pass [facility] Imaging Department, [facility], [place] [address] [facility], Floor L1 [place] [address] 10/12/2024 Procedure Pass [facility] Imaging Department, [facility] [place] [address] [facility], Floor [address]1 [place] [address] 01/11/2025 6:45 AM EST Blood Draw [facility] Imaging Department, [facility], Imaging Xxgdq-qs-Ilcn [address] [facility], Floor [address]1 [place] [address] Jair Gonzalez MD, PhD [address] [place] [phone] [email or web address] 01/11/2025 8:40 AM EST Appointment [facility] Imaging Department, [facility], [place] [address] [facility], Floor [address]1 [place] [address] Jair Gonzalez MD, PhD [address] [place] [phone] [email or web address] 01/11/2025 10:30 AM EST Office Visit [facility], [address], 10th [place] [address] Jair Gonzalez MD, PhD [address] [place] [phone] [email or web address] documented as of this encounter Visit Diagnoses Not on filedocumented in this encounter Care Teams Compress Engineer Relationship Specialty Start Date End Date Alban Abrams MD [address] [place] [address] [place] [address] PCP - General Internal Medicine 02/17/17 Self-Referred, Patient Referring Physician 02/17/17 Jair Gonzalez MD, PhD 450 [place] [address] [email or web address] Primary Oncologist Oncology 02/17/17 Jair Gonzalez MD, PhD 450 [place] [address] [email or web address] Primary Oncologist Oncology 02/17/17 Raymon Norman MD [address] [place] [address] [email or web address] Primary Oncologist Surgical Oncology 03/17/17 Shiloh Beck MD [address] [place] [phone] [email or web address] H[facility] Oncology 12/30/17 documented as of this encounter Additional Source Comments The information contained in this document represents components of the legal health record. It is not the complete legal health record.[facility]
--- OUTSIDE RECORDS SUMMARY | 2024-11-03 11:52 | XMS_ITS | Encounter Summary ---
Author Organization [facility] Address [address] [facility] [address] [place] [address] Phone Care Team Providers Care Landscaping Manager Name Role Phone Alban Abrams MD Primary Care Provider [phone] Self-Referred, Patient Unavailable Unavailab Jair Rodriguez MD, PhD Unavailable [phone] Jair Gonzalez MD, PhD Unavailable [phone] Ramyon Norman MD Unavailable [phone] Shiloh Beck MD Unavailable [phone] Encounter Details Date Type Department Care Team (Late st Contact Info) Description 06/12/2021 Procedure Pass [facility] [place] [facility] [place] [address] [facility] 3rd [place] [address] Social History Tobacco Use Types Packs/Day Years [...] Procedure Pass [facility] Imaging Department, [facility], [place] [address] [facility], Floor L1 [place] [address] 10/12/2024 Procedure Pass [facility] Imaging Department, [facility], [place] [address] [facility], Floor [address]1 [place] [address] 01/11/2025 6:45 AM EST Blood Draw [facility] Imaging Department, [facility], Imaging Mmnje-xb-Baxg [address] [facility], Floor [address]1 [place] [address] Jair Gonzalez MD, PhD [address] [place] [address] Samm@[email or web address] 01/11/2025 8:40 AM EST Appointment [facility] Imaging Department, [facility], [place] [address] [facility], Floor [address]1 [place] [address] Jair Gonzalez MD, PhD [address] [place] [phone] [email or web address] [email or web address] 01/11/2025 10:30 AM EST Office Visit [facility], [address], 10th [place] [address] Jair Gonzalez MD, PhD [address] [place] [phone] [email or web address] documented as of this encounter Visit Diagnoses Not on filedocumented in this encounter Care Teams Landscaping Manager Relationship Specialty Start Date End Date Alban Abrams MD [address] [place] [address] [place] [address] PCP - General Internal Medicine 02/17/17 Self-Referred, Patient Referring Physician 02/17/17 Jair Gonzalez MD, PhD [address] [place] [address] [email or web address] Primary Oncologist Oncology 02/17/17 Jair Gonzalez MD, PhD [address] [place] [address] [email or web address] Primary Oncologist Oncology 02/17/17 Raymon Norman MD [address] [place] [address] [email or web address] Primary Oncologist Surgical Oncology 03/17/17 Shiloh Beck MD [address] [place] [phone] [email or web address] Hematology [facility] On[facility] 12/30/17 documented as of this encounter Additional Source Comments The information contained in this document represents components of the legal health record. It is not the complete legal health record.[facility]
--- OUTSIDE RECORDS SUMMARY | 2024-11-03 11:52 | XMS_ITS | Encounter Summary ---
Author Organization [facility] Address [address] [facility] [facility] [address] [place] [address] Phone Care Team Providers Care Hl7 Interface Developer Name Role Phone Alban Abrams MD Primary Care Provider [phone] Self-Referred, Patient Unavailable Unavailab Jair Rodriguez MD, PhD Unavailable [phone] Jair Gonzalez MD, PhD Unavailable [phone] Raymon Norman MD Unavailable [phone] Shiloh Beck MD Unavailable Encounter Details Date Type Department Care Team (Late st Contact Info) Description 01/16/2021 Procedure Pass [facility] Imaging Department, [facility] [place] [address] [facility], Floor L1 [place] [address] Social History Tobacco Use Types Packs/Day Years [...] st Contact Info) Description 10/12/2024 Procedure Pass [facility] Imaging Department, [facility] [place] [address] [facility], Floor L1 [place] [address] 10/12/2024 Procedure Pass [facility] Imaging Department, [facility] [place] [address] [facility], Floor [address]1 [place] [address] 01/11/2025 6:45 AM EST Blood Draw [facility] Imaging Department, [facility], Imaging Kxazu-ne-Qnxj [address] [facility], Floor [address]1 [place] [address] Jair Gonzalez MD, PhD [address] [place] [phone] [email or web address] 01/11/2025 8:40 AM EST Appointment [facility] Imaging Department, [facility], [place] [address] [facility], Floor [address]1 [place] [address] Jair Gonzalez MD, PhD [address] [place] [phone] [email or web address] [email or web address] 01/11/2025 10:30 AM EST Office Visit [facility], [address], 10th [place] [address] Jair Gonzalez MD, PhD [address] [place] [phone] [email or web address] [email or web address] documented as of this encounter Visit Diagnoses Not on filedocumented in this encounter Care Teams Hl7 Interface Developer Relationship Specialty Start Date End Date Alban Abrams MD [address] [place] [address] [place] [address] PCP - General Internal Medicine 02/17/17 Self-Referred, Patient Referring Physician 02/17/17 Jair Gonzalez MD, PhD 450 [place] [address] [email or web address] Primary Oncologist Oncology 02/17/17 Jair Gonzalez MD, PhD 450 [place] [address] Samm@[email or web address] Primary Oncologist Oncology 02/17/17 Raymon Norman MD [address] [place] [phone] [email or web address] Primary Oncologist Surgical Oncology 03/17/17 Shiloh Beck MD [address] [place] [address] [email or web address] Hematology and Oncology 12/30/17 documented as of this encounter Additional Source Comments The information contained in this document represents components of the legal health record. It is not the complete legal health record.[facility]
--- OUTSIDE RECORDS SUMMARY | 2024-11-03 11:52 | XMS_ITS | Encounter Summary ---
Author Organization [facility] Address [address] [facility] [address] [place] [address] Phone Care Team Providers Care Party Planner Name Role Phone Alban Abrams MD Primary Care Provider [phone] Self-Referred, Patient Unavailable Unavailab Jair Rodriguez MD, PhD Unavailable [phone] Jair Gonzalez MD, PhD Unavailable [phone] Raymon oNrman MD Unavailable [phone] Shiloh Beck MD Unavailable Encounter Details Date Type Department Care Team (Late st Contact Info) Description 06/10/2017 Procedure Pass [facility] Imaging Department, [facility] [place], [place] [address] [facility], Floor [address]1 [place] [address] Social History Tobacco Use Types Packs/Day Years [...] st Contact Info) Description 10/12/2024 Procedure Pass [facility] Imaging Department, [facility] [place] [address] [facility], Floor [address]1 [place] [address] 10/12/2024 Procedure Pass [facility] Imaging Department, [facility], [place] [address] [facility], Floor [address] [place] [address] 01/11/2025 6:45 AM EST Blood Draw [facility] Imaging Department, [facility], Imaging Jisuk-gv-Zeha [address] [facility], Floor [address] [place] [address] Jair Gonzalez MD, PhD [address] [place] [phone] Samm@[email or web address] 01/11/2025 8:40 AM EST Appointment [facility] Imaging Department, [facility], [place] [address] [facility], Floor [address] [place] [address] Jair Gonzalez MD, PhD [address] [place] [phone] [email or web address] 01/11/2025 10:30 AM EST Office Visit [facility], [address], 10th [place] [address] Jair Gonzalez MD, PhD [address] [place] [phone] [email or web address] documented as of this encounter Visit Diagnoses Not on filedocumented in this encounter Care Teams Party Planner Relationship Specialty Start Date End Date Alban Abrams MD [address] [place] [address] [place] [address] PCP - General Internal Medicine 02/17/17 Self-Referred, Patient Referring Physician 02/17/17 Jair Gonzalez MD, PhD 450 [place] [address] [email or web address] Primary Oncologist Oncology 02/17/17 Jair Gonzalez MD, PhD 450 [place] [address] [email or web address] Primary Oncologist Oncology 02/17/17 Raymon Norman MD [address] [place] [address] [email or web address] Primary Oncologist Surgical Oncology 03/17/17 Shiloh Beck MD [address] [place] [phone] [email or web address] Hematology and Oncology 12/30/17 documented as of this encounter Additional Source Comments The information contained in this document represents components of the legal health record. It is not the complete legal health record.[facility]
--- OUTSIDE RECORDS SUMMARY | 2024-11-03 11:52 | XMS_ITS | Encounter Summary ---
Author Organization [facility] Address [address] [facility] [address] [place] [address] Phone Care Team Providers Care Florist'S Decorator Name Role Phone Alban Abrams MD Primary Care Provider [phone] Self-Referred, Patient Unavailable Unavailab Jair Rodriguez MD, PhD Unavailable [phone] Jair Gonzalez MD, PhD Unavailable [phone] Raymon Norman MD Unavailable [phone] Shiloh Beck MD Unavailable [phone] Encounter Details Date Type Department Care Team (Late st Contact Info) Description 01/16/2021 Procedure Pass [facility], [facility] [place], [place] [address] [facility], [address] [place] [address] Social History Tobacco Use Types Packs/Day Years [...] st Contact Info) Description 10/12/2024 Procedure Pass [facility] Imaging Department, [facility], [place] [address] [facility], [place] [address] [place] [address] 10/12/2024 Procedure Pass [facility] Imaging Department, [facility], [place] [address] [facility], [place] [address] [place] [address] 01/11/2025 6:45 AM EST Blood Draw [facility] Imaging Department, [facility], Imaging [id number] [address] [facility], [address] [place] [address] Jair Gonzalez MD, PhD [address] [place] [phone] [email or web address] 01/11/2025 8:40 AM EST Appointment [facility] Imaging Department, [facility], [place] [address] [facility], [place] [address] [place] [address] Jair Gonzalez MD, PhD [address] [place] [phone] [email or web address] 01/11/2025 10:30 AM EST Office Visit [facility], [address], 10th [place] [address] Jair Gonzalez MD, PhD [address] [place] [phone] [email or web address] documented as of this encounter Visit Diagnoses Not on filedocumented in this encounter Care Teams Florist'S Decorator Relationship Specialty Start Date End Date Alban Abrams MD [address] [place] [address] [place] [address] PCP - General Internal Medicine 02/17/17 Self-Referred, Patient Referring Physician 02/17/17 Jair Gonzalez MD, PhD [address] [place] [address] [email or web address] Primary Oncologist Oncology 02/17/17 Jair Gonzalez MD, PhD [address] [place] [address] [email or web address] Primary Oncologist Oncology 02/17/17 Raymon Norman MD [address] [place] [phone] [email or web address] Primary Oncologist Surgical Oncology 03/17/17 Shiloh Beck MD [address] [place] [phone] [email or web address] 12/30/17 documented as of this encounter Additional Source Comments The information contained in this document represents components of the legal health record. It is not the complete legal health record.[facility]
--- OUTSIDE RECORDS SUMMARY | 2024-11-03 11:52 | XMS_ITS | Encounter Summary ---
Author Organization [facility] Address [address] [facility] [address] [place] [address] Phone Care Team Providers Care Bone Char Kiln Operator Name Role Phone Alban Abrams MD Primary Care Provider [phone] Self-Referred, Patient Unavailable Unavailab Jair Rodriguez MD, PhD Unavailable [phone] Jair Gonzalez MD, PhD Unavailable [phone] Raymon Norman MD Unavailable [phone] Shiloh Beck MD Unavailable [phone] Encounter Details Date Type Department Care Team (Late Contact Info) Description 10/08/2017 Procedure Pass [facility] CT Imaging, [place] [address] [place] [address] Social History Tobacco Use Types Packs/Day Years [...] Procedure Pass [facility] Imaging Department, [facility], [place] [address] [facility], Floor [address]1 [place] [address] 10/12/2024 Procedure Pass [facility] Imaging Department, [facility], [place] [address] [facility], Floor [address] [place] [address] 01/11/2025 6:45 AM EST Blood Draw [facility] Imaging Department, [facility], Imaging [id number] [address] [facility], Floor [address] [place] [address] Jair Gonzalez MD, PhD [address] [place] [phone] [email or web address] 01/11/2025 8:40 AM EST Appointment [facility] Imaging Department, [facility], [place] [address] [facility], Floor [address] [place] [address] Jair Gonzalez MD, PhD [address] [place] [phone] [email or web address] 01/11/2025 10:30 AM EST Office Visit [facility], [address], 10th [place] [address] Jair Gonzalez MD, PhD [address] [place] [phone] [email or web address] documented as of this encounter Visit Diagnoses Not on filedocumented in this encounter Care Teams Bone Char Kiln Operator Relationship Specialty Start Date End Date Alban Abrams MD [address] [place] [address] [place] [address] PCP - General Internal Medicine 02/17/17 Self-Referred, Patient Referring Physician 02/17/17 Jair Gonzalez MD, PhD [address] [place] [address] [email or web address] Primary Oncologist Oncology 02/17/17 Jair Gonzalez MD, PhD [address] [place] [address] [email or web address] Primary Oncologist Oncology 02/17/17 Raymon Norman MD [address] [place] [phone] [email or web address] Primary Oncologist Surgical Oncology 03/17/17 Shiloh Beck MD [address] [place] [phone] [email or web address] 12/30/17 documented as of this encounter Additional Source Comments The information contained in this document represents components of the legal health record. It is not the complete legal health record.[facility]
[2024-11-03 11:53] LABS: Alanine Aminotransferase 38 U/L (0-40); Albumin Level 2.8 g/dL (3.5-5.0); Alkaline Phosphatase 81 U/L (39-117); Anion Gap 11 (12-20); Aspartate Amino Transferase 57 U/L (5-37); Blood Urea Nitrogen 19 mg/dL (9-16); Calcium 8.0 mg/dL (8.4-10.2); Carbon Dioxide 25 mmol/L (22-29); Chloride 102 mmol/L (96-108); Creatinine Clr Calc Pharmacy 84.0; Estimated Glomerular Filt Rate > 60; Magnesium 1.7 mg/dL (1.6-2.6); Potassium 3.9 mmol/L (3.3-5.1); Sodium 134 mmol/L (135-145); Total Protein 5.3 g/dL (6.5-8.0)
[2024-11-03 12:00] LABS: Troponin-I High Sensitivity 76.7 ng/L (<3.5-35.0)
[2024-11-03 12:04] LABS: Appearance Urine Cloudy; Glucose Urine UA Negative (Negative); PH 5.0 (5.0-9.0); Specific Gravity - Urine 1.020 (1.005-1.025); UMIC TRIGGER UACC YES
--- NOTE | 2024-11-03 12:08 | MHC.EDTECH ---
pt placed on hospital gown, rectal probe placed to continuously monitor temperature, vitals measuring Q15min, call kay within reach. Skin in left grown, testicles, and sacrum with slight redness and slight skin breakdown, RN made aware
--- NOTE | 2024-11-03 12:11 | MHC.EDTECH ---
pt urinated 100mL of yellow orange in urinal. urine collected and sent to lab.
[2024-11-03 12:14] LABS: Resp Syncy Virus RNA Qual PCR NEGATIVE (Negative); SARS COV2 PCR INHOUSE NEGATIVE (Negative)
--- NOTE | 2024-11-03 12:52 | PC.NURSE ---
Patient noted to have multiple small blister-like lesions to gluteal crest & posterior aspect of scrotum. Dr. Murphy also evaluated the area and photographed the area. Dressed with pink sacral Allevyn foam wound dressing by this RN.
[2024-11-03 13:34] LABS: Reflex Lactate? Lactic Acid Added
--- NOTE | 2024-11-03 13:38 | MHC.CM.ED ---
Patient came to ER after another fall at home. Work up is pending. Patient is now agreeable to rehab. Patient is active with [facility]. [facility] so they can follow for d/c needs.
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
[2024-11-03 14:03] LABS: Troponin-I High Sensitivity 86.4 ng/L (<3.5-35.0)
[2024-11-03 14:13] LABS: Uric Acid 5.4 mg/dL (3.4-7.0)
--- NOTE | 2024-11-03 14:33 | PHA.PROG ---
Admission Date/Time: November 03, 2024 13:22 Indication: SEPSIS Weight in k.7 kg Adjusted body weight in Kg: [place] body weight in Kg: Obesity Dosing Indication % IBW: Serum Creatinine - Last 168 Hours 11/03/24 11:26 Creatinine 1.13 Estimated CrCl and GFR - Last 168 Hours 11/03/24 11:26 Estim Creat Clear Calc 84.0 Estimated GFR > 60 Vancomycin Loading Dose: 2000 MG Current Vancomycin Dosing Regimen: 1250 MG Q12H Vancomycin Monitoring using AUC goal of 400 - 600 range with trough as surrogate marker: ZEQ=542 TROUGH=20.5 Date and Time for next Vancomycin Level to be drawn: 11/04/24 @2100 Pharmacist Comments on Vancomycin Plan: Vancomycin dosing will take advantage of [employer] as a clinical decision support tool that uses Bayesian modeling to calculate individual patient's pharmacokinetic parameters and forecast the patient's drug concentration time course with the target goal AUC 24 range of 400 - 600 mg/L/hr.
[2024-11-03] MEDS: Lactated Ringers 1,000 ML 100 ML IVCONT ×2 (14:38→23:51)
--- NOTE | 2024-11-03 14:46 | PHA.MEDREC ---
Pharmacy Consult ? Medication Reconciliation Pharmacy has completed the medication reconciliation. Spoke with pt and he confirmed his medications. Pt confirmed he takes his Gababpentin 300mg tab 600mg tabs daily, his Hydromorphone 4mg tab 2 tabs (8mg) Q2-3H prn pain and pt states he takes his Sertraline 50mg tab TID.
--- NOTE | 2024-11-03 14:51 | PHA.MEDREC ---
Addendum entered by Keyla Adams [facility] 11/03/24 15:38: Went down to speak with patient. Patient states he takes gabapentin 300 mg tid, hydromorphone bid and may take 1 add'l dose. zolpidem at night, sertraline daily. Original Note: Pharmacy Consult ? Medication Reconciliation Pharmacy has completed the medication reconciliation. Spoke with pt and he confirmed his medications. Pt confirmed he takes his Gababpentin 300mg tab 600mg tabs daily, his Hydromorphone 4mg tab 2 tabs (8mg) Q2-3H prn pain and pt states he takes his Sertraline 50mg tab TID. Patient takes Dexamethazome 4mg tabs when he gets Chemo Infusions done and pt states he is in a round of remission and is not getting another infusion done until next week.
[2024-11-03 14:53] LABS: ~Lactic Acid-LAB USE ONLY 1.5 mmol/L (0.5-2.0)
[2024-11-03 15:09] LABS: Chlamydia pneumoniae PCR Not Detected (Not Detect.); Coronavirus 229E PCR Not Detected (Not Detect.); Coronavirus HKU1 PCR Not Detected (Not Detect.); Coronavirus NL63 PCR Not Detected (Not Detect.); Coronavirus OC43 PCR Not Detected (Not Detect.); RSV PCR Not Detected (Not Detect.); Rhino/Enterovirus PCR Not Detected (Not Detect.)
--- NOTE | 2024-11-03 15:11 | MHC.EDTECH ---
pt transferred to hospital with help from ED staff, bed alarm is on, call kay within reach, RN made aware
[2024-11-03 15:24] LABS: SARS-CoV-2 PCR Not Detected (Not Detect.)
[2024-11-03 15:25] LABS: Influenza A H1 PCR Not Detected (Not Detect.); Influenza A H1-2009 PCR Not Detected (Not Detect.); Influenza A H3 PCR Not Detected (Not Detect.)
[2024-11-04] VITALS (7 sets, daily range): BP systolic 122–186; BP diastolic 58–88; PULSE 89–118; RESP 18–20; TEMP 36.7–38.6; O2SAT 91–96
[2024-11-04] MEDS: 0.9 % Sodium Chloride Flush 3 ML SYRINGE IVFLUSH ×4 (00:03→20:12)
[2024-11-04 07:28] LABS: Anion Gap 11 (12-20); Blood Urea Nitrogen 15 mg/dL (9-16); Calcium 7.6 mg/dL (8.4-10.2); Carbon Dioxide 23 mmol/L (22-29); Chloride 106 mmol/L (96-108); Creatinine Clr Calc Pharmacy 89.5; Estimated Glomerular Filt Rate > 60; Hematocrit 25.3 % (42.0-52.0); Hemoglobin 8.7 g/dl (14.0-18.0); Mean Corpuscular HGB Conc 34.4 g/dl (31.0-36.0); Mean Corpuscular Hemoglobin 32.3 pg (27.0-33.0); Mean Corpuscular Volume 94.1 fL (80.0-98.0); NRBC Abs Auto 0.000 X10*3/uL (0.0-0.012); NRBC Pct Auto 0.0 /100WBC (0.0-0.2); Potassium 3.6 mmol/L (3.3-5.1); Red Blood Count 2.69 X10*6/uL (4.60-5.80); Sodium 136 mmol/L (135-145)
[2024-11-04 07:34] LABS: Platelet Count 66 X10*3/uL (160-400); WBC ABN SCTR FOR CBC 1
[2024-11-04 07:42] LABS: Glucose, Whole Blood 156 mg/dL (60-115)
[2024-11-04 08:00] LABS: White Blood Count 0.6 X10*3/uL (4.8-10.8)
--- NOTE | 2024-11-04 08:26 | HO.PM.IMPN ---
Subjective Subjective Date of Service: 11/04/24 Interval History: Neutropenic fever, pneumonia Review of Systems sob and cough improivng feels generlaised weak Review of Systems: Yes all other systems are reviewed and are negative Physical Exam Exam: Exam: Appearance: Alert.? Oriented X3.? cvs: rrr, [id number] . res: air entry seems similar ,diminshded at bases . abd: no rebound or guarding ,nt, bs present. ext pulses present , no cyanosis . neuro: axo3 , nonfocal. Vital Signs: Vital Signs: Last Vital Signs Temp 99.2 F 11/04/24 07:57 Pulse 93 11/04/24 07:57 Resp 19 11/04/24 07:57 BP 140/60 H 11/04/24 07:57 Pulse Ox 94 11/04/24 07:57 O2 Del Method Nasal Cannula 11/04/24 07:57 O2 Flow Rate 4 11/04/24 07:57 BMI result Body Mass Index 39.5 Objective Data Active Medications Acetaminophen (Acetaminophen 325 Mg Tablet) 650 mg PO Q6H PRN PRN Reason: Pain, Mild 1-3,fever,headache Last Admin: 11/03/24 21:24 Dose: 650 mg Documented By: DAVID Apixaban (Apixaban 2.5 Mg Tablet) 2.5 mg PO BID [facility] Last Admin: 11/03/24 21:24 Dose: 2.5 mg Documented By: DAVID Ascorbic Acid (Ascorbic Acid 500 Mg Tablet) 1,000 mg PO DAILY [facility] Cyclobenzaprine HCl (Cyclobenzaprine Hcl 10 Mg Tablet) 10 mg PO TID [facility] Last Admin: 11/03/24 21:24 Dose: 10 mg Documented By: DAVID Diphenoxylate HCl/Atropine (Diphenoxylate/Atrop 2.5/0.025 Tablet) 1 tab PO QID PRN PRN Reason: Diarrhea Doxazosin Mesylate (Doxazosin Mesylate 2 Mg Tablet) 4 mg PO BEDTIME [facility] Last Admin: 11/03/24 21:24 Dose: 4 mg Documented By: DAVID Gabapentin (Gabapentin 300 Mg Capsule) 300 mg PO TID [facility] Last Admin: 11/03/24 21:24 Dose: 300 mg Documented By: DAVID Guaifenesin/Dextromethorphan (Guaifenesin Dm 100/10/5 Ml 5 Ml Syrup) 5 ml PO Q6H PRN PRN Reason: Cough Hydromorphone HCl (Hydromorphone Hcl 2 Mg Tablet) 4 mg PO BID PRN PRN Reason: Pain (Scale Score 4-6) Hydromorphone HCl (Hydromorphone Hcl 2 Mg Tablet) 4 mg PO DAILY PRN PRN Reason: Pain (Scale Score 7-10) Lactated Ringer's (Lr) 1,000 mls @ 100 mls/hr IVCONT .Q10H [facility] Last Admin: 11/03/24 23:51 Dose: 100 mls/hr Documented By: DAVID Piperacillin Sod/Tazobactam (Sod 4.5 gm/ Sodium Chloride) 100 mls @ 200 mls/hr IV Q6H [facility] Last Infusion: 11/04/24 06:28 Dose: Infused Documented By: DAVID Vancomycin HCl 1,250 mg/ (Sodium Chloride) 250 mls @ 166.667 mls/hr IV Q12H [facility] Last Infusion: 11/04/24 01:20 Dose: Infused Documented By: DAVID Ondansetron HCl (Ondansetron Hcl 4 Mg/2 Ml Vial) 4 mg IVPUSH Q8H PRN PRN Reason: Nausea and Vomiting Pharmacy Consult (Consult Rx Vancomycin Dosing) 1 each MISCELLANE DAILY PRN PRN Reason: Consult order Polyethylene Glycol (Polyethylene Glycol 3350 17 Gm Powd.Pack) 17 gm PO DAILY PRN PRN Reason: Constipation Sertraline HCl (Sertraline Hcl 50 Mg Tablet) 50 mg PO DAILY [facility] Sodium Chloride (0.9 % Sodium Chloride Flush 3 Ml Syringe) 3 ml IVFLUSH QSHIFT [facility] Last Admin: 11/04/24 00:03 Dose: 3 ml Documented By: DAVID Venlafaxine HCl (Venlafaxine Hcl 25 Mg Tablet) 75 mg PO DAILY [facility] Vitamin D (Cholecalciferol (Vitamin D3) 25 Mcg Tablet) 50 mcg PO BID [facility] Last Admin: 11/03/24 21:24 Dose: 50 mcg Documented By: DAVID Zolpidem Tartrate (Zolpidem Tartrate 5 Mg Tablet) 5 mg PO BEDTIME PRN PRN Reason: Sleep Labs 11/04/24 06:39 11/04/24 06:39 Labs: Laboratory Results - last 24 hr 11/03/24 11/03/24 11/03/24 11:26 11:28 11:30 MCV 93.9 MCH 32.1 MCHC 34.1 RDW 15.3 Plt Count 85 L MPV 10.8 Immature Gran % (Auto) 1.0 H Neut % (Auto) 57.2 Lymph % (Auto) 28.2 Hubbard % (Auto) 9.7 Eos % (Auto) 2.9 Baso % (Auto) 1.0 Lymph # (Auto) 0.3 L Hubbard # (Auto) 0.1 Eos # (Auto) 0.0 Baso # (Auto) 0.0 Abs Immat Gran (auto) 0.01 Absolute Neuts (auto) 0.6 L Absolute Nucleated RBC 0.000 Nucleated RBC % (auto) 0.0 Smear Tech's Comments VERIFIED Hold Purple Top SEE NOTE PT 14.7 H INR 1.3 H VBG pH VBG pCO2 VBG pO2 VBG HCO3 VBG O2 Saturation VBG Base Excess Anion Gap 11 L Estim Creat Clear Calc 84.0 Estimated GFR > 60 POC Glucose Random Glucose 150 H Lactic Acid 2.6 H* Lactic Acid F/U @ 2Hr Uric Acid 5.4 Calcium 8.0 L Phosphorus 3.0 Magnesium 1.7 Total Bilirubin 1.1 H Direct Bilirubin 0.5 AST 57 H ALT 38 Alkaline Phosphatase 81 Total Protein 5.3 L Albumin 2.8 L Urine Color Urine Appearance Urine pH Ur Specific Lincoln Urine Protein Urine Glucose (UA) Urine Ketones Urine Blood Urine Nitrite Ur Leukocyte Esterase Urine RBC Urine WBC Ur Squamous Epith Cells Calcium Oxalate Crystal Urine Bacteria Hyaline Casts Granular Casts Respiratory Panel Hopper Adenovirus (Rapid PCR) B.pert (TEM-PCR) B.parapertussis DNA PCR C. pneumoniae DNA (PCR) Coronavirus OC43 (PCR) Coronavirus HKU1 (PCR) Coronavirus 229E (PCR) Coronavirus NL63 (PCR) Human Metapneumovir PCR Influenza A (RT-PCR) Influenza A (H1) PCR Influ A () PCR Influenza A (H3) PCR Influenza Type A (PCR) NEGATIVE Influenza B (RT-PCR) Influenza Type B (PCR) NEGATIVE M. pneumoniae (PCR) Parainfluenza 1 (PCR) Parainfluenza 2 (PCR) Parainfluenza 3 (PCR) Parainfluenza 4 (PCR) RSV (PCR) RSV RNA Qual (PCR) NEGATIVE Entero/Rhino (PCR) SARS-CoV-2 RNA (RT-PCR) NEGATIVE 11/03/24 11/03/24 11/03/24 11:30 11:34 11:57 MCV MCH MCHC RDW Plt Count MPV Immature Gran % (Auto) Neut % (Auto) Lymph % (Auto) Hubbard % (Auto) Eos % (Auto) Baso % (Auto) Lymph # (Auto) Hubbard # (Auto) Eos # (Auto) Baso # (Auto) Abs Immat Gran (auto) Absolute Neuts (auto) Absolute Nucleated RBC Nucleated RBC % (auto) Smear Tech's Comments Hold Purple Top SEE NOTE PT INR VBG pH 7.42 VBG pCO2 40 VBG pO2 33 VBG HCO3 26 VBG O2 Saturation 42.0 VBG Base Excess 1.8 Anion Gap Estim Creat Clear Calc Estimated GFR POC Glucose Random Glucose Lactic Acid Lactic Acid F/U @ 2Hr Uric Acid Calcium Phosphorus Magnesium Total Bilirubin Direct Bilirubin AST ALT Alkaline Phosphatase Total Protein Albumin Urine Color Dark Yellow Urine Appearance Cloudy Urine pH 5.0 Ur Specific Lincoln 1.020 Urine Protein 30 (1+) H Urine Glucose (UA) Negative Urine Ketones Trace Urine Blood Large (3+) H Urine Nitrite Negative Ur Leukocyte Esterase Negative Urine RBC 11-20 H Urine WBC 0-5 Ur Squamous Epith Cells 6-10 Calcium Oxalate Crystal Present Urine Bacteria None Seen Hyaline Casts 6-10 Granular Casts Present Respiratory Panel Hopper Adenovirus (Rapid PCR) B.pert (TEM-PCR) B.parapertussis DNA PCR C. pneumoniae DNA (PCR) Coronavirus OC43 (PCR) Coronavirus HKU1 (PCR) Coronavirus 229E (PCR) Coronavirus NL63 (PCR) Human Metapneumovir PCR Influenza A (RT-PCR) Influenza A (H1) PCR Influ A (H1/) PCR Influenza A (H3) PCR Influenza Type A (PCR) Influenza B (RT-PCR) Influenza Type B (PCR) M. pneumoniae (PCR) Parainfluenza 1 (PCR) Parainfluenza 2 (PCR) Parainfluenza 3 (PCR) Parainfluenza 4 (PCR) RSV (PCR) RSV RNA Qual (PCR) Entero/Rhino (PCR) SARS-CoV-2 RNA (RT-PCR) 11/03/24 11/03/24 11/04/24 13:30 14:27 06:39 MCV 94.1 MCH 32.3 MCHC 34.4 RDW 15.4 Plt Count 66 L MPV 10.7 Immature Gran % (Auto) Cancelled Neut % (Auto) Cancelled Lymph % (Auto) Cancelled Hubbard % (Auto) Cancelled Eos % (Auto) Cancelled Baso % (Auto) Cancelled Lymph # (Auto) Cancelled Hubbard # (Auto) Cancelled Eos # (Auto) Cancelled Baso # (Auto) Cancelled Abs Immat Gran (auto) Cancelled Absolute Neuts (auto) Cancelled Absolute Nucleated RBC 0.000 Nucleated RBC % (auto) 0.0 Smear Tech's Comments Hold Purple Top PT INR VBG pH VBG pCO2 VBG pO2 VBG HCO3 VBG O2 Saturation VBG Base Excess Anion Gap 11 L Estim Creat Clear Calc 89.5 Estimated GFR > 60 POC Glucose Random Glucose 163 H Lactic Acid 1.9 Lactic Acid F/U @ 2Hr 1.5 Uric Acid Calcium 7.6 L Phosphorus Magnesium Total Bilirubin Direct Bilirubin AST ALT Alkaline Phosphatase Total Protein Albumin Urine Color Urine Appearance Urine pH Ur Specific Lincoln Urine Protein Urine Glucose (UA) Urine Ketones Urine Blood Urine Nitrite Ur Leukocyte Esterase Urine RBC Urine WBC Ur Squamous Epith Cells Calcium Oxalate Crystal Urine Bacteria Hyaline Casts Granular Casts Respiratory Panel Hopper See Note Adenovirus (Rapid PCR) Not Detected B.pert (TEM-PCR) Not Detected B.parapertussis DNA PCR Not Detected C. pneumoniae DNA (PCR) Not Detected Coronavirus OC43 (PCR) Not Detected Coronavirus HKU1 (PCR) Not Detected Coronavirus 229E (PCR) Not Detected Coronavirus NL63 (PCR) Not Detected Human Metapneumovir PCR Not Detected Influenza A (RT-PCR) Not Detected Influenza A (H1) PCR Not Detected Influ A (H1/09) PCR Not Detected Influenza A (H3) PCR Not Detected Influenza Type A (PCR) Influenza B (RT-PCR) Not Detected Influenza Type B (PCR) M. pneumoniae (PCR) Not Detected Parainfluenza 1 (PCR) Not Detected Parainfluenza 2 (PCR) Not Detected Parainfluenza 3 (PCR) Not Detected Parainfluenza 4 (PCR) Not Detected RSV (PCR) Not Detected RSV RNA Qual (PCR) Entero/Rhino (PCR) Not Detected SARS-CoV-2 RNA (RT-PCR) Not Detected 11/04/24 07:38 MCV MCH MCHC RDW Plt Count MPV Immature Gran % (Auto) Neut % (Auto) Lymph % (Auto) Hubbard % (Auto) Eos % (Auto) Baso % (Auto) Lymph # (Auto) Hubbard # (Auto) Eos # (Auto) Baso # (Auto) Abs Immat Gran (auto) Absolute Neuts (auto) Absolute Nucleated RBC Nucleated RBC % (auto) Smear Tech's Comments Hold Purple Top PT INR VBG pH VBG pCO2 VBG pO2 VBG HCO3 VBG O2 Saturation VBG Base Excess Anion Gap Estim Creat Clear Calc Estimated GFR POC Glucose 156 H Random Glucose Lactic Acid Lactic Acid F/U @ 2Hr Uric Acid Calcium Phosphorus Magnesium Total Bilirubin Direct Bilirubin AST ALT Alkaline Phosphatase Total Protein Albumin Urine Color Urine Appearance Urine pH Ur Specific Lincoln Urine Protein Urine Glucose (UA) Urine Ketones Urine Blood Urine Nitrite Ur Leukocyte Esterase Urine RBC Urine WBC Ur Squamous Epith Cells Calcium Oxalate Crystal Urine Bacteria Hyaline Casts Granular Casts Respiratory Panel Hopper Adenovirus (Rapid PCR) B.pert (TEM-PCR) B.parapertussis DNA PCR C. pneumoniae DNA (PCR) Coronavirus OC43 (PCR) Coronavirus HKU1 (PCR) Coronavirus 229E (PCR) Coronavirus NL63 (PCR) Human Metapneumovir PCR Influenza A (RT-PCR) Influenza A (H1) PCR Influ A (H1/09) PCR Influenza A (H3) PCR Influenza Type A (PCR) Influenza B (RT-PCR) Influenza Type B (PCR) M. pneumoniae (PCR) Parainfluenza 1 (PCR) Parainfluenza 2 (PCR) Parainfluenza 3 (PCR) Parainfluenza 4 (PCR) RSV (PCR) RSV RNA Qual (PCR) Entero/Rhino (PCR) SARS-CoV-2 RNA (RT-PCR) Assessment and Plan (1) JOHN (acute kidney injury): Status: Inactive (2) Weakness: Status: Inactive Plan 73 year old male with history of metastatic colon cancer with Mets to the liver and lung currently undergoing chemotherapy with FOLFIRI followed by Dr. Beck and [facility] who was brought into the emergency department for evaluation of foot pain hypoxia found to have fever and probable pneumonia Neutropenic fever/severe sepsis/acute hypoxic respiratory failure Due to pneumonia in a patient with metastatic cancer undergoing chemotherapy, last chemo reportedly 10/23 tachycardia, tachypnea, fever-improving leukopenia worsening RPP negative, blood culture pending Lactic acid 2.6 - improved with IVF plan: continue IV Zosyn and vancomycin follow blood cultures trend CBC wean oxygen as tolerated d/w hematology /oncology-added granix due to neutropenia. metastatic colon ca with mets to liver and lungs s/p low anterior resection currently undergoing chemotherapy chronic pancytopenia acute neutropenia with fever oncology consult continue chronic pain medication Acute toxic metabolic encephalopathy Due to above-seems improving Brain CT negative, no focal deficits Left foot fractures, chronic symptomatic support NWB on left foot will need PT eval prior to discharge elevated troponin no chest pain repeat troponin pending likely elevated due to demand from sepsis HTN hold captopril for sepsis, soft BP resume as bp tolerates mood continue baseline meds chronic sacral pressure wounds stage 2, POA local wound care wound care nurse consult morbid obesity BMI 39.5 weight loss encouraged BPH continue terazosin BRANDON not on cpap dvt ppx - mechanical devices, continue baseline Eliquis - unclear why pt takes blood thinner ongoing need for stay in the hospital for management of severe sepsis requiring IV antibiotics, IV fluid and close monitoring patient and his updated in detail at bedside. Quality Stroke Does the patient have a stroke diagnosis?: No VTE Prior VTE?: No VTE Risk Level:: Medical - moderate - high VTE Device Contraindication: N/A - Device Ordered VTE Drug Contraindication: N/A - Med Ordered
[2024-11-04 08:41] LABS: Band Neutrophils Percent 0 % (3-5); Eosinophils Percent Manual 8 % (0-4); Lymphocytes Absolute Manual 0.3 X10*3/uL (1.2-4.9); Lymphocytes Percent Manual 48 % (20-40); Metamyelocytes Percent 4 %; Monocytes Absolute Manual 0.1 X10*3/uL (0.1-1.2); Monocytes Percent Manual 12 % (2-11); Neutrophils Absolute Manual 0.2 X10*3/uL (2.0-8.3); Neutrophils Percent Manual 28 % (45-73)
[2024-11-04 08:44] LABS: RBC Morphology NOTED; Schistocytes 2+ (3-5) /OIF; Tear Drop Cells 1+ (0-2) /OIF
[2024-11-04 08:45] LABS: Burr Cells 2+ (3-5) /OIF
--- NOTE | 2024-11-04 10:06 | MHC.CM.PN ---
CM assessment conducted w/ patient and at bedside. Patient alert, oriented to self/place but vague to time and situation. answered most questions. IMM delivered. Patient lives at home w/ , Nara, who assists with all care. Ambulates w/ a walker most times, uses w/c in community. Other DME: commode, hospital bed. Active w/ [facility] for SN/PT/OT. Followed by Dr. Beck. Per , chemo schedule is every other Wednesday, last chemo tx 10/23. HCP on file and verified. PCP Oleg Hidalgo MD Will need PT eval, several falls at home. Anticipate recommendation for STR. Patient/ would like referrals placed, but are not decided on STR as they are aware patient likely cannot continue chemo tx while in rehab. Choices are 1) [facility], 2) [facility], 3) [facility], 4) [facility], 5) [facility]. DP: Home, resume services & new [facility] referral vs STR (referrals sent via [facility]). BLS transport. CM will continue to follow.
[2024-11-04] MEDS: Lactated Ringers 1,000 ML 100 ML IVCONT ×2 (12:00→21:31)
[2024-11-04] MEDS: guaiFENesin DM 100/10/5 ML 5 ML SYRUP PO (15:22)
--- NOTE | 2024-11-04 17:28 | HO.SKINPHOTO ---
Location:coccyx Category: Stage: Length: Width: Depth: cm Location: Category: Stage: Length: Width: Depth: cm Location: Category: Stage: Length: Width: Depth: cm Location: Category: Stage: Length: Width: Depth: cm Location: Category: Stage: Length: Width: Depth: cm Location: Category: Stage: Length: Width: Depth: cm
--- NOTE | 2024-11-04 20:55 | ECG_ITS ---
Test Reason : HR 140 Blood Pressure : */* mmHG Vent. Rate : 140 BPM Atrial Rate : 130 BPM P-R Int : 164 ms QRS Dur : 98 ms QT Int : 318 ms P-R-T Axes : 95 -25 -37 degrees QTcB Int : 485 ms Sinus tachycardia with frequent Premature atrial complexes with Aberrant conduction Low voltage QRS Septal infarct , age undetermined ST & T wave abnormality, consider anterolateral ischemia Abnormal ECG When compared with ECG of 03-Nov-2024 13:19, Premature atrial complexes are now Present Referred By: Roscoe Macario Electronically Signed By: SONA MEYER MD
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
[2024-11-05] VITALS (7 sets, daily range): BP systolic 111–137; BP diastolic 63–77; PULSE 85–101; RESP 16–18; TEMP 36.4–37.5; O2SAT 91–96
[2024-11-05] MEDS: Lactated Ringers 1,000 ML 100 ML IVCONT (05:57)
--- NOTE | 2024-11-05 05:59 | PC.NURSE ---
Patient had not voided throughout the night. Bladder scanned for 615cc. Provider notified and straight cath'ed for 700cc dark lani urine.
[2024-11-05 08:06] LABS: Creatinine Clr Calc Pharmacy 94.0; Estimated Glomerular Filt Rate > 60
[2024-11-05] MEDS: 0.9 % Sodium Chloride Flush 3 ML SYRINGE IVFLUSH ×3 (08:24→20:57)
--- NOTE | 2024-11-05 08:57 | P.PNIM_ITS ---
Subjective Subjective Date of Service: 11/05/24 Interval History: Neutropenic fever, pneumonia Review of Systems sob and cough improving per patient feels generlaised weak Review of Systems: Yes all other systems are reviewed and are negative Physical Exam 2 Exam: Exam: Appearance: Alert.? Oriented X3.? cvs: rrr, [id number] . res: air entry seems similar ,diminshded at bases . abd: no rebound or guarding ,nt, bs present. ext pulses present , no cyanosis . neuro: axo3 , nonfocal. Vital Signs: Vital Signs: Last Vital Signs Temp 97.5 F 11/05/24 08:00 Pulse 90 11/05/24 08:00 Resp 18 11/05/24 08:00 BP 118/70 11/05/24 08:00 Pulse Ox 92 11/05/24 08:00 O2 Del Method Nasal Cannula 11/05/24 08:00 O2 Flow Rate 4 11/05/24 08:00 BMI result Body Mass Index 39.5 Objective Data Active Medications Acetaminophen (Acetaminophen 325 Mg Tablet) 975 mg PO Q6H PRN PRN Reason: Pain, Mild 1-3,fever,headache Last Admin: 11/04/24 21:46 Dose: 975 mg Documented By: DAYSI Apixaban (Apixaban 2.5 Mg Tablet) 2.5 mg PO BID [facility] Last Admin: 11/05/24 08:21 Dose: 2.5 mg Documented By: DELMI Ascorbic Acid (Ascorbic Acid 500 Mg Tablet) 1,000 mg PO DAILY [facility] Last Admin: 11/05/24 08:23 Dose: 1,000 mg Documented By: DELMI Cyclobenzaprine HCl (Cyclobenzaprine Hcl 10 Mg Tablet) 10 mg PO TID [facility] Last Admin: 11/05/24 08:21 Dose: 10 mg Documented By: DELMI Diphenoxylate HCl/Atropine (Diphenoxylate/Atrop 2.5/0.025 Tablet) 1 tab PO QID PRN PRN Reason: Diarrhea Doxazosin Mesylate (Doxazosin Mesylate 2 Mg Tablet) 4 mg PO BEDTIME [facility] Last Admin: 11/04/24 20:10 Dose: 4 mg Documented By: DAYSI Gabapentin (Gabapentin 300 Mg Capsule) 300 mg PO TID [facility] Last Admin: 11/05/24 08:23 Dose: 300 mg Documented By: DELMI Guaifenesin/Dextromethorphan (Guaifenesin Dm 100/10/5 Ml 5 Ml Syrup) 5 ml PO Q6H PRN PRN Reason: Cough Last Admin: 11/04/24 15:22 Dose: 5 ml Documented By: DELMI Hydromorphone HCl (Hydromorphone Hcl 2 Mg Tablet) 4 mg PO BID PRN PRN Reason: Pain (Scale Score 4-6) Last Admin: 11/04/24 19:37 Dose: 4 mg Documented By: DAYSI Hydromorphone HCl (Hydromorphone Hcl 2 Mg Tablet) 4 mg PO DAILY PRN PRN Reason: Pain (Scale Score 7-10) Last Admin: 11/04/24 15:29 Dose: 4 mg Documented By: DELMI Lactated Ringer's (Lr) 1,000 mls @ 100 mls/hr IVCONT .Q10H [facility] Last Admin: 11/05/24 05:57 Dose: 100 mls/hr Documented By: DAYSI Piperacillin Sod/Tazobactam (Sod 4.5 gm/ Sodium Chloride) 100 mls @ 200 mls/hr IV Q6H [facility] Last Infusion: 11/05/24 06:25 Dose: Infused Documented By: DAYSI Vancomycin HCl 750 mg/ Sodium (Chloride) 265 mls @ 265 mls/hr IV Q12H [facility] Last Infusion: 11/05/24 01:05 Dose: Infused Documented By: DAYSI Ondansetron HCl (Ondansetron Hcl 4 Mg/2 Ml Vial) 4 mg IVPUSH Q8H PRN PRN Reason: Nausea and Vomiting Pharmacy Consult (Consult Rx Vancomycin Dosing) 1 each MISCELLANE DAILY PRN PRN Reason: Consult order Polyethylene Glycol (Polyethylene Glycol 3350 17 Gm Powd.Pack) 17 gm PO DAILY PRN PRN Reason: Constipation Sertraline HCl (Sertraline Hcl 50 Mg Tablet) 50 mg PO DAILY [facility] Last Admin: 11/05/24 08:21 Dose: 50 mg Documented By: DELMI Sodium Chloride (0.9 % Sodium Chloride Flush 3 Ml Syringe) 3 ml IVFLUSH QSHIFT [facility] Last Admin: 11/05/24 08:24 Dose: 3 ml Documented By: DELMI Venlafaxine HCl (Venlafaxine Hcl 25 Mg Tablet) 75 mg PO DAILY [facility] Last Admin: 11/05/24 08:20 Dose: 75 mg Documented By: DELMI Vitamin D (Cholecalciferol (Vitamin D3) 25 Mcg Tablet) 50 mcg PO BID [facility] Last Admin: 11/05/24 08:21 Dose: 50 mcg Documented By: DELMI Zolpidem Tartrate (Zolpidem Tartrate 5 Mg Tablet) 5 mg PO BEDTIME PRN PRN Reason: Sleep Labs 11/05/24 09:16 11/05/24 07:17 Labs: Laboratory Results - last 24 hr 11/04/24 11/05/24 11/05/24 20:52 07:17 07:22 Hold Purple Top SEE NOTE Estim Creat Clear Calc 94.0 Estimated GFR > 60 Random Vancomycin 17.5 Microbiology Microbiology Results: Microbiology 11/03/24 11:30 Blood Culture - Preliminary Blood - Venous No growth after 24 hours. 11/03/24 11:26 Blood Culture - Preliminary Blood - Venous No growth after 24 hours. Assessment and Plan (1) JOHN (acute kidney injury): Status: Inactive (2) Weakness: Status: Inactive Plan 73 year old male with history of metastatic colon cancer with Mets to the liver and lung currently undergoing chemotherapy with FOLFIRI followed by Dr. Beck and [facility] who was brought into the emergency department for evaluation of foot pain hypoxia found to have fever and probable pneumonia Neutropenic fever/severe sepsis/acute hypoxic respiratory failure Due to pneumonia in a patient with metastatic cancer undergoing chemotherapy, last chemo reportedly 10/23 tachycardia, tachypnea, fever-improving leukopenia worsening RPP negative, blood culture pending Lactic acid 2.6 - improved with IVF plan: continue IV Zosyn and vancomycin follow blood cultures trend CBC wean oxygen as tolerated d/w hematology /oncology-s/p granix due to neutropenia. metastatic colon ca with mets to liver and lungs s/p low anterior resection currently undergoing chemotherapy chronic pancytopenia acute neutropenia with fever oncology consult continue chronic pain medication Acute toxic metabolic encephalopathy Due to above-seems improving Brain CT negative, no focal deficits Left foot fractures, chronic symptomatic support NWB on left foot will need PT eval prior to discharge elevated troponin no chest pain repeat troponin pending likely elevated due to demand from sepsis HTN hold captopril for sepsis, soft BP resume as bp tolerates mood continue baseline meds chronic sacral pressure wounds stage 2, POA local wound care wound care nurse consult morbid obesity BMI 39.5 weight loss encouraged BPH continue terazosin BRANDON not on cpap dvt ppx - mechanical devices, continue baseline Eliquis - unclear why pt takes blood thinner ongoing need for stay in the hospital for management of severe sepsis requiring IV antibiotics, IV fluid and close monitoring patient updated in detail at bedside. Quality Stroke Does the patient have a stroke diagnosis?: No VTE Prior VTE?: No VTE Risk Level:: Medical - moderate - high VTE Device Contraindication: N/A - Device Ordered VTE Drug Contraindication: N/A - Med Ordered
[2024-11-05 09:15] LABS: Anion Gap 11 (12-20); Blood Urea Nitrogen 13 mg/dL (9-16); Calcium 8.0 mg/dL (8.4-10.2); Carbon Dioxide 21 mmol/L (22-29); Chloride 108 mmol/L (96-108); Potassium 4.2 mmol/L (3.3-5.1); Sodium 136 mmol/L (135-145)
[2024-11-05 09:56] LABS: Hematocrit 25.1 % (42.0-52.0); Hemoglobin 8.4 g/dl (14.0-18.0); Mean Corpuscular HGB Conc 33.5 g/dl (31.0-36.0); Mean Corpuscular Hemoglobin 31.5 pg (27.0-33.0); Mean Corpuscular Volume 94.0 fL (80.0-98.0); NRBC Abs Auto 0.000 X10*3/uL (0.0-0.012); NRBC Pct Auto 0.0 /100WBC (0.0-0.2); Red Blood Count 2.67 X10*6/uL (4.60-5.80)
[2024-11-05 09:57] LABS: Platelet Count 67 X10*3/uL (160-400)
[2024-11-05 10:04] LABS: White Blood Count 0.6 X10*3/uL (4.8-10.8)
[2024-11-06] VITALS (7 sets, daily range): BP systolic 120–134; BP diastolic 66–83; PULSE 83–121; RESP 18–22; TEMP 36.2–38.4; O2SAT 90–93; BMI 39.5
--- NOTE | 2024-11-06 | ECG_ITS ---
Test Reason : tachycardia Blood Pressure : */* mmHG Vent. Rate : 122 BPM Atrial Rate : 122 BPM P-R Int : 154 ms QRS Dur : 122 ms QT Int : 326 ms P-R-T Axes : 80 -17 96 degrees QTcB Int : 464 ms Sinus tachycardia with Premature atrial complexes with Aberrant conduction Septal infarct (cited on or before 04-Nov-2024) ST & T wave abnormality, consider anterolateral ischemia Abnormal ECG When compared with ECG of 04-Nov-2024 21:02, QRS duration has increased Serial changes of Septal infarct Present Referred By: Lit Peng Electronically Signed By: SONA MEYER MD
--- NOTE | 2024-11-06 07:00 | CA_ITS ---
Transthoracic Echocardiogram Patient (Last, First, Middle): Jeffery Marcus, Gender: Male Date of : 1950 Age: 73 Procedure Date: 11/06/2024 Procedure Type: Transthoracic E[place] [facility] [place]: 187.96 cm Weight: 138.35 kg BSA: 2.60 m2 Heart Rate: bpm BP: 116 / 56 mmHg Special Ed Assistant: Referring MD: Lit Peng MD Tile Classifier: Thien Griffin MD Symptoms: tachycardia/nsvt Study Quality: Technically Difficult ECG Rhythm: Sinus tach Conclusions: - 1. Technically limited study due to body habitus 2. Normal LV ejection fraction of 60 65% with moderate LVH 3. Cardiac valvular Dopplers within normal limits 4. On some views right ventricular appears to be enlarged although systolic function is difficult to determine 5. Small pericardial effusion more prominent near the left ventricle Findings Procedure Information Contrast agent, definity, is being given per protocol without apparent complications. Left Ventricle The left ventricle was not well visualized. Normal left ventricular cavity size. There is moderately increased left ventricular wall thickness. The left ventricular systolic function is borderline reduced. The visually estimated ejection fraction is between 60-65%. There is a flattened septum in systole consistent with right ventricular pressure overload. Diastolic function is indeterminate on the basis of available data. Right Ventricle The right ventricle was not well visualized. Moderately increased right ventricular cavity size. Atria The left atrium was not well visualized. Interatrial shunt cannot be excluded. The right atrium was not well visualized. Aortic Valve The aortic valve was not well visualized. There is no aortic valve stenosis. There is no aortic valve regurgitation. Mitral Valve The mitral valve was not well visualized. There is no mitral valve stenosis. Pulmonic Valve The pulmonic valve was not well visualized. Tricuspid Valve The tricuspid valve was not well visualized. Tricuspid regurgitation envelope is inadequate for calculation of right ventricular systolic pressure. Indeterminate right atrial pressure. Great Vessels The aorta was not well visualized. The pulmonary artery was not well visualized. There is no dilatation of the ascending aorta measuring 3.40 cm. Venous The inferior vena cava was not well visualized. Pericardium/Pleural There is a small loculated pericardial effusion overlying the left ventricle. Measurements 2D Linear Measurements IVSd: 1.58 0.6-0.9/0.6-1.0 cm LVIDd: 4.22 3.9-5.3/4.2-5.9 cm LVIDd Index: 1.62 2.4-3.2/2.2-3.1 cm/m2 LVIDs: 2.81 2.0-3.6 cm LVPWd: 1.53 0.7-1.1 cm LA Diam: 5.90 2.7-3.8/3.0-4.0 cm LAIDs Index: 2.27 1.5-2.3 cm/m2 LV Mass: 331.43 67-162/88-224 g LV Mass Index: 127.47 43-95/49-115 g/m2 LVOT Diam: 2.20 3.0+(-)1.3 cm Mitral Valve MV Pk E: 1.23 MV Decel Time: 135.00 E'Lateral: 13.90 E'Medial: 19.90 E/E' Med: 6.20 E/E' Lat: 8.80 PHT: 40.00 MVA PHT: 5.50 Decel [place]: 9.12 Aortic Valve AoV Pk Nelson: 1.33 AoV Mn Nelson: 0.96 AoV VTI: 0.23 AoV Pk Grad: 7.00 Aov Mn Grad: 4.00 MELIZA Cont.VTI: 2.95 LVOT LVOT Pk Nelson: 0.96 LVOT Mn Nelson: 0.67 LVOT VTI: 0.18 LVOT Pk Grad: 4.00 LVOT Mn Grad: 2.00 LVOT Diam: 2.20 LVOT Area: 3.80 Diastolic Function MV Pk E: 1.23 E'Medial: 19.90 E/E' Med: 6.20 E' Laterial: 13.90 E/E' Lat: 8.80 Right Ventricle TAPSE (mm): 20.30 TVS' Nelson: 14.90 Tricuspid Valve TR Pk Nelson: 2.62 TR Pk Grad: 27.00 Great Vessels Aorta Sinus of Valsalva: 3.80 2.0-3.5 cm Ao Asc: 3.40 2.1-3.4 cm Pulmonary Valve PV Pk Nelson: 0.90 Peak PV Grad: 3.00 Updated in Other Vendor System with Status of Final Thien Griffin MD electronically signed on 11/06/2024 12:13:56 PM with status of Final
[2024-11-06 07:44] LABS: Hematocrit 27.3 % (42.0-52.0); Hemoglobin 9.2 g/dl (14.0-18.0); Mean Corpuscular HGB Conc 33.7 g/dl (31.0-36.0); Mean Corpuscular Hemoglobin 31.8 pg (27.0-33.0); Mean Corpuscular Volume 94.5 fL (80.0-98.0); NRBC Abs Auto 0.060 X10*3/uL (0.0-0.012); Platelet Count 83 X10*3/uL (160-400); Red Blood Count 2.89 X10*6/uL (4.60-5.80); White Blood Count 2.3 X10*3/uL (4.8-10.8)
[2024-11-06 07:45] LABS: NRBC Pct Auto 2.6 /100WBC (0.0-0.2)
[2024-11-06 07:49] LABS: Anion Gap 14 (12-20); Blood Urea Nitrogen 14 mg/dL (9-16); Calcium 8.7 mg/dL (8.4-10.2); Carbon Dioxide 24 mmol/L (22-29); Chloride 105 mmol/L (96-108); Creatinine Clr Calc Pharmacy 90.4; Estimated Glomerular Filt Rate > 60; Potassium 4.2 mmol/L (3.3-5.1); Sodium 139 mmol/L (135-145)
[2024-11-06] MEDS: guaiFENesin DM 100/10/5 ML 5 ML SYRUP PO ×2 (08:12→15:37)
[2024-11-06] MEDS: 0.9 % Sodium Chloride Flush 3 ML SYRINGE IVFLUSH ×2 (08:17→23:58)
[2024-11-06 08:27] LABS: Folate 16.8 ng/mL (> or = 4.0); Vitamin B12 631 pg/mL (200-900)
[2024-11-06 09:04] LABS: VBG HCO3 23 mmol/L (22-26); VBG O2 % Saturation 88.0 %
[2024-11-06 09:04] LABS: Venous Blood Gas Refer to POC result
[2024-11-06 09:40] LABS: Thyroid Stimulating Hormone 1.72 uIU/mL (0.32-4.0)
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
--- NOTE | 2024-11-06 10:51 | MHC.CM.PN ---
Per ROUNDS discussion, Patient is not yet medically cleared for dc (still Hypoxic); Patient may benefit from a PT Eval to assist with disposition. CM will continue to follow.
[2024-11-06] MEDS: iohexoL 350 MG/ML 100 ML INFUS..BTL IV (11:46)
--- NOTE | 2024-11-06 12:36 | HO.WOUND ---
Wound Consult: Initial 73yr old?male admitted to [facility] [place] on 11/03/24 - See progress notes and H&P for detailed history.? Wound consult placed for Coccyx wound POA.? Patient not agreeable to assessment and photo documentation. He requests I assess from the photo. He reports he has been very accommodating allowing staff to look assess and even take a photo and he is no longer willing at this time. Coccyx Etiology: ??Stage 3 Pressure Injury Present on Admission Measurements: 2cm x 1cm x 0.3cm Wound Bed: red pink wound bed Edges: ? epibole and macerated Shawna wound: scar tissue noted along with MASD and Right buttock with small open wound noted in photo ? Pain: patient denies pain at this time. Goals of Treatment: ? Off load pressure and triad to allow for moist wound healing. Recommendations: 1. Turn and Reposition every 2 hours and as needed for patient comfort.? Use pillows or wedges to support off loading positions. 2. Off Load all bony prominences with use of pillows and heel boots if needed.? Apply Preventative foams where needed. ? 3. Monitor for incontinence and moisture control, use barrier creams when needed for prevention and treatment. 4. Provide adequate and supplemental nutrition.? 5. Continue low air loss mattress. 6. When applicable maintain blood glucose levels per Providers order. Coccyx - Off Load Pressure with Q2 hr turns and use of pillows - Cleanse with PH balance spray or wipes, pat dry. ?Apply thin layer of Triad to wound bed - only pat and dab no scrub and rub when soiling occurs. Reapply thin layer PRN after each episode of incontinence. Re-consult wound care Nurse for wound deterioration or wound changes.
--- NOTE | 2024-11-06 12:52 | MHC.CLN ---
CONSULT PT WITH INCREASED NUTRITION RISK R/T PRESSURE INJURY REGULAR DIET PO 50-100% RECOMMEND ADDING ENSURE TID TO PROMOTE WOUND HEALING SUPP PROVIDES 1050KCALS, 60G PROTEIN MONITOR PO INTAKE AND ENCOURAGE SUPPLEMENTS
--- NOTE | 2024-11-06 15:08 | P.PNIM_ITS ---
Subjective Subjective Date of Service: 11/06/24 Interval History: neutropenic fever, ? chf Review of Systems seems somewhat more hypoxic says sob and cough improving mild tachycardia ( had fevers this morning /anxious ) tele -mostly sinus tachy Review of Systems: Yes all other systems are reviewed and are negative Physical Exam 2 Exam: Exam: Appearance: Alert.? Oriented X3.? cvs: rrr, [id number] . res: air entry seems similar ,diminshded at bases . abd: no rebound or guarding ,nt, bs present. ext pulses present , no cyanosis . neuro: axo3 , nonfocal. Vital Signs: Vital Signs: Last Vital Signs Temp 97.4 F 11/06/24 11:38 Pulse 121 H 11/06/24 11:38 Resp 20 11/06/24 11:38 BP 120/66 11/06/24 11:38 Pulse Ox 90 L 11/06/24 11:38 O2 Del Method Nasal Cannula 11/06/24 11:38 O2 Flow Rate 5 11/06/24 11:38 BMI result Body Mass Index 39.5 Objective Data Active Medications Acetaminophen (Acetaminophen 325 Mg Tablet) 975 mg PO Q6H PRN PRN Reason: Pain, Mild 1-3,fever,headache Last Admin: 11/06/24 05:41 Dose: 975 mg Documented By: SHARRI Albuterol/Ipratropium (Albuterol/Iprat 2.5/0.5mg 3 Ml Ampul.Neb) 3 ml INHALE RQ4H WHILE AWAKE PRN PRN Reason: Wheezing Apixaban (Apixaban 2.5 Mg Tablet) 2.5 mg PO BID [facility] Last Admin: 11/06/24 08:10 Dose: 2.5 mg Documented By: CJ Ascorbic Acid (Ascorbic Acid 500 Mg Tablet) 1,000 mg PO DAILY [facility] Last Admin: 11/06/24 08:10 Dose: 1,000 mg Documented By: CJ Cyclobenzaprine HCl (Cyclobenzaprine Hcl 10 Mg Tablet) 10 mg PO TID [facility] Last Admin: 11/06/24 08:10 Dose: 10 mg Documented By: CJ Diphenoxylate HCl/Atropine (Diphenoxylate/Atrop 2.5/0.025 Tablet) 1 tab PO QID PRN PRN Reason: Diarrhea Doxazosin Mesylate (Doxazosin Mesylate 2 Mg Tablet) 4 mg PO BEDTIME [facility] Last Admin: 11/05/24 20:57 Dose: 4 mg Documented By: SHARRI Furosemide (Furosemide 20 Mg/2 Ml Vial) 20 mg IVPUSH BID@0900,1800 [facility]; Protocol Gabapentin (Gabapentin 300 Mg Capsule) 300 mg PO TID [facility] Last Admin: 11/06/24 08:10 Dose: 300 mg Documented By: CJ Guaifenesin/Dextromethorphan (Guaifenesin Dm 100/10/5 Ml 5 Ml Syrup) 5 ml PO Q6H PRN PRN Reason: Cough Last Admin: 11/06/24 08:12 Dose: 5 ml Documented By: CJ Hydromorphone HCl (Hydromorphone Hcl 2 Mg Tablet) 4 mg PO BID PRN PRN Reason: Pain (Scale Score 4-6) Last Admin: 11/05/24 21:00 Dose: 4 mg Documented By: SHARRI Hydromorphone HCl (Hydromorphone Hcl 2 Mg Tablet) 4 mg PO DAILY PRN PRN Reason: Pain (Scale Score 7-10) Last Admin: 11/06/24 05:42 Dose: 4 mg Documented By: SHARRI Piperacillin Sod/Tazobactam (Sod 4.5 gm/ Sodium Chloride) 100 mls @ 200 mls/hr IV Q6H [facility] Last Infusion: 11/06/24 13:35 Dose: Infused Documented By: CJ Vancomycin HCl 500 mg/ Sodium (Chloride) 110 mls @ 110 mls/hr IV Q12H [facility] Last Infusion: 11/06/24 09:16 Dose: Infused Documented By: CJ Lidocaine/Diphenhydr/Alum/Mg/Simeth (Mag&Al/Sim/Diphenhyd/Lidocaine 10 Ml Oral.Susp) 10 ml PO Q4H PRN PRN Reason: Mouth Sore Pain Ondansetron HCl (Ondansetron Hcl 4 Mg/2 Ml Vial) 4 mg IVPUSH Q8H PRN PRN Reason: Nausea and Vomiting Pharmacy Consult (Consult Rx Vancomycin Dosing) 1 each MISCELLANE DAILY PRN PRN Reason: Consult order Polyethylene Glycol (Polyethylene Glycol 3350 17 Gm Powd.Pack) 17 gm PO DAILY PRN PRN Reason: Constipation Sertraline HCl (Sertraline Hcl 50 Mg Tablet) 50 mg PO DAILY [facility] Last Admin: 11/06/24 08:10 Dose: 50 mg Documented By: CJ Sodium Chloride (0.9 % Sodium Chloride Flush 3 Ml Syringe) 3 ml IVFLUSH QSHIFT [facility] Last Admin: 11/06/24 08:17 Dose: 3 ml Documented By: CJ Venlafaxine HCl (Venlafaxine Hcl 25 Mg Tablet) 75 mg PO DAILY [facility] Last Admin: 11/06/24 08:10 Dose: 75 mg Documented By: CJ Vitamin D (Cholecalciferol (Vitamin D3) 25 Mcg Tablet) 50 mcg PO BID [facility] Last Admin: 11/06/24 08:09 Dose: 50 mcg Documented By: CJ Zolpidem Tartrate (Zolpidem Tartrate 5 Mg Tablet) 5 mg PO BEDTIME PRN PRN Reason: Sleep Labs 11/06/24 06:51 11/06/24 06:51 Labs: Laboratory Results - last 24 hr 11/05/24 11/06/24 11/06/24 21:03 06:51 08:59 MCV 94.5 MCH 31.8 MCHC 33.7 RDW 15.2 Plt Count 83 L MPV 11.0 Absolute Nucleated RBC 0.060 H Nucleated RBC % (auto) 2.6 H VBG pH 7.43 VBG pCO2 35 VBG pO2 61 VBG HCO3 23 VBG O2 Saturation 88.0 VBG Base Excess -0.1 Anion Gap 14 Estim Creat Clear Calc 90.4 Estimated GFR > 60 Random Glucose 184 H Calcium 8.7 D Vitamin B12 631 Folate 16.8 TSH 1.72 Random Vancomycin 21.6 H Microbiology Microbiology Results: Microbiology 11/03/24 11:30 Blood Culture - Preliminary Blood - Venous No growth after 48 hours. 11/03/24 11:26 Blood Culture - Preliminary Blood - Venous No growth after 48 hours. Assessment and Plan (1) Pneumonia: Status: Acute (2) Hypoxia: Status: Acute Plan 73 year old male with history of metastatic colon cancer with Mets to the liver and lung currently undergoing chemotherapy with FOLFIRI followed by Dr. Beck and Alexa [place] who was brought into the emergency department for evaluation of foot pain hypoxia found to have fever and probable pneumonia Neutropenic fever/severe sepsis/acute hypoxic respiratory failure Due to pneumonia in a patient with metastatic cancer undergoing chemotherapy, last chemo reportedly 10/23 tachycardia, tachypnea, fever-improving leukopenia worsening RPP negative, blood culture pending Lactic acid 2.6 - improved with IVF cta chest-no pulm emboli,Concerning pulmonary edema and bilateral pleural effusions, moderate volume on the right and small volume on the left.Probable hepatocellular dysfunction/cirrhosis. echo: Technically limited study due to body habitus 2. Normal LV ejection fraction of 60 65% with moderate LVH 3. Cardiac valvular Dopplers within normal limits 4. On some views right ventricular appears to be enlarged although systolic function is difficult to determine. 5. Small pericardial effusion more prominent near the left ventricle. plan: tachycardia mulrfactorial(see above) trend CBC -leucocytosis seems improving blood cultures neg@48hrs add bnp. continue IV Zosyn and vancomycin cta shows -possible pulm edema -added lasix 20 mg iv bid.wean oxygen as tolerated d/w hematology /oncology-s/p granix( 2 doses) due to neutropenia. Id eval for antibiotics . if continue to worsen may need pulm eval metastatic colon ca with mets to liver and lungs s/p low anterior resection currently undergoing chemotherapy chronic pancytopenia continue chronic pain medication oncology follwing Acute toxic metabolic encephalopathy Due to above-seems improving Brain CT negative, no focal deficits Left foot fractures, chronic symptomatic support NWB on left foot will need PT eval prior to discharge elevated troponin no chest pain repeat troponin pending likely elevated due to demand from sepsis HTN hold captopril for sepsis, soft BP resume as bp tolerates mood continue baseline meds Coccyx Etiology: ??Stage 3 Pressure Injury Present on Admission local wound care plan: 1. Turn and Reposition every 2 hours and as needed for patient comfort.? Use pillows or wedges to support off loading positions. 2. Off Load all bony prominences with use of pillows and heel boots if needed.? Apply Preventative foams where needed. ? 3. Monitor for incontinence and moisture control, use barrier creams when needed for prevention and treatment. 4. Provide adequate and supplemental nutrition.? 5. Continue low air loss mattress. 6. When applicable maintain blood glucose levels per Providers order. Coccyx - Off Load Pressure with Q2 hr turns and use of pillows - Cleanse with PH balance spray or wipes, pat dry. ?Apply thin layer of Triad to wound bed - only pat and dab no scrub and rub when soiling occurs. Reapply thin layer PRN after each episode of incontinence. morbid obesity BMI 39.5 weight loss encouraged BPH continue terazosin BRANDON not on cpap dvt ppx - mechanical devices, continue baseline Eliquis - unclear why pt takes blood thinner ongoing need for stay in the hospital for management of severe sepsis requiring IV antibiotics, IV fluid and close monitoring, iv lasix, renal function electrolyte monitoring Quality Stroke Does the patient have a stroke diagnosis?: No VTE Prior VTE?: No VTE Risk Level:: Medical - moderate - high VTE Device Contraindication: N/A - Device Ordered VTE Drug Contraindication: N/A - Med Ordered
[2024-11-06 15:28] LABS: B Type Natriuretic Peptide 164 pg/mL (<100)
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
[2024-11-06] MEDS: Furosemide 20 MG/2 ML VIAL IVPUSH (17:49)
[2024-11-07] VITALS (8 sets, daily range): BP systolic 102–168; BP diastolic 65–78; PULSE 75–112; RESP 12–21; TEMP 36.1–36.7; O2SAT 91–94; BMI 39.6
[2024-11-07] MEDS: Furosemide 20 MG/2 ML VIAL IVPUSH ×2 (07:53→11:47)
[2024-11-07] MEDS: Erythromycin Base 0.5% Oph Oin 1 GM TUBE 1 CM EYE-LEFT ×2 (08:03→20:42)
[2024-11-07] MEDS: 0.9 % Sodium Chloride Flush 3 ML SYRINGE IVFLUSH ×2 (08:04→18:23)
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
--- NOTE | 2024-11-07 09:53 | ECG_ITS ---
Test Reason : chest pain Blood Pressure : */* mmHG Vent. Rate : 123 BPM Atrial Rate : 123 BPM P-R Int : 138 ms QRS Dur : 134 ms QT Int : 352 ms P-R-T Axes : 40 -29 196 degrees QTcB Int : 503 ms Sinus tachycardia with Premature atrial complexes Right bundle branch block T wave abnormality, consider anterolateral ischemia Abnormal ECG When compared with ECG of 06-Nov-2024 09:03, QRS duration has increased Criteria for Septal infarct are no longer Present Nonspecific T wave abnormality now evident in Inferior leads Referred By: Lit Peng Electronically Signed By: SONA MEYER MD
[2024-11-07 10:23] LABS: Venous Blood Gas Refer to POC result
[2024-11-07 10:24] LABS: VBG HCO3 28 mmol/L (22-26); VBG O2 % Saturation 66.0 %
[2024-11-07 10:26] LABS: Mean Corpuscular Volume 93.8 fL (80.0-98.0); PLT CLUMP 1
[2024-11-07 10:27] LABS: Hematocrit 27.1 % (42.0-52.0); Hemoglobin 9.2 g/dl (14.0-18.0); Mean Corpuscular HGB Conc 33.9 g/dl (31.0-36.0); Mean Corpuscular Hemoglobin 31.8 pg (27.0-33.0); NRBC Abs Auto 0.070 X10*3/uL (0.0-0.012); NRBC Pct Auto 0.9 /100WBC (0.0-0.2); Red Blood Count 2.89 X10*6/uL (4.60-5.80)
[2024-11-07 10:30] LABS: Platelet Count 108 X10*3/uL (160-400); White Blood Count 7.9 X10*3/uL (4.8-10.8)
[2024-11-07 10:33] LABS: Ammonia 31 umol/L (13-55)
[2024-11-07 10:41] LABS: Alanine Aminotransferase 46 U/L (0-40); Albumin Level 2.6 g/dL (3.5-5.0); Alkaline Phosphatase 87 U/L (39-117); Anion Gap 11 (12-20); Aspartate Amino Transferase 35 U/L (5-37); Blood Urea Nitrogen 16 mg/dL (9-16); Calcium 8.8 mg/dL (8.4-10.2); Carbon Dioxide 28 mmol/L (22-29); Chloride 105 mmol/L (96-108); Creatinine Clr Calc Pharmacy 84.8; Estimated Glomerular Filt Rate > 60; Potassium 3.2 mmol/L (3.3-5.1); Sodium 141 mmol/L (135-145); Total Protein 4.9 g/dL (6.5-8.0)
[2024-11-07 10:47] LABS: B Type Natriuretic Peptide 134 pg/mL (<100)
[2024-11-07 10:55] LABS: Troponin-I High Sensitivity 168.2 ng/L (<3.5-35.0)
--- NOTE | 2024-11-07 11:00 | P.PNIM_ITS ---
Subjective Subjective Date of Service: 11/07/24 Interval History: worsening hypoxemic failure Review of Systems sob , mild confusion this morning but improving has some pleurtic discomfort with deep breathing oxygen demand similar Review of Systems: Yes all other systems are reviewed and are negative Physical Exam 2 Exam: Exam: Appearance: Alert.? Oriented X3.? cvs: rrr, [id number] . res: air entry seems similar ,diminshded at bases . abd: no rebound or guarding ,nt, bs present. ext pulses present , no cyanosis . neuro: axo3 , nonfocal. Vital Signs: Vital Signs: Last Vital Signs Temp 97.5 F 11/07/24 07:38 Pulse 104 H 11/07/24 07:38 Resp 21 H 11/07/24 07:38 BP 168/78 H 11/07/24 07:53 Pulse Ox 92 11/07/24 07:38 O2 Del Method Nasal Cannula 11/07/24 07:38 O2 Flow Rate 5 11/07/24 07:38 BMI result Body Mass Index 39.6 Objective Data Active Medications Acetaminophen (Acetaminophen 325 Mg Tablet) 975 mg PO Q6H PRN PRN Reason: Pain, Mild 1-3,fever,headache Last Admin: 11/06/24 05:41 Dose: 975 mg Documented By: SHARRI Albuterol/Ipratropium (Albuterol/Iprat 2.5/0.5mg 3 Ml Ampul.Neb) 3 ml INHALE RQ4H WHILE AWAKE PRN PRN Reason: Wheezing Apixaban (Apixaban 2.5 Mg Tablet) 2.5 mg PO BID [facility] Last Admin: 11/07/24 08:02 Dose: 2.5 mg Documented By: CJ Ascorbic Acid (Ascorbic Acid 500 Mg Tablet) 1,000 mg PO DAILY [facility] Last Admin: 11/07/24 08:02 Dose: 1,000 mg Documented By: CJ Cyclobenzaprine HCl (Cyclobenzaprine Hcl 10 Mg Tablet) 10 mg PO TID [facility] Last Admin: 11/07/24 08:03 Dose: 10 mg Documented By: CJ Diphenoxylate HCl/Atropine (Diphenoxylate/Atrop 2.5/0.025 Tablet) 1 tab PO QID PRN PRN Reason: Diarrhea Doxazosin Mesylate (Doxazosin Mesylate 2 Mg Tablet) 4 mg PO BEDTIME [facility] Last Admin: 11/06/24 20:39 Dose: 4 mg Documented By: SHARRI Erythromycin (Erythromycin Base 0.5% Oph Oin 1 Gm Tube) 1 cm EYE-LEFT BID [facility] Last Admin: 11/07/24 08:03 Dose: 1 cm Documented By: CJ Furosemide (Furosemide 20 Mg/2 Ml Vial) 40 mg IVPUSH BID@0900,1800 [facility]; Protocol Furosemide (Furosemide 20 Mg/2 Ml Vial) 20 mg IVPUSH ONCE ONE; Protocol Stop: 11/07/24 11:00 Gabapentin (Gabapentin 300 Mg Capsule) 300 mg PO TID [facility] Last Admin: 11/07/24 08:02 Dose: 300 mg Documented By: CJ Guaifenesin/Dextromethorphan (Guaifenesin Dm 100/10/5 Ml 5 Ml Syrup) 5 ml PO Q6H PRN PRN Reason: Cough Last Admin: 11/06/24 15:37 Dose: 5 ml Documented By: CJ Hydromorphone HCl (Hydromorphone Hcl 2 Mg Tablet) 4 mg PO BID PRN PRN Reason: Pain (Scale Score 4-6) Last Admin: 11/06/24 20:39 Dose: 4 mg Documented By: SHARRI Hydromorphone HCl (Hydromorphone Hcl 2 Mg Tablet) 4 mg PO DAILY PRN PRN Reason: Pain (Scale Score 7-10) Last Admin: 11/06/24 05:42 Dose: 4 mg Documented By: SHARRI Piperacillin Sod/Tazobactam (Sod 4.5 gm/ Sodium Chloride) 100 mls @ 200 mls/hr IV Q6H [facility] Last Infusion: 11/07/24 07:25 Dose: Infused Documented By: SHARRI Vancomycin HCl 1,000 mg/ (Sodium Chloride) 270 mls @ 270 mls/hr IV Q12H [facility] Last Infusion: 11/07/24 08:55 Dose: Infused Documented By: CJ Lidocaine/Diphenhydr/Alum/Mg/Simeth (Mag&Al/Sim/Diphenhyd/Lidocaine 10 Ml Oral.Susp) 10 ml PO Q4H PRN PRN Reason: Mouth Sore Pain Methylprednisolone Sodium Succinate (Methylprednisolone Sod Succ 125 Mg/2 Ml Vial) 60 mg IVPUSH Q8H [facility] Ondansetron HCl (Ondansetron Hcl 4 Mg/2 Ml Vial) 4 mg IVPUSH Q8H PRN PRN Reason: Nausea and Vomiting Pharmacy Consult (Consult Rx Vancomycin Dosing) 1 each MISCELLANE DAILY PRN PRN Reason: Consult order Polyethylene Glycol (Polyethylene Glycol 3350 17 Gm Powd.Pack) 17 gm PO DAILY PRN PRN Reason: Constipation Potassium Chloride (Potassium Chloride Er 20 Meq Tab.Er.Prt) 20 meq PO ONCE ONE Stop: 11/07/24 10:56 Sertraline HCl (Sertraline Hcl 50 Mg Tablet) 50 mg PO DAILY [facility] Last Admin: 11/07/24 08:04 Dose: 50 mg Documented By: CJ Sodium Chloride (0.9 % Sodium Chloride Flush 3 Ml Syringe) 3 ml IVFLUSH QSHIFT [facility] Last Admin: 11/07/24 08:04 Dose: 3 ml Documented By: CJ Venlafaxine HCl (Venlafaxine Hcl 25 Mg Tablet) 75 mg PO DAILY [facility] Last Admin: 11/07/24 08:02 Dose: 75 mg Documented By: CJ Vitamin D (Cholecalciferol (Vitamin D3) 25 Mcg Tablet) 50 mcg PO BID [facility] Last Admin: 11/07/24 08:02 Dose: 50 mcg Documented By: CJ Zolpidem Tartrate (Zolpidem Tartrate 5 Mg Tablet) 5 mg PO BEDTIME PRN PRN Reason: Sleep Last Admin: 11/06/24 20:38 Dose: 5 mg Documented By: SHARRI Labs 11/07/24 10:11 11/07/24 10:11 Labs: Laboratory Results - last 24 hr 11/06/24 11/06/24 11/07/24 14:59 18:17 10:11 MCV Cancelled MCH MCHC RDW Plt Count MPV Absolute Nucleated RBC Nucleated RBC % (auto) VBG pH VBG pCO2 VBG pO2 VBG HCO3 VBG O2 Saturation VBG Base Excess Anion Gap Estim Creat Clear Calc Estimated GFR Random Glucose Calcium Total Bilirubin Direct Bilirubin AST ALT Alkaline Phosphatase Ammonia Lactate Dehydrogenase B-Natriuretic Peptide 164 H Total Protein Albumin Random Vancomycin 9.0 L 11/07/24 11/07/2425 10:11 10:11 10:11 MCV 93.8 MCH Cancelled 31.8 MCHC Cancelled 33.9 RDW Cancelled Plt Count MPV Absolute Nucleated RBC Nucleated RBC % (auto) VBG pH VBG pCO2 VBG pO2 VBG HCO3 VBG O2 Saturation VBG Base Excess Anion Gap Estim Creat Clear Calc Estimated GFR Random Glucose Calcium Total Bilirubin Direct Bilirubin AST ALT Alkaline Phosphatase Ammonia Lactate Dehydrogenase B-Natriuretic Peptide Total Protein Albumin Random Vancomycin 11/07/24 11/07/24 11/07/24 10:11 10:11 10:11 MCV MCH MCHC RDW 15.4 Plt Count Cancelled 108 L D MPV Cancelled 11.1 Absolute Nucleated RBC Cancelled Nucleated RBC % (auto) VBG pH VBG pCO2 VBG pO2 VBG HCO3 VBG O2 Saturation VBG Base Excess Anion Gap Estim Creat Clear Calc Estimated GFR Random Glucose Calcium Total Bilirubin Direct Bilirubin AST ALT Alkaline Phosphatase Ammonia Lactate Dehydrogenase B-Natriuretic Peptide Total Protein Albumin Random Vancomycin 11/07/24 11/07/24 11/07/24 10:11 10:11 10:11 MCV MCH MCHC RDW Plt Count MPV Absolute Nucleated RBC 0.070 H Nucleated RBC % (auto) Cancelled 0.9 H VBG pH VBG pCO2 VBG pO2 VBG HCO3 VBG O2 Saturation VBG Base Excess Anion Gap 11 L Cancelled Estim Creat Clear Calc 84.8 Estimated GFR Random Glucose Calcium Total Bilirubin Direct Bilirubin AST ALT Alkaline Phosphatase Ammonia Lactate Dehydrogenase B-Natriuretic Peptide Total Protein Albumin Random Vancomycin 11/07/24 11/07/24 11/07/24 10:11 10:11 10:11 MCV MCH MCHC RDW Plt Count MPV Absolute Nucleated RBC Nucleated RBC % (auto) VBG pH VBG pCO2 VBG pO2 VBG HCO3 VBG O2 Saturation VBG Base Excess Anion Gap Estim Creat Clear Calc Cancelled Estimated GFR > 60 Cancelled Random Glucose 167 H Cancelled Calcium 8.8 Total Bilirubin Direct Bilirubin AST ALT Alkaline Phosphatase Ammonia Lactate Dehydrogenase B-Natriuretic Peptide Total Protein Albumin Random Vancomycin 11/07/24 11/07/24 10:11 10:18 MCV MCH MCHC RDW Plt Count MPV Absolute Nucleated RBC Nucleated RBC % (auto) VBG pH 7.42 VBG pCO2 44 VBG pO2 44 VBG HCO3 28 H VBG O2 Saturation 66.0 VBG Base Excess 4.0 Anion Gap Estim Creat Clear Calc Estimated GFR Random Glucose Calcium Cancelled Total Bilirubin 0.5 Direct Bilirubin 0.2 AST 35 ALT 46 H Alkaline Phosphatase 87 Ammonia 31 Lactate Dehydrogenase 432 H B-Natriuretic Peptide 134 H Total Protein 4.9 L Albumin 2.6 L Random Vancomycin Assessment and Plan (1) Pneumonia: Status: Acute (2) Hypoxia: Status: Acute Plan 73 year old male with history of metastatic colon cancer with Mets to the liver and lung currently undergoing chemotherapy with FOLFIRI followed by Dr[facility] who was brought into the emergency department for evaluation of foot pain hypoxia found to have fever and probable pneumonia Neutropenic fever/severe sepsis/acute hypoxic respiratory failure Due to pneumonia in a patient with metastatic cancer undergoing chemotherapy, last chemo reportedly 10/23 no new fevers hr flactautes with excersion leukopenia improved RPP negative, blood culture negative @48hrs acute Lactic acidosis resolved cta chest-no pulm emboli,Concerning pulmonary edema and bilateral pleural effusions, moderate volume on the right and small volume on the left.Probable hepatocellular dysfunction/cirrhosis. echo: Technically limited study due to body habitus 2. Normal LV ejection fraction of 60 65% with moderate LVH 3. Cardiac valvular Dopplers within normal limits 4. On some views right ventricular appears to be enlarged although systolic function is difficult to determine. 5. Small pericardial effusion more prominent near the left ventricle. CXr: Worsening asymmetric right-sided pulmonary edema versus pneumonitis versus multifocal pneumonia. Persistent left-sided pleural effusion and compression atelectasis versus airspace disease. plan: sob worsening this morning tachycardia mulrfactorial(see above) trend CBC -leucocytosis seems improving blood cultures neg@48hrs bnp elevated . nasal mrsa screen continue IV Zosyn and vancomycin, d/w pulm above -added iv steriods cta shows -possible pulm edema -adjusted 40 mg iv bid.wean oxygen as tolerated d/w hematology /oncology-s/p granix( 2 doses) due to neutropenia. Id eval and pulm eval following Icu EVal added metastatic colon ca with mets to liver and lungs s/p low anterior resection currently undergoing chemotherapy chronic pancytopenia continue chronic pain medication oncology follwing Acute toxic metabolic encephalopathy Due to above-seems improving Brain CT negative, no focal deficits Left foot fractures, chronic symptomatic support NWB on left foot will need PT eval prior to discharge elevated troponin no chest pain repeat troponin pending likely elevated due to demand from sepsis HTN hold captopril for sepsis, soft BP resume as bp tolerates mood continue baseline meds Coccyx Etiology: ??Stage 3 Pressure Injury Present on Admission local wound care plan: 1. Turn and Reposition every 2 hours and as needed for patient comfort.? Use pillows or wedges to support off loading positions. 2. Off Load all bony prominences with use of pillows and heel boots if needed.? Apply Preventative foams where needed. ? 3. Monitor for incontinence and moisture control, use barrier creams when needed for prevention and treatment. 4. Provide adequate and supplemental nutrition.? 5. Continue low air loss mattress. 6. When applicable maintain blood glucose levels per Providers order. Coccyx - Off Load Pressure with Q2 hr turns and use of pillows - Cleanse with PH balance spray or wipes, pat dry. ?Apply thin layer of Triad to wound bed - only pat and dab no scrub and rub when soiling occurs. Reapply thin layer PRN after each episode of incontinence. morbid obesity BMI 39.5 weight loss encouraged BPH continue terazosin BRANDON not on cpap dvt ppx - mechanical devices, continue baseline Eliquis - unclear why pt takes blood thinner ongoing need for stay in the hospital for management of severe sepsis requiring IV antibiotics, IV fluid and close monitoring, iv lasix, renal function electrolyte monitoring Family updated in detail, total time spent 70 minute Quality Stroke Does the patient have a stroke diagnosis?: No VTE Prior VTE?: No VTE Risk Level:: Medical - moderate - high VTE Device Contraindication: N/A - Device Ordered VTE Drug Contraindication: N/A - Med Ordered
[2024-11-07] MEDS: Potassium Chloride ER 20 MEQ TAB.ER.PRT PO (11:05)
[2024-11-07 11:18] LABS: Magnesium 1.6 mg/dL (1.6-2.6)
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
[2024-11-07 15:33] LABS: Troponin-I High Sensitivity 174.1 ng/L (<3.5-35.0)
[2024-11-07 17:24] LABS: MRSA Nasal PCR NEGATIVE (Negative); SA Nasal PCR POSITIVE (Negative)
[2024-11-07] MEDS: Furosemide 20 MG/2 ML VIAL 40 MG IVPUSH (18:23)
[2024-11-08] VITALS (8 sets, daily range): BP systolic 130–170; BP diastolic 73–93; PULSE 71–110; RESP 12–20; TEMP 36.2–36.7; O2SAT 87–99; BMI 42.3
[2024-11-08 06:46] LABS: Hematocrit 25.0 % (42.0-52.0); Hemoglobin 8.6 g/dl (14.0-18.0); Mean Corpuscular HGB Conc 34.4 g/dl (31.0-36.0); Mean Corpuscular Hemoglobin 32.0 pg (27.0-33.0); Mean Corpuscular Volume 92.9 fL (80.0-98.0); NRBC Abs Auto 0.070 X10*3/uL (0.0-0.012); NRBC Pct Auto 0.7 /100WBC (0.0-0.2); Platelet Count 105 X10*3/uL (160-400); Red Blood Count 2.69 X10*6/uL (4.60-5.80); White Blood Count 10.5 X10*3/uL (4.8-10.8)
[2024-11-08 07:15] LABS: Anion Gap 15 (12-20); Blood Urea Nitrogen 20 mg/dL (9-16); Calcium 8.5 mg/dL (8.4-10.2); Carbon Dioxide 27 mmol/L (22-29); Chloride 101 mmol/L (96-108); Creatinine Clr Calc Pharmacy 72.3; Estimated Glomerular Filt Rate 51; Potassium 3.6 mmol/L (3.3-5.1); Sodium 139 mmol/L (135-145)
[2024-11-08 07:17] LABS: B Type Natriuretic Peptide 154 pg/mL (<100)
[2024-11-08 08:06] LABS: Glucose, Whole Blood 309 mg/dL (60-115)
[2024-11-08] MEDS: 0.9 % Sodium Chloride Flush 3 ML SYRINGE IVFLUSH ×2 (08:48→14:56)
[2024-11-08] MEDS: Furosemide 20 MG/2 ML VIAL 40 MG IVPUSH ×2 (08:49→17:08)
[2024-11-08] MEDS: Mag&Al/Sim/Diphenhyd/Lidocaine 10 ML ORAL.SUSP PO (08:59)
[2024-11-08] MEDS: guaiFENesin 200 MG/10 ML 10 ML LIQUID PO ×2 (09:03→17:08)
[2024-11-08] MEDS: Erythromycin Base 0.5% Oph Oin 1 GM TUBE 1 CM EYE-LEFT ×2 (09:03→22:32)
--- NOTE | 2024-11-08 09:25 | P.PNPL_ITS ---
Subjective Subjective Date of Service: 11/08/24 Interval history: The patient was seen on exam. Still requiring high levels of oxygen. Quickly desaturates. 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 He did have a CTA of the brain and also underwent a repeat chest x- ray yesterday and today. It appears to be interval worsening of the parenchymal opacities right much worse than left. 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 Contemplating bronchoscopy although be high risk. No real therapeutic component of the bronchoscopy just diagnostic. But even so the results will take awhile to come back. Will go ahead and just treat him empirically for now for smoldering immunocompromised conditions. Objective Data Labs 11/08/24 06:30 11/08/24 06:30 Labs: Laboratory Results - last 24 hr 11/07/24 11/07/24 11/07/24 10:11 10:11 10:11 WBC Cancelled 7.9 RBC Cancelled 2.89 L Hgb Cancelled Hct MCV MCH MCHC RDW Plt Count MPV Absolute Nucleated RBC Nucleated RBC % (auto) ESR VBG pH VBG pCO2 VBG pO2 VBG HCO3 VBG O2 Saturation VBG Base Excess Sodium Potassium Chloride Carbon Dioxide Anion Gap BUN Creatinine Estim Creat Clear Calc Estimated GFR POC Glucose Random Glucose Calcium Magnesium Total Bilirubin Direct Bilirubin AST ALT Alkaline Phosphatase Ammonia Lactate Dehydrogenase Troponin I High Sens B-Natriuretic Peptide Total Protein Albumin Nasal Screen MRSA (PCR) Nasal S. aureus Screen Nasal MRSA/S.aureus Interp Random Vancomycin 11/07/24 11/07/24 11/07/24 10:11 10:11 10:11 WBC RBC Hgb 9.2 L Hct Cancelled 27.1 L MCV Cancelled 93.8 MCH Cancelled MCHC RDW Plt Count MPV Absolute Nucleated RBC Nucleated RBC % (auto) ESR VBG pH VBG pCO2 VBG pO2 VBG HCO3 VBG O2 Saturation VBG Base Excess Sodium Potassium Chloride Carbon Dioxide Anion Gap BUN Creatinine Estim Creat Clear Calc Estimated GFR POC Glucose Random Glucose Calcium Magnesium Total Bilirubin Direct Bilirubin AST ALT Alkaline Phosphatase Ammonia Lactate Dehydrogenase Troponin I High Sens B-Natriuretic Peptide Total Protein Albumin Nasal Screen MRSA (PCR) Nasal S. aureus Screen Nasal MRSA/S.aureus Interp Random Vancomycin 11/07/24 11/07/24 11/07/24 10:11 10:11 10:11 WBC RBC Hgb Hct MCV MCH 31.8 MCHC Cancelled 33.9 RDW Cancelled 15.4 Plt Count Cancelled MPV Absolute Nucleated RBC Nucleated RBC % (auto) ESR VBG pH VBG pCO2 VBG pO2 VBG HCO3 VBG O2 Saturation VBG Base Excess Sodium Potassium Chloride Carbon Dioxide Anion Gap BUN Creatinine Estim Creat Clear Calc Estimated GFR POC Glucose Random Glucose Calcium Magnesium Total Bilirubin Direct Bilirubin AST ALT Alkaline Phosphatase Ammonia Lactate Dehydrogenase Troponin I High Sens B-Natriuretic Peptide Total Protein Albumin Nasal Screen MRSA (PCR) Nasal S. aureus Screen Nasal MRSA/S.aureus Interp Random Vancomycin 11/07/24 11/07/24 11/07/24 10:11 10:11 10:11 WBC RBC Hgb Hct MCV MCH MCHC RDW Plt Count 108 L D MPV Cancelled 11.1 Absolute Nucleated RBC Cancelled 0.070 H Nucleated RBC % (auto) Cancelled ESR VBG pH VBG pCO2 VBG pO2 VBG HCO3 VBG O2 Saturation VBG Base Excess Sodium Potassium Chloride Carbon Dioxide Anion Gap BUN Creatinine Estim Creat Clear Calc Estimated GFR POC Glucose Random Glucose Calcium Magnesium Total Bilirubin Direct Bilirubin AST ALT Alkaline Phosphatase Ammonia Lactate Dehydrogenase Troponin I High Sens B-Natriuretic Peptide Total Protein Albumin Nasal Screen MRSA (PCR) Nasal S. aureus Screen Nasal MRSA/S.aureus Interp Random Vancomycin 11/07/24 11/07/24 11/07/24 10:11 10:11 10:11 WBC RBC Hgb Hct MCV MCH MCHC RDW Plt Count MPV Absolute Nucleated RBC Nucleated RBC % (auto) 0.9 H ESR 67 H VBG pH VBG pCO2 VBG pO2 VBG HCO3 VBG O2 Saturation VBG Base Excess Sodium 141 Cancelled Potassium 3.2 L D Cancelled Chloride 105 Carbon Dioxide Anion Gap BUN Creatinine Estim Creat Clear Calc Estimated GFR POC Glucose Random Glucose Calcium Magnesium Total Bilirubin Direct Bilirubin AST ALT Alkaline Phosphatase Ammonia Lactate Dehydrogenase Troponin I High Sens B-Natriuretic Peptide Total Protein Albumin Nasal Screen MRSA (PCR) Nasal S. aureus Screen Nasal MRSA/S.aureus Interp Random Vancomycin 11/07/24 11/07/24 11/07/24 10:11 10:11 10:11 WBC RBC Hgb Hct MCV MCH MCHC RDW Plt Count MPV Absolute Nucleated RBC Nucleated RBC % (auto) ESR VBG pH VBG pCO2 VBG pO2 VBG HCO3 VBG O2 Saturation VBG Base Excess Sodium Potassium Chloride Cancelled Carbon Dioxide 28 Cancelled Anion Gap 11 L Cancelled BUN 16 Creatinine Estim Creat Clear Calc Estimated GFR POC Glucose Random Glucose Calcium Magnesium Total Bilirubin Direct Bilirubin AST ALT Alkaline Phosphatase Ammonia Lactate Dehydrogenase Troponin I High Sens B-Natriuretic Peptide Total Protein Albumin Nasal Screen MRSA (PCR) Nasal S. aureus Screen Nasal MRSA/S.aureus Interp Random Vancomycin 11/07/24 11/07/24 11/07/24 10:11 10:11 10:11 WBC RBC Hgb Hct MCV MCH MCHC RDW Plt Count MPV Absolute Nucleated RBC Nucleated RBC % (auto) ESR VBG pH VBG pCO2 VBG pO2 VBG HCO3 VBG O2 Saturation VBG Base Excess Sodium Potassium Chloride Carbon Dioxide Anion Gap BUN Cancelled Creatinine 1.12 Cancelled Estim Creat Clear Calc 84.8 Cancelled Estimated GFR > 60 POC Glucose Random Glucose Calcium Magnesium Total Bilirubin Direct Bilirubin AST ALT Alkaline Phosphatase Ammonia Lactate Dehydrogenase Troponin I High Sens B-Natriuretic Peptide Total Protein Albumin Nasal Screen MRSA (PCR) Nasal S. aureus Screen Nasal MRSA/S.aureus Interp Random Vancomycin 11/07/24 11/07/24 11/07/24 10:11 10:11 10:11 WBC RBC Hgb Hct MCV MCH MCHC RDW Plt Count MPV Absolute Nucleated RBC Nucleated RBC % (auto) ESR VBG pH VBG pCO2 VBG pO2 VBG HCO3 VBG O2 Saturation VBG Base Excess Sodium Potassium Chloride Carbon Dioxide Anion Gap BUN Creatinine Estim Creat Clear Calc Estimated GFR Cancelled POC Glucose Random Glucose 167 H Cancelled Calcium 8.8 Cancelled Magnesium 1.6 Total Bilirubin 0.5 Direct Bilirubin 0.2 AST 35 ALT 46 H Alkaline Phosphatase 87 Ammonia 31 Lactate Dehydrogenase 432 H Troponin I High Sens 168.2 H* D B-Natriuretic Peptide 134 H Total Protein 4.9 L Albumin 2.6 L Nasal Screen MRSA (PCR) Nasal S. aureus Screen Nasal MRSA/S.aureus Interp Random Vancomycin 11/07/24 11/07/24 11/07/24 10:18 14:55 15:45 WBC RBC Hgb Hct MCV MCH MCHC RDW Plt Count MPV Absolute Nucleated RBC Nucleated RBC % (auto) ESR VBG pH 7.42 VBG pCO2 44 VBG pO2 44 VBG HCO3 28 H VBG O2 Saturation 66.0 VBG Base Excess 4.0 Sodium Potassium Chloride Carbon Dioxide Anion Gap BUN Creatinine Estim Creat Clear Calc Estimated GFR POC Glucose Random Glucose Calcium Magnesium Total Bilirubin Direct Bilirubin AST ALT Alkaline Phosphatase Ammonia Lactate Dehydrogenase Troponin I High Sens 174.1 H* B-Natriuretic Peptide Total Protein Albumin Nasal Screen MRSA (PCR) NEGATIVE Nasal S. aureus Screen POSITIVE A Nasal MRSA/S.aureus Interp SEE NOTE Random Vancomycin 18.9 11/08/24 11/08/24 11/08/24 06:30 06:30 06:30 WBC 10.5 RBC 2.69 L Hgb 8.6 L Hct 25.0 L MCV 92.9 MCH 32.0 MCHC 34.4 RDW 15.8 Plt Count 105 L MPV 10.4 Absolute Nucleated RBC 0.070 H Nucleated RBC % (auto) 0.7 H ESR VBG pH VBG pCO2 VBG pO2 VBG HCO3 VBG O2 Saturation VBG Base Excess Sodium 139 Potassium 3.6 Chloride 101 Carbon Dioxide 27 Anion Gap 15 BUN 20 H Creatinine 1.36 Cancelled Estim Creat Clear Calc 72.3 Cancelled Estimated GFR 51 POC Glucose Random Glucose Calcium Magnesium Total Bilirubin Direct Bilirubin AST ALT Alkaline Phosphatase Ammonia Lactate Dehydrogenase Troponin I High Sens B-Natriuretic Peptide Total Protein Albumin Nasal Screen MRSA (PCR) Nasal S. aureus Screen Nasal MRSA/S.aureus Interp Random Vancomycin 11/08/24 11/08/24 11/08/24 06:30 06:31 08:02 WBC RBC Hgb Hct MCV MCH MCHC RDW Plt Count MPV Absolute Nucleated RBC Nucleated RBC % (auto) ESR VBG pH VBG pCO2 VBG pO2 VBG HCO3 VBG O2 Saturation VBG Base Excess Sodium Potassium Chloride Carbon Dioxide Anion Gap BUN Creatinine Estim Creat Clear Calc Estimated GFR Cancelled POC Glucose 309 H Random Glucose 356 H* Calcium 8.5 Magnesium Total Bilirubin Direct Bilirubin AST ALT Alkaline Phosphatase Ammonia Lactate Dehydrogenase Troponin I High Sens B-Natriuretic Peptide 154 H Total Protein Albumin Nasal Screen MRSA (PCR) Nasal S. aureus Screen Nasal MRSA/S.aureus Interp Random Vancomycin Microbiology Microbiology Results: Microbiology 11/03/24 11:30 Blood - Venous Blood Culture - Preliminary No growth after 48 hours. 11/03/24 11:26 Blood - Venous Blood Culture - Preliminary No growth after 48 hours. Review of Systems Review of Systems Const : no body aches, no chills, no excessive sweating and no fatigue Eyes: no blurry vision and no change in vision ENT: no bleeding gums and no change in voice, no dizziness Card: no chest pain, no shortness of breath, no orthopnea, no PND Resp: + cough, + SOB GI: no abdominal pain and no nausea, no vomiting : no hematuria, no urinary frequency and no difficulty voiding Musc: no abnormal gait, no bone pain Neuro: no abnormal movements, no weakness, no dizziness Psych: +mental status changes Endo: no change in body appearance Physical Exam 2 Vital Signs: Vital Signs: Last Vital Signs Temp 97.1 F 11/08/24 07:55 Pulse 71 11/08/24 07:55 Resp 20 11/08/24 07:55 BP 170/93 H 11/08/24 07:55 Pulse Ox 99 11/08/24 07:55 O2 Del Method Nasal Cannula 11/08/24 07:55 O2 Flow Rate 5 11/08/24 07:55 BMI result Body Mass Index 42.3 General: Elderly male in mild acute distress, chronically ill appearing and tired appearing Nutritional Appearance: well nourished and overweight Eyes: appearance normal, both eyes and all related structures; Alignment and Position: alignment normal and position normal Neck: No lymphadenopathy, no thyromegaly Resp: bilateral air entry equal, bilateral crackles heard Cardio: Regular rate, regular rhythm; Heart sounds: S1 normal heart sound present and S2 normal heart sound present GI: soft, nontender, no guarding, no hepatosplenomegaly : bladder normal to inspection, bladder normal to palpation, no renal angle tenderness Skin: no rashes or lesions noted and elasticity normal Neuro: oriented to person, oriented to place, oriented to time and moves all extremities Procedures Date of Service Date of Service: 11/08/24 Assessment and Plan Assessment and plan (1) Pneumonitis: Status: Acute (2) Acute hypoxemic respiratory failure: Status: Acute (3) Pneumonia: Status: Acute Plan Continue oxygen supplementation. If worsens may need high-flow Diuresis as tolerated Will decrease Solu-Medrol due to the psychosis Change antibiotics to Levaquin and Bactrim to treat for Legionella in addition to treat for PCP, atypical organisms staph aureus Holding off on bronchoscopy. Initially scheduled for tomorrow but with the worsening condition it is likely that he may not tolerate the anesthesia or the intervention. Will be for diagnostic purposes in the likely the laboratory data will not be available quickly enough to really make a significant difference. Therefore will just treat him empirically at this time. Will reassess tomorrow . Time Spent With Patient Time: Total time managing care of this patient today ____ minutes. Progress Note: Quality Stroke Does the patient have a stroke diagnosis?: No
--- NOTE | 2024-11-08 09:51 | PM.PNCARD ---
Subjective Subjective Date of Service: 11/08/24 Principal diagnosis: Hypoxemic respiratory failure, sepsis Interval history: Patient said he is breathing a lot better. Shortness of breath is improved in his chest pressure is improved. Yesterday troponin was drawn which was flat and mildly elevated. This is most suggestive of probably subendocardial strain related to CHF. He has diuresed about 4 L since yesterday. Oxygenation has improved. Mental status and confusion in his slightly improved although still remains somewhat confused. Denies any chest pain today. No significant tachycardia. Heart rate is settled down Review of Systems Constitutional: Reports fatigue, Reports lethargy and Reports weakness Cardiovascular: Denies chest pain, Reports leg edema, Denies lightheadedness, Denies Loss of Consciousness and Reports dyspnea (Improve) Respiratory: Reports dyspnea (Improve) Genitourinary: Reports no additional male genitourinary complaints Skin/Breast: Reports system reviewed and no additional complaints, except as docu Reports weakness Endocrine: Reports fatigue Physical Exam Vital Signs: Last Vital Signs Temp 97.1 F 11/08/24 07:55 Pulse 71 11/08/24 07:55 Resp 20 11/08/24 07:55 BP 170/93 H 11/08/24 07:55 Pulse Ox 99 11/08/24 07:55 O2 Del Method Nasal Cannula 11/08/24 07:55 O2 Flow Rate 5 11/08/24 07:55 BMI result Body Mass Index 42.3 Const General: cooperative, alert, awake and in distress mild and respiratory Nutritional Appearance: obese morbidly obese Neck Neck: Yes trachea midline, Yes supple and Yes other (Difficult to evaluate JVD) Resp Effort & Inspection: decreased respiratory effort Auscultation: diminished lung sounds Cardio Rate: regular rate Rhythm: regular rhythm Heart sounds: S1 normal heart sound present, S2 normal heart sound present, no click, no gallops and no murmurs GI Auscultation: normal bowel sounds Extrem General: No clubbing, No cyanosis and Yes edema Objective Labs and Meds 11/08/24 06:30 11/08/24 06:30 Lab results: Laboratory Results - last 24 hr 11/07/24 11/07/24 11/07/24 10:11 10:11 10:11 WBC Cancelled 7.9 RBC Cancelled 2.89 L Hgb Cancelled Hct MCV MCH MCHC RDW Plt Count MPV Absolute Nucleated RBC Nucleated RBC % (auto) ESR VBG pH VBG pCO2 VBG pO2 VBG HCO3 VBG O2 Saturation VBG Base Excess Sodium Potassium Chloride Carbon Dioxide Anion Gap BUN Creatinine Estim Creat Clear Calc Estimated GFR POC Glucose Random Glucose Calcium Magnesium Total Bilirubin Direct Bilirubin AST ALT Alkaline Phosphatase Ammonia Lactate Dehydrogenase Troponin I High Sens B-Natriuretic Peptide Total Protein Albumin Nasal Screen MRSA (PCR) Nasal S. aureus Screen Nasal MRSA/S.aureus Interp Random Vancomycin 11/07/24 11/07/24 11/07/24 10:11 10:11 10:11 WBC RBC Hgb 9.2 L Hct Cancelled 27.1 L MCV Cancelled 93.8 MCH Cancelled MCHC RDW Plt Count MPV Absolute Nucleated RBC Nucleated RBC % (auto) ESR VBG pH VBG pCO2 VBG pO2 VBG HCO3 VBG O2 Saturation VBG Base Excess Sodium Potassium Chloride Carbon Dioxide Anion Gap BUN Creatinine Estim Creat Clear Calc Estimated GFR POC Glucose Random Glucose Calcium Magnesium Total Bilirubin Direct Bilirubin AST ALT Alkaline Phosphatase Ammonia Lactate Dehydrogenase Troponin I High Sens B-Natriuretic Peptide Total Protein Albumin Nasal Screen MRSA (PCR) Nasal S. aureus Screen Nasal MRSA/S.aureus Interp Random Vancomycin 11/07/24 11/07/24 11/07/24 10:11 10:11 10:11 WBC RBC Hgb Hct MCV MCH 31.8 MCHC Cancelled 33.9 RDW Cancelled 15.4 Plt Count Cancelled MPV Absolute Nucleated RBC Nucleated RBC % (auto) ESR VBG pH VBG pCO2 VBG pO2 VBG HCO3 VBG O2 Saturation VBG Base Excess Sodium Potassium Chloride Carbon Dioxide Anion Gap BUN Creatinine Estim Creat Clear Calc Estimated GFR POC Glucose Random Glucose Calcium Magnesium Total Bilirubin Direct Bilirubin AST ALT Alkaline Phosphatase Ammonia Lactate Dehydrogenase Troponin I High Sens B-Natriuretic Peptide Total Protein Albumin Nasal Screen MRSA (PCR) Nasal S. aureus Screen Nasal MRSA/S.aureus Interp Random Vancomycin 11/07/24 11/07/24 11/07/24 10:11 10:11 10:11 WBC RBC Hgb Hct MCV MCH MCHC RDW Plt Count 108 L D MPV Cancelled 11.1 Absolute Nucleated RBC Cancelled 0.070 H Nucleated RBC % (auto) Cancelled ESR VBG pH VBG pCO2 VBG pO2 VBG HCO3 VBG O2 Saturation VBG Base Excess Sodium Potassium Chloride Carbon Dioxide Anion Gap BUN Creatinine Estim Creat Clear Calc Estimated GFR POC Glucose Random Glucose Calcium Magnesium Total Bilirubin Direct Bilirubin AST ALT Alkaline Phosphatase Ammonia Lactate Dehydrogenase Troponin I High Sens B-Natriuretic Peptide Total Protein Albumin Nasal Screen MRSA (PCR) Nasal S. aureus Screen Nasal MRSA/S.aureus Interp Random Vancomycin 11/07/24 11/07/24 11/07/24 10:11 10:11 10:11 WBC RBC Hgb Hct MCV MCH MCHC RDW Plt Count MPV Absolute Nucleated RBC Nucleated RBC % (auto) 0.9 H ESR 67 H VBG pH VBG pCO2 VBG pO2 VBG HCO3 VBG O2 Saturation VBG Base Excess Sodium 141 Cancelled Potassium 3.2 L D Cancelled Chloride 105 Carbon Dioxide Anion Gap BUN Creatinine Estim Creat Clear Calc Estimated GFR POC Glucose Random Glucose Calcium Magnesium Total Bilirubin Direct Bilirubin AST ALT Alkaline Phosphatase Ammonia Lactate Dehydrogenase Troponin I High Sens B-Natriuretic Peptide Total Protein Albumin Nasal Screen MRSA (PCR) Nasal S. aureus Screen Nasal MRSA/S.aureus Interp Random Vancomycin 11/07/24 11/07/24 11/07/24 10:11 10:11 10:11 WBC RBC Hgb Hct MCV MCH MCHC RDW Plt Count MPV Absolute Nucleated RBC Nucleated RBC % (auto) ESR VBG pH VBG pCO2 VBG pO2 VBG HCO3 VBG O2 Saturation VBG Base Excess Sodium Potassium Chloride Cancelled Carbon Dioxide 28 Cancelled Anion Gap 11 L Cancelled BUN 16 Creatinine Estim Creat Clear Calc Estimated GFR POC Glucose Random Glucose Calcium Magnesium Total Bilirubin Direct Bilirubin AST ALT Alkaline Phosphatase Ammonia Lactate Dehydrogenase Troponin I High Sens B-Natriuretic Peptide Total Protein Albumin Nasal Screen MRSA (PCR) Nasal S. aureus Screen Nasal MRSA/S.aureus Interp Random Vancomycin 11/07/24 11/07/24 11/07/24 10:11 10:11 10:11 WBC RBC Hgb Hct MCV MCH MCHC RDW Plt Count MPV Absolute Nucleated RBC Nucleated RBC % (auto) ESR VBG pH VBG pCO2 VBG pO2 VBG HCO3 VBG O2 Saturation VBG Base Excess Sodium Potassium Chloride Carbon Dioxide Anion Gap BUN Cancelled Creatinine 1.12 Cancelled Estim Creat Clear Calc 84.8 Cancelled Estimated GFR > 60 POC Glucose Random Glucose Calcium Magnesium Total Bilirubin Direct Bilirubin AST ALT Alkaline Phosphatase Ammonia Lactate Dehydrogenase Troponin I High Sens B-Natriuretic Peptide Total Protein Albumin Nasal Screen MRSA (PCR) Nasal S. aureus Screen Nasal MRSA/S.aureus Interp Random Vancomycin 11/07/24 11/07/24 11/07/24 10:11 10:11 10:11 WBC RBC Hgb Hct MCV MCH MCHC RDW Plt Count MPV Absolute Nucleated RBC Nucleated RBC % (auto) ESR VBG pH VBG pCO2 VBG pO2 VBG HCO3 VBG O2 Saturation VBG Base Excess Sodium Potassium Chloride Carbon Dioxide Anion Gap BUN Creatinine Estim Creat Clear Calc Estimated GFR Cancelled POC Glucose Random Glucose 167 H Cancelled Calcium 8.8 Cancelled Magnesium 1.6 Total Bilirubin 0.5 Direct Bilirubin 0.2 AST 35 ALT 46 H Alkaline Phosphatase 87 Ammonia 31 Lactate Dehydrogenase 432 H Troponin I High Sens 168.2 H* D B-Natriuretic Peptide 134 H Total Protein 4.9 L Albumin 2.6 L Nasal Screen MRSA (PCR) Nasal S. aureus Screen Nasal MRSA/S.aureus Interp Random Vancomycin 11/07/24 11/07/24 11/07/24 10:18 14:55 15:45 WBC RBC Hgb Hct MCV MCH MCHC RDW Plt Count MPV Absolute Nucleated RBC Nucleated RBC % (auto) ESR VBG pH 7.42 VBG pCO2 44 VBG pO2 44 VBG HCO3 28 H VBG O2 Saturation 66.0 VBG Base Excess 4.0 Sodium Potassium Chloride Carbon Dioxide Anion Gap BUN Creatinine Estim Creat Clear Calc Estimated GFR POC Glucose Random Glucose Calcium Magnesium Total Bilirubin Direct Bilirubin AST ALT Alkaline Phosphatase Ammonia Lactate Dehydrogenase Troponin I High Sens 174.1 H* B-Natriuretic Peptide Total Protein Albumin Nasal Screen MRSA (PCR) NEGATIVE Nasal S. aureus Screen POSITIVE A Nasal MRSA/S.aureus Interp SEE NOTE Random Vancomycin 18.9 11/08/24 11/08/24 11/08/24 06:30 06:30 06:30 WBC 10.5 RBC 2.69 L Hgb 8.6 L Hct 25.0 L MCV 92.9 MCH 32.0 MCHC 34.4 RDW 15.8 Plt Count 105 L MPV 10.4 Absolute Nucleated RBC 0.070 H Nucleated RBC % (auto) 0.7 H ESR VBG pH VBG pCO2 VBG pO2 VBG HCO3 VBG O2 Saturation VBG Base Excess Sodium 139 Potassium 3.6 Chloride 101 Carbon Dioxide 27 Anion Gap 15 BUN 20 H Creatinine 1.36 Cancelled Estim Creat Clear Calc 72.3 Cancelled Estimated GFR 51 POC Glucose Random Glucose Calcium Magnesium Total Bilirubin Direct Bilirubin AST ALT Alkaline Phosphatase Ammonia Lactate Dehydrogenase Troponin I High Sens B-Natriuretic Peptide Total Protein Albumin Nasal Screen MRSA (PCR) Nasal S. aureus Screen Nasal MRSA/S.aureus Interp Random Vancomycin 11/08/24 11/08/24 11/08/24 06:30 06:31 08:02 WBC RBC Hgb Hct MCV MCH MCHC RDW Plt Count MPV Absolute Nucleated RBC Nucleated RBC % (auto) ESR VBG pH VBG pCO2 VBG pO2 VBG HCO3 VBG O2 Saturation VBG Base Excess Sodium Potassium Chloride Carbon Dioxide Anion Gap BUN Creatinine Estim Creat Clear Calc Estimated GFR Cancelled POC Glucose 309 H Random Glucose 356 H* Calcium 8.5 Magnesium Total Bilirubin Direct Bilirubin AST ALT Alkaline Phosphatase Ammonia Lactate Dehydrogenase Troponin I High Sens B-Natriuretic Peptide 154 H Total Protein Albumin Nasal Screen MRSA (PCR) Nasal S. aureus Screen Nasal MRSA/S.aureus Interp Random Vancomycin Imaging Radiologist's impression: Impressions Head CT 11/07/24 10:36 IMPRESSION: No acute intracranial hemorrhage. Extensive white matter disease. Superimposed encephalopathy cannot be excluded. Electronically signed by: Carmelo Read MD 11/07/2024 11:22 AM EDT RP Chest X-Ray 11/07/24 11:30 IMPRESSION: Worsening asymmetric right-sided pulmonary edema versus pneumonitis versus multifocal pneumonia. Persistent left-sided pleural effusion and compression atelectasis versus airspace disease. Electronically signed by: Carmelo Read MD 11/07/2024 12:08 PM EDT RP Chest X-Ray 11/08/24 07:36 IMPRESSION: 1. Persistent opacity throughout the right lung consistent with pneumonia. 2. Left basilar atelectasis versus pneumonia. Electronically signed by: Herrera Molina MD 11/08/2024 07:57 AM EDT RP Progress Note: A&P Assessment and plan (1) Acute hypoxemic respiratory failure: Status: Acute Assessment and Plan: Acute hypoxemic respiratory failure which appears to be multifactorial with significant component of fluid overload. His hypoxemia and breathing has improved with diuresis diuresed about 4 L. Still appears to be fluid overloaded. This is probably due to fluid redistribution from probably treatment for sepsis. He has prior history of diastolic heart failure. Add Jardiance 10 mg to his regimen. Continue IV diuresis. Strict intake and output chart needs to be pursued. Overall prognosis remains guarded. Other additional reason for his hypoxemia appears to be poor ventilation due to obesity, also from pleural effusion as well as possible atelectasis underlying and underlying possible pneumonitis. Continue supportive care. Overall prognosis remains guarded. Arrhythmias have settled down at this point time and tachycardia settled down once improving heart failure syndrome. Continue to monitor renal function electrolytes. Time Spent With Patient Time: Total time managing care of this patient today ____ minutes. Progress Note: Quality Stroke Does the patient have a stroke diagnosis?: No Procedures Date of Service Date of Service: 11/08/24
--- NOTE | 2024-11-08 11:21 | MHC.CLN ---
F/U PT WITH INCREASED NUTRITION RISK R/T PRESSURE INJURY REGULAR DIET PO REMAINS GOOD RECEIVING ENSURE TID TO PROMOTE WOUND HEALING SUPP PROVIDES 1050KCALS, 60G PROTEIN NOTED WOUND CHANGED TO STAGE 3 MONITOR PO INTAKE AND ENCOURAGE SUPPLEMENTS
[2024-11-08] MEDS: Sulfamethox/Trimeth 800/160 TABLET 1 TAB PO ×2 (12:37→17:08)
--- NOTE | 2024-11-08 13:04 | HO.PM.IMPN ---
Subjective Subjective Date of Service: 11/08/24 Interval History: feeling better today Physical Exam Exam: Exam: General: AO X 3, no acute distress, some confusion/confabulation, but understands some of what is going on Resp: Crackles bilateral, no accessory muscles used CVS: S1,S2,RRR, edema GI: soft, non tender, non distended Vital Signs: Vital Signs: Last Vital Signs Temp 97.3 F 11/08/24 10:58 Pulse 99 11/08/24 10:58 Resp 20 11/08/24 10:58 BP 135/88 11/08/24 10:58 Pulse Ox 94 11/08/24 10:58 O2 Del Method Nasal Cannula 11/08/24 10:58 O2 Flow Rate 5 11/08/24 10:58 BMI result Body Mass Index 42.3 Objective Data Active Medications Acetaminophen (Acetaminophen 325 Mg Tablet) 975 mg PO Q6H PRN PRN Reason: Pain, Mild 1-3,fever,headache Last Admin: 11/08/24 00:00 Dose: 975 mg Documented By: DEEPA Albuterol/Ipratropium (Albuterol/Iprat 2.5/0.5mg 3 Ml Ampul.Neb) 3 ml INHALE RQ4H WHILE AWAKE PRN PRN Reason: Wheezing Apixaban (Apixaban 2.5 Mg Tablet) 2.5 mg PO BID [facility] Last Admin: 11/08/24 09:03 Dose: 2.5 mg Documented By: CJ Ascorbic Acid (Ascorbic Acid 500 Mg Tablet) 1,000 mg PO DAILY [facility]1983 On Hold: 11/07/24 17:52 Last Admin: 11/07/24 08:02 Dose: 1,000 mg Documented By: CJ Cyclobenzaprine HCl (Cyclobenzaprine Hcl 10 Mg Tablet) 10 mg PO TID [facility] Last Admin: 11/08/24 09:03 Dose: 10 mg Documented By: CJ Diphenoxylate HCl/Atropine (Diphenoxylate/Atrop 2.5/0.025 Tablet) 1 tab PO QID PRN PRN Reason: Diarrhea Doxazosin Mesylate (Doxazosin Mesylate 2 Mg Tablet) 4 mg PO BEDTIME [facility] Last Admin: 11/07/24 20:24 Dose: 4 mg Documented By: DEEPA Erythromycin (Erythromycin Base 0.5% Oph Oin 1 Gm Tube) 1 cm EYE-LEFT BID [facility], [facility] Last Admin: 11/08/24 09:03 Dose: 1 cm Documented By: CJ Furosemide (Furosemide 20 Mg/2 Ml Vial) 40 mg IVPUSH BID@0900,1800 [place]; Protocol Last Admin: 11/08/24 08:49 Dose: 40 mg Documented By: CJ Gabapentin (Gabapentin 300 Mg Capsule) 300 mg PO TID [facility] Last Admin: 11/08/24 09:01 Dose: 300 mg Documented By: CJ Guaifenesin (Guaifenesin 200 Mg/10 Ml 10 Ml Liquid) 10 ml PO Q4H PRN PRN Reason: Cough Last Admin: 11/08/24 09:03 Dose: 10 ml Documented By: CJ Guaifenesin/Dextromethorphan (Guaifenesin Dm 100/10/5 Ml 5 Ml Syrup) 5 ml PO Q6H PRN PRN Reason: Cough Last Admin: 11/06/24 15:37 Dose: 5 ml Documented By: CJ Hydromorphone HCl (Hydromorphone Hcl 2 Mg Tablet) 4 mg PO BID PRN PRN Reason: Pain (Scale Score 4-6) Last Admin: 11/08/24 09:02 Dose: 4 mg Documented By: CJ Hydromorphone HCl (Hydromorphone Hcl 2 Mg Tablet) 4 mg PO DAILY PRN PRN Reason: Pain (Scale Score 7-10) Last Admin: 11/06/24 05:42 Dose: 4 mg Documented By: SHARRI Levofloxacin (Levaquin) 750 mg in 150 mls @ 100 mls/hr IV Q24H [facility] Last Admin: 11/08/24 12:38 Dose: 100 mls/hr Documented By: CJ Lidocaine/Diphenhydr/Alum/Mg/Simeth (Mag&Al/Sim/Diphenhyd/Lidocaine 10 Ml Oral.Susp) 10 ml PO Q4H PRN PRN Reason: Mouth Sore Pain Last Admin: 11/08/24 08:59 Dose: 10 ml Documented By: CJ Methylprednisolone Sodium Succinate (Methylprednisolone Sod Succ 125 Mg/2 Ml Vial) 40 mg IVPUSH Q8H [place] Ondansetron HCl (Ondansetron Hcl 4 Mg/2 Ml Vial) 4 mg IVPUSH Q8H PRN PRN Reason: Nausea and Vomiting Polyethylene Glycol (Polyethylene Glycol 3350 17 Gm Powd.Pack) 17 gm PO DAILY PRN PRN Reason: Constipation Last Admin: 11/07/24 18:08 Dose: 17 gm Documented By: CJ Sertraline HCl (Sertraline Hcl 50 Mg Tablet) 50 mg PO DAILY [facility] Last Admin: 11/08/24 09:01 Dose: 50 mg Documented By: CJ Sodium Chloride (0.9 % Sodium Chloride Flush 3 Ml Syringe) 3 ml IVFLUSH QSHIFT [facility] Last Admin: 11/08/24 08:48 Dose: 3 ml Documented By: CJ Trimethoprim/Sulfamethoxazole (Sulfamethox/Trimeth 800/160 Tablet) 1 tab PO Q6H [facility] Last Admin: 11/08/24 12:37 Dose: 1 tab Documented By: CJ Venlafaxine HCl (Venlafaxine Hcl 25 Mg Tablet) 75 mg PO DAILY [facility] Last Admin: 11/08/24 09:01 Dose: 75 mg Documented By: CJ Vitamin D (Cholecalciferol (Vitamin D3) 25 Mcg Tablet) 50 mcg PO BID [facility] On Hold: 11/07/24 17:52 Last Admin: 11/07/24 08:02 Dose: 50 mcg Documented By: CJ Zolpidem Tartrate (Zolpidem Tartrate 5 Mg Tablet) 5 mg PO BEDTIME PRN PRN Reason: Sleep Last Admin: 11/08/24 00:01 Dose: 5 mg Documented By: DEMETRIA Labs 11/08/24 06:30 11/08/24 06:30 Labs: Laboratory Results - last 24 hr 11/07/24 11/07/24 11/08/24 14:55 15:45 06:30 MCV 92.9 MCH 32.0 MCHC 34.4 RDW 15.8 Plt Count 105 L MPV 10.4 Absolute Nucleated RBC 0.070 H Nucleated RBC % (auto) 0.7 H Anion Gap 15 Estim Creat Clear Calc 72.3 Estimated GFR POC Glucose Random Glucose Calcium B-Natriuretic Peptide Nasal Screen MRSA (PCR) NEGATIVE Nasal S. aureus Screen POSITIVE A Nasal MRSA/S.aureus Interp SEE NOTE Random Vancomycin 18.9 11/08/24 11/08/24 11/08/24 06:30 06:30 06:31 MCV MCH MCHC RDW Plt Count MPV Absolute Nucleated RBC Nucleated RBC % (auto) Anion Gap Estim Creat Clear Calc Cancelled Estimated GFR 51 Cancelled POC Glucose Random Glucose 356 H* Calcium 8.5 B-Natriuretic Peptide 154 H Nasal Screen MRSA (PCR) Nasal S. aureus Screen Nasal MRSA/S.aureus Interp Random Vancomycin 11/08/24 08:02 MCV MCH MCHC RDW Plt Count MPV Absolute Nucleated RBC Nucleated RBC % (auto) Anion Gap Estim Creat Clear Calc Estimated GFR POC Glucose 309 H Random Glucose Calcium B-Natriuretic Peptide Nasal Screen MRSA (PCR) Nasal S. aureus Screen Nasal MRSA/S.aureus Interp Random Vancomycin Assessment and Plan (1) Obesity: Status: Acute Plan 73M PMH stage IV colon cancer with mets to liver and lung on FOLFIRI presented with fever neutropenic sepsis and acute hypoxic respiratory failrue due to pneumonia in immunocompromised patient d/w pulm will change to levaquin, bactrim (cover pneumocystits empirically) high risk for bronch will hold off for now Stage IV colon cancer with liver and lung Mets Neutropenia improving Oncology following Acute toxic metabolic encephalopathy Improving Chronic left foot fractures Nonweightbearing left lower extremity Acute on chronic diastolic CHF Continue IV Lasix Morbid obesity DVT prophylaxis on apixaban (unclear indication) Full code reason for continued hospitalization:hypoxia Quality Stroke Does the patient have a stroke diagnosis?: No VTE Prior VTE?: No VTE Risk Level:: Medical - moderate - high VTE Device Contraindication: N/A - Device Ordered VTE Drug Contraindication: N/A - Med Ordered
--- NOTE | 2024-11-08 15:21 | HO.WOUND ---
Wound Consult: Follow up 73yr old?male admitted to [facility] on 11/03/24 - See progress notes and H&P for detailed history.? Wound consult follow up for Coccyx wound POA.? Patient agreeable to assessment and photo documentation. 11/04/24 11/08/24 Coccyx Etiology: ??Stage 3 Pressure Injury Present on Admission Measurements: 2cm x 0.5cm x 0.3cm Wound Bed: Overall improving wound bed and dimensions improved - red pink wound bed Edges: ? epibole and macerated Shawna wound: scar tissue noted along with MASD and Right buttock with small open wound clean pink wound bed Pain: patient reports pain and tenderness with cleansing Goals of Treatment: ? Off load pressure and triad to allow for moist wound healing. Recommendations: 1. Turn and Reposition every 2 hours and as needed for patient comfort.? Use pillows or wedges to support off loading positions. 2. Off Load all bony prominences with use of pillows and heel boots if needed.? Apply Preventative foams where needed. ? 3. Monitor for incontinence and moisture control, use barrier creams when needed for prevention and treatment. 4. Provide adequate and supplemental nutrition.? 5. Continue low air loss mattress. 6. When applicable maintain blood glucose levels per Providers order. Coccyx - Off Load Pressure with Q2 hr turns and use of pillows - Cleanse with PH balance spray or wipes, pat dry. ?Apply thin layer of Triad to wound bed - only pat and dab no scrub and rub when soiling occurs. Reapply thin layer PRN after each episode of incontinence. Do not use foam as this is trapping moisture with in the gluteal fold. Re-consult wound care Nurse for wound deterioration or wound changes.
--- NOTE | 2024-11-08 15:51 | MHC.CM.PN ---
EMR reviewed and per MD rounds, pt is not medically cleared for discharge due to management of neutropenic sepsis/acute hypoxic respiratory failure due to PNA.
[2024-11-08 20:42] LABS: Glucose, Whole Blood 374 mg/dL (60-115)
[2024-11-09 00:41] LABS: Glucose, Whole Blood 397 mg/dL (60-115)
[2024-11-09] MEDS: Sulfamethox/Trimeth 800/160 TABLET 1 TAB PO ×5 (00:56→23:26)
[2024-11-09] MEDS: 0.9 % Sodium Chloride Flush 3 ML SYRINGE IVFLUSH ×2 (00:56→20:33)
[2024-11-09 03:16] VITALS: BP 143/88; PULSE 90; RESP 18; TEMP 36.3; O2SAT 97
[2024-11-09 06:00] VITALS: BMI 41.9
[2024-11-09 07:17] VITALS: BP 140/78; PULSE 96; RESP 18; TEMP 36.6; O2SAT 99
[2024-11-09 07:35] LABS: Hematocrit 26.9 % (42.0-52.0); Hemoglobin 9.0 g/dl (14.0-18.0); Mean Corpuscular HGB Conc 33.5 g/dl (31.0-36.0); Mean Corpuscular Hemoglobin 31.6 pg (27.0-33.0); Mean Corpuscular Volume 94.4 fL (80.0-98.0); NRBC Abs Auto 0.070 X10*3/uL (0.0-0.012); NRBC Pct Auto 0.7 /100WBC (0.0-0.2); Platelet Count 107 X10*3/uL (160-400); Red Blood Count 2.85 X10*6/uL (4.60-5.80); White Blood Count 10.4 X10*3/uL (4.8-10.8)
[2024-11-09 07:52] LABS: Anion Gap 13 (12-20); Blood Urea Nitrogen 25 mg/dL (9-16); Calcium 8.2 mg/dL (8.4-10.2); Carbon Dioxide 26 mmol/L (22-29); Chloride 100 mmol/L (96-108); Creatinine Clr Calc Pharmacy 68.5; Estimated Glomerular Filt Rate 48; Magnesium 1.7 mg/dL (1.6-2.6); Potassium 3.3 mmol/L (3.3-5.1); Sodium 136 mmol/L (135-145)
[2024-11-09] MEDS: Furosemide 20 MG/2 ML VIAL 40 MG IVPUSH ×2 (08:21→17:26)
[2024-11-09] MEDS: Erythromycin Base 0.5% Oph Oin 1 GM TUBE 1 CM EYE-LEFT ×2 (08:22→22:11)
[2024-11-09 08:48] LABS: Hemoglobin A1C 122.6988 umol/L; Total Hemoglobin (HGBA1C) 2411.3682 umol/L
--- NOTE | 2024-11-09 09:23 | P.PNPL_ITS ---
Subjective Subjective Date of Service: 11/09/24 Principal diagnosis: Hypoxemic respiratory failure, sepsis Interval history: The patient was seen on exam. Feeling a little better. He is expectorating more. He is using the incentive spirometer. Will get him an Acapella valve for an Aerobika valve in order to help him expectorate further. He needs to provide a sputum sample to sent for the lab for further analysis. Oxygen requirements are still high. Objective Data Labs 11/09/24 06:59 11/09/24 06:59 Labs: Laboratory Results - last 24 hr 11/08/24 11/09/24 11/09/24 20:17 00:37 06:59 WBC 10.4 RBC 2.85 L Hgb 9.0 L Hct 26.9 L MCV 94.4 MCH 31.6 MCHC 33.5 RDW 15.7 Plt Count 107 L MPV 11.9 Absolute Nucleated RBC 0.070 H Nucleated RBC % (auto) 0.7 H Sodium 136 Potassium 3.3 Chloride 100 Carbon Dioxide 26 Anion Gap 13 BUN 25 H Creatinine 1.43 H Estim Creat Clear Calc 68.5 Estimated GFR 48 POC Glucose 374 H* 397 H* Random Glucose 337 H Estimat Average Glucose 148 Hemoglobin A1c % 6.8 H Calcium 8.2 L Magnesium 1.7 Microbiology Microbiology Results: Microbiology 11/03/24 11:30 Blood - Venous Blood Culture - Final No growth after 5 days. 11/03/24 11:26 Blood - Venous Blood Culture - Final No growth after 5 days. Review of Systems Review of Systems Const : no body aches, no chills, no excessive sweating and no fatigue Eyes: no blurry vision and no change in vision ENT: no bleeding gums and no change in voice, no dizziness Card: no chest pain, no shortness of breath, no orthopnea, no PND Resp: + cough, + SOB GI: no abdominal pain and no nausea, no vomiting : no hematuria, no urinary frequency and no difficulty voiding Musc: no abnormal gait, no bone pain Neuro: no abnormal movements, no weakness, no dizziness Psych: +mental status changes Endo: no change in body appearance Physical Exam 2 Vital Signs: Vital Signs: Last Vital Signs Temp 97.8 F 11/09/24 07:17 Pulse 96 11/09/24 07:17 Resp 18 11/09/24 07:17 BP 140/78 H 11/09/24 07:17 Pulse Ox 99 11/09/24 07:17 O2 Del Method Nasal Cannula 11/09/24 07:17 O2 Flow Rate 8 11/09/24 07:17 BMI result Body Mass Index 41.9 General: Elderly male in mild acute distress, chronically ill appearing and tired appearing Nutritional Appearance: well nourished and overweight Eyes: appearance normal, both eyes and all related structures; Alignment and Position: alignment normal and position normal Neck: No lymphadenopathy, no thyromegaly Resp: bilateral air entry equal, bilateral crackles heard Cardio: Regular rate, regular rhythm; Heart sounds: S1 normal heart sound present and S2 normal heart sound present GI: soft, nontender, no guarding, no hepatosplenomegaly : bladder normal to inspection, bladder normal to palpation, no renal angle tenderness Skin: no rashes or lesions noted and elasticity normal Neuro: oriented to person, oriented to place, oriented to time and moves all extremities Procedures Date of Service Date of Service: 11/09/24 Assessment and Plan Assessment and plan (1) Pneumonitis: Status: Acute (2) Acute hypoxemic respiratory failure: Status: Acute (3) Pneumonia: Status: Acute Plan Continue oxygen supplementation. If worsens may need high-flow Diuresis as tolerated ok todecrease Solu-Medrol due hi sugars Levaquin and Bactrim to treat for Legionella in addition to treat for PCP, atypical organisms staph aureus Holding off on bronchoscopy. Initially scheduled for tomorrow but with the worsening condition it is likely that he may not tolerate the anesthesia or the intervention. Will be for diagnostic purposes in the likely the laboratory data will not be available quickly enough to really make a significant difference. Therefore will just treat him empirically at this time. Will reassess tomorrow . cxr tomorrow star cpt with kamini continue ISS Time Spent With Patient Time: Total time managing care of this patient today ____ minutes. Progress Note: Quality Stroke Does the patient have a stroke diagnosis?: No
--- NOTE | 2024-11-09 10:29 | PM.PNCARD ---
Subjective Subjective Date of Service: 11/09/24 Principal diagnosis: Hypoxemic respiratory failure, sepsis Interval history: Patient oxygen requirement as reduced. Has had good negative balance. Creatinine has bumped up slightly. Still diuresing well. Says he is less short of breath with less chest heaviness/tightness. Review of Systems Constitutional: Denies chills, Denies fever(s) and Denies lethargy Eyes: Reports no additional eye complaints Cardiovascular: Denies chest pain, Denies lightheadedness, Denies palpitations and Reports dyspnea (Improving) Respiratory: Reports dyspnea (Improving) Endocrine: Denies palpitations Physical Exam Vital Signs: Last Vital Signs Temp 97.8 F 11/09/24 07:17 Pulse 96 11/09/24 07:17 Resp 18 11/09/24 07:17 BP 140/78 H 11/09/24 07:17 Pulse Ox 99 11/09/24 07:17 O2 Del Method Nasal Cannula 11/09/24 07:17 O2 Flow Rate 8 11/09/24 07:17 BMI result Body Mass Index 41.9 Const General: cooperative, alert, awake and in distress mild and respiratory Nutritional Appearance: obese morbidly obese Neck Neck: Yes trachea midline, Yes supple and Yes other (Difficult to evaluate JVD) Resp Effort & Inspection: decreased respiratory effort Auscultation: diminished lung sounds Cardio Rate: regular rate Rhythm: regular rhythm Heart sounds: S1 normal heart sound present, S2 normal heart sound present, no click, no gallops and no murmurs GI Auscultation: normal bowel sounds Extrem General: No clubbing, No cyanosis and Yes edema Objective Labs and Meds 11/09/24 06:59 11/09/24 06:59 Lab results: Laboratory Results - last 24 hr 11/08/24 11/09/24 11/09/24 20:17 00:37 06:59 WBC 10.4 RBC 2.85 L Hgb 9.0 L Hct 26.9 L MCV 94.4 MCH 31.6 MCHC 33.5 RDW 15.7 Plt Count 107 L MPV 11.9 Absolute Nucleated RBC 0.070 H Nucleated RBC % (auto) 0.7 H Sodium 136 Potassium 3.3 Chloride 100 Carbon Dioxide 26 Anion Gap 13 BUN 25 H Creatinine 1.43 H Estim Creat Clear Calc 68.5 Estimated GFR 48 POC Glucose 374 H* 397 H* Random Glucose 337 H Estimat Average Glucose 148 Hemoglobin A1c % 6.8 H Calcium 8.2 L Magnesium 1.7 Progress Note: A&P Assessment and plan (1) Acute hypoxemic respiratory failure: Status: Acute Assessment and Plan: Acute hypoxemic respiratory failure in this elderly gentleman multifactorial with component of fluid overload and congestive heart failure. Has been diuresing well. Creatinine is bumping up slightly. Very difficult to assess fluid status given his body habitus as well as participation. Would diuresis for 1 more day. Monitor BNP and BMP tomorrow. Consider adding Farxiga 5 mg to regimen for heart failure management. Continue supportive care. Continue oxygen. Continue management of COPD as well as management for atelectasis. Out of bed to chair today. Overall prognosis is guarded Time Spent With Patient Time: Total time managing care of this patient today ____ minutes. Progress Note: Quality Stroke Does the patient have a stroke diagnosis?: No Procedures Date of Service Date of Service: 11/09/24
--- NOTE | 2024-11-09 10:46 | P.PNIM_ITS ---
Subjective Subjective Date of Service: 11/09/24 Interval History: feeling better today Physical Exam 2 Vital Signs: Vital Signs: Last Vital Signs Temp 97.8 F 11/09/24 07:17 Pulse 96 11/09/24 07:17 Resp 18 11/09/24 07:17 BP 140/78 H 11/09/24 07:17 Pulse Ox 99 11/09/24 07:17 O2 Del Method Nasal Cannula 11/09/24 07:17 O2 Flow Rate 8 11/09/24 07:17 BMI result Body Mass Index 41.9 Const: General: cooperative, alert, awake and in distress mild and respiratory Nutritional Appearance: obese morbidly obese Neck: Neck: Yes trachea midline, Yes supple and Yes other (Difficult to evaluate JVD) Resp: Effort & Inspection: decreased respiratory effort Auscultation: d iminished lung sounds Cardio: Rate: regular rate Rhythm: regular rhythm Heart sounds: S1 normal heart sound present, S2 normal heart sound present, no click, no gallops and no murmurs GI: Auscultation: normal bowel sounds Extrem: General: No clubbing, No cyanosis and Yes edema Objective Data Active Medications Acetaminophen (Acetaminophen 325 Mg Tablet) 975 mg PO Q6H PRN PRN Reason: Pain, Mild 1-3,fever,headache Last Admin: 11/08/24 00:00 Dose: 975 mg Documented By: DEEPA Albuterol/Ipratropium (Albuterol/Iprat 2.5/0.5mg 3 Ml Ampul.Neb) 3 ml INHALE RQ4H WHILE AWAKE PRN PRN Reason: Wheezing Apixaban (Apixaban 2.5 Mg Tablet) 2.5 mg PO BID [facility] Last Admin: 11/09/24 08:22 Dose: 2.5 mg Documented By: ARGELIA Ascorbic Acid (Ascorbic Acid 500 Mg Tablet) 1,000 mg PO DAILY [facility] On Hold: 11/07/24 17:52 Last Admin: 11/07/24 08:02 Dose: 1,000 mg Documented By: CJ Cyclobenzaprine HCl (Cyclobenzaprine Hcl 10 Mg Tablet) 10 mg PO TID [facility] Last Admin: 11/09/24 08:22 Dose: 10 mg Documented By: ARGELIA Dextrose (Dextrose 50 % 25 Gm/50 Ml Syringe) 25 gm IVPUSH Q15M PRN; Protocol PRN Reason: per Hypoglycemia Standing Ord. Doxazosin Mesylate (Doxazosin Mesylate 2 Mg Tablet) 4 mg PO BEDTIME [facility] Last Admin: 11/08/24 20:19 Dose: 4 mg Documented By: SOLOMON Erythromycin (Erythromycin Base 0.5% Oph Oin 1 Gm Tube) 1 cm EYE-LEFT BID [facility] Last Admin: 11/09/24 08:22 Dose: 1 cm Documented By: ARGELIA Furosemide (Furosemide 20 Mg/2 Ml Vial) 40 mg IVPUSH BID@0900,1800 [facility]; Protocol Last Admin: 11/09/24 08:21 Dose: 40 mg Documented By: ARGELIA Gabapentin (Gabapentin 300 Mg Capsule) 300 mg PO TID [facility] Last Admin: 11/09/24 08:22 Dose: 300 mg Documented By: ARGELIA Glucose (Glucose Gel 15 Gm Gel..Gram.) 15 gm PO Q15M PRN; Protocol PRN Reason: per Hypoglycemia Standing Ord. Guaifenesin (Guaifenesin 200 Mg/10 Ml 10 Ml Liquid) 10 ml PO Q4H PRN PRN Reason: Cough Last Admin: 11/08/24 17:08 Dose: 10 ml Documented By: CJ Guaifenesin/Dextromethorphan (Guaifenesin Dm 100/10/5 Ml 5 Ml Syrup) 5 ml PO Q6H PRN PRN Reason: Cough Last Admin: 11/06/24 15:37 Dose: 5 ml Documented By: CJ Hydromorphone HCl (Hydromorphone Hcl 2 Mg Tablet) 4 mg PO Q6H PRN PRN Reason: Pain, Severe (Pain Scale 7-10) Last Admin: 11/09/24 05:57 Dose: 4 mg Documented By: SOLOMON Levofloxacin (Levaquin) 750 mg in 150 mls @ 100 mls/hr IV Q24H [facility] Last Infusion: 11/08/24 14:08 Dose: Infused Documented By: CJ Insulin Human Lispro (Insulin Lispro 100 Unit/Ml 3 Ml Vial) 0 unit SUBCUT QIDACHS [facility]; Protocol Lidocaine/Diphenhydr/Alum/Mg/Simeth (Mag&Al/Sim/Diphenhyd/Lidocaine 10 Ml Oral.Susp) 10 ml PO Q4H PRN PRN Reason: Mouth Sore Pain Last Admin: 11/08/24 08:59 Dose: 10 ml Documented By: CJ Methylprednisolone Sodium Succinate (Methylprednisolone Sod Succ 125 Mg/2 Ml Vial) 40 mg IVPUSH Q12H [facility] Last Admin: 11/09/24 10:42 Dose: Not Given Documented By: ARGELIA Non-Admin Reason: Previously Administered Ondansetron HCl (Ondansetron Hcl 4 Mg/2 Ml Vial) 4 mg IVPUSH Q8H PRN PRN Reason: Nausea and Vomiting Polyethylene Glycol (Polyethylene Glycol 3350 17 Gm Powd.Pack) 17 gm PO DAILY PRN PRN Reason: Constipation Last Admin: 11/08/24 17:07 Dose: 17 gm Documented By: CJ Sertraline HCl (Sertraline Hcl 50 Mg Tablet) 50 mg PO DAILY [facility] Last Admin: 11/09/24 08:22 Dose: 50 mg Documented By: ARGELIA Sodium Chloride (0.9 % Sodium Chloride Flush 3 Ml Syringe) 3 ml IVFLUSH QSHIFT [facility] Last Admin: 11/09/24 07:25 Dose: Not Given Documented By: ARGELIA Non-Admin Reason: Previously Administered Trimethoprim/Sulfamethoxazole (Sulfamethox/Trimeth 800/160 Tablet) 1 tab PO Q6H [facility] Last Admin: 11/09/24 05:49 Dose: 1 tab Documented By: SOLOMON Venlafaxine HCl (Venlafaxine Hcl 25 Mg Tablet) 75 mg PO DAILY [facility] Last Admin: 11/09/24 08:21 Dose: 75 mg Documented By: ARGELIA Vitamin D (Cholecalciferol (Vitamin D3) 25 Mcg Tablet) 50 mcg PO BID [facility] On Hold: 11/07/24 17:52 Last Admin: 11/07/24 08:02 Dose: 50 mcg Documented By: CJ Zolpidem Tartrate (Zolpidem Tartrate 5 Mg Tablet) 5 mg PO BEDTIME PRN PRN Reason: Sleep Last Admin: 11/08/24 00:01 Dose: 5 mg Documented By: DEEPA Labs 11/09/24 06:59 11/09/24 06:59 Labs: Laboratory Results - last 24 hr 11/08/24 11/09/24 11/09/24 20:17 00:37 06:59 MCV 94.4 MCH 31.6 MCHC 33.5 RDW 15.7 Plt Count 107 L MPV 11.9 Absolute Nucleated RBC 0.070 H Nucleated RBC % (auto) 0.7 H Anion Gap 13 Estim Creat Clear Calc 68.5 Estimated GFR 48 POC Glucose 374 H* 397 H* Random Glucose 337 H Estimat Average Glucose 148 Hemoglobin A1c % 6.8 H Calcium 8.2 L Magnesium 1.7 Microbiology Microbiology Results: Microbiology 11/03/24 11:30 Blood Culture - Final Blood - Venous No growth after 5 days. 11/03/24 11:26 Blood Culture - Final Blood - Venous No growth after 5 days. Assessment and Plan (1) Obesity: Status: Acute Plan 73M PMH stage IV colon cancer with mets to liver and lung on FOLFIRI presented with fever neutropenic sepsis and acute hypoxic respiratory failrue due to pneumonia in immunocompromised patient continue levaquin, bactrim (cover pneumocystits empirically) follow up legionella Stage IV colon cancer with liver and lung Mets Neutropenia improving Oncology following Acute toxic metabolic encephalopathy Improving Chronic left foot fractures Nonweightbearing left lower extremity Acute on chronic diastolic CHF Continue IV Lasix Morbid obesity DVT prophylaxis on apixaban (unclear indication) Full code reason for continued hospitalization:hypoxia Quality Stroke Does the patient have a stroke diagnosis?: No VTE Prior VTE?: No VTE Risk Level:: Medical - moderate - high VTE Device Contraindication: N/A - Device Ordered VTE Drug Contraindication: N/A - Med Ordered
[2024-11-09 11:14] VITALS: BP 135/71; PULSE 93; RESP 20; TEMP 37.2; O2SAT 95
[2024-11-09 11:52] LABS: Glucose, Whole Blood 273 mg/dL (60-115)
[2024-11-09 15:36] VITALS: BP 139/82; PULSE 109; RESP 18; TEMP 36.6; O2SAT 98
[2024-11-09 15:46] LABS: Glucose, Whole Blood 344 mg/dL (60-115)
[2024-11-09] MEDS: Mag&Al/Sim/Diphenhyd/Lidocaine 10 ML ORAL.SUSP PO (17:26)
[2024-11-09] MEDS: guaiFENesin 200 MG/10 ML 10 ML LIQUID PO (17:32)
[2024-11-09 20:00] VITALS: BP 126/69; PULSE 107; RESP 16; TEMP 36.5; O2SAT 93
[2024-11-09 22:00] LABS: Glucose, Whole Blood 267 mg/dL (60-115)
[2024-11-09 23:48] VITALS: BP 140/72; PULSE 99; RESP 18; TEMP 36.6; O2SAT 93
[2024-11-10] VITALS (12 sets, daily range): BP systolic 114–173; BP diastolic 70–86; PULSE 81–107; RESP 16–18; TEMP 36.2–37.1; O2SAT 84–96; BMI 42.1
[2024-11-10] MEDS: Sulfamethox/Trimeth 800/160 TABLET 1 TAB PO ×3 (05:41→17:18)
[2024-11-10 06:42] LABS: Hematocrit 28.8 % (42.0-52.0); Hemoglobin 9.6 g/dl (14.0-18.0); Mean Corpuscular HGB Conc 33.3 g/dl (31.0-36.0); Mean Corpuscular Hemoglobin 31.3 pg (27.0-33.0); Mean Corpuscular Volume 93.8 fL (80.0-98.0); NRBC Abs Auto 0.030 X10*3/uL (0.0-0.012); NRBC Pct Auto 0.3 /100WBC (0.0-0.2); Platelet Count 121 X10*3/uL (160-400); Red Blood Count 3.07 X10*6/uL (4.60-5.80); White Blood Count 11.4 X10*3/uL (4.8-10.8)
[2024-11-10 07:07] LABS: Blood Urea Nitrogen 33 mg/dL (9-16); Calcium 8.9 mg/dL (8.4-10.2); Creatinine Clr Calc Pharmacy 63.3; Estimated Glomerular Filt Rate 44
[2024-11-10 07:18] LABS: Anion Gap 15 (12-20); Carbon Dioxide 33 mmol/L (22-29); Chloride 95 mmol/L (96-108); Potassium 4.1 mmol/L (3.3-5.1); Sodium 139 mmol/L (135-145)
[2024-11-10 07:22] LABS: Glucose, Whole Blood 259 mg/dL (60-115)
[2024-11-10] MEDS: Erythromycin Base 0.5% Oph Oin 1 GM TUBE 1 CM EYE-LEFT ×2 (08:47→21:56)
[2024-11-10] MEDS: Furosemide 20 MG/2 ML VIAL 40 MG IVPUSH (08:48)
--- NOTE | 2024-11-10 09:00 | HO.SKINPHOTO ---
Location: Gluteal Fold Category: Stage 3 Pressure Injury POA Triad treatment to be applied directly to wound bed. No foam to be used. Q2hr turns and off loading.
--- NOTE | 2024-11-10 10:18 | P.PNIM_ITS ---
Subjective Subjective Date of Service: 11/10/24 Interval History: feeling better today Physical Exam 2 Vital Signs: Vital Signs: Last Vital Signs Temp 97.2 F 11/10/24 07:15 Pulse 81 11/10/24 07:15 Resp 18 11/10/24 07:15 BP 166/77 H 11/10/24 07:15 Pulse Ox 96 11/10/24 07:15 O2 Del Method Nasal Cannula 11/10/24 07:15 O2 Flow Rate 7 11/10/24 07:15 BMI result Body Mass Index 42.1 Const: General: cooperative, alert, awake and in distress mild and respiratory Nutritional Appearance: obese morbidly obese Neck: Neck: Yes trachea midline, Yes supple and Yes other (Difficult to evaluate JVD) Resp: Effort & Inspection: decreased respiratory effort Auscultation: d iminished lung sounds Cardio: Rate: regular rate Rhythm: regular rhythm Heart sounds: S1 normal heart sound present, S2 normal heart sound present, no click, no gallops and no murmurs GI: Auscultation: normal bowel sounds Extrem: General: No clubbing, No cyanosis and Yes edema Objective Data Active Medications Acetaminophen (Acetaminophen 325 Mg Tablet) 975 mg PO Q6H PRN PRN Reason: Pain, Mild 1-3,fever,headache Last Admin: 11/08/24 00:00 Dose: 975 mg Documented By: DEEPA Albuterol/Ipratropium (Albuterol/Iprat 2.5/0.5mg 3 Ml Ampul.Neb) 3 ml INHALE RQ4H WHILE AWAKE PRN PRN Reason: Wheezing Apixaban (Apixaban 2.5 Mg Tablet) 2.5 mg PO BID [facility] Last Admin: 11/10/24 08:47 Dose: 2.5 mg Documented By: ARGELIA Ascorbic Acid (Ascorbic Acid 500 Mg Tablet) 1,000 mg PO DAILY [facility] On Hold: 11/07/24 17:52 Last Admin: 11/07/24 08:02 Dose: 1,000 mg Documented By: CJ Cyclobenzaprine HCl (Cyclobenzaprine Hcl 10 Mg Tablet) 10 mg PO TID [facility] Last Admin: 11/10/24 08:47 Dose: 10 mg Documented By: ARGELIA Dextrose (Dextrose 50 % 25 Gm/50 Ml Syringe) 25 gm IVPUSH Q15M PRN; Protocol PRN Reason: per Hypoglycemia Standing Ord. Doxazosin Mesylate (Doxazosin Mesylate 2 Mg Tablet) 4 mg PO BEDTIME [facility] Last Admin: 11/09/24 20:31 Dose: 4 mg Documented By: SOLOMON Erythromycin (Erythromycin Base 0.5% Oph Oin 1 Gm Tube) 1 cm EYE-LEFT BID [facility] Last Admin: 11/10/24 08:47 Dose: 1 cm Documented By: ARGELIA Furosemide (Furosemide 20 Mg/2 Ml Vial) 40 mg IVPUSH BID@0900,1800 [facility]; Protocol Last Admin: 11/10/24 08:48 Dose: 40 mg Documented By: ARGELIA Gabapentin (Gabapentin 300 Mg Capsule) 300 mg PO TID [facility] Last Admin: 11/10/24 08:47 Dose: 300 mg Documented By: ARGELIA Glucose (Glucose Gel 15 Gm Gel..Gram.) 15 gm PO Q15M PRN; Protocol PRN Reason: per Hypoglycemia Standing Ord. Guaifenesin (Guaifenesin 200 Mg/10 Ml 10 Ml Liquid) 10 ml PO Q4H PRN PRN Reason: Cough Last Admin: 11/09/24 17:32 Dose: 10 ml Documented By: ARGELIA Guaifenesin/Dextromethorphan (Guaifenesin Dm 100/10/5 Ml 5 Ml Syrup) 5 ml PO Q6H PRN PRN Reason: Cough Last Admin: 11/06/24 15:37 Dose: 5 ml Documented By: CJ Hydromorphone HCl (Hydromorphone Hcl 2 Mg Tablet) 4 mg PO Q6H PRN PRN Reason: Pain, Severe (Pain Scale 7-10) Last Admin: 11/09/24 23:26 Dose: 4 mg Documented By: SOLOMON Levofloxacin (Levaquin) 750 mg in 150 mls @ 100 mls/hr IV Q24H [facility] Last Infusion: 11/09/24 13:37 Dose: Infused Documented By: ARGELIA Insulin Human Lispro (Insulin Lispro 100 Unit/Ml 3 Ml Vial) 0 unit SUBCUT QIDACHS [facility]; Protocol Last Admin: 11/10/24 08:48 Dose: 6 unit Documented By: ARGELIA Lidocaine/Diphenhydr/Alum/Mg/Simeth (Mag&Al/Sim/Diphenhyd/Lidocaine 10 Ml Oral.Susp) 10 ml PO Q4H PRN PRN Reason: Mouth Sore Pain Last Admin: 11/09/24 17:26 Dose: 10 ml Documented By: ARGELIA Methylprednisolone Sodium Succinate (Methylprednisolone Sod Succ 125 Mg/2 Ml Vial) 40 mg IVPUSH Q12H [facility] Last Admin: 11/10/24 08:48 Dose: 40 mg Documented By: ARGELIA Ondansetron HCl (Ondansetron Hcl 4 Mg/2 Ml Vial) 4 mg IVPUSH Q8H PRN PRN Reason: Nausea and Vomiting Polyethylene Glycol (Polyethylene Glycol 3350 17 Gm Powd.Pack) 17 gm PO DAILY PRN PRN Reason: Constipation Last Admin: 11/08/24 17:07 Dose: 17 gm Documented By: CJ Sertraline HCl (Sertraline Hcl 50 Mg Tablet) 50 mg PO DAILY [facility] Last Admin: 11/10/24 08:47 Dose: 50 mg Documented By: ARGELIA Sodium Chloride (0.9 % Sodium Chloride Flush 3 Ml Syringe) 3 ml IVFLUSH QSHIFT [facility] Last Admin: 11/10/24 07:10 Dose: Not Given Documented By: ARGELIA Non-Admin Reason: Previously Administered Trimethoprim/Sulfamethoxazole (Sulfamethox/Trimeth 800/160 Tablet) 1 tab PO Q6H [facility] Last Admin: 11/10/24 05:41 Dose: 1 tab Documented By: SOLOMON Venlafaxine HCl (Venlafaxine Hcl 25 Mg Tablet) 75 mg PO DAILY [facility] Last Admin: 11/10/24 08:47 Dose: 75 mg Documented By: ARGELIA Vitamin D (Cholecalciferol (Vitamin D3) 25 Mcg Tablet) 50 mcg PO BID [facility] On Hold: 11/07/24 17:52 Last Admin: 11/07/24 08:02 Dose: 50 mcg Documented By: CJ Zolpidem Tartrate (Zolpidem Tartrate 5 Mg Tablet) 5 mg PO BEDTIME PRN PRN Reason: Sleep Last Admin: 11/08/24 00:01 Dose: 5 mg Documented By: DEEPA Labs 11/10/24 06:33 11/10/24 06:33 Labs: Laboratory Results - last 24 hr 09/11/25 09/11/25 09/11/25 11:34 15:43 21:56 MCV MCH MCHC RDW Plt Count MPV Absolute Nucleated RBC Nucleated RBC % (auto) Anion Gap Estim Creat Clear Calc Estimated GFR POC Glucose 273 H 344 H 267 H Random Glucose Calcium 11/10/24 11/10/24 06:33 07:14 MCV 93.8 MCH 31.3 MCHC 33.3 RDW 16.2 H Plt Count 121 L MPV 11.5 Absolute Nucleated RBC 0.030 H Nucleated RBC % (auto) 0.3 H Anion Gap 15 Estim Creat Clear Calc 63.3 Estimated GFR 44 POC Glucose 259 H Random Glucose 298 H Calcium 8.9 D Microbiology Microbiology Results: Microbiology 11/09/24 17:35 Gram Stain - Final Sputum - Expectorated Sputum Culture - Preliminary Culture in progress. Assessment and Plan (1) Obesity: Status: Acute Plan 73M PMH stage IV colon cancer with mets to liver and lung on FOLFIRI presented with fever neutropenic sepsis and acute hypoxic respiratory failrue due to pneumonia in immunocompromised patient continue levaquin, bactrim (cover pneumocystits empirically) follow up legionella, wean o2 Stage IV colon cancer with liver and lung Mets Neutropenia improving Oncology following Acute toxic metabolic encephalopathy Improving Chronic left foot fractures Nonweightbearing left lower extremity Acute on chronic diastolic CHF Continue IV Lasix Morbid obesity DVT prophylaxis on apixaban (unclear indication) Full code reason for continued hospitalization:hypoxia Quality Stroke Does the patient have a stroke diagnosis?: No VTE Prior VTE?: No VTE Risk Level:: Medical - moderate - high VTE Device Contraindication: N/A - Device Ordered VTE Drug Contraindication: N/A - Med Ordered
[2024-11-10 11:20] LABS: Glucose, Whole Blood 228 mg/dL (60-115)
--- NOTE | 2024-11-10 13:11 | MHC.CLN ---
F/U PT WITH INCREASED NUTRITION RISK R/T PRESSURE INJURY PO INTAKE 100% REGULAR DIET RECEIVING ENSURE TID TO PROMOTE WOUND HEALING SUPP PROVIDES 1050KCALS, 60G PROTEIN CONTINUE TO MONITOR PO INTAKE AND ENCOURAGE SUPPLEMENTS
--- NOTE | 2024-11-10 14:29 | MHC.CM.PN ---
CM met with pt. and spoke to his at pt.,s suggestion re: DCP to STR. said pt. has been to [facility] in the past and he did not get enough PT, referrals expanded, now looking at [facility].
[2024-11-10 16:14] LABS: Glucose, Whole Blood 230 mg/dL (60-115)
--- NOTE | 2024-11-10 17:22 | HO.WOUND ---
Wound Consult: Follow up 73yr old?male admitted to [facility] [place]03[place]24 - See progress notes and H&P for detailed history.? Wound consult placed for Skin folds and follow up for Coccyx wound POA.? Patient agreeable to assessment and photo documentation. 11/04/24 11/08/24 11/10/24 Coccyx Etiology: ??Stage 3 Pressure Injury Present on Admission Measurements: 2cm x 0.5cm x 0.3cm Wound Bed: Overall improving wound bed and dimensions improved - red pink wound bed Edges: ? epibole and macerated Shawna wound: scar tissue noted along with MASD and Right buttock with small open wound clean pink wound bed Pain: patient reports pain and tenderness with cleansing Goals of Treatment: ? Off load pressure and triad to allow for moist wound healing. Skin folds assessed - no photo available - left abdomen skin fold with intertrigo noted - partial thickness tissue loss at base of fold - MASD noted - Treated with Triad and Interdry recommend continue with interdry and Triad use. Discussed at length with daughter, patient and . Recommendations: 1. Turn and Reposition every 2 hours and as needed for patient comfort.? Use pillows or wedges to support off loading positions. 2. Off Load all bony prominences with use of pillows and heel boots if needed.? Apply Preventative foams where needed. ? 3. Monitor for incontinence and moisture control, use barrier creams when needed for prevention and treatment. 4. Provide adequate and supplemental nutrition.? 5. Continue low air loss mattress. 6. When applicable maintain blood glucose levels per Providers order. Coccyx - Off Load Pressure with Q2 hr turns and use of pillows - Cleanse with PH balance spray or wipes, pat dry. ?Apply thin layer of Triad to wound bed - only pat and dab no scrub and rub when soiling occurs. Reapply thin layer PRN after each episode of incontinence. Do not use foam as this is trapping moisture with in the gluteal fold. Skin Folds - Routine cleaning. Apply Triad daily followed by Interdry. Tuck Interdry AG Sheet into skin fold to wick and translocate moisture away from skin fold.? Be sure to leave at least 2 inch of fabric exposed outside of skin fold.? Change after 5 days or when soiled. Re-consult wound care Nurse for wound deterioration or wound changes.
[2024-11-10 21:08] LABS: Glucose, Whole Blood 232 mg/dL (60-115)
[2024-11-11] VITALS (7 sets, daily range): BP systolic 131–146; BP diastolic 60–90; PULSE 91–105; RESP 16–20; TEMP 36.2–36.9; O2SAT 93–96; BMI 41.9
[2024-11-11] MEDS: 0.9 % Sodium Chloride Flush 3 ML SYRINGE IVFLUSH ×3 (01:09→16:46)
[2024-11-11] MEDS: Sulfamethox/Trimeth 800/160 TABLET 1 TAB PO ×5 (01:09→23:47)
[2024-11-11 07:21] LABS: Glucose, Whole Blood 237 mg/dL (60-115)
[2024-11-11 08:17] LABS: Hematocrit 25.1 % (42.0-52.0); Hemoglobin 8.4 g/dl (14.0-18.0); Mean Corpuscular HGB Conc 33.5 g/dl (31.0-36.0); Mean Corpuscular Hemoglobin 31.7 pg (27.0-33.0); Mean Corpuscular Volume 94.7 fL (80.0-98.0); NRBC Abs Auto 0.040 X10*3/uL (0.0-0.012); NRBC Pct Auto 0.5 /100WBC (0.0-0.2); Platelet Count 114 X10*3/uL (160-400); Red Blood Count 2.65 X10*6/uL (4.60-5.80); White Blood Count 8.9 X10*3/uL (4.8-10.8)
[2024-11-11 08:29] LABS: Anion Gap 13 (12-20); Blood Urea Nitrogen 37 mg/dL (9-16); Calcium 8.3 mg/dL (8.4-10.2); Carbon Dioxide 34 mmol/L (22-29); Chloride 95 mmol/L (96-108); Creatinine Clr Calc Pharmacy 64.0; Estimated Glomerular Filt Rate 45; Potassium 4.1 mmol/L (3.3-5.1); Sodium 138 mmol/L (135-145)
[2024-11-11] MEDS: Erythromycin Base 0.5% Oph Oin 1 GM TUBE 1 CM EYE-LEFT ×2 (09:08→20:24)
--- NOTE | 2024-11-11 09:52 | HO.PM.IMPN ---
Subjective Subjective Date of Service: 11/11/24 Interval History: feels a bit better every day Physical Exam Vital Signs: Vital Signs: Last Vital Signs Temp 98.5 F 11/11/24 07:53 Pulse 91 11/11/24 07:53 Resp 20 11/11/24 07:53 BP 134/68 11/11/24 09:07 Pulse Ox 93 11/11/24 07:53 O2 Del Method Nasal Cannula 11/11/24 07:53 O2 Flow Rate 3 11/11/24 07:53 BMI result Body Mass Index 41.9 Const: General: cooperative, alert, awake and in distress mild and respiratory Nutritional Appearance: obese morbidly obese Neck: Neck: Yes trachea midline, Yes supple and Yes other (Difficult to evaluate JVD) Resp: Effort & Inspection: decreased respiratory effort Auscultation: diminished lung sounds Cardio: Rate: regular rate Rhythm: regular rhythm Heart sounds: S1 normal heart sound present, S2 normal heart sound present, no click, no gallops and no murmurs GI: Auscultation: normal bowel sounds Extrem: General: No clubbing, No cyanosis and Yes edema Objective Data Active Medications Acetaminophen (Acetaminophen 325 Mg Tablet) 975 mg PO Q6H PRN PRN Reason: Pain, Mild 1-3,fever,headache Last Admin: 11/08/24 00:00 Dose: 975 mg Documented By: DEEPA Albuterol/Ipratropium (Albuterol/Iprat 2.5/0.5mg 3 Ml Ampul.Neb) 3 ml INHALE RQ4H WHILE AWAKE PRN PRN Reason: Wheezing Apixaban (Apixaban 2.5 Mg Tablet) 2.5 mg PO BID [facility] Last Admin: 11/11/24 09:06 Dose: 2.5 mg Documented By: MARGARETH Ascorbic Acid (Ascorbic Acid 500 Mg Tablet) 1,000 mg PO DAILY [facility] On Hold: 11/07/24 17:52 Last Admin: 11/07/24 08:02 Dose: 1,000 mg Documented By: CJ Bumetanide (Bumetanide 1 Mg Tablet) 1 mg PO BID@0800,1700 [facility]; Protocol Last Admin: 11/11/24 09:07 Dose: 1 mg Documented By: MARGARETH Cyclobenzaprine HCl (Cyclobenzaprine Hcl 10 Mg Tablet) 10 mg PO TID [facility] Last Admin: 11/11/24 09:06 Dose: 10 mg Documented By: MARGARETH Dextrose (Dextrose 50 % 25 Gm/50 Ml Syringe) 25 gm IVPUSH Q15M PRN; Protocol PRN Reason: per Hypoglycemia Standing Ord. Doxazosin Mesylate (Doxazosin Mesylate 2 Mg Tablet) 4 mg PO BEDTIME [facility] Last Admin: 11/10/24 21:56 Dose: 4 mg Documented By: COLBURTherese Erythromycin (Erythromycin Base 0.5% Oph Oin 1 Gm Tube) 1 cm EYE-LEFT BID [facility] Last Admin: 11/11/24 09:08 Dose: 1 cm Documented By: MARGARETH Gabapentin (Gabapentin 300 Mg Capsule) 300 mg PO TID [facility] Last Admin: 11/11/24 09:06 Dose: 300 mg Documented By: MARGARETH Glucose (Glucose Gel 15 Gm Gel..Gram.) 15 gm PO Q15M PRN; Protocol PRN Reason: per Hypoglycemia Standing Ord. Guaifenesin (Guaifenesin 200 Mg/10 Ml 10 Ml Liquid) 10 ml PO Q4H PRN PRN Reason: Cough Last Admin: 11/09/24 17:32 Dose: 10 ml Documented By: ARGELIA Guaifenesin/Dextromethorphan (Guaifenesin Dm 100/10/5 Ml 5 Ml Syrup) 5 ml PO Q6H PRN PRN Reason: Cough Last Admin: 11/06/24 15:37 Dose: 5 ml Documented By: PHANLROCAEL Hydromorphone HCl (Hydromorphone Hcl 2 Mg Tablet) 4 mg PO Q6H PRN PRN Reason: Pain, Severe (Pain Scale 7-10) Last Admin: 11/11/24 01:14 Dose: 4 mg Documented By: JO Levofloxacin (Levaquin) 750 mg in 150 mls @ 100 mls/hr IV Q24H [facility] Last Infusion: 11/10/24 12:49 Dose: Infused Documented By: ARGELIA Insulin Human Lispro (Insulin Lispro 100 Unit/Ml 3 Ml Vial) 0 unit SUBCUT QIDACHS [facility]; Protocol Last Admin: 11/11/24 09:07 Dose: 4 unit Documented By: MARGARETH Lidocaine/Diphenhydr/Alum/Mg/Simeth (Mag&Al/Sim/Diphenhyd/Lidocaine 10 Ml Oral.Susp) 10 ml PO Q4H PRN PRN Reason: Mouth Sore Pain Last Admin: 11/09/24 17:26 Dose: 10 ml Documented By: ARGELIA Methylprednisolone Sodium Succinate (Methylprednisolone Sod Succ 125 Mg/2 Ml Vial) 40 mg IVPUSH Q12H [facility] Last Admin: 11/11/24 09:06 Dose: 40 mg Documented By: MARGARETH Ondansetron HCl (Ondansetron Hcl 4 Mg/2 Ml Vial) 4 mg IVPUSH Q8H PRN PRN Reason: Nausea and Vomiting Polyethylene Glycol (Polyethylene Glycol 3350 17 Gm Powd.Pack) 17 gm PO DAILY PRN PRN Reason: Constipation Last Admin: 11/08/24 17:07 Dose: 17 gm Documented By: CJ Sertraline HCl (Sertraline Hcl 50 Mg Tablet) 50 mg PO DAILY [facility] Last Admin: 11/11/24 09:07 Dose: 50 mg Documented By: MARGARETH Sodium Chloride (0.9 % Sodium Chloride Flush 3 Ml Syringe) 3 ml IVFLUSH QSHIFT [facility] Last Admin: 11/11/24 09:08 Dose: 3 ml Documented By: MARGARETH Trimethoprim/Sulfamethoxazole (Sulfamethox/Trimeth 800/160 Tablet) 1 tab PO Q6H [facility] Last Admin: 11/11/24 05:25 Dose: 1 tab Documented By: JO Venlafaxine HCl (Venlafaxine Hcl 25 Mg Tablet) 75 mg PO DAILY [facility] Last Admin: 11/11/24 09:06 Dose: 75 mg Documented By: MARGARETH Vitamin D (Cholecalciferol (Vitamin D3) 25 Mcg Tablet) 50 mcg PO BID [facility] On Hold: 11/07/24 17:52 Last Admin: 11/07/24 08:02 Dose: 50 mcg Documented By: CJ Zolpidem Tartrate (Zolpidem Tartrate 5 Mg Tablet) 5 mg PO BEDTIME PRN PRN Reason: Sleep Last Admin: 11/08/24 00:01 Dose: 5 mg Documented By: DEEPA Labs 11/11/24 07:20 11/11/24 07:20 Labs: Laboratory Results - last 24 hr 11/10/24 11/10/24 11/10/24 11:16 16:06 21:02 MCV MCH MCHC RDW Plt Count MPV Absolute Nucleated RBC Nucleated RBC % (auto) Anion Gap Estim Creat Clear Calc Estimated GFR POC Glucose 228 H 230 H 232 H Random Glucose Calcium 11/11/24 11/11/24 07:17 07:20 MCV 94.7 MCH 31.7 MCHC 33.5 RDW 16.9 H Plt Count 114 L MPV 11.7 Absolute Nucleated RBC 0.040 H Nucleated RBC % (auto) 0.5 H Anion Gap 13 Estim Creat Clear Calc 64.0 Estimated GFR 45 POC Glucose 237 H Random Glucose 265 H Calcium 8.3 L D Microbiology Microbiology Results: Microbiology 11/09/24 17:35 Gram Stain - Final Sputum - Expectorated Sputum Culture - Preliminary Yeast Assessment and Plan (1) Obesity: Status: Acute Plan 73M PMH stage IV colon cancer with mets to liver and lung on FOLFIRI presented with fever neutropenic sepsis and acute hypoxic respiratory failrue due to pneumonia in immunocompromised patient continue levaquin, bactrim (cover pneumocystits empirically) follow up legionella, wean o2 - now on 3L Stage IV colon cancer with liver and lung Mets Neutropenia resolved Oncology following Acute toxic metabolic encephalopathy Improving Chronic left foot fractures Nonweightbearing left lower extremity Acute on chronic diastolic CHF changed to po bumex Morbid obesity PT recommending STR DVT prophylaxis on apixaban (unclear indication) Full code reason for continued hospitalization:hypoxia Quality Stroke Does the patient have a stroke diagnosis?: No VTE Prior VTE?: No VTE Risk Level:: Medical - moderate - high VTE Device Contraindication: N/A - Device Ordered VTE Drug Contraindication: N/A - Med Ordered
[2024-11-11 11:42] LABS: Glucose, Whole Blood 250 mg/dL (60-115)
--- NOTE | 2024-11-11 13:34 | MHC.CM.PN ---
Addendum entered by Leena Evans 11/11/24 16:20: CM MET WITH PT AND SHE REPORTS PT WAS AT [facility], AND THEY DO NOT WANT TO RETURN. [facility] AND [facility] Original Note: BRICE MET WITH PT TO DISCUSS DCP PT UNDERSTANDS STR IS BEING RECOMMENDED, AND SAYS THE PLAN IS TO HOLD CHEMO TREATMENT UNTIL REHAB IS COMPLETED HE SAYS HE HAS BEEN TO [facility] AND WOULD LIKE A REFERRAL THERE WELL [facility] REFERR[facility] IS OFFERING FOR WEDNESDAY, [facility] HAS NOT RESPONDED
[2024-11-11 16:35] LABS: Glucose, Whole Blood 237 mg/dL (60-115)
[2024-11-11 16:43] LABS: Index Value 0.04 (<0.50)
[2024-11-11 20:34] LABS: Glucose, Whole Blood 209 mg/dL (60-115)
[2024-11-12 03:06] VITALS: BP 160/84; PULSE 81; RESP 20; TEMP 36.4; O2SAT 93
[2024-11-12 05:29] VITALS: BMI 39.3
[2024-11-12] MEDS: Sulfamethox/Trimeth 800/160 TABLET 1 TAB PO ×4 (05:55→23:53)
[2024-11-12 07:46] LABS: Glucose, Whole Blood 230 mg/dL (60-115)
[2024-11-12 07:58] VITALS: BP 175/82; PULSE 84; RESP 20; TEMP 36.3; O2SAT 97
--- NOTE | 2024-11-12 08:53 | P.PNIM_ITS ---
Subjective Subjective Date of Service: 11/12/24 Interval History: no complaints Physical Exam 2 Vital Signs: Vital Signs: Last Vital Signs Temp 97.3 F 11/12/24 07:58 Pulse 84 11/12/24 07:58 Resp 20 11/12/24 07:58 BP 175/82 H 11/12/24 07:58 Pulse Ox 97 11/12/24 07:58 O2 Del Method Nasal Cannula 11/12/24 07:58 O2 Flow Rate 2 11/12/24 07:58 BMI result Body Mass Index 39.3 Const: General: cooperative, alert, awake and in distress mild and respiratory Nutritional Appearance: obese morbidly obese Neck: Neck: Yes trachea midline, Yes supple and Yes other (Difficult to evaluate JVD) Resp: Effort & Inspection: decreased respiratory effort Auscultation: d iminished lung sounds Cardio: Rate: regular rate Rhythm: regular rhythm Heart sounds: S1 normal heart sound present, S2 normal heart sound present, no click, no gallops and no murmurs GI: Auscultation: normal bowel sounds Extrem: General: No clubbing, No cyanosis and Yes edema Objective Data Active Medications Acetaminophen (Acetaminophen 325 Mg Tablet) 975 mg PO Q6H PRN PRN Reason: Pain, Mild 1-3,fever,headache Last Admin: 11/08/24 00:00 Dose: 975 mg Documented By: DEEPA Albuterol/Ipratropium (Albuterol/Iprat 2.5/0.5mg 3 Ml Ampul.Neb) 3 ml INHALE RQ4H WHILE AWAKE PRN PRN Reason: Wheezing Apixaban (Apixaban 2.5 Mg Tablet) 2.5 mg PO BID [facility] Last Admin: 11/11/24 20:21 Dose: 2.5 mg Documented By: SRIRAM Ascorbic Acid (Ascorbic Acid 500 Mg Tablet) 1,000 mg PO DAILY [facility] On Hold: 11/07/24 17:52 Last Admin: 11/07/24 08:02 Dose: 1,000 mg Documented By: CJ Bumetanide (Bumetanide 1 Mg Tablet) 1 mg PO BID@0800,1700 [facility]; Protocol Last Admin: 11/11/24 16:46 Dose: 1 mg Documented By: MARGARETH Cyclobenzaprine HCl (Cyclobenzaprine Hcl 10 Mg Tablet) 10 mg PO TID [facility] Last Admin: 11/11/24 20:22 Dose: 10 mg Documented By: SRIRAM Dextrose (Dextrose 50 % 25 Gm/50 Ml Syringe) 25 gm IVPUSH Q15M PRN; Protocol PRN Reason: per Hypoglycemia Standing Ord. Doxazosin Mesylate (Doxazosin Mesylate 2 Mg Tablet) 4 mg PO BEDTIME [facility] Last Admin: 11/11/24 20:23 Dose: 4 mg Documented By: SRIRAM Erythromycin (Erythromycin Base 0.5% Oph Oin 1 Gm Tube) 1 cm EYE-LEFT BID [facility] Last Admin: 11/11/24 20:24 Dose: 1 cm Documented By: SRIRAM Gabapentin (Gabapentin 300 Mg Capsule) 300 mg PO TID [facility] Last Admin: 11/11/24 20:24 Dose: 300 mg Documented By: SRIRAM Glucose (Glucose Gel 15 Gm Gel..Gram.) 15 gm PO Q15M PRN; Protocol PRN Reason: per Hypoglycemia Standing Ord. Guaifenesin (Guaifenesin 200 Mg/10 Ml 10 Ml Liquid) 10 ml PO Q4H PRN PRN Reason: Cough Last Admin: 11/09/24 17:32 Dose: 10 ml Documented By: ARGELIA Guaifenesin/Dextromethorphan (Guaifenesin Dm 100/10/5 Ml 5 Ml Syrup) 5 ml PO Q6H PRN PRN Reason: Cough Last Admin: 11/06/24 15:37 Dose: 5 ml Documented By: CJ Hydromorphone HCl (Hydromorphone Hcl 2 Mg Tablet) 4 mg PO Q6H PRN PRN Reason: Pain, Severe (Pain Scale 7-10) Last Admin: 11/11/24 22:37 Dose: 4 mg Documented By: SRIRAM Levofloxacin (Levaquin) 750 mg in 150 mls @ 100 mls/hr IV Q24H [facility] Last Infusion: 11/11/24 14:47 Dose: Infused Documented By: MARGARETH Insulin Human Lispro (Insulin Lispro 100 Unit/Ml 3 Ml Vial) 0 unit SUBCUT QIDACHS [facility]; Protocol Last Admin: 11/11/24 22:36 Dose: 4 unit Documented By: SRIRAM Lidocaine/Diphenhydr/Alum/Mg/Simeth (Mag&Al/Sim/Diphenhyd/Lidocaine 10 Ml Oral.Susp) 10 ml PO Q4H PRN PRN Reason: Mouth Sore Pain Last Admin: 11/09/24 17:26 Dose: 10 ml Documented By: ARGELIA Methylprednisolone Sodium Succinate (Methylprednisolone Sod Succ 125 Mg/2 Ml Vial) 40 mg IVPUSH Q12H [facility] Last Admin: 11/11/24 20:24 Dose: 40 mg Documented By: SRIRAM Ondansetron HCl (Ondansetron Hcl 4 Mg/2 Ml Vial) 4 mg IVPUSH Q8H PRN PRN Reason: Nausea and Vomiting Polyethylene Glycol (Polyethylene Glycol 3350 17 Gm Powd.Pack) 17 gm PO DAILY PRN PRN Reason: Constipation Last Admin: 11/08/24 17:07 Dose: 17 gm Documented By: CJ Sertraline HCl (Sertraline Hcl 50 Mg Tablet) 50 mg PO DAILY [facility] Last Admin: 11/11/24 09:07 Dose: 50 mg Documented By: MARGARETH Sodium Chloride (0.9 % Sodium Chloride Flush 3 Ml Syringe) 3 ml IVFLUSH QSHIFT [facility] Last Admin: 11/12/24 01:09 Dose: Not Given Documented By: SRIRAM Non-Admin Reason: Unable to Scan Barcode Trimethoprim/Sulfamethoxazole (Sulfamethox/Trimeth 800/160 Tablet) 1 tab PO Q6H [facility] Last Admin: 11/12/24 05:55 Dose: 1 tab Documented By: SRIRAM Venlafaxine HCl (Venlafaxine Hcl 25 Mg Tablet) 75 mg PO DAILY [facility] Last Admin: 11/11/24 09:06 Dose: 75 mg Documented By: MARGARETH Vitamin D (Cholecalciferol (Vitamin D3) 25 Mcg Tablet) 50 mcg PO BID [facility] On Hold: 11/07/24 17:52 Last Admin: 11/07/24 08:02 Dose: 50 mcg Documented By: CJ Zolpidem Tartrate (Zolpidem Tartrate 5 Mg Tablet) 5 mg PO BEDTIME PRN PRN Reason: Sleep Last Admin: 11/08/24 00:01 Dose: 5 mg Documented By: DEEPA Labs 11/11/24 07:20 11/11/24 07:20 Labs: Laboratory Results - last 24 hr 11/07/24 11/08/24 11/11/24 10:11 15:09 11:36 POC Glucose 250 H Ur L.pneumophila Ag Not Detected Aspergillus Ag (EIA) Not Detected Aspergillus Index Value 0.04 11/11/24 11/11/24 11/12/24 16:22 20:31 07:38 POC Glucose 237 H 209 H 230 H Ur L.pneumophila Ag Aspergillus Ag (EIA) Aspergillus Index Value Microbiology Microbiology Results: Microbiology 11/09/24 17:35 Gram Stain - Final Sputum - Expectorated Sputum Culture - Preliminary Yeast Assessment and Plan (1) Obesity: Status: Acute Plan 73M PMH stage IV colon cancer with mets to liver and lung on FOLFIRI presented with fever neutropenic sepsis and acute hypoxic respiratory failrue due to pneumonia in immunocompromised patient continue levaquin, bactrim (cover pneumocystits empirically), likely 2 week course follow up legionella, wean o2 - now on 2L Stage IV colon cancer with liver and lung Mets Neutropenia resolved Oncology following Acute toxic metabolic encephalopathy Improving Chronic left foot fractures Nonweightbearing left lower extremity Acute on chronic diastolic CHF changed to po bumex Morbid obesity PT recommending STR DVT prophylaxis on apixaban (unclear indication) Full code reason for continued hospitalization:hypoxia, dispo planning Quality Stroke Does the patient have a stroke diagnosis?: No VTE Prior VTE?: No VTE Risk Level:: Medical - moderate - high VTE Device Contraindication: N/A - Device Ordered VTE Drug Contraindication: N/A - Med Ordered
[2024-11-12] MEDS: 0.9 % Sodium Chloride Flush 3 ML SYRINGE IVFLUSH ×3 (09:01→21:12)
[2024-11-12 11:44] LABS: Glucose, Whole Blood 230 mg/dL (60-115)
[2024-11-12 11:56] VITALS: BP 137/67; PULSE 88; RESP 20; TEMP 36.4; O2SAT 97
[2024-11-12 15:56] LABS: Glucose, Whole Blood 244 mg/dL (60-115)
[2024-11-12 16:00] VITALS: BP 149/82; PULSE 103; RESP 20; TEMP 36.7; O2SAT 93
[2024-11-12 19:32] VITALS: BP 145/76; PULSE 98; RESP 20; TEMP 36.6; O2SAT 97
[2024-11-12 20:12] LABS: Glucose, Whole Blood 192 mg/dL (60-115)
[2024-11-12] MEDS: Erythromycin Base 0.5% Oph Oin 1 GM TUBE 1 CM EYE-LEFT (21:12)
[2024-11-12 23:23] VITALS: BP 158/80; PULSE 98; RESP 18; TEMP 36.6; O2SAT 94
[2024-11-13] VITALS (7 sets, daily range): BP systolic 120–158; BP diastolic 63–81; PULSE 84–99; RESP 18–20; TEMP 36.1–36.6; O2SAT 92–96; BMI 39.0
[2024-11-13] MEDS: Sulfamethox/Trimeth 800/160 TABLET 1 TAB PO ×3 (05:24→17:04)
[2024-11-13 07:19] LABS: Glucose, Whole Blood 233 mg/dL (60-115)
[2024-11-13] MEDS: 0.9 % Sodium Chloride Flush 3 ML SYRINGE IVFLUSH ×3 (09:17→21:42)
--- NOTE | 2024-11-13 09:43 | P.PNIM_ITS ---
Subjective Subjective Date of Service: 11/13/24 Interval History: no complaints Physical Exam 2 Vital Signs: Vital Signs: Last Vital Signs Temp 97.8 F 11/13/24 07:13 Pulse 84 11/13/24 07:13 Resp 20 11/13/24 07:13 BP 153/72 H 11/13/24 07:13 Pulse Ox 93 11/13/24 07:13 O2 Del Method Nasal Cannula 11/13/24 07:13 O2 Flow Rate 2 11/13/24 07:13 BMI result Body Mass Index 39.0 Const: General: cooperative, alert, awake and in distress mild and respiratory Nutritional Appearance: obese morbidly obese Neck: Neck: Yes trachea midline, Yes supple and Yes other (Difficult to evaluate JVD) Resp: Effort & Inspection: decreased respiratory effort Auscultation: d iminished lung sounds Cardio: Rate: regular rate Rhythm: regular rhythm Heart sounds: S1 normal heart sound present, S2 normal heart sound present, no click, no gallops and no murmurs GI: Auscultation: normal bowel sounds Extrem: General: No clubbing, No cyanosis and Yes edema Objective Data Active Medications Acetaminophen (Acetaminophen 325 Mg Tablet) 975 mg PO Q6H PRN PRN Reason: Pain, Mild 1-3,fever,headache Last Admin: 11/08/24 00:00 Dose: 975 mg Documented By: DEEPA Apixaban (Apixaban 2.5 Mg Tablet) 2.5 mg PO BID [facility] Last Admin: 11/13/24 09:15 Dose: 2.5 mg Documented By: BELINDA Ascorbic Acid (Ascorbic Acid 500 Mg Tablet) 1,000 mg PO DAILY [facility] On Hold: 11/07/24 17:52 Last Admin: 11/07/24 08:02 Dose: 1,000 mg Documented By: CJ Bumetanide (Bumetanide 1 Mg Tablet) 1 mg PO BID@0800,1700 [facility]; Protocol Last Admin: 11/13/24 09:15 Dose: 1 mg Documented By: BELINDA Cyclobenzaprine HCl (Cyclobenzaprine Hcl 10 Mg Tablet) 10 mg PO TID [facility] Last Admin: 11/13/24 09:15 Dose: 10 mg Documented By: BELINDA Dextrose (Dextrose 50 % 25 Gm/50 Ml Syringe) 25 gm IVPUSH Q15M PRN; Protocol PRN Reason: per Hypoglycemia Standing Ord. Doxazosin Mesylate (Doxazosin Mesylate 2 Mg Tablet) 4 mg PO BEDTIME [facility] Last Admin: 11/12/24 21:11 Dose: 4 mg Documented By: SRIRAM Erythromycin (Erythromycin Base 0.5% Oph Oin 1 Gm Tube) 1 cm EYE-LEFT BID [facility] Last Admin: 11/13/24 09:17 Dose: Not Given Documented By: BELINDA Non-Admin Reason: Patient Refused Gabapentin (Gabapentin 300 Mg Capsule) 300 mg PO TID [facility] Last Admin: 11/13/24 09:15 Dose: 300 mg Documented By: BELINDA Glucose (Glucose Gel 15 Gm Gel..Gram.) 15 gm PO Q15M PRN; Protocol PRN Reason: per Hypoglycemia Standing Ord. Guaifenesin (Guaifenesin 200 Mg/10 Ml 10 Ml Liquid) 10 ml PO Q4H PRN PRN Reason: Cough Last Admin: 11/09/24 17:32 Dose: 10 ml Documented By: ARGELIA Guaifenesin/Dextromethorphan (Guaifenesin Dm 100/10/5 Ml 5 Ml Syrup) 5 ml PO Q6H PRN PRN Reason: Cough Last Admin: 11/06/24 15:37 Dose: 5 ml Documented By: NEALNLROCAEL Hydromorphone HCl (Hydromorphone Hcl 2 Mg Tablet) 4 mg PO Q6H PRN PRN Reason: Pain, Severe (Pain Scale 7-10) Last Admin: 11/13/24 05:26 Dose: 4 mg Documented By: SRIRAM Insulin Human Lispro (Insulin Lispro 100 Unit/Ml 3 Ml Vial) 0 unit SUBCUT QIDACHS [facility]; Protocol Last Admin: 11/13/24 09:17 Dose: 4 unit Documented By: BELINDA Levofloxacin (Levofloxacin 750 Mg Tablet) 750 mg PO Q24H [facility] Last Admin: 11/12/24 12:01 Dose: 750 mg Documented By: DOBROB Lidocaine/Diphenhydr/Alum/Mg/Simeth (Mag&Al/Sim/Diphenhyd/Lidocaine 10 Ml Oral.Susp) 10 ml PO Q4H PRN PRN Reason: Mouth Sore Pain Last Admin: 11/09/24 17:26 Dose: 10 ml Documented By: ARGELIA Methylprednisolone Sodium Succinate (Methylprednisolone Sod Succ 125 Mg/2 Ml Vial) 40 mg IVPUSH Q12H [facility] Last Admin: 11/13/24 09:17 Dose: 40 mg Documented By: BELINDA Ondansetron HCl (Ondansetron Hcl 4 Mg/2 Ml Vial) 4 mg IVPUSH Q8H PRN PRN Reason: Nausea and Vomiting Polyethylene Glycol (Polyethylene Glycol 3350 17 Gm Powd.Pack) 17 gm PO DAILY PRN PRN Reason: Constipation Last Admin: 11/08/24 17:07 Dose: 17 gm Documented By: CJ Sertraline HCl (Sertraline Hcl 50 Mg Tablet) 50 mg PO DAILY [facility] Last Admin: 11/13/24 09:15 Dose: 50 mg Documented By: BELINDA Sodium Chloride (0.9 % Sodium Chloride Flush 3 Ml Syringe) 3 ml IVFLUSH QSHIFT [facility] Last Admin: 11/13/24 09:17 Dose: 3 ml Documented By: BELINAD Trimethoprim/Sulfamethoxazole (Sulfamethox/Trimeth 800/160 Tablet) 1 tab PO Q6H [facility] Last Admin: 11/13/24 05:24 Dose: 1 tab Documented By: SRIRAM Venlafaxine HCl (Venlafaxine Hcl 25 Mg Tablet) 75 mg PO DAILY [facility] Last Admin: 11/13/24 09:14 Dose: 75 mg Documented By: BELINDA Vitamin D (Cholecalciferol (Vitamin D3) 25 Mcg Tablet) 50 mcg PO BID [facility] On Hold: 11/07/24 17:52 Last Admin: 11/07/24 08:02 Dose: 50 mcg Documented By: CJ Zolpidem Tartrate (Zolpidem Tartrate 5 Mg Tablet) 5 mg PO BEDTIME PRN PRN Reason: Sleep Last Admin: 11/08/24 00:01 Dose: 5 mg Documented By: DEEPA Labs 11/11/24 07:20 11/11/24 07:20 Labs: Laboratory Results - last 24 hr 11/12/24 11/12/24 11/12/24 11:40 15:45 20:01 POC Glucose 230 H 244 H 192 H 11/13/24 07:12 POC Glucose 233 H Microbiology Microbiology Results: Microbiology 11/09/24 17:35 Gram Stain - Final Sputum - Expectorated Sputum Culture - Final Maty albicans Assessment and Plan (1) Obesity: Status: Acute Plan 73M PMH stage IV colon cancer with mets to liver and lung on FOLFIRI presented with fever neutropenic sepsis and acute hypoxic respiratory failrue due to pneumonia in immunocompromised patient continue levaquin, bactrim (cover pneumocystits empirically), likely 2 week course Legionella negative, wean o2 - now on 2L Stage IV colon cancer with liver and lung Mets Neutropenia resolved Oncology following Acute toxic metabolic encephalopathy Improving Chronic left foot fractures Nonweightbearing left lower extremity Acute on chronic diastolic CHF changed to po bumex Morbid obesity PT recommending STR DVT prophylaxis on apixaban (unclear indication) Full code reason for continued hospitalization:dispo planning Quality Stroke Does the patient have a stroke diagnosis?: No VTE Prior VTE?: No VTE Risk Level:: Medical - moderate - high VTE Device Contraindication: N/A - Device Ordered VTE Drug Contraindication: N/A - Med Ordered
--- NOTE | 2024-11-13 09:44 | PM.DS ---
DS: Providers Provider Date of Service: 11/14/24 Date of admission: 11/03/24 13:22 Date of discharge: 11/14/24 Primary care physician: Oleg Hidalgo MD Consults: 11/03/24 14:08 Consult to Hematology / Oncology Routine Consulting Provider: [facility] Oncology/Hematology Reason for consultation: metastatic cancer, chemo; neutropenic fever Has provider been notified: No 11/03/24 14:23 Consult to Wound Care Routine Reason for consultation: sacral pressure wounds 11/05/24 15:10 Consult to Infectious Diseases Routine Consulting Provider: [facility] Reason for consultation: neutropenic fever /pneumonia Has provider been notified: No 11/06/24 08:18 Consult to Pulmonology Routine Consulting Provider: [facility] Pulmonology Services Reason for consultation: neurtopenic fever/sepsis /pneumonia,hypoxia 11/06/24 08:22 Consult to Cardiology Routine Consulting Provider: [facility] Reason for consultation: nsvt/tachycardia Has provider been notified: No 11/07/24 10:55 Consult to Critical Care Routine Consulting Provider: Marcus Sanchez Reason for consultation: level of care Has provider been notified: No 11/10/24 15:31 Consult to Wound Care Routine Reason for consultation: abd folds - open areas w/ moderate amt of bleeding DS: Diagnosis Discharge Diagnosis (1) Obesity: Status: Acute DS: Summary Hospital Course Hospital Course: from initial hpi: 73-year-old male with metastatic colon cancer who was brought in due to left foot pain found to have fever. Patient is currently undergoing chemotherapy. In general he is a poor historian but he describes pain in his left foot as well as cough. In the emergency department he was noted to have fever with temperature as high as 103.3 degrees. He was tachycardic, tachypneic and hypoxic with an oxygen saturation of 87% on room air. Lab work was significant for leukopenia and neutropenia. Chest x-ray showed possibility of pneumonia. Lactic acid was elevated at 2.6, Patient was started on broad-spectrum antibiotics and received IV fluid. He denies any shortness of breath. In terms of foot pain it appears he had an ankle x-ray at the end of August due to a fall sustained on September 26, that x-ray as well as an ankle x-ray obtained on November 01 was negative but a foot x-ray showed acute to subacute fractures involving the proximal metaphysis of the 2nd 3rd and 4th metatarsals and possibly the 1st - he was referred to orthopedics at that time. He states that he is unable to ambulate without pain. History is somewhat limited. hospital course: Patient was admitted for neutropenic fever/severe sepsis/acute hypoxic respiratory failure due to pneumonia in immunocompromised patient with metastatic colon cancer with Mets to liver and lung on chemotherapy. Was treated with IV fluids, vancomycin and Zosyn, was seen by Pulmonary who change patient to levofloxacin and Bactrim and recommended completing 2 week course, end date 11/21/2024. Oxygen was slowly weaned and is on 2 L at time of discharge. Course was also complicated by acute on chronic diastolic CHF. Patient improved with IV diuresis was seen by Cardiology recommended Bumex 1 mg b.i.d. on discharge. For stage IV colon cancer with liver and lung Mets neutropenia resolved we will follow up with Oncology as outpatient. For acute toxic metabolic encephalopathy this resolved was likely combination of sepsis and hospital delirium. For chronic left foot fractures patient is nonweightbearing in left lower extremity was seen by physical therapy recommended short-term rehab to which patient will be discharged he is expected require less than 30 days. Time Attestation Discharge Coordination Time (in mins): 37 Quality: Safe Use of Opioids Does Pt have an Active Cancer Diagnosis on the Problem List?: Yes Opioid Measure Date for [facility] Report: 10/15/24 Opioid Measure Time for [facility] Report: 10:29 Quality: Stroke Does the patient have a stroke diagnosis?: No Physical Exam Vital Signs: Vital Signs: Last Vital Signs Temp 97.8 F 11/13/24 07:13 Pulse 84 11/13/24 07:13 Resp 20 11/13/24 07:13 BP 153/72 H 11/13/24 07:13 Pulse Ox 93 11/13/24 07:13 O2 Del Method Nasal Cannula 11/13/24 07:13 O2 Flow Rate 2 11/13/24 07:13 BMI result Body Mass Index 39.0 Const: General: cooperative, alert, awake and in distress mild and respiratory Nutritional Appearance: obese morbidly obese Neck: Neck: Yes trachea midline, Yes supple and Yes other (Difficult to evaluate JVD) Resp: Effort & Inspection: decreased respiratory effort Auscultation: diminished lung sounds Cardio: Rate: regular rate Rhythm: regular rhythm Heart sounds: S1 normal heart sound present, S2 normal heart sound present, no click, no gallops and no murmurs GI: Auscultation: normal bowel sounds Extrem: General: No clubbing, No cyanosis and Yes edema DS: Data Data Completed and Pending Labs on day of discharge: Laboratory Results - last 24 hr 11/12/24 11/12/24 11/12/24 11:40 15:45 20:01 POC Glucose 230 H 244 H 192 H 11/13/24 07:12 POC Glucose 233 H Discharge Plan Discharge Anticipated Discharge Date/Time: 11/13/24 09:36 Patient Disposition: Xfer SNF Discharge Diagnosis: pna, chf Referrals: Po,Oleg Rai MD [Primary Care Provider, Internal Medicine] - 1 Week Discharge Medications: New sulfamethoxazole-trimethoprim 800-160 mg Tablet 1 tab PO BID 8 Days Qty: 16 0RF bumetanide 1 mg Tablet 1 mg PO BID@0800,1700 Qty: 0 0RF Protocol: Hold for SBP< HOLD for SBP < : 90 zolpidem 5 mg Tablet 5 mg PO BEDTIME PRN (Reason: Sleep) Qty: 0 0RF levofloxacin 750 mg Tablet 750 mg PO Q24H 8 Days Qty: 8 0RF Continued venlafaxine 75 mg tablet 75 mg PO DAILY Qty: 90 2RF (DME) Bariatric commode See Rx Instructions .Route .MEDSUPPLY Qty: 1 0RF Rx Instructions: As directed (DME) Bariatric hospital bed See Rx Instructions .Route .MEDSUPPLY Qty: 1 0RF Rx Instructions: As directed (DME) Bariatric walker See Rx Instructions .Route .MEDSUPPLY Qty: 1 0RF Rx Instructions: [place] Bariat[place] See Rx Instructions .Route .MEDSUPPLY Qty: 1 0RF Rx Instructions: As directed dexamethasone 4 mg Tablet 4 mg PO BID Qty: 30 3RF Rx Instructions: for 2 days after chemo diphenoxylate-atropine 2.5-0.025 mg tablet 1 tab PO QID PRN (Reason: Diarrhea) Qty: 60 0RF cholecalciferol (vitamin D3) [Vitamin D3] 50 mcg (2,000 unit) tablet 50 mcg PO BID Qty: 90 3RF terazosin 5 mg capsule 5 mg PO BEDTIME Eliquis 2.5 mg tablet 2.5 mg PO BID gabapentin 300 mg capsule 300 mg PO TID sertraline 50 mg tablet 50 mg PO DAILY ascorbic acid (vitamin C) [Vitamin C] 500 mg tablet 1,000 mg PO DAILY hydromorphone 4 mg Tablet 4 mg PO DAILY PRN (Reason: Pain (Scale Score 7-10)) (DME) compress.stocking,knee,reg,lrg Misc See Rx Instructions .Route Qty: 12 1RF Rx Instructions: As directed 20-30 mm HG cyclobenzaprine 10 mg tablet 10 mg PO TID Qty: 90 4RF (DME) Shower Chair Misc See Rx Instructions .Route Qty: 1 0RF Rx Instructions: As directed (DME) step stool with handle See Rx Instructions .Route .MEDSUPPLY Qty: 1 0RF Rx Instructions: As directed Changed hydromorphone 4 mg tablet 4 mg PO BID PRN (Reason: Pain (Scale Score 4-6)) 10 Days Qty: 10 0RF Rx Instructions: Partial Fill upon patient request. - covering for Dr. Hidalgo Discontinued captopril 25 mg tablet 25 mg PO BID 90 Days Qty: 180 1RF zolpidem 12.5 mg tablet,ext release multiphase 12.5 mg PO BEDTIME PRN (Reason: Sleep) Discharge Orders: Discharge Order (Routine); Ordered 11/13/24 Ordered By: John Carter Diet: Advance to usual diet Activity on Discharge: STEFANIE BARR Stand Alone Forms: Patient Portal Discharge page Print Language: Libyan Care Plan Goals: recovery Health Concerns: pna, chf Plan of Treatment: started bumex 1mg bid, 8 more days levaquin and bactrim Assessment: see above
[2024-11-13 11:12] LABS: Glucose, Whole Blood 206 mg/dL (60-115)
--- NOTE | 2024-11-13 11:40 | MHC.CM.PN ---
Addendum entered by Rosenda Viera 11/13/24 16:31: This CM met with pts present at bedside per her request to discuss the discharge plan, she is aware that pt will likely be medically cleared for discharge tomorrow, pending insurance auth for STR at [facility]. Original Note: EMR reviewed and per MD rounds, pt is medically cleared for discharge pending auth for STR. [facility] is offering a bed, they are requesting an updated PT note in order to go to auth. PT notified, daily PT note pending.
--- NOTE | 2024-11-13 12:03 | PM.EVENT ---
Event Note Date of Service: 11/13/24 Event Note: X-ray imaging consistent with Lis kenneth fx Splint Keep splint c/d/i Elevation above heart level NWB LLE Followup with foot and ankle surgeon Time Spent With Patient Time: Total time managing care of this patient today ____ minutes.
[2024-11-13 16:40] LABS: Glucose, Whole Blood 278 mg/dL (60-115)
--- NOTE | 2024-11-13 16:57 | MHC.CLN ---
F/U SKIN WITH STAGE III PRESSURE INJURY TO COCCYX PO INTAKE 50-100% REGULAR DIET PATIENT WITH ELEVATED BLOOD GLUCOSE NO SUPPLEMENT AT THIS TIME CONTINUE TO MONITOR PO INTAKE AND SKIN INTEGRITY
[2024-11-13 20:22] LABS: Glucose, Whole Blood 215 mg/dL (60-115)
[2024-11-13] MEDS: Erythromycin Base 0.5% Oph Oin 1 GM TUBE 1 CM EYE-LEFT (21:41)
[2024-11-14] MEDS: Sulfamethox/Trimeth 800/160 TABLET 1 TAB PO ×3 (00:08→12:00)
[2024-11-14 03:32] VITALS: BP 144/68; PULSE 79; RESP 18; TEMP 36.3; O2SAT 94
[2024-11-14 04:58] VITALS: BMI 39.7
[2024-11-14 07:35] VITALS: BP 144/74; PULSE 74; RESP 12; TEMP 36.7; O2SAT 96
[2024-11-14 07:36] LABS: Glucose, Whole Blood 245 mg/dL (60-115)
[2024-11-14] MEDS: 0.9 % Sodium Chloride Flush 3 ML SYRINGE IVFLUSH (08:10)
[2024-11-14 08:11] VITALS: BP 144/74
--- NOTE | 2024-11-14 09:07 | P.PNIM_ITS ---
Subjective Subjective Date of Service: 11/14/24 Interval History: no complaints Physical Exam 2 Vital Signs: Vital Signs: Last Vital Signs Temp 98.0 F 11/14/24 07:35 Pulse 74 11/14/24 07:35 Resp 12 11/14/24 07:35 BP 144/74 H 11/14/24 08:11 Pulse Ox 96 11/14/24 07:35 O2 Del Method Nasal Cannula 11/14/24 07:35 O2 Flow Rate 1 11/14/24 07:35 BMI result Body Mass Index 39.7 Const: General: cooperative, alert, awake and in distress mild and respiratory Nutritional Appearance: obese morbidly obese Neck: Neck: Yes trachea midline, Yes supple and Yes other (Difficult to evaluate JVD) Resp: Effort & Inspection: decreased respiratory effort Auscultation: d iminished lung sounds Cardio: Rate: regular rate Rhythm: regular rhythm Heart sounds: S1 normal heart sound present, S2 normal heart sound present, no click, no gallops and no murmurs GI: Auscultation: normal bowel sounds Extrem: General: No clubbing, No cyanosis and Yes edema Objective Data Active Medications Acetaminophen (Acetaminophen 325 Mg Tablet) 975 mg PO Q6H PRN PRN Reason: Pain, Mild 1-3,fever,headache Last Admin: 11/08/24 00:00 Dose: 975 mg Documented By: DEEPA Apixaban (Apixaban 2.5 Mg Tablet) 2.5 mg PO BID [facility] Last Admin: 11/14/24 08:12 Dose: 2.5 mg Documented By: EDVIN Ascorbic Acid (Ascorbic Acid 500 Mg Tablet) 1,000 mg PO DAILY [facility] On Hold: 11/07/24 17:52 Last Admin: 11/07/24 08:02 Dose: 1,000 mg Documented By: CJ Bumetanide (Bumetanide 1 Mg Tablet) 1 mg PO BID@0800,1700 [facility]; Protocol Last Admin: 11/14/24 08:11 Dose: 1 mg Documented By: EDVIN Cyclobenzaprine HCl (Cyclobenzaprine Hcl 10 Mg Tablet) 10 mg PO TID [facility] Last Admin: 11/14/24 08:12 Dose: 10 mg Documented By: EDVIN Dextrose (Dextrose 50 % 25 Gm/50 Ml Syringe) 25 gm IVPUSH Q15M PRN; Protocol PRN Reason: per Hypoglycemia Standing Ord. Doxazosin Mesylate (Doxazosin Mesylate 2 Mg Tablet) 4 mg PO BEDTIME [facility] Last Admin: 11/13/24 21:41 Dose: 4 mg Documented By: SRIRAM Erythromycin (Erythromycin Base 0.5% Oph Oin 1 Gm Tube) 1 cm EYE-LEFT BID [facility] Last Admin: 11/14/24 08:20 Dose: Not Given Documented By: EDVIN Non-Admin Reason: Patient Refused Gabapentin (Gabapentin 300 Mg Capsule) 300 mg PO TID [facility] Last Admin: 11/14/24 08:12 Dose: 300 mg Documented By: EDVIN Glucose (Glucose Gel 15 Gm Gel..Gram.) 15 gm PO Q15M PRN; Protocol PRN Reason: per Hypoglycemia Standing Ord. Guaifenesin (Guaifenesin 200 Mg/10 Ml 10 Ml Liquid) 10 ml PO Q4H PRN PRN Reason: Cough Last Admin: 11/09/24 17:32 Dose: 10 ml Documented By: ARGELIA Guaifenesin/Dextromethorphan (Guaifenesin Dm 100/10/5 Ml 5 Ml Syrup) 5 ml PO Q6H PRN PRN Reason: Cough Last Admin: 11/06/24 15:37 Dose: 5 ml Documented By: PHANLYM Hydromorphone HCl (Hydromorphone Hcl 2 Mg Tablet) 4 mg PO Q6H PRN PRN Reason: Pain, Severe (Pain Scale 7-10) Last Admin: 11/13/24 13:59 Dose: 4 mg Documented By: BELINDA Insulin Human Lispro (Insulin Lispro 100 Unit/Ml 3 Ml Vial) 0 unit SUBCUT QIDACHS [facility]; Protocol Last Admin: 11/14/24 08:10 Dose: 4 unit Documented By: EDVIN Levofloxacin (Levofloxacin 750 Mg Tablet) 750 mg PO Q24H [facility] Last Admin: 11/13/24 11:46 Dose: 750 mg Documented By: BELINDA Lidocaine/Diphenhydr/Alum/Mg/Simeth (Mag&Al/Sim/Diphenhyd/Lidocaine 10 Ml Oral.Susp) 10 ml PO Q4H PRN PRN Reason: Mouth Sore Pain Last Admin: 11/09/24 17:26 Dose: 10 ml Documented By: RHONDAFAAnitha Methylprednisolone Sodium Succinate (Methylprednisolone Sod Succ 125 Mg/2 Ml Vial) 40 mg IVPUSH Q12H [facility] Last Admin: 11/14/24 08:11 Dose: 40 mg Documented By: EDVIN Ondansetron HCl (Ondansetron Hcl 4 Mg/2 Ml Vial) 4 mg IVPUSH Q8H PRN PRN Reason: Nausea and Vomiting Polyethylene Glycol (Polyethylene Glycol 3350 17 Gm Powd.Pack) 17 gm PO DAILY PRN PRN Reason: Constipation Last Admin: 11/08/24 17:07 Dose: 17 gm Documented By: CJ Sertraline HCl (Sertraline Hcl 50 Mg Tablet) 50 mg PO DAILY [facility] Last Admin: 11/14/24 08:12 Dose: 50 mg Documented By: EDVIN Sodium Chloride (0.9 % Sodium Chloride Flush 3 Ml Syringe) 3 ml IVFLUSH QSHIFT [facility] Last Admin: 11/14/24 08:10 Dose: 3 ml Documented By: EDVIN Trimethoprim/Sulfamethoxazole (Sulfamethox/Trimeth 800/160 Tablet) 1 tab PO Q6H [facility] Last Admin: 11/14/24 06:11 Dose: 1 tab Documented By: SRIRAM Venlafaxine HCl (Venlafaxine Hcl 25 Mg Tablet) 75 mg PO DAILY [facility] Last Admin: 11/14/24 08:11 Dose: 75 mg Documented By: EDVIN Vitamin D (Cholecalciferol (Vitamin D3) 25 Mcg Tablet) 50 mcg PO BID [facility] On Hold: 11/07/24 17:52 Last Admin: 11/07/24 08:02 Dose: 50 mcg Documented By: CJ Zolpidem Tartrate (Zolpidem Tartrate 5 Mg Tablet) 5 mg PO BEDTIME PRN PRN Reason: Sleep Last Admin: 11/08/24 00:01 Dose: 5 mg Documented By: FALGUNIISHA Labs 11/11/24 07:20 11/11/24 07:20 Labs: Laboratory Results - last 24 hr 11/13/24 11/13/24 11/13/24 11:09 16:31 20:17 POC Glucose 206 H 278 H 215 H 11/14/24 07:30 POC Glucose 245 H Assessment and Plan (1) Obesity: Status: Acute Plan 73M PMH stage IV colon cancer with mets to liver and lung on FOLFIRI presented with fever neutropenic sepsis and acute hypoxic respiratory failrue due to pneumonia in immunocompromised patient continue levaquin, bactrim (cover pneumocystits empirically), likely 2 week course Legionella negative, wean o2 - now on 1L Stage IV colon cancer with liver and lung Mets Neutropenia resolved Oncology following Acute toxic metabolic encephalopathy Improving Chronic left foot fractures Nonweightbearing left lower extremity Acute on chronic diastolic CHF changed to po bumex Morbid obesity PT recommending STR DVT prophylaxis on apixaban (unclear indication) Full code reason for continued hospitalization:dispo planning Quality Stroke Does the patient have a stroke diagnosis?: No VTE Prior VTE?: No VTE Risk Level:: Medical - moderate - high VTE Device Contraindication: N/A - Device Ordered VTE Drug Contraindication: N/A - Med Ordered
--- NOTE | 2024-11-14 11:17 | HO.WOUND ---
Wound Consult: Follow up 73yr old?[place] [facility] - See progress notes and H&P for detailed history.? Wound consult placed for Skin folds and follow up for Coccyx wound POA.? Patient agreeable to assessment and photo documentation. 11/04/24 11/08/24 11/10/24 11/14/24 Coccyx Etiology: ??Stage 3 Pressure Injury Present on Admission Measurements: 4cm x 1cm x 0.2cm Wound Bed: Overall improving wound bed - red pink wound bed with skin in between Edges: ? epibole and macerated Shawna wound: scar tissue noted along with MASD and Right buttock with small open wound clean pink wound bed Pain: patient reports pain and tenderness with cleansing Goals of Treatment: ? Off load pressure and triad to allow for moist wound healing. Skin folds assessed - no photo available - left abdomen skin fold with intertrigo noted - partial thickness tissue loss at base of fold - improving since 11/10/24 - MASD noted - Treated with Triad and Interdry recommend continue with interdry and Triad use. Recommendations: 1. Turn and Reposition every 2 hours and as needed for patient comfort.? Use pillows or wedges to support off loading positions. 2. Off Load all bony prominences with use of pillows and heel boots if needed.? Apply Preventative foams where needed. ? 3. Monitor for incontinence and moisture control, use barrier creams when needed for prevention and treatment. 4. Provide adequate and supplemental nutrition.? 5. Continue low air loss mattress. 6. When applicable maintain blood glucose levels per Providers order. Coccyx - Off Load Pressure with Q2 hr turns and use of pillows - Cleanse with PH balance spray or wipes, pat dry. ?Apply thin layer of Triad to wound bed - only pat and dab no scrub and rub when soiling occurs. Reapply thin layer PRN after each episode of incontinence. Do not use foam as this is trapping moisture with in the gluteal fold. Skin Folds - Routine cleaning. Apply Triad daily followed by Interdry. Tuck Interdry AG Sheet into skin fold to wick and translocate moisture away from skin fold.? Be sure to leave at least 2 inch of fabric exposed outside of skin fold.? Change after 5 days or when soiled. Re-consult wound care Nurse for wound deterioration or wound changes.
[2024-11-14 11:24] LABS: Glucose, Whole Blood 217 mg/dL (60-115)
--- NOTE | 2024-11-14 11:33 | MHC.CM.PN ---
Pt remains medically cleared for discharge. Insurance authorization received for pt to go to [facility] at [facility] today, he will transport there via BLS/[facility]. Second IMM given 11/14. Pt aware of discharge plan, this CM also called pts aNra to notify her of the discharge plan, voicemail left.
[2024-11-14 12:00] VITALS: BP 147/80; PULSE 95; RESP 18; TEMP 35.9; O2SAT 94
[2024-11-16 04:17] LABS: Pneumocystis jir Ql PCR DETECTED; Pneumocystis jir source SPUTUM
== END 2024-11-14 15:20 | disposition skilled nursing facility (03) | DRG 720 ==
LOC: HO.ED 10:47 → HO.EDOVER 13:39 → HO.IMC 19:34
PROVIDERS: Hospitalist; Internal Medicine; Admitting Provider Physician Assistant Medical; Emergency Provider Emergency Medicine; PCP Internal Medicine; Visit Provider Internal Medicine
DX: A41.9 Sepsis, unspecified organism (principal); J96.01 Acute respiratory failure with hypoxia; D61.818 Other pancytopenia; D84.9 Immunodeficiency, unspecified; C78.01 Secondary malignant neoplasm of right lung; G92.8 Other toxic encephalopathy; I50.33 Acute on chronic diastolic (congestive) heart failure; C78.02 Secondary malignant neoplasm of left lung; L89.152 Pressure ulcer of sacral region, stage 2; C19 Malignant neoplasm of rectosigmoid junction; C78.7 Secondary malignant neoplasm of liver and intrahepatic bile duct; N40.0 Benign prostatic hyperplasia without lower urinary tract symptoms; R00.0 Tachycardia, unspecified; E66.01 Morbid (severe) obesity due to excess calories; T38.0X5A Adverse effect of glucocorticoids and synthetic analogues, initial encounter; J44.0 Chronic obstructive pulmonary disease with (acute) lower respiratory infection; Z68.39 Body mass index [BMI] 39.0-39.9, adult; D70.9 Neutropenia, unspecified; F05 Delirium due to known physiological condition; I11.0 Hypertensive heart disease with heart failure; Z71.3 Dietary counseling and surveillance; J98.11 Atelectasis; G47.33 Obstructive sleep apnea (adult) (pediatric); R65.20 Severe sepsis without septic shock; F39 Unspecified mood [affective] disorder; S92.322A Displaced fracture of second metatarsal bone, left foot, initial encounter for closed fracture; S92.332A Displaced fracture of third metatarsal bone, left foot, initial encounter for closed fracture; S92.345A Nondisplaced fracture of fourth metatarsal bone, left foot, initial encounter for closed fracture; X58.XXXA Exposure to other specified factors, initial encounter; Z79.01 Long term (current) use of anticoagulants; Z87.891 Personal history of nicotine dependence; Z79.899 Other long term (current) drug therapy
CPT/HCPCS: 36415; 70450; 71045; 71046; 71275; 73630; 80048; 80076; 80202; 81001; 82140; 82565; 82607; 82746; 82803; 82947; 83036; 83605; 83615; 83735; 83880; 84100; 84443; 84484; 84550; 85007; 85025; 85027; 85610; 85652; 87040; 87070; 87077; 87205; 87305; 87449; 87633; 87637; 87640; 87641; 87798; 93005; 93306; 93970; 97162; 97530; 99285; J1271; J1447; J1938; J1956; J2543; J2919; J3373; J3374; J7120; Q9957; Q9967

== ENCOUNTER → 2024-11-03 10:40 | Outpatient (BNV) | payer BC, MEDICARE, SELFPAY | PROVIDERS: Emergency Provider Emergency Medicine; PCP Internal Medicine; Visit Provider Radiology Diagnostic Radiology | DX: R41.82 Altered mental status, unspecified (principal); M79.604 Pain in right leg; M79.605 Pain in left leg; R05.9 Cough, unspecified; R50.9 Fever, unspecified; C34.90 Malignant neoplasm of unspecified part of unspecified bronchus or lung; M79.672 Pain in left foot | CPT/HCPCS: 70450; 71045; 73630; 93970 ==

== ENCOUNTER → 2024-11-03 13:19 | Outpatient (BNV) | payer BC, MEDICARE, SELFPAY | PROVIDERS: Admitting Provider Physician Assistant Medical; Emergency Provider Emergency Medicine; PCP Internal Medicine; Visit Provider Internal Medicine Cardiovascular Disease | DX: I49.1 Atrial premature depolarization (principal); I45.4 Nonspecific intraventricular block; R00.0 Tachycardia, unspecified | CPT/HCPCS: 93010 ==

== ENCOUNTER 2024-11-03 13:22 | Outpatient (BNV) | payer BC, MEDICARE, SELFPAY | END 2024-11-07 10:36 | PROVIDERS: Admitting Provider Physician Assistant Medical; Emergency Provider Emergency Medicine; PCP Internal Medicine; Visit Provider Radiology Diagnostic Radiology | DX: R51.9 Headache, unspecified (principal); J18.9 Pneumonia, unspecified organism | CPT/HCPCS: 70450; 71045 ==

== ENCOUNTER 2024-11-03 13:22 | Outpatient (BNV) | payer BC, MEDICARE, SELFPAY | END 2024-11-06 09:03 | PROVIDERS: Admitting Provider Physician Assistant Medical; Emergency Provider Emergency Medicine; PCP Internal Medicine; Visit Provider Internal Medicine Cardiovascular Disease | DX: I49.1 Atrial premature depolarization (principal); I45.10 Unspecified right bundle-branch block; R00.0 Tachycardia, unspecified; I31.39 Other pericardial effusion (noninflammatory) | CPT/HCPCS: 93010; 93306 ==

== ENCOUNTER 2024-11-03 13:22 | Outpatient (BNV) | payer BC, MEDICARE, SELFPAY | END 2024-11-07 09:53 | PROVIDERS: Admitting Provider Physician Assistant Medical; Emergency Provider Emergency Medicine; PCP Internal Medicine; Visit Provider Internal Medicine Cardiovascular Disease | DX: I49.1 Atrial premature depolarization (principal); I45.10 Unspecified right bundle-branch block; R00.0 Tachycardia, unspecified | CPT/HCPCS: 93010 ==

== ENCOUNTER 2024-11-03 13:22 | Outpatient (BNV) | payer BC, MEDICARE, SELFPAY | END 2024-11-08 07:00 | PROVIDERS: Admitting Provider Physician Assistant Medical; Emergency Provider Emergency Medicine; PCP Internal Medicine; Visit Provider Radiology Diagnostic Radiology | DX: J18.9 Pneumonia, unspecified organism (principal) | CPT/HCPCS: 71046 ==

== ENCOUNTER 2024-11-03 13:22 | Outpatient (BNV) | payer BC, MEDICARE, SELFPAY | END 2024-11-06 08:39 | PROVIDERS: Admitting Provider Physician Assistant Medical; Emergency Provider Emergency Medicine; PCP Internal Medicine; Visit Provider Radiology Diagnostic Radiology | DX: M45.4 Ankylosing spondylitis of thoracic region (principal); R06.02 Shortness of breath; J98.4 Other disorders of lung | CPT/HCPCS: 71045; 71275 ==

== ENCOUNTER 2024-11-03 13:22 | Outpatient (BNV) | payer BC, MEDICARE, SELFPAY | END 2024-11-10 07:00 | PROVIDERS: Admitting Provider Physician Assistant Medical; Emergency Provider Emergency Medicine; PCP Internal Medicine; Visit Provider Radiology Diagnostic Radiology | DX: J98.11 Atelectasis (principal) | CPT/HCPCS: 71045 ==

== ENCOUNTER 2024-11-03 13:22 | Outpatient (BNV) | payer BC, MEDICARE, SELFPAY | END 2024-11-04 20:55 | PROVIDERS: Admitting Provider Physician Assistant Medical; Emergency Provider Emergency Medicine; PCP Internal Medicine; Visit Provider Internal Medicine Cardiovascular Disease | DX: I49.1 Atrial premature depolarization (principal); R00.0 Tachycardia, unspecified | CPT/HCPCS: 93010 ==

== ENCOUNTER → 2024-11-03 13:22 | Outpatient (BNV) | payer BC, MEDICARE, SELFPAY | PROVIDERS: Admitting Provider Physician Assistant Medical; Emergency Provider Emergency Medicine; PCP Internal Medicine; Visit Provider Physician Assistant Medical | DX: A41.9 Sepsis, unspecified organism (principal); R65.20 Severe sepsis without septic shock; R50.81 Fever presenting with conditions classified elsewhere; J96.01 Acute respiratory failure with hypoxia; C18.9 Malignant neoplasm of colon, unspecified; C78.7 Secondary malignant neoplasm of liver and intrahepatic bile duct | CPT/HCPCS: 99223; 99232 ==

== ENCOUNTER → 2024-11-03 13:22 | Outpatient (BNV) | payer BC, MEDICARE, SELFPAY | PROVIDERS: Admitting Provider Physician Assistant Medical; Emergency Provider Emergency Medicine; PCP Internal Medicine; Visit Provider Internal Medicine | DX: J18.9 Pneumonia, unspecified organism (principal) | CPT/HCPCS: 99252 ==

== ENCOUNTER → 2024-11-03 13:22 | Outpatient (BNV) | payer BC, MEDICARE, SELFPAY | PROVIDERS: Admitting Provider Physician Assistant Medical; Emergency Provider Emergency Medicine; PCP Internal Medicine; Visit Provider Hospitalist | DX: J96.01 Acute respiratory failure with hypoxia (principal); J18.9 Pneumonia, unspecified organism; J98.4 Other disorders of lung | CPT/HCPCS: 99233 ==

== ENCOUNTER → 2024-11-03 13:22 | Outpatient (BNV) | payer BC, MEDICARE, SELFPAY | PROVIDERS: Admitting Provider Physician Assistant Medical; Emergency Provider Emergency Medicine; PCP Internal Medicine; Visit Provider Internal Medicine Critical Care Medicine | DX: C18.9 Malignant neoplasm of colon, unspecified (principal); C78.7 Secondary malignant neoplasm of liver and intrahepatic bile duct; J18.9 Pneumonia, unspecified organism; I10 Essential (primary) hypertension | CPT/HCPCS: 99253 ==

== ENCOUNTER → 2024-11-03 13:22 | Outpatient (BNV) | payer BC, MEDICARE, SELFPAY | PROVIDERS: Admitting Provider Physician Assistant Medical; Emergency Provider Emergency Medicine; PCP Internal Medicine; Visit Provider Internal Medicine Cardiovascular Disease | DX: R09.02 Hypoxemia (principal); R00.0 Tachycardia, unspecified | CPT/HCPCS: 99253 ==

== ENCOUNTER → 2024-11-03 13:22 | Outpatient (BNV) | payer BC, MEDICARE, SELFPAY | PROVIDERS: Admitting Provider Physician Assistant Medical; Emergency Provider Emergency Medicine; PCP Internal Medicine; Visit Provider Internal Medicine Medical Oncology | DX: C78.7 Secondary malignant neoplasm of liver and intrahepatic bile duct (principal); C19 Malignant neoplasm of rectosigmoid junction; D61.818 Other pancytopenia | CPT/HCPCS: 99252 ==

== ENCOUNTER 2024-12-06 10:18 | Outpatient (AMB) | payer BC, MEDICARE, SELFPAY ==
[2024-12-06 10:45] VITALS: BMI 36.2
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
== END 2024-12-06 11:31 | disposition home or self-care (01) ==
LOC: HO.HPODS 10:19
PROVIDERS: PCP Internal Medicine; Visit Provider Student in an Organized Health Care Education/Training Program
DX: M84.475S Pathological fracture, left foot, sequela (principal); B35.3 Tinea pedis; M72.2 Plantar fascial fibromatosis
CPT/HCPCS: 99204

== ENCOUNTER 2025-01-26 19:07 | Emergency (ER) | payer BC, MEDICARE, SELFPAY ==
[2025-01-26 19:10] VITALS: BP 150/78; PULSE 103; RESP 18; TEMP 36.6; O2SAT 96; BMI 35.7
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
--- OUTSIDE RECORDS SUMMARY | 2025-01-26 19:46 | XMS_ITS | Encounter Summary ---
Author Organization [facility] Address [address] [place] [address] Phone Care Team Providers Care Rattle Leak And Squeak Repairer Name Role Phone Alban Abrams MD Primary Care Provider [phone] Self-Referred, Patient Unavailable Unavailab Jair Rodriguez MD, PhD Unavailable [phone] Jair Gonzalez MD, PhD Unavailable [phone] Raymon Norman MD Unavailable [phone] Shiloh Beck MD Unavailable [phone] Encounter Details Date Type Department Care Team (Late st Contact Info) Description 10/03/2019 Procedure Pass [facility] Imaging [facility], [facility] [place], [place] [address] [place] [address] Social History Tobacco Use Types Packs/Day Years [...] Procedure Pass [facility] Imaging Department, [facility], [place] [address] [place] [address] 10/12/2024 Procedure Pass [facility] Imaging Department, [facility], [place] [address] [place] [address] 03/08/2025 8:50 AM EST Blood Draw Laboratory Services, [facility] [place] [address] [facility] 3rd [place] [address] Jair Gonzalez MD, PhD [address] [place] [id number] [email or web address] 03/08/2025 10:40 AM EST Appointment [facility] Imaging Department, [facility], [place] [address] [place] [address] Jair Gonzalez MD, PhD [address] [place] [email or web address] 03/08/2025 2:00 PM EST Office [facility], [address], 10[address] [place] [address] Jair Gnozalez MD, PhD [address] [place] [id number] [email or web address] documented as of this encounter Visit Diagnoses Not on filedocumented in this encounter Care Teams Rattle Leak And Squeak Repairer Relationship Specialty Start Date End Date Alban Abrams MD [address] [place] [address] [place] [id number] PCP - General Internal Medicine 02/17/17 Self-Referred, Patient Referring Physician 02/17/17 Jair Gonzalez MD, PhD [address] [place] [email or web address] Primary Oncologist Oncology 02/17/17 Jair Gonzalez MD, PhD [address] [place] [email or web address] Primary Oncologist Oncology 02/17/17 Raymno Norman MD [address] [place] [email or web address] Primary Oncologist Surgical Oncology 03/17/17 Shiloh Beck MD [address] [place] [address] [email or web address] 12/30/17 documented as of this encounter Additional Source Comments The information contained in this document represents components of the legal health record. It is not the complete legal health record.[facility]
--- OUTSIDE RECORDS SUMMARY | 2025-01-26 19:46 | XMS_ITS | Encounter Summary ---
Author Organization [facility] Address [address] [place] [address] Phone Care Team Providers Care Tank Welder Name Role Phone Alban Abrams MD Primary Care Provider [phone] Self-Referred, Patient Unavailable Unavailab Jair Rodriguez MD, PhD Unavailable [phone] Jair Gonzalez MD, PhD Unavailable [phone] Raymon Norman MD Unavailable [phone] Shiloh Beck MD Unavailable [phone] Encounter Details Date Type Department Care Team (Late st Contact Info) Description 07/15/2023 Procedure Pass [facility], [facility] [place] [place] [facility], Floor L1 [place] [address] Social History Tobacco Use Types Packs/Day Years [...] st Contact Info) Description 10/12/2024 Procedure Pass [facility] Imaging Department, [facility] [place] [facility], Floor L1 [place] [address] 10/12/2024 Procedure Pass [facility] Imaging Department, [facility] [place] [facility], Floor L1 [place] [address] 03/08/2025 8:50 AM EST Blood Draw Laboratory Services, [facility] [place] 300 [facility] 3rd [place] [address] Jair Gonzalez MD, PhD [address] [place] [phone] [email or web address] 03/08/2025 10:40 AM EST Appointment [facility] Imaging Department, [facility] [place] [facility], Floor L1 [place] [address] Jair Gonzalez MD, PhD [address] [place] [address] [email or web address] 03/08/2025 2:00 PM EST Office Visit [facility], [address], 10th [place] [address] Jair Gonzalez MD, PhD [address] [place] [address] Samm@d [email or web address] documented as of this encounter Visit Diagnoses Not on filedocumented in this encounter Care Teams Tank Welder Relationship Specialty Start Date End Date Alban Abrams MD [address] [place] [address] [address] PCP - General Internal Medicine 02/17/17 Self-Referred, Patient Referring Physician 02/17/17 Jair Gonzalez MD, PhD [address] [place] [phone] [email or web address] Primary Oncologist Oncology 02/17/17 Jair Gonzalez MD, PhD [address] [place] [address] [email or web address] Primary Oncologist Oncology 02/17/17 Raymon Norman MD [address] [place] [address] [email or web address] Primary Oncologist Surgical Oncology 03/17/17 Shiloh Beck MD [address] [place] [address] [email or web address] Hematology and Oncology 12/30/17 documented as of this encounter Additional Source Comments The information contained in this document represents components of the legal health record. It is not the complete legal health record.[facility]
--- OUTSIDE RECORDS SUMMARY | 2025-01-26 19:46 | XMS_ITS | Encounter Summary ---
Author Organization [facility] Address [address] [facility] [address] [place] [address] Phone Care Team Providers Care Plant Controller Name Role Phone Alban Abrams MD Primary Care Provider [phone] Self-Referred, Patient Unavailable Unavailab Jair Rodriguez MD, PhD Unavailable [phone] Jair Gonzalez MD, PhD Unavailable [phone] Raymon Norman MD Unavailable [phone] Shiloh Beck MD Unavailable [phone] Encounter Details Date Type Department Care Team (Late st Contact Info) Description 04/02/2022 Procedure Pass [facility] Imaging [facility], [facility] [place] [facility], Floor L1 [place] [address] Social History Tobacco Use Types Packs/Day Years [...] Info) Description 10/12/2024 Procedure Pass [facility] Imaging Department, [facility] [place] [facility], Floor L1 [place] [address] 10/12/2024 Procedure Pass [facility] Imaging Department, [facility] [place] [facility], Floor L1 [place] [address] 03/08/2025 8:50 AM EST Blood Draw Laboratory Services, [facility] [place] 300 [facility] 3rd [place] [address] Jair Gonzalez MD, PhD [address] [place] [phone] [email or web address] [email or web address] 03/08/2025 10:40 AM EST Appointment [facility] Imaging Department, [facility] [place] [facility], Floor L1 [place] [address] Jair Gonzalez MD, PhD [address] [place] [phone] Samm@d [email or web address] 03/08/2025 2:00 PM EST Office Visit [facility], [address], 10th [place] [address] Jair Gonzalez MD, PhD [address] [place] [phone] Samm@d [email or web address] documented as of this encounter Visit Diagnoses Not on filedocumented in this encounter Care Teams Plant Controller Relationship Specialty Start Date End Date Alban Abrams MD [address] [place] [address] [place] [address] PCP - General Internal Medicine 02/17/17 Self-Referred, Patient Referring Physician 02/17/17 Jair Gonzalez MD, PhD [address] [place] [phone] [email or web address] Primary Oncologist Oncology 02/17/17 Jair Gonzalez MD, PhD [address] [place] [address] Samm@[email or web address] Primary Oncologist Oncology 02/17/17 Raymon Norman MD [address] [place] [address] [email or web address] Primary Oncologist Surgical Oncology 03/17/17 Shiloh Beck MD [address] [place] [phone] Hematology and Oncology 12/30/17 documented as of this encounter Additional Source Comments The information contained in this document represents components of the legal health record. It is not the complete legal health record.[facility]
--- OUTSIDE RECORDS SUMMARY | 2025-01-26 19:46 | XMS_ITS | Encounter Summary ---
Author Organization [facility] Address [address] [place] [address] Phone Care Team Providers Care Goodwill Ambassador Name Role Phone Alban Abrams MD Primary Care Provider [phone] Self-Referred, Patient Unavailable Unavailab Jair Rodriguez MD, PhD Unavailable [phone] Jair Gonzalez MD, PhD Unavailable [phone] Raymon Norman MD Unavailable [phone] Shiloh Beck MD Unavailable Encounter Details Date Type Department Care Team (Late st Contact Info) Description 12/30/2023 Procedure Pass [facility] Imaging [facility], [facility] [place] [facility], Floor L1 [place] [address] Social History Tobacco Use Types Packs/Day Years [...] Procedure Pass [facility] Imaging Department, [facility] [place] [place] [facility], Floor L1 [place] [address] 10/12/2024 Procedure Pass [facility] Imaging Department, [facility] [place] [facility], Floor L1 [place] [address] 03/08/2025 8:50 AM EST Blood Draw Laboratory Services, [facility] [place] [facility] [place] 300 [facility] 3rd [place] [address] Jair Gonzalez MD, PhD 450 [place] [address] Samm@d [email or web address] 03/08/2025 10:40 AM EST Appointment [facility], [facility] [place] [facility], Floor L1 [place] [address] Jair Gonzalez MD, PhD [address] [place] [address] Samm@d [email or web address] 03/08/2025 2:00 PM EST Office Visit [facility], [address], 10th [place] [address] Jair Gonzalez MD, PhD [address] [place] [phone] Samm@d [email or web address] documented as of this encounter Visit Diagnoses Not on filedocumented in this encounter Care Teams Goodwill Ambassador Relationship Specialty Start Date End Date Alban bArams MD [address] [place] [address] [place] [address] PCP - General Internal Medicine 02/17/17 Self-Referred, Patient Referring Physician 02/17/17 Jair Gonzalez MD, PhD [address] [place] [phone] [email or web address] Primary Oncologist Oncology 02/17/17 Jair Gonzalez MD, PhD [address] [place] [phone] Samm@[email or web address] Primary Oncologist Oncology 02/17/17 Raymon Norman MD [address] [place] [address] [email or web address] Primary Oncologist Surgical Oncology 03/17/17 Shiloh Beck MD [address] [place] [address] [email or web address] Hematology and Oncology 12/30/17 documented as of this encounter Additional Source Comments The information contained in this document represents components of the legal health record. It is not the complete legal health record.[facility]
--- OUTSIDE RECORDS SUMMARY | 2025-01-26 19:46 | XMS_ITS | Encounter Summary ---
Author Organization [facility] Address [address] [facility] [address] [place] [address] Phone Care Team Providers Care Inspector Brake Lining Name Role Phone Alban Abrams MD Primary Care Provider [phone] Self-Referred, Patient Unavailable Unavailab Jair Rodriguez MD, PhD Unavailable [phone] Jair Gonzalez MD, PhD Unavailable [phone] Raymon Norman MD Unavailable [phone] Shiloh Beck MD Unavailable [phone] Encounter Details Date Type Department Care Team (Late Contact Info) Description 06/07/2018 Procedure Pass [facility] Endoscopy Department 75 [place] [address] Social History Tobacco Use Types Packs/Day Years [...] Procedure Pass [facility] Imaging Department, [facility] [place] 450 [facility], Floor L1 [place] [address] 10/12/2024 Procedure Pass [facility] Imaging Department, [facility] [place] [facility], Floor L1 [place] [address] 03/08/2025 8:50 AM EST Blood Draw Laboratory Services, [facility] [place] 300 [facility] 3rd [place] [address] Jair Gonzalez MD, PhD [address] [place] [phone] Samm@d [email or web address] 03/08/2025 10:40 AM EST Appointment [facility] Imaging Department, [facility] [place] [facility], Floor L1 [place] [address] Jair Gonzalez MD, PhD [address] [place] [phone] Samm@d [email or web address] 03/08/2025 2:00 PM EST Office Visit [facility], [address], 10th [place] [address] Jair Gonzalez MD, PhD [address] [place] [phone] Samm@d [email or web address] documented as of this encounter Visit Diagnoses Not on filedocumented in this encounter Care Teams Inspector Brake Lining Relationship Specialty Start Date End Date Alban Abrams MD [address] [place] [address] [place] [address] PCP - General Internal Medicine 02/17/17 Self-Referred, Patient Referring Physician 02/17/17 Jair Gonzalez MD, PhD 450 [place] [address] [email or web address] Primary Oncologist Oncology 02/17/17 Jair Gonzalez MD, PhD [address] [place] [phone] Samm@[email or web address] Primary Oncologist Oncology 02/17/17 Raymon Norman MD [address] [place] [address] [email or web address]. u Primary Oncologist Surgical Oncology 03/17/17 Shiloh Beck MD [address] [place] [address] [email or web address] Hematology and Oncology 12/30/17 documented as of this encounter Additional Source Comments The information contained in this document represents components of the legal health record. It is not the complete legal health record.[facility]
--- OUTSIDE RECORDS SUMMARY | 2025-01-26 19:46 | XMS_ITS | Encounter Summary ---
Author Organization [facility] Address [address] [facility] [address] [place] [address] Phone Care Team Providers Care Floor Steward/Stewardess Name Role Phone Alban Abrams MD Primary Care Provider [phone] Self-Referred, Patient Unavailable Unavailab Jair Rodriguez MD, PhD Unavailable [phone] Jair Gonzalez MD, PhD Unavailable [phone] Raymon Norman MD Unavailable [phone] Shiloh Beck MD Unavailable [phone] Encounter Details Date Type Department Care Team (Late st Contact Info) Description 10/15/2017 Procedure Pass [facility] Imaging [facility], [facility] [place] 450 [facility], Floor L1 [place] [address] Social History Tobacco Use Types Packs/Day Years [...] Pass [facility] Imaging Department, [facility] [facility], Floor L1 [place] [address] 10/12/2024 Procedure Pass [facility] Imaging Department, [facility] [address] [facility], Floor L1 [place] [address] 03/08/2025 8:50 AM EST Blood Draw Laboratory Services, [facility] [place] 300 [facility] 3rd [place] [address] Jair Gonzalez MD, PhD [address] [place] [phone] Samm@d [facility] 03/08/2025 10:40 AM EST Appointment [facility] Imaging Department, [facility] 450 [facility], Floor L1 [place] [address] Jair Gonzalez MD, PhD [address] [place] [phone] Samm@d [facility] 03/08/2025 2:00 PM EST Office Visit [facility], [address], 10th [place] [address] Jair Gonzalez MD, PhD [address] [place] [phone] Samm@d [facility] documented as of this encounter Visit Diagnoses Not on filedocumented in this encounter Care Teams Floor Steward/Stewardess Relationship Specialty Start Date End Date Alban Abrams MD [address] [place] [address] [place] [address] PCP - General Internal Medicine 02/17/17 Self-Referred, Patient Referring Physician 02/17/17 Jair Gonzalez MD, PhD [address] [place] [phone] [email or web address] Primary Oncologist Oncology 02/17/17 Jair Gonzalez MD, PhD [address] [place] [address] [email or web address] Primary Oncologist Oncology 02/17/17 Raymon Norman MD [address] [place] [address] [email or web address] Primary Oncologist Surgical Oncology 03/17/17 Shiloh Beck MD 5 [place] [address] [email or web address] Hematology and Oncology 12/30/17 documented as of this encounter Additional Source Comments The information contained in this document represents components of the legal health record. It is not the complete legal health record.[facility]
--- OUTSIDE RECORDS SUMMARY | 2025-01-26 19:46 | XMS_ITS | Encounter Summary ---
Author Organization [facility] Address [address] [place] [address] Phone Care Team Providers Care Oracle Database Consultant Name Role Phone Alban Abrams MD Primary Care Provider [phone] Self-Referred, Patient Unavailable Unavailab Jair Rodriguez MD, PhD Unavailable [phone] Jair Gonzalez MD, PhD Unavailable [phone] Raymon Norman MD Unavailable [phone] Shiloh Beck MD Unavailable [phone] Encounter Details Date Type Department Care Team (Late st Contact Info) Description 10/27/2023 Procedure Pass [facility] 75 [place] [address] Social History Tobacco Use Types Packs/Day Years [...] [facility] Imaging Department, [facility] [place] 450 [facility], Floor L1 [place] [address] 10/12/2024 Procedure Pass [facility] Imaging Department, [facility] [place] 450 [facility], Floor L1 [place] [address] 03/08/2025 8:50 AM EST Blood Draw Laboratory Services, [facility] [place] [facility] [place] [address] [address] Jair Gonzalez MD, PhD 450 [place] [address] Samm@d [facility] 03/08/2025 10:40 AM EST Appointment [facility] Imaging Department, [facility] [place] 450 [facility], Floor L1 [place] [address] Jair Gonzalez MD, PhD [address] [place] [phone] Samm@d [facility] 03/08/2025 2:00 PM EST Office Visit [facility], [facility] 450 [facility], 10th [place] [address] Jair Gonzalez MD, PhD [address] [place] [phone] Samm@d [facility] documented as of this encounter Visit Diagnoses Not on filedocumented in this encounter Care Teams Oracle Database Consultant Relationship Specialty Start Date End Date Alban Abrams MD [address] [place] [address] [place] [address] PCP - General Internal Medicine 02/17/17 Self-Referred, Patient Referring Physician 02/17/17 Jair Gonzalez MD, PhD [address] [place] [phone] [email or web address] Primary Oncologist Oncology 02/17/17 Jair Gonzalez MD, PhD [address] [place] [phone] Samm@[email or web address] Primary Oncologist Oncology 02/17/17 Raymon Norman MD [address] [place] [address] [email or web address]. u Primary Oncologist Surgical Oncology 03/17/17 Shiloh Beck MD [address] [place] [address] [email or web address] Hematology and Oncology 12/30/17 documented as of this encounter Additional Source Comments The information contained in this document represents components of the legal health record. It is not the complete legal health record.[facility]
--- OUTSIDE RECORDS SUMMARY | 2025-01-26 19:46 | XMS_ITS ---
Author Organization [facility] Address [address] [facility] [address] [place] [address] Phone Care Team Providers Care Wood Type Finisher Name Role Phone Alban Abrams MD Primary Care Provider [phone] Self-Referred, Patient Unavailable Unavailab Jair Rodriguez MD, PhD Unavailable [phone] Jair Gonzalez MD, PhD Unavailable [phone] Raymon Norman MD Unavailable [phone] Shiloh Beck MD Unavailable [phone] Active Problems Problem Noted Date Diagnosed [...]
--- OUTSIDE RECORDS SUMMARY | 2025-01-26 19:46 | XMS_ITS | Encounter Summary ---
Author Organization [facility] Address [address] [place] [address] Phone Care Team Providers Care Decorating And Assembly Supervisor Name Role Phone Alban Abrams MD Primary Care Provider [phone] Self-Referred, Patient Unavailable Unavailab Jair Rodriguez MD, PhD Unavailable [phone] Jair Gonzalez MD, PhD Unavailable [phone] Raymon Norman MD Unavailable [phone] Shiloh Beck MD Unavailable [phone] Encounter Details Date Type Department Care Team (Late st Contact Info) Description 08/11/2023 Procedure Pass [facility] 75 [place] [address] Social History Tobacco Use Types Packs/Day Years [...] Contact Info) Description 10/12/2024 Procedure Pass [facility] Imaging Department, [facility] [place] 450 [facility], Floor L1 [place] [address] 10/12/2024 Procedure Pass [facility] Imaging Department, [facility] [place] 450 [facility], Floor L1 [place] [address] 03/08/2025 8:50 AM EST Blood Draw Laboratory Services, [facility] [place] 300 [facility] 3rd [place] [address] Jair Gonzalez MD, PhD [address] [place] [phone] Samm@[facility] 03/08/2025 10:40 AM EST Appointment [facility] Imaging Department, [facility] [place] 450 [facility], [facility] L1 [place] [address] Jair Gonzalez MD, PhD [address] [place] [phone] Samm@[email or web address] 03/08/2025 2:00 PM EST Office Visit [facility], [address], 10th [place] [address] Jair Gonzalez MD, PhD [address] [place] [phone] Samm@d [facility] documented as of this encounter Visit Diagnoses Not on filedocumented in this encounter Care Teams Decorating And Assembly Supervisor Relationship Specialty Start Date End Date Alban Abrams MD [address] [place] [address] [address] PCP - General Internal Medicine 02/17/17 Self-Referred, Patient Referring Physician 02/17/17 Jair Gonzalez MD, PhD [address] [place] [phone] [email or web address] Primary Oncologist Oncology 02/17/17 Jair Gonzalez MD, PhD [address] [place] [phone] Samm@[email or web address] Primary Oncologist Oncology 02/17/17 Raymon Norman MD [address] [place] [address] [email or web address] Primary Oncologist Surgical Oncology 03/17/17 Shiloh Beck MD [address] [place] [address] [email or web address] campus[facility] Hematology and Oncology 12/30/17 documented as of this encounter Additional Source Comments The information contained in this document represents components of the legal health record. It is not the complete legal health record.[facility]
--- OUTSIDE RECORDS SUMMARY | 2025-01-26 19:46 | XMS_ITS | Clinical Summary ---
Author Organization [facility] Address [address] [place] [address] Phone Care Team Providers Care Cyber Engineer Name Role Phone Alban Abrams MD Primary Care Provider [phone] Self-Referred, Patient Unavailable Unavailab Jair Rodriguez MD, PhD Unavailable [phone] Jair Gonzalez MD, PhD Unavailable [phone] Raymon Norman MD Unavailable [phone] Shiloh Beck MD Unavailable Allergies Active Allergy Reactions Criticality Noted Date [...] mouth daily as needed for allergies. Active ti-hfr-mukvl-K1-ly copen-lutein (CENTRUM SILVER ULTRA MEN'S) [id number] mcg Tab Take by mouth. 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 Cancer Maternal Grandfather Relation Status Comments Father Maternal Grandfather Social History Tobacco Use Types Packs/Day Years Used Date Smoking Tobacco: Former Cigarettes 3 10 1 - 1989 Smokeless Tobacco: Never Tobacco Cessation:Counseling Given: [...] Pass [facility], [facility] [place] [address] [facility], Floor [address]1 [place] [address] 10/12/2024 Procedure Pass W[facility] Imaging Department, [facility], [place] [address] [facility], Floor [address]1 [place] [address] 03/08/2025 8:50 AM EST Blood Draw Laboratory Services, [facility] [place] 300 [facility] 3rd [place] [address] Jair Gonzalez MD, PhD [address] [place] [address] Samm@d [facility] 03/08/2025 10:40 AM EST Appointment [facility] Imaging Department, [facility], [place] [address] [facility], Floor [address] [place] [address] Jair Gonzalez MD, PhD [address] [place] [address] [email or web address] [email or web address] 03/08/2025 2:00 PM EST Office Visit [facility], [address], 10th [place] [address] Jair Gonzalez MD, PhD [address] [place] [address] Samm@d [facility] Health Maintenance Due Date Last Done Comments LIPID PANEL 1948 DEPRESSION SCREENING 1960 HEPATITIS C SCREENING 1966 HEPATITIS A VACCINES (1 of 2 - Risk 2-dose series) 12/27/1967 ZOSTER VACCINES (1 of 2) 12/27/1967 PNEUMOCOCCAL VACCINES (50+ years) (2 of 2 - PCV) 12/12/2016 12/13/2015 RSV VACCINE (1 - 1-dose 75+ series) 12/27/2023 INFLUENZA VACCINE (#1) 2024 , 02/11/2023, 01/01/2020, Additional history exists COVID-19 VACCINE (2024- season) 2024 02/14/2021, 06/04/2020, 05/14/2020 CREATININE LEVEL 10/11/2025 10/11/2024, , 01/26/2024, Additional history exists POTASSIUM LEVEL 10/11/2025 10/11/2024, 04/02, 01/26/2024, Additional history exists Adult Td,Tdap Booster 04/10/2027 04/10/2017, 016 SMOKING STATUS SCREENING (Once After 26 Yrs) Completed 08/24/2023 HIB VACCINES Aged Out No longer eligi ble based on patient's age to complete this topic MENINGOCOCCAL VACCINES (ACWY) Aged Out No longer eligible based on patient's age to complete this topic MENINGOCOCCAL VACCINES (B) Aged Out N o longer eligible based on patient's age to complete this topic Medical Devices Implanted Type Area Elementary Educator Device Identifier Shelf Expiration Date Model / Serial / Lot Port Implantable 9.5fr Infusion Dual Lumen Catheter [employer]urethane - [id number] Implanted:Qty: 1 on 06/09/2017 by Ernie Viramontes MD at [facility] STANDARD Right: Chest Wall [employer] [id number] 01/28/2019 [id number] / / [id number] Description:RT IJ Marker Description:liver marker Procedures Procedure Name Priority Date/Time Associated Diagnosis Comments COMPREHENSIVE METABOLIC PANEL (CMP) Routine 10/11/2024 2:25 PM EDT Malignant neoplasm of colon, unspecified part of colon from Last 3 Months or Most Recently Relevant to Health Maintenance Results * (ABNORMAL) Comprehensive metabolic panel (10/11/2024 2:25 PM EDT) SODIUM 139 136 - 145 mmol/L [facility] LIC# [id number] POTASSIUM 4.2 3.4 - 5.1 mmol/L [facility] LIC# [id number] CHLORIDE 103 98 - 107 mmol/L [facility]# [id number] CO2 20(L) 22 - 31 mmol/L [facility]# [id number] BUN 27(H) 6 - 23 mg/dL [facility]# [id number] CREATININE 1.12 0.50 - 1.20 mg/dL [facility]# [id number] GLUCOSE 180(H) 70 - 100 mg/dL [facility]# [id number] ALBUMIN 3.4(L) 3.5 - 5.2 g/dL [facility]# [id number] TOTAL PROTEIN 6.0(L) 6.4 - 8.3 g/dL [facility]# [id number] CALCIUM 9.0 8.8 - 10.7 mg/dL [facility]# [id number] ALKALINE PHOSPHATASE 110 40 - 129 U/L [facility]# [id number] TOTAL BILIRUBIN 0.7 0.2 - 1.2 mg/dL [facility]# [id number] AST 33 <41 U/L [facility]# [id number] ALT 42(H) <42 U/L [facility]# [id number] GLOBULIN 2.6 2.3 - 4.2 g/dL [facility]# [id number] EGFR 69 >59 mL/min/1.7 3m2 [facility]# [id number] Comment:Estimated glomerular filtration rate calculated using the CKD-EPI refit equation. ANION GAP 16 7 - 17 mmol/L [facility]# [id number] Blood 10/11/2024 2:25 PM EDT 10/11/2024 2:26 PM EDT us Jair Gonzalez MD, PhD LAB BLOOD BKR ORDERABLE S Final Result [facility]# [id number] [address] [place] [address] from Last 3 Months or Most Recently Relevant to Health Maintenance Insurance MEDICARE PART A & B [facility] PPO MEDICARE PART A & B [place] [place] OUT OF STATE PPO MEDICARE PART A & B [facility] PPO MEDICARE PART A & B MEDICARE PART A & B MEDICARE PART A & B [facility] OUT OF STATE PPO MEDICARE PART A & B [facility] PPO MEDICARE PART A & B MEDICARE PART A & B PPO Advance Directives For more information, please contact: [phone] (9AM - 5PM [facility], Wednesday-Wednesday) Documents on File Type Date Recorded Patient Fitter/Welder Expl rosi Healthcare Proxy 01/25/2024 * Full Code (Latest [...] Code Status Confirmed With: Patient Care Teams Cyber Engineer Relationship Specialty Start Date End Date Alban Abrams MD [address] [place] [address] PCP - General Internal Medicine 02/17/17 Self-Referred, Patient Referring Physician 02/17/17 Jair Gonzalez MD, PhD [address] [place] [phone] [email or web address] Primary Oncologist Oncology 02/17/17 Jair Gonzalez MD, PhD [address] [place] [address] [email or web address] Primary Oncologist Oncology 02/17/17 Raymon Norman MD [address] [place] [address] [email or web address] Primary Oncologist Surgical Oncology 03/17/17 Shiloh Beck MD [address] [place] [address] [email or web address] Hematology and Oncology 12/30/17 Additional Source Comments The information contained in this document represents components of the legal health record. It is not the complete legal health record.[facility]
--- OUTSIDE RECORDS SUMMARY | 2025-01-26 19:46 | XMS_ITS | Encounter Summary ---
Author Organization [facility] Address [address] [place] [address] Phone Care Team Providers Care Display Specialist Name Role Phone Alban Abrams MD Primary Care Provider [phone] Self-Referred, Patient Unavailable Unavailab Jair Rodriguez MD, PhD Unavailable [phone] Jair Gonzalez MD, PhD Unavailable [phone] Raymon Norman MD Unavailable [phone] Shiloh Beck MD Unavailable [phone] Encounter Details Date Type Department Care Team (Late st Contact Info) Description 10/09/2024 Procedure Pass [facility] [place] [address] [facility] 3rd [place] [address] Social History Tobacco Use Types Packs/Day Years [...] Pass [facility]anda [facility] Imaging Department, [facility] [place] [address], [address] [place] [address] 10/12/2024 Procedure Pass [facility] Imaging Department, [facility] [place] [address], [address] [place] [address] 03/08/2025 8:50 AM EST Blood Draw Laboratory Services, [facility] [place] [address] [facility] 3rd [place] [address] Jair Gonzalez MD, PhD [address] [place] [address] [email or web address] 03/08/2025 10:40 AM EST Appointment Wanda [facility] Imaging Department, [facility] [place] [place] [address], [address] [place] [address] Jair Gonzalez MD, PhD [address] [place] [address] [email or web address] [email or web address] 03/08/2025 2:00 PM EST Office Visit [facility], [address], 10th [place] [address] Jair Gonzalez MD, PhD [address] [place] [address] [email or web address]@d [email or web address] documented as of this encounter Visit Diagnoses Not on filedocumented in this encounter Care Teams Display Specialist Relationship Specialty Start Date End Date Alban Abrams MD [address] [place] [address] [place] [address] PCP - General Internal Medicine 02/17/17 Self-Referred, Patient Referring Physician 02/17/17 Jair Gonzalez MD, PhD [address] [place] [phone] [email or web address] Primary Oncologist Oncology 02/17/17 Jair Gonzalez MD, PhD [address] [place] [address] [email or web address]. [facility] Primary Oncologist Oncology 02/17/17 Raymon [place] MD [address] [place] [address] [email or web address] Primary Oncologist Surgical Oncology 03/17/17 Shiloh Beck MD [address] [place] [address] [email or web address] [facility] On[facility] 12/30/17 documented as of this encounter Additional Source Comments The information contained in this document represents components of the legal health record. It is not the complete legal health record.[facility]
--- OUTSIDE RECORDS SUMMARY | 2025-01-26 19:46 | XMS_ITS | Encounter Summary ---
Author Organization [facility] Address [address] [place] [address] Phone Care Team Providers Care Director Of Industrial Relations Name Role Phone Alban Abrams MD Primary Care Provider [phone] Self-Referred, Patient Unavailable Unavailab Jair Rodriguez MD, PhD Unavailable [phone] Jair Gonzalez MD, PhD Unavailable [phone] Raymon Norman MD Unavailable [phone] Shiloh Beck MD Unavailable [phone] Encounter Details Date Type Department Care Team (Late st Contact Info) Description 04/02/2022 Procedure Pass [facility] Imaging Department, [facility] [place] [address] [facility], Floor [address] [place] [address] Social History Tobacco Use Types Packs/Day Years [...] st Contact Info) Description 10/12/2024 Procedure Pass [facility] Imaging Department, [facility] [place] [address] [facility], Floor [address] [place] [address] 10/12/2024 Procedure Pass [facility] Imaging Department, [facility] [place] [address] [facility], [address] [place] [address] 03/08/2025 8:50 AM EST Blood Draw Laboratory Services, [facility] [place] 300 [facility] 3rd [place] [address] Jair Gonzalez MD, PhD [address] [place] [address] [email or web address] [email or web address] 03/08/2025 10:40 AM EST Appointment [facility] Imaging Department, [facility], [place] [address] [facility], Floor [address] [place] [address] Jair Gonzalez MD, PhD [address] [place] [phone] [email or web address] [email or web address] 03/08/2025 2:00 PM EST Office Visit [facility], [address], 10th [place] [address] Jair Gonzalez MD, PhD [address] [place] [address] [email or web address] [email or web address] documented as of this encounter Visit Diagnoses Not on filedocumented in this encounter Care Teams Director Of Industrial Relations Relationship Specialty Start Date End Date Alban Abrams MD [address] [place] [address] [place] [address] PCP - General Internal Medicine 02/17/17 Self-Referred, Patient Referring Physician 02/17/17 Jair Gonzalez MD, PhD [address] [place] [phone] [email or web address] Primary Oncologist Oncology 02/17/17 Jair Gonzalez MD, PhD [address] [place] [phone] [email or web address] Primary Oncologist Oncology 02/17/17 Raymon [place] MD [address] [place] [address] [email or web address] Primary Oncologist Surgical Oncology 03/17/17 Shiloh Beck MD [address] [place] [phone] [email or web address] Hematology and Oncology 12/30/17 documented as of this encounter Additional Source Comments The information contained in this document represents components of the legal health record. It is not the complete legal health record.[facility]
--- OUTSIDE RECORDS SUMMARY | 2025-01-26 19:46 | XMS_ITS | Encounter Summary ---
Author Organization [facility] Address [address] [place] [address] Phone Care Team Providers Care Stapler Machine Name Role Phone Alban Abrams MD Primary Care Provider [phone] Self-Referred, Patient Unavailable Unavailab Jair Rodriguez MD, PhD Unavailable [phone] Jair Gonzalez MD, PhD Unavailable [phone] Raymon Norman MD Unavailable [phone] Shiloh Beck MD Unavailable [phone] Encounter Details Date Type Department Care Team (Late st Contact Info) Description 01/05/2024 Procedure [facility] 75 [place] [address] Social History Tobacco Use Types Packs/Day Years [...] st Contact Info) Description 10/12/2024 Procedure Pass [facility] Imaging Department, [facility] [place] [address] [facility], Floor L1 [place] [address] 10/12/2024 Procedure Pass [facility] Imaging Department, [facility], [place] [address] [facility], Floor L1 [place] [address] 03/08/2025 8:50 AM EST Blood Draw Laboratory Services, [facility] [place] [facility] [place] [address] [address] Jair Gonzalez MD, PhD 450 [place] [address] [email or web address]@d [email or web address] 03/08/2025 10:40 AM EST Appointment [facility] Imaging Department, [facility], [place] [address] [facility], Floor L1 [place] [address] Jair Gonzalez MD, PhD [address] [place] [phone] [email or web address]@d [email or web address] 03/08/2025 2:00 PM EST Office Visit [facility], [facility] 450 [facility], 10th [place] [address] Jair Gonzalez MD, PhD [address] [place] [address] [email or web address]@[email or web address] documented as of this encounter Visit Diagnoses Not on filedocumented in this encounter Care Teams Stapler Machine Relationship Specialty Start Date End Date Alban Abrams MD [address] [place] [address] [place] [address] PCP - General Internal Medicine 02/17/17 Self-Referred, Patient Referring Physician 02/17/17 Jair Gonzalez MD, PhD [address] [place] [phone] [email or web address] Primary Oncologist Oncology 02/17/17 Jair Gonzalez MD, PhD [address] [place] [address] [email or web address] Primary Oncologist Oncology 02/17/17 Raymon Norman MD [address] [place] [address] [email or web address] Primary Oncologist Surgical Oncology 03/17/17 Shiloh Beck MD [address] [place] [address] [email or web address] Hematology and Oncology 12/30/17 documented as of this encounter Additional Source Comments The information contained in this document represents components of the legal health record. It is not the complete legal health record.[facility]
--- OUTSIDE RECORDS SUMMARY | 2025-01-26 19:46 | XMS_ITS | Encounter Summary ---
Author Organization [facility] Address [address] [place] [address] Phone Care Team Providers Care Mobile Home Set Up Person Name Role Phone Alban Abrams MD Primary Care Provider Self-Referred, Patient Unavailable Unavailab Jair Rodriguez MD, PhD Unavailable [phone] Jair Gonzalez MD, PhD Unavailable [phone] Raymon Norman MD Unavailable [phone] Shiloh Beck MD Unavailable [phone] Encounter Details Date Type Department Care Team (Late st Contact Info) Description 09/23/2023 Procedure Pass [facility] Imaging Department, [facility] [place] [place] [address] [facility], Floor L1 [place] [address] Social History Tobacco Use Types Packs/Day Years [...] st Contact Info) Description 10/12/2024 Procedure Pass [facility] Imaging Department, [facility] [place] [address] [facility], Floor L1 [place] [address] 10/12/2024 Procedure Pass [facility] Imaging Department, [facility] [place] [address] [facility], Floor [address]1 [place] [address] 03/08/2025 8:50 AM EST Blood Draw Laboratory Services, [facility] [place] 300 [facility] 3rd [place] [address] Jair Gonzalez MD, PhD [address] [place] [address] [email or web address] 03/08/2025 10:40 AM EST Appointment [facility] Imaging Department, [facility], [place] [address] [facility], Floor [address]1 [place] [address] Jair Gonzalez MD, PhD [address] [place] [address] [email or web address] 03/08/2025 2:00 PM EST Office Visit [facility], [address], 10th [place] [address] Jair Gonzalez MD, PhD [address] [place] [phone] [email or web address] documented as of this encounter Visit Diagnoses Not on filedocumented in this encounter Care Teams Mobile Home Set Up Person Relationship Specialty Start Date End Date Alban Abrams MD [address] [place] [address] [address] PCP - General Internal Medicine 02/17/17 Self-Referred, Patient Referring Physician 02/17/17 Jair Gonzalez MD, PhD [address] [place] [phone] [email or web address] Primary Oncologist Oncology 02/17/17 Jair Gonzalez MD, PhD [address] [place] [address] [email or web address] Primary Oncologist Oncology 02/17/17 Raymon Norman MD [address] [place] [address] [email or web address] Primary Oncologist Surgical Oncology 03/17/17 Shiloh Beck MD [address] [place] [phone] [email or web address] Hematology and Oncology 12/30/17 documented as of this encounter Additional Source Comments The information contained in this document represents components of the legal health record. It is not the complete legal health record.[facility]
--- OUTSIDE RECORDS SUMMARY | 2025-01-26 19:46 | XMS_ITS | Clinical Summary ---
Author Organization [facility] Address [address] [place] [address] Care Team Providers Care Food Prep Worker Name Role Phone Pcp, No Primary Care [...] 1950 DTaP/Tdap/Td Vaccines (1 - Tdap) 12/27/1967 Pneumococcal Vaccines 50+ (1 of 1 - PCV) 1998 Zoster (Shingles) Vaccine (1 of 2) 1998 RSV Vaccine 50 years and old er and Patients (1 - 1-dose 75+ series) 12/27/2023 Influenza Vaccine 09/29/2024 COVID-19 Vaccine (2023-2 5 season) 2024 Hepatitis B Vaccines Aged Out No long er eligible based on patient's age to complete this topic Insurance MEDICARE PART A & B [facility] Care Teams Food Prep Worker Relationship Specialty Start Date End Date Pcp, No PCP - General General Medicine 11/23/22
--- OUTSIDE RECORDS SUMMARY | 2025-01-26 19:46 | XMS_ITS | Encounter Summary ---
Author Organization [facility] Address [address] [place] [address] Phone Care Team Providers Care Telephone Sales Agent Name Role Phone Alban Abrams MD Primary Care Provider [phone] Self-Referred, Patient Unavailable Unavailab Jair Rodriguez MD, PhD Unavailable [phone] Jair Gonzalez MD, PhD Unavailable [phone] Raymon Norman MD Unavailable Shiloh Beck MD Unavailable [phone] Encounter Details Date Type Department Care Team (Late st Contact Info) Description 10/09/2024 Procedure Pass [facility] [place] 300 [facility] 3rd [place] [address] Social History Tobacco Use Types Packs/Day Years [...] Pass [facility] Imaging Department, [facility] [place] [place] [address] [facility], Floor [address]1 [place] [address] 10/12/2024 Procedure Pass Wanda [facility] Imaging Department, [facility] [place] [address] [facility], Floor [address]1 [place] [address] 03/08/2025 8:50 AM EST Blood Draw Laboratory Services, [facility] [place] 300 [facility] 3rd [place] [address] Jair Gonzalez MD, PhD [address] [place] [phone] Samm@d [email or web address] 03/08/2025 10:40 AM EST Appointment Wanda [facility] Imaging Department, [facility], [place] [address] [facility], Floor [address]1 [place] [address] Jair Gonzalez MD, PhD [address] [place] [address] [email or web address]@d [email or web address] 03/08/2025 2:00 PM EST Office Visit [facility], [address], 10th [place] [address] Jair Gonzalez MD, PhD [address] [place] [address] Samm@d [facility] documented as of this encounter Visit Diagnoses Not on filedocumented in this encounter Care Teams Telephone Sales Agent Relationship Specialty Start Date End Date Alban Abrams MD [address] [place] [address] [place] [address] PCP - General Internal Medicine 02/17/17 Self-Referred, Patient Referring Physician 02/17/17 Jair Gonzalez MD, PhD [address] [place] [phone] [email or web address] Primary Oncologist Oncology 02/17/17 Jair Gonzalez MD, PhD [address] [place] [address] [email or web address]. [facility] Primary Oncologist Oncology 02/17/17 Raymon Norman MD [address] [place] [address] [email or web address] Primary Oncologist Surgical Oncology 03/17/17 Shiloh Beck MD [address] [place] [address] [email or web address] Hematology and Oncology 12/30/17 documented as of this encounter Additional Source Comments The information contained in this document represents components of the legal health record. It is not the complete legal health record.[facility]
--- OUTSIDE RECORDS SUMMARY | 2025-01-26 19:46 | XMS_ITS | Encounter Summary ---
Author Organization [facility] Address [address] [place] [address] Phone Care Team Providers Care Release Manager Name Role Phone Alban Abrams MD Primary Care Provider [phone] Self-Referred, Patient Unavailable Unavailab Jair Rodriguez MD, PhD Unavailable [phone] Jair Gonzalez MD, PhD Unavailable [phone] Raymno Norman MD Unavailable [phone] Shiloh Beck MD Unavailable [phone] Encounter Details Date Type Department Care Team (Late st Contact Info) Description 09/23/2023 Procedure Pass [facility] [place] [place] [address] [facility], Floor L1 [place] [address] Social History Tobacco Use Types Packs/Day Years [...] Info) Description 10/12/2024 Procedure Pass [facility] Imaging Department, [facility], [place] [address] [facility], Floor L1 [place] [address] 10/12/2024 Procedure Pass [facility] Imaging Department, [facility] [place] [address] [facility], Floor L1 [place] [address] 03/08/2025 8:50 AM EST Blood Draw Laboratory Services, [facility] [place] 300 [facility] 3rd [place] [address] Jair Gonzalez MD, PhD [address] [place] [phone] [email or web address] 03/08/2025 10:40 AM EST Appointment [facility] Imaging Department, [facility], [place] [address] [facility], Floor L1 [place] [address] Jair Gonzalez MD, PhD [address] [place] [phone] [email or web address] 03/08/2025 2:00 PM EST Office Visit [facility], [address], 10th [place] [address] Jair Gonzalez MD, PhD [address] [place] [address] [email or web address]@d [email or web address] documented as of this encounter Visit Diagnoses Not on filedocumented in this encounter Care Teams Release Manager Relationship Specialty Start Date End Date Alban Abrams MD [address] [place] [address] [address] PCP - General Internal Medicine 02/17/17 Self-Referred, Patient Referring Physician 02/17/17 Jair Gonzalez MD, PhD [address] [place] [address] [email or web address] Primary Oncologist Oncology 02/17/17 Jair Gonzalez MD, PhD [address] [place] [address] Samm@[email or web address] Primary Oncologist Oncology 02/17/17 Raymon Normna MD [address] [place] [address] [email or web address] Primary Oncologist Surgical Oncology 03/17/17 Shiloh Beck MD [address] [place] [address] [email or web address] Hematology and Oncology 12/30/17 documented as of this encounter Additional Source Comments The information contained in this document represents components of the legal health record. It is not the complete legal health record.[facility]
--- OUTSIDE RECORDS SUMMARY | 2025-01-26 19:46 | XMS_ITS | Encounter Summary ---
Author Organization [facility] Address [address] [place] [address] Phone Care Team Providers Care Double Surface Operator Name Role Phone Alban Abrams MD Primary Care Provider [phone] Self-Referred, Patient Unavailable Unavailab Jair Rodriguez MD, PhD Unavailable [phone] Jair Gonzalez MD, PhD Unavailable [phone] Raymon Norman MD Unavailable [phone] Shiloh Beck MD Unavailable [phone] Encounter Details Date Type Department Care Team (Late st Contact Info) Description 09/29/[address] [facility] 75 [place] [address] Social History Tobacco Use Types Packs/Day Years [...] Procedure Pass [facility], [facility], [place] [address] [facility], Floor L1 [place] [address] 10/12/2024 Procedure Pass [facility] Imaging Department, [facility], [place] [address] [facility], Floor L1 [place] [address] 03/08/2025 8:50 AM EST Blood Draw Laboratory Services, [facility] [place] 300 [facility] 3rd [place] [address] Jair Gonzalez MD, PhD [address] [place] [address] [email or web address] 03/08/2025 10:40 AM EST Appointment [facility] Imaging Department, [facility], [place] [address] [facility], [facility] L1 [place] [address] Jair Gonzalez MD, PhD [address] [place] [phone] [email or web address] 03/08/2025 2:00 PM EST Office Visit [facility], [address], 10th [place] [address] Jair Gonzalez MD, PhD [address] [place] [address] Samm@[email or web address] documented as of this encounter Visit Diagnoses Not on filedocumented in this encounter Care Teams Double Surface Operator Relationship Specialty Start Date End Date Alban Abrams MD [address] [place] [address] [address] PCP - General Internal Medicine 02/17/17 Self-Referred, Patient Referring Physician 02/17/17 Jair Gonzalez MD, PhD [address] [place] [address] [email or web address] Primary Oncologist Oncology 02/17/17 Jair Gonzalez MD, PhD [address] [place] [address] [email or web address] Primary Oncologist Oncology 02/17/17 Raymon Norman MD [address] [place] [address] [email or web address] Primary Oncologist Surgical Oncology 03/17/17 Shiloh Beck MD [address] [place] [address] [email or web address] Hematology and Oncology 12/30/17 documented as of this encounter Additional Source Comments The information contained in this document represents components of the legal health record. It is not the complete legal health record.[facility]
--- OUTSIDE RECORDS SUMMARY | 2025-01-26 19:46 | XMS_ITS | Encounter Summary ---
Author Organization [facility] Address [address] [facility] [address] [place] [address] Phone Care Team Providers Care Systems Analysis Manager Name Role Phone Alban Abrams MD Primary Care Provider [phone] Self-Referred, Patient Unavailable Unavailab Jair Rodriguez MD, PhD Unavailable [phone] Jair Gonzalez MD, PhD Unavailable [phone] Raymon Norman MD Unavailable [phone] Shiloh Beck MD Unavailable [phone] Encounter Details Date Type Department Care Team (Late st Contact Info) Description 11/16/2023 Procedure Pass [facility] Periop 75 [place] [address] Social History Tobacco Use Types Packs/Day Years [...] 8:13 PM EDT Kellie Mchugh RN * [place] Suicide Severity Rating Scale (Screener/Recent Self-Report) Question [...] 10/12/2024 Procedure Pass [facility] Imaging [facility], [facility] [place] [address] [facility], Floor L1 [place] [address] 10/12/2024 Procedure Pass [facility] Imaging Department, [facility] [place] [address] [facility], Floor L1 [place] [address] 03/08/2025 8:50 AM EST Blood Draw Laboratory Services, [facility] 300 [facility] 3rd [place] [address] Jair Gonzalez MD, PhD [address] [place] [address] [email or web address] 03/08/2025 10:40 AM EST Appointment [facility] Imaging Department, [facility] [place] [address] [facility], Floor L1 [place] [address] Jair Gonzalez MD, PhD [address] [place] [address] [email or web address] 03/08/2025 2:00 PM EST Office Visit [facility], [address], 10th [place] [address] Jair Gonzalez MD, PhD [address] [place] [phone] [email or web address] documented as of this encounter Visit Diagnoses Not on filedocumented in this encounter Care Teams Systems Analysis Manager Relationship Specialty Start Date End Date Alban Abrams MD [address] [place] [address] [place] [address] PCP - General Internal Medicine 02/17/17 Self-Referred, Patient Referring Physician 02/17/17 Jair Gonzalez MD, PhD [address] [place] [address] [email or web address] Primary Oncologist Oncology 02/17/17 Jair Gonzalez MD, PhD [address] [place] [address] [email or web address] Primary Oncologist Oncology 02/17/17 Raymon Norman MD [address] [place] [address] [email or web address] Primary Oncologist Surgical Oncology 03/17/17 Shiloh Beck MD [address] [place] [address] [email or web address] Hematology and Oncology 12/30/17 documented as of this encounter Additional Source Comments The information contained in this document represents components of the legal health record. It is not the complete legal health record.[facility]
--- OUTSIDE RECORDS SUMMARY | 2025-01-26 19:46 | XMS_ITS | Encounter Summary ---
Author Organization [facility] Address [address] [facility] [address] [place] [address] Phone Care Team Providers Care Remelt Operator Name Role Phone Alban Abrams MD Primary Care Provider [phone] Self-Referred, Patient Unavailable Unavailab Jair Rodriguez MD, PhD Unavailable [phone] Jair Gonzalez MD, PhD Unavailable [phone] Raymon Norman MD Unavailable [phone] Shiloh Beck MD Unavailable [phone] Encounter Details Date Type Department Care Team (Late st Contact Info) Description 01/25/2024 Procedure Pass [facility] Periop 75 [place] [address] Social History Tobacco Use Types Packs/Day Years [...] Contact Info) Description 10/12/2024 Procedure Pass [facility] Imaging Department, [facility] [place] [address] [facility], Floor [address]1 [place] [address] 10/12/2024 Procedure Pass [facility] Imaging Department, [facility] [place] [address] [facility], Floor [address]1 [place] [address] 03/08/2025 8:50 AM EST Blood Draw Laboratory Services, [facility] [place] 300 [facility] 3rd [place] [address] Jair Gonzalez MD, PhD [address] [place] [phone] [email or web address] 03/08/2025 10:40 AM EST Appointment [facility] Imaging Department, [facility] [address] [facility], Floor [address]1 [place] [address] Jair Gonzalez MD, PhD [address] [place] [address] Samm@[email or web address] 03/08/2025 2:00 PM EST Office Visit [facility], [address], 10th [place] [address] Jair Gonzalez MD, PhD [address] [place] [phone] [email or web address]@[email or web address] documented as of this encounter Visit Diagnoses Not on filedocumented in this encounter Care Teams Remelt Operator Relationship Specialty Start Date End Date Alban Abrams MD [address] [place] [address] [place] [address] PCP - General Internal Medicine 02/17/17 Self-Referred, Patient Referring Physician 02/17/17 Jair Gonzalez MD, PhD [address] [place] [address] Samm@[email or web address] Primary Oncologist Oncology 02/17/17 Jair Gonzalez MD, PhD [address] [place] [address] Samm@[email or web address] Primary Oncologist Oncology 02/17/17 Raymon Norman MD [address] [place] [address] [email or web address] Primary Oncologist Surgical Oncology 03/17/17 Shiloh Beck MD [address] [place] [phone] [facility] On[facility] 12/30/17 documented as of this encounter Additional Source Comments The information contained in this document represents components of the legal health record. It is not the complete legal health record.[facility]
--- OUTSIDE RECORDS SUMMARY | 2025-01-26 19:46 | XMS_ITS | Encounter Summary ---
Author Organization [facility] Address [address] [facility] [address] [place] [address] Phone Care Team Providers Care Potato Chip Sacking Machine Operator Name Role Phone Alban Abrams MD Primary Care Provider [phone] Self-Referred, Patient Unavailable Unavailab Jair Rodriguez MD, PhD Unavailable [phone] Jair Gonzalez MD, PhD Unavailable [phone] Raymon Norman MD Unavailable [phone] Shiloh Beck MD Unavailable [phone] Encounter Details Date Type Department Care Team (Late Contact Info) Description 01/10/2019 Procedure Pass [facility] Endoscopy Department 75 [place] [address] Social History Tobacco Use Types Packs/Day Years [...] [facility] Imaging Department, [facility] [place] [address] [facility], Floor L1 [place] [address] 10/12/2024 Procedure Pass [facility] Imaging Department, [facility] [place] [address] [facility], Floor L1 [place] [address] 03/08/2025 8:50 AM EST Blood Draw Laboratory Services, [facility] [place] 300 [facility] 3rd [place] [address] Jair Gonzalez MD, PhD [address] [place] [phone] Samm@d [email or web address] 03/08/2025 10:40 AM EST Appointment [facility] Imaging Department, [facility] [place] [address] [facility], Floor L1 [place] [address] Jair Gonzalez MD, PhD [address] [place] [address] Samm@d [email or web address] 03/08/2025 2:00 PM EST Office Visit [facility], [address], 10th [place] [address] Jair Gonzalez MD, PhD [address] [place] [phone] [email or web address] [email or web address] documented as of this encounter Visit Diagnoses Not on filedocumented in this encounter Care Teams Potato Chip Sacking Machine Operator Relationship Specialty Start Date End Date Alban Abrams MD [address] [place] [address] [place] [address] PCP - General Internal Medicine 02/17/17 Self-Referred, Patient Referring Physician 02/17/17 Jair Gonzalez MD, PhD 450 [place] [address] [email or web address] Primary Oncologist Oncology 02/17/17 Jair Gonzalez MD, PhD [address] [place] [phone] Samm@[email or web address] Primary Oncologist Oncology 02/17/17 Raymon Norman MD [address] [place] [address] [email or web address] Primary Oncologist Surgical Oncology 03/17/17 Shiloh Beck MD [address] [place] [phone] [email or web address] Hematology and Oncology 12/30/17 documented as of this encounter Additional Source Comments The information contained in this document represents components of the legal health record. It is not the complete legal health record.[facility]
--- OUTSIDE RECORDS SUMMARY | 2025-01-26 19:46 | XMS_ITS | Encounter Summary ---
Author Organization [facility] Address [address] [employer] [facility] [address] [place] [address] Phone Care Team Providers Care Venture Capitalist Name Role Phone Alban Abrams MD Primary Care Provider [phone] Self-Referred, Patient Unavailable Unavailab Jair Rodriguez MD, PhD Unavailable [phone] Jair Gonzalez MD, PhD Unavailable [phone] Raymon Norman MD Unavailable [phone] Shiloh Beck MD Unavailable [phone] Encounter Details Date Type Department Care Team (Late st Contact Info) Description 10/23/2021 Procedure Pass [facility] Imaging Department, [facility] [place], [place] [address] [facility], Floor L1 [place] [address] Social History Tobacco Use Types Packs/Day Years [...] [facility], [facility], [place] [address] [facility], Floor L1 [place] [address] 10/12/2024 Procedure Pass [facility], [facility], [place] [address] [facility], Floor [address]1 [place] [address] 03/08/2025 8:50 AM EST Blood Draw Laboratory Services, [facility] 300 [facility] 3rd [place] [address] Jair Gonzalez MD, PhD [address] [place] [phone] [email or web address] [email or web address] 03/08/2025 10:40 AM EST Appointment [facility] Imaging [facility], [facility], [place] [address] [facility], Floor [address]1 [place] [address] Jair Gonzalez MD, PhD [address] [place] [phone] Samm@d [email or web address] 03/08/2025 2:00 PM EST Office Visit [facility], [address], 10th [place] [address] Jair Gonzalez MD, PhD [address] [place] [phone] Samm@d [email or web address] documented as of this encounter Visit Diagnoses Not on filedocumented in this encounter Care Teams Venture Capitalist Relationship Specialty Start Date End Date Alban Abrams MD [address] [place] [address] [place] [address] PCP - General Internal Medicine 02/17/17 Self-Referred, Patient Referring Physician 02/17/17 Jair Gonzalez MD, PhD [address] [place] [phone] [email or web address] Primary Oncologist Oncology 02/17/17 Jair Gonzalez MD, PhD [address] [place] [phone] [email or web address] Primary Oncologist Oncology 02/17/17 Raymon Norman MD [address] [place] [address] [email or web address] Primary Oncologist Surgical Oncology 03/17/17 Shiloh Beck MD [address] [place] [address] [email or web address] Hematology and Oncology 12/30/17 documented as of this encounter Additional Source Comments The information contained in this document represents components of the legal health record. It is not the complete legal health record.[facility]
--- OUTSIDE RECORDS SUMMARY | 2025-01-26 19:46 | XMS_ITS | Encounter Summary ---
Author Organization [facility] Address [address] [facility] [address] [place] [address] Phone Care Team Providers Care Power Machine Operator Name Role Phone Alban Abrams MD Primary Care Provider [phone] Self-Referred, Patient Unavailable Unavailab Jair Rodriguez MD, PhD Unavailable [phone] Jair Gonzalez MD, PhD Unavailable [phone] Raymon Norman MD Unavailable [phone] Shiloh Beck MD Unavailable [phone] Reason for Referral * MRI/CAT Scan - Closed Specialty Diagnoses / Procedures Referred By Alessandra t Referred To Contact Radiology Diagnoses Liver lesion Procedures CT Abdomen/Pelvis CT Abdomen Only (No Pelvis) CHG CT SCAN OF ABDOMEN COMBO CHG CT SCAN,ABDOMENT AND PELVIS,W CONTRAST Nikos Mendez MD Phone: tel: fax: mailto:[email or web address] Referral ID Status Reason Start Date Expiration Date Visits Re quested Visits Authorized [id number] Closed 08/30/2023 02/26/2024 1 1 Encounter Details Date Type Department Care Team (Late st Contact Info) Description 08/30/2023 Ancillary Orders [facility] Radiology [facility] [address] [facility], 3rd Floor, [place] [address] Nikos Mendez MD 75 [place] [address] [email or web address]. COUNTS INCLUDE 234 [facility]EDS AT THE [facility] Liver lesion (Primary Dx) Social History [...] 10/12/2024 Procedure Pass [facility] Imaging Department, [facility] [place] [place] [address] [facility], Floor L1 [place] [address] 10/12/2024 Procedure Pass [facility] Imaging Department, [facility] [place] [place] [address] [facility], Floor L1 [place] [address] 03/08/2025 8:50 AM EST Blood Draw Laboratory Services, [facility] [place] [facility] [place] 300 [facility] 3rd [place] [address] Jair Gonzalez MD, PhD [address] [place] [address] Samm@[email or web address] 03/08/2025 10:40 AM EST Appointment [facility] Imaging Department, [facility] [place] [address] [facility], Floor L1 [place] [address] Jair Gonzalez MD, PhD [address] [place] [address] Samm@d [email or web address] 03/08/2025 2:00 PM EST Office Visit [facility], [address], 10th [place] [address] Jair Gonzalez MD, PhD [address] [place] [address] Samm@d [email or web address] documented as of this encounter Results [...] liver documented in this encounter Care Teams Power Machine Operator Relationship Specialty Start Date End Date Alban Abrams MD [address] [place] [address] [place] [address] PCP - General Internal Medicine 02/17/17 Self-Referred, Patient Referring Physician 02/17/17 Jair Gonzalez MD, PhD [address] [place] [phone] Samm@[email or web address] Primary Oncologist Oncology 02/17/17 Jair Gonzalez MD, PhD [address] [place] [phone] Samm@[email or web address] Primary Oncologist Oncology 02/17/17 Raymon Norman MD [address] [place] [address] [email or web address] Primary Oncologist Surgical Oncology 03/17/17 Shiloh Beck MD [address] [place] [address] [email or web address] Hematology and Oncology 12/30/17 documented as of this encounter Additional Source Comments The information contained in this document represents components of the legal health record. It is not the complete legal health record.[facility]
--- OUTSIDE RECORDS SUMMARY | 2025-01-26 19:46 | XMS_ITS | Encounter Summary ---
Author Organization [facility] Address [address] [place] [address] Phone Care Team Providers Care Public Welfare Director Name Role Phone Alban Abrams MD Primary Care Provider [phone] Self-Referred, Patient Unavailable Unavailab Jair Rodriguez MD, PhD Unavailable [phone] Jair Gonzalez MD, PhD Unavailable [phone] Raymon Norman MD Unavailable [phone] Shiloh Beck MD Unavailable [phone] Encounter Details Date Type Department Care Team (Late st Contact Info) Description 08/11/2023 Procedure Pass [facility] [address] [place] [address] Social History Tobacco Use Types Packs/Day Years [...] Contact Info) Description 10/12/2024 [facility], [facility], [place] [address] [facility], Floor [address]1 [place] [address] 10/12/2024 Procedure [facility], [facility], [place] [address] [facility], Floor [address]1 [place] [address] 03/08/2025 8:50 AM EST Blood Draw Laboratory Services, [facility] [place] 300 [facility] 3rd [place] [address] Jair Gonzalez MD, PhD [address] [place] [address] [email or web address] 03/08/2025 10:40 AM EST Appointment [facility], [facility], [place] [address] [facility], [facility] L1 [place] [address] Jair Gonzalez MD, PhD [address] [place] [phone] [email or web address] 03/08/2025 2:00 PM EST Office Visit [facility], [address], 10th [place] [address] Jair Gonzalez MD, PhD [address] [place] [address] Samm@d [email or web address] documented as of this encounter Visit Diagnoses Not on filedocumented in this encounter Care Teams Public Welfare Director Relationship Specialty Start Date End Date Alban Abrams MD [address] [place] [address] [address] PCP - General Internal Medicine 02/17/17 Self-Referred, Patient Referring Physician 02/17/17 Jair Gonzalez MD, PhD [address] [place] [address] [email or web address] Primary Oncologist Oncology 02/17/17 Jair Gonzalez MD, PhD [address] [place] [address] [email or web address] Primary Oncologist Oncology 02/17/17 Raymon Norman MD [address] [place] [address] [email or web address] Primary Oncologist Surgical Oncology 03/17/17 Shiloh Beck MD [address] [place] [address] [email or web address] Hemat[facility] On[facility] 12/30/17 documented as of this encounter Additional Source Comments The information contained in this document represents components of the legal health record. It is not the complete legal health record.[facility]
--- OUTSIDE RECORDS SUMMARY | 2025-01-26 19:46 | XMS_ITS | Encounter Summary ---
Author Organization [facility] Address [address] [place] [address] Phone Care Team Providers Care Brokerage Branch Manager Name Role Phone Alban Abrams MD Primary Care Provider [phone] Self-Referred, Patient Unavailable Unavailab Jair Rodriguez MD, PhD Unavailable [phone] Jair Gonzalez MD, PhD Unavailable [phone] Raymon Norman MD Unavailable Shiloh Beck MD Unavailable [phone] Encounter Details Date Type Department Care Team (Late st Contact Info) Description 12/30/2023 Procedure Pass [facility], [facility] [place] 450 [facility], Floor [address]1 [place] [address] Social History Tobacco Use Types Packs/Day Years [...] Pass [facility] Imaging Department, [facility] [place] [address] [facility], Floor [address]1 [place] [address] 10/12/2024 Procedure Pass [facility] Imaging Department, [facility], [place] [address] [facility], Floor [address]1 [place] [address] 03/08/2025 8:50 AM EST Blood Draw Laboratory Services, [facility] [place] [facility] [place] 300 [facility] 3rd [place] [address] Jair Gonzalez MD, PhD 450 [place] [address] Samm@d [email or web address] 03/08/2025 10:40 AM EST Appointment [facility], [facility], [place] [address] [facility], Floor [address]1 [place] [address] Jair Gonzalez MD, PhD [address] [place] [phone] Samm@[email or web address] 03/08/2025 2:00 PM EST Office Visit [facility], [address], 10th [place] [address] Jair Gonzalez MD, PhD [address] [place] [address] Samm@[email or web address] documented as of this encounter Visit Diagnoses Not on filedocumented in this encounter Care Teams Brokerage Branch Manager Relationship Specialty Start Date End Date Alban Abrams MD [address] [place] [address] [place] [address] PCP - General Internal Medicine 02/17/17 Self-Referred, Patient Referring Physician 02/17/17 Jair Gonzalez MD, PhD [address] [place] [phone] [email or web address] Primary Oncologist Oncology 02/17/17 Jair Gonzalez MD, PhD [address] [place] [phone] [email or web address] Primary Oncologist Oncology 02/17/17 Raymon Norman MD [address] [place] [address] [email or web address] Primary Oncologist Surgical Oncology 03/17/17 Shiloh Beck MD [address] [place] [address] [email or web address] Hematology and Oncology 12/30/17 documented as of this encounter Additional Source Comments The information contained in this document represents components of the legal health record. It is not the complete legal health record.[facility]
--- OUTSIDE RECORDS SUMMARY | 2025-01-26 19:46 | XMS_ITS | Encounter Summary ---
Author Organization [facility] Address [address] [facility] [address] [place] [address] Phone Care Team Providers Care Sales And Marketing Coordinator Name Role Phone Alban Abrams MD Primary Care Provider [phone] Self-Referred, Patient Unavailable Unavailab Jair Rodriguez MD, PhD Unavailable [phone] Jair Gonzalez MD, PhD Unavailable [phone] Raymon Norman MD Unavailable [phone] Shiloh Beck MD Unavailable [phone] Encounter Details Date Type Department Care Team (Late st Contact Info) Description 03/11/2017 Procedure Pass [facility] 450 [place] [address] Social History Tobacco Use Types Packs/Day Years [...] Pass [facility], [facility] [place], [place] 450 [facility], Floor L1 [place] [address] 10/12/2024 Procedure Pass [facility], [facility], [place] [address] [facility], Floor L1 [place] [address] 03/08/2025 8:50 AM EST Blood Draw Laboratory Services, [facility] [place] 300 [facility] 3rd [place] [address] Jair Gonzalez MD, PhD [address] [place] [address] Samm@d [email or web address] 03/08/2025 10:40 AM EST Appointment [facility] Imaging Department, [facility], [place] [address] [facility], Floor L1 [place] [address] Jair Gonzalez MD, PhD [address] [place], [place] [phone] [email or web address] [email or web address] 03/08/2025 2:00 PM EST Office Visit [facility], [address], 10th [place] [address] Jair Gonzalez MD, PhD [address] [place] [phone] [email or web address] documented as of this encounter Visit Diagnoses Not on filedocumented in this encounter Care Teams Sales And Marketing Coordinator Relationship Specialty Start Date End Date Alban Abrams MD [address] [place] [address] [place] [address] PCP - General Internal Medicine 02/17/17 Self-Referred, Patient Referring Physician 02/17/17 Jair Gonzalez MD, PhD [address] [place] [phone] Samm@[email or web address] Primary Oncologist Oncology 02/17/17 Jair Gonzalez MD, PhD [address] [place] [phone] [email or web address] Primary Oncologist Oncology 02/17/17 Raymon Norman MD [address] [place] [phone] [email or web address] u Primary Oncologist Surgical Oncology 03/17/17 Shiloh Beck MD [address] [place] [phone] [email or web address] Hematology and Oncology 12/30/17 documented as of this encounter Additional Source Comments The information contained in this document represents components of the legal health record. It is not the complete legal health record.[facility]
--- OUTSIDE RECORDS SUMMARY | 2025-01-26 19:46 | XMS_ITS | Encounter Summary ---
Author Organization [facility] Address [address] [place] [address] Phone Care Team Providers Care Land Acquisition Manager Name Role Phone Alban Abrams MD Primary Care Provider [phone] Self-Referred, Patient Unavailable Unavailab Jair Rodriguez MD, PhD Unavailable [phone] Jair Gonzalez MD, PhD Unavailable [phone] Raymon Norman MD Unavailable [phone] Shiloh Beck MD Unavailable [phone] Encounter Details Date Type Department Care Team (Late st Contact Info) Description 05/26/2023 Procedure Pass [facility] 70 [place] [address] Social History Tobacco Use Types Packs/Day Years [...] 10/12/2024 Procedure Pass [facility] Imaging Department, [facility], [place] 450 [facility], Floor L1 [place] [address] 10/12/2024 Procedure Pass [facility] Imaging Department, [facility], [place] [address] [facility], Floor [address]1 [place] [address] 03/08/2025 8:50 AM EST Blood Draw Laboratory Services, [facility] [place] 300 [facility] 3rd [place] [address] Jair Gonzalez MD, PhD [address] [place] [phone] Samm@[email or web address] 03/08/2025 10:40 AM EST Appointment [facility] Imaging Department, [facility], [place] [address] [facility], Floor L1 [place] [address] Jair Gonzalez MD, PhD [address] [place] [phone] Samm@[email or web address] 03/08/2025 2:00 PM EST Office Visit [facility], [address], 10th [place] [address] Jair Gonzalez MD, PhD [address] [place] [phone] Samm@d [email or web address] documented as of this encounter Visit Diagnoses Not on filedocumented in this encounter Care Teams Land Acquisition Manager Relationship Specialty Start Date End Date Alban Abrams MD [address] [place] [address] [address] PCP - General Internal Medicine 02/17/17 Self-Referred, Patient Referring Physician 02/17/17 Jair Gonzalez MD, PhD [address] [place] [phone] [email or web address] Primary Oncologist Oncology 02/17/17 Jair Gonzalez MD, PhD [address] [place] [phone] Samm@[email or web address] Primary Oncologist Oncology 02/17/17 Raymon Norman MD [address] [place] [phone] [email or web address] Primary Oncologist Surgical Oncology 03/17/17 Shiloh Beck MD [address] [place] [phone] [email or web address] [employer] Hematology and Oncology 12/30/17 documented as of this encounter Additional Source Comments The information contained in this document represents components of the legal health record. It is not the complete legal health record.[facility]
--- OUTSIDE RECORDS SUMMARY | 2025-01-26 19:46 | XMS_ITS | Encounter Summary ---
Author Organization [facility] Address [address] [facility] [address] [place] [address] Phone Care Team Providers Care Concrete Grinder Operator Name Role Phone Alban Abrams MD Primary Care Provider Self-Referred, Patient Unavailable Unavailab Jair Rodriguez MD, PhD Unavailable [phone] Jair Gonzalez MD, PhD Unavailable [phone] Raymon Norman MD Unavailable [phone] Shiloh Beck MD Unavailable [phone] Encounter Details Date Type Department Care Team (Late st Contact Info) Description 10/03/2019 Procedure Pass [facility], [facility] [place], [place] [address] [facility], Floor L1 [place] [address] Social History Tobacco Use Types Packs/Day Years [...] Contact Info) Description 10/12/2024 Procedure Pass [facility] Imaging [facility], [facility], [place] [address] [facility], Floor [address]1 [place] [address] 10/12/2024 Procedure Pass [facility] Imaging Department, [facility], [place] [address] [facility], Floor [address]1 [place] [address] 03/08/2025 8:50 AM EST Blood Draw Laboratory Services, [facility] [place] 300 [facility] 3rd [place] [address] Jair Gonzalez MD, PhD [address] [place] [phone] Samm@d [email or web address] 03/08/2025 10:40 AM EST Appointment [facility] Imaging Department, [facility], [place] [address] [facility], Floor [address]1 [place] [address] Jair Gonzalez MD, PhD [address] [place] [phone] Samm@d [email or web address] 03/08/2025 2:00 PM EST Office Visit [facility], [address], 10th [place] [address] Jair Gonzalez MD, PhD [address] [place] [phone] Samm@d [email or web address] documented as of this encounter Visit Diagnoses Not on filedocumented in this encounter Care Teams Concrete Grinder Operator Relationship Specialty Start Date End Date Alban Abrams MD [address] [place] [address] [place] [address] PCP - General Internal Medicine 02/17/17 Self-Referred, Patient Referring Physician 02/17/17 Jair Gonzalez MD, PhD [address] [place] [phone] [email or web address] Primary Oncologist Oncology 02/17/17 Jair Gonzalez MD, PhD [address] [place] [phone] Samm@[email or web address] Primary Oncologist Oncology 02/17/17 Raymon Norman MD [address] [place] [phone] [email or web address] Primary Oncologist Surgical Oncology 03/17/17 Shiloh Beck MD 5 [place] [address] [email or web address] Hematology and Oncology 12/30/17 documented as of this encounter Additional Source Comments The information contained in this document represents components of the legal health record. It is not the complete legal health record.[facility]
--- OUTSIDE RECORDS SUMMARY | 2025-01-26 19:46 | XMS_ITS | Encounter Summary ---
Author Organization [facility] Address [address] [facility] [address] [place] [address] Phone Care Team Providers Care Farm Reporter Name Role Phone Alban Abrams MD Primary Care Provider [phone] Self-Referred, Patient Unavailable Unavailab Jair Rodriguez MD, PhD Unavailable [phone] Jair Gonzalez MD, PhD Unavailable [phone] Raymon Norman MD Unavailable [phone] Shiloh Beck MD Unavailable [phone] Encounter Details Date Type Department Care Team (Late st Contact Info) Description 10/23/2021 Procedure Pass [facility], [facility] [place] [address] [facility], Floor L1 [place] [address] Social History Tobacco Use Types Packs/Day Years [...] Info) Description 10/12/2024 Procedure Pass [facility] Imaging Department, [facility], [place] [address] [facility], Floor L1 [place] [address] 10/12/2024 Procedure Pass [facility] Imaging Department, [facility], [place] [address] [facility], Floor [address]1 [place] [address] 03/08/2025 8:50 AM EST Blood Draw Laboratory Services, [facility] [place] 300 [facility] 3rd [place] [address] Jair Gonzalez MD, PhD [address] [place] [phone] [email or web address] [email or web address] 03/08/2025 10:40 AM EST Appointment [facility] Imaging Department, [facility], [place] [address] [facility], Floor [address]1 [place] [address] Jair Gonzalez MD, PhD [address] [place] [phone] Samm@d [email or web address] 03/08/2025 2:00 PM EST Office Visit [facility], [address], 10th [place] [address] Jair Gonzalez MD, PhD [address] [place] [phone] Samm@d [email or web address] documented as of this encounter Visit Diagnoses Not on filedocumented in this encounter Care Teams Farm Reporter Relationship Specialty Start Date End Date Alban Abrams MD [address] [place] [address] [place] [address] PCP - General Internal Medicine 02/17/17 Self-Referred, Patient Referring Physician 02/17/17 Jair Gonzalez MD, PhD [address] [place] [phone] Samm@[email or web address] Primary Oncologist Oncology 02/17/17 Jair Gonzalez MD, PhD [address] [place] [phone] Samm@[email or web address] Primary Oncologist Oncology 02/17/17 Raymon Norman MD [address] [place] [phone] [email or web address] Primary Oncologist Surgical Oncology 03/17/17 Shiloh Beck MD [address] [place] [phone] [email or web address] Hematology and Oncology 12/30/17 documented as of this encounter Additional Source Comments The information contained in this document represents components of the legal health record. It is not the complete legal health record.[facility]
--- OUTSIDE RECORDS SUMMARY | 2025-01-26 19:46 | XMS_ITS | Encounter Summary ---
Author Organization [facility] Address [address] [place] [address] Phone Care Team Providers Care Dinkey Motor Operator Name Role Phone Alban Abrams MD Primary Care Provider [phone] Self-Referred, Patient Unavailable Unavailab Jair Rodriguez MD, PhD Unavailable [phone] Jair Gonzalez MD, PhD Unavailable [phone] Raymon Norman MD Unavailable [phone] Shiloh Beck MD Unavailable [phone] Encounter Details Date Type Department Care Team (Late st Contact Info) Description 05/26/2023 Procedure Pass [facility], [place] [address] [place] [address] Social History Tobacco Use Types Packs/Day Years [...] Contact Info) Description 10/12/2024 Procedure Pass [facility] Imaging Department, [facility], [place] [address] [facility], Floor L1 [place] [address] 10/12/2024 Procedure Pass [facility] Imaging Department, [facility], [place] 450 [facility], Floor [address]1 [place] [address] 03/08/2025 8:50 AM EST Blood Draw Laboratory Services, [facility] [place] 300 [facility] 3rd [place] [address] Jair Gonzalez MD, PhD [address] [place] [phone] [email or web address] 03/08/2025 10:40 AM EST Appointment [facility] Imaging Department, [facility], [place] [address] [facility], Floor [address]1 [place] [address] Jair Gonzalez MD, PhD [address] [place] [phone] [email or web address] 03/08/2025 2:00 PM EST Office Visit [facility], [address], 10th [place] [address] Jair Gonzalez MD, PhD [address] [place] [phone] Samm@d [facility] documented as of this encounter Visit Diagnoses Not on filedocumented in this encounter Care Teams Dinkey Motor Operator Relationship Specialty Start Date End Date Alban Abrams MD [address] [place] [address] [address] PCP - General Internal Medicine 02/17/17 Self-Referred, Patient Referring Physician 02/17/17 Jair Gonzalez MD, PhD [address] [place] [phone] [email or web address] Primary Oncologist Oncology 02/17/17 Jair Gonzalez MD, PhD [address] [place] [phone] Samm@[email or web address] Primary Oncologist Oncology 02/17/17 Raymon Norman MD [address] [place] [address] [email or web address] Primary Oncologist Surgical Oncology 03/17/17 Shiloh Beck MD [address] [place] [phone] [email or web address] [employer] Hematology and Oncology 12/30/17 documented as of this encounter Additional Source Comments The information contained in this document represents components of the legal health record. It is not the complete legal health record.[facility]
--- OUTSIDE RECORDS SUMMARY | 2025-01-26 19:46 | XMS_ITS | Encounter Summary ---
Author Organization [facility] Address [address] [facility] [address] [place] [address] Phone Care Team Providers Care Sports Athletic Trainer Name Role Phone Alban Abrams MD Primary Care Provider [phone] Self-Referred, Patient Unavailable Unavailab Jair Rodriguez MD, PhD Unavailable [phone] Jair Gonzalez MD, PhD Unavailable [phone] Raymon Norman MD Unavailable [phone] Shiloh Beck MD Unavailable [phone] Encounter Details Date Type Department Care Team (Late st Contact Info) Description 10/26/2023 Procedure Pass [facility] Periop [address] [place] [address] Social History Tobacco Use Types Packs/Day Years [...] 6:20 PM EDT Dawna Pozo RN * Mellette Suicide Severity Rating Scale (Screener/Recent Self-Report) Question [...] 10/12/2024 Procedure Pass [facility] Imaging [facility], [facility], [place] [address] [facility], Floor [address]1 [place] [address] 10/12/2024 Procedure Pass [facility] Imaging Department, [facility] [place] [address] [facility], Floor [address]1 [place] [address] 03/08/2025 8:50 AM EST Blood Draw Laboratory Services, [facility] at [place] [address] [facility] 3rd [place] [address] Jair Gonzalez MD, PhD [address] [place] [phone] [email or web address] 03/08/2025 10:40 AM EST Appointment [facility] Imaging Department, [facility], [place] [address] [facility], Floor [address]1 [place] [address] Jair Gonzalez MD, PhD [address] [place] [phone] Samm@d [email or web address] 03/08/2025 2:00 PM EST Office Visit [facility], [address], 10th [place] [address] Jair Gonzalez MD, PhD [address] [place] [phone] Samm@d [email or web address] documented as of this encounter Visit Diagnoses Not on filedocumented in this encounter Care Teams Sports Athletic Trainer Relationship Specialty Start Date End Date Alban Abrams MD [address] [place] [address] [place] [address] PCP - General Internal Medicine 02/17/17 Self-Referred, Patient Referring Physician 02/17/17 Jair Gonzalez MD, PhD [address] [place] [phone] [email or web address] Primary Oncologist Oncology 02/17/17 Jair Gonzalez MD, PhD [address] [place] [phone] [email or web address] Primary Oncologist Oncology 02/17/17 Raymon Norman MD [address] [place] [address] [email or web address]. u Primary Oncologist Surgical Oncology 03/17/17 Shiloh Beck MD [address] [place] [address] [email or web address] [facility] 12/30/17 documented as of this encounter Additional Source Comments The information contained in this document represents components of the legal health record. It is not the complete legal health record.[facility]
--- OUTSIDE RECORDS SUMMARY | 2025-01-26 19:46 | XMS_ITS | Encounter Summary ---
Author Organization [facility] Address [address] [facility] [address] [place] [address] Phone Care Team Providers Care Web Press Operator Helper Offset Name Role Phone Alban Abrams MD Primary Care Provider [phone] Self-Referred, Patient Unavailable Unavailab Jair Rodriguez MD, PhD Unavailable [phone] Jair Gonzalez MD, PhD Unavailable [phone] Raymon Norman MD Unavailable [phone] Shiloh Beck MD Unavailable [phone] Encounter Details Date Type Department Care Team (Late st Contact Info) Description 10/15/2017 Procedure Pass [facility] Imaging Department, [facility] [place], [place] [address] [facility], Floor [address]1 [place] [address] Social History Tobacco Use Types Packs/Day Years [...] st Contact Info) Description 10/12/2024 Procedure Pass [facility] Imaging Department, [facility], [place] [address] [facility], Floor [address]1 [place] [address] 10/12/2024 Procedure Pass [facility] Imaging Department, [facility] [place] [address] [facility], Floor [address] [place] [address] 03/08/2025 8:50 AM EST Blood Draw Laboratory Services, [facility] [place] [address] [facility] 3rd [place] [address] Jair Gonzalez MD, PhD [address] [place] [phone] [email or web address] [email or web address] 03/08/2025 10:40 AM EST Appointment [facility] Imaging Department, [facility], [place] [address] [facility], Floor [address]1 [place] [address] Jair Gonzalez MD, PhD [address] [place] [phone] Samm@d [email or web address] 03/08/2025 2:00 PM EST Office Visit [facility], [address], 10th [place] [address] Jair Gonzalez MD, PhD [address] [place] [phone] Samm@d [email or web address] documented as of this encounter Visit Diagnoses Not on filedocumented in this encounter Care Teams Web Press Operator Helper Offset Relationship Specialty Start Date End Date Alban Abrams MD [address] [place] [address] [place] [address] PCP - General Internal Medicine 02/17/17 Self-Referred, Patient Referring Physician 02/17/17 Jair Gonzalez MD, PhD [address] [place] [phone] [email or web address] Primary Oncologist Oncology 02/17/17 Jair Gonzalez MD, PhD [address] [place] [phone] Samm@[email or web address] Primary Oncologist Oncology 02/17/17 Raymon Norman MD [address] [place] [phone] [email or web address] Primary Oncologist Surgical Oncology 03/17/17 Shiloh Beck MD [address] [place] [address] [email or web address] [facility] On[facility] 12/30/17 documented as of this encounter Additional Source Comments The information contained in this document represents components of the legal health record. It is not the complete legal health record.[facility]
--- OUTSIDE RECORDS SUMMARY | 2025-01-26 19:47 | XMS_ITS | Encounter Summary ---
Author Organization [facility] Address [address] [facility] [address] [place] [address] Phone Care Team Providers Care Tablet Making Machine Operator Helper Name Role Phone Alban Abrams MD Primary Care Provider [phone] Self-Referred, Patient Unavailable Unavailab Jair Rodriguez MD, PhD Unavailable [phone] Jair Gonzalez MD, PhD Unavailable [phone] Raymon Norman MD Unavailable Shiloh Beck MD Unavailable [phone] Encounter Details Date Type Department Care Team (Late Contact Info) Description 10/08/2017 Procedure Pass [facility] Imaging, [place] [address] [place] [address] Social History Tobacco Use Types Packs/Day Years [...] st Contact Info) Description 10/12/2024 [facility] [place] [address] [facility], Floor [address]1 [place] [address] 10/12/2024 [facility] [place] [address] [facility], Floor [address]1 [place] [address] 03/08/2025 8:50 AM EST Blood Draw Laboratory Services, [facility] [place] [address] [facility] 3rd [place] [address] Jair Gonzalez MD, PhD [address] [place] [phone] [email or web address] [email or web address] 03/08/2025 10:40 AM EST Appointment [facility] Imaging Department, [facility] [place] [address] [facility], Floor [address]1 [place] [address] Jair Gonzalez MD, PhD [address] [place] [phone] Samm@d [email or web address] 03/08/2025 2:00 PM EST Office Visit [facility], [address], 10th [place] [address] Jair Gonzalez MD, PhD [address] [place] [phone] Samm@d [email or web address] documented as of this encounter Visit Diagnoses Not on filedocumented in this encounter Care Teams Tablet Making Machine Operator Helper Relationship Specialty Start Date End Date Alban Abrams MD [address] [place] [address] [place] [address] PCP - General Internal Medicine 02/17/17 Self-Referred, Patient Referring Physician 02/17/17 Jair Gonzalez MD, PhD [address] [place] [address] Samm@[email or web address] Primary Oncologist Oncology 02/17/17 Jair Gonzalez MD, PhD [address] [place] [phone] Samm@[email or web address] Primary Oncologist Oncology 02/17/17 Raymon Norman MD [address] [place] [address] [email or web address]. u Primary Oncologist Surgical Oncology 03/17/17 Shiloh Beck MD [address] [place] [address] [email or web address] H[facility] On[facility] 12/30/17 documented as of this encounter Additional Source Comments The information contained in this document represents components of the legal health record. It is not the complete legal health record.[facility]
--- OUTSIDE RECORDS SUMMARY | 2025-01-26 19:47 | XMS_ITS | Encounter Summary ---
Author Organization [facility] Address [address] [place] [address] Phone Care Team Providers Care Hot Knife Foxing Cutter Name Role Phone Alban Abrams MD Primary Care Provider [phone] Self-Referred, Patient Unavailable Unavailab Jair Rodriguez MD, PhD Unavailable [phone] Jair Gonzalez MD, PhD Unavailable [phone] Raymon Norman MD Unavailable [phone] Shiloh Beck MD Unavailable [phone] Encounter Details Date Type Department Care Team (Late Contact Info) Description 02/07/2021 Procedure Pass [facility] [address] [place] [address] Social History Tobacco Use Types Packs/Day Years [...] (Late Contact Info) Description 10/12/2024 Procedure Pass [facility] Imaging Department, [facility] [place] [address] [facility], Floor L1 [place] [address] 10/12/2024 Procedure Pass [facility] Imaging Department, [facility] [place] [address] [facility], Floor [address]1 [place] [address] 03/08/2025 8:50 AM EST Blood Draw Laboratory Services, [facility] [place] [address] [facility] 3rd [place] [address] Jair Gonzalez MD, PhD [address] [place] [phone] Samm@d [facility] 03/08/2025 10:40 AM EST Appointment [facility] Imaging Department, [facility] [place] [address] [facility], Floor [address]1 [place] [address] Jair Gonzalez MD, PhD [address] [place] [phone] Samm@d [email or web address] 03/08/2025 2:00 PM EST Office Visit [facility], [address], 10th [place] [address] Jair Gonzalez MD, PhD [address] [place] [phone] Samm@d [email or web address] documented as of this encounter Visit Diagnoses Not on filedocumented in this encounter Care Teams Hot Knife Foxing Cutter Relationship Specialty Start Date End Date Alban Abrams MD [address] [place] [address] [place] [address] PCP - General Internal Medicine 02/17/17 Self-Referred, Patient Referring Physician 02/17/17 Jair Gonzalez MD, PhD [address] [place] [phone] Samm@[email or web address] Primary Oncologist Oncology 02/17/17 Jair Gonzalez MD, PhD [address] [place] [phone] Samm@[email or web address] Primary Oncologist Oncology 02/17/17 Raymon Norman MD [address] [place] [address] [email or web address]. u Primary Oncologist Surgical Oncology 03/17/17 Shiloh Beck MD [address] [place] [address] [email or web address] Hematology and Oncology 12/30/17 documented as of this encounter Additional Source Comments The information contained in this document represents components of the legal health record. It is not the complete legal health record.[facility]
--- OUTSIDE RECORDS SUMMARY | 2025-01-26 19:47 | XMS_ITS | Encounter Summary ---
Author Organization [facility] Address [address] [facility] [address] [place] [address] Phone Care Team Providers Care Senior It Architect Name Role Phone Alban Abrams MD Primary Care Provider [phone] Self-Referred, Patient Unavailable Unavailab Jair Rodriguez MD, PhD Unavailable [phone] Jair Gonzalez MD, PhD Unavailable [phone] Raymon Norman MD Unavailable [phone] Shiloh Beck MD Unavailable Encounter Details Date Type Department Care Team (Late Contact Info) Description 04/13/2017 Procedure Pass [facility] Endoscopy Department 75 [place] [address] Social History Tobacco Use Types Packs/Day Years [...] Contact Info) Description 10/12/2024 Procedure Pass [facility] Imaging Department, [facility] [place] [address] [facility], Floor L1 [place] [address] 10/12/2024 Procedure Pass [facility] Imaging Department, [facility] [place] [address] [facility], Floor [address]1 [place] [address] 03/08/2025 8:50 AM EST Blood Draw Laboratory Services, [facility] [place] [address] [facility] 3rd [place] [address] Jair Gonzalez MD, PhD [address] [place] [phone] Samm@d [email or web address] 03/08/2025 10:40 AM EST Appointment [facility] Imaging Department, [facility] [place] [address] [facility], Floor [address]1 [place] [address] Jair Gonzalez MD, PhD [address] [place] [phone] Samm@d [facility] 03/08/2025 2:00 PM EST Office Visit [facility], [address], 10th [place] [address] Jair Gonzalez MD, PhD [address] [place] [phone] Samm@d [facility] documented as of this encounter Visit Diagnoses Not on filedocumented in this encounter Care Teams Senior It Architect Relationship Specialty Start Date End Date Alban Abrams MD [address] [place] [address] [place] [address] PCP - General Internal Medicine 02/17/17 Self-Referred, Patient Referring Physician 02/17/17 Jair Gonzalez MD, PhD [address] [place] [address] Samm@[email or web address] Primary Oncologist Oncology 02/17/17 Jair Gonzalez MD, PhD [address] [place] [phone] Samm@[email or web address] Primary Oncologist Oncology 02/17/17 Raymon Norman MD [address] [place] [phone] [email or web address]. u Primary Oncologist Surgical Oncology 03/17/17 Shiloh Beck MD [address] [place] [phone] [email or web address] [facility] 12/30/17 documented as of this encounter Additional Source Comments The information contained in this document represents components of the legal health record. It is not the complete legal health record.[facility]
--- OUTSIDE RECORDS SUMMARY | 2025-01-26 19:47 | XMS_ITS | Encounter Summary ---
Author Organization [facility] Address [address] [employer] [facility] [address] [place] [address] Phone Care Team Providers Care Scullion Chief Name Role Phone Alban Abrams MD Primary Care Provider [phone] Self-Referred, Patient Unavailable Unavailab Jair Rodriguez MD, PhD Unavailable [phone] Jair Gonzalez MD, PhD Unavailable [phone] Raymon Norman MD Unavailable [phone] Shiloh Beck MD Unavailable [phone] Encounter Details Date Type Department Care Team (Late st Contact Info) Description 06/10/2017 Procedure Pass [facility] Imaging Department, [facility] [place] [address] [facility], Floor L1 [place] [address] Social History Tobacco Use Types Packs/Day Years [...] st Contact Info) Description 10/12/2024 Procedure Pass [facility] Imaging Department, [facility] [place] [address] [facility], Floor L1 [place] [address] 10/12/2024 Procedure Pass [facility] Imaging Department, [facility] [place] [address] [facility], Floor [address]1 [place] [address] 03/08/2025 8:50 AM EST Blood Draw Laboratory Services, [facility] [place] 300 [facility] 3rd [place] [address] Jair Gonzalez MD, PhD [address] [place] [phone] Samm@d [email or web address] 03/08/2025 10:40 AM EST Appointment [facility] Imaging Department, [facility] [place] [address] [facility], Floor [address]1 [place] [address] Jair Gonzalez MD, PhD [address] [place] [phone] Samm@d [email or web address] 03/08/2025 2:00 PM EST Office Visit [facility], [address], 10th [place] [address] Jair Gonzalez MD, PhD [address] [place] [phone] Samm@d [email or web address] documented as of this encounter Visit Diagnoses Not on filedocumented in this encounter Care Teams Scullion Chief Relationship Specialty Start Date End Date Alban Abrams MD [address] [place] [address] [place] [address] PCP - General Internal Medicine 02/17/17 Self-Referred, Patient Referring Physician 02/17/17 Jair Gonzalez MD, PhD [address] [place] [phone] [email or web address] Primary Oncologist Oncology 02/17/17 Jair Gonzalez MD, PhD [address] [place] [phone] Samm@[email or web address] Primary Oncologist Oncology 02/17/17 Raymon Norman MD [address] [place] [phone] [email or web address] Primary Oncologist Surgical Oncology 03/17/17 Shiloh Beck MD 5 [place] [address] [email or web address] Hematology [facility] Oncology 12/30/17 documented as of this encounter Additional Source Comments The information contained in this document represents components of the legal health record. It is not the complete legal health record.[facility]
--- OUTSIDE RECORDS SUMMARY | 2025-01-26 19:47 | XMS_ITS | Encounter Summary ---
Author Organization [facility] Address [address] [facility] [address] [place] [address] Phone Care Team Providers Care Squeegee Operator Name Role Phone Alban Abrams MD Primary Care Provider [phone] Self-Referred, Patient Unavailable Unavailab Jair Rodriguez MD, PhD Unavailable [phone] Jair Gonzalez MD, PhD Unavailable [phone] Raymon Norman MD Unavailable [phone] Shiloh Beck MD Unavailable [phone] Encounter Details Date Type Department Care Team (Late st Contact Info) Description 10/10/2020 Procedure Pass [facility] Imaging Department, [facility] [place] [place] [address] [facility], Floor [address]1 [place] [address] Social History Tobacco Use Types Packs/Day Years [...] Contact Info) Description 10/12/2024 Procedure Pass [facility] Imaging Department, [facility] [place] [address] [facility], Floor [address]1 [place] [address] 10/12/2024 Procedure Pass [facility] Imaging Department, [facility] [place] [address] [facility], Floor [address]1 [place] [address] 03/08/2025 8:50 AM EST Blood Draw Laboratory Services, [facility] [place] [address] [facility] 3rd [place] [address] Jair Gonzalez MD, PhD [address] [place] [phone] Samm@d [email or web address] 03/08/2025 10:40 AM EST Appointment [facility] Imaging Department, [facility] [place] [address] [facility], Floor [address]1 [place] [address] Jair Gonzalez MD, PhD [address] [place] [phone] Samm@d [email or web address] 03/08/2025 2:00 PM EST Office Visit [facility], [address], 10th [place] [address] Jair Gonzalez MD, PhD [address] [place] [phone] Samm@d [email or web address] documented as of this encounter Visit Diagnoses Not on filedocumented in this encounter Care Teams Squeegee Operator Relationship Specialty Start Date End Date Alban Abrams MD [address] [place] [address] [place] [address] PCP - General Internal Medicine 02/17/17 Self-Referred, Patient Referring Physician 02/17/17 Jair Gonzalez MD, PhD [address] [place] [phone] Samm@[email or web address] Primary Oncologist Oncology 02/17/17 Jair Gonzalez MD, PhD [address] [place] [phone] Samm@[email or web address] Primary Oncologist Oncology 02/17/17 Raymon Norman MD [address] [place] [phone] [email or web address]. u Primary Oncologist Surgical Oncology 03/17/17 Shiloh Beck MD [address] [place] [phone] [email or web address] Hematology and Oncology 12/30/17 documented as of this encounter Additional Source Comments The information contained in this document represents components of the legal health record. It is not the complete legal health record.[facility]
--- OUTSIDE RECORDS SUMMARY | 2025-01-26 19:47 | XMS_ITS | Encounter Summary ---
Author Organization [facility] Address [address] [facility] ([place], [place]) [address] [place] [address] Phone Care Team Providers Care Electronic Warfare Operator Name Role Phone Alban Abrams MD Primary Care Provider [phone] Self-Referred, Patient Unavailable Unavailab Jair Rodriguez MD, PhD Unavailable [phone] Jair Gonzalez MD, PhD Unavailable [phone] Raymon Norman MD Unavailable [phone] Shiloh Beck MD Unavailable [phone] Encounter Details Date Type Department Care Team (Late st Contact Info) Description 10/10/2020 Procedure Pass [facility] Imaging Department, [facility] [place] [address] [facility], Floor L1 [place] [address] Social History Tobacco Use Types Packs/Day Years [...] [facility] Imaging Department, [facility], [place] [address] [facility], Floor L1 [place] [address] 10/12/2024 Procedure Pass [facility] Imaging Department, [facility], [place] [address] [facility], Floor L1 [place] [address] 03/08/2025 8:50 AM EST Blood Draw Laboratory Services, [facility] [place] [address] [facility] 3rd [place] [address] Jair Gonzalez MD, PhD [address] [place] [phone] [email or web address] 03/08/2025 10:40 AM EST Appointment [facility] Imaging Department, [facility], [place] [address] [facility], Floor L1 [place] [address] Jair Gonzalez MD, PhD [address] [place] [phone] [email or web address] 03/08/2025 2:00 PM EST Office Visit [facility], [address], 10th [place] [address] Jair Gonzalez MD, PhD [address] [place] [phone] [email or web address] [email or web address] documented as of this encounter Visit Diagnoses Not on filedocumented in this encounter Care Teams Electronic Warfare Operator Relationship Specialty Start Date End Date Alban Abrams MD [address] [place] [address] [place] [address] PCP - General Internal Medicine 02/17/17 Self-Referred, Patient Referring Physician 02/17/17 Jair Gonzalez MD, PhD [address] [place] [phone] [email or web address] Primary Oncologist Oncology 02/17/17 Jair Gonzalez MD, PhD [address] [place] [address] [email or web address] Primary Oncologist Oncology 02/17/17 Raymon Norman MD [address] [place] [address] [email or web address] Primary Oncologist Surgical Oncology 03/17/17 Shiloh Beck MD [address] [place] [address] [email or web address] Hematology and Oncology 12/30/17 documented as of this encounter Additional Source Comments The information contained in this document represents components of the legal health record. It is not the complete legal health record.[facility]
--- OUTSIDE RECORDS SUMMARY | 2025-01-26 19:47 | XMS_ITS | Encounter Summary ---
Author Organization [facility] Address [address] [facility] [address] [place] [address] Phone Care Team Providers Care Harbor Boat Pilot Name Role Phone Alban Abrams MD Primary Care Provider Self-Referred, Patient Unavailable Unavailab Jair Rodriguez MD, PhD Unavailable [phone] Jair Gonzalez MD, PhD Unavailable [phone] Raymon Norman MD Unavailable Shiloh Beck MD Unavailable [phone] Encounter Details Date Type Department Care Team (Late st Contact Info) Description 04/15/2017 Transcribe Orders [facility] Echocardiography [address] [place] [address] Riki Lopez MD [address] [facility] 3rd [place] [address] [email or web address] Social History Tobacco Use Types Packs/Day Years [...] 10/12/2024 Procedure Pass [facility] Imaging Department, [facility] [place] [address] [facility], Floor [address]1 [place] [address] 10/12/2024 Procedure Pass [facility] Imaging Department, [facility] [place] [address] [facility], Floor [address]1 [place] [address] 03/08/2025 8:50 AM EST Blood Draw Laboratory Services, [facility] 300 [facility] 3rd [place] [address] Jair Gonzalez MD, PhD [address] [place] [phone] [email or web address] 03/08/2025 10:40 AM EST Appointment [facility] Imaging Department, [facility] [place] [address] [facility], Floor [address]1 [place] [address] Jair Gonzalez MD, PhD [address] [place] [phone] [email or web address] 03/08/2025 2:00 PM EST Office Visit [facility], [address], 10th [place] [address] Jair Gonzalez MD, PhD [address] [place] [phone] Samm@[email or web address] documented as of this encounter Visit Diagnoses Not on filedocumented in this encounter Care Teams Harbor Boat Pilot Relationship Specialty Start Date End Date Alban Abrams MD [address] [place] [address] [place] [address] PCP - General Internal Medicine 02/17/17 Self-Referred, Patient Referring Physician 02/17/17 Jair Gonzalez MD, PhD [address] [place] [phone] [email or web address] Primary Oncologist Oncology 02/17/17 Jair Gonzalez MD, PhD [address] [place] [phone] [email or web address] Primary Oncologist Oncology 02/17/17 Raymon Norman MD [address] [place] [address] [email or web address] Primary Oncologist Surgical Oncology 03/17/17 Shiloh Beck MD [address] [place] [address] [email or web address] Hematology and Oncology 12/30/17 documented as of this encounter Additional Source Comments The information contained in this document represents components of the legal health record. It is not the complete legal health record.[facility]
--- OUTSIDE RECORDS SUMMARY | 2025-01-26 19:47 | XMS_ITS | Encounter Summary ---
Author Organization [facility] Address [address] [place] [address] Phone Care Team Providers Care Security Strategist Name Role Phone Alban Abrams MD Primary Care Provider [phone] Self-Referred, Patient Unavailable Unavailab Jair Rodriguez MD, PhD Unavailable Jair Gonzalez MD, PhD Unavailable [phone] Raymon Norman MD Unavailable [phone] Shiloh Beck MD Unavailable [phone] Encounter Details Date Type Department Care Team (Late st Contact Info) Description 01/05/2024 Procedure Pass [facility] [address] [place] [address] Social History Tobacco Use Types Packs/Day Years [...] Procedure Pass [facility] Imaging Department, [facility] [place] [address] [facility], Floor L1 [place] [address] 10/12/2024 Procedure Pass [facility] Imaging Department, [facility] [place] [address] [facility], Floor L1 [place] [address] 03/08/2025 8:50 AM EST Blood Draw Laboratory Services, [facility] [address] [address] Jair Gonzalez MD, PhD 450 [place] [address] [email or web address] 03/08/2025 10:40 AM EST Appointment [facility] Imaging Department, [facility], [place] [address] [facility], Floor L1 [place] [address] Jair Gonzalez MD, PhD [address] [place] [address] [email or web address] 03/08/2025 2:00 PM EST Office Visit [facility], [facility] 450 [facility], 10th [place] [address] Jair Gonzalez MD, PhD [address] [place] [phone] [email or web address] documented as of this encounter Visit Diagnoses Not on filedocumented in this encounter Care Teams Security Strategist Relationship Specialty Start Date End Date Alban Abrams MD [address] [place] [address] [place] [address] PCP - General Internal Medicine 02/17/17 Self-Referred, Patient Referring Physician 02/17/17 Jair Gonzalez MD, PhD [address] [place] [phone] [email or web address] Primary Oncologist Oncology 02/17/17 Jair Gonzalez MD, PhD [address] [place] [phone] [email or web address] Primary Oncologist Oncology 02/17/17 Raymon Norman MD [address] [place] [address] [email or web address] Primary Oncologist Surgical Oncology 03/17/17 Shiloh Beck MD [address] [place] [phone] [email or web address] Hematology and Oncology 12/30/17 documented as of this encounter Additional Source Comments The information contained in this document represents components of the legal health record. It is not the complete legal health record.[facility]
--- OUTSIDE RECORDS SUMMARY | 2025-01-26 19:47 | XMS_ITS | Encounter Summary ---
Author Organization [facility] Address [address] [facility] [address] [place] [address] Phone Care Team Providers Care Exceptional Children Teacher Assistant Name Role Phone Alban Abrams MD Primary Care Provider [phone] Self-Referred, Patient Unavailable Unavailab Jair Rodriguez MD, PhD Unavailable [phone] Jair Gonzalez MD, PhD Unavailable [phone] Raymon Norman MD Unavailable [phone] Shiloh Beck MD Unavailable [phone] Encounter Details Date Type Department Care Team (Late st Contact Info) Description 03/31/2017 Prep for Surgery [facility] General & GI Surgery [address] [place] [address] ASB2-3 [place] [address] Mercy Lyles MD [address] [place] [address] Department of Anesthesiology-CWN L1 [place] [address] Social History Tobacco Use Types Packs/Day Years [...] st Contact Info) Description 10/12/2024 Procedure Pass [facility] Imaging Department, [facility] [place] [address] [facility], Floor L1 [place] [address] 10/12/2024 Procedure Pass [facility] Imaging Department, [facility] [place] [address] [facility], Floor L1 [place] [address] 03/08/2025 8:50 AM EST Blood Draw Laboratory Services, [facility] [place] 300 [facility] 3rd [place] [address] Jair Gonzalez MD, PhD [address] [place] [phone] [email or web address] 03/08/2025 10:40 AM EST Appointment [facility] Imaging Department, [facility] [place] [address] [facility], Floor L1 [place] [address] Jair Gonzalez MD, PhD [address] [place] [phone] Samm@d [email or web address] 03/08/2025 2:00 PM EST Office Visit [facility], [address], 10th [place] [address] Jair Gonzalez MD, PhD [address] [place] [phone] [email or web address] [email or web address] documented as of this encounter Visit Diagnoses Not on filedocumented in this encounter Care Teams Exceptional Children Teacher Assistant Relationship Specialty Start Date End Date Alban Abrams MD [address] [place] [address] PCP - General Internal Medicine 02/17/17 Self-Referred, Patient Referring Physician 02/17/17 Jair Gonzalez MD, PhD [address] [place] [phone] [email or web address] Primary Oncologist Oncology 02/17/17 Jair Gonzalez MD, PhD [address] [place] [phone] [email or web address] Primary Oncologist Oncology 02/17/17 Raymon Norman MD [address] [place] [address] [email or web address] u Primary Oncologist Surgical Oncology 03/17/17 Shiloh Beck MD [address] [place] [address] [email or web address] Hematology and Oncology 12/30/17 documented as of this encounter Additional Source Comments The information contained in this document represents components of the legal health record. It is not the complete legal health record.[facility]
--- OUTSIDE RECORDS SUMMARY | 2025-01-26 19:47 | XMS_ITS | Encounter Summary ---
Author Organization [facility] Address [address] [place] [address] Phone Care Team Providers Care Machine Operator Hay Stacker Name Role Phone Alban Abrams MD Primary Care Provider [phone] Self-Referred, Patient Unavailable Unavailab Jair Rodriguez MD, PhD Unavailable [phone] Jair Gonzalez MD, PhD Unavailable [phone] Raymon Norman MD Unavailable [phone] Shiloh Beck MD Unavailable [phone] Encounter Details Date Type Department Care Team (Late st Contact Info) Description 11/13/2022 Procedure Pass [facility] Imaging Department, [facility] [place] [address] [facility], Floor L1 [place] [address] Social History Tobacco Use Types Packs/Day Years [...] Pass [facility] Imaging Department, [facility] [place] [address] [facility], Floor [address]1 [place] [address] 10/12/2024 Procedure Pass [facility] Imaging Department, [facility] [place] [address] [facility], Floor [address]1 [place] [address] 03/08/2025 8:50 AM EST Blood Draw Laboratory Services, [facility] [place] [address] [facility] 3rd [place] [address] Jair Gonzalez MD, PhD [address] [place] [phone] [email or web address] 03/08/2025 10:40 AM EST Appointment [facility] Imaging Department, [facility] [place] [address] [facility], Floor L1 [place] [address] Jair Gonzalez MD, PhD [address] [place] [phone] [email or web address] 03/08/2025 2:00 PM EST Office Visit [facility], [address], 10th [place] [address] Jair Gonzalez MD, PhD [address] [place] [phone] Samm@d [email or web address] documented as of this encounter Visit Diagnoses Not on filedocumented in this encounter Care Teams Machine Operator Hay Stacker Relationship Specialty Start Date End Date Alban Abrams MD [address] [place] [address] [address] PCP - General Internal Medicine 02/17/17 Self-Referred, Patient Referring Physician 02/17/17 Jair Gonzalez MD, PhD [address] [place] [phone] [email or web address] Primary Oncologist Oncology 02/17/17 Jair Gonzalez MD, PhD [address] [place] [phone] Samm@[email or web address] Primary Oncologist Oncology 02/17/17 Raymon Norman MD [address] [place] [address] [email or web address] Primary Oncologist Surgical Oncology 03/17/17 Shiloh Beck MD [address] [place] [phone] [email or web address] Hematology and Oncology 12/30/17 documented as of this encounter Additional Source Comments The information contained in this document represents components of the legal health record. It is not the complete legal health record.[facility]
--- OUTSIDE RECORDS SUMMARY | 2025-01-26 19:47 | XMS_ITS | Encounter Summary ---
Author Organization [facility] Address [address] [facility] [address] [place] [address] Phone Care Team Providers Care Pipe Or Steam Fitter Furnace Installer Name Role Phone Alban Abrams MD Primary Care Provider [phone] Self-Referred, Patient Unavailable Unavailab Jair Rodriguez MD, PhD Unavailable [phone] Jair Gonzalez MD, PhD Unavailable [phone] Raymon Norman MD Unavailable Shiloh Beck MD Unavailable [phone] Encounter Details Date Type Department Care Team (Late st Contact Info) Description 08/31/2023 Procedure Pass [facility] Periop 75 [place] [address] Social History Tobacco Use Types Packs/Day Years [...] st Contact Info) Description 10/12/2024 Procedure Pass [facility], [facility] [place] [place] [address] [facility], Floor L1 [place] [address] 10/12/2024 Procedure Pass [facility] Imaging Department, [facility] [place] [place] [address] [facility], Floor L1 [place] [address] 03/08/2025 8:50 AM EST Blood Draw Laboratory Services, [facility] [place] [facility] [place] 300 [facility] 3rd [place] [address] Jair Gonzalez MD, PhD [address] [place] [phone] Samm@[email or web address] 03/08/2025 10:40 AM EST Appointment [facility] Imaging Department, [facility] [place] [place] [address] [facility], Floor L1 [place] [address] Jair Gonzalez MD, PhD [address] [place] [phone] Samm@[email or web address] 03/08/2025 2:00 PM EST Office Visit [facility], [address], 10th [place] [address] Jair Gonzalez MD, PhD [address] [place] [phone] Samm@[email or web address] documented as of this encounter Visit Diagnoses Not on filedocumented in this encounter Care Teams Pipe Or Steam Fitter Furnace Installer Relationship Specialty Start Date End Date Alban Abrams MD [address] [place] [address] [address] PCP - General Internal Medicine 02/17/17 Self-Referred, Patient Referring Physician 02/17/17 Jair Gonzalez MD, PhD [address] [place] [phone] Samm@[email or web address] Primary Oncologist Oncology 02/17/17 Jair Gonzalez MD, PhD [address] [place] [phone] Samm@[email or web address] Primary Oncologist Oncology 02/17/17 Raymon Norman MD [address] [place] [phone] [email or web address] Primary Oncologist Surgical Oncology 03/17/17 Shiloh Beck MD [address] [place] [address] [email or web address] [employer] Hematology and Oncology 12/30/17 documented as of this encounter Additional Source Comments The information contained in this document represents components of the legal health record. It is not the complete legal health record.[facility]
--- OUTSIDE RECORDS SUMMARY | 2025-01-26 19:47 | XMS_ITS | Encounter Summary ---
Author Organization [facility] Address [address] [facility] [address] [place] [address] Phone Care Team Providers Care Care Management Specialist Name Role Phone Alban Abrams MD Primary Care Provider [phone] Self-Referred, Patient Unavailable Unavailab Jair Rodriguez MD, PhD Unavailable [phone] Jair Gonzalez MD, PhD Unavailable [phone] Raymon Norman MD Unavailable [phone] Shiloh Beck MD Unavailable Encounter Details Date Type Department Care Team (Late st Contact Info) Description 10/24/2020 Procedure Pass [facility], [facility] 300 [facility] 4th [place] [address] Social History Tobacco Use Types Packs/Day Years [...] Info) Description 10/12/2024 Procedure Pass [facility] Imaging Department, [facility] [place] 450 [facility], Floor L1 [place] [address] 10/12/2024 Procedure Pass [facility] Imaging Department, [facility], [place] [address] [facility], Floor L1 [place] [address] 03/08/2025 8:50 AM EST Blood Draw Laboratory Services, [facility] [place] 300 [facility] 3rd [place] [address] Jair Gonzalez MD, PhD [address] [place] [phone] [email or web address] 03/08/2025 10:40 AM EST Appointment [facility] Imaging Department, [facility], [place] [address] [facility], Floor L1 [place] [address] Jair Gonzalez MD, PhD [address] [place] [phone] [email or web address] [email or web address] 03/08/2025 2:00 PM EST Office Visit [facility], [address], 10th [place] [address] Jair Gonzalez MD, PhD [address] [place] [phone] Samm@[email or web address] documented as of this encounter Visit Diagnoses Not on filedocumented in this encounter Care Teams Care Management Specialist Relationship Specialty Start Date End Date Alban Abrams MD [address] [place] [address] [place] [address] PCP - General Internal Medicine 02/17/17 Self-Referred, Patient Referring Physician 02/17/17 Jair Gonzalez MD, PhD [address] [place] [phone] [email or web address] Primary Oncologist Oncology 02/17/17 Jair Gonzalez MD, PhD [address] [place] [phone] [email or web address] Primary Oncologist Oncology 02/17/17 Raymon Norman MD [address] [place] [address] [email or web address] Primary Oncologist Surgical Oncology 03/17/17 Shiloh Beck MD [address] [place] [address] [email or web address] Hematology and Oncology 12/30/17 documented as of this encounter Additional Source Comments The information contained in this document represents components of the legal health record. It is not the complete legal health record.[facility]
--- OUTSIDE RECORDS SUMMARY | 2025-01-26 19:47 | XMS_ITS | Data Portability ---
Author Organization [place] [facility], Allergy Address [address] [place] [phone] Care Team Providers Care Industrial Gas Servicer Helper Name Role Phone ORQUIDEA MYERS Primary Care Provider Assessment Encounter Date Assessment Date Assessment LastModified by Organization Details LastModified Time 08/16/2024 08/16/2024 Follow up with referring provider. [email or web address] Not available 08/16/2024 14:03:42 08/16/2024 08/16/2024 Hx of SNHL--hearing aids--hearing symmetric Dry mouth and chronic nasal d/c for years. 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 Referral None recorded. Procedures None recorded. Surgeries None recorded. Imaging None recorded. Medication Orders guaifenes in 100 mg/5 mL oral liquid 2024 025 [facility]/Pharmacy #[id number], [address] [facility], [place], [address], 08/16/2024 14:43:43 Patient TargetsNo targets recorded. Patient InstructionsNo instructions recorded. Reason for Referral None Reported. Results Created Date Observation Date Name Description Value Unit Range Abnormal Flag Note LastModifiedBy Organization Detail LastModifiedTime 08/17/19 25 audio gram No observ ation record ed. BARCODE Not Available 2024 15:01:47 Result Notes None recorded. Problems Name Problem SNOMED Code Status Onset Date Resolution Date Notes Provider Name and Address Organization Details Recorded Time Sensorine ural hearing loss of bilateral ears 628705475 Active 2018 Sensorineu ral hearing loss, bilateral; Note: Date Diagnosed: 03/04/2018 3:55 PM (H90.3) Not Available [facility] 4 03:27:05 Sensorine ural hearing loss of bilateral ears 362966746 Active 2024 DOMINIC HERNANDEZ MD [address] [facility] [address], [place], [address] , [facility] [place] 14:39:51 Chronic rhinitis 27093114 Active 2024 DOMINIC HERNANDEZ MD [address] [facility],[place] [address], [place], [place], [address] , [facility] [place] 5 14:40:02 Xerostomi a 70144493 Active 2024 DOMINIC HERNANDEZ MD [address] [facility] [address], [place], [place], [address] , [facility] [place] 5 14:40:10 Metastati c malignant neoplasm to lung 31228431 Active 2024 DOMINIC HERNANDEZ MD [address] [facility],[place] [address], [place], [place], [address] , [facility] - [facility] [place] 5 14:40:31 Finding of neck region 902601306 Active 2024 DOMINIC HERNANDEZ MD [address] [facility] [address], [place], [address] , [facility] [place] 14:44:42 Problem Notes None recorded. Procedures Surgical History Date Name Laterality Status Provider Name and Address Organization Details Recorded Time Comp Audio with Tymps - 74751 & 37900 completed AYUSH PRESCOTT, AuD [address] [facility], [address], [place] [facility] 08/16/2024 14:03:42 operation on colon completed Mavra Blevins [facility] 08/16/2024 14:23:39 Imaging Results None recorded. Procedure Notes None recorded. Medical Equipment None Reported. Allergies Allergen ID Allergen Name Allergen Category Reaction Reaction Severity Criticality Documentation Date Start Date Code Code System Note Provider Name and Address Organization Details Recorded Time 17175 aspirin medicatio n other Not available Not available 07/13/2023 1191 RxNorm React ion: unkno wn, unspe cifie d;; Not Available [facility] 4 00:50:06 Medications Name Sig Start Date Stop Date Status Note LastModified by Organization Details LastModified Time cyclobenz aprine 10 mg tablet TAKE 1 TABLET BY MOUTH THREE TIMES A DAY active Not Available Not Available No t Available terazosin 5 mg capsule TAKE 1 CAPSULE BY MOUTH EVERYDAY AT BEDTIME active Not Available Not Available No t Available venlafaxi ne 75 mg tablet TAKE 1 TABLET BY MOUTH EVERY DAY active Not Available Not Available No t Available sildenafi l 50 mg tablet TAKE 1 TABLET BY MOUTH DAILY NEEDED FOR SEXUAL ACTIVITY . ADMINIST ER 30 MINUTES TO 4 HOURS BEFORE 08/16 completed Not Available Not Available Not Available atenolol 100 mg tablet 08/16 completed Medicati on ID: [id number] D uration Value: 90 Brand Name: atenolol Send Method: E-Prescr ibed Sub s Allowed: subs OK Medic ationGen ericName : atenolol Not Available Not Available Not Available diphenoxy late-atro pine 2.5 mg-0.025 mg tablet TAKE 1 TABLET ORALLY 4 TIMES A DAY NEEDED FOR DIARRHEA 08/16 completed Not Available Not Available Not Available guaifenes in 100 mg/5 mL oral liquid TAKE 30 ML BY MOUTH EVERY 6 HOURS FOR 10 DAYS. active Not Available Not Available No t Available ondansetr on 8 mg disintegr ating tablet PALCE 1 TABLET SUBLINGU ALLY EVERY 8 HOURS NEEDED FOR NAUSEA AND VOMITING 08/16 completed Not Available Not Available Not Available ascorbic acid (vitamin C) 500 mg tablet TAKE 2 TABLETS BY MOUTH EVERY DAY active Not Available Not Available No t Available oxycodone -acetamin ophen 10 mg-325 mg tablet TAKE 1 TABLET BY MOUTH EVERY 12 HOURS NEEDED FOR PAIN 08/16 completed Not Available Not Available Not Available dexametha sone 4 mg tablet TAKE 1 TABLET BY MOUTH TWICE A DAY FOR 2 DAYS AFTER CHEMO 08/16 completed Not Available Not Available Not Available minocycli ne 50 mg capsule TAKE 1 CAPSULE BY MOUTH DAILY 08/16 completed Not Available Not Available Not Available captopril 25 mg tablet TAKE 1 TABLET ORALLY 2 TIMES A DAY FOR 90 DAYS active Not Available Not Available No t Available docusate sodium 100 mg capsule 08/16 completed Medicati on ID: [id number] D uration Value: 15 Brand Name: docusate sodium S end Method: E-Prescr ibed Sub s Allowed: subs OK Speci al Instruct ion: TAKE 1 CAPSULE BY MOUTH TWICE A DAY Medi cationGe nericNam e: docusate sodium Not Available Not Available Not Available gabapenti n 300 mg capsule TAKE 1 CAPSULE BY MOUTH 3 TIMES A DAY active Not Available Not Available No t Available nystatin 100,000 unit/gram topical powder APPLY TOPICALL Y 3 TIMES A DAY UNTIL CLEAR 08/16 completed Not Available Not Available Not Available Viagra 100 mg tablet 08/16 completed Medicati on ID: [id number] D uration Value: 90 Brand Name: Viagra S end Method: E-Prescr ibed Sub s Allowed: subs OK Medic ationGen ericName : Viagra Not Available Not Available Not Available hydromorp cece 4 mg tablet TAKE 1 TABLET BY MOUTH TWICE A DAY NEEDED 08/16 completed Not Available Not Available Not Available sertralin e 50 mg tablet TAKE 1 TABLET BY MOUTH EVERY DAY active Not Available Not Available No t Available zolpidem ER 12.5 mg tablet,ex tended release,m ultiphase TAKE 1 TABLET BY MOUTH AT BEDTIME active Not Available Not Available No t Available cholecalc iferol (vitamin D3) 50 mcg (2,000 unit) capsule TAKE 1 CAPSULE BY MOUTH TWICE A DAY active Not Available Not Available No t Available Vitamin D3 50 mcg (2,000 unit) tablet TAKE 2 TABLETS (4,000 UNITS TOTAL) BY MOUTH DAILY. active Not Available Not Available No t Available Eliquis 2.5 mg tablet TAKE 1 TABLET BY MOUTH TWICE A DAY active Not Available Not Available No t Available Vitals Date Recorded Body height Body weight Provider Name and Address Organization Details Last Updated DateTime 08/16/2024 187.96 cm 621060.93 g Marva Blevins [place] [facility] 08/16/2024 14:19:30 Social History None recorded. Functional Status None recorded. Mental Status None recorded. Family History Nothing Reported. Medical History No medical history recorded. Past Encounters Encounter ID Performer Location Encounter Start Date Encounter Closed Date Diagnosis/Indication Diagnosis SNOMED-CT Code Diagnosis ICD10 Code Diagnosis IMO Codes Diagnosis Note [id number] DOMINIC HERNANDEZ MD [facility] [address] [id number] 08/16/2024 13:20:31 08/16/2024 16:47:31 Sensorineural hearing loss of bilateral ears 516145900 H90.3 67502022 Chronic rhinitis 9888743 6 J31.0 2545 Xerostomia 24815382 R68. 2 8024 Metastatic malignant neoplasm to lung 83901495 C18.9 C78.00 87532503 Finding of neck region 287819756 R22.1 594507 small pea sized nodule left preauricul ar region. Suggest observatio n in 6 months [id number] Katharina MATA [facility] [address] [address] 08/16/2024 14:03:30 08/17/2024 12:32:18 Sensorineural hearing loss of bilateral ears 186765132 H90.3 Audiologic al evaluation results: Right ear: Mild sloping to severe sensorineu ral hearing loss with good word recognitio n. Left ear: Mild sloping to severe sensorineu ral hearing loss with good word recognitio n. Tympanomet ry: Right Ear:Type A Left Ear:Type A Health Concerns Section Related Observation LastModified by Organization Detai ls LastModified Time None Recorded Concern Status LastModified by Organization Details LastModified Time None Recorded Advance Directives Directive None Recorded Payers Insurance Date Sequence Insurance Name Policy Number Policy Ochoa Covered Member ID Ochoa Member ID Guarantor Name 08/17/2024 1 BCBS-[place] BLUE [employer]IELD [id number] Nara Landisa [id number] Jeffery Marcus 08/16/2024 2 [place] Jeffery Marcus [id number] Jeffery Marcus 10/06/2024 1 [place] [id number] Nara Juddfta [id number] Jeffery Marcus 10/06/2024 2 [place] [facility] Jeffery Marcus [id number] Jeffery Marcus 05/31/2024 1 [facility] [id number] Jeffery Marcus [id number] Jeffery Marcus Notes Date Note Type Note Provider Name and Address Organization Details Recorded Time 08/16/2024 text/html Feels fullness left preauricular region, dry mouth, excess mucous for which he takes Mucinex. Being treated for colon CA with mets to liver and lung DOMINIC ISSA MD [address], [address], [facility] 08/16/2024 14:46:01 08/16/2024 text/html Audiological Evaluation HPIReported by PatientHearing LossFor hearing loss perceived, patient reportshearing loss in both ears (no differences noted between ears).Abnormal Auditory PerceptionFor abnormal auditory perceptions noted, patient reportsotalgia (left ear).Use of amplification or other hearing devicesFor use of amplification or other hearing devices, patient reportshearing aid use in both ears. Katharina MATA 100 [facility],[address], [address], [facility] 08/16/2024 14:05:22
--- OUTSIDE RECORDS SUMMARY | 2025-01-26 19:47 | XMS_ITS | Encounter Summary ---
Author Organization [facility] Address [address] [place] [address] Phone Care Team Providers Care Vb Net Programmer Name Role Phone Alban Abrams MD Primary Care Provider [phone] Self-Referred, Patient Unavailable Unavailab Jair Rodriguez MD, PhD Unavailable [phone] Jair Gonzalez MD, PhD Unavailable [phone] Raymon Norman MD Unavailable [phone] Shiloh Beck MD Unavailable [phone] Encounter Details Date Type Department Care Team (Late st Contact Info) Description 11/11/2022 Procedure Pass [facility] [address] [place] [address] Social History Tobacco Use Types Packs/Day Years [...] Pass [facility] Imaging Department, [facility], [place] [address] [facility], Floor [address]1 [place] [address] 10/12/2024 Procedure Pass [facility] Imaging Department, [facility], [place] [address] [facility], Floor [address]1 [place] [address] 03/08/2025 8:50 AM EST Blood Draw Laboratory Services, [facility] [place] 300 [facility] 3rd [place] [address] Jair Gonzalez MD, PhD [address] [place] [phone] [email or web address] 03/08/2025 10:40 AM EST Appointment [facility] Imaging Department, [facility], [place] [address] [facility], [facility] L1 [place] [address] Jair Gonzalez MD, PhD [address] [place] [phone] [email or web address] 03/08/2025 2:00 PM EST Office Visit [facility], [address], 10th [place] [address] Jair Gonzalez MD, PhD [address] [place] [phone] [email or web address] documented as of this encounter Visit Diagnoses Not on filedocumented in this encounter Care Teams Vb Net Programmer Relationship Specialty Start Date End Date Alban Abrams MD [address] [place] [address] [address] PCP - General Internal Medicine 02/17/17 Self-Referred, Patient Referring Physician 02/17/17 Jair Gonzalez MD, PhD [address] [place] [address] [email or web address] Primary Oncologist Oncology 02/17/17 Jair Gonzalez MD, PhD [address] [place] [address] [email or web address] Primary Oncologist Oncology 02/17/17 Raymon Norman MD [address] [place] [address] [email or web address] Primary Oncologist Surgical Oncology 03/17/17 Shiloh Beck MD [address] [place] [address] [email or web address] [email or web address] Hematology and Oncology 12/30/17 documented as of this encounter Additional Source Comments The information contained in this document represents components of the legal health record. It is not the complete legal health record.[facility]
--- OUTSIDE RECORDS SUMMARY | 2025-01-26 19:47 | XMS_ITS | Encounter Summary ---
Author Organization [facility] Address [address] [place] [address] Phone Care Team Providers Care Computer Systems Security Administrator Name Role Phone Alban Abrams MD Primary Care Provider [phone] Self-Referred, Patient Unavailable Unavailab Jair Rodriguez MD, PhD Unavailable [phone] Jair Gonzalez MD, PhD Unavailable [phone] Raymon Norman MD Unavailable [phone] Shiloh Beck MD Unavailable Encounter Details Date Type Department Care Team (Late st Contact Info) Description 11/13/2022 Procedure Pass [facility], [facility] [place], [place] [address] [facility], Floor [address]1 [place] [address] Social History Tobacco Use Types Packs/Day Years [...] Pass [facility] Imaging Department, [facility], [place] [address] [facility], Floor [address]1 [place] [address] 10/12/2024 Procedure Pass [facility] Imaging Department, [facility], [place] [address] [facility], Floor [address]1 [place] [address] 03/08/2025 8:50 AM EST Blood Draw Laboratory Services, [facility] [place] 300 [facility] 3rd [place] [address] Jair Gonzalez MD, PhD [address] [place] [phone] [email or web address] 03/08/2025 10:40 AM EST Appointment [facility] Imaging Department, [facility], [place] [address] [facility], Floor [address]1 [place] [address] Jair Gonzalez MD, PhD [address] [place] [phone] [email or web address] 03/08/2025 2:00 PM EST Office Visit [facility], [address], 10th [place] [address] Jair Gonzlaez MD, PhD [address] [place] [phone] [email or web address] documented as of this encounter Visit Diagnoses Not on filedocumented in this encounter Care Teams Computer Systems Security Administrator Relationship Specialty Start Date End Date Alban Abrams MD [address] [place] [address] [address] PCP - General Internal Medicine 02/17/17 Self-Referred, Patient Referring Physician 02/17/17 Jair Gonzalez MD, PhD [address] [place] [phone] [email or web address] Primary Oncologist Oncology 02/17/17 Jair Gonzalez MD, PhD [address] [place] [phone] [email or web address] Primary Oncologist Oncology 02/17/17 Raymon Norman MD [address] [place] [address] [email or web address] Primary Oncologist Surgical Oncology 03/17/17 Shiloh Beck MD [address] [place] [address] [email or web address] Hematology and Oncology 12/30/17 documented as of this encounter Additional Source Comments The information contained in this document represents components of the legal health record. It is not the complete legal health record.[facility]
--- OUTSIDE RECORDS SUMMARY | 2025-01-26 19:47 | XMS_ITS | Encounter Summary ---
Author Organization [facility] Address [address] [facility] [address] [place] [address] Phone Care Team Providers Care Coin Box Collector Name Role Phone Alban Abrams MD Primary Care Provider [phone] Self-Referred, Patient Unavailable Unavailab Jair Rodriguez MD, PhD Unavailable [phone] Jair Gonzalez MD, PhD Unavailable [phone] Raymon Norman MD Unavailable [phone] Shiloh Beck MD Unavailable [phone] Encounter Details Date Type Department Care Team (Late st Contact Info) Description 02/09/2023 Procedure Pass [facility] Periop 75 [place] [address] Social History Tobacco Use Types Packs/Day Years [...] 02/09/2023 6:00 PM Ruth Cool RN * [place] Suicide Severity Rating Scale (Screener/Recent Self-Report) Question [...] [facility] Imaging Department, [facility], [place] [address] [facility], Floor [address]1 [place] [address] 10/12/2024 Procedure Pass [facility] Imaging Department, [facility] [place] [address] [facility], Floor [address] [place] [address] 03/08/2025 8:50 AM EST Blood Draw Laboratory Services, [facility] [place] [facility] [place] 300 [facility] 3rd [place] [address] Jair Gonzalez MD, PhD 450 [place] [address] [email or web address] 03/08/2025 10:40 AM EST Appointment [facility] Imaging Department, [facility], [place] [address] [facility], Floor [address] [address] Jair Gonzalez MD, PhD [address] [place] [phone] [email or web address] 03/08/2025 2:00 PM EST Office [facility] [address], 10th [place] [address] Jair Gonzalez MD, PhD [address] [place] [phone] [email or web address] documented as of this encounter Visit Diagnoses Not on filedocumented in this encounter Care Teams Coin Box Collector Relationship Specialty Start Date End Date Alban Abrams MD [address] [place] [address] [place] [address] PCP - General Internal Medicine 02/17/17 Self-Referred, Patient Referring Physician 02/17/17 Jair Gonzalez MD, PhD [address] [place] [phone] [email or web address] Primary Oncologist Oncology 02/17/17 Jair Gonzalez MD, PhD [address] [place] [phone] [email or web address] Primary Oncologist Oncology 02/17/17 Raymon Norman MD [address] [place] [phone] [email or web address]. [email or web address] Primary Oncologist Surgical Oncology 03/17/17 Shiloh Beck MD [address] [place] [address] [email or web address] Hematology and Oncology 12/30/17 documented as of this encounter Additional Source Comments The information contained in this document represents components of the legal health record. It is not the complete legal health record.[facility]
--- OUTSIDE RECORDS SUMMARY | 2025-01-26 19:47 | XMS_ITS | Encounter Summary ---
Author Organization [facility] Address [address] [facility] [address] [place] [address] Phone Care Team Providers Care Geological Technician Name Role Phone Alban Abrams MD Primary Care Provider [phone] Self-Referred, Patient Unavailable Unavailab Jair Rodriguez MD, PhD Unavailable [phone] Jair Gonzalez MD, PhD Unavailable [phone] Raymon Norman MD Unavailable [phone] Shiloh Beck MD Unavailable [phone] Encounter Details Date Type Department Care Team (Late st Contact Info) Description 01/16/2021 Procedure Pass [facility] Imaging Department, [facility] [place], [place] [address] [facility], Floor [address]1 [place] [address] Social History Tobacco Use Types Packs/Day Years [...] st Contact Info) Description 10/12/2024 Procedure Pass [facility] Imaging Department, [facility], [place] [address] [facility], Floor [address]1 [place] [address] 10/12/2024 Procedure Pass [facility] Imaging Department, [facility] [place] [address] [facility], Floor [address]1 [place] [address] 03/08/2025 8:50 AM EST Blood Draw Laboratory Services, [facility] [place] 300 [facility] 3rd [place] [address] Jair Gonzalez MD, PhD [address] [place] [phone] [email or web address] 03/08/2025 10:40 AM EST Appointment [facility] Imaging Department, [facility], [place] [address] [facility], Floor [address]1 [place] [address] Jair Gonzalez MD, PhD [address] [place] [phone] [email or web address] 03/08/2025 2:00 PM EST Office Visit [facility], [address], 10th [place] [address] Jair Gonzalez MD, PhD [address] [place] [phone] [email or web address] [email or web address] documented as of this encounter Visit Diagnoses Not on filedocumented in this encounter Care Teams Geological Technician Relationship Specialty Start Date End Date Alban Abrams MD [address] [place] [address] [place] [address] PCP - General Internal Medicine 02/17/17 Self-Referred, Patient Referring Physician 02/17/17 Jair Gonzalez MD, PhD [address] [place] [phone] [email or web address] Primary Oncologist Oncology 02/17/17 Jair Gonzalez MD, PhD [address] [place] [phone] [email or web address] Primary Oncologist Oncology 02/17/17 Raymon Norman MD [address] [place] [phone] [email or web address] Primary Oncologist Surgical Oncology 03/17/17 Shiloh Beck MD [address] [place] [address] [email or web address] Hematology and Oncology 12/30/17 documented as of this encounter Additional Source Comments The information contained in this document represents components of the legal health record. It is not the complete legal health record.[facility]
--- OUTSIDE RECORDS SUMMARY | 2025-01-26 19:47 | XMS_ITS | Encounter Summary ---
Author Organization [facility] Address [address] [place] [address] Phone Care Team Providers Care Sales Agent Fire Insurance Name Role Phone Alban Abrams MD Primary Care Provider [phone] Self-Referred, Patient Unavailable Unavailab Jair Rodriguez MD, PhD Unavailable [phone] Jair Gonzalez MD, PhD Unavailable [phone] Raymon Norman MD Unavailable [phone] Shiloh Beck MD Unavailable [phone] Encounter Details Date Type Department Care Team (Late st Contact Info) Description 08/11/2023 Procedure Pass [facility] [address] [place] [address] Social History Tobacco Use Types Packs/Day Years [...] 10/12/2024 Procedure Pass [facility] Imaging [facility], [facility], [place] [address] [facility], Floor [address]1 [place] [address] 10/12/2024 Procedure Pass [facility] Imaging Department, [facility], [place] [address] [facility], Floor [address]1 [place] [address] 03/08/2025 8:50 AM EST Blood Draw Laboratory Services, [facility] [address] [facility] 3rd [place] [address] Jair Gonzalez MD, PhD [address] [place] [phone] [email or web address] 03/08/2025 10:40 AM EST Appointment [facility] Imaging Department, [facility], [place] [address] [facility], Floor [address]1 [place] [address] Jair Gonzalez MD, PhD [address] [place] [address] Samm@[email or web address] 03/08/2025 2:00 PM EST Office Visit [facility], [address], 10th [place] [address] Jair Gonzalez MD, PhD [address] [place] [address] Samm@d [email or web address] documented as of this encounter Visit Diagnoses Not on filedocumented in this encounter Care Teams Sales Agent Fire Insurance Relationship Specialty Start Date End Date Alban Abrams MD [address] [place] [address] [address] PCP - General Internal Medicine 02/17/17 Self-Referred, Patient Referring Physician 02/17/17 Jair Gonzalze MD, PhD [address] [place] [phone] [email or web address] Primary Oncologist Oncology 02/17/17 Jair Gonzalez MD, PhD [address] [place] [phone] [email or web address] Primary Oncologist Oncology 02/17/17 Raymon Norman MD [address] [place] [phone] [email or web address] Primary Oncologist Surgical Oncology 03/17/17 Shiloh Beck MD [address] [place] [phone] [email or web address] Hematology and Oncology 12/30/17 documented as of this encounter Additional Source Comments The information contained in this document represents components of the legal health record. It is not the complete legal health record.[facility]
--- OUTSIDE RECORDS SUMMARY | 2025-01-26 19:47 | XMS_ITS | Encounter Summary ---
Author Organization [facility] Address [address] [place] [address] Phone Care Team Providers Care Bindery Manager Name Role Phone Alban Abrams MD Primary Care Provider [phone] Self-Referred, Patient Unavailable Unavailab Jair Rodriguez MD, PhD Unavailable [phone] Jair Gonzalez MD, PhD Unavailable [phone] Raymon Norman MD Unavailable [phone] Shiloh Beck MD Unavailable [phone] Encounter Details Date Type Department Care Team (Late Contact Info) Description 03/13/2021 Procedure Pass [facility] Periop 75 [place] [address] Social History Tobacco Use Types Packs/Day Years [...] st Contact Info) Description 10/12/2024 [facility], [facility], [place] [address] [facility], Floor [address]1 [place] [address] 10/12/2024 [facility], [facility] [place] [address] [facility], Floor [address]1 [place] [address] 03/08/2025 8:50 AM EST Blood Draw Laboratory Services, [facility] [place] [address] [facility] 3rd [place] [address] Jair Gonzalez MD, PhD [address] [place] [phone] Samm@d [email or web address] 03/08/2025 10:40 AM EST Appointment [facility] Imaging Department, [facility], [place] [address] [facility], Floor [address]1 [place] [address] Jair Gonzalez MD, PhD [address] [place] [phone] [email or web address] [email or web address] 03/08/2025 2:00 PM EST Office Visit [facility], [address], 10th [place] [address] Jair Gonzalez MD, PhD [address] [place] [phone] [email or web address] [email or web address] documented as of this encounter Visit Diagnoses Not on filedocumented in this encounter Care Teams Bindery Manager Relationship Specialty Start Date End Date Alban Abrams MD [address] [place] [address] [place] [address] PCP - General Internal Medicine 02/17/17 Self-Referred, Patient Referring Physician 02/17/17 Jair Gonzalez MD, PhD [address] [place] [phone] [email or web address] Primary Oncologist Oncology 02/17/17 Jair Gonzalez MD, PhD [address] [place] [address] [email or web address] Primary Oncologist Oncology 02/17/17 Raymon Norman MD [address] [place] [address] [email or web address] Primary Oncologist Surgical Oncology 03/17/17 Shiloh Beck MD [address] [place] [address] [email or web address] Hematology and Oncology 12/30/17 documented as of this encounter Additional Source Comments The information contained in this document represents components of the legal health record. It is not the complete legal health record.[facility]
--- OUTSIDE RECORDS SUMMARY | 2025-01-26 19:47 | XMS_ITS | Encounter Summary ---
Author Organization [facility] Address [address] [place] [address] Phone Care Team Providers Care Lawn Mower Name Role Phone Alban Abrams MD Primary Care Provider [phone] Self-Referred, Patient Unavailable Unavailab Jair Rodriguez MD, PhD Unavailable [phone] Jair Gonzalez MD, PhD Unavailable [phone] Raymon Norman MD Unavailable [phone] Shiloh Beck MD Unavailable Encounter Details Date Type Department Care Team (Late st Contact Info) Description 03/18/2023 Procedure Pass [facility] Work[facility] [place] [address] [place] [address] Social History Tobacco Use Types Packs/Day Years [...] st Contact Info) Description 10/12/2024 Procedure Pass [facility] Imaging Department, [facility], [place] [address] [facility], Floor L1 [place] [address] 10/12/2024 Procedure Pass [facility] Imaging Department, [facility], [place] [address] [facility], Floor [address]1 [place] [address] 03/08/2025 8:50 AM EST Blood Draw Laboratory Services, [facility] [place] [address] [facility] 3rd [place] [address] Jair Gonzalez MD, PhD [address] [place] [phone] Samm@d [email or web address] 03/08/2025 10:40 AM EST Appointment [facility] Imaging Department, [facility], [place] [address] [facility], Floor [address]1 [place] [address] Jair Gonzalez MD, PhD [address] [place] [phone] Samm@d [email or web address] 03/08/2025 2:00 PM EST Office Visit [facility], [address], 10th [place] [address] Jair Gonzalez MD, PhD [address] [place] [phone] Samm@d [email or web address] documented as of this encounter Visit Diagnoses Not on filedocumented in this encounter Care Teams Lawn Mower Relationship Specialty Start Date End Date Alban Abrams MD [address] [place] [address] [address] PCP - General Internal Medicine 02/17/17 Self-Referred, Patient Referring Physician 02/17/17 Jair Gonzalez MD, PhD [address] [place] [address] [email or web address] Primary Oncologist Oncology 02/17/17 Jair Gonzalez MD, PhD [address] [place] [phone] Samm@[email or web address] Primary Oncologist Oncology 02/17/17 Raymon Norman MD [address] [place] [address] [email or web address] Primary Oncologist Surgical Oncology 03/17/17 Shiloh Beck MD [address] [place] [phone] [email or web address] Hematology and Oncology 12/30/17 documented as of this encounter Additional Source Comments The information contained in this document represents components of the legal health record. It is not the complete legal health record.[facility]
--- OUTSIDE RECORDS SUMMARY | 2025-01-26 19:47 | XMS_ITS | Encounter Summary ---
Author Organization [facility] Address [address] [place] [address] Phone Care Team Providers Care Student Outreach Coordinator Name Role Phone Alban Abrams MD Primary Care Provider [phone] Self-Referred, Patient Unavailable Unavailab Jair Rodriguez MD, PhD Unavailable [phone] Jair Gonzalez MD, PhD Unavailable [phone] Raymon Norman MD Unavailable [phone] Shiloh Beck MD Unavailable [phone] Encounter Details Date Type Department Care Team (Late st Contact Info) Description 07/15/2023 Procedure Pass [facility] [place] [place] [address] [facility], Floor [address] [place] [address] Social History Tobacco Use Types Packs/Day Years [...] st Contact Info) Description 10/12/2024 Procedure Pass [facility] Imaging Department, [facility] [place] [address] [facility], Floor [address] [place] [address] 10/12/2024 Procedure Pass [facility] Imaging Department, [facility] [place] [address] [facility], Floor [address]1 [place] [address] 03/08/2025 8:50 AM EST Blood Draw Laboratory Services, [facility] [place] [address] [facility] 3rd [place] [address] Jair Gonzalez MD, PhD [address] [place] [phone] [email or web address] 03/08/2025 10:40 AM EST Appointment [facility] Imaging Department, [facility] [address] [facility], Floor [address]1 [place] [address] Jair Gonzalez MD, PhD [address] [place] [phone] [email or web address] 03/08/2025 2:00 PM EST Office Visit [facility], [address], 10th [place] [address] Jair Gonzalez MD, PhD [address] [place] [phone] Samm@d [facility] documented as of this encounter Visit Diagnoses Not on filedocumented in this encounter Care Teams Student Outreach Coordinator Relationship Specialty Start Date End Date Alban Abrams MD [address] [place] [address] [address] PCP - General Internal Medicine 02/17/17 Self-Referred, Patient Referring Physician 02/17/17 Jair Gonzalez MD, PhD [address] [place] [phone] Samm@[email or web address] Primary Oncologist Oncology 02/17/17 Jair Gonzalez MD, PhD [address] [place] [phone] Samm@[email or web address] Primary Oncologist Oncology 02/17/17 Raymon Norman MD [address] [place] [phone] [email or web address] Primary Oncologist Surgical Oncology 03/17/17 Shiloh Beck MD [address] [place] [phone] [email or web address] Hematology and Oncology 12/30/17 documented as of this encounter Additional Source Comments The information contained in this document represents components of the legal health record. It is not the complete legal health record.[facility]
--- OUTSIDE RECORDS SUMMARY | 2025-01-26 19:47 | XMS_ITS | Encounter Summary ---
Author Organization [facility] Address [address] [facility] [address] [place] [address] Phone Care Team Providers Care Geography Professor Name Role Phone Alban Abrams MD Primary Care Provider [phone] Self-Referred, Patient Unavailable Unavailab Jair Rodriguez MD, PhD Unavailable [phone] Jair Gonzalez MD, PhD Unavailable [phone] Raymon Norman MD Unavailable [phone] Shiloh Beck MD Unavailable Encounter Details Date Type Department Care Team (Late st Contact Info) Description 10/24/2020 Procedure Pass [facility] [place] [facility] [place] [address] [facility] 3rd [place] [address] Social History Tobacco Use Types Packs/Day Years [...] Pass [facility] Imaging Department, [facility], [place] [address] [facility], Floor [address]1 [place] [address] 10/12/2024 Procedure Pass [facility] Imaging Department, [facility] [place] [address] [facility], Floor [address]1 [place] [address] 03/08/2025 8:50 AM EST Blood Draw Laboratory Services, [facility] [place] [address] [facility] 3rd [place] [address] Jair Gonzalez MD, PhD [address] [place] [phone] [email or web address] 03/08/2025 10:40 AM EST Appointment [facility] Imaging Department, [facility] [address] [facility], Floor [address]1 [place] [address] Jair Gonzalez MD, PhD [address] [place] [phone] Samm@d [email or web address] 03/08/2025 2:00 PM EST Office Visit [facility], [address], 10th [place] [address] Jair Gonzalez MD, PhD [address] [place] [phone] [email or web address] documented as of this encounter Visit Diagnoses Not on filedocumented in this encounter Care Teams Geography Professor Relationship Specialty Start Date End Date Alban Abrams MD [address] [place] [address] [place] [address] PCP - General Internal Medicine 02/17/17 Self-Referred, Patient Referring Physician 02/17/17 Jair Gonzalez MD, PhD [address] [place] [phone] [email or web address] Primary Oncologist Oncology 02/17/17 Jair Gonzalez MD, PhD [address] [place] [phone] [email or web address] Primary Oncologist Oncology 02/17/17 Raymon Norman MD [address] [place] [phone] [email or web address] Primary Oncologist Surgical Oncology 03/17/17 Shiloh Beck MD [address] [place] [address] [email or web address] Hematology and Oncology 12/30/17 documented as of this encounter Additional Source Comments The information contained in this document represents components of the legal health record. It is not the complete legal health record.[facility]
--- OUTSIDE RECORDS SUMMARY | 2025-01-26 19:47 | XMS_ITS | Encounter Summary ---
Author Organization [facility] Address [address] [facility] [address] [place] [address] Phone Care Team Providers Care Main Entree Cook And Cashier Name Role Phone Alban Abrams MD Primary Care Provider [phone] Self-Referred, Patient Unavailable Unavailab Jair Rodriguez MD, PhD Unavailable [phone] Jair Gonzalez MD, PhD Unavailable [phone] Raymon Norman MD Unavailable [phone] Shiloh Beck MD Unavailable [phone] Encounter Details Date Type Department Care Team (Late st Contact Info) Description 03/11/2017 Procedure Pass [facility] OUTSIDE IMG 450 [place] [address] Social History Tobacco Use Types Packs/Day Years [...] Pass [facility] Imaging Department, [facility] [place] [address] [facility], Floor L1 [place] [address] 10/12/2024 Procedure Pass [facility], [facility] [place] [address] [facility], Floor L1 [place] [address] 03/08/2025 8:50 AM EST Blood Draw Laboratory Services, [facility] [address] [facility] 3rd [place] [address] Jair Gonzalez MD, PhD [address] [place] [phone] Samm@d [email or web address] 03/08/2025 10:40 AM EST Appointment [facility] Imaging Department, [facility] [place] [address] [facility], Floor L1 [place] [address] Jair Gonzalez MD, PhD [address] [place], [place] [phone] Samm@d [email or web address] 03/08/2025 2:00 PM EST Office Visit [facility], [address], 10th [place] [address] Jair Gonzalez MD, PhD [address] [place] [phone] Samm@d [email or web address] documented as of this encounter Visit Diagnoses Not on filedocumented in this encounter Care Teams Main Entree Cook And Cashier Relationship Specialty Start Date End Date Alban Abrams MD [address] [place] [address] [place] [address] PCP - General Internal Medicine 02/17/17 Self-Referred, Patient Referring Physician 02/17/17 Jair Gonzalez MD, PhD [address] [place] [phone] [email or web address] Primary Oncologist Oncology 02/17/17 Jair Gonzalez MD, PhD [address] [place] [phone] [email or web address] Primary Oncologist Oncology 02/17/17 Raymon Norman MD [address] [place] [phone] [email or web address]. u Primary Oncologist Surgical Oncology 03/17/17 Shiloh Beck MD [address] [place] [phone] [email or web address] Hematology and Oncology 12/30/17 documented as of this encounter Additional Source Comments The information contained in this document represents components of the legal health record. It is not the complete legal health record.[facility]
--- OUTSIDE RECORDS SUMMARY | 2025-01-26 19:47 | XMS_ITS | Encounter Summary ---
Author Organization [facility] Address [address] [facility] [address] [place] [address] Phone Care Team Providers Care Cigarette And Filter Chief Inspector Name Role Phone Alban Abrams MD Primary Care Provider [phone] Self-Referred, Patient Unavailable Unavailab Jair Rodriguez MD, PhD Unavailable [phone] Jair Gonzalez MD, PhD Unavailable [phone] Raymon Norman MD Unavailable [phone] Shiloh Beck MD Unavailable Encounter Details Date Type Department Care Team (Late Contact Info) Description 04/16/2017 Procedure Pass [facility] Periop [address] [place] [address] Social History Tobacco Use Types Packs/Day Years [...] st Contact Info) Description 10/12/2024 Procedure Pass [facility] Imaging Department, [facility] [place] [address] [facility], Floor L1 [place] [address] 10/12/2024 Procedure Pass [facility] Imaging Department, [facility] [place] [address] [facility], Floor L1 [place] [address] 03/08/2025 8:50 AM EST Blood Draw Laboratory Services, [facility] [place] 300 [facility] 3rd [place] [address] Jair Gonzalez MD, PhD [address] [place] [phone] Samm@d [email or web address] 03/08/2025 10:40 AM EST Appointment [facility] Imaging Department, [facility] [address] [facility], Floor L1 [place] [address] Jair Gonzalez MD, PhD [address] [place] [phone] Samm@d [email or web address] 03/08/2025 2:00 PM EST Office Visit [facility], [address], 10th [place] [address] Jair Gonzalez MD, PhD [address] [place] [phone] Samm@d [email or web address] documented as of this encounter Visit Diagnoses Not on filedocumented in this encounter Care Teams Cigarette And Filter Chief Inspector Relationship Specialty Start Date End Date Alban Abrams MD [address] [place] [address] [place] [address] PCP - General Internal Medicine 02/17/17 Self-Referred, Patient Referring Physician 02/17/17 Jair Gonzalez MD, PhD [address] [place] [address] [email or web address] Primary Oncologist Oncology 02/17/17 Jair Gonzalez MD, PhD [address] [place] [phone] [email or web address] Primary Oncologist Oncology 02/17/17 Raymon Norman MD [address] [place] [address] [email or web address] u Primary Oncologist Surgical Oncology 03/17/17 Shiloh Beck MD [address] [place] [phone] [email or web address] Hematology and Oncology 12/30/17 documented as of this encounter Additional Source Comments The information contained in this document represents components of the legal health record. It is not the complete legal health record.[facility]
--- OUTSIDE RECORDS SUMMARY | 2025-01-26 19:47 | XMS_ITS | Encounter Summary ---
Author Organization [facility] Address [address] [facility] [address] [place] [address] Phone Care Team Providers Care Linen Aide Name Role Phone Alban Abrams MD Primary Care Provider [phone] Self-Referred, Patient Unavailable Unavailab Jair Rodriguez MD, PhD Unavailable [phone] Jair Gonzalez MD, PhD Unavailable [phone] Raymon Norman MD Unavailable [phone] Shiloh Beck MD Unavailable [phone] Encounter Details Date Type Department Care Team (Late Contact Info) Description 05/25/2017 Procedure Pass [facility] Imaging, [place] [address] [place] [address] Social History Tobacco Use Types Packs/Day Years [...] st Contact Info) Description 10/12/2024 [facility] [place] [address] [facility], Floor [address] [place] [address] 10/12/2024 [facility], [facility] [place] [address] [facility], Floor [address] [place] [address] 03/08/2025 8:50 AM EST Blood Draw Laboratory Services, [facility] [place] [address] [facility] 3rd [place] [address] Jair Gonzalez MD, PhD [address] [place] [phone] [email or web address] 03/08/2025 10:40 AM EST Appointment [facility] Imaging Department, [facility] [place] [address] [facility], Floor [address] [place] [address] Jair Gonzalez MD, PhD [address] [place] [phone] [email or web address] 03/08/2025 2:00 PM EST Office Visit [facility], [address], 10th [place] [address] Jair Gonzalez MD, PhD [address] [place] [phone] [email or web address] documented as of this encounter Visit Diagnoses Not on filedocumented in this encounter Care Teams Linen Aide Relationship Specialty Start Date End Date Alban Abrams MD [address] [place] [address] [place] [address] PCP - General Internal Medicine 02/17/17 Self-Referred, Patient Referring Physician 02/17/17 Jair Gonzalez MD, PhD [address] [place] [address] [email or web address] Primary Oncologist Oncology 02/17/17 Jair Gonzalez MD, PhD [address] [place] [phone] [email or web address] Primary Oncologist Oncology 02/17/17 Raymon Norman MD [address] [place] [phone] [email or web address] Primary Oncologist Surgical Oncology 03/17/17 Shiloh Beck MD [address] [place] [phone] [email or web address] 12/30/17 documented as of this encounter Additional Source Comments The information contained in this document represents components of the legal health record. It is not the complete legal health record.[facility]
--- OUTSIDE RECORDS SUMMARY | 2025-01-26 19:47 | XMS_ITS | Encounter Summary ---
Author Organization [facility] Address [address] [place] [address] Phone Care Team Providers Care Drying Supervisor Name Role Phone Alban Abrams MD Primary Care Provider [phone] Self-Referred, Patient Unavailable Unavailab Jair Rodriguez MD, PhD Unavailable [phone] Jair Gonzalez MD, PhD Unavailable [phone] Raymon Norman MD Unavailable [phone] Shiloh Beck MD Unavailable [phone] Encounter Details Date Type Department Care Team (Late st Contact Info) Description 12/22/2022 Procedure Pass [facility] [address] [place] [address] Social History Tobacco Use Types Packs/Day Years [...] Description 10/12/2024 Procedure Pass [facility] Imaging Department, [facility] [place] [address] [facility], Floor [address]1 [place] [address] 10/12/2024 Procedure Pass [facility] Imaging Department, [facility], [place] [address] [facility], Floor [address] [place] [address] 03/08/2025 8:50 AM EST Blood Draw Laboratory Services, [facility] [place] [address] [facility] 3rd [place] [address] Jair Gonzalez MD, PhD [address] [place] [phone] [email or web address] 03/08/2025 10:40 AM EST Appointment [facility] Imaging Department, [facility], [place] [address] [facility], [facility] [address] [place] [address] Jair Gonzalez MD, PhD [address] [place] [phone] [email or web address] 03/08/2025 2:00 PM EST Office Visit [facility], [address], 10th [place] [address] Jair Gonzalez MD, PhD [address] [place] [phone] [email or web address] documented as of this encounter Visit Diagnoses Not on filedocumented in this encounter Care Teams Drying Supervisor Relationship Specialty Start Date End Date Alban Abrams MD [address] [place] [address] [address] PCP - General Internal Medicine 02/17/17 Self-Referred, Patient Referring Physician 02/17/17 Jair Gonzalez MD, PhD [address] [place] [phone] [email or web address] Primary Oncologist Oncology 02/17/17 Jair Gonzalez MD, PhD [address] [place] [phone] [email or web address] Primary Oncologist Oncology 02/17/17 Raymon Norman MD [address] [place] [phone] [email or web address] Primary Oncologist Surgical Oncology 03/17/17 Shiloh Beck MD [address] [place] [phone] [email or web address] 12/30/17 documented as of this encounter Additional Source Comments The information contained in this document represents components of the legal health record. It is not the complete legal health record.[facility]
--- OUTSIDE RECORDS SUMMARY | 2025-01-26 19:47 | XMS_ITS | Encounter Summary ---
Author Organization [facility] Address [address] [facility] [address] [place] [address] Phone Care Team Providers Care Laminated Plastics Assembler And Gluer Name Role Phone Alban Abrams MD Primary Care Provider [phone] Self-Referred, Patient Unavailable Unavailab Jair Rodriguez MD, PhD Unavailable [phone] Jair Gonzalez MD, PhD Unavailable [phone] Raymon Norman MD Unavailable [phone] Shiloh Beck MD Unavailable [phone] Encounter Details Date Type Department Care Team (Late st Contact Info) Description 06/12/2021 Procedure Pass [facility] [facility] [place] [address] [facility] 3rd [place] [address] Social History Tobacco Use Types Packs/Day Years [...] [facility] Imaging Department, [facility], [place] [address] [facility], Floor [address] [place] [address] 10/12/2024 Procedure Pass [facility] Imaging Department, [facility] [place] [address] [facility], Floor [address] [place] [address] 03/08/2025 8:50 AM EST Blood Draw Laboratory Services, [facility] [place] [address] [facility] 3rd [place] [address] Jair Gonzalez MD, PhD [address] [place] [place] [phone] [email or web address] 03/08/2025 10:40 AM EST Appointment [facility] Imaging Department, [facility] [place] [address] [facility], Floor [address] [place] [address] Jair Gonzalez MD, PhD [address] [place] [place] [phone] [email or web address] 03/08/2025 2:00 PM EST Office Visit [facility], [address], 10th [place] [address] Jair Gonzalez MD, PhD [address] [place] [place] [phone] [email or web address] documented as of this encounter Visit Diagnoses Not on filedocumented in this encounter Care Teams Laminated Plastics Assembler And Gluer Relationship Specialty Start Date End Date Alban Abrams MD [address] [place] [address] [place] [address] PCP - General Internal Medicine 02/17/17 Self-Referred, Patient Referring Physician 02/17/17 Jair Gonzalez MD, PhD [address] [place] [place] [phone] [email or web address] Primary Oncologist Oncology 02/17/17 Jair Gonzalez MD, PhD [address] [place] [place] [phone] [email or web address] Primary Oncologist Oncology 02/17/17 Raymon Norman MD [address] [place] [phone] [email or web address] Primary Oncologist Surgical Oncology 03/17/17 Shiloh Beck MD [address] [place] [address] [email or web address] [email or web address] 12/30/17 documented as of this encounter Additional Source Comments The information contained in this document represents components of the legal health record. It is not the complete legal health record.[facility]
--- OUTSIDE RECORDS SUMMARY | 2025-01-26 19:47 | XMS_ITS | Encounter Summary ---
Author Organization [facility] Address [address] [facility] [address] [place] [address] Phone Care Team Providers Care Assistant Professor Of Surgery Name Role Phone Alban Abrams MD Primary Care Provider [phone] Self-Referred, Patient Unavailable Unavailab Jair Rodriguez MD, PhD Unavailable [phone] Jair Gonzalez MD, PhD Unavailable [phone] Raymon Norman MD Unavailable [phone] Shiloh Beck MD Unavailable [phone] Encounter Details Date Type Department Care Team (Late st Contact Info) Description 01/16/2021 Procedure Pass [facility] Imaging Department, [facility] [place] [place] [address] [facility], Floor [address]1 [place] [address] Social History Tobacco Use Types Packs/Day Years [...] st Contact Info) Description 10/12/2024 Procedure Pass [facility] Imaging Department, [facility] [place] [address] [facility], Floor [address] [place] [address] 10/12/2024 Procedure Pass [facility] Imaging Department, [facility] [place] [address] [facility], Floor [address] [place] [address] 03/08/2025 8:50 AM EST Blood Draw Laboratory Services, [facility] [place] [address] [facility] 3rd [place] [address] Jair Gonzalez MD, PhD [address] [place] [phone] [email or web address] 03/08/2025 10:40 AM EST Appointment [facility] Imaging Department, [facility] [place] [address] [facility], Floor [address] [place] [address] Jair Gonzalez MD, PhD [address] [place] [phone] [email or web address] 03/08/2025 2:00 PM EST Office Visit [facility], [address], 10th [place] [address] Jair Gonzalez MD, PhD [address] [place] [phone] [email or web address] documented as of this encounter Visit Diagnoses Not on filedocumented in this encounter Care Teams Assistant Professor Of Surgery Relationship Specialty Start Date End Date Alban Abrams MD [address] [place] [address] [place] [address] PCP - General Internal Medicine 02/17/17 Self-Referred, Patient Referring Physician 02/17/17 Jair Gonzalez MD, PhD [address] [place] [phone] [email or web address] Primary Oncologist Oncology 02/17/17 Jair Gonzalez MD, PhD [address] [place] [phone] [email or web address] Primary Oncologist Oncology 02/17/17 Raymon Norman MD [address] [place] [phone] [email or web address] Primary Oncologist Surgical Oncology 03/17/17 Shiloh Beck MD [address] [place] [phone] [email or web address] [facility] 12/30/17 documented as of this encounter Additional Source Comments The information contained in this document represents components of the legal health record. It is not the complete legal health record.[facility]
--- OUTSIDE RECORDS SUMMARY | 2025-01-26 19:47 | XMS_ITS | Data Portability ---
Author Organization [facility] Eponym [facility], [place], Main Office Address [address], [address] [place] [address] Care Team Providers Care Air Tool Operator Name Role Phone BEREKET SURESH - 2ND FLOOR OTHER BERTHA BARRY Primary Care Provider Assessment No assessment recorded. Plan of Treatment Reminders Order Date Submit Date Provider Last Modified By Organization Details Last Modified Time Details Appointments None recorded. Lab None recorded. Referral None recorded. Procedures None recorded. Surgeries None recorded. Imaging None recorded. Medication Orders oxycodone 5 mg tablet 2023 024 [facility] , [address] [place] [address], [address], 4 08:37:48 Ambien CR 12.5 mg tablet,ext ended release 2023 024 [facility] , [address] [place] [address], [address], 4 08:37:48 Patient TargetsNo targets recorded. Patient Instructions Encounter Date Encounter Id Patient Instructions Last Modified By Organization Details Last Modified Time 06/04/2023 [id number] shingles: care instructions Not available 06/04/2023 17:34:45 Reason for Referral None Reported. Problems Name Problem SNOMED Code Status Onset Date Resolution Date Notes Provider Name and Address Organization Details Recorded Time 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 Active 2023 Bren Valero NP [address] [facility], [address], [place], [address], [facility] 4 08:59:38 Acute kidney injury 67219060 Active 2023 Bren Valero NP [address] [facility], [address], [place], [address], [facility] 4 08:59:46 Deondre singletary 205500899 Active 2023 Bren Valero NP [address], [address], [place], [address], [facility] 4 09:00:05 Obstructive sleep apnea syndrome 73636907 Active 2023 Bren Valero NP [address] [facility], [address], [place], [address], [facility] 4 09:00:33 Obesity 443232297 Active 2023 Bren Valero NP [address] [facility], [address], [place], [address], [facility] 4 09:00:40 Congestive heart failure 81350517 Active 2023 Bren Valero NP [address] [facility], [address], [place], [address], [facility] 4 09:00:47 Recurrent falls 415252514 Active 2023 Bren Valero NP [address] [facility], [address], [place], [address], [facility] 4 09:00:54 Hypertensiv e disorder 48095113 Active 2023 Bren Valero NP [address] [facility], [address], [place], [address], [facility] 4 09:01:04 Asthenia 96438295 Active 2023 Bren Valero NP [address] [facility], [address], [place], [address], [facility] 4 09:04:03 Retention of urine 924112989 Active 2023 Bren Valero NP [address] [facility], [address], [place], [address], [facility] 4 09:07:12 Syncope 976178242 Active 2023 Bren Valero NP [address] [facility], [address], [place], [address], [facility] 4 09:09:13 Leukocytosi s 659115620 Active 2023 Bren Valero NP [address] [facility], [address], [place], [address], [facility] 4 09:13:27 Aspartate transaminas e level above reference range 5363483822375 08 Active 2023 Bren Valero NP [address] [facility], [address], [place], [address], [facility] 4 09:15:25 Loose stool 560845603 Active 2023 Bren Valero NP [address] [facility], [address], [place], [address], [facility] 4 09:24:36 Candidiasis 11456634 Active 2023 Bren Valero NP [address] [facility], [address], [place], [address], [facility] 4 09:28:02 Insomnia 713637097 Active 2023 Bren Valero NP [address] [facility], [address], [place], [address], [facility] 4 10:17:35 Malignant neoplasm of colon and/or rectum 643424561 Active 2023 Joselo Alonso MD [address] [facility], [address], [place], [address], [facility] 4 14:45:45 Problem Notes None recorded. Medical Equipment None Reported. Allergies Allergen ID Allergen Name Allergen Category Reaction Reaction Severity Criticality Documentation Date Start Date Code Code System Note Provider Name and Address Organization Details Recorded Time 84855 aspirin medicatio n other Not available unabletoasse 06/03/2023 1191 RxNorm Bren Valero NP [address] [facility], [address], [place], [address], [facility] 4 10:21:26 Medications Name Sig Start [...] /min 130/84 mm[Hg] Bren Valero NP [address] [facility] [address], [place], [address], [facility] 06/03/2023 08:19:07 Date Recorded Heart rate Respiratory rate Body temperature Oxygen saturation Systolic And Diastolic Provider Name and Address Organization Details Last Updated DateTime 100 /min 18 /min 97.6 [degF] 93 % 149/83 mm[Hg] Bren Valero NP [address] [facility] [address], [place], [address], [facility] 17:23:47 Date Recorded Systolic And Diastolic Provider Name and Address Organization Details Last Updated DateTime 06/05/2023 177/100 mm[Hg] Joselo Alonso MD [address] [facility], [address], [place], [address], [facility] 06/05/2023 14:39:02 Date Recorded Heart rate Respiratory rate Body temperature Oxygen saturation Systolic And Diastolic Provider Name and Address Organization Details Last Updated DateTime 4 98 /min 16 /min 97.9 [degF] 94 % 149/92 mm[Hg] Bren Valero NP [address] [facility], [address], [place], [address], [facility] 4 12:33:05 Social History Question Answer Notes LastModified by Organizat ion Details LastModified Time Tobacco Smoking Status Former Smoker Bren Valero NP [address] [facility], [address], [place], [address], [facility] 06/03/2023 10:22:59 Do You Have An [...] Organization Details Recorded Time Tdap 6 completed [facility] 06/04/2023 12:23:34 Td(adult) unspecified formulation 8 completed [facility] 06/04/2023 12:23:50 pneumococcal polysaccharide PPV23 6 completed [facility] 06/04/2023 12:24:08 influenza, unspecified formulation 3 completed [facility] 06/04/2023 12:24:27 SARS-COV-2 (COVID-19) vaccine, UNSPECIFIED 1 completed [facility] 06/04/2023 12:24:41 SARS-COV-2 (COVID-19) vaccine, UNSPECIFIED 1 completed [facility] 06/04/2023 12:24:50 SARS-COV-2 (COVID-19) vaccine, UNSPECIFIED 1 [facility] 06/04/2023 12:24:59 Past Encounters Encounter ID Performer Location Encounter Start Date Encounter Closed Date Diagnosis/Indication Diagnosis SNOMED-CT Code Diagnosis ICD10 Code Diagnosis IMO Codes Diagnosis Note [id number] Bren Valero NP [address] [address] 06/03/2023 08:17:28 06/07/2023 10:25:32 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 0906928805 C80.1 rectosigmo id cancer with mets to [...] nmonitor bmp weekly while here Recurrent falls 35138095 2 R29.6 recurrent falls at homewhile in hosp felt due to syncope, dehydratio n and chemoCT head/spine neg for fxPT/OT treat and evalsuppor tive measures and safetymoni tor labs weekly and hydration status Asthenia 63867814 R53.1 felt very deconditio raquel in hosp and rec:PT OT eval and treat with rehab for strength, gait, balance, conditioni ng Tinea cruris 588077506 B 35.6 rash extensiveP kaylyn:nystat in powder topically tiddicfluc an 100 mg po daily x 4 more dosesclotr imazole betamethas one cream topcially bid to affected areainterd rywound consult Hypertensive disorder 38 386188 I10 metoprolol tartate 50 mg po bid hold SBP <90 HR <60captopr il 25 mg po bidmonitor bp, vitals Obstructiv e sleep apnea syndrome 86261310 G47.33 monitor resp status Congestive heart failure 45964087 I50.9 0-4 liters prn keep sat >90%monito r resp status, vitals, labs Obesity 430351033 E66.9 encourage good eating habitsweek ly wgtsdietic katiana consult for supportive diet and planmonito r Retention of urine 41691 4002 R33.9 retention of urine in hosp with foleyhad UTI resolved with ceftriaxon e x 7 days, however urine culture negremove jackson today, pvr q shift, sc > 350, reinsert jackson > 3 times sc, remove pvr if <350 x 3. Syncope 156174266 R55 found to be orthostati c with syncope in hospfelt resolved with fluids, no arrythmias foundateno lol changed to metoprolol in hospitalmo nitor Leukocytosis 818646316 D 72.829 felt rt steriods and tx with ceftriaxon e x 7 days with resolution monitor cbc weekly Aspartate transaminase level above reference range 9979870830 62737 R74.01 likely due to liver mets and hepatic steatosism onitor lfts weekly x 3 while in rehabavoid liver toxic meds/ pt on diflucanmo nitor closely Depressive disorder 3548 9007 F32.A sertraline 50 mg po dailymonit or Loose stool 888614031 R1 9.5 diphenoxyl ate-atropi ne 2.5/0.025 mg po qid prn loose stoolsmoni tor Candidiasis 16558948 B37 .9 minimal to no thrush noted on exam todaynysta tin susp po swish and spit qidalso on diflucanmo nitor Insomnia 743451098 G47.0 0 ambien 12.5 mg po qhsmonitor Chronic pain 75523775 G8 9.29 see mets cancerchan ge oxycodone 5 mg mild to mod pain, 10 mg mod to severe pain q 6 hours prn ( pt reports extreme pain and was using iv meds in hosp)dc percocet with liver disease [id number] Bren Valero NP [address] [address] 06/04/2023 16:56:47 06/07/2023 12:36:23 Herpes zoster 4138723 B02.9 shingles noted by wound team today [...] pt and staff educated on shinglesmo nitor [id number] Joselo Alonso MD [address] [address] 06/05/2023 14:38:30 06/08/2023 12:28:37 Malignant neoplasm of colon and/or rectum 602330620 C19 see HPIrectosi gmoid cancer s/p partial colectomy on chemothera pyLFTs felt secondary to probable metastatic spread to liverfollo [facility] with concernsmo nitor for pain control now on oxycodone for pain controlwil l start oxycontin 20 mg bidcontinu e oxycodone 10 mg q 5-10 mg q 6 pro breakthrou gh 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 1825991945 C80.1 see above with recent elevated LFTsmonito r CMP on current antiviralc oordinate care with oncology Acute kidney injury 1466 9001 N17.8 hx colon resection with ARF appears secondary to dehydratio nmonitor fluid intake and renal functionno w off diureticre cintia on captopril Recurrent falls 08722697 2 R29.6 PT OT Eval and treatmonit or fall risk Asthenia 34385396 R53.1 PT OT eval and treatmonit or for improvemen t in functional ability and need for increased assist in community Hypertensive disorder 38 128868 I10 metoprolol 50 mg bidcaptopr il 25 mg bidcurrent ly elevated will increase metoprolol to 75 mg bid with parameters in placediscu ssed with nursing Congestive heart failure 40055165 I50.22 carrying dxno longer on HCTZmonito r respirator y and fluid status Depressive disorder 3548 9007 F33.8 zoloft 50 mg qdmonitor for effectpsyc h eval prn Insomnia 440824105 G47.0 0 ambien 12.5 mg qhsmonitor for effect Acute infe ctive cystitis 122185193 N30.00 treated with course of rocephinmo nitor for recurrent disease Herpes zoster 3979643 B0 2.9 question zoster outbreak left groinnow on acyclovir to complete courseprec autions in placemonit or to resolution on gabapentin 300 mg tid at baseline Edema of scrotum 8840642 0 N50.89 see abovemonit or for impairment of circulatio n to tissueto ED for acute decompensa tion Candidiasis of skin 4988 3006 B37.2 severe candidiasi s not improving on nystatin powderwith erythema, weeping edema and maceration of skinstart diflucan 150 mg qd x 10 dayswound care to follow with continued dressing changes in skin folds [id number] Bren Valero NP [address] [address] 06/08/2023 12:31:40 06/16/2023 11:13:19 Malignant neoplasm of colon and/or rectum 153989275 C19 see HPI for hxrectosig moid cancer s/p partial colectomy on chemothera pyLFTs felt secondary to probable metastatic spread to liverfollo wed at [facility] outptupdat e with concernsmo nitor [...] next appt is for chemo, roughly around / per pt. 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 0748458606 C80.1 see above with recent elevated LFTsmonito r CMP on current antiviralc oordinate care with oncology Acute kidney injury 1466 9001 N17.8 hx colon resection with ARF appears secondary to dehydratio navoid nephrotoxi c medsccmoni tor fluid intake and renal functionno w off diureticre cintia on captoprilm onitor labs cbc and bmp abd liver profile weekly Asthenia 96351881 R53.1 PT OT eval and treatmonit or for improvemen t in functional ability and need for increased assist in community Recurrent falls 57104022 2 R29.6 PT OT Eval and treatmonit or fall risk Hypertensive disorder 38 945338 I10 contcaptop ril 25 mg bidmetopro lol to 75 mg bid with parameters in place(incr eased on 06/04) hr decreasing with slightly high at times still 80-90s.dis cussed with nursing Congestive heart failure 43134875 I50.22 carrying dxno longer on HCTZadd bnp to labsmonito r respirator y and fluid status Acute infe ctive cystitis 530372358 N30.00 resolvedtr eated with course of rocephin in hospmonito r for recurrent disease Depressive disorder 3548 9007 F33.8 contzoloft 50 mg qdmonitor for effectpsyc h eval prn Insomnia 921633767 G47.0 0 contambien 12.5 mg qhsmonitor for effect Herpes zoster 6926377 B0 2.9 question zoster outbreak left groinnow [...] changes in skin folds Edema of scrotum 5476748 0 N50.89 see abovemonit or for impairment [...] Member ID Guarantor Name 06/16/2023 1 [employer] ([employer]) [id number] Jeffery Marcus [id number] Jeffery Marcus 06/03/2023 1 MEDICARE B-[place]: [employer] Jeffery Marcus [id number] Jeffery Marcus Notes Date Note Type [...] with pmh above who is admitted to [facility] care for rehab and continued care after hospitalization at [facility] from 05/22/-06/02/23 initially presenting with fall, weakness, [...] high fall risk Bren Valero, BK [address] [facility], [address], [place], [address], [facility] 06/03/2023 10:48:27 06/04/19 24 text/htm l Pt is seen for an acute visit for nursing concern of shingles per wound PA. 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 Beck, BRANDON, CHF, obesity, HTN. Jeffery a 72 yo male with pmh above who is admitted to [facility] care for rehab and continued care after hospitalization at [facility] from 05/22/-06/02/23 initially presenting with fall, weakness, [...] is alert and awake and shows this RANGE MECHANIC his panus with multiple vesicular open areas [...] high fall risk Bren Valero NP [address] [facility], [address], [place], [address], [facility] [employer] 06/04/2023 17:34:47 06/05/19 24 text/htm l Patient is a 72 yo male admit from hospital after presenting with weakness s/p fall. Found to be in ARF with elevated wbc count and UTI complicated by rectosigmoid cancer s/p partial colectomy on chemotherapy, concern for dehydration. Treated with rocephin and IVF. Elevated LFTs felt secondary to probable metastatic spread to liver. Followed at [facility] for above CA, now with chemo at [facility] Of note since arrival at facility patient dx with shingles and started on acyclovir present and questions answered PMH significant forcolon CA s/p partial colectomychfhtnobesityOSA admit to facility for continued care and therapy to eval and treat Joselo Alonso MD [address] [facility], [address], [place], [address], [email or web address] [facility] 06/05/2023 15:30:47 06/08/19 24 text/htm l Pt is seen for acute rounding visit today. 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 Beck, BRANDON, CHF, obesity, HTN. Jeffery is a 72 yo male admitted to [facility] from hospital 05/22-06/01 after presenting with weakness s/p fall. Found to be in ARF with leukocytosis felt due to UTI complicated by rectosigmoid cancer s/p partial colectomy on chemotherapy, and concern for dehydration. While in the hosp he tx with rocephin and IVF. Elevated LFTs felt likely to metastatic spread to liver. Followed at [facility] for above CA, now with chemo at [facility]. On 06/03 pt diagnosed with shingles [...] Pt is sitting up in bed in [facility]. He is scrolling through the pictures on his phone stating he would like to share some pictures. This RANGE MECHANIC waited over 10 minutes for pt to show his picture on his phone which he cannot bring up regarding his wound. He refuses to left this RANGE MECHANIC see his wound today. He reports standing and leg exercises daily with therapy but is too weak to do much more. He also reports pain 5/10 which is tolerable today on current pain regimen. Lungs clear and heart rate reg. No new concerns today. MOLST:Full code 06/03 23 signedBIMS MOLST high fall risk Bren Valero, RANGE MECHANIC [address] [facility], [address], [place], [address], [facility] 06/08/2023 14:09:08
--- OUTSIDE RECORDS SUMMARY | 2025-01-26 19:47 | XMS_ITS | Encounter Summary ---
Author Organization [facility] Address [address] [facility] [address] [place] [address] Phone Care Team Providers Care Medical Assembly Name Role Phone Alban Abrams MD Primary Care Provider [phone] Self-Referred, Patient Unavailable Unavailab Jair Rodriguez MD, PhD Unavailable [phone] Jair Gonzalez MD, PhD Unavailable [phone] Raymon Norman MD Unavailable [phone] Shiloh Beck MD Unavailable [phone] Encounter Details Date Type Department Care Team (Late st Contact Info) Description 06/12/2021 Procedure Pass [facility] [place], [place] [address] [facility] [address] [place] [address] Social History Tobacco Use Types Packs/Day Years [...] Contact Info) Description 10/12/2024 Procedure Pass [facility], [facility], [place] [address] [facility], Floor [address] [place] [address] 10/12/2024 Procedure Pass [facility], [facility], [place] [address] [facility], [address] [place] [address] 03/08/2025 8:50 AM EST Blood Draw Laboratory Services, [facility] [place] [address] [facility] 3rd [place] [address] Jair Gonzalez MD, PhD [address] [place] [id number] [email or web address] 03/08/2025 10:40 AM EST Appointment [facility], [facility], [place] [address] [facility], [address] [place] [address] Jair Gonzalez MD, PhD [address] [place] [phone] [email or web address] 03/08/2025 2:00 PM EST Office Visit [facility], [address], 10[address] [place] [address] Jair Gonzalez MD, PhD [address] [place] [id number] [email or web address] documented as of this encounter Visit Diagnoses Not on filedocumented in this encounter Care Teams Medical Assembly Relationship Specialty Start Date End Date Alban Abrams MD [address] [place] [address] [place] [address] PCP - General Internal Medicine 02/17/17 Self-Referred, Patient Referring Physician 02/17/17 Jair Gonzalez MD, PhD [address] [place] [id number] [email or web address] Primary Oncologist Oncology 02/17/17 Jair Gonzalez MD, PhD [address] [place] [id number] [email or web address] Primary Oncologist Oncology 02/17/17 Raymon Norman MD [address] [place] [address] [email or web address] Primary Oncologist Surgical Oncology 03/17/17 Shiloh Beck MD [address] [place] [address] [email or web address] Hematology [email or web address] [email or web address] 12/30/17 documented as of this encounter Additional Source Comments The information contained in this document represents components of the legal health record. It is not the complete legal health record.[facility]
--- OUTSIDE RECORDS SUMMARY | 2025-01-26 19:47 | XMS_ITS | Encounter Summary ---
Author Organization [facility] Address [address] [facility] [address] [place] [address] Phone Care Team Providers Care Gasket Notcher Name Role Phone Alban Abrams MD Primary Care Provider [phone] Self-Referred, Patient Unavailable Unavailab Jair Rodriguez MD, PhD Unavailable [phone] Jair Gonzalez MD, PhD Unavailable [phone] Raymon Norman MD Unavailable [phone] Shiloh Beck MD Unavailable [phone] Encounter Details Date Type Department Care Team (Late st Contact Info) Description 12/15/2022 Procedure Pass [facility] Periop [address] [place] [address] Social History Tobacco Use Types Packs/Day Years [...] 11:00 PM EDT Orly Milton RN * [place] Suicide Severity Rating Scale (Screener/Recent Self-Report) Question [...] Description 10/12/2024 Procedure Pass [facility], [facility], [place] [address] [facility] [address] [place] [address] 10/12/2024 Procedure Pass [facility], [facility] [place] [address] [facility], [address] [place] [address] 03/08/2025 8:50 AM EST Blood Draw Laboratory Services, [facility] [place] [facility] [place] [address] [facility] [address] [place] [address] Jair Gonzalez MD, PhD [address] [place] [address] [email or web address] 03/08/2025 10:40 AM EST Appointment [facility], [facility], [place] [address] [facility], Floor [address] [place] [address] Jair Gonzalez MD, PhD [address] [place] [phone] [email or web address], [facility] 03/08/2025 2:00 PM EST Office Visit [facility], [facility] [address], 10th [place] [address] Jair Gonzalez MD, PhD [address] [place] [phone] [email or web address] documented as of this encounter Visit Diagnoses Not on filedocumented in this encounter Care Teams Gasket Notcher Relationship Specialty Start Date End Date Alban Abrams MD [address] [place] [address] PCP - General Internal Medicine 02/17/17 Self-Referred, Patient Referring Physician 02/17/17 Jair Gonzalez MD, PhD [address] [place] [id number] [email or web address] Primary Oncologist Oncology 02/17/17 Jair Gonzalez MD, PhD [address] [place] [phone] [email or web address] Primary Oncologist Oncology 02/17/17 Raymon Norman MD [address] [place] [phone] [email or web address] Primary Oncologist Surgical Oncology 03/17/17 Shiloh Beck MD [address] [place] [phone] [email or web address] Hematology [email or web address] [email or web address] 12/30/17 documented as of this encounter Additional Source Comments The information contained in this document represents components of the legal health record. It is not the complete legal health record.[facility]
--- OUTSIDE RECORDS SUMMARY | 2025-01-26 19:47 | XMS_ITS | Encounter Summary ---
Author Organization [facility] Address [address] [place] [address] Phone Care Team Providers Care Guard Captain Name Role Phone Alban Abrams MD Primary Care Provider [phone] Self-Referred, Patient Unavailable Unavailab Jair Rodriguez MD, PhD Unavailable [phone] Jair Gonzalez MD, PhD Unavailable [phone] Raymon Norman MD Unavailable [phone] Shiloh Beck MD Unavailable [phone] Encounter Details Date Type Department Care Team (Late Contact Info) Description 05/25/2017 Procedure Pass [facility] CT Imaging, [place] [address] [place] [address] Social History Tobacco Use Types Packs/Day Years [...] st Contact Info) Description 10/12[facility] [place] [address] [place] [address] 10/12/2024 [facility] [place] [address] [place] [address] 03/08/2025 8:50 AM EST Blood Draw Laboratory Services, [facility] [place] [address]rd [place] [address] Jair Gonzalez MD, PhD [address] [place] [id number] [email or web address] 03/08/2025 10:40 AM EST Appointment [facility] Imaging Department, [facility] [place] [address] [place] [address] Jair Gonzalez MD, PhD [address] [place] [email or web address] 03/08/2025 2:00 PM EST [facility], [address] [place] [address] Jair Gonzalez MD, PhD [address] [place] [email or web address] documented as of this encounter Visit Diagnoses Not on filedocumented in this encounter Care Teams Guard Captain Relationship Specialty Start Date End Date Alban Abrams MD [address] [place] [address] [place] [address] PCP - General Internal Medicine 02/17/17 Self-Referred, Patient Referring Physician 02/17/17 Jair Gonzalez MD, PhD [address] [place] [address] [email or web address] Primary Oncologist Oncology 02/17/17 Jair Gonzalez MD, PhD [address] [place] [phone] [email or web address] Primary Oncologist Oncology 02/17/17 Raymon Norman MD [address] [place] [phone] [email or web address] Primary Oncologist Surgical Oncology 03/17/17 Shiloh Beck MD [address] [place] [phone] [email or web address] 12/30/17 documented as of this encounter Additional Source Comments The information contained in this document represents components of the legal health record. It is not the complete legal health record.[facility]
--- NOTE | 2025-01-26 20:28 | MHC.EDTECH ---
Pt is up for discharge. Labs were not done in triage. Spoke with MD Poole he said, labs are not needed.
[2025-01-26 21:31] VITALS: BP 150/91; PULSE 97; RESP 18; TEMP 36.6; O2SAT 94
== END 2025-01-26 20:30 | disposition skilled nursing facility (03) ==
PROVIDERS: Emergency Provider Emergency Medicine; PCP Internal Medicine
DX: R60.9 Edema, unspecified (principal); M79.602 Pain in left arm; Z79.899 Other long term (current) drug therapy
CPT/HCPCS: 99282

== ENCOUNTER 2025-01-28 16:29 | Emergency (ER) | payer BC, MEDICARE, SELFPAY ==
--- NOTE | ~2025-01-28 | XR_ITS ---
CLINICAL HISTORY: Cough 1 view chest x-ray Comparison: CR/SR - XR CHEST 1V - 11/10/24 07:13 EDT Findings: Blunting of the right costophrenic angle. Perihilar reticular opacities. Normal size heart. Right internal jugular approach MediPort with tip projected over the superior vena cava. No acute fracture. IMPRESSION: 1. Blunting of the right costophrenic angle, possibly representing small pleural effusion. 2. Volume overload versus CHF. 3. Right internal jugular MediPort with tip projected over the superior vena cava. This document has been electronically signed by: Chino Bonilla MD on 01/28/2025 19:49:36
--- NOTE | ~2025-01-28 | XR_ITS ---
CLINICAL HISTORY: weakness 4 views lumbar spine Comparison: CR/SR - XR LUMBAR SPINE 2-3 VIEWS - 05/24/2024 02:56 PM EDT Findings: Normal vertebral body alignment. Moderate osteopenia. No significant degenerative change. L5-S1: Krsx-zj-gvkzqnux DJD. Moderate to severe calcified atherosclerotic disease abdominal aorta. IMPRESSION: 1. Moderate osteopenia. 2. 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 3. Moderate to severe calcified atherosclerotic disease of the abdominal aorta. 4. No acute osseous injury. This document has been electronically signed by: Chino Bonilla MD on 01/28/2025 18:40:47
--- NOTE | ~2025-01-28 | XR_ITS ---
CLINICAL HISTORY: Cough 2 view chest x-ray Comparison: CR - XR CHEST 1V - 01/28/25 18:55 EST CR - XR LUMBAR SPINE 2-3V - 01/28/25 17:32 EST CR/SR - XR CHEST 1V - 11/10/24 07:[address]/SR - CT CHEST ANGIOGRAPHY WITH IV CONTRAST - 11/06/24 11:14 EDT Findings: Right MediPort catheter terminates overlying the SVC. Moderate left and small right pleural effusion are present. Bibasilar and retrocardiac opacities are present. Air bronchograms are present in the left lower lobe. Cardiomegaly is unchanged. Pulmonary venous congestion is prominent. No acute fracture. IMPRESSION: 1. Pulmonary interstitial edema may represent sequelae of congestive heart failure 2. Zbyx-rircjmp-rcne-right pleural effusions with bibasilar atelectasis. 3. Left lower lobe atelectasis and consolidation may represent superimposed pneumonia/inflammation. This document has been electronically signed by: Mateusz Anderson III, MD PHD on 02/03/2025 21:17:36
--- NOTE | ~2025-01-28 | CT_ITS ---
CLINICAL HISTORY: Hypoxia, SOB, borderline tachycardia, cancer hx CT angiography chest with contrast. 3D Postprocessing. Comparison: CT/SR - CT CHEST ANGIOGRAPHY WITH IV CONTRAST - 11/06/24 11:14 EDT Findings: The heart is normal size. RV/LV ratio is normal. The thoracic aorta is normal caliber. Anatomic variant arch origin of the left vertebral artery is present. Superior mediastinum is normal. Thyroid is homogeneous. No pulmonary arterial filling defect to the lobar or segmental level. Left lung atelectasis and dependent consolidation is present. There is a right upper lobe lung nodule measuring 19 mm. Emphysematous changes are present. There is a right lower lobe lung nodule measuring 9 mm. There is a 2.1 cm right lower lobe nodule. There is a left lower lobe subpleural nodule measuring 14 mm. Upper abdomen demonstrates extensive vascular calcifications within the mesenteric vessels. There is partial visualization of the right kidney. Spleen is normal. Multiple gallstones are present. There is a lateral abdominal wall hernia containing the splenic flexure and descending colon. No acute fractures. IMPRESSION: 1. No pulmonary embolus. 2. Multiple pulmonary nodules, concerning for neoplasm. This document has been electronically signed by: Mateusz Anderson III, MD PHD on 02/04/2025 01:08:41
--- NOTE | ~2025-01-28 | CT_ITS ---
CLINICAL HISTORY: Change in Mental Status CT head without contrast Comparison: CT/REG/SR - CT HEAD WITHOUT IV CONTRAST - 11/07/24 10:36 EDT Findings: No intra-axial mass, midline shift, hydrocephalus, or acute hemorrhage. Involutional changes with prominence of the extra-axial spaces. Symmetric periventricular white matter changes. Vascular calcifications. The visualized paranasal sinuses and mastoid air cells are normal. The orbits are within normal limits. There is no acute fracture. IMPRESSION: 1. No acute intracranial findings. Chronic age related changes as noted This document has been electronically signed by: Chapincito Dean MD on 02/06/2025 03:04:11
--- NOTE | 2025-01-28 16:46 | ED_ITS ---
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 (0.0-0.2) /100WBC Sodium (135-145) mmol/L Potassium (3.3-5.1) mmol/L Chloride (96-108) mmol/L Carbon Dioxide (22-29) mmol/L Anion Gap (12-20) BUN (9-16) mg/dL Creatinine (0.5-1.4) mg/dL Estim Creat Clear Calc Estimated GFR POC Glucose (60-115) mg/dL Random Glucose (60-115) mg/dL Lactic Acid (0.5-2.0) mmol/L Lactic Acid F/U @ 2Hr 1.9 (0.5-2.0) mmol/L Calcium (8.4-10.2) mg/dL Magnesium (1.6-2.6) mg/dL Total Bilirubin (0.0-1.0) mg/dL Direct Bilirubin (0.0-0.5) mg/dL AST (5-37) U/L ALT (0-40) U/L Alkaline Phosphatase (39-117) U/L Total Creatine Kinase (38-174) U/L Troponin I High Sens 17.9 (<3.5-35.0) ng/L NT-Pro-B Natriuret Pep 1142.6 H (<300) pg/mL Total Protein (6.5-8.0) g/dL Albumin (3.5-5.0) g/dL Urine Color Urine Appearance Urine pH (5.0-9.0) Ur Specific [place] (1.005-1.025) Urine Protein (Neg-Trace) mg/dL Urine Glucose (UA) (Negative) mg/dL Urine Ketones (Negative) mg/dL Urine Blood (Negative) Urine Nitrite (Negative) Ur Leukocyte Esterase (Negative) Urine RBC (0-2) /HPF Urine WBC (0-5) /HPF Ur Squamous Epith Cells (0-2) /HPF Urine Bacteria (None Seen) Hyaline Casts (0-2) /LPF COVID-19 (RAMYA) (Negative) COVID-19 Clin Com Influenza Type A (KRISTYN) (Negative) Influenza Type A (PCR) NEGATIVE (Negative) Influenza Type B (KRISTYN) (Negative) Influenza Type B (PCR) NEGATIVE (Negative) Influenza A & B Note RSV RNA Qual (PCR) NEGATIVE (Negative) SARS-CoV-2 RNA (RT-PCR) NEGATIVE (Negative) 02/03/25 02/05/25 02/06/25 Range/Units 19:16 07:29 09:55 WBC 4.9 (4.8-10.8) X10*3/uL RBC 3.67 L (4.60-5.80) X10*6/uL Hgb 10.9 L (14.0-18.0) g/dl Hct 33.6 L (42.0-52.0) % MCV 91.6 (80.0-98.0) fL MCH 29.7 (27.0-33.0) pg MCHC 32.4 (31.0-36.0) g/dl RDW 14.1 (11.0-16.0) % Plt Count 141 L (160-400) X10*3/uL MPV 9.8 (9.4-12.4) fL Immature Gran % (Auto) 0.4 (0.0-0.4) % Neut % (Auto) 63.0 (45-73) % Lymph % (Auto) 18.3 L (20-40) % [place] % (Auto) 15.0 H (2-11) % Eos % (Auto) 2.7 (0-4) % Baso % (Auto) 0.6 (0-2) % Lymph # (Auto) 0.9 L (1.2-4.9) X10*3/uL [place] # (Auto) 0.7 (0.1-1.2) X10*3/uL Eos # (Auto) 0.1 (0.0-0.4) X10*3/uL Baso # (Auto) 0.0 (0.0-0.2) X10*3/uL Abs Immat Gran (auto) 0.02 (0.00-0.03) X10*3/uL Absolute Neuts (auto) 3.1 (2.0-8.3) x10*3/uL Absolute Nucleated RBC 0.000 (0.0-0.012) X10*3/uL Nucleated RBC % (auto) 0.0 (0.0-0.2) /100WBC Sodium 139 (135-145) mmol/L Potassium 4.9 (3.3-5.1) mmol/L Chloride 106 (96-108) mmol/L Carbon Dioxide 28 (22-29) mmol/L Anion Gap 10 L (12-20) BUN 20 H (9-16) mg/dL Creatinine 1.17 (0.5-1.4) mg/dL Estim Creat Clear Calc 76.3 Estimated GFR > 60 POC Glucose 135 H (60-115) mg/dL Random Glucose 182 H (60-115) mg/dL Lactic Acid (0.5-2.0) mmol/L Lactic Acid F/U @ 2Hr (0.5-2.0) mmol/L Calcium 9.3 D (8.4-10.2) mg/dL Magnesium 1.7 (1.6-2.6) mg/dL Total Bilirubin 0.2 (0.0-1.0) mg/dL Direct Bilirubin < 0.2 (0.0-0.5) mg/dL AST 23 (5-37) U/L ALT 20 (0-40) U/L Alkaline Phosphatase 84 (39-117) U/L Total Creatine Kinase (38-174) U/L Troponin I High Sens (<3.5-35.0) ng/L NT-Pro-B Natriuret Pep 184.5 (<300) pg/mL Total Protein 6.2 L (6.5-8.0) g/dL Albumin 3.2 L (3.5-5.0) g/dL Urine Color Yellow Urine Appearance Clear Urine pH 5.5 (5.0-9.0) Ur Specific [place] <= 1.005 (1.005-1.025) Urine Protein Negative (Neg-Trace) mg/dL Urine Glucose (UA) Negative (Negative) mg/dL Urine Ketones Negative (Negative) mg/dL Urine Blood Negative (Negative) Urine Nitrite Positive H (Negative) Ur Leukocyte Esterase Negative (Negative) Urine RBC 0-2 (0-2) /HPF Urine WBC 0-5 (0-5) /HPF Ur Squamous Epith Cells 0-2 (0-2) /HPF Urine Bacteria 4+ (None Seen) Hyaline Casts 0-2 (0-2) /LPF COVID-19 (RAMYA) (Negative) COVID-19 Clin Com Influenza Type A (KRISTYN) (Negative) Influenza Type A (PCR) (Negative) Influenza Type B (KRISTYN) (Negative) Influenza Type B (PCR) (Negative) Influenza A & B Note RSV RNA Qual (PCR) (Negative) SARS-CoV-2 RNA (RT-PCR) (Negative) Independent Interpretation I performed an independent interpretation of an: EKG and Plain X-Ray Interpretation: I have reviewed the patient's imaging and agree with the radiologist's findings. Rate: 99 Rhythm: SR with PACs [place]: Normal P waves. Normal ALFREDO. Normal QRS complex. ST T wave : no dep or elev qTC:436 prior studies:similar to previous The study has been interpreted contemporaneously by me. Radiology Impression Discussion of test interpretation with radiology: I have reviewed the radiologist's reading. Radiologist Impression: CXR IMPRESSION: 1. Blunting of the right costophrenic angle, possibly representing small pleural effusion. 2. Volume overload versus CHF. 3. Right internal jugular MediPort with tip projected over the superior vena cava. XR Lumbar Spine IMPRESSION: 1. Moderate osteopenia. 2. Arup-zz-iktoupwd degenerative joint disease at L5-S1. 3. Moderate to severe calcified atherosclerotic disease of the abdominal aorta. 4. No acute osseous injury. Independent Historian Clinical information obtained from an independent historian. History obtained from or confirmed by: Spouse External Record Review External record reviewed: Inpatient record (Admission), Outpatient record (H[facility]Onc from [facility]), Outside ED record and Other (prior ER visit) Chronic Conditions Patient?s care impacted by: Diabetes, Hypertension and Cancer Social Determinants Patient?s care significantly limited by Social Determinants of Health including: Problems related to primary support group Discharge Plan Discharge Clinical Impression: General weakness, Acidosis, lactic, UTI (urinary tract infection) Patient Disposition: Xfer Inpatient Rehab Fac Transfer Details: DR JUDY LUKE ACCEPTING Instructions: Urinary Tract Infection in Men (ED) Additional Instructions: Take your medications as prescribed. If you were prescribed antibiotics today, it is important that you take your medication to their entirety, do not skip any doses, do not finish them early. Follow-up with your primary care provider this week. Return to the emergency department with new or worsening symptoms. Such as fevers, chills, chest pain, shortness of breath, nausea, vomiting, dizziness, headache, vision changes, lethargy In case of emergency call 911 Prescriptions: New hydromorphone 4 mg tablet 4 mg PO Q8H PRN (Reason: pain) Qty: 14 0RF Rx Instructions: Partial Fill upon patient request. cefuroxime axetil 250 mg tablet 250 mg PO BID 5 Days Qty: 10 0RF No Action venlafaxine 75 mg tablet 75 mg PO DAILY Qty: 90 2RF (DME) Bariatric commode See Rx Instructions .Route .MEDSUPPLY Qty: 1 0RF Rx Instructions: As directed (DME) Bariatric hospital bed See Rx Instructions .Route .MEDSUPPLY Qty: 1 0RF Rx Instructions: As directed (DME) Bariatric walker See Rx Instructions .Route .MEDSUPPLY Qty: 1 0RF Rx Instructions: As directed (DME) Bariatric wheelchair See Rx Instructions .Route .MEDSUPPLY Qty: 1 0RF Rx Instructions: As directed sertraline 50 mg tablet 50 mg PO DAILY Qty: 90 0RF terazosin 5 mg capsule 5 mg PO BEDTIME 90 Days Qty: 90 0RF cholecalciferol (vitamin D3) [Vitamin D3] 50 mcg (2,000 unit) tablet 50 mcg PO BID Qty: 90 3RF gabapentin 300 mg capsule 300 mg PO TID PRN (Reason: Pain) ascorbic acid (vitamin C) [Vitamin C] 500 mg tablet 1,000 mg PO DAILY hydromorphone 4 mg Tablet 4 mg PO TID zolpidem 5 mg Tablet 5 mg PO BEDTIME PRN (Reason: Sleep) Qty: 0 0RF cyclobenzaprine 10 mg tablet 10 mg PO TID PRN (Reason: Muscle Spasm) (DME) compress.stocking,knee,reg,lrg Misc See Rx Instructions .Route Qty: 12 1RF Rx Instructions: As directed 20-30 mm HG (DME) Shower Chair Misc See Rx Instructions .Route Qty: 1 0RF Rx Instructions: As directed (DME) step stool with handle See Rx Instructions .Route .MEDSUPPLY Qty: 1 0RF Rx Instructions: As directed Referrals: [facility] [Outside] Referral Note: Now called [facility] [phone] Po,Oleg Rai MD [Primary Care Provider, Internal Medicine] Stand Alone Forms: Work/School Release Interventions: ED Discharge Assessment Last Done: 02/07/25 15:49 Discharge Date/Time: 02/07/25 15:42 Print Language: Zimbabwean
[2025-01-28 16:47] VITALS: BP 179/90; PULSE 115; RESP 24; TEMP 36.3; O2SAT 97; BMI 36.2
--- NOTE | 2025-01-28 16:47 | ECG_ITS ---
Test Reason : weakness Blood Pressure : */* mmHG Vent. Rate : 99 BPM Atrial Rate : 99 BPM P-R Int : 166 ms QRS Dur : 120 ms QT Int : 340 ms P-R-T Axes : 38 -21 -7 degrees QTcB Int : 436 ms Sinus rhythm with Premature atrial complexes Septal infarct , age undetermined ST & T wave abnormality, consider anterior ischemia Abnormal ECG When compared with ECG of 07-Nov-2024 10:03, Nonspecific T wave abnormality, improved in Lateral leads Referred By: Estiven Carroll Electronically Signed By: MARIELA PEREIRA
[2025-01-28 17:30] LABS: MANUAL DIFF FLAG NO
[2025-01-28 17:33] LABS: Hematocrit 36.1 % (42.0-52.0); Hemoglobin 12.0 g/dl (14.0-18.0); Imm Gran Abs Auto 0.03 X10*3/uL (0.00-0.03); Imm Gran Pct Auto 0.5 % (0.0-0.4); Lymphocytes Absolute Auto 0.9 X10*3/uL (1.2-4.9); Mean Corpuscular HGB Conc 33.2 g/dl (31.0-36.0); Mean Corpuscular Hemoglobin 30.1 pg (27.0-33.0); Mean Corpuscular Volume 90.5 fL (80.0-98.0); NRBC Abs Auto 0.000 X10*3/uL (0.0-0.012); NRBC Pct Auto 0.0 /100WBC (0.0-0.2); Platelet Count 180 X10*3/uL (160-400); Red Blood Count 3.99 X10*6/uL (4.60-5.80); White Blood Count 5.9 X10*3/uL (4.8-10.8)
[2025-01-28 17:47] LABS: Alanine Aminotransferase 24 U/L (0-40); Albumin Level 3.7 g/dL (3.5-5.0); Alkaline Phosphatase 94 U/L (39-117); Anion Gap 14 (12-20); Aspartate Amino Transferase 31 U/L (5-37); Blood Urea Nitrogen 17 mg/dL (9-16); COVID-19 Test Negative (Negative); Calcium 9.9 mg/dL (8.4-10.2); Carbon Dioxide 21 mmol/L (22-29); Chloride 111 mmol/L (96-108); Creatinine Clr Calc Pharmacy 100.3; Estimated Glomerular Filt Rate > 60; IDNOW Serial# 55D5AD1C; Potassium 4.4 mmol/L (3.3-5.1); Sodium 142 mmol/L (135-145); Total Protein 6.9 g/dL (6.5-8.0)
[2025-01-28 17:55] LABS: Troponin-I High Sensitivity 14.5 ng/L (<3.5-35.0)
[2025-01-28 18:02] LABS: IDNOW Serial# 58CA691E; Influenza B2 Invalid (Negative)
--- NOTE | 2025-01-28 18:40 | PC.NURSE ---
This RN made aware of critical lactic at 1800 by provider, this RN as charge needing to move multiple rooms around to get back pt, PIT provider aware, ordered BC for this RN per request, both sets drawn in trg, pt brought back to room, just changed over and placed on monitor at this time. Approx 1835 Ed providers made aware d/t intial vitals/Lac pt ruling in as sepsis alert, awaiting further orders at this time.
[2025-01-28 18:47] VITALS: BP 161/100; PULSE 101; RESP 16; TEMP 36.8; O2SAT 97
--- OUTSIDE RECORDS SUMMARY | 2025-01-28 18:59 | XMS_ITS | Encounter Summary ---
Author Organization [facility] Address [address] [place] [address] Phone Care Team Providers Care Coin Wrapping Machine Operator Name Role Phone Alban Abrams MD Primary Care Provider [phone] Self-Referred, Patient Unavailable Unavailab Jair Rodriguez MD, PhD Unavailable [phone] Jair Gonzalez MD, PhD Unavailable [phone] Raymon Norman MD Unavailable [phone] Shiloh Beck MD Unavailable [phone] Encounter Details Date Type Department Care Team (Late st Contact Info) Description 08/11/2023 Procedure Pass [facility] [address] [place] [address] Social History Tobacco Use Types Packs/Day Years [...] st Contact Info) Description 10/12/2024 Procedure Pass [facility] Imaging Department, [facility], [place] [address] [facility], Floor [address] [place] [address] 10/12/2024 Procedure Pass [facility] Imaging Department, [facility], [place] [address] [facility], [address] [place] [address] 03/08/2025 8:50 AM EST Blood Draw Laboratory Services, [facility] [place] [address] [facility] [address]rd [place] [address] Jair Gonzalez MD, PhD [address] [place] [phone] [email or web address] 03/08/2025 10:40 AM EST Appointment [facility] Imaging Department, [facility], [place] [address] [facility], [address] [place] [address] Jair Gonzalez MD, PhD [address] [place] [phone] [email or web address] 03/08/2025 2:00 PM EST Office [facility], [address], 10th [place] [address] Jair Gonzalez MD, PhD [address] [place] [phone] [email or web address] documented as of this encounter Visit Diagnoses Not on filedocumented in this encounter Care Teams Coin Wrapping Machine Operator Relationship Specialty Start Date End Date Alban Abrams MD [address] [place] [address] [address] PCP - General Internal Medicine 02/17/17 Self-Referred, Patient Referring Physician 02/17/17 Jair Gonzalez MD, PhD [address] [place] [phone] [email or web address] Primary Oncologist Oncology 02/17/17 Jair Gonzalez MD, PhD [address] [place] [address] [email or web address] Primary Oncologist Oncology 02/17/17 Raymon Norman MD [address] [place] [address] [email or web address] Primary Oncologist Surgical Oncology 03/17/17 Shiloh Beck MD [address] [place] [phone] [email or web address] Hematology and Oncology 12/30/17 documented as of this encounter Additional Source Comments The information contained in this document represents components of the legal health record. It is not the complete legal health record.[facility]
--- OUTSIDE RECORDS SUMMARY | 2025-01-28 18:59 | XMS_ITS | Encounter Summary ---
Author Organization [facility] Address [address] [place] [address] Phone Care Team Providers Care Fact Checker Name Role Phone Alban Abrams MD Primary Care Provider [phone] Self-Referred, Patient Unavailable Unavailab Jair Rodriguez MD, PhD Unavailable [phone] Jair Gonzalez MD, PhD Unavailable [phone] Raymon Norman MD Unavailable [phone] Shiloh Beck MD Unavailable [phone] Encounter Details Date Type Department Care Team (Late st Contact Info) Description 09/23/2023 Procedure Pass [facility], [facility] [place], [place] [address] [facility], [address] [place] [address] Social History Tobacco Use Types Packs/Day Years [...] Procedure Pass [facility] Imaging Department, [facility], [place] [address] [facility], [address] [place] [address] 10/12/2024 Procedure Pass [facility] Imaging Department, [facility], [place] [address] [facility], [address] [place] [address] 03/08/2025 8:50 AM EST Blood Draw Laboratory Services, [facility] at [place] [address] [facility] 3rd [place] [address] Jair Gonzalez MD, PhD [address] [place] [phone] [email or web address] 03/08/2025 10:40 AM EST Appointment [facility] Imaging Department, [facility], [place] [address] [facility], [address] [place] [address] Jair Gonzalez MD, PhD [address] [place] [phone] [email or web address] 03/08/2025 2:00 PM EST Office Visit [facility], [address], 10th [place] [address] Jair Gonzalez MD, PhD [address] [place] [phone] [email or web address] documented as of this encounter Visit Diagnoses Not on filedocumented in this encounter Care Teams Fact Checker Relationship Specialty Start Date End Date Alban Abrams MD [address] [place] [address] [address] PCP - General Internal Medicine 02/17/17 Self-Referred, Patient Referring Physician 02/17/17 Jair Gonzalez MD, PhD [address] [place] [phone] [email or web address] Primary Oncologist Oncology 02/17/17 Jair Gonzalez MD, PhD [address] [place] [phone] [email or web address] Primary Oncologist Oncology 02/17/17 Raymon Norman MD [address] [place] [phone] [email or web address] Primary Oncologist Surgical Oncology 03/17/17 Shiloh Beck MD [address] [place] [phone] [email or web address] [facility] 12/30/17 documented as of this encounter Additional Source Comments The information contained in this document represents components of the legal health record. It is not the complete legal health record.[facility]
--- OUTSIDE RECORDS SUMMARY | 2025-01-28 18:59 | XMS_ITS | Encounter Summary ---
Author Organization [facility] Address [address] [place] [address] Phone Care Team Providers Care Firearms Instructor Name Role Phone Alban Abrams MD Primary Care Provider [phone] Self-Referred, Patient Unavailable Unavailab Jair Rodriguez MD, PhD Unavailable [phone] Jair Gonzalez MD, PhD Unavailable [phone] Raymon Norman MD Unavailable [phone] Shiloh Beck MD Unavailable [phone] Encounter Details Date Type Department Care Team (Late st Contact Info) Description 05/26/2023 Procedure Pass [facility] MR Imaging, [place] [address] [place] [address] Social History Tobacco Use Types Packs/Day Years [...] Contact Info) Description 10/12/2024 Procedure Pass [facility] Imaging Department, [facility], [place] [address] [facility], Floor [address] [place] [address] 10/12/2024 Procedure Pass [facility] Imaging Department, [facility], [place] [address] [facility], [address] [place] [address] 03/08/2025 8:50 AM EST Blood Draw Laboratory Services, [facility] at [place] [address] [facility] 3rd [place] [address] Jair Gonzalez MD, PhD [address] [place] [phone] [email or web address] 03/08/2025 10:40 AM EST Appointment [facility] Imaging Department, [facility], [place] [address] [facility], Floor [address] [place] [address] Jair Gonzalez MD, PhD [address] [place] [phone] [email or web address] 03/08/2025 2:00 PM EST Office Visit [facility], [address], 10th [place] [address] Jair Gonzalez MD, PhD [address] [place] [phone] [email or web address] documented as of this encounter Visit Diagnoses Not on filedocumented in this encounter Care Teams Firearms Instructor Relationship Specialty Start Date End Date Alban Abrams MD [address] [place] [address] [address] PCP - General Internal Medicine 02/17/17 Self-Referred, Patient Referring Physician 02/17/17 Jair Gonzalez MD, PhD [address] [place] [phone] [email or web address] Primary Oncologist Oncology 02/17/17 Jair Gonzalez MD, PhD [address] [place] [phone] [email or web address] Primary Oncologist Oncology 02/17/17 Raymon Norman MD [address] [place] [address] [email or web address] Primary Oncologist Surgical Oncology 03/17/17 Shiloh Beck MD [address] [place] [phone] [email or web address] [email or web address] Hematology and Oncology 12/30/17 documented as of this encounter Additional Source Comments The information contained in this document represents components of the legal health record. It is not the complete legal health record.[facility]
--- OUTSIDE RECORDS SUMMARY | 2025-01-28 18:59 | XMS_ITS | Encounter Summary ---
Author Organization [facility] Address [address] [facility] [address] [place] [address] Phone Care Team Providers Care Commissary Representative Name Role Phone Alban Abrams MD Primary Care Provider [phone] Self-Referred, Patient Unavailable Unavailab Jair Rodriguez MD, PhD Unavailable [phone] Jair Gonzalez MD, PhD Unavailable [phone] Raymon Norman MD Unavailable [phone] Shiloh Beck MD Unavailable [phone] Encounter Details Date Type Department Care Team (Late st Contact Info) Description 10/15/2017 Procedure Pass [facility] Imaging [facility], [facility] [place] [address] [facility], Floor [address]1 [place] [address] Social History Tobacco Use Types Packs/Day Years [...] Contact Info) Description 10/12/2024 Procedure Pass [facility] Imaging Department, [facility], [place] [address] [facility], [address] [place] [address] 10/12/2024 Procedure Pass [facility] Imaging Department, [facility] [place] [address] [facility], [address] [place] [address] 03/08/2025 8:50 AM EST Blood Draw Laboratory Services, [facility] at [place] [address] [facility] 3rd [place] [address] Jair Gonzalez MD, PhD [address] [place] [phone] [email or web address] 03/08/2025 10:40 AM EST Appointment [facility] Imaging Department, [facility], [place] [address] [facility], Floor [address] [place] [address] Jair Gonzalez MD, PhD [address] [place] [phone] [email or web address] 03/08/2025 2:00 PM EST Office Visit [facility], [address], 10th [place] [address] Jair Gonzalez MD, PhD [address] [place] [phone] [email or web address] documented as of this encounter Visit Diagnoses Not on filedocumented in this encounter Care Teams Commissary Representative Relationship Specialty Start Date End Date Alban Arbams MD [address] [place] [address] [place] [address] PCP - General Internal Medicine 02/17/17 Self-Referred, Patient Referring Physician 02/17/17 Jair Gonzalez MD, PhD [address] [place] [phone] [email or web address] Primary Oncologist Oncology 02/17/17 Jair Gonzalez MD, PhD [address] [place] [phone] [email or web address] Primary Oncologist Oncology 02/17/17 Raymon Norman MD [address] [place] [phone] [email or web address] Primary Oncologist Surgical Oncology 03/17/17 Shiloh Beck MD [address] [place] [address] [email or web address] Hematology and Oncology 12/30/17 documented as of this encounter Additional Source Comments The information contained in this document represents components of the legal health record. It is not the complete legal health record.[facility]
--- OUTSIDE RECORDS SUMMARY | 2025-01-28 18:59 | XMS_ITS | Encounter Summary ---
Author Organization [facility] Address [address] [place] [address] Phone Care Team Providers Care Historiography Professor Name Role Phone Alban Abrams MD Primary Care Provider [phone] Self-Referred, Patient Unavailable Unavailab Jair Rodriguez MD, PhD Unavailable [phone] Jair Gonzalez MD, PhD Unavailable [phone] Raymon Norman MD Unavailable [phone] Shiloh Beck MD Unavailable [phone] Encounter Details Date Type Department Care Team (Late st Contact Info) Description 10/27/2023 Procedure Pass [facility] [address] [place] [address] Social History Tobacco Use Types Packs/Day Years [...] Procedure Pass [facility] Imaging [facility], [facility], [place] [address] [facility], Floor L1 [place] [address] 10/12/2024 Procedure Pass [facility] Imaging Department, [facility] [place] [address] [facility], Floor [address]1 [place] [address] 03/08/2025 8:50 AM EST Blood Draw Laboratory Services, [facility] [place] [facility] [place] [address] [place] [address] [address] Jair Gonzalez MD, PhD 450 [place] [address] Samm@[email or web address] 03/08/2025 10:40 AM EST Appointment [facility] Imaging Department, [facility], [place] [address] [facility], Floor [address]1 [place] [address] Jair Gonzalez MD, PhD [address] [place] [address] [email or web address] 03/08/2025 2:00 PM EST Office Visit [facility], [facility] 450 [facility], 10th [place] [address] Jair Gonzalez MD, PhD [address] [place] [address] Samm@d [email or web address] documented as of this encounter Visit Diagnoses Not on filedocumented in this encounter Care Teams Historiography Professor Relationship Specialty Start Date End Date Alban Abrams MD [address] [place] [address] [place] [address] PCP - General Internal Medicine 02/17/17 Self-Referred, Patient Referring Physician 02/17/17 Jair Gonzalez MD, PhD [address] [place] [address] [email or web address] Primary Oncologist Oncology 02/17/17 Jair Gonzalez MD, PhD [address] [place] [address] [email or web address] Primary Oncologist Oncology 02/17/17 Raymon Norman MD [address] [place] [address] [email or web address] u Primary Oncologist Surgical Oncology 03/17/17 Shiloh Beck MD [address] [place] [phone] [email or web address] Hematology and Oncology 12/30/17 documented as of this encounter Additional Source Comments The information contained in this document represents components of the legal health record. It is not the complete legal health record.[facility]
--- OUTSIDE RECORDS SUMMARY | 2025-01-28 18:59 | XMS_ITS | Encounter Summary ---
Author Organization [facility] Address [address] [facility] [address] [place] [address] Phone Care Team Providers Care Gun Mechanic Name Role Phone Alban Abrams MD Primary Care Provider [phone] Self-Referred, Patient Unavailable Unavailab Jair Rodriguez MD, PhD Unavailable [phone] Jair Gonzalez MD, PhD Unavailable [phone] Raymon Norman MD Unavailable [phone] Shiloh Beck MD Unavailable [phone] Encounter Details Date Type Department Care Team (Late Contact Info) Description 05/25/2017 Procedure Pass [facility] Imaging, [place] [address] [place] [address] Social History Tobacco Use Types Packs/Day Years [...] st Contact Info) Description 10/12/2024 [facility], [facility], [place] [address] [facility], Floor L1 [place] [address] 10/12/2024 [facility], [facility] [place] [address] [facility], Floor [address]1 [place] [address] 03/08/2025 8:50 AM EST Blood Draw Laboratory Services, [facility] [place] 300 [facility] 3rd [place] [address] Jair Gonzalez MD, PhD [address] [place] [phone] [email or web address] 03/08/2025 10:40 AM EST Appointment [facility] Imaging Department, [facility], [place] [address] [facility], Floor [address]1 [place] [address] Jair Gonzalez MD, PhD [address] [place] [phone] [email or web address] 03/08/2025 2:00 PM EST Office Visit [facility], [address], 10th [place] [address] Jair Gonzalez MD, PhD [address] [place] [address] [email or web address] documented as of this encounter Visit Diagnoses Not on filedocumented in this encounter Care Teams Gun Mechanic Relationship Specialty Start Date End Date Alban Abrams MD [address] [place] [address] [place] [address] PCP - General Internal Medicine 02/17/17 Self-Referred, Patient Referring Physician 02/17/17 Jari Gonzalez MD, PhD 450 [place] [address] [email or web address] Primary Oncologist Oncology 02/17/17 Jair Gonzalez MD, PhD [address] [place] [phone] [email or web address] Primary Oncologist Oncology 02/17/17 Raymon Norman MD [address] [place] [address] [email or web address] Primary Oncologist Surgical Oncology 03/17/17 Shiloh Beck MD [address] [place] [phone] [email or web address] [email or web address] 12/30/17 documented as of this encounter Additional Source Comments The information contained in this document represents components of the legal health record. It is not the complete legal health record.[facility]
--- OUTSIDE RECORDS SUMMARY | 2025-01-28 18:59 | XMS_ITS | Encounter Summary ---
Author Organization [facility] Address [address] [place] [address] Phone Care Team Providers Care Wood Floor Layer Name Role Phone Alban Abrams MD Primary Care Provider [phone] Self-Referred, Patient Unavailable Unavailab Jair Rodriguez MD, PhD Unavailable [phone] Jair Gonzalez MD, PhD Unavailable [phone] Raymon Norman MD Unavailable [phone] Shiloh Beck MD Unavailable [phone] Encounter Details Date Type Department Care Team (Late st Contact Info) Description 01/05/2024 Procedure Pass [facility] 75 [place] [address] Social History Tobacco Use Types Packs/Day Years [...] st Contact Info) Description 10/12/2024 Procedure Pass [facility] Imaging Department, [facility] [place] 450 [facility], Floor L1 [place] [address] 10/12/2024 Procedure Pass [facility] Imaging Department, [facility] [place] [address] [facility], Floor [address]1 [place] [address] 03/08/2025 8:50 AM EST Blood Draw Laboratory Services, [facility] [place] [facility] [place] [address] [address] Jair Gonzalez MD, PhD 450 [place] [address] [email or web address]@d [email or web address] 03/08/2025 10:40 AM EST Appointment [facility] Imaging Department, [facility] [place] [address] [facility], Floor L1 [place] [address] Jair Gonzalez MD, PhD [address] [place] [phone] Samm@d [email or web address] 03/08/2025 2:00 PM EST Office Visit [facility], [facility] 450 [facility], 10th [place] [address] Jair Gonzalez MD, PhD [address] [place] [phone] [email or web address]@d [email or web address] documented as of this encounter Visit Diagnoses Not on filedocumented in this encounter Care Teams Wood Floor Layer Relationship Specialty Start Date End Date Alban Abrams MD [address] [place] [address] [place] [address] PCP - General Internal Medicine 02/17/17 Self-Referred, Patient Referring Physician 02/17/17 Jair Gonzalez MD, PhD [address] [place] [phone] [email or web address] Primary Oncologist Oncology 02/17/17 Jair Gonzalez MD, PhD [address] [place] [phone] [email or web address] Primary Oncologist Oncology 02/17/17 Raymon Norman MD [address] [place] [address] [email or web address] Primary Oncologist Surgical Oncology 03/17/17 Shiloh Beck MD [address] [place] [phone] [email or web address] [email or web address] 12/30/17 documented as of this encounter Additional Source Comments The information contained in this document represents components of the legal health record. It is not the complete legal health record.[facility]
--- OUTSIDE RECORDS SUMMARY | 2025-01-28 18:59 | XMS_ITS | Encounter Summary ---
Author Organization [facility] Address [address] [facility] [address] [place] [address] Phone Care Team Providers Care Railcar Carpenter Name Role Phone Alban Abrams MD Primary Care Provider [phone] Self-Referred, Patient Unavailable Unavailab Jair Rodriguez MD, PhD Unavailable [phone] Jair Gonzalez MD, PhD Unavailable [phone] Raymon Norman MD Unavailable [phone] Shiloh Beck MD Unavailable [phone] Encounter Details Date Type Department Care Team (Late st Contact Info) Description 10/24/2020 Procedure Pass [facility] [place] 300 [facility] 3rd [place] [address] Social History Tobacco Use Types Packs/Day Years [...] Info) Description 10/12/2024 Procedure Pass [facility] Imaging Department, [facility], [place] [address] [facility], Floor L1 [place] [address] 10/12/2024 Procedure Pass [facility] Imaging Department, [facility] [place] [address] [facility], Floor [address]1 [place] [address] 03/08/2025 8:50 AM EST Blood Draw Laboratory Services, [facility] [place] 300 [facility] 3rd [place] [address] Jair Gonzalez MD, PhD [address] [place] [address] [email or web address] 03/08/2025 10:40 AM EST Appointment [facility] Imaging Department, [facility], [place] [address] [facility], Floor [address]1 [place] [address] Jair Gonzalez MD, PhD [address] [place] [phone] [email or web address] [email or web address] 03/08/2025 2:00 PM EST Office Visit [facility], [address], 10th [place] [address] Jair Gonzalez MD, PhD [address] [place] [phone] [email or web address] documented as of this encounter Visit Diagnoses Not on filedocumented in this encounter Care Teams Railcar Carpenter Relationship Specialty Start Date End Date Alban Abrams MD [address] [place] [address] [place] [address] PCP - General Internal Medicine 02/17/17 Self-Referred, Patient Referring Physician 02/17/17 Jair Gonzalez MD, PhD [address] [place] [phone] [email or web address] Primary Oncologist Oncology 02/17/17 Jair Gonzalez MD, PhD [address] [place] [phone] [email or web address] Primary Oncologist Oncology 02/17/17 Raymon Norman MD [address] [place] [address] [email or web address] Primary Oncologist Surgical Oncology 03/17/17 Shiloh Beck MD 5 [place] [address] [email or web address] Hematology and Oncology 12/30/17 documented as of this encounter Additional Source Comments The information contained in this document represents components of the legal health record. It is not the complete legal health record.[facility]
--- OUTSIDE RECORDS SUMMARY | 2025-01-28 18:59 | XMS_ITS | Encounter Summary ---
Author Organization [facility] Address [address] [place] [address] Phone Care Team Providers Care Assembly Machine Operator Name Role Phone Alban Abrams MD Primary Care Provider [phone] Self-Referred, Patient Unavailable Unavailab Jair Rodriguez MD, PhD Unavailable [phone] Jair Gonzalez MD, PhD Unavailable [phone] Raymon Norman MD Unavailable [phone] Shiloh Beck MD Unavailable [phone] Encounter Details Date Type Department Care Team (Late st Contact Info) Description 12/30/2023 Procedure Pass [facility] Imaging Department, [facility] [place] 450 [facility], Floor L1 [place] [address] Social History Tobacco Use Types Packs/Day Years [...] st Contact Info) Description 10/12/2024 Procedure Pass [facility] Imaging Department, [facility] [place] 450 [facility], Floor [address]1 [place] [address] 10/12/2024 Procedure Pass [facility] Imaging Department, [facility] [place] 450 [facility], Floor [address]1 [place] [address] 03/08/2025 8:50 AM EST Blood Draw Laboratory Services, [facility] [place] [facility] [place] 300 [facility] 3rd [place] [address] Jair Gonzalez MD, PhD 450 [place] [address] Samm@d [email or web address] 03/08/2025 10:40 AM EST Appointment [facility] Imaging Department, [facility], [place] 450 [facility], Floor [address]1 [place] [address] Jair Gonzalez MD, PhD [address] [place] [phone] Samm@d [email or web address] 03/08/2025 2:00 PM EST Office Visit [facility], [address], 10th [place] [address] Jair Gonzalez MD, PhD [address] [place] [phone] Samm@d [email or web address] documented as of this encounter Visit Diagnoses Not on filedocumented in this encounter Care Teams Assembly Machine Operator Relationship Specialty Start Date End Date Alban Abrams MD [address] [place] [address] [place] [address] PCP - General Internal Medicine 02/17/17 Self-Referred, Patient Referring Physician 02/17/17 Jair Gonzalez MD, PhD [address] [place] [phone] [email or web address] Primary Oncologist Oncology 02/17/17 Jair Gonzalez MD, PhD [address] [place] [address] [email or web address] Primary Oncologist Oncology 02/17/17 Raymon Norman MD [address] [place] [phone] [email or web address] Primary Oncologist Surgical Oncology 03/17/17 Shiloh Beck MD [address] [place] [phone] [email or web address] Hematology and Oncology 12/30/17 documented as of this encounter Additional Source Comments The information contained in this document represents components of the legal health record. It is not the complete legal health record.[facility]
--- OUTSIDE RECORDS SUMMARY | 2025-01-28 18:59 | XMS_ITS | Clinical Summary ---
Author Organization [facility] Address [address] [place] [address] Care Team Providers Care Drier And Pulverizer Tender Name Role Phone Pcp, No Primary Care [...] topic Insurance MEDICARE PART A & B [facility] Care Teams Drier And Pulverizer Tender Relationship Specialty Start Date End Date Pcp, No PCP - General General Medicine 11/23/22
--- OUTSIDE RECORDS SUMMARY | 2025-01-28 18:59 | XMS_ITS | Encounter Summary ---
Author Organization [facility] Address [address] [facility] [address] [place] [address] Phone Care Team Providers Care Wood Pole Treater Name Role Phone Alban Abrams MD Primary Care Provider [phone] Self-Referred, Patient Unavailable Unavailab Jair Rodriguez MD, PhD Unavailable [phone] Jair Gonzalez MD, PhD Unavailable [phone] Raymon Norman MD Unavailable [phone] Shiloh Beck MD Unavailable [phone] Encounter Details Date Type Department Care Team (Late st Contact Info) Description 01/25/2024 Procedure Pass [facility] [address] [place] [address] Social History Tobacco Use Types Packs/Day Years [...] st Contact Info) Description 10/12/[address] [facility] [place] [facility] Imaging Department, [facility] [place] [address] [facility], Floor [address]1 [place] [address] 10/12/2024 Procedure Pass [facility] Imaging Department, [facility], [place] [address] [facility], Floor [address]1 [place] [address] 03/08/2025 8:50 AM EST Blood Draw Laboratory Services, [facility] [place] 300 [facility] 3rd [place] [address] Jair Gonzalez MD, PhD [address] [place] [phone] Samm@[facility] 03/08/2025 10:40 AM EST Appointment [facility] [place] [facility] Imaging Department, [facility], [place] [address] [facility], Floor [address]1 [place] [address] Jair Gonzalez MD, PhD [address] [place] [phone] Samm@[facility] 03/08/2025 2:00 PM EST Office Visit [facility], [address], 10th [place] [address] Jair Gonzalez MD, PhD [address] [place] [phone] Samm@[email or web address] documented as of this encounter Visit Diagnoses Not on filedocumented in this encounter Care Teams Wood Pole Treater Relationship Specialty Start Date End Date Alban Abrams MD [address] [place] [address] [place] [address] PCP - General Internal Medicine 02/17/17 Self-Referred, Patient Referring Physician 02/17/17 Jair Gonzalez MD, PhD [address] [place] [phone] Samm@[email or web address]. [facility] Primary Oncologist Oncology 02/17/17 Jair Gonzalez MD, PhD [address] [place] [phone] Samm@[email or web address]. [facility] Primary Oncologist Oncology 02/17/17 Raymon Norman MD [address] [place] [phone] [email or web address] Primary Oncologist Surgical Oncology 03/17/17 Shiloh Beck MD [address] [place] [phone] [email or web address] Hematology and Oncology 12/30/17 documented as of this encounter Additional Source Comments The information contained in this document represents components of the legal health record. It is not the complete legal health record.[facility]
--- OUTSIDE RECORDS SUMMARY | 2025-01-28 18:59 | XMS_ITS | Clinical Summary ---
Author Organization [facility] Address [address] [facility] [address] [place] [address] Phone Care Team Providers Care Salesforce Business Analyst Name Role Phone Alban Abrams MD Primary Care Provider [phone] Self-Referred, Patient Unavailable Unavailab Jair Rodriguez MD, PhD Unavailable [phone] Jair Gonzalez MD, PhD Unavailable [phone] Raymon Norman MD Unavailable [phone] Shiloh Beck MD Unavailable [phone] Allergies Active Allergy Reactions Criticality Noted [...] mouth daily as needed for allergies. Active pw-mhh-pzykh-K1-ly copen-lutein (CENTRUM SILVER ULTRA MEN'S) [id number] mcg Tab Take by mouth. 02/03/20 Active [...] Pass [facility], [facility] [place], [place] [address] [facility], Floor L1 [place] [address] 10/12/2024 Procedure Pass [facility], [facility], [place] [address] [facility], Floor [address]1 [place] [address] 03/08/2025 8:50 AM EST Blood Draw Laboratory Services, [facility] [place] [address] [facility] 3rd [place] [address] Jair Gonzalez MD, PhD [address] [place] [address] Samm@d [email or web address] 03/08/2025 10:40 AM EST Appointment [facility], [facility], [place] [address] [facility], Floor [address]1 [place] [address] Jair Gonzalez MD, PhD [address] [place] [address] [email or web address] 03/08/2025 2:00 PM EST Office Visit [facility], [address], 10th [place] [address] Jair Gonzalez MD, PhD [address] [place] [address] Samm@d [email or web address] Health Maintenance Due Date Last [...] this topic Medical Devices Implanted Type Area Cd Storage And Materials Make Up Helper Device Identifier Shelf Expiration Date Model / Serial / Lot Port Implantable 9.5fr Infusion Dual Lumen Catheter [employer] - [id number] Implanted:Qty: 1 on 06/09/2017 by Ernie Viramontes MD at [facility] STANDARD Right: Chest Wall [employer] [id number] 01/28/2019 [id number] / / [id number] Description:RT IJ Marker Description:liver marker Procedures Procedure Name Priority Date/Time Associated Diagnosis Comments COMPREHENSIVE METABOLIC PANEL (CMP) Routine 10/11/2024 2:25 PM EDT Malignant neoplasm of colon, unspecified part of colon from Last 3 Months or Most Recently Relevant to Health Maintenance Results * (ABNORMAL) Comprehensive metabolic panel (10/11/2024 2:25 PM EDT) SODIUM 139 136 - 145 mmol/L [facility]# [id number] POTASSIUM 4.2 3.4 - 5.1 mmol/L [facility]# [id number] CHLORIDE 103 98 - 107 mmol/L [facility]# [id number] CO2 20(L) 22 - 31 mmol/L [facility]# [id number] BUN 27(H) 6 - 23 mg/dL [facility]# [id number] CREATININE 1.12 0.50 - 1.20 mg/dL [facility]# [id number] GLUCOSE 180(H) 70 - 100 mg/dL [facility]# [id number] ALBUMIN 3.4(L) 3.5 - 5.2 g/dL [facility]# [id number] TOTAL PROTEIN 6.0(L) 6.4 - 8.3 g/dL [facility]# [id number] CALCIUM 9.0 8.8 - 10.7 mg/dL [facility]# [id number] ALKALINE PHOSPHATASE 110 40 - 129 U/L [facility]# [id number] TOTAL BILIRUBIN 0.7 0.2 - 1.2 mg/dL [facility]# [id number] AST 33 <41 U/L [facility]# [id number] ALT 42(H) <42 U/L [facility]# [id number] GLOBULIN 2.6 2.3 - 4.2 g/dL [facility]# [id number] EGFR 69 >59 mL/min/1.7 3m2 [facility]# [id number] Comment:Estimated glomerular filtration rate calculated using the CKD-EPI refit equation. ANION GAP 16 7 - 17 mmol/L [facility]# [id number] Blood 10/11/2024 2:25 PM EDT 10/11/2024 2:26 PM EDT us Jair Gonzalez MD, PhD LAB BLOOD BKR ORDERABLE S Final Result [facility]# [id number] [address] [place] [address] from Last 3 Months or Most Recently Relevant to Health Maintenance Insurance MEDICARE PART A & B [facility] MEDICARE PART A & B [employer] OUT OF STATE PPO MEDICARE PART A & B [facility] PPO MEDICARE PART A & B MEDICARE PART A & B MEDICARE PART A & B [facility] OUT OF STATE PPO MEDICARE PART A & B [facility] PPO MEDICARE PART A & B MEDICARE PART A & B PPO Advance Directives For more information, please contact: [phone] (9AM - 5PM [facility], Wednesday-Wednesday) Documents on File Type Date Recorded Patient Pan Greaser Expl rosi Healthcare Proxy 01/25/2024 * Full [...] Code Status Confirmed With: Patient Care Teams Salesforce Business Analyst Relationship Specialty Start Date End Date Alban Abrams MD [address] [place] [address] PCP - General Internal Medicine 02/17/17 Self-Referred, Patient Referring Physician 02/17/17 Jair Gonzalez MD, PhD [address] [place] [phone] [email or web address] Primary Oncologist Oncology 02/17/17 Jair Gonzalez MD, PhD [address] [place] [address] [email or web address] Primary Oncologist Oncology 02/17/17 Raymon Norman MD [address] [place] [phone] [email or web address] Primary Oncologist Surgical Oncology 03/17/17 Shiloh Beck MD [address] [place] [address] [email or web address] [facility] 12/30/17 Additional Source Comments The information contained in this document represents components of the legal health record. It is not the complete legal health record.[facility]
--- OUTSIDE RECORDS SUMMARY | 2025-01-28 18:59 | XMS_ITS | Encounter Summary ---
Author Organization [facility] Address [address] [facility] [address] [place] [address] Phone Care Team Providers Care Machine Tester Name Role Phone Alban Abrams MD Primary Care Provider [phone] Self-Referred, Patient Unavailable Unavailab Jair Rodriguez MD, PhD Unavailable [phone] Jair Gonzalez MD, PhD Unavailable [phone] Raymon Norman MD Unavailable [phone] Shiloh Beck MD Unavailable [phone] Encounter Details Date Type Department Care Team (Late st Contact Info) Description 10/23/2021 Procedure Pass [facility], [facility] [place], [place] [address] [facility], Floor [address]1 [place] [address] Social History Tobacco Use Types Packs/Day Years [...] st Contact Info) Description 10/12/2024 Procedure Pass [facility] Imaging Department, [facility], [place] [address] [facility], Floor [address]1 [place] [address] 10/12/2024 Procedure Pass [facility] Imaging Department, [facility] [place] [address] [facility], Floor [address] [place] [address] 03/08/2025 8:50 AM EST Blood Draw Laboratory Services, [facility] [place] [address] [facility] 3rd [place] [address] Jair Gonzalez MD, PhD [address] [place] [phone] [email or web address] 03/08/2025 10:40 AM EST Appointment [facility] Imaging Department, [facility], [place] [address] [facility], Floor [address]1 [place] [address] Jair Gonzalez MD, PhD [address] [place] [phone] [email or web address] 03/08/2025 2:00 PM EST Office Visit [facility], [address], 10th [place] [address] Jair Gonzalez MD, PhD [address] [place] [phone] [email or web address] documented as of this encounter Visit Diagnoses Not on filedocumented in this encounter Care Teams Machine Tester Relationship Specialty Start Date End Date Alban Abrams MD [address] [place] [address] [place] [address] PCP - General Internal Medicine 02/17/17 Self-Referred, Patient Referring Physician 02/17/17 Jair Gonzalez MD, PhD [address] [place] [phone] [email or web address] Primary Oncologist Oncology 02/17/17 Jair Gonzalez MD, PhD [address] [place] [phone] [email or web address] Primary Oncologist Oncology 02/17/17 Raymon Nroman MD [address] [place] [address] [email or web address] u Primary Oncologist Surgical Oncology 03/17/17 Shiloh Beck MD [address] [place] [phone] [email or web address] Hematology and Oncology 12/30/17 documented as of this encounter Additional Source Comments The information contained in this document represents components of the legal health record. It is not the complete legal health record.[facility]
--- OUTSIDE RECORDS SUMMARY | 2025-01-28 18:59 | XMS_ITS | Encounter Summary ---
Author Organization [facility] Address [address] [facility] [address] [place] [address] Phone Care Team Providers Care Surveyor Name Role Phone Alban Abrams MD Primary Care Provider [phone] Self-Referred, Patient Unavailable Unavailab Jair Rodriguez MD, PhD Unavailable [phone] Jair Gonzalez MD, PhD Unavailable [phone] Raymon Norman MD Unavailable [phone] Shiloh Beck MD Unavailable [phone] Encounter Details Date Type Department Care Team (Late st Contact Info) Description 12/15/2022 Procedure Pass [facility] Periop 75 [place] [address] Social History Tobacco Use Types Packs/Day Years [...] 11:00 PM EDT Orly Milton RN * [place] Suicide Severity Rating Scale (Screener/Recent Self-Report) Question [...] Procedure Pass [facility] Imaging Department, [facility], [place] [address] [facility], [facility] [address]1 [place] [address] 10/12/2024 Procedure Pass [facility] Imaging Department, [facility], [place] [address] [facility], Floor [address]1 [place] [address] 03/08/2025 8:50 AM EST Blood Draw Laboratory Services, [facility] [place] [facility] [place] [address] [facility] 3rd [place] [address] Jair Gonzalez MD, PhD 450 [place] [address] [email or web address] [email or web address] 03/08/2025 10:40 AM EST Appointment [facility] Imaging Department, [facility], [place] [address] [facility], Floor [address]1 [place] [address] Jair Gonzalez MD, PhD [address] [place] [phone] [email or web address] [email or web address] 03/08/2025 2:00 PM EST Office Visit [facility], [facility] [address], 10th [place] [address] Jair Gonzalez MD, PhD [address] [place] [phone] [email or web address]@d [email or web address] documented as of this encounter Visit Diagnoses Not on filedocumented in this encounter Care Teams Surveyor Relationship Specialty Start Date End Date Alban Abrams MD [address] [place] [address] PCP - General Internal Medicine 02/17/17 Self-Referred, Patient Referring Physician 02/17/17 Jair Gonzalez MD, PhD [address] [place] [phone] [email or web address] Primary Oncologist Oncology 02/17/17 Jair Gonzalez MD, PhD [address] [place] [address] [email or web address] Primary Oncologist Oncology 02/17/17 Raymon Norman MD [address] [place] [address] [email or web address]. u Primary Oncologist Surgical Oncology 03/17/17 Shiloh Beck MD [address] [place] [phone] [email or web address] Hematology and Oncology 12/30/17 documented as of this encounter Additional Source Comments The information contained in this document represents components of the legal health record. It is not the complete legal health record.[facility]
--- OUTSIDE RECORDS SUMMARY | 2025-01-28 18:59 | XMS_ITS | Encounter Summary ---
Author Organization [facility] Address [address] [place] [address] Phone Care Team Providers Care Editorial Manager Name Role Phone Alban Abrams MD Primary Care Provider [phone] Self-Referred, Patient Unavailable Unavailab Jair Rodriguez MD, PhD Unavailable [phone] Jair Gonzalez MD, PhD Unavailable Raymon Norman MD Unavailable [phone] Shiloh Beck MD Unavailable [phone] Encounter Details Date Type Department Care Team (Late st Contact Info) Description 11/11/2022 Procedure Pass [facility] 75 [place] [address] Social History Tobacco Use Types Packs/Day Years [...] Info) Description 10/12/2024 Procedure Pass [facility] Imaging Department, [facility] [place] [address] [facility], Floor L1 [place] [address] 10/12/2024 Procedure Pass [facility] Imaging Department, [facility] [place] [address] [facility], Floor [address]1 [place] [address] 03/08/2025 8:50 AM EST Blood Draw Laboratory Services, [facility] [place] [address] [facility] 3rd [place] [address] Jair Gonzalez MD, PhD [address] [place] [phone] [email or web address] 03/08/2025 10:40 AM EST Appointment [facility] Imaging Department, [facility], [place] [address] [facility], [facility] [address]1 [place] [address] Jair Gonzalez MD, PhD [address] [place] [phone] [email or web address] 03/08/2025 2:00 PM EST Office Visit [facility], [address], 10th [place] [address] Jair Gonzalez MD, PhD [address] [place] [phone] Samm@d [email or web address] documented as of this encounter Visit Diagnoses Not on filedocumented in this encounter Care Teams Editorial Manager Relationship Specialty Start Date End Date Alban Abrams MD [address] [place] [address] [address] PCP - General Internal Medicine 02/17/17 Self-Referred, Patient Referring Physician 02/17/17 Jair Gonzalez MD, PhD [address] [place] [phone] [email or web address] Primary Oncologist Oncology 02/17/17 Jair Gonzalez MD, PhD [address] [place] [phone] [email or web address] Primary Oncologist Oncology 02/17/17 Raymon Norman MD [address] [place] [phone] [email or web address] Primary Oncologist Surgical Oncology 03/17/17 Shiloh Beck MD [address] [place] [address] [email or web address] [facility] Hematology and Oncology 12/30/17 documented as of this encounter Additional Source Comments The information contained in this document represents components of the legal health record. It is not the complete legal health record.[facility]
--- OUTSIDE RECORDS SUMMARY | 2025-01-28 18:59 | XMS_ITS | Encounter Summary ---
Author Organization [facility] Address [address] [facility] [address] [place] [address] Phone Care Team Providers Care Clinical Implementation Specialist Name Role Phone Alban Abrams MD Primary Care Provider Self-Referred, Patient Unavailable Unavailab Jair Rodriguez MD, PhD Unavailable [phone] Jair Gonzalez MD, PhD Unavailable [phone] Raymon Norman MD Unavailable [phone] Shiloh Beck MD Unavailable [phone] Encounter Details Date Type Department Care Team (Late st Contact Info) Description 11/16/2023 Procedure Pass [facility] Periop [address] [place] [address] Social History Tobacco Use Types Packs/Day Years [...] 8:13 PM EDT Kellie Mchugh RN * [place] Suicide Severity Rating Scale (Screener/Recent Self-Report) Question [...] 10/12/2024 Procedure Pass [facility], [facility], [place] [address] [facility], Floor [address]1 [place] [address] 10/12/2024 Procedure Pass [facility] Imaging Department, [facility], [place] [address] [facility], Floor L1 [place] [address] 03/08/2025 8:50 AM EST Blood Draw Laboratory Services, [facility] [place] [address] [facility] 3rd [place] [address] Jair Gonzalez MD, PhD [address] [place] [phone] [email or web address] 03/08/2025 10:40 AM EST Appointment [facility] Imaging Department, [facility], [place] [address] [facility], Floor [address]1 [place] [address] Jair Gonzalez MD, PhD [address] [place] [phone] Samm@d [facility] 03/08/2025 2:00 PM EST Office Visit [facility], [address], 10th [place] [address] Jair Gonzalez MD, PhD [address] [place] [phone] Samm@d [facility] documented as of this encounter Visit Diagnoses Not on filedocumented in this encounter Care Teams Clinical Implementation Specialist Relationship Specialty Start Date End Date Alban Abrams MD [address] [place] [address] [place] [address] PCP - General Internal Medicine 02/17/17 Self-Referred, Patient Referring Physician 02/17/17 Jair Gonzalez MD, PhD [address] [place] [phone] [email or web address] Primary Oncologist Oncology 02/17/17 Jair Gonzalez MD, PhD [address] [place] [phone] [email or web address] Primary Oncologist Oncology 02/17/17 Raymon Norman MD [address] [place] [phone] [email or web address] u Primary Oncologist Surgical Oncology 03/17/17 Shiloh Beck MD [address] [place] [phone] [email or web address] Hematology and Oncology 12/30/17 documented as of this encounter Additional Source Comments The information contained in this document represents components of the legal health record. It is not the complete legal health record.[facility]
--- OUTSIDE RECORDS SUMMARY | 2025-01-28 18:59 | XMS_ITS | Encounter Summary ---
Author Organization [facility] Address [address] [place] [address] Phone Care Team Providers Care Manager Garage Name Role Phone Alban Abrams MD Primary Care Provider [phone] Self-Referred, Patient Unavailable Unavailab Jair Rodriguez MD, PhD Unavailable [phone] Jair Gonzalez MD, PhD Unavailable [phone] Raymon Norman MD Unavailable [phone] Shiloh Beck MD Unavailable [phone] Encounter Details Date Type Department Care Team (Late st Contact Info) Description 09/29/2023 Procedure Pass [facility] 75 [place] [address] Social History Tobacco Use Types Packs/Day Years [...] Pass [facility] Imaging Department, [facility] [place] [address] [facility], Floor [address]1 [place] [address] 10/12/2024 Procedure Pass [facility] Imaging Department, [facility], [place] [address] [facility], Floor [address] [place] [address] 03/08/2025 8:50 AM EST Blood Draw Laboratory Services, [facility] [place] [address] [facility] 3rd [place] [address] Jair Gonzalez MD, PhD [address] [place] [phone] [email or web address] 03/08/2025 10:40 AM EST Appointment [facility] Imaging Department, [facility], [place] [address] [facility], [facility] [address]1 [place] [address] Jair Gonzalez MD, PhD [address] [place] [phone] [email or web address] 03/08/2025 2:00 PM EST Office Visit [facility], [address], 10th [place] [address] Jair Gonzalez MD, PhD [address] [place] [phone] [email or web address] [email or web address] documented as of this encounter Visit Diagnoses Not on filedocumented in this encounter Care Teams Manager Garage Relationship Specialty Start Date End Date Alban Abrams MD [address] [place] [address] [address] PCP - General Internal Medicine 02/17/17 Self-Referred, Patient Referring Physician 02/17/17 Jair Gonzalez MD, PhD [address] [place] [phone] [email or web address] Primary Oncologist Oncology 02/17/17 Jair Gonzalez MD, PhD [address] [place] [address] [email or web address] Primary Oncologist Oncology 02/17/17 Raymon Norman MD [address] [place] [address] [email or web address] Primary Oncologist Surgical Oncology 03/17/17 Shiloh Beck MD [address] [place] [address] [email or web address] hospitalMed[facility] Hematology and Oncology 12/30/17 documented as of this encounter Additional Source Comments The information contained in this document represents components of the legal health record. It is not the complete legal health record.[facility]
--- OUTSIDE RECORDS SUMMARY | 2025-01-28 18:59 | XMS_ITS | Encounter Summary ---
Author Organization [facility] Address [address] [facility] [address] [place] [address] Phone Care Team Providers Care Enrollment Eligibility Representative Name Role Phone Alban Abrams MD Primary Care Provider [phone] Self-Referred, Patient Unavailable Unavailab Jair Rodriguez MD, PhD Unavailable [phone] Jair Gonzalez MD, PhD Unavailable [phone] Raymon Norman MD Unavailable [phone] Shiloh Beck MD Unavailable [phone] Encounter Details Date Type Department Care Team (Late st Contact Info) Description 10/26/2023 Procedure Pass [facility] Periop [address] [place] [address] Social History Tobacco Use Types Packs/Day Years [...] 6:20 PM EDT Dawna Pozo RN * Angelina Suicide Severity Rating Scale (Screener/Recent Self-Report) Question [...] 10/12/2024 Procedure Pass [facility], [facility], [place] [address] [facility], Floor L1 [place] [address] 10/12/2024 Procedure Pass [facility] Sch[facility] Imaging Department, [facility] [place] [address] [facility], Floor L1 [place] [address] 03/08/2025 8:50 AM EST Blood Draw Laboratory Services, [facility] [place] [address] [facility] 3rd [place] [address] Jair Gonzalez MD, PhD [address] [place] [address] [email or web address] 03/08/2025 10:40 AM EST Appointment [facility] Imaging Department, [facility] [place] [address] [facility], Floor L1 [place] [address] Jair Gonzalez MD, PhD [address] [place] [address] Samm@d [email or web address] 03/08/2025 2:00 PM EST Office Visit [facility], [address], 10th [place] [address] Jair Gonzalez MD, PhD [address] [place] [address] Samm@d [email or web address] documented as of this encounter Visit Diagnoses Not on filedocumented in this encounter Care Teams Enrollment Eligibility Representative Relationship Specialty Start Date End Date Alban Abrams MD [address] [place] [address] [place] [address] PCP - General Internal Medicine 02/17/17 Self-Referred, Patient Referring Physician 02/17/17 Jair Gonzalez MD, PhD [address] [place] [address] [email or web address] Primary Oncologist Oncology 02/17/17 Jair Gonzalez MD, PhD [address] [place] [address] [email or web address] Primary Oncologist Oncology 02/17/17 Raymon Norman MD [address] [place] [address] [email or web address] Primary Oncologist Surgical Oncology 03/17/17 Shiloh Beck MD [address] [place] [address] [email or web address] Hematology and Oncology 12/30/17 documented as of this encounter Additional Source Comments The information contained in this document represents components of the legal health record. It is not the complete legal health record.[facility]
--- OUTSIDE RECORDS SUMMARY | 2025-01-28 18:59 | XMS_ITS | Encounter Summary ---
Author Organization [facility] Address [address] [place] [address] Phone Care Team Providers Care Director Of Culture Name Role Phone Alban Abrams MD Primary Care Provider Self-Referred, Patient Unavailable Unavailab Jair Rodriguez MD, PhD Unavailable [phone] Jair Gonzalez MD, PhD Unavailable [phone] Raymon Norman MD Unavailable [phone] Shiloh Beck MD Unavailable [phone] Encounter Details Date Type Department Care Team (Late st Contact Info) Description 10/09/2024 Procedure Pass [facility] [place] [place] [address] [facility] 3rd [place] [address] Social History Tobacco Use Types Packs/Day Years [...] Pass [facility]anda [facility] Imaging Department, [facility] [place] [address] [facility], Floor L1 [place] [address] 10/12/2024 Procedure Pass [facility] Imaging Department, [facility], [place] [address] [facility], Floor L1 [place] [address] 03/08/2025 8:50 AM EST Blood Draw Laboratory Services, [facility] [place] [address] [facility] 3rd [place] [address] Jair Gonzalez MD, PhD [address] [place] [address] Samm@d [facility] 03/08/2025 10:40 AM EST Appointment [facility] Imaging Department, [facility], [place] [address] [facility], Floor L1 [place] [address] Jair Gonzalez MD, PhD [address] [place] [address] Samm@[address] [email or web address] 03/08/2025 2:00 PM EST Office Visit [facility], [address], 10th [place] [address] Jair Gonzalez MD, PhD [address] [place] [address] Samm@d [facility] documented as of this encounter Visit Diagnoses Not on filedocumented in this encounter Care Teams Director Of Culture Relationship Specialty Start Date End Date Alban Abrams MD [address] [place] [address] [place] [address] PCP - General Internal Medicine 02/17/17 Self-Referred, Patient Referring Physician 02/17/17 Jair Gonzalez MD, PhD [address] [place] [address] Samm@[email or web address] Primary Oncologist Oncology 02/17/17 Jair Gonzalez MD, PhD [address] [place] [address] Samm@[email or web address]. [facility] Primary Oncologist Oncology 02/17/17 Raymon Norman MD [address] [place] [address] [email or web address] Primary Oncologist Surgical Oncology 03/17/17 Shiloh Beck MD [address] [place] [address] [email or web address] Hematology and Oncology 12/30/17 documented as of this encounter Additional Source Comments The information contained in this document represents components of the legal health record. It is not the complete legal health record.[facility]
--- OUTSIDE RECORDS SUMMARY | 2025-01-28 18:59 | XMS_ITS | Encounter Summary ---
Author Organization [facility] Address [address] [place] [address] Phone Care Team Providers Care Home Stereo Equipment Installer Name Role Phone Alban Abrams MD Primary Care Provider [phone] Self-Referred, Patient Unavailable Unavailab Jair Rodriguez MD, PhD Unavailable [phone] Jair Gonzalez MD, PhD Unavailable [phone] Raymon Norman MD Unavailable Shiloh Beck MD Unavailable [phone] Encounter Details Date Type Department Care Team (Late st Contact Info) Description 08/11/2023 Procedure Pass [facility] [address] [place] [address] Social History Tobacco Use Types Packs/Day Years [...] Info) Description 10/12/2024 Procedure Pass [facility] Imaging Department, [facility] [place] [address] [facility], Floor [address]1 [place] [address] 10/12/2024 Procedure Pass [facility] Imaging Department, [facility], [place] [address] [facility], Floor [address]1 [place] [address] 03/08/2025 8:50 AM EST Blood Draw Laboratory Services, [facility] [place] [address] [facility] 3rd [place] [address] Jair Gonzalez MD, PhD [address] [place] [address] Samm@[email or web address] 03/08/2025 10:40 AM EST Appointment [facility] Imaging Department, [facility] [place] [address] [facility], [facility] L1 [place] [address] Jair Gonzalez MD, PhD [address] [place] [address] [email or web address] 03/08/2025 2:00 PM EST Office Visit [facility], [address], 10th [place] [address] Jair Gonzalez MD, PhD [address] [place] [address] Samm@d [facility] documented as of this encounter Visit Diagnoses Not on filedocumented in this encounter Care Teams Home Stereo Equipment Installer Relationship Specialty Start Date End Date Alban Abrams MD [address] [place] [address] [address] PCP - General Internal Medicine 02/17/17 Self-Referred, Patient Referring Physician 02/17/17 Jair Gonzalez MD, PhD [address] [place] [address] [email or web address] Primary Oncologist Oncology 02/17/17 Jair Gonzalez MD, PhD [address] [place] [address] [email or web address] Primary Oncologist Oncology 02/17/17 Raymon Norman MD [address] [place] [address] [email or web address] Primary Oncologist Surgical Oncology 03/17/17 Shiloh Beck MD [address] [place] [address] [email or web address] [employer] [facility] hospital[facility] [employer] Hematology and Oncology 12/30/17 documented as of this encounter Additional Source Comments The information contained in this document represents components of the legal health record. It is not the complete legal health record.[facility]
--- OUTSIDE RECORDS SUMMARY | 2025-01-28 18:59 | XMS_ITS | Encounter Summary ---
Author Organization [facility] Address [address] [employer] [facility] [address] [place] [address] Phone Care Team Providers Care Epic Stork Specialists Name Role Phone Alban Abrams MD Primary Care Provider [phone] Self-Referred, Patient Unavailable Unavailab Jair Rodriguez MD, PhD Unavailable [phone] Jair Gonzalez MD, PhD Unavailable [phone] Raymon Norman MD Unavailable [phone] Shiloh Beck MD Unavailable [phone] Encounter Details Date Type Department Care Team (Late st Contact Info) Description 10/03/2019 Procedure Pass [facility] Imaging Department, [facility] [place] [place] [address] [facility], Floor [address]1 [place] [address] Social History Tobacco Use Types Packs/Day Years [...] Procedure Pass [facility] Imaging Department, [facility] [place] [address] [facility], Floor L1 [place] [address] 10/12/2024 Procedure Pass [facility] Imaging Department, [facility] [place] [address] [facility], Floor [address]1 [place] [address] 03/08/2025 8:50 AM EST Blood Draw Laboratory Services, [facility] [place] [address] [facility] 3rd [place] [address] Jair Gonzalez MD, PhD [address] [place] [address] [email or web address] [email or web address] 03/08/2025 10:40 AM EST Appointment [facility] Imaging Department, [facility] [place] [address] [facility], Floor [address]1 [place] [address] Jair Gonzalez MD, PhD [address] [place] [address] Samm@d [email or web address] 03/08/2025 2:00 PM EST Office Visit [facility], [address], 10th [place] [address] Jair Gonzalez MD, PhD [address] [place] [address] Samm@d [facility] documented as of this encounter Visit Diagnoses Not on filedocumented in this encounter Care Teams Epic [employer] Relationship Specialty Start Date End Date Alban Abrams MD [address] [place] [address] [place] [address] PCP - General Internal Medicine 02/17/17 Self-Referred, Patient Referring Physician 02/17/17 Jair Gonzalez MD, PhD [address] [place] [phone] [email or web address] Primary Oncologist Oncology 02/17/17 Jair Gonzalez MD, PhD [address] [place] [address] [email or web address] Primary Oncologist Oncology 02/17/17 Raymon Norman MD [address] [place] [address] [email or web address], [facility] Primary Oncologist Surgical Oncology 03/17/17 Shiloh Beck MD 5 [place] [address] [email or web address] Hematology and Oncology 12/30/17 documented as of this encounter Additional Source Comments The information contained in this document represents components of the legal health record. It is not the complete legal health record.[facility]
--- OUTSIDE RECORDS SUMMARY | 2025-01-28 18:59 | XMS_ITS | Encounter Summary ---
Author Organization [facility] Address [address] [facility] [address] [place] [address] Phone Care Team Providers Care Laminating Machine Offbearer Name Role Phone Alban Abrams MD Primary Care Provider [phone] Self-Referred, Patient Unavailable Unavailab Jair Rodriguez MD, PhD Unavailable [phone] Jair Gonzalez MD, PhD Unavailable [phone] Raymon Norman MD Unavailable [phone] Shiloh Beck MD Unavailable [phone] Encounter Details Date Type Department Care Team (Late st Contact Info) Description 03/11/2017 Procedure Pass [facility] OUTSIDE IMG [address] [place] [address] Social History Tobacco Use Types Packs/Day Years [...] Pass [facility]anda [facility] Imaging Department, [facility] [place] [address] [facility], Floor L1 [place] [address] 10/12/2024 Procedure Pass [facility] Imaging Department, [facility] [place] [address] [facility], Floor [address]1 [place] [address] 03/08/2025 8:50 AM EST Blood Draw Laboratory Services, [facility] [place] [address] [facility] 3rd [place] [address] Jair Gonzalez MD, PhD [address] [place] [phone] Samm@d [facility] 03/08/2025 10:40 AM EST Appointment [facility] Imaging Department, [facility] [place] [address] [facility], Floor [address]1 [place] [address] Jair Gonzalez MD, PhD [address] [place], [place] [phone] Samm@d [email or web address] 03/08/2025 2:00 PM EST Office Visit [facility], [address], 10th [place] [address] Jair Gonzalez MD, PhD [address] [place] [address] Samm@d [facility] documented as of this encounter Visit Diagnoses Not on filedocumented in this encounter Care Teams Laminating Machine Offbearer Relationship Specialty Start Date End Date Alban Abrams MD [address] [place] [address] [place] [address] PCP - General Internal Medicine 02/17/17 Self-Referred, Patient Referring Physician 02/17/17 Jair Gonzalez MD, PhD [address] [place] [address] Samm@[email or web address]. [facility] Primary Oncologist Oncology 02/17/17 Jair Gonzalez MD, PhD [address] [place] [address] [email or web address] Primary Oncologist Oncology 02/17/17 Raymon Norman MD [address] [place] [address] [email or web address]. u Primary Oncologist Surgical Oncology 03/17/17 Shiloh Beck MD [address] [place] [address] [employer] [facility]emat[facility] On[facility] 12/30/17 documented as of this encounter Additional Source Comments The information contained in this document represents components of the legal health record. It is not the complete legal health record.[facility]
--- OUTSIDE RECORDS SUMMARY | 2025-01-28 18:59 | XMS_ITS | Encounter Summary ---
Author Organization [facility] Address [address] [facility] [address] [place] [address] Phone Care Team Providers Care Outpatient Phlebotomist Name Role Phone Alban Abrams MD Primary Care Provider [phone] Self-Referred, Patient Unavailable Unavailab Jair Rodriguez MD, PhD Unavailable [phone] Jair Gonzalez MD, PhD Unavailable [phone] Raymon Norman MD Unavailable [phone] Shiloh Beck MD Unavailable [phone] Encounter Details Date Type Department Care Team (Late st Contact Info) Description 10/15/2017 Procedure Pass [facility] Imaging Department, [facility] [place] [address] [facility], Floor [address]1 [place] [address] Social History Tobacco Use Types Packs/Day Years [...] Contact Info) Description 10/12/2024 Procedure Pass [facility] Imaging Department, [facility] [place] [address] [facility], Floor [address]1 [place] [address] 10/12/2024 Procedure Pass [facility] Imaging Department, [facility] [place] [address] [facility], Floor [address]1 [place] [address] 03/08/2025 8:50 AM EST Blood Draw Laboratory Services, [facility] [place] [address] [facility] 3rd [place] [address] Jair Gonzalez MD, PhD [address] [place] [address] [email or web address] [email or web address] 03/08/2025 10:40 AM EST Appointment [facility] Imaging Department, [facility] [place] [address] [facility], Floor [address]1 [place] [address] Jair Gonzalez MD, PhD [address] [place] [address] Samm@d [email or web address] 03/08/2025 2:00 PM EST Office Visit [facility], [address], 10th [place] [address] Jair Gonzalez MD, PhD [address] [place] [phone] Samm@d [email or web address] documented as of this encounter Visit Diagnoses Not on filedocumented in this encounter Care Teams Outpatient Phlebotomist Relationship Specialty Start Date End Date Alban Abrams MD [address] [place] [address] [place] [address] PCP - General Internal Medicine 02/17/17 Self-Referred, Patient Referring Physician 02/17/17 Jair Gonzalez MD, PhD [address] [place] [address] [email or web address] Primary Oncologist Oncology 02/17/17 Jair Gonzalez MD, PhD [address] [place] [phone] Samm@[email or web address] Primary Oncologist Oncology 02/17/17 Raymon Norman MD [address] [place] [address] [email or web address] Primary Oncologist Surgical Oncology 03/17/17 Shiloh Beck MD 5 [place] [address] [email or web address] Hematology and Oncology 12/30/17 documented as of this encounter Additional Source Comments The information contained in this document represents components of the legal health record. It is not the complete legal health record.[facility]
--- OUTSIDE RECORDS SUMMARY | 2025-01-28 18:59 | XMS_ITS | Encounter Summary ---
Author Organization [facility] Address [address] [place] [address] Phone Care Team Providers Care Bird Sitter Name Role Phone Alban Abrams MD Primary Care Provider [phone] Self-Referred, Patient Unavailable Unavailab Jair Rodriguez MD, PhD Unavailable [phone] Jair Gonzalez MD, PhD Unavailable [phone] Raymon Norman MD Unavailable [phone] Shiloh Beck MD Unavailable [phone] Encounter Details Date Type Department Care Team (Late st Contact Info) Description 08/11/2023 Procedure Pass [facility] 75 [place] [address] Social History Tobacco Use Types Packs/Day Years [...] Description 10/12/2024 Procedure Pass [facility] Imaging Department, [facility] [place] [address] [facility], Floor L1 [place] [address] 10/12/2024 Procedure Pass [facility] Imaging Department, [facility], [place] [address] [facility], Floor L1 [place] [address] 03/08/2025 8:50 AM EST Blood Draw Laboratory Services, [facility] [place] 300 [facility] 3rd [place] [address] Jair Gonzalez MD, PhD [address] [place] [phone] [email or web address] 03/08/2025 10:40 AM EST Appointment [facility] Imaging Department, [facility], [place] [address] [facility], [facility] L1 [place] [address] Jair Gonzalez MD, PhD [address] [place] [phone] [email or web address] 03/08/2025 2:00 PM EST Office Visit [facility], [address], 10th [place] [address] Jair Gonzalez MD, PhD [address] [place] [phone] Samm@d [facility] documented as of this encounter Visit Diagnoses Not on filedocumented in this encounter Care Teams Bird Sitter Relationship Specialty Start Date End Date Alban Abrams MD [address] [place] [address] [address] PCP - General Internal Medicine 02/17/17 Self-Referred, Patient Referring Physician 02/17/17 Jair Gonzalez MD, PhD [address] [place] [phone] [email or web address] Primary Oncologist Oncology 02/17/17 Jair Gonzalez MD, PhD [address] [place] [phone] Samm@[email or web address] Primary Oncologist Oncology 02/17/17 Raymon Norman MD [address] [place] [address] [email or web address] Primary Oncologist Surgical Oncology 03/17/17 Shiloh Beck MD [address] [place] [address] [email or web address] 1 [facility], [employer] Hematology and Oncology 12/30/17 documented as of this encounter Additional Source Comments The information contained in this document represents components of the legal health record. It is not the complete legal health record.[facility]
--- OUTSIDE RECORDS SUMMARY | 2025-01-28 18:59 | XMS_ITS | Encounter Summary ---
Author Organization [facility] Address [address] [place] [address] Phone Care Team Providers Care Quality Assurance Practice Manager Name Role Phone Alban Abrams MD Primary Care Provider Self-Referred, Patient Unavailable Unavailab Jair Rodriguez MD, PhD Unavailable [phone] Jair Gonzalez MD, PhD Unavailable [phone] Raymon Norman MD Unavailable [phone] Shiloh Beck MD Unavailable [phone] Encounter Details Date Type Department Care Team (Late st Contact Info) Description 10/23/2021 Procedure Pass [facility] Imaging [facility], [facility] [place] [address], Floor [address] [place] [address] Social History Tobacco Use Types Packs/Day Years [...] Pass [facility] Imaging Department, [facility], [place] [address], [address] [place] [address] 10/12/2024 Procedure Pass [facility] Imaging Department, [facility], [place] [address], [address] [place] [address] 03/08/2025 8:50 AM EST Blood Draw Laboratory Services, [facility] [place] 300 [facility] 3rd [place] [address] Jair Gonzalez MD, PhD [address] [place] [phone] [email or web address] 03/08/2025 10:40 AM EST Appointment [facility] Imaging Department, [facility], [place] [address], [address] [place] [address] Jair Gonzalez MD, PhD [address] [place] [address] Samm@d [email or web address] 03/08/2025 2:00 PM EST Office Visit [facility], [address], 10th [place] [address] Jair Gonzalez MD, PhD [address] [place] [address] Samm@d [email or web address] documented as of this encounter Visit Diagnoses Not on filedocumented in this encounter Care Teams Quality Assurance Practice Manager Relationship Specialty Start Date End Date Alban Abrams MD [address] [place] [address] [place] [address] PCP - General Internal Medicine 02/17/17 Self-Referred, Patient Referring Physician 02/17/17 Jair Gonzalez MD, PhD [address] [place] [address] [email or web address] Primary Oncologist Oncology 02/17/17 Jair Gonzalez MD, PhD [address] [place] [address] [email or web address] Primary Oncologist Oncology 02/17/17 Raymon Norman MD [address] [place] [address] [email or web address]. u Primary Oncologist Surgical Oncology 03/17/17 Shiloh Beck MD [address] [place] [address] [email or web address] [facility] 12/30/17 documented as of this encounter Additional Source Comments The information contained in this document represents components of the legal health record. It is not the complete legal health record.[facility]
--- OUTSIDE RECORDS SUMMARY | 2025-01-28 18:59 | XMS_ITS | Encounter Summary ---
Author Organization [facility] Address [address] [place] [address] Phone Care Team Providers Care Nursing Unit Manager Name Role Phone Alban Abrams MD Primary Care Provider [phone] Self-Referred, Patient Unavailable Unavailab Jair Rodriguez MD, PhD Unavailable Jair Gonzalez MD, PhD Unavailable [phone] Raymon Norman MD Unavailable [phone] Shiloh Beck MD Unavailable [phone] Encounter Details Date Type Department Care Team (Late st Contact Info) Description 01/05/2024 Procedure Pass [facility] 75 [place] [address] Social History Tobacco Use Types Packs/Day Years [...] Procedure Pass [facility] Imaging Department, [facility] [place] [address] [facility], Floor [address]1 [place] [address] 10/12/2024 Procedure Pass [facility] Imaging Department, [facility] [place] [address] [facility], Floor [address]1 [place] [address] 03/08/2025 8:50 AM EST Blood Draw Laboratory Services, [facility] [place] [facility] [place] [address] [address] Jair Gonzalez MD, PhD 450 [place] [address] [email or web address]@[email or web address] 03/08/2025 10:40 AM EST Appointment [facility], [facility] [place] [facility], Floor [address]1 [place] [address] Jair Gonzalez MD, PhD [address] [place] [address] [email or web address]@[email or web address] 03/08/2025 2:00 PM EST Office Visit [facility], [facility] 450 [facility], 10th [place] [address] Jair Gonzalez MD, PhD [address] [place] [address] [email or web address] documented as of this encounter Visit Diagnoses Not on filedocumented in this encounter Care Teams Nursing Unit Manager Relationship Specialty Start Date End Date Alban Abrams MD [address] [place] [address] [place] [address] PCP - General Internal Medicine 02/17/17 Self-Referred, Patient Referring Physician 02/17/17 Jair Gonzalez MD, PhD [address] [place] [address] [email or web address] Primary Oncologist Oncology 02/17/17 Jair Gonzalez MD, PhD [address] [place] [address] [email or web address] Primary Oncologist Oncology 02/17/17 Raymon Norman MD [address] [place] [address] [email or web address] u Primary Oncologist Surgical Oncology 03/17/17 Shiloh Beck MD [address] [place] [address] [email or web address] [facility] 12/30/17 documented as of this encounter Additional Source Comments The information contained in this document represents components of the legal health record. It is not the complete legal health record.[facility]
--- OUTSIDE RECORDS SUMMARY | 2025-01-28 18:59 | XMS_ITS | Encounter Summary ---
Author Organization [facility] Address [address] [facility] [address] [place] [address] Phone Care Team Providers Care City Plant Supervisor Name Role Phone Alban Abrams MD Primary Care Provider [phone] Self-Referred, Patient Unavailable Unavailab Jair Rodriguez MD, PhD Unavailable [phone] Jair Gonzalez MD, PhD Unavailable [phone] Raymon Norman MD Unavailable [phone] Shiloh Beck MD Unavailable [phone] Encounter Details Date Type Department Care Team (Late st Contact Info) Description 03/11/2017 Procedure Pass [facility] 450 [place] [address] Social History Tobacco Use Types Packs/Day Years [...] Pass [facility], [facility] [place] [address] [facility], Floor [address]1 [place] [address] 10/12/2024 Procedure Pass [facility] Imaging Department, [facility], [place] [address] [facility], Floor [address]1 [place] [address] 03/08/2025 8:50 AM EST Blood Draw Laboratory Services, [facility] [place] 300 [facility] 3rd [place] [address] Jair Gonzalez MD, PhD [address] [place] [phone] Samm@d [email or web address] 03/08/2025 10:40 AM EST Appointment [facility] Imaging Department, [facility] [place] [address] [facility], Floor [address]1 [place] [address] Jair Gonzalez MD, PhD [address] [place], [place] [phone] Samm@d [email or web address] 03/08/2025 2:00 PM EST Office Visit [facility], [address], 10th [place] [address] Jair Gonzalez MD, PhD [address] [place] [address] [email or web address] [email or web address] documented as of this encounter Visit Diagnoses Not on filedocumented in this encounter Care Teams City Plant Supervisor Relationship Specialty Start Date End Date Alban Abrams MD [address] [place] [address] [place] [address] PCP - General Internal Medicine 02/17/17 Self-Referred, Patient Referring Physician 02/17/17 Jair Gonzalez MD, PhD [address] [place] [address] [email or web address]. [facility] Primary Oncologist Oncology 02/17/17 Jair Gonzalez MD, PhD [address] [place] [address] [email or web address] Primary Oncologist Oncology 02/17/17 Raymon Norman MD [address] [place] [address] [email or web address] u Primary Oncologist Surgical Oncology 03/17/17 Shiloh Beck MD [address] [place] [address] [email or web address] [facility] 12/30/17 documented as of this encounter Additional Source Comments The information contained in this document represents components of the legal health record. It is not the complete legal health record.[facility]
--- OUTSIDE RECORDS SUMMARY | 2025-01-28 18:59 | XMS_ITS | Encounter Summary ---
Author Organization [facility] Address [address] [place] [address] Phone Care Team Providers Care 3D Animator Name Role Phone Alban Abrams MD Primary Care Provider [phone] Self-Referred, Patient Unavailable Unavailab Jair Rodriguez MD, PhD Unavailable [phone] Jair Gonzalez MD, PhD Unavailable [phone] Raymon Norman MD Unavailable [phone] Shiloh Beck MD Unavailable [phone] Encounter Details Date Type Department Care Team (Late st Contact Info) Description 05/26/2023 Procedure Pass [facility] 70 [place] [address] Social History Tobacco Use Types Packs/Day Years [...] Procedure Pass [facility] [place] [address] [facility], Floor [address]1 [place] [address] 10/12/2024 Procedure Pass [facility], [facility] [place] [address] [facility], Floor [address]1 [place] [address] 03/08/2025 8:50 AM EST Blood Draw Laboratory Services, [facility] [place] 300 [facility] 3rd [place] [address] Jair Gonzalez MD, PhD [address] [place] [address] [email or web address] 03/08/2025 10:40 AM EST Appointment [facility], [facility] [place] [address] [facility], Floor [address]1 [place] [address] Jair Gonzalez MD, PhD [address] [place] [phone] [email or web address] 03/08/2025 2:00 PM EST Office Visit [facility], [address], 10th [place] [address] Jair Gonzalez MD, PhD [address] [place] [address] Samm@[email or web address] documented as of this encounter Visit Diagnoses Not on filedocumented in this encounter Care Teams 3D Animator Relationship Specialty Start Date End Date Alban Abrams MD [address] [place] [address] [address] PCP - General Internal Medicine 02/17/17 Self-Referred, Patient Referring Physician 02/17/17 Jair Gonzalez MD, PhD [address] [place] [phone] [email or web address] Primary Oncologist Oncology 02/17/17 Jair Gonzalez MD, PhD [address] [place] [address] [email or web address] Primary Oncologist Oncology 02/17/17 Raymon Norman MD [address] [place] [address] [email or web address] Primary Oncologist Surgical Oncology 03/17/17 Shiloh Bcek MD [address] [place] [address] [email or web address] [employer] Hematology and Oncology 12/30/17 documented as of this encounter Additional Source Comments The information contained in this document represents components of the legal health record. It is not the complete legal health record.[facility]
--- OUTSIDE RECORDS SUMMARY | 2025-01-28 18:59 | XMS_ITS | Encounter Summary ---
Author Organization [facility] Address [address] [place] [address] Phone Care Team Providers Care Online Marketing Manager Name Role Phone Alban Abrams MD Primary Care Provider [phone] Self-Referred, Patient Unavailable Unavailab Jair Rodriguez MD, PhD Unavailable [phone] Jair Gonzalez MD, PhD Unavailable [phone] Raymon Norman MD Unavailable [phone] Shiloh Beck MD Unavailable [phone] Encounter Details Date Type Department Care Team (Late st Contact Info) Description 10/09/2024 Procedure Pass [facility] [place] [facility] [place] [address] [facility] 3rd [place] [address] Social History Tobacco Use Types Packs/Day Years [...] Pass [facility] Imaging Department, [facility] [place] [address] [facility], Floor [address]1 [place] [address] 10/12/2024 Procedure Pass [facility] Imaging Department, [facility], [place] [address] [facility], Floor [address]1 [place] [address] 03/08/2025 8:50 AM EST Blood Draw Laboratory Services, [facility] [place] 300 [facility] 3rd [place] [address] Jair Gonzalez MD, PhD [address] [place] [phone] Samm@d [email or web address] 03/08/2025 10:40 AM EST Appointment [facility] Imaging Department, [facility], [place] [address] [facility], Floor [address]1 [place] [address] Jair Gonzalez MD, PhD [address] [place] [address] Samm@d [email or web address] 03/08/2025 2:00 PM EST Office Visit [facility], [address], 10th [place] [address] Jair Gonzalez MD, PhD [address] [place] [phone] Samm@d [email or web address] documented as of this encounter Visit Diagnoses Not on filedocumented in this encounter Care Teams Online Marketing Manager Relationship Specialty Start Date End Date Alban Abrams MD [address] [place] [address] [place] [address] PCP - General Internal Medicine 02/17/17 Self-Referred, Patient Referring Physician 02/17/17 Jair Gonzalez MD, PhD [address] [place] [phone] Samm@[email or web address] Primary Oncologist Oncology 02/17/17 Jair Gonzalez MD, PhD [address] [place] [phone] Samm@[email or web address] Primary Oncologist Oncology 02/17/17 Raymon Norman MD [address] [place] [address] [email or web address] Primary Oncologist Surgical Oncology 03/17/17 Shiloh Beck MD [address] [place] [address] [email or web address] [facility] On[facility] 12/30/17 documented as of this encounter Additional Source Comments The information contained in this document represents components of the legal health record. It is not the complete legal health record.[facility]
--- OUTSIDE RECORDS SUMMARY | 2025-01-28 18:59 | XMS_ITS | Encounter Summary ---
Author Organization [facility] Address [address] [facility] [address] [place] [address] Phone Care Team Providers Care Human Relations Professor Name Role Phone Alban Abrams MD Primary Care Provider [phone] Self-Referred, Patient Unavailable Unavailab Jair Rodriguez MD, PhD Unavailable [phone] Jair Gonzalez MD, PhD Unavailable [phone] Raymon Norman MD Unavailable [phone] Shiloh Beck MD Unavailable Encounter Details Date Type Department Care Team (Late Contact Info) Description 01/10/2019 Procedure Pass [facility] Endoscopy Department 75 [place] [address] Social History Tobacco Use Types Packs/Day Years [...] [facility] Imaging Department, [facility], [place] [address] [facility], Floor [address]1 [place] [address] 10/12/2024 Procedure Pass [facility] Imaging Department, [facility], [place] [address] [facility], Floor [address]1 [place] [address] 03/08/2025 8:50 AM EST Blood Draw Laboratory Services, [facility] [place] 300 [facility] 3rd [place] [address] Jair Gonzalez MD, PhD [address] [place] [phone] Samm@d [email or web address] 03/08/2025 10:40 AM EST Appointment [facility] Imaging Department, [facility], [place] [address] [facility], Floor [address]1 [place] [address] Jair Gonzalez MD, PhD [address] [place] [phone] Samm@d [email or web address] 03/08/2025 2:00 PM EST Office Visit [facility], [address], 10th [place] [address] Jair Gonzalez MD, PhD [address] [place] [phone] Samm@d [email or web address] documented as of this encounter Visit Diagnoses Not on filedocumented in this encounter Care Teams Human Relations Professor Relationship Specialty Start Date End Date Alban Abrams MD [address] [place] [address] [place] [address] PCP - General Internal Medicine 02/17/17 Self-Referred, Patient Referring Physician 02/17/17 Jair Gonzalez MD, PhD 450 [place] [address] [email or web address] Primary Oncologist Oncology 02/17/17 Jair Gonzalez MD, PhD [address] [place] [phone] [email or web address] Primary Oncologist Oncology 02/17/17 Raymon Norman MD [address] [place] [address] [email or web address] u Primary Oncologist Surgical Oncology 03/17/17 Shiloh Beck MD [address] [place] [address] [email or web address] [facility] On[facility] 12/30/17 documented as of this encounter Additional Source Comments The information contained in this document represents components of the legal health record. It is not the complete legal health record.[facility]
--- OUTSIDE RECORDS SUMMARY | 2025-01-28 18:59 | XMS_ITS | Encounter Summary ---
Author Organization [facility] Address [address] [facility] [address] [place] [address] Phone Care Team Providers Care Ski Maker Name Role Phone Alban Abrams MD Primary Care Provider [phone] Self-Referred, Patient Unavailable Unavailab Jair Rodriguez MD, PhD Unavailable Jair Gonzalez MD, PhD Unavailable [phone] Raymon Norman MD Unavailable [phone] Shiloh Beck MD Unavailable [phone] Encounter Details Date Type Department Care Team (Late st Contact Info) Description 10/03/2019 Procedure Pass [facility] Imaging Department, [facility] [place], [place] [address] [facility], Floor L1 [place] [address] Social History Tobacco Use Types Packs/Day Years [...] st Contact Info) Description 10/12/2024 Procedure Pass [facility], [facility] [place] [address] [facility], Floor L1 [place] [address] 10/12/2024 Procedure Pass [facility] Imaging Department, [facility] [place] [address] [facility], Floor L1 [place] [address] 03/08/2025 8:50 AM EST Blood Draw Laboratory Services, [facility] [place] 300 [facility] 3rd [place] [address] Jair Gonzalez MD, PhD [address] [place] [phone] [email or web address] 03/08/2025 10:40 AM EST Appointment [facility] Imaging Department, [facility] [place] [address] [facility], Floor [address]1 [place] [address] Jair Gonzalez MD, PhD [address] [place] [phone] Samm@[email or web address] 03/08/2025 2:00 PM EST Office Visit [facility], [address], 10th [place] [address] Jair Gonzalez MD, PhD [address] [place] [phone] Samm@[email or web address] documented as of this encounter Visit Diagnoses Not on filedocumented in this encounter Care Teams Ski Maker Relationship Specialty Start Date End Date Alban Abrams MD [address] [place] [address] [place] [address] PCP - General Internal Medicine 02/17/17 Self-Referred, Patient Referring Physician 02/17/17 Jair Gonzalez MD, PhD [address] [place] [address] [email or web address] Primary Oncologist Oncology 02/17/17 Jair Gonzalez MD, PhD [address] [place] [address] [email or web address] Primary Oncologist Oncology 02/17/17 Ryamon Norman MD [address] [place] [address] [email or web address] Primary Oncologist Surgical Oncology 03/17/17 Shiloh Beck MD 5 [place] [address] [email or web address] [facility] 12/30/17 documented as of this encounter Additional Source Comments The information contained in this document represents components of the legal health record. It is not the complete legal health record.[facility]
--- OUTSIDE RECORDS SUMMARY | 2025-01-28 18:59 | XMS_ITS | Encounter Summary ---
Author Organization [facility] Address [address] [facility] [address] [place] [address] Phone Care Team Providers Care Mud Grinder Name Role Phone Alban Abrams MD Primary Care Provider [phone] Self-Referred, Patient Unavailable Unavailab Jair Rodriguez MD, PhD Unavailable [phone] Jair Gonzalez MD, PhD Unavailable [phone] Raymon Norman MD Unavailable [phone] Shiloh Beck MD Unavailable [phone] Encounter Details Date Type Department Care Team (Late st Contact Info) Description 04/02/2022 Procedure Pass [facility] Imaging [facility], [facility] [place] [address] [facility], Floor [address]1 [place] [address] Social History Tobacco Use Types Packs/Day Years [...] Info) Description 10/12/2024 Procedure Pass [facility] Imaging Department, [facility] [place] [address] [facility], Floor [address]1 [place] [address] 10/12/2024 Procedure Pass [facility] Imaging Department, [facility] [place] [address] [facility], Floor [address]1 [place] [address] 03/08/2025 8:50 AM EST Blood Draw Laboratory Services, [facility] 300 [facility] 3rd [place] [address] Jair Gonzalez MD, PhD [address] [place] [phone] [email or web address] [email or web address] 03/08/2025 10:40 AM EST Appointment [facility] Imaging Department, [facility], [place] [address] [facility], Floor [address]1 [place] [address] Jair Gonzalez MD, PhD [address] [place] [phone] Samm@d [email or web address] 03/08/2025 2:00 PM EST Office Visit [facility], [address], 10th [place] [address] Jair Gonzalez MD, PhD [address] [place] [address] [email or web address] [email or web address] documented as of this encounter Visit Diagnoses Not on filedocumented in this encounter Care Teams Mud Grinder Relationship Specialty Start Date End Date Alban Abarms MD [address] [place] [address] [place] [address] PCP - General Internal Medicine 02/17/17 Self-Referred, Patient Referring Physician 02/17/17 Jair Gonzalez MD, PhD [address] [place] [address] [email or web address] Primary Oncologist Oncology 02/17/17 Jair Gonzalez MD, PhD [address] [place] [address] [email or web address] Primary Oncologist Oncology 02/17/17 Raymon Norman MD [address] [place] [address] [email or web address] u Primary Oncologist Surgical Oncology 03/17/17 Shiloh Beck MD [address] [place] [address] [email or web address] 12/30/17 documented as of this encounter Additional Source Comments The information contained in this document represents components of the legal health record. It is not the complete legal health record.[facility]
--- OUTSIDE RECORDS SUMMARY | 2025-01-28 18:59 | XMS_ITS | Encounter Summary ---
Author Organization [facility] Address [address] [facility] [address] [place] [address] Phone Care Team Providers Care Last Waxer Name Role Phone Alban Abrams MD Primary Care Provider [phone] Self-Referred, Patient Unavailable Unavailab Jair Rodriguez MD, PhD Unavailable [phone] Jair Gonzalez MD, PhD Unavailable [phone] Raymon Norman MD Unavailable [phone] Shiloh Beck MD Unavailable [phone] Encounter Details Date Type Department Care Team (Late st Contact Info) Description 10/24/2020 Procedure Pass [facility], MRI 300 [facility] 4th [place] [address] Social History Tobacco Use Types Packs/Day Years [...] [facility] Imaging Department, [facility], [place] [address] [facility], Floor L1 [place] [address] 10/12/[address] [facility] Imaging Department, [facility] [place] [address] [facility], Floor L1 [place] [address] 03/08/2025 8:50 AM EST Blood Draw Laboratory Services, [facility] [place] 300 [facility] 3rd [place] [address] Jair Gonzalez MD, PhD [address] [place] [phone] [email or web address] 03/08/2025 10:40 AM EST Appointment [facility] Imaging Department, [facility], [place] [address] [facility], Floor [address]1 [place] [address] Jair Gonzalez MD, PhD [address] [place] [phone] [email or web address] [email or web address] 03/08/2025 2:00 PM EST Office Visit [facility], [address], 10th [place] [address] Jair Gonzalez MD, PhD [address] [place] [phone] [email or web address] documented as of this encounter Visit Diagnoses Not on filedocumented in this encounter Care Teams Last Waxer Relationship Specialty Start Date End Date Alban Abrams MD [address] [place] [address] [place] [address] PCP - General Internal Medicine 02/17/17 Self-Referred, Patient Referring Physician 02/17/17 Jair Gonzalez MD, PhD [address] [place] [phone] [email or web address] [email or web address] Primary Oncologist Oncology 02/17/17 Jair Gonzalez MD, PhD [address] [place] [address] [email or web address] Primary Oncologist Oncology 02/17/17 Raymon Norman MD [address] [place] [phone] [email or web address] u Primary Oncologist Surgical Oncology 03/17/17 Shiloh Beck MD [address] [place] [address] [email or web address] [facility] 12/30/17 documented as of this encounter Additional Source Comments The information contained in this document represents components of the legal health record. It is not the complete legal health record.[facility]
--- OUTSIDE RECORDS SUMMARY | 2025-01-28 18:59 | XMS_ITS | Encounter Summary ---
Author Organization [facility] Address [address] [facility] [address] [place] [address] Phone Care Team Providers Care Slitter Operator Name Role Phone Alban Abrams MD Primary Care Provider [phone] Self-Referred, Patient Unavailable Unavailab Jair Rodriguez MD, PhD Unavailable [phone] Jair Gonzalez MD, PhD Unavailable [phone] Raymon Norman MD Unavailable [phone] Shiloh Beck MD Unavailable [phone] Reason for Referral * MRI/CAT Scan - Closed Specialty Diagnoses / Procedures Referred By Alessandra t Referred To Contact Radiology Diagnoses Liver lesion Procedures CT Abdomen/Pelvis CT Abdomen Only (No Pelvis) CHG CT SCAN OF ABDOMEN COMBO CHG CT SCAN,ABDOMENT AND PELVIS,W CONTRAST Nikos Mendez MD Phone: tel: fax: mailto:[email or web address] Referral ID Status Reason Start Date Expiration Date Visits Re quested Visits Authorized [id number] Closed 08/30/2023 02/26/2024 1 1 Encounter Details Date Type Department Care Team (Late st Contact Info) Description 08/30/2023 Ancillary Orders [facility] Radiology [facility] [address] [facility], 3rd Floor, [place] [address] Nikos Mendez MD [address] [place] [address] [email or web address] Liver lesion (Primary Dx) Social History [...] 10/12/2024 Procedure Pass [facility] Imaging Department, [facility] [place], [place] [address] [facility], Floor L1 [place] [address] 10/12/2024 Procedure Pass [facility] Imaging [facility], [facility] [place] [address] [facility], Floor L1 [place] [address] 03/08/2025 8:50 AM EST Blood Draw Laboratory Services, [facility] [place] [facility] [place] 300 [facility] 3rd [place] [address] Jair Gonzalez MD, PhD 450 [place] [address] [email or web address] 03/08/2025 10:40 AM EST Appointment [facility], [facility], [place] [address] [facility], Floor L1 [place] [address] Jair Gonzalez MD, PhD [address] [place] [address] Samm@d [facility] 03/08/2025 2:00 PM EST Office Visit [facility], [address], 10th [place] [address] Jair Gonzalez MD, PhD [address] [place] [address] Samm@d [facility] documented as of this [...] liver documented in this encounter Care Teams Slitter Operator Relationship Specialty Start Date End Date Alban Abrams MD [address] [place] [address] [place] [address] PCP - General Internal Medicine 02/17/17 Self-Referred, Patient Referring Physician 02/17/17 Jair Gonzalez MD, PhD [address] [place] [phone] [email or web address] Primary Oncologist Oncology 02/17/17 Jair Gonzalez MD, PhD [address] [place] [phone] [email or web address] Primary Oncologist Oncology 02/17/17 Raymon Norman MD [address] [place] [address] [email or web address] Primary Oncologist Surgical Oncology 03/17/17 Shiloh Beck MD [address] [place] [address] [email or web address] Hematology and Oncology 12/30/17 documented as of this encounter Additional Source Comments The information contained in this document represents components of the legal health record. It is not the complete legal health record.[facility]
--- OUTSIDE RECORDS SUMMARY | 2025-01-28 18:59 | XMS_ITS | Encounter Summary ---
Author Organization [facility] Address [address] [place] [address] Phone Care Team Providers Care Database Administration Project Manager Name Role Phone Alban Abrams MD Primary Care Provider [phone] Self-Referred, Patient Unavailable Unavailab Jair Rodriguez MD, PhD Unavailable [phone] Jair Gonzalez MD, PhD Unavailable [phone] Raymon Norman MD Unavailable [phone] Shiloh Beck MD Unavailable Encounter Details Date Type Department Care Team (Late st Contact Info) Description 09/23/2023 Procedure Pass [facility] [place] [address] [facility], Floor L1 [place] [address] Social History Tobacco Use Types Packs/Day Years [...] Procedure Pass [facility] Imaging Department, [facility] [place] [address] [facility], Floor L1 [place] [address] 10/12/2024 Procedure Pass [facility] Imaging Department, [facility] [address] [facility], Floor L1 [place] [address] 03/08/2025 8:50 AM EST Blood Draw Laboratory Services, [facility] [place] 300 [facility] 3rd [place] [address] Jair Gonzalez MD, PhD [address] [place] [phone] [email or web address] 03/08/2025 10:40 AM EST Appointment [facility] Imaging Department, [facility], [place] [address] [facility], Floor L1 [place] [address] Jair Gonzalez MD, PhD [address] [place] [phone] Samm@[email or web address] 03/08/2025 2:00 PM EST Office Visit [facility], [address], 10th [place] [address] Jair Gonzalez MD, PhD [address] [place] [phone] Samm@d [email or web address] documented as of this encounter Visit Diagnoses Not on filedocumented in this encounter Care Teams Database Administration Project Manager Relationship Specialty Start Date End Date Alban Abrams MD [address] [place] [address] [address] PCP - General Internal Medicine 02/17/17 Self-Referred, Patient Referring Physician 02/17/17 Jair Gonzalez MD, PhD [address] [place] [phone] [email or web address] Primary Oncologist Oncology 02/17/17 Jair Gonzalez MD, PhD [address] [place] [phone] Samm@[email or web address] Primary Oncologist Oncology 02/17/17 Raymon Norman MD [address] [place] [address] [email or web address] Primary Oncologist Surgical Oncology 03/17/17 Shiloh Beck MD [address] [place] [address] [email or web address] Hematology and Oncology 12/30/17 documented as of this encounter Additional Source Comments The information contained in this document represents components of the legal health record. It is not the complete legal health record.[facility]
--- OUTSIDE RECORDS SUMMARY | 2025-01-28 18:59 | XMS_ITS | Encounter Summary ---
Author Organization [facility] Address [address] [facility] [address] [place] [address] Phone Care Team Providers Care Senior Manufacturing Technician Name Role Phone Alban Abrams MD Primary Care Provider [phone] Self-Referred, Patient Unavailable Unavailab Jair Rodriguez MD, PhD Unavailable [phone] Jair Gonzalez MD, PhD Unavailable [phone] Raymon Norman MD Unavailable [phone] Shiloh Beck MD Unavailable [phone] Encounter Details Date Type Department Care Team (Late st Contact Info) Description 02/09/2023 Procedure Pass [facility] Periop [address] [place] [address] Social History Tobacco Use Types Packs/Day Years [...] 02/09/2023 6:00 PM Ruth Cool RN * Snyder Suicide Severity Rating Scale (Screener/Recent Self-Report) Question [...] 10/12/2024 Procedure Pass [facility] Imaging Department, [facility] [place] [address] [facility], Floor L1 [place] [address] 10/12/2024 Procedure Pass [facility] Imaging Department, [facility] [place] [address] [facility], Floor L1 [place] [address] 03/08/2025 8:50 AM EST Blood Draw Laboratory Services, [facility] [place] [facility] [place] 300 [facility] 3rd [place] [address] Jair Gonzalez MD, PhD 450 [place] [address] Samm@d [email or web address] 03/08/2025 10:40 AM EST Appointment [facility] Imaging Department, [facility], [place] [address] [facility], Floor [address] [address] Jair Gonzalez MD, PhD [address] [place] [phone] Samm@[email or web address] 03/08/2025 2:00 PM EST Office [facility] [address], 10th [place] [address] Jair Gonzalez MD, PhD [address] [place] [phone] Samm@[email or web address] documented as of this encounter Visit Diagnoses Not on filedocumented in this encounter Care Teams Senior Manufacturing Technician Relationship Specialty Start Date End Date Alban Abrams MD [address] [place] [address] [place] [address] PCP - General Internal Medicine 02/17/17 Self-Referred, Patient Referring Physician 02/17/17 Jair Gonzalez MD, PhD [address] [place] [phone] [email or web address] Primary Oncologist Oncology 02/17/17 Jair Gonzalez MD, PhD [address] [place] [phone] [email or web address] Primary Oncologist Oncology 02/17/17 Raymon Norman MD [address] [place] [phone] [email or web address] u Primary Oncologist Surgical Oncology 03/17/17 Shiloh Beck MD [address] [place] [address] [email or web address] Hematology and Oncology 12/30/17 documented as of this encounter Additional Source Comments The information contained in this document represents components of the legal health record. It is not the complete legal health record.[facility]
--- OUTSIDE RECORDS SUMMARY | 2025-01-28 18:59 | XMS_ITS ---
Author Organization [facility] Address [address] [facility] [address] [place] [address] Phone Care Team Providers Care Flexographic Press Plate Setter Name Role Phone Alban Abrams MD Primary Care Provider [phone] Self-Referred, Patient Unavailable Unavailab Jair Rodriguez MD, PhD Unavailable [phone] Jair Gonzalez MD, PhD Unavailable [phone] Raymon Norman MD Unavailable [phone] Shiloh Beck MD Unavailable [phone] Active Problems Problem Noted Date Diagnosed [...]
--- OUTSIDE RECORDS SUMMARY | 2025-01-28 18:59 | XMS_ITS | Encounter Summary ---
Author Organization [facility] Address [address] [facility] [address] [place] [address] Phone Care Team Providers Care Film Drying Machine Operator Name Role Phone Alban Abrams MD Primary Care Provider [phone] Self-Referred, Patient Unavailable Unavailab Jair Rodriguez MD, PhD Unavailable [phone] Jair Gonzalez MD, PhD Unavailable [phone] Raymon Norman MD Unavailable [phone] Shiloh Beck MD Unavailable [phone] Encounter Details Date Type Department Care Team (Late st Contact Info) Description 04/02/2022 Procedure Pass [facility] Imaging [facility], [facility] [place] 450 [facility], Floor L1 [place] [address] Social History Tobacco Use Types Packs/Day Years [...] 10/12/2024 [facility] Pass [facility], [facility] [place] [address] [facility], Floor L1 [place] [address] 10/12/2024 Procedure Pass [facility] Imaging Department, [facility], [place] [address] [facility], Floor L1 [place] [address] 03/08/2025 8:50 AM EST Blood Draw Laboratory Services, [facility] [place] 300 [facility] 3rd [place] [address] Jair Gonzalez MD, PhD [address] [place] [phone] [email or web address] [email or web address] 03/08/2025 10:40 AM EST Appointment [facility] Imaging Department, [facility], [place] [address] [facility], Floor L1 [place] [address] Jair Gonzalez MD, PhD [address] [place] [phone] Samm@d [email or web address] 03/08/2025 2:00 PM EST Office Visit [facility], [address], 10th [place] [address] Jair Gonzalez MD, PhD [address] [place] [phone] Samm@d [email or web address] documented as of this encounter Visit Diagnoses Not on filedocumented in this encounter Care Teams Film Drying Machine Operator Relationship Specialty Start Date End Date Alban Abrams MD [address] [place] [address] [place] [address] PCP - General Internal Medicine 02/17/17 Self-Referred, Patient Referring Physician 02/17/17 Jair Gonzalez MD, PhD [address] [place] [phone] [email or web address] Primary Oncologist Oncology 02/17/17 Jair Gonzalez MD, PhD [address] [place] [phone] [email or web address] Primary Oncologist Oncology 02/17/17 Raymon Norman MD [address] [place] [address] [email or web address] u Primary Oncologist Surgical Oncology 03/17/17 Shiloh Beck MD [address] [place] [phone] [email or web address] Hematology and Oncology 12/30/17 documented as of this encounter Additional Source Comments The information contained in this document represents components of the legal health record. It is not the complete legal health record.[facility]
--- OUTSIDE RECORDS SUMMARY | 2025-01-28 18:59 | XMS_ITS | Encounter Summary ---
Author Organization [facility] Address [address] [facility] [address] [place] [address] Phone Care Team Providers Care Finisher Fib[employer]lass Boat Parts Name Role Phone Alban Abrams MD Primary Care Provider [phone] Self-Referred, Patient Unavailable Unavailab Jair Rodriguez MD, PhD Unavailable [phone] Jair Gonzalez MD, PhD Unavailable [phone] Raymon Norman MD Unavailable [phone] Shiloh Beck MD Unavailable [phone] Encounter Details Date Type Department Care Team (Late Contact Info) Description 06/07/2018 Procedure Pass [facility] Endoscopy Department [address] [place] [address] Social History Tobacco Use Types Packs/Day Years [...] Info) Description 10/12/2024 Procedure Pass [facility] Imaging Department, [facility], [place] [address] [facility], Floor [address]1 [place] [address] 10/12/2024 Procedure Pass [facility] Imaging Department, [facility], [place] [address] [facility], Floor L1 [place] [address] 03/08/2025 8:50 AM EST Blood Draw Laboratory Services, [facility] [place] 300 [facility] 3rd [place] [address] Jair Gonzalez MD, PhD [address] [place] [phone] Samm@d [email or web address] 03/08/2025 10:40 AM EST Appointment [facility] Imaging Department, [facility], [place] [address] [facility], Floor L1 [place] [address] Jair Gonzalez MD, PhD [address] [place] [phone] [email or web address] [email or web address] 03/08/2025 2:00 PM EST Office Visit [facility], [address], 10th [place] [address] Jair Gonzalez MD, PhD [address] [place] [phone] [email or web address] [email or web address] documented as of this encounter Visit Diagnoses Not on filedocumented in this encounter Care Teams Finisher [employer] Relationship Specialty Start Date End Date Alban Abrams MD [address] [place] [address] [place] [address] PCP - General Internal Medicine 02/17/17 Self-Referred, Patient Referring Physician 02/17/17 Jair Gonzalez MD, PhD 450 [place] [address] [email or web address] Primary Oncologist Oncology 02/17/17 Jair Gonzalez MD, PhD [address] [place] [phone] Samm@[email or web address] Primary Oncologist Oncology 02/17/17 Raymon Norman MD [address] [place] [address] [email or web address] u Primary Oncologist Surgical Oncology 03/17/17 Shiloh Beck MD [address] [place] [phone] [email or web address] Hematology and Oncology 12/30/17 documented as of this encounter Additional Source Comments The information contained in this document represents components of the legal health record. It is not the complete legal health record.[facility]
--- OUTSIDE RECORDS SUMMARY | 2025-01-28 18:59 | XMS_ITS | Encounter Summary ---
Author Organization [facility] Address [address] [place] [address] Phone Care Team Providers Care Nuclear Fuel Enrichment Technician Name Role Phone Alban Abrams MD Primary Care Provider [phone] Self-Referred, Patient Unavailable Unavailab Jair Rodriguez MD, PhD Unavailable [phone] Jair Gonzalez MD, PhD Unavailable [phone] Raymon Norman MD Unavailable [phone] Shiloh Beck MD Unavailable [phone] Encounter Details Date Type Department Care Team (Late st Contact Info) Description 12/30/2023 Procedure Pass [facility], [facility] [place] [place] [address] [facility], Floor [address]1 [place] [address] Social History Tobacco Use Types Packs/Day Years [...] Procedure Pass [facility] Imaging Department, [facility] [place] [address] [facility], Floor [address]1 [place] [address] 10/12/2024 Procedure Pass [facility] Imaging Department, [facility], [place] [address] [facility], Floor [address] [place] [address] 03/08/2025 8:50 AM EST Blood Draw Laboratory Services, [facility] [place] [facility] [place] [address] [facility] 3rd [place] [address] Jair Gonzalez MD, PhD [address] [place] [address] Samm@d [email or web address] 03/08/2025 10:40 AM EST Appointment [facility], [facility], [place] [address] [facility], Floor [address]1 [place] [address] Jair Gonzalez MD, PhD [address] [place] [address] Samm@[email or web address] 03/08/2025 2:00 PM EST Office Visit [facility], [address], 10th [place] [address] Jair Gonzalez MD, PhD [address] [place] [phone] Samm@d [email or web address] documented as of this encounter Visit Diagnoses Not on filedocumented in this encounter Care Teams Nuclear Fuel Enrichment Technician Relationship Specialty Start Date End Date Alban Abrams MD [address] [place] [address] [place] [address] PCP - General Internal Medicine 02/17/17 Self-Referred, Patient Referring Physician 02/17/17 Jair Gonzalez MD, PhD [address] [place] [phone] [email or web address] Primary Oncologist Oncology 02/17/17 Jair Gonzalez MD, PhD [address] [place] [address] [email or web address] Primary Oncologist Oncology 02/17/17 Raymon Norman MD [address] [place] [address] [email or web address] Primary Oncologist Surgical Oncology 03/17/17 Shiloh Beck MD [address] [place] [address] [email or web address] Hematology and Oncology 12/30/17 documented as of this encounter Additional Source Comments The information contained in this document represents components of the legal health record. It is not the complete legal health record.[facility]
--- OUTSIDE RECORDS SUMMARY | 2025-01-28 18:59 | XMS_ITS | Encounter Summary ---
Author Organization [facility] Address [address] [place] [address] Phone Care Team Providers Care Web Press Operator Helper Offset Name Role Phone Alban Abrams MD Primary Care Provider [phone] Self-Referred, Patient Unavailable Unavailab Jair Rodriguez MD, PhD Unavailable [phone] Jair Gonzalez MD, PhD Unavailable [phone] Raymon Norman MD Unavailable [phone] Shiloh Beck MD Unavailable [phone] Encounter Details Date Type Department Care Team (Late st Contact Info) Description 07/15/2023 Procedure Pass [facility] Imaging [facility], [facility] [place] [address] [facility], Floor L1 [place] [address] Social History Tobacco Use Types Packs/Day Years [...] [facility], [facility], [place] [address] [facility], Floor L1 [place] [address] 10/12/2024 Procedure Pass [facility] Imaging Department, [facility], [place] [address] [facility], Floor [address]1 [place] [address] 03/08/2025 8:50 AM EST Blood Draw Laboratory Services, [facility] [place] [address] [facility] 3rd [place] [address] Jair Gonzalez MD, PhD [address] [place] [phone] [email or web address] 03/08/2025 10:40 AM EST Appointment [facility] Imaging Department, [facility], [place] [address] [facility], Floor L1 [place] [address] Jair Gonzalez MD, PhD [address] [place] [phone] [email or web address] 03/08/2025 2:00 PM EST Office Visit [facility], [address], 10th [place] [address] Jair Gonzalez MD, PhD [address] [place] [address] Samm@d [email or web address] documented as of this encounter Visit Diagnoses Not on filedocumented in this encounter Care Teams Web Press Operator Helper Offset Relationship Specialty Start Date End Date Alban Abrams MD [address] [place] [address] [address] PCP - General Internal Medicine 02/17/17 Self-Referred, Patient Referring Physician 02/17/17 Jair Gonzalez MD, PhD [address] [place] [phone] Samm@[email or web address] Primary Oncologist Oncology 02/17/17 Jair Gonzalez MD, PhD [address] [place] [address] Samm@[facility] Primary Oncologist Oncology 02/17/17 Raymon Norman MD [address] [place] [address] [email or web address] Primary Oncologist Surgical Oncology 03/17/17 Shiloh Beck MD [address] [place] [address] [email or web address] Hematology and Oncology 12/30/17 documented as of this encounter Additional Source Comments The information contained in this document represents components of the legal health record. It is not the complete legal health record.[facility]
--- OUTSIDE RECORDS SUMMARY | 2025-01-28 19:00 | XMS_ITS | Encounter Summary ---
Author Organization [facility] Address [address] [facility] [address] [place] [address] Phone Care Team Providers Care Soft Work Wrapper Examiner Name Role Phone Alban Abrams MD Primary Care Provider [phone] Self-Referred, Patient Unavailable Unavailab Jair Rodriguez MD, PhD Unavailable [phone] Jair Gonzalez MD, PhD Unavailable [phone] Raymon Norman MD Unavailable Shiloh Beck MD Unavailable [phone] Encounter Details Date Type Department Care Team (Late st Contact Info) Description 10/10/2020 Procedure Pass [facility] Imaging [facility], [facility] [place] [address] [facility], Floor L1 [place] [address] Social History Tobacco Use Types Packs/Day Years [...] Contact Info) Description 10/12/2024 Procedure Pass [facility] Imaging Department, [facility] [place] [address] [facility], Floor L1 [place] [address] 10/12/2024 Procedure Pass [facility] Imaging Department, [facility] [place] [address] [facility], Floor [address]1 [place] [address] 03/08/2025 8:50 AM EST Blood Draw Laboratory Services, [facility] [place] 300 [facility] 3rd [place] [address] Jair Gonzalez MD, PhD [address] [place] [phone] Samm@d [email or web address] 03/08/2025 10:40 AM EST Appointment [facility] Imaging Department, [facility], [place] [address] [facility], Floor [address]1 [place] [address] Jair Gonzalez MD, PhD [address] [place] [phone] Samm@d [email or web address] 03/08/2025 2:00 PM EST Office Visit [facility], [address], 10th [place] [address] Jair Gonzalez MD, PhD [address] [place] [phone] Samm@d [facility] documented as of this encounter Visit Diagnoses Not on filedocumented in this encounter Care Teams Soft Work Wrapper Examiner Relationship Specialty Start Date End Date Alban Abrams MD [address] [place] [address] [place] [address] PCP - General Internal Medicine 02/17/17 Self-Referred, Patient Referring Physician 02/17/17 Jair Gonzalez MD, PhD [address] [place] [phone] [email or web address] Primary Oncologist Oncology 02/17/17 Jair Gonzalez MD, PhD [address] [place] [address] Samm@[email or web address] Primary Oncologist Oncology 02/17/17 Rayomn Norman MD [address] [place] [address] [email or web address] Primary Oncologist Surgical Oncology 03/17/17 Shiloh Beck MD [address] [place] [address] [email or web address] Hematology and Oncology 12/30/17 documented as of this encounter Additional Source Comments The information contained in this document represents components of the legal health record. It is not the complete legal health record.[facility]
--- OUTSIDE RECORDS SUMMARY | 2025-01-28 19:00 | XMS_ITS | Encounter Summary ---
Author Organization [facility] Address [address] [place] [address] Phone Care Team Providers Care Computer Forensics Investigator Name Role Phone Alban Abrams MD Primary Care Provider [phone] Self-Referred, Patient Unavailable Unavailab Jair Rodriguez MD, PhD Unavailable [phone] Jair Gonzalez MD, PhD Unavailable [phone] Raymon Norman MD Unavailable [phone] Shiloh Beck MD Unavailable [phone] Encounter Details Date Type Department Care Team (Late st Contact Info) Description 11/13/2022 Procedure Pass [facility] Imaging [facility], [facility] [place] [address] [facility], Floor [address]1 [place] [address] Social History Tobacco Use Types Packs/Day Years [...] Pass [facility] Imaging Department, [facility] [place] [address] [facility], Floor [address]1 [place] [address] 10/12/2024 Procedure Pass [facility] Imaging Department, [facility] [place] [address] [facility], Floor [address]1 [place] [address] 03/08/2025 8:50 AM EST Blood Draw Laboratory Services, [facility] [place] [address] [facility] 3rd [place] [address] Jair Gonzalez MD, PhD [address] [place] [phone] [email or web address] 03/08/2025 10:40 AM EST Appointment [facility] Imaging Department, [facility] [place] [address] [facility], Floor [address]1 [place] [address] Jair Gonzalez MD, PhD [address] [place] [phone] Samm@[email or web address] 03/08/2025 2:00 PM EST Office Visit [facility], [address], 10th [place] [address] Jair Gonzalez MD, PhD [address] [place] [phone] Samm@d [email or web address] documented as of this encounter Visit Diagnoses Not on filedocumented in this encounter Care Teams Computer Forensics Investigator Relationship Specialty Start Date End Date Alban Abrams MD [address] [place] [address] [address] PCP - General Internal Medicine 02/17/17 Self-Referred, Patient Referring Physician 02/17/17 Jair Gonzalez MD, PhD [address] [place] [address] [email or web address] Primary Oncologist Oncology 02/17/17 Jair Gonzalez MD, PhD [address] [place] [phone] [email or web address] Primary Oncologist Oncology 02/17/17 Raymon Norman MD [address] [place] [address] [email or web address] Primary Oncologist Surgical Oncology 03/17/17 Shiloh Beck MD [address] [place] [address] [email or web address] Hematology and Oncology 12/30/17 documented as of this encounter Additional Source Comments The information contained in this document represents components of the legal health record. It is not the complete legal health record.[facility]
--- OUTSIDE RECORDS SUMMARY | 2025-01-28 19:00 | XMS_ITS | Encounter Summary ---
Author Organization [facility] Address [address] [facility] [place] [address] Phone Care Team Providers Care Binder Fixer Name Role Phone Alban Abrams MD Primary Care Provider [phone] Self-Referred, Patient Unavailable Unavailab Jair Rodriguez MD, PhD Unavailable [phone] Jair Gonzalez MD, PhD Unavailable [phone] Raymon Norman MD Unavailable [phone] Shiloh Beck MD Unavailable [phone] Encounter Details Date Type Department Care Team (Late Contact Info) Description 02/07/2021 Procedure Pass [facility] 75 [place] [address] Social History Tobacco Use Types Packs/Day Years [...] (Late Contact Info) Description 10/12/2024 Procedure Pass [facility] Imaging Department, [facility] [place] [facility], Floor L1 [place] [address] 10/12/2024 Procedure Pass [facility] Imaging Department, [facility] [place] [facility], Floor L1 [place] [address] 03/08/2025 8:50 AM EST Blood Draw Laboratory Services, [facility] [place] 300 [facility] 3rd [place] [address] Jair Gonzalez MD, PhD [address] [place] [phone] Samm@d [facility] 03/08/2025 10:40 AM EST Appointment [facility] Imaging Department, [facility] [place] [facility], Floor L1 [place] [address] Jair Gonzalez MD, PhD [address] [place] [phone] Samm@d [email or web address] 03/08/2025 2:00 PM EST Office Visit [facility], [address], 10th [place] [address] Jair Gonzalez MD, PhD [address] [place] [phone] Samm@d [email or web address] documented as of this encounter Visit Diagnoses Not on filedocumented in this encounter Care Teams Binder Fixer Relationship Specialty Start Date End Date Alban Abrams MD [address] [place] [address] [place] [address] PCP - General Internal Medicine 02/17/17 Self-Referred, Patient Referring Physician 02/17/17 Jair Gonzalez MD, PhD [address] [place] [phone] [email or web address] Primary Oncologist Oncology 02/17/17 Jair Gonzalez MD, PhD [address] [place] [phone] Samm@[email or web address] Primary Oncologist Oncology 02/17/17 Raymon Norman MD [address] [place] [address] [email or web address]. u Primary Oncologist Surgical Oncology 03/17/17 Shiloh Beck MD [address] [place] [address] [email or web address] Hematology and Oncology 12/30/17 documented as of this encounter Additional Source Comments The information contained in this document represents components of the legal health record. It is not the complete legal health record.[facility]
--- OUTSIDE RECORDS SUMMARY | 2025-01-28 19:00 | XMS_ITS | Encounter Summary ---
Author Organization [facility] Address [address] [place] [address] Phone Care Team Providers Care Ceramic Products Sales Engineer Name Role Phone Alban Abrams MD Primary Care Provider [phone] Self-Referred, Patient Unavailable Unavailab Jair Rodriguez MD, PhD Unavailable [phone] Jair Gonzalez MD, PhD Unavailable [phone] Raymon Norman MD Unavailable [phone] Shiloh Beck MD Unavailable [phone] Encounter Details Date Type Department Care Team (Late st Contact Info) Description 07/15/2023 Procedure Pass [facility] Imaging Department, [facility] [place], [place] [address] [facility], Floor L1 [place] [address] Social History Tobacco Use Types Packs/Day Years [...] 10/12/2024 Procedure Pass [facility] Imaging Department, [facility] [place] [address] [facility], Floor [address]1 [place] [address] 10/12/2024 Procedure Pass [facility] Imaging Department, [facility], [place] [address] [facility], Floor [address]1 [place] [address] 03/08/2025 8:50 AM EST Blood Draw Laboratory Services, [facility] [place] 300 [facility] 3rd [place] [address] Jair Gonzalez MD, PhD [address] [place] [phone] [email or web address] 03/08/2025 10:40 AM EST Appointment [facility] Imaging Department, [facility], [place] [address] [facility], Floor [address]1 [place] [address] Jair Gonzalez MD, PhD [address] [place] [phone] Samm@[email or web address] 03/08/2025 2:00 PM EST Office Visit [facility], [address], 10th [place] [address] Jair Gonzalez MD, PhD [address] [place] [phone] Samm@d [email or web address] documented as of this encounter Visit Diagnoses Not on filedocumented in this encounter Care Teams Ceramic Products Sales Engineer Relationship Specialty Start Date End Date Alban Abrams MD [address] [place] [address] [address] PCP - General Internal Medicine 02/17/17 Self-Referred, Patient Referring Physician 02/17/17 Jair Gonzalez MD, PhD [address] [place] [phone] Samm@[email or web address] Primary Oncologist Oncology 02/17/17 Jair Gonzalez MD, PhD [address] [place] [phone] Samm@[email or web address] Primary Oncologist Oncology 02/17/17 Raymon Norman MD [address] [place] [address] [email or web address] Primary Oncologist Surgical Oncology 03/17/17 Shiloh Beck MD [address] [place] [address] [email or web address] Hematology and Oncology 12/30/17 documented as of this encounter Additional Source Comments The information contained in this document represents components of the legal health record. It is not the complete legal health record.[facility]
--- OUTSIDE RECORDS SUMMARY | 2025-01-28 19:00 | XMS_ITS | Encounter Summary ---
Author Organization [facility] Address [address] [address] [facility] [address] [place] [address] Phone Care Team Providers Care Site Damage Prevention Technician Name Role Phone Alban Abrams MD Primary Care Provider [phone] Self-Referred, Patient Unavailable Unavailab Jair Rodriguez MD, PhD Unavailable [phone] Jair Gonzalez MD, PhD Unavailable [phone] Raymon Norman MD Unavailable [phone] Shiloh Beck MD Unavailable [phone] Encounter Details Date Type Department Care Team (Late st Contact Info) Description 10/10/2020 Procedure Pass [facility] Imaging Department, [facility] [place] [address] [facility], Floor [address]1 [place] [address] Social History Tobacco Use Types Packs/Day Years [...] Procedure Pass [facility] Imaging Department, [facility] [place] [address] [facility], Floor [address]1 [place] [address] 10/12/2024 Procedure Pass [facility] Imaging Department, [facility], [place] [address] [facility], Floor [address]1 [place] [address] 03/08/2025 8:50 AM EST Blood Draw Laboratory Services, [facility] [place] [address] [facility] [address] 3rd [place] [address] Jair Gonzalez MD, PhD [address] [place] [phone] [email or web address] 03/08/2025 10:40 AM EST Appointment [facility] Imaging Department, [facility], [place] [address] [facility], Floor [address] [place] [address] Jair Gonzalez MD, PhD [address] [place] [phone] Samm@[email or web address] 03/08/2025 2:00 PM EST Office Visit [facility], [address], 10th [place] [address] Jair Gonzalez MD, PhD [address] [place] [phone] [email or web address] documented as of this encounter Visit Diagnoses Not on filedocumented in this encounter Care Teams Site Damage Prevention Technician Relationship Specialty Start Date End Date Alban Abrams MD [address] [place] [address] [place] [address] PCP - General Internal Medicine 02/17/17 Self-Referred, Patient Referring Physician 02/17/17 Jair Gonzalez MD, PhD [address] [place] [phone] [email or web address] Primary Oncologist Oncology 02/17/17 Jair Gonzalez MD, PhD [address] [place] [phone] Samm@[email or web address] Primary Oncologist Oncology 02/17/17 Raymon Norman MD [address] [place] [address] [email or web address] Primary Oncologist Surgical Oncology 03/17/17 Shiloh Beck MD [address] [place] [address] [email or web address] Hematology and Oncology 12/30/17 documented as of this encounter Additional Source Comments The information contained in this document represents components of the legal health record. It is not the complete legal health record.[facility]
--- OUTSIDE RECORDS SUMMARY | 2025-01-28 19:00 | XMS_ITS | Encounter Summary ---
Author Organization [facility] Address [address] [facility] [address] [place] [address] Phone Care Team Providers Care Catalytic Converter Operator Name Role Phone Alban Abrams MD Primary Care Provider [phone] Self-Referred, Patient Unavailable Unavailab Jair Rodriguez MD, PhD Unavailable [phone] Jair Gonzalez MD, PhD Unavailable [phone] Raymon Norman MD Unavailable Shiloh eBck MD Unavailable [phone] Encounter Details Date Type Department Care Team (Late Contact Info) Description 04/16/2017 Procedure Pass [facility] Periop 75 [place] [address] Social History Tobacco Use Types Packs/Day Years [...] Contact Info) Description 10/12/2024 Procedure Pass [facility] Imaging Department, [facility], [place] 450 [facility], Floor L1 [place] [address] 10/12/2024 Procedure Pass [facility] Imaging Department, [facility] [place] [address] [facility], Floor L1 [place] [address] 03/08/2025 8:50 AM EST Blood Draw Laboratory Services, [facility] [place] 300 [facility] 3rd [place] [address] Jair Gonzalez MD, PhD [address] [place] [address] [email or web address] [email or web address] 03/08/2025 10:40 AM EST Appointment [facility] Imaging Department, [facility] [place] [address] [facility], Floor L1 [place] [address] Jair Gonzalez MD, PhD [address] [place] [address] [email or web address] 03/08/2025 2:00 PM EST Office Visit [facility], [address], 10th [place] [address] Jair Gonzalez MD, PhD [address] [place] [phone] [email or web address] documented as of this encounter Visit Diagnoses Not on filedocumented in this encounter Care Teams Catalytic Converter Operator Relationship Specialty Start Date End Date Alban Abrams MD [address] [place] [address] [place] [address] PCP - General Internal Medicine 02/17/17 Self-Referred, Patient Referring Physician 02/17/17 Jair Gonzalez MD, PhD [address] [place] [address] [email or web address] Primary Oncologist Oncology 02/17/17 Jair Gonzalez MD, PhD [address] [place] [address] [email or web address] Primary Oncologist Oncology 02/17/17 Raymon Norman MD [address] [place] [address] [email or web address] u Primary Oncologist Surgical Oncology 03/17/17 Shiloh Beck MD [address] [place] [address] [email or web address] Hematology and Oncology 12/30/17 documented as of this encounter Additional Source Comments The information contained in this document represents components of the legal health record. It is not the complete legal health record.[facility]
--- OUTSIDE RECORDS SUMMARY | 2025-01-28 19:00 | XMS_ITS | Encounter Summary ---
Author Organization [facility] Address [address] [place] [address] Phone Care Team Providers Care Underground Electrician Name Role Phone Alban Abrams MD Primary Care Provider [phone] Self-Referred, Patient Unavailable Unavailab Jair Rodriguez MD, PhD Unavailable [phone] Jair Gonzalez MD, PhD Unavailable [phone] Raymon Norman MD Unavailable [phone] Shiloh Beck MD Unavailable [phone] Encounter Details Date Type Department Care Team (Late st Contact Info) Description 03/18/2023 Procedure Pass [facility] [place] [address] [place] [address] Social History Tobacco Use Types Packs/Day Years [...] Pass [facility] Imaging Department, [facility] [place] [address] [facility], Floor L1 [place] [address] 10/12/2024 Procedure Pass [facility] Imaging Department, [facility], [place] [address] [facility], Floor [address]1 [place] [address] 03/08/2025 8:50 AM EST Blood Draw Laboratory Services, [facility] [place] 300 [facility] 3rd [place] [address] Jair Gonzalez MD, PhD [address] [place] [address] [email or web address] 03/08/2025 10:40 AM EST Appointment [facility] Imaging Department, [facility] [place] 450 [facility], Floor [address]1 [place] [address] Jair Gonzalez MD, PhD [address] [place] [address] Samm@d [email or web address] 03/08/2025 2:00 PM EST Office Visit [facility], [address], 10th [place] [address] Jair Gonzalez MD, PhD [address] [place] [address] [email or web address] documented as of this encounter Visit Diagnoses Not on filedocumented in this encounter Care Teams Underground Electrician Relationship Specialty Start Date End Date Alban Abrams MD [address] [place] [address] [address] PCP - General Internal Medicine 02/17/17 Self-Referred, Patient Referring Physician 02/17/17 Jair Gonzalez MD, PhD [address] [place] [address] [email or web address] Primary Oncologist Oncology 02/17/17 Jair Gonzalez MD, PhD [address] [place] [address] [email or web address] Primary Oncologist Oncology 02/17/17 Raymon Norman MD [address] [place] [address] [email or web address] Primary Oncologist Surgical Oncology 03/17/17 Shiloh Beck MD [address] [place] [address] [email or web address] [employer] Hematology and Oncology 12/30/17 documented as of this encounter Additional Source Comments The information contained in this document represents components of the legal health record. It is not the complete legal health record.[facility]
--- OUTSIDE RECORDS SUMMARY | 2025-01-28 19:00 | XMS_ITS | Encounter Summary ---
Author Organization [facility] Address [address] [facility] [address] [place] [address] Phone Care Team Providers Care Sales Operations Associate Name Role Phone Alban Abrams MD Primary Care Provider [phone] Self-Referred, Patient Unavailable Unavailab Jair Rodriguez MD, PhD Unavailable [phone] Jair Gonzalez MD, PhD Unavailable [phone] Raymon Norman MD Unavailable [phone] Shiloh Beck MD Unavailable [phone] Encounter Details Date Type Department Care Team (Late st Contact Info) Description 06/12/2021 Procedure Pass [facility] [place] [facility] [place] 300 [facility] 3rd [place] [address] Social History Tobacco Use Types Packs/Day Years [...] Pass [facility] Imaging Department, [facility], [place] 450 [facility], Floor L1 [place] [address] 10/12/2024 Procedure Pass [facility] Imaging Department, [facility] [place] [address] [facility], Floor L1 [place] [address] 03/08/2025 8:50 AM EST Blood Draw Laboratory Services, [facility] [place] 300 [facility] 3rd [place] [address] Jair Gonzalez MD, PhD [address] [place] [address] [email or web address] 03/08/2025 10:40 AM EST Appointment [facility] Imaging Department, [facility] 450 [facility], Floor L1 [place] [address] Jair Gonzalez MD, PhD [address] [place] [address] [email or web address] [email or web address] 03/08/2025 2:00 PM EST Office Visit [facility], [address], 10th [place] [address] Jair Gonzalez MD, PhD [address] [place] [address] [email or web address] documented as of this encounter Visit Diagnoses Not on filedocumented in this encounter Care Teams Sales Operations Associate Relationship Specialty Start Date End Date Alban Abrams MD [address] [place] [address] [place] [address] PCP - General Internal Medicine 02/17/17 Self-Referred, Patient Referring Physician 02/17/17 Jair Gonzalez MD, PhD [address] [place] [phone] [email or web address] Primary Oncologist Oncology 02/17/17 Jair Gonzalez MD, PhD [address] [place] [address] [email or web address] Primary Oncologist Oncology 02/17/17 Raymon Norman MD [address] [place] [address] [email or web address] Primary Oncologist Surgical Oncology 03/17/17 Shiloh Beck MD 5 [place] [address] [email or web address] Hematology and Oncology 12/30/17 documented as of this encounter Additional Source Comments The information contained in this document represents components of the legal health record. It is not the complete legal health record.[facility]
--- OUTSIDE RECORDS SUMMARY | 2025-01-28 19:00 | XMS_ITS | Encounter Summary ---
Author Organization [facility] Address [address] [employer] [facility] [address] [place] [address] Phone Care Team Providers Care Science Consultant Name Role Phone Alban Abrams MD Primary Care Provider [phone] Self-Referred, Patient Unavailable Unavailab Jair Rodriguez MD, PhD Unavailable [phone] Jair Gonzalez MD, PhD Unavailable [phone] Raymon Norman MD Unavailable [phone] Shiloh Beck MD Unavailable [phone] Encounter Details Date Type Department Care Team (Late st Contact Info) Description 01/16/2021 Procedure Pass [facility], [facility] [place] [address] [facility], Floor L1 [place] [address] Social History Tobacco Use Types Packs/Day Years [...] Procedure Pass [facility] Imaging Department, [facility] [place] [address] [facility], Floor L1 [place] [address] 10/12/2024 Procedure Pass [facility] Imaging Department, [facility] [place] [address] [facility], Floor L1 [place] [address] 03/08/2025 8:50 AM EST Blood Draw Laboratory Services, [facility] [place] 300 [facility] 3rd [place] [address] Jair Gonzalez MD, PhD [address] [place] [phone] [email or web address] [email or web address] 03/08/2025 10:40 AM EST Appointment [facility] Imaging Department, [facility] [address] [facility], Floor L1 [place] [address] Jair Gonzalez MD, PhD [address] [place] [phone] Samm@d [email or web address] 03/08/2025 2:00 PM EST Office Visit [facility], [address], 10th [place] [address] Jair Gonzalez MD, PhD [address] [place] [phone] Samm@d [email or web address] documented as of this encounter Visit Diagnoses Not on filedocumented in this encounter Care Teams Science Consultant Relationship Specialty Start Date End Date Alban Abrams MD [address] [place] [address] [place] [address] PCP - General Internal Medicine 02/17/17 Self-Referred, Patient Referring Physician 02/17/17 Jair Gonzalez MD, PhD [address] [place] [phone] [email or web address] Primary Oncologist Oncology 02/17/17 Jair Gonzalez MD, PhD [address] [place] [address] [email or web address] Primary Oncologist Oncology 02/17/17 Raymon Norman MD [address] [place] [address] [email or web address] Primary Oncologist Surgical Oncology 03/17/17 Shiloh Beck MD [address] [place] [phone] [email or web address] Hematology and Oncology 12/30/17 documented as of this encounter Additional Source Comments The information contained in this document represents components of the legal health record. It is not the complete legal health record.[facility]
--- OUTSIDE RECORDS SUMMARY | 2025-01-28 19:00 | XMS_ITS | Encounter Summary ---
Author Organization [facility] Address [address] [facility] [address] [place] [address] Phone Care Team Providers Care Gum Scoring Machine Operator Name Role Phone Alban Abrams MD Primary Care Provider [phone] Self-Referred, Patient Unavailable Unavailab Jair Rodriguez MD, PhD Unavailable [phone] Jair Gonzalez MD, PhD Unavailable [phone] Raymon Norman MD Unavailable [phone] Shiloh Beck MD Unavailable [phone] Encounter Details Date Type Department Care Team (Late Contact Info) Description 10/08/2017 Procedure Pass [facility] Imaging, [place] [address] [place] [address] Social History Tobacco Use Types Packs/Day Years [...] st Contact Info) Description 10/12/2024 [facility] [place] [address] [facility], Floor L1 [place] [address] 10/12/2024 [facility] [place] [address] [facility], Floor L1 [place] [address] 03/08/2025 8:50 AM EST Blood Draw Laboratory Services, [facility] [place] 300 [facility] 3rd [place] [address] Jair Gonzalez MD, PhD [address] [place] [phone] [email or web address] [email or web address] 03/08/2025 10:40 AM EST Appointment [facility] Imaging Department, [facility] [place] [address] [facility], Floor L1 [place] [address] Jair Gonzalez MD, PhD [address] [place] [address] Samm@d [email or web address] 03/08/2025 2:00 PM EST Office Visit [facility], [address], 10th [place] [address] Jair Gonzalez MD, PhD [address] [place] [phone] [email or web address] [email or web address] documented as of this encounter Visit Diagnoses Not on filedocumented in this encounter Care Teams Gum Scoring Machine Operator Relationship Specialty Start Date End Date Alban Abrams MD [address] [place] [address] [place] [address] PCP - General Internal Medicine 02/17/17 Self-Referred, Patient Referring Physician 02/17/17 Jair Gonzalez MD, PhD 450 [place] [address] [email or web address] Primary Oncologist Oncology 02/17/17 Jair Gonzalez MD, PhD [address] [place] [phone] [email or web address] Primary Oncologist Oncology 02/17/17 Raymon Norman MD [address] [place] [address] [email or web address] Primary Oncologist Surgical Oncology 03/17/17 Shiloh Beck MD [address] [place] [address] [email or web address] Hematology and Oncology 12/30/17 documented as of this encounter Additional Source Comments The information contained in this document represents components of the legal health record. It is not the complete legal health record.[facility]
--- OUTSIDE RECORDS SUMMARY | 2025-01-28 19:00 | XMS_ITS | Encounter Summary ---
Author Organization [facility] Address [address] [facility] [address] [place] [address] Phone Care Team Providers Care Launchman Name Role Phone Alban Abrams MD Primary Care Provider [phone] Self-Referred, Patient Unavailable Unavailab Jair Rodriguez MD, PhD Unavailable [phone] Jair Gonzalez MD, PhD Unavailable [phone] Raymon Norman MD Unavailable [phone] Shiloh Beck MD Unavailable [phone] Encounter Details Date Type Department Care Team (Late Contact Info) Description 03/13/2021 Procedure Pass [facility] Periop 75 [place] [address] Social History Tobacco Use Types Packs/Day Years [...] st Contact Info) Description 10/12/[facility]24 [facility] [place] [address] [facility], Floor L1 [place] [address] 10/12/2024 [facility], [facility] [place] [address] [facility], Floor L1 [place] [address] 03/08/2025 8:50 AM EST Blood Draw Laboratory Services, [facility] [place] 300 [facility] 3rd [place] [address] Jair Gonzalez MD, PhD [address] [place] [phone] [email or web address] 03/08/2025 10:40 AM EST Appointment [facility] Imaging Department, [facility] [place] [address] [facility], Floor L1 [place] [address] Jair Gonzalez MD, PhD [address] [place] [phone] [email or web address] [email or web address] 03/08/2025 2:00 PM EST Office Visit [facility], [address], 10th [place] [address] Jair Gonazlez MD, PhD [address] [place] [phone] Samm@d [email or web address] documented as of this encounter Visit Diagnoses Not on filedocumented in this encounter Care Teams Launchman Relationship Specialty Start Date End Date Alban Abrams MD [address] [place] [address] [place] [address] PCP - General Internal Medicine 02/17/17 Self-Referred, Patient Referring Physician 02/17/17 Jair Gonzalez MD, PhD [address] [place] [phone] [email or web address] Primary Oncologist Oncology 02/17/17 Jair Gonzalez MD, PhD [address] [place] [phone] [email or web address] Primary Oncologist Oncology 02/17/17 Raymon Norman MD [address] [place] [address] [email or web address] Primary Oncologist Surgical Oncology 03/17/17 Shiloh Beck MD [address] [place] [phone] [email or web address] Hematology and Oncology 12/30/17 documented as of this encounter Additional Source Comments The information contained in this document represents components of the legal health record. It is not the complete legal health record.[facility]
--- OUTSIDE RECORDS SUMMARY | 2025-01-28 19:00 | XMS_ITS | Encounter Summary ---
Author Organization [facility] Address [address] [facility] [address] [place] [address] Phone Care Team Providers Care Inbound Ingredient Logistics Specialist Name Role Phone Alban Abrams MD Primary Care Provider [phone] Self-Referred, Patient Unavailable Unavailab Jair Rodriguez MD, PhD Unavailable [phone] Jair Gonzalez MD, PhD Unavailable [phone] Raymon Norman MD Unavailable [phone] Shiloh Beck MD Unavailable [phone] Encounter Details Date Type Department Care Team (Late st Contact Info) Description 08/31/2023 Procedure Pass [facility] Periop [address] [place] [address] Social History Tobacco Use Types Packs/Day Years [...] 10/12/2024 Procedure Pass [facility] Imaging Department, [facility] [place] 450 [facility], Floor L1 [place] [address] 10/12/2024 Procedure Pass [facility] Imaging Department, [facility], [place] [address] [facility], Floor L1 [place] [address] 03/08/2025 8:50 AM EST Blood Draw Laboratory Services, [facility] [place] 300 [facility] 3rd [place] [address] Jair Gonzalez MD, PhD [address] [place] [phone] [email or web address] 03/08/2025 10:40 AM EST Appointment [facility] Imaging Department, [facility] [place] 450 [facility], Floor L1 [place] [address] Jair Gonzalez MD, PhD [address] [place] [phone] [email or web address] 03/08/2025 2:00 PM EST Office Visit [facility], [address], 10th [place] [address] Jair Gonzalez MD, PhD [address] [place] [phone] [email or web address] documented as of this encounter Visit Diagnoses Not on filedocumented in this encounter Care Teams Inbound Ingredient Logistics Specialist Relationship Specialty Start Date End Date Alban Abrams MD [address] [place] [address] [address] PCP - General Internal Medicine 02/17/17 Self-Referred, Patient Referring Physician 02/17/17 Jair Gonzalez MD, PhD [address] [place] [phone] [email or web address] Primary Oncologist Oncology 02/17/17 Jair Gonzalez MD, PhD [address] [place] [phone] [email or web address] Primary Oncologist Oncology 02/17/17 Raymon Norman MD [address] [place] [address] [email or web address] Primary Oncologist Surgical Oncology 03/17/17 Shiloh Beck MD [address] [place] [address] [email or web address] Hematology and Oncology 12/30/17 documented as of this encounter Additional Source Comments The information contained in this document represents components of the legal health record. It is not the complete legal health record.[facility]
--- OUTSIDE RECORDS SUMMARY | 2025-01-28 19:00 | XMS_ITS | Encounter Summary ---
Author Organization [facility] Address [address] [facility] [address] [place] [address] Phone Care Team Providers Care Sales Project Manager Name Role Phone Alban Abrams MD Primary Care Provider [phone] Self-Referred, Patient Unavailable Unavailab Jair Rodriguez MD, PhD Unavailable [phone] Jair Gonzalez MD, PhD Unavailable [phone] Raymon Norman MD Unavailable [phone] Shiloh Beck MD Unavailable [phone] Encounter Details Date Type Department Care Team (Late Contact Info) Description 05/25/2017 Procedure Pass [facility] Imaging, [place] [address] [place] [address] Social History Tobacco Use Types Packs/Day Years [...] st Contact Info) Description 10/12/2024 [facility], [facility] [place] [address] [facility], Floor L1 [place] [address] 10/12/2024 [facility], [facility] [place] [address] [facility], Floor L1 [place] [address] 03/08/2025 8:50 AM EST Blood Draw Laboratory Services, [facility] [place] 300 [facility] 3rd [place] [address] Jair Gonzalez MD, PhD [address] [place] [phone] [email or web address] 03/08/2025 10:40 AM EST Appointment [facility] Imaging Department, [facility] [place] [address] [facility], Floor L1 [place] [address] Jair Gonzalez MD, PhD [address] [place] [phone] [email or web address] 03/08/2025 2:00 PM EST Office [facility], [address], 10th [place] [address] Jair Gonzalez MD, PhD [address] [place] [phone] [email or web address] [email or web address] documented as of this encounter Visit Diagnoses Not on filedocumented in this encounter Care Teams Sales Project Manager Relationship Specialty Start Date End Date Alban Abrams MD [address] [place] [address] [place] [address] PCP - General Internal Medicine 02/17/17 Self-Referred, Patient Referring Physician 02/17/17 Jair Gonzalez MD, PhD [address] [place] [address] [email or web address] Primary Oncologist Oncology 02/17/17 Jair Gonzalez MD, PhD [address] [place] [address] [email or web address] Primary Oncologist Oncology 02/17/17 Raymon Norman MD [address] [place] [address] [email or web address] Primary Oncologist Surgical Oncology 03/17/17 Shiloh Beck MD [address] [place] [phone] [email or web address] Hematology and Oncology 12/30/17 documented as of this encounter Additional Source Comments The information contained in this document represents components of the legal health record. It is not the complete legal health record.[facility]
--- OUTSIDE RECORDS SUMMARY | 2025-01-28 19:00 | XMS_ITS | Encounter Summary ---
Author Organization [facility] Address [address] [facility] [address] [place] [address] Phone Care Team Providers Care Track Subway Repair Supervisor Name Role Phone Alban Abrams MD Primary Care Provider [phone] Self-Referred, Patient Unavailable Unavailab Jair Rodriguez MD, PhD Unavailable [phone] Jair Gonzalez MD, PhD Unavailable [phone] Raymon Norman MD Unavailable Shiloh Beck MD Unavailable [phone] Encounter Details Date Type Department Care Team (Late st Contact Info) Description 04/15/2017 Transcribe Orders [facility] Echocardiography [address] [place] [address] Riki Lopez MD 45 [facility] 3rd [place] [address] [email or web address] Social History Tobacco Use Types Packs/Day Years [...] Pass [facility] Imaging Department, [facility] [place] [address] [facility], Floor L1 [place] [address] 10/12/2024 Procedure Pass [facility] Imaging Department, [facility] [place] [address] [facility], Floor L1 [place] [address] 03/08/2025 8:50 AM EST Blood Draw Laboratory Services, [facility] [place] 300 [facility] 3rd [place] [address] Jair Gonzalez MD, PhD [address] [place] [address] [email or web address] 03/08/2025 10:40 AM EST Appointment [facility] Imaging Department, [facility] [place] [address] [facility], Floor L1 [place] [address] Jair Gonzalez MD, PhD [address] [place] [phone] [email or web address] [email or web address] 03/08/2025 2:00 PM EST Office Visit [facility], [address], 10th [place] [address] Jair Gonzalez MD, PhD [address] [place] [phone] [email or web address] [email or web address] documented as of this encounter Visit Diagnoses Not on filedocumented in this encounter Care Teams Track Subway Repair Supervisor Relationship Specialty Start Date End Date Alban Abrams MD [address] [place] [address] [place] [address] PCP - General Internal Medicine 02/17/17 Self-Referred, Patient Referring Physician 02/17/17 Jair Gonzalez MD, PhD [address] [place] [address] [email or web address] Primary Oncologist Oncology 02/17/17 Jair Gonzalez MD, PhD [address] [place] [phone] [email or web address] Primary Oncologist Oncology 02/17/17 Raymon Norman MD [address] [place] [phone] [email or web address] Primary Oncologist Surgical Oncology 03/17/17 Shiloh Beck MD [address] [place] [phone] [email or web address] Hematology and Oncology 12/30/17 documented as of this encounter Additional Source Comments The information contained in this document represents components of the legal health record. It is not the complete legal health record.[facility]
--- OUTSIDE RECORDS SUMMARY | 2025-01-28 19:00 | XMS_ITS | Encounter Summary ---
Author Organization [facility] Address [address] [place] [address] Phone Care Team Providers Care Rig Hand Name Role Phone Alban Abrams MD Primary Care Provider [phone] Self-Referred, Patient Unavailable Unavailab Jair Rodriguez MD, PhD Unavailable [phone] Jair Gonzalez MD, PhD Unavailable [phone] Raymon Norman MD Unavailable [phone] Shiloh Beck MD Unavailable [phone] Encounter Details Date Type Department Care Team (Late st Contact Info) Description 11/13/2022 Procedure Pass [facility] Imaging [facility], [facility] [place] [place] [address] [facility], Floor L1 [place] [address] Social History Tobacco Use Types Packs/Day Years [...] st Contact Info) Description 10/12/2024 Procedure Pass [facility] Imaging Department, [facility] [place] [address] [facility], Floor L1 [place] [address] 10/12/2024 Procedure Pass [facility] Imaging Department, [facility] [place] [address] [facility], Floor [address]1 [place] [address] 03/08/2025 8:50 AM EST Blood Draw Laboratory Services, [facility] [place] 300 [facility] 3rd [place] [address] Jair Gonzalez MD, PhD [address] [place] [phone] [email or web address] 03/08/2025 10:40 AM EST Appointment [facility] Imaging Department, [facility] [place] [address] [facility], Floor L1 [place] [address] Jair Gonzalez MD, PhD [address] [place] [phone] [email or web address] 03/08/2025 2:00 PM EST Office Visit [facility], [address], 10th [place] [address] Jair Gonzalez MD, PhD [address] [place] [address] [email or web address] documented as of this encounter Visit Diagnoses Not on filedocumented in this encounter Care Teams Rig Hand Relationship Specialty Start Date End Date Alban Abrams MD [address] [place] [address] [address] PCP - General Internal Medicine 02/17/17 Self-Referred, Patient Referring Physician 02/17/17 Jair Gonzalez MD, PhD [address] [place] [address] [email or web address] Primary Oncologist Oncology 02/17/17 Jair Gonzalez MD, PhD [address] [place] [address] [email or web address] Primary Oncologist Oncology 02/17/17 Raymon Norman MD [address] [place] [address] [email or web address] Primary Oncologist Surgical Oncology 03/17/17 Shiloh Beck MD [address] [place] [phone] [email or web address] Hematology and Oncology 12/30/17 documented as of this encounter Additional Source Comments The information contained in this document represents components of the legal health record. It is not the complete legal health record.[facility]
--- OUTSIDE RECORDS SUMMARY | 2025-01-28 19:00 | XMS_ITS | Encounter Summary ---
Author Organization [facility] Address [address] [place] [address] Phone Care Team Providers Care Reinforcing Steel Machine Operator Name Role Phone Alban Abrams MD Primary Care Provider [phone] Self-Referred, Patient Unavailable Unavailab Jair Rodriguez MD, PhD Unavailable [phone] Jair Gonzalez MD, PhD Unavailable [phone] Raymon Norman MD Unavailable [phone] Shiloh Beck MD Unavailable [phone] Encounter Details Date Type Department Care Team (Late st Contact Info) Description 12/22/2022 Procedure Pass [facility] [address] [place] [address] Social History Tobacco Use Types Packs/Day Years [...] Info) Description 10/12/2024 Procedure Pass [facility] Imaging Department, [facility] [place] [address] [facility], Floor L1 [place] [address] 10/12/2024 Procedure Pass [facility] Imaging Department, [facility] [place] [facility], Floor L1 [place] [address] 03/08/2025 8:50 AM EST Blood Draw Laboratory Services, [facility] [place] 300 [facility] 3rd [place] [address] Jair Gonzalez MD, PhD [address] [place] [phone] [email or web address] 03/08/2025 10:40 AM EST Appointment [facility] Imaging Department, [facility] [place] [address] [facility], [facility] L1 [place] [address] Jair Gonzalez MD, PhD [address] [place] [phone] [email or web address] 03/08/2025 2:00 PM EST Office Visit [facility], [address], 10th [place] [address] Jair Gonzalez MD, PhD [address] [place] [phone] [email or web address] documented as of this encounter Visit Diagnoses Not on filedocumented in this encounter Care Teams Reinforcing Steel Machine Operator Relationship Specialty Start Date End Date Alban Abrams MD [address] [place] [address] [address] PCP - General Internal Medicine 02/17/17 Self-Referred, Patient Referring Physician 02/17/17 Jair Gonzalez MD, PhD [address] [place] [phone] [email or web address] Primary Oncologist Oncology 02/17/17 Jair Gonzalez MD, PhD [address] [place] [phone] [email or web address] Primary Oncologist Oncology 02/17/17 Raymon Norman MD [address] [place] [address] [email or web address] Primary Oncologist Surgical Oncology 03/17/17 Shiloh Beck MD [address] [place] [phone] [email or web address] Hematology and Oncology 12/30/17 documented as of this encounter Additional Source Comments The information contained in this document represents components of the legal health record. It is not the complete legal health record.[facility]
--- OUTSIDE RECORDS SUMMARY | 2025-01-28 19:00 | XMS_ITS | Encounter Summary ---
Author Organization [facility] Address [address] [facility] [address] [place] [address] Phone Care Team Providers Care Emergency Management Program Specialist Name Role Phone Alban Abrams MD Primary Care Provider [phone] Self-Referred, Patient Unavailable Unavailab Jair Rodriguez MD, PhD Unavailable [phone] Jair Gonzalez MD, PhD Unavailable [phone] Raymon Norman MD Unavailable Shiloh Beck MD Unavailable [phone] Encounter Details Date Type Department Care Team (Late st Contact Info) Description 03/31/2017 Prep for Surgery [facility] General & GI Surgery [address] [place] [address] ASB2-3 [place] [address] Mercy Lyles MD [address] [place] [address] Department of Anesthesiology-CWN L1 [place] [address] [email or web address] Social History Tobacco Use Types Packs/Day Years [...] Procedure Pass [facility] Imaging Department, [facility] [place] [address] [facility], Floor L1 [place] [address] 10/12/2024 Procedure Pass [facility] Imaging Department, [facility] [place] [address] [facility], Floor L1 [place] [address] 03/08/2025 8:50 AM EST Blood Draw Laboratory Services, [facility] [place] [address] [facility] 3rd [place] [address] Jair Gonzalez MD, PhD [address] [place] [phone] Samm@d [email or web address] 03/08/2025 10:40 AM EST Appointment [facility] Imaging Department, [facility] [place] [address] [facility], Floor L1 [place] [address] Jair Gonzalez MD, PhD [address] [place] [phone] [email or web address] 03/08/2025 2:00 PM EST Office Visit [facility], [address], 10th [place] [address] Jair Gonzalez MD, PhD [address] [place] [phone] [email or web address] documented as of this encounter Visit Diagnoses Not on filedocumented in this encounter Care Teams Emergency Management Program Specialist Relationship Specialty Start Date End Date Alban Abrams MD [address] [place] [address] PCP - General Internal Medicine 02/17/17 Self-Referred, Patient Referring Physician 02/17/17 Jair Gonzalez MD, PhD [address] [place] [address] [email or web address] Primary Oncologist Oncology 02/17/17 Jair Gonzalez MD, PhD [address] [place] [phone] [email or web address] Primary Oncologist Oncology 02/17/17 Raymon Norman MD [address] [place] [address] [email or web address] Primary Oncologist Surgical Oncology 03/17/17 Shiloh Beck MD [address] [place] [address] [email or web address] Hematology and Oncology 12/30/17 documented as of this encounter Additional Source Comments The information contained in this document represents components of the legal health record. It is not the complete legal health record.[facility]
--- OUTSIDE RECORDS SUMMARY | 2025-01-28 19:00 | XMS_ITS | Encounter Summary ---
Author Organization [facility] Address [address] [facility] [address] [place] [address] Phone Care Team Providers Care Bindery Machine Setter/Set Up Operator Name Role Phone Alban Abrams MD Primary Care Provider [phone] Self-Referred, Patient Unavailable Unavailab Jair Rodriguez MD, PhD Unavailable [phone] Jair Gonzalez MD, PhD Unavailable [phone] Raymon Norman MD Unavailable [phone] Shiloh Beck MD Unavailable [phone] Encounter Details Date Type Department Care Team (Late st Contact Info) Description 06/10/2017 Procedure Pass [facility] Imaging Department, [facility], [place] [address] [facility], Floor L1 [place] [address] Social History Tobacco Use Types Packs/Day Years [...] Pass [facility] Imaging Department, [facility] [place] [address] [facility], Floor L1 [place] [address] 10/12/2024 Procedure Pass [facility] Imaging Department, [facility] [place] [address] [facility], Floor L1 [place] [address] 03/08/2025 8:50 AM EST Blood Draw Laboratory Services, [facility] [place] 300 [facility] 3rd [place] [address] Jair Gonzalez MD, PhD [address] [place] [phone] [email or web address] 03/08/2025 10:40 AM EST Appointment [facility] Imaging Department, [facility] [address] [facility], Floor L1 [place] [address] Jair Gonzalez MD, PhD [address] [place] [phone] [email or web address] [email or web address] 03/08/2025 2:00 PM EST Office Visit [facility], [address], 10th [place] [address] Jair Gonzalez MD, PhD [address] [place] [phone] [email or web address]@d [email or web address] documented as of this encounter Visit Diagnoses Not on filedocumented in this encounter Care Teams Bindery Machine Setter/Set Up Operator Relationship Specialty Start Date End Date Alban Abrams MD [address] [place] [address] [place] [address] PCP - General Internal Medicine 02/17/17 Self-Referred, Patient Referring Physician 02/17/17 Jair Gonzalez MD, PhD [address] [place] [phone] [email or web address] Primary Oncologist Oncology 02/17/17 Jair Gonzalez MD, PhD [address] [place] [phone] [email or web address] Primary Oncologist Oncology 02/17/17 Raymon Norman MD [address] [place] [address] [email or web address] Primary Oncologist Surgical Oncology 03/17/17 Shiloh Beck MD 5 [place] [address] [email or web address] Hematology and Oncology 12/30/17 documented as of this encounter Additional Source Comments The information contained in this document represents components of the legal health record. It is not the complete legal health record.[facility]
--- OUTSIDE RECORDS SUMMARY | 2025-01-28 19:00 | XMS_ITS | Encounter Summary ---
Author Organization [facility] Address [address] [facility] [address] [place] [address] Phone Care Team Providers Care Corporate Account Executive Name Role Phone Alban Abrams MD Primary Care Provider [phone] Self-Referred, Patient Unavailable Unavailab Jair Rodriguez MD, PhD Unavailable [phone] Jair Gonzalez MD, PhD Unavailable [phone] Raymon Norman MD Unavailable [phone] Shiloh Beck MD Unavailable [phone] Encounter Details Date Type Department Care Team (Late Contact Info) Description 04/13/2017 Procedure Pass [facility] Endoscopy Department 75 [place] [address] Social History Tobacco Use Types Packs/Day Years [...] st Contact Info) Description 10/12/2024 Procedure Pass [facility] Imaging Department, [facility] [place] [address] [facility], Floor L1 [place] [address] 10/12/2024 Procedure Pass [facility] Imaging Department, [facility] [place] [address] [facility], Floor L1 [place] [address] 03/08/2025 8:50 AM EST Blood Draw Laboratory Services, [facility] [place] 300 [facility] 3rd [place] [address] Jair Gonzalez MD, PhD [address] [place] [phone] Samm@d [email or web address] 03/08/2025 10:40 AM EST Appointment [facility] Imaging Department, [facility], [place] [address] [facility], Floor [address]1 [place] [address] Jair Gonzalez MD, PhD [address] [place] [phone] Samm@d [email or web address] 03/08/2025 2:00 PM EST Office Visit [facility], [address], 10th [place] [address] Jair Gonzalez MD, PhD [address] [place] [phone] Samm@d [email or web address] documented as of this encounter Visit Diagnoses Not on filedocumented in this encounter Care Teams Corporate Account Executive Relationship Specialty Start Date End Date Alban Abrams MD [address] [place] [address] [place] [address] PCP - General Internal Medicine 02/17/17 Self-Referred, Patient Referring Physician 02/17/17 Jair Gonzalez MD, PhD 450 [place] [address] [email or web address] Primary Oncologist Oncology 02/17/17 Jair Gonzalez MD, PhD [address] [place] [phone] [email or web address] Primary Oncologist Oncology 02/17/17 Raymon Norman MD [address] [place] [address] [email or web address] Primary Oncologist Surgical Oncology 03/17/17 Shiloh Beck MD [address] [place] [phone] [email or web address] Hematology and Oncology 12/30/17 documented as of this encounter Additional Source Comments The information contained in this document represents components of the legal health record. It is not the complete legal health record.[facility]
--- OUTSIDE RECORDS SUMMARY | 2025-01-28 19:00 | XMS_ITS | Encounter Summary ---
Author Organization [facility] Address [address] [facility] [address] [place] [address] Phone Care Team Providers Care Color Depositing Machine Tender Name Role Phone Alban Abrams MD Primary Care Provider Self-Referred, Patient Unavailable Unavailab Jair Rodriguez MD, PhD Unavailable [phone] Jair Gonzalez MD, PhD Unavailable [phone] Raymon Norman MD Unavailable [phone] Shiloh Beck MD Unavailable [phone] Encounter Details Date Type Department Care Team (Late st Contact Info) Description 01/16/2021 Procedure Pass [facility], [facility] [place], [place] [address] [facility], Floor [address] [place] [address] Social History Tobacco Use Types Packs/Day Years [...] Procedure Pass [facility] Imaging Department, [place] [address] [facility], [address] [place] [address] 10/12/2024 Procedure Pass [facility] Imaging Department, [place] [address] [facility], Floor [address] [place] [address] 03/08/2025 8:50 AM EST Blood Draw Laboratory Services, [place] [place] [facility] [place] [address] [facility] 3rd [place] [address] Jair Gonzalez MD, PhD [address] [place] [phone] [email or web address] 03/08/2025 10:40 AM EST Appointment [facility] Imaging Department, [place] [address] [facility], Floor [address] [place] [address] Jair Gonzalez MD, PhD [address] [place] [phone] [email or web address] 03/08/2025 2:00 PM EST Office Visit [facility], [address], 10th [place] [address] Jair Gonzalez MD, PhD [address] [place] [phone] [email or web address] documented as of this encounter Visit Diagnoses Not on filedocumented in this encounter Care Teams Color Depositing Machine Tender Relationship Specialty Start Date End Date Alban Abrams MD [address] [place] [address] [place] [address] PCP - General Internal Medicine 02/17/17 Self-Referred, Patient Referring Physician 02/17/17 Jair Gonzalez MD, PhD [address] [place] [phone] [email or web address] Primary Oncologist Oncology 02/17/17 Jair Gonzalez MD, PhD [address] [place] [phone] [email or web address] Primary Oncologist Oncology 02/17/17 Raymon Norman MD [address] [place] [phone] [email or web address] Primary Oncologist Surgical Oncology 03/17/17 Shiloh Beck MD [address] [place] [phone] [email or web address] 12/30/17 documented as of this encounter Additional Source Comments The information contained in this document represents components of the legal health record. It is not the complete legal health record.[facility]
--- OUTSIDE RECORDS SUMMARY | 2025-01-28 19:00 | XMS_ITS | Encounter Summary ---
Author Organization [facility] Address [address] [facility] [address] [place] [address] Phone Care Team Providers Care Dipper Machine Operator Name Role Phone Alban Abrams MD Primary Care Provider [phone] Self-Referred, Patient Unavailable Unavailab Jair Rodriguez MD, PhD Unavailable [phone] Jair Gonzalez MD, PhD Unavailable [phone] Raymon Norman MD Unavailable [phone] Shiloh Beck MD Unavailable Encounter Details Date Type Department Care Team (Late st Contact Info) Description 06/12/2021 Procedure Pass [facility] [place] [facility] [place] [address] [facility] 3rd [place] [address] Social History Tobacco Use Types Packs/Day Years [...] st Contact Info) Description 10/12/2024 Procedure Pass [facility] Imaging Department, [facility], [place] [address] [facility], Floor [address]1 [place] [address] 10/12/2024 Procedure Pass [facility] Imaging Department, [facility], [place] [address] [facility], Floor [address] [place] [address] 03/08/2025 8:50 AM EST Blood Draw Laboratory Services, [facility] [place] [address] [facility] 3rd [place] [address] Jair Gonzalez MD, PhD [address] [place] [phone] [email or web address] 03/08/2025 10:40 AM EST Appointment [facility] Imaging Department, [facility], [place] [address] [facility], Floor [address] [place] [address] Jair Gonzalez MD, PhD [address] [place] [phone] [email or web address] 03/08/2025 2:00 PM EST Office Visit [facility], [address], 10th [place] [address] Jair Gonzalez MD, PhD [address] [place] [phone] [email or web address] documented as of this encounter Visit Diagnoses Not on filedocumented in this encounter Care Teams Dipper Machine Operator Relationship Specialty Start Date End Date Alban Abrams MD [address] [place] [address] [place] [address] PCP - General Internal Medicine 02/17/17 Self-Referred, Patient Referring Physician 02/17/17 Jair Gonzalez MD, PhD [address] [place] [phone] [email or web address] Primary Oncologist Oncology 02/17/17 Jair Gonzalez MD, PhD [address] [place] [phone] [email or web address] Primary Oncologist Oncology 02/17/17 Raymon Norman MD [address] [place] [phone] [email or web address] Primary Oncologist Surgical Oncology 03/17/17 Shiloh Beck MD [address] [place] [address] [email or web address] Hematology and Oncology 12/30/17 documented as of this encounter Additional Source Comments The information contained in this document represents components of the legal health record. It is not the complete legal health record.[facility]
[2025-01-28 19:27] LABS: Reflex Lactate? Lactic Acid Added
[2025-01-28 19:44] LABS: Resp Syncy Virus RNA Qual PCR NEGATIVE (Negative); SARS COV2 PCR INHOUSE NEGATIVE (Negative)
[2025-01-28 20:10] VITALS: BP 168/103; PULSE 99; RESP 19; TEMP 36.8; O2SAT 97
[2025-01-28] MEDS: Lactated Ringers 1,000 ML 999 ML IV (20:20)
[2025-01-28 20:30] LABS: Appearance Urine Clear; Glucose Urine UA Negative (Negative); PH 6.5 (5.0-9.0); Specific Gravity - Urine 1.015 (1.005-1.025)
[2025-01-28 20:55] LABS: NT Pro B Type Natriuretic Pept 1142.6 pg/mL (<300); Troponin-I High Sensitivity 17.9 ng/L (<3.5-35.0)
[2025-01-28 22:16] LABS: ~Lactic Acid-LAB USE ONLY 1.9 mmol/L (0.5-2.0)
[2025-01-28 22:29] VITALS: BP 182/102; PULSE 100; RESP 19; TEMP 36.9; O2SAT 97
[2025-01-29] VITALS (9 sets, daily range): BP systolic 116–168; BP diastolic 63–99; PULSE 90–104; RESP 19–20; TEMP 36.5–36.9; O2SAT 93–98
--- NOTE | 2025-01-29 07:32 | PC.NURSE ---
Pt A&O X4 NAD,eating bkfts no complaints.
--- NOTE | 2025-01-29 10:10 | MHC.CM.ED ---
Received case management consult overnight. Patient came to the eR due to weakness. Work up essentially negative. Physical therapy eval ordered and pending. Met with patient and , Nara, in regards to discharge planning. Terrance moore recently at [facility] Patient claims he only received 20 mins of individual therapy and 30 mins of group therapy. Patient and Nara do not feel this was enough therapy. Choices: 1) [facility] 3) [facility]. Patient and Nara aware it is unlikely [facility] will authorize acute rehab at [facility]. Continue to monitor for d/c needs.
--- NOTE | 2025-01-29 10:38 | PC.NURSE ---
Pt unable to remember home meds and confirm I have asked the patients family to bring in scripts so we can confirm.
--- NOTE | 2025-01-29 11:28 | MHC.CM.ED ---
Addendum entered by Alem Santos 01/29/25 14:01: Patient's requesting referral to [facility] in [place] because it is close to her work. Referral made via [facility]. Addendum entered by Alem Santos 01/29/25 13:16: [facility] are unable to offer a bed. Referral broadcasted within 10 miles of patient's home at this time. Bed offers will be discussed with patient and . Original Note: [facility] is not contracted with patient's insurance. [facility] does not believe will auth acute rehab. [facility] does not have a bed. Met with patient and in regards to d/c planning. Choices: 1)[facility] 2)[facility]. Continue to monitor for d/c needs.
--- NOTE | 2025-01-29 11:53 | MHC.EDTECH ---
150mL of yellow urine emptied from bedside urinal
--- NOTE | 2025-01-29 12:38 | MHC.EDTECH ---
pt independently transferred to hospital bed with use of walker. call kay, urinal, and bedside table within reach.
--- NOTE | 2025-01-29 13:29 | MHC.EDTECH ---
300mL of urine emptied from urinal
--- NOTE | 2025-01-29 13:39 | PHA.MEDREC ---
Addendum entered by Geovanna Constantino RPh 01/29/25 14:47: MED REC REVIEWED BY [facility] Original Note: Pharmacy Consult ? Medication Reconciliation Pharmacy has completed the medication reconciliation. Spoke with pt and he confirmed his medications. Pt states uses Cyclobenzaprine TID as needed for muscle spasms, Gabapentin TID as needed for pain, Hydromorphone TID and he still has Zolpidem tabs as needed for sleep.
--- NOTE | 2025-01-29 16:44 | PC.NURSE ---
assumed care of pt at 1530 report received from carol BOLANOS
--- NOTE | 2025-01-29 18:46 | MHC.EDTECH ---
pt emptied 400mL of light yellow urine in urinal
--- NOTE | 2025-01-29 19:50 | PC.NURSE ---
assumed care of pt, pt reports nasal congestion. provider advised, awaiting new orders
[2025-01-30 01:17] VITALS: BP 127/76; PULSE 97; RESP 16; TEMP 36.6; O2SAT 94
--- NOTE | 2025-01-30 08:28 | PC.NURSE ---
Assumed care of patient at 0645. Patient alert resting in bed. Stating pain in lumbar spine 08/08. Morning medications given. Breakfast at bedside. Patient declined at this time. Call kay within reach.
[2025-01-30 09:23] VITALS: BP 179/94; PULSE 93; RESP 18; TEMP 36.7; O2SAT 95
--- NOTE | 2025-01-30 10:09 | MHC.CM.ED ---
Addendum entered by Alem Santos 01/30/25 12:27: [facility] are able to offer private rooms. [facility] and [facility] are not. Patient's , Nara will notify CM of 1st choice. Original Note: [facility] is able to offer a bed. Met with patient and to discuss bed offers. Patient asking if it is a private room. asks if [facility] a private room. T/W will reach out to both facilities to see. If neither can offer a private room, would like to tour both facilities to determine a preference. Continue to monitor for d/c needs.
--- NOTE | 2025-01-30 13:51 | MHC.CM.ED ---
Patient accepts bed at [facility]. Facility has been asked to obtain ins auth. Continue to monitor for d/c needs.
--- NOTE | 2025-01-30 17:59 | MHC.CM.ED ---
CM spoke with patient regarding D/C plan. Pt accepted a bed at [facility]. Auth is pending. Pt has [employer] PPO. Pt states he does not want BLS transport, as the ambulance is too expensive. CM had concerns about patient being able to get in and out of the car. Pt states he can transfer from w/c to car. States his can drive him.
[2025-01-30 19:42] VITALS: BP 150/80; PULSE 106; RESP 20; TEMP 37.1; O2SAT 94
[2025-01-30 20:58] VITALS: BP 126/72
[2025-01-31 05:11] VITALS: BP 168/95; PULSE 98; RESP 16; TEMP 37.2; O2SAT 94
--- NOTE | 2025-01-31 06:26 | PC.NURSE ---
Assumed care of pt at 1900 01/30/25. PT a/ox4- able to able needs known. PT slept very sporadically throughout evening as he was watching tv, and making phone calls throughout the night. TW recommended to create sleep positive environment so he could get much needed rest, pt decline. PT offered PRN sleep aid to which he declined. VSS. PT using urinal with no issues. Safety precautions in place. Awaiting ins auth for STR placement. Plan of care ongoing
--- NOTE | 2025-01-31 12:07 | PC.NURSE ---
buttocks intact without redness, barrier creamm applied
[2025-01-31 14:00] VITALS: BP 147/80; PULSE 96; RESP 18; TEMP 37.2; O2SAT 92
--- NOTE | 2025-01-31 14:36 | MHC.CM.ED ---
Patient remains in ER overflow. Waiting for ins auth for [facility]. Continue to monitor for d/c needs.
[2025-01-31 19:45] VITALS: BP 150/80; PULSE 101; RESP 18; TEMP 36.7; O2SAT 96
[2025-02-01 06:02] VITALS: BP 140/70; PULSE 97; RESP 16; TEMP 36.7; O2SAT 93
--- NOTE | 2025-02-01 09:11 | PC.NURSE ---
Report received from Demetri BOLANOS. Requested Venlafaxine from pharmacy, unavailable in [facility]. Care ongoing by this RN.
--- NOTE | 2025-02-01 10:56 | PC.NURSE ---
Patient sleeping at this time, respirations even/unlabored. Medicated earlier this shift per provider orders. Denies needs at this time. Call kay within reach, bed alarm on. Care ongoing by this RN.
--- NOTE | 2025-02-01 11:42 | PC.NURSE ---
Patient's (Nara) at bedside visiting. is asking to speak with embedded case manager (Alem Santos). CM notified, and will contact/update upon return to her office (as stated in [facility]). concerned about a scheduled appointment occurring later today, advised to reschedule by CM. Care ongoing by this RN. Lunch tray provided.
--- NOTE | 2025-02-01 13:13 | MHC.CM.ED ---
Patient remains in ER overflow. [facility] is still trying to obtain ins auth. Spoke with patient's , Nara, via telephone at [phone]. T/W explained [facility] was still waiting for ins auth for [facility]. Patient has a neurology/sleep appointment scheduled for 2pm today. T/W explained patient would have to leave ER in order to make appointment but rehab process would start all over again. Otherwise appointment will have to be rescheduled. Nara will reschedule appointment. Continue to monitor for d/c needs.
[2025-02-01 14:00] VITALS: BP 154/73; PULSE 102; RESP 18; TEMP 36.8; O2SAT 95
--- NOTE | 2025-02-01 20:26 | PC.NURSE ---
RN assumed care at 1900. pt asked for mucinex. Previous RN message pharmacy. RN messaged about that medication and others that were not in pyxis. Pharmacy dropped meds off- RN went to medicate pt and pt does not have identifier bracelet. RN messaged ore charger so another can be printed. Waiting on bracelet before administering meds to pt.
[2025-02-01 20:58] VITALS: BP 154/73
[2025-02-01] MEDS: guaiFENesin LA 600 MG TAB.ER.12H PO (20:58)
[2025-02-01 21:00] VITALS: BP 135/67; PULSE 99; RESP 20; TEMP 37; O2SAT 92
[2025-02-02 05:51] VITALS: BP 165/81; PULSE 90; RESP 16; TEMP 36.8; O2SAT 93
[2025-02-02] MEDS: guaiFENesin LA 600 MG TAB.ER.12H PO (13:49)
[2025-02-02 14:00] VITALS: BP 121/68; PULSE 100; RESP 18; TEMP 36.7; O2SAT 95
[2025-02-02 21:06] VITALS: BP 158/75; PULSE 98; RESP 18; TEMP 36.9; O2SAT 94
--- NOTE | 2025-02-02 23:30 | MHC.CM.ED ---
CM contacted [facility] regarding auth. Waiting to hear from facility. Pt has [employer] PPO
[2025-02-03] MEDS: guaiFENesin DM 600/30 1 TAB TAB.ER.12H PO (02:22)
[2025-02-03 05:26] VITALS: BP 122/68; PULSE 100; RESP 16; TEMP 37.2; O2SAT 94
--- NOTE | 2025-02-03 06:17 | PC.NURSE ---
Assumed care of patient in ED OVF at 1900. Patient is alert and oriented x 4.? Room air, has persistient moist cough, patient reports taking mucinex at home Q6H for the past 40 years. Patient utilizing urinal at bedside. Taking medication per APR. Bed in lowest position, locked and alarmed. Call kay within reach. [facility]
[2025-02-03 14:00] VITALS: BP 146/72; PULSE 88; RESP 17; TEMP 36.6; O2SAT 90
[2025-02-03] MEDS: guaiFENesin LA 600 MG TAB.ER.12H PO (14:11)
[2025-02-03 17:35] VITALS: O2SAT 93
[2025-02-03 19:31] LABS: MANUAL DIFF FLAG NO
[2025-02-03 19:32] LABS: Hematocrit 33.6 % (42.0-52.0); Hemoglobin 10.9 g/dl (14.0-18.0); Imm Gran Abs Auto 0.02 X10*3/uL (0.00-0.03); Imm Gran Pct Auto 0.4 % (0.0-0.4); Lymphocytes Absolute Auto 0.9 X10*3/uL (1.2-4.9); Mean Corpuscular HGB Conc 32.4 g/dl (31.0-36.0); Mean Corpuscular Hemoglobin 29.7 pg (27.0-33.0); Mean Corpuscular Volume 91.6 fL (80.0-98.0); NRBC Abs Auto 0.000 X10*3/uL (0.0-0.012); NRBC Pct Auto 0.0 /100WBC (0.0-0.2); Platelet Count 141 X10*3/uL (160-400); Red Blood Count 3.67 X10*6/uL (4.60-5.80); White Blood Count 4.9 X10*3/uL (4.8-10.8)
[2025-02-03 19:46] LABS: Alanine Aminotransferase 20 U/L (0-40); Albumin Level 3.2 g/dL (3.5-5.0); Alkaline Phosphatase 84 U/L (39-117); Anion Gap 10 (12-20); Aspartate Amino Transferase 23 U/L (5-37); Blood Urea Nitrogen 20 mg/dL (9-16); Calcium 9.3 mg/dL (8.4-10.2); Carbon Dioxide 28 mmol/L (22-29); Chloride 106 mmol/L (96-108); Creatinine Clr Calc Pharmacy 76.3; Estimated Glomerular Filt Rate > 60; Magnesium 1.7 mg/dL (1.6-2.6); Potassium 4.9 mmol/L (3.3-5.1); Sodium 139 mmol/L (135-145); Total Protein 6.2 g/dL (6.5-8.0)
[2025-02-03 19:47] LABS: Resp Syncy Virus RNA Qual PCR NEGATIVE (Negative); SARS COV2 PCR INHOUSE NEGATIVE (Negative)
[2025-02-03 19:52] LABS: NT Pro B Type Natriuretic Pept 184.5 pg/mL (<300)
[2025-02-03 20:28] VITALS: BP 135/66; PULSE 92; RESP 18; TEMP 37.1; O2SAT 92
[2025-02-03] MEDS: Throat Lozenge, Medicated LOZENGE 1 LOZENGE MUCOUS MEM (23:13)
[2025-02-03] MEDS: iohexoL 350 MG/ML 100 ML INFUS..BTL IV (23:55)
--- NOTE | 2025-02-03 23:56 | ECG_ITS ---
Test Reason : CP Blood Pressure : */* mmHG Vent. Rate : 92 BPM Atrial Rate : 92 BPM P-R Int : 170 ms QRS Dur : 128 ms QT Int : 386 ms P-R-T Axes : 93 -10 106 degrees QTcB Int : 477 ms Normal sinus rhythm Non-specific intra-ventricular conduction block T wave abnormality, consider anterior ischemia Abnormal ECG When compared with ECG of 28-Jan-2025 17:07, Premature atrial complexes are no longer Present Nonspecific T wave abnormality no longer evident in Inferior leads Referred By: Carlos Tolentino Electronically Signed By: MARIELA PEREIRA
[2025-02-04] MEDS: guaiFENesin LA 600 MG TAB.ER.12H PO ×2 (01:35→13:30)
[2025-02-04 05:58] VITALS: BP 147/70; PULSE 92; RESP 16; TEMP 36.7; O2SAT 94
--- NOTE | 2025-02-04 07:51 | PC.NURSE ---
Assumed care of patient in ED OVF at [phone]. During the night patient continues to experience a moist productive cough with right sided chest pain. EKG, CXY, Labs and Chest CT all performed and resulted with Carlos ZAMBRANO reviewing. Sputum culture ordered and sent as patient with cough expectorating moderate amounts of major thick phlegm. Patient continues to be medicated with Dilaudid, Gabapentin and Flexeril for chest pain associated with deep coughing, chronic back pain and neuropathy of lower legs. Pt reports moderate effect from pain with medications provided. VSS. Patient alert oriented x4. 2 assist to reposition in the bed secondary to weakness. RA with decreased BS on left and right sided rhonchi present upon auscultation. Pt is on RA slight Orthopnea noted during repositioning. Maintained O2sats on RA as not presently wearing CPAP at night. No s/s of apnea. Pt with bilateral nonpitting lower leg edema which patient reports is at baseline . Patient utilizing urinal at bedside, voiding 1000mL of clear yellow urine for shift. Bed in lowest position, locked and alarmed. Call button within reach.
[2025-02-04 08:39] VITALS: BP 151/79; PULSE 92; RESP 16; TEMP 37.1; O2SAT 91
[2025-02-04 14:00] VITALS: BP 146/72; PULSE 92; RESP 18; TEMP 36.9; O2SAT 93
[2025-02-04 20:34] VITALS: BP 152/80
--- NOTE | 2025-02-04 21:10 | PC.NURSE ---
pt repositioned in bed. purewick in place, respirations even and unlabored.
[2025-02-05] MEDS: guaiFENesin LA 600 MG TAB.ER.12H PO ×2 (01:04→15:34)
[2025-02-05 06:00] VITALS: BP 167/79; PULSE 87; RESP 14; TEMP 36.7; O2SAT 91
[2025-02-05 07:33] LABS: Glucose, Whole Blood 135 mg/dL (60-115)
[2025-02-05 09:14] VITALS: BP 154/71; PULSE 94; RESP 19; TEMP 36.3; O2SAT 91
--- NOTE | 2025-02-05 11:15 | PC.NURSE ---
Assumed care of patient in ED OVF at 1100 Patient is alert and oriented x 4 sitting up in bed watching TV playing on phone. Room air, has persistent productive cough Patient utilizing urinal at bedside. Taking medication per APR. Bed in lowest position, locked and alarmed. Call kay within reach. [facility]
[2025-02-05 14:00] VITALS: BP 129/72; PULSE 90; RESP 18; TEMP 36.5; O2SAT 97
--- NOTE | 2025-02-05 19:40 | MHC.EDTECH ---
Patient refused vitals to be taken, this PCT explained the importance of obtaining vitals and patient verbalized understanding and continued to refuse. RN aware
--- NOTE | 2025-02-05 21:50 | PC.NURSE ---
Assumed care of pt at 1900. PT resting quietly using his phone. When attempting to take vitals pt refused and told tech she did not know how to do her job. During medication administration time, pt agreeable to having vitals taken. PT medicated as per APR. During this time pt presented with notable changes to his baseline oriented. He was unsure of the date, and needed clarification multiple times on the time. PT notably confused and unable to grasp the date and time. PT called and other family members to clarify time. TW spoke with his who reports concern regarding his behavior she states she feels that the environment of the unit is contributing to his decline due to lack of sleep because of the yelling. Provider Carlos Tolentino aware. Plan for monitoring and CT if pt continues to decline
[2025-02-05 21:51] VITALS: BP 179/80
[2025-02-05 21:52] VITALS: BP 179/80; PULSE 99; RESP 18; TEMP 36.7; O2SAT 96
--- NOTE | 2025-02-05 23:42 | PC.NURSE ---
PT becoming increasingly agitated and paranoid. Speaking with family members on the phone regarding concerns with care but when staff approached pt multiple time to meet needs or to see if he needs anything he declines. PT came to visit pt at 2315. When speaking to pt yelling and swearing at her. notes that she is concerned because he has gotten worse over the past few hours and agrees is paranoid. Provider placed order for stat head CT.
[2025-02-06] MEDS: guaiFENesin LA 600 MG TAB.ER.12H PO ×2 (03:34→20:51)
--- NOTE | 2025-02-06 03:40 | PC.NURSE ---
pt requesting prn medications reporting 6/10 pain and muscle spasms
[2025-02-06 06:51] VITALS: BP 147/73; PULSE 87; RESP 22; O2SAT 99
--- NOTE | 2025-02-06 08:37 | MHC.CM.ED ---
Addendum entered by Alem Santos 02/06/25 08:50: Patient's , Nara, states she on her way to [facility] because she was told they had a bed. T/W explained Nara would have to work with [facility] to transfer him to [facility] if they were able to offer him a bed. Also explained [facility] denied patient a bed on 01/29. Original Note: Patient remains in ER overflow. Ins auth has been obtained by [facility]. Fidel RIVAS booked for 11am. Med [facility] with chart. Patient, Nara, Aracelis RN and Savannah ZAMBRANO aware. Continue to monitor for d/c needs.
[2025-02-06 10:09] LABS: Appearance Urine Clear; Glucose Urine UA Negative (Negative); PH 5.5 (5.0-9.0); Specific Gravity - Urine <= 1.005 (1.005-1.025); UMIC TRIGGER UACC YES
[2025-02-06 10:11] LABS: UACC Culture Trigger YES
--- NOTE | 2025-02-06 10:24 | MHC.CM.ED ---
Received notification that patient became confused during additional PT eval. D/C to [facility] on hold at his time. Additional medical work up pending. Continue to monitor for d/c needs.
[2025-02-06 14:00] VITALS: BP 153/82; PULSE 83; RESP 16; TEMP 36.3
[2025-02-06 20:45] VITALS: BP 153/82
[2025-02-06 21:48] VITALS: BP 161/86; PULSE 98; RESP 15; TEMP 36.4; O2SAT 98
[2025-02-07 06:14] VITALS: BP 158/79; PULSE 89; RESP 14; TEMP 37.2; O2SAT 98
--- NOTE | 2025-02-07 08:32 | MHC.CM.ED ---
Addendum entered by Alem Santos 02/07/25 13:57: Attempted to notify patient's , Nara, via telephone at [phone]. Left voicemail with d/c info. Addendum entered by Alem Santos 02/07/25 13:56: Patient, Imer BOLANOS and Evelyne ZAMBRANO aware. Addendum entered by Alem Santos 02/07/25 09:26: Facility has to resubmit for auth. S transport booked for 3pm as long as auth is obtained. Med [facility] with chart. Original Note: Patient remains in ER overflow. Updated clinical updates sen to [facility]. Waiting to hear on a time patient can transfer to their facility. Continue to monitor for d/c needs.
[2025-02-07] MEDS: guaiFENesin LA 600 MG TAB.ER.12H PO (09:00)
[2025-02-07 10:34] VITALS: BP 139/60; PULSE 94; RESP 20; TEMP 36.4; O2SAT 95
[2025-02-07 13:46] VITALS: BP 136/96; PULSE 70; RESP 20; TEMP 36.7; O2SAT 96
--- NOTE | 2025-02-07 15:19 | PC.NURSE ---
report given to facility. iv removed. belongings w/ pt
[2025-02-07 15:49] VITALS: BP 136/96; PULSE 70; RESP 20; TEMP 36.7; O2SAT 96
== END 2025-02-07 15:42 ==
PROVIDERS: Nurse Practitioner; Physician Assistant; Physician Assistant Medical; Emergency Provider Emergency Medicine Emergency Medical Services; PCP Internal Medicine
DX: R53.1 Weakness (principal); N39.0 Urinary tract infection, site not specified; R29.6 Repeated falls; E87.20 Acidosis, unspecified; C18.9 Malignant neoplasm of colon, unspecified; C78.7 Secondary malignant neoplasm of liver and intrahepatic bile duct; R09.81 Nasal congestion; R09.02 Hypoxemia; R07.89 Other chest pain; R91.8 Other nonspecific abnormal finding of lung field; I10 Essential (primary) hypertension; R94.31 Abnormal electrocardiogram [ECG] [EKG]; E11.9 Type 2 diabetes mellitus without complications; R06.02 Shortness of breath; R26.81 Unsteadiness on feet; G47.33 Obstructive sleep apnea (adult) (pediatric); M54.50 Low back pain, unspecified; M79.672 Pain in left foot; M62.830 Muscle spasm of back; Z99.89 Dependence on other enabling machines and devices; Z88.6 Allergy status to analgesic agent; Z03.818 Encounter for observation for suspected exposure to other biological agents ruled out; Z79.899 Other long term (current) drug therapy; Z87.891 Personal history of nicotine dependence
CPT/HCPCS: 36415; 70450; 71045; 71046; 71275; 72100; 80048; 80053; 80076; 81001; 81003; 82550; 82947; 83605; 83735; 83880; 84484; 85025; 87040; 87070; 87077; 87086; 87205; 87502; 87635; 87637; 93005; 96360; 97162; 97530; 99285; J1650; J7120; Q9967

== ENCOUNTER → 2025-01-28 16:47 | Outpatient (BNV) | payer BC, MEDICARE, SELFPAY | PROVIDERS: Emergency Provider Emergency Medicine Emergency Medical Services; PCP Internal Medicine; Visit Provider Internal Medicine | DX: I49.1 Atrial premature depolarization (principal) | CPT/HCPCS: 93010 ==

== ENCOUNTER → 2025-01-28 16:48 | Outpatient (BNV) | payer BC, MEDICARE, SELFPAY | PROVIDERS: PCP Internal Medicine; Visit Provider Radiology Diagnostic Radiology | DX: M51.379 Other intervertebral disc degeneration, lumbosacral region without mention of lumbar back pain or lower extremity pain (principal); M85.88 Other specified disorders of bone density and structure, other site; I70.0 Atherosclerosis of aorta; R05.9 Cough, unspecified; Z95.9 Presence of cardiac and vascular implant and graft, unspecified | CPT/HCPCS: 71045; 72100 ==

== ENCOUNTER → 2025-02-03 18:01 | Outpatient (BNV) | payer BC, MEDICARE, SELFPAY | PROVIDERS: Emergency Provider Emergency Medicine Emergency Medical Services; PCP Internal Medicine; Visit Provider Radiology Diagnostic Radiology | DX: R91.8 Other nonspecific abnormal finding of lung field (principal) | CPT/HCPCS: 71046; 71275 ==

== ENCOUNTER → 2025-02-03 23:56 | Outpatient (BNV) | payer BC, MEDICARE, SELFPAY | PROVIDERS: Emergency Provider Emergency Medicine Emergency Medical Services; PCP Internal Medicine; Visit Provider Internal Medicine | DX: I45.4 Nonspecific intraventricular block (principal) | CPT/HCPCS: 93010 ==

== ENCOUNTER → 2025-02-06 | Outpatient (BNV) | payer BC, MEDICARE, SELFPAY | PROVIDERS: Emergency Provider Emergency Medicine Emergency Medical Services; PCP Internal Medicine; Visit Provider Radiology Diagnostic Radiology | DX: R41.82 Altered mental status, unspecified (principal) | CPT/HCPCS: 70450 ==